=== PATIENT | female | born 1960 | race Caucasian/White ===

== ENCOUNTER 2019-03-22 17:00 | Emergency (ER) | payer MEDICARE ==
[~2019-03-22] VITALS: Ht 162.6 cm; Wt 83.9 kg
[~2019-03-22 17:00] MED LIST: CONSTULOSE10 GM/15 M PO; LOVASTATIN20 MG PO; VENTOLIN HFA18 GM INH
[2019-03-22] MEDS ORDERED: PROCHLORPERAZIN10 MG PO (17:15)
[2019-03-22] MEDS ORDERED: ONDANSETRON ODT8 MG PO (17:16)
[2019-03-22] MEDS ORDERED: FLOVENT HFA12 G1 INH (19:17)
--- NOTE | 2019-03-23 09:06 | EKG ---
[facility] [address] [facility] [place] [address] Signed Normal sinus rhythm Normal ECG No previous ECGs available Confirmed by SELENA BASS MD ([id number]) on 03/23/2019 9:06:00 AM Electronically Signed By: SELENA BASS MD 03/23/1907 PATIENT NAME: ELSY BAXTER Electrocardiogram DATE OF : 58 PHYSICIAN: SELENA BASS MD REPORT #: [id number] REPORT IS CONFIDENTIAL AND NOT TO BE RELEASED WITHOUT AUTHORIZATION
== END 2019-03-22 19:26 | disposition home or self-care (01) ==
LOC: ED 17:00
DX: J45.909 Unspecified asthma, uncomplicated (principal); J31.0 Chronic rhinitis; Z85.43 Personal history of malignant neoplasm of ovary; F17.200 Nicotine dependence, unspecified, uncomplicated; Z85.05 Personal history of malignant neoplasm of liver; Z85.030 Personal history of malignant carcinoid tumor of large intestine; Z85.028 Personal history of other malignant neoplasm of stomach; Z88.5 Allergy status to narcotic agent; Z79.899 Other long term (current) drug therapy
CPT/HCPCS: 71046; 85025; 93005; 93010; 99285-25; 99406

== ENCOUNTER 2019-05-13 08:10 | Emergency (ER) | payer MEDICARE, OTHER ==
[~2019-05-13] VITALS: Ht 162.6 cm; Wt 88.0 kg
[~2019-05-13 08:10] MED LIST changes: +FLOVENT HFA12 G1 INH; +ONDANSETRON ODT8 MG PO; +PROCHLORPERAZIN10 MG PO
--- OUTSIDE RECORDS SUMMARY | 2019-05-13 08:14 | XMS ---
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 [facility] MO[facility] [address] [place] [address] TOTAL 4 NOTE: Visits indicate total known visits. ED/UCC VISIT TRACKING (12 MO.) 05/13/2019 08:11 [facility] [place] TYPE: Emergency COMPLAINT: - BLOODY NOSE 04/23/2019 09:[address] [facility] TYPE: Emergency DIAGNOSES: - Antineoplastic chemotherapy induced pancytopenia - Epistaxis - Epistaxis - Encounter for antineoplastic chemotherapy - Thrombocytopenia, unspecified 03/22/2019 17:01 [facility] [place] TYPE: Emergency COMPLAINT: - DIFFICULTY BREATHING DIAGNOSES: - Allergy status to narcotic agent status - Personal history of malignant neoplasm of ovary - Nicotine dependence, unspecified, uncomplicated - Personal history of other malignant neoplasm of stomach - Chronic rhinitis - Personal history of malignant carcinoid tumor of large intestine - Unspecified asthma, uncomplicated - Other care home (current) drug therapy - Personal history of malignant neoplasm of liver - Shortness of breath 10/21/2018 16:[address] [facility] [place] TYPE: Emergency COMPLAINT: - L FLANK PAIN DIAGNOSES: - Other care home (current) drug therapy - Allergy status to narcotic agent status - Unspecified abdominal pain INPATIENT VISIT TRACKING (12 MO.) No inpatient visits to display in this time frame [id number]
== END 2019-05-13 15:20 | disposition short-term general hospital (02) ==
LOC: ED 08:10
DX: R04.0 Epistaxis (principal); D61.818 Other pancytopenia; D69.6 Thrombocytopenia, unspecified; C56.9 Malignant neoplasm of unspecified ovary; J45.909 Unspecified asthma, uncomplicated; F17.200 Nicotine dependence, unspecified, uncomplicated; Z88.5 Allergy status to narcotic agent; Z79.899 Other long term (current) drug therapy
CPT/HCPCS: 30901; 30905; 80053; 85025; 85610; 86850; 86900; 86901; 86927; 99285-25

== ENCOUNTER 2019-11-22 13:38 | Emergency (ER) | payer MEDICARE, OTHER ==
[~2019-11-22] VITALS: Ht 162.6 cm; Wt 81.7 kg
--- OUTSIDE RECORDS SUMMARY | ~2019-11-22 | XMS | Encounter Summary ---
Demographics + + + | Address | [address] | | | [place] [address] | + + + | Home Phone | | + + + | Preferred Language | Unknown | + + + | Marital Status | | + + + | Confucianist Affiliation | Unknown | + + + | Race | Unknown | + + + | Ethnic Group | Unknown | + + + Author + + + | Author | [facility] | | | and [place] | + + + | Organization | [facility] | | | and [place] | + + + | Address | Unknown | + + + | Phone | Unavailable | + + + Support + + + + + | Name | Relationship | Address | Phone | + + + + + | Jared John | ECON | [address] | | | | | [place] [address] | | + + + + + | Emory Larios | ECON | Unknown | | + + + + + Care Team Providers + +------+ + | Care Knowledge Management Advisor Name | Role | Phone | + +------+ + PCP | Unavailable | + +------+ + Encounter Details +--------+ + + + + | Date | Type | Department | Care Team | Description | +--------+ + + + + | 07/02/ | Orders Only | [facility] | Yancy Clifford MD | | | 2018 | | INFUSION SUPPORT | [address] | | | | | SERVICES [address] | | | | | [address] [place] | [address] | | | | | [address] | | | | | | [address] | | | | | | [phone] | | | +--------+ + + + + Social History + +-------+ +--------+------+ | Tobacco Use | Types | Packs/Day | Years | Date | | | | | Used | | + +-------+ +--------+------+ | Current Every Day | | 0.5 | | | | Smoker | | | | | + +-------+ [...] + + documented as of this encounter Progress Notes Conversion Transaction, Provider Unknown - 07/02/2019 1:00 PM PDTFormatting of this note m ight be different from the original. Progress Notes by Laila Jones RN at 07/02/19 1300 Author: Laila Jones RN Service: (none) Author Type: Registered Nurse Filed: 07/02/19 1305 Encounter Date: 07/02/2019 Status: Signed Front Elevator Operator: Laila Jones RN (Registered Nurse) Port accessed. Labs drawn. Port flushed. Left accessed for treatment. Laila Jones RN docume nted in this encounter Plan of Treatment +--------+ + + + + | Date | Type | Specialty | Care Team | Description | +--------+ + + + + | 11/26/ | Appointment | Infusion Therapy | Yancy Clifford MD | | | 2018 | | | [address] | | | | | | [place] | | | | | | [address] | | | | | | | | +--------+ + + + + | 11/26/ | Office | Oncology | Yancy Clifford MD | | | 2018 | Visit | | [address] | | | | | | [place] | | | | | | [address] | | | | | | | | | | | | [place] | | | | | | [place] [address] | [address] | | | | | | [place] [address] | | | | | | [phone] | | | | | | | | +--------+ + + + + | 11/26/ | Appointment | Infusion Therapy | Yancy Clifford MD | | | 2018 | | | [address] | | | | | | [place] | | | | | | [address] | | | | | | | | +--------+ + + + + | 12/17/ | Appointment | Infusion Therapy | Yancy Clifford MD | | | 2019 | | | [address] | | | | | | [place] | | | | | | [address] | | | | | | | | +--------+ + + + + | 12/17/ | Office | Oncology | Yancy Clifford MD | | | 2019 | Visit | | [address] | | | | | | [place] | | | | | | [address] | | | | | | | | +--------+ + + + + | 12/17/ | Appointment | Infusion Therapy | Yancy Clifford MD | | | 2019 | | | [address] | | | | | | [place] | | | | | | [address] | | | | | | | | +--------+ + + + + documented as of this encounter Procedures + +--------+ + + + | Procedure Name | Priori | Date/Time | Associated Diagnosis | Comments | | | ty | | | | + +--------+ + + + | URINALYSIS WITH | Routin | 07/02/2019 | | Results for this | | MICROSCOPIC IF | e | 12:59 PM | | procedure are in the | | INDICATED | | PDT | | results section. | + +--------+ + + + | URINALYSIS, | Routin | 07/02/2019 | | Results for this | | MICROSCOPIC ONLY | e | 12:59 PM | | procedure are in the | | | | PDT | | results section. | + +--------+ + + + | EXTERNAL LAB: CBC | Routin | 07/02/2019 | | Results for this | | | e | 12:58 PM | | procedure are in the | | | | PDT | | results section. | + +--------+ + + + | CA 125, QUANT | Routin | 07/02/2019 | | Results for this | | | e | 12:58 PM | | procedure are in the | | | | PDT | | results section. | + +--------+ + + + | COMPREHENSIVE | Routin | 07/02/2019 | | Results for this | | METABOLIC PANEL | e | 12:58 PM | | procedure are in the | | | | PDT | | results section. | + +--------+ + + + documented in this encounter Results Urinalysis, Microscopic Only (07/02/2019 12:59 PM PDT) + + + + + + | Component | Value | Ref Range | Performed | Pathologist | | | | | At | Signature | + + + + + + | WBC, UA | 1-5 | 0 - 5 /[HPF] | EXTERNAL | | | | | | LAB | | + + + + + + | RBC, UA | NONE SEEN | 0 - 5 /[HPF] | EXTERNAL | | | | | | LAB | | + + + + + + | Epithelial | 50-100 | /[LPF] | EXTERNAL | | | Cells | | | LAB | | + + + + + + | Bacteria, | TRACE (A) | | EXTERNAL | | | UA | | | LAB | | + + + + + + | MUCUS UA | 2+ | | EXTERNAL | | | | | | LAB | | + + + + + + + + | Specimen | + + | | + + + +---------+ + + | Performing | Address | City/State/Zipcode | Phone Number | | Organization | | | | + +---------+ + + | EXTERNAL LAB | | | | + +---------+ + + Urinalysis with Microscopic if Indicated (07/02/2019 12:59 PM PDT) + + + + + + | Component | Value | Ref Range | Performed | Pathologist | | | | | At | Signature | + + + + + + | Color | YELLOW | | EXTERNAL | | | | | | LAB | | + + + + + + | Clarity | CLEAR | | EXTERNAL | | | | | | LAB | | + + + + + + | Specific | 1.020 | 1.002 - 1.030 | EXTERNAL | | | [place] | | | LAB | | + + + + + + | Leukocyte | NEGATIVE | | EXTERNAL | | | Esterase, | | | LAB | | | Urine | | | | | + + + + + + | Nitrite, | NEGATIVE | | EXTERNAL | | | Urine | | | LAB | | + + + + + + | Urobilinoge | 0.2 | mg/dL | EXTERNAL | | | n, Urine | | | LAB | | + + + + + + | Protein, | 30 (A) | mg/dL | EXTERNAL | | | Urine | | | LAB | | + + + + + + | pH, Urine | 5.5 | 5.0 - 8.0 | EXTERNAL | | | | | | LAB | | + + + + + + | Blood, | NEGATIVE | | EXTERNAL | | | Urine | | | LAB | | + + + + + + | Ketones | NEGATIVE | mg/dL | EXTERNAL | | | | | | LAB | | + + + + + + | Bilirubin, | NEGATIVE | | EXTERNAL | | | Urine | | | LAB | | + + + + + + | Glucose, | NEGATIVE | mg/dL | EXTERNAL | | | Urine | | | LAB | | + + + + + + + + | Specimen | + + | Urine specimen | | (specimen) | + + + +---------+ + + | Performing | Address | City/State/Zipcode | Phone Number | | Organization | | | | + +---------+ + + | EXTERNAL LAB | | | | + +---------+ + + External Lab: CBC (07/02/2019 12:58 PM PDT) + + + + + + | Component | Value | Ref Range | Performed | Pathologist | | | | | At | Signature | + + + + + + | WBC | 7.68 | 3.80 - 11.00 | EXTERNAL | | | | | 10*3/uL | LAB | | + + + + + + | RED CELL | 4.26 | 3.70 - 5.10 | EXTERNAL | | | COUNT | | 10*6/uL | LAB | | + + + + + + | Hgb | 14.0 | 11.3 - 15.5 | EXTERNAL | | | | | g/dL | LAB | | + + + + + + | Hematocrit, | 41.3 | 34.0 - 46.0 % | EXTERNAL | | | POC | | | LAB | | + + + + + + | MCV | 97.0 | 80.0 - 100.0 fL | EXTERNAL | | | | | | LAB | | + + + + + + | MCH | 32.8 | 27.0 - 34.0 pg | EXTERNAL | | | | | | LAB | | + + + + + + | MCHC | 33.8 | 32.0 - 35.5 | EXTERNAL | | | | | g/dL | LAB | | + + + + + + | RDW-CV | 67.8 (H) | 37 - 53 fL | EXTERNAL | | | | | | LAB | | + + + + + + | Platelet | 194 | 150 - 400 | EXTERNAL | | | Count | | 10*3/uL | LAB | | | Plasma | | | | | + + + + + + | MPV | 8.0 | fL | EXTERNAL | | | | | | LAB | | + + + + + + | Differentia | AUTOMATED | | EXTERNAL | | | l Type | | | LAB | | + + + + + + | % Segmented | 59.72 | % | EXTERNAL | | | | | | LAB | | | Neutrophils | | | | | + + + + + + | % | 30.03 | % | EXTERNAL | | | Lymphocytes | | | LAB | | + + + + + + | % Monocytes | 6.48 | % | EXTERNAL | | | | | | LAB | | + + + + + + | % | 2.31 | % | EXTERNAL | | | Eosinophils | | | LAB | | + + + + + + | % Basophils | 1.46 | % | EXTERNAL | | | | | | LAB | | + + + + + + | Absolute | 4.58 | 1.90 - 7.40 | EXTERNAL | | | Segmented | | 10*3/uL | LAB | | | Neutrophils | | | | | + + + + + + | Absolute | 2.31 | 1.00 - 3.90 | EXTERNAL | | | Lymphocytes | | 10*3/uL | LAB | | + + + + + + | Absolute | 0.50 | 0.00 - 0.80 | EXTERNAL | | | Monocytes | | 10*3/uL | LAB | | + + + + + + | Absolute | 0.18 | 0.00 - 0.50 | EXTERNAL | | | Eosinophils | | 10*3/uL | LAB | | + + + + + + | Absolute | 0.11 (H) | 0.00 - 0.10 | EXTERNAL | | | Basophils | | 10*3/uL | LAB | | + + + + + + | RBC | 3+ | | EXTERNAL | | | Morphology | | | LAB | | + + + + + + | RBC | ANISO | | EXTERNAL | | | Morphology | | | LAB | | + + + + + + | Platelet | ADEQUATE | | EXTERNAL | | | Estimate | | | LAB | | + + + + + + + + | Specimen | + + | Blood specimen | | (specimen) | + + + +---------+ + + | Performing | Address | City/State/Zipcode | Phone Number | | Organization | | | | + +---------+ + + | EXTERNAL LAB | | | | + +---------+ + + CA 125, Quant (07/02/2019 12:58 PM PDT) + + + + + + | Component | Value | Ref Range | Performed | Pathologist | | | | | At | Signature | + + + + + + | CA-125 | 11.9Comment: THE SIEMENS | 0 - 35 U/mL | EXTERNAL | | | | (FORMERLY [facility]) ADVIA | | LAB | | | | CENTAUR IMMUNOASSAY | | | | | | METHOD IS USED. RESULTS | | | | | | OBTAINED WITH DIFFERENT | | | | | | ASSAY METHODS OR KITS | | | | | | CANNOT BE USED | | | | | | INTERCHANGEABLY. | | | | + + + + + + + + | Specimen | + + | Blood specimen | | (specimen) | + + + +---------+ + + | Performing | Address | City/State/Zipcode | Phone Number | | Organization | | | | + +---------+ + + | EXTERNAL LAB | | | | + +---------+ + + Comprehensive Metabolic Panel (07/02/2019 12:58 PM PDT) + + + + + + | Component | Value | Ref Range | Performed | Pathologist | | | | | At | Signature | + + + + + + | Na | 139 | 135 - 145 | EXTERNAL | | | | | mmol/L | LAB | | + + + + + + | K | 4.2 | 3.5 - 4.9 | EXTERNAL | | | | | mmol/L | LAB | | + + + + + + | Cl | 103 | 99 - 109 mmol/L | EXTERNAL | | | | | | LAB | | + + + + + + | CO2 | 30 | 23 - 32 mmol/L | EXTERNAL | | | | | | LAB | | + + + + + + | Anion Gap | 10 | 5 - 20 mmol/L | EXTERNAL | | | | | | LAB | | + + + + + + | Glucose, | 155 (H) | 65 - 99 mg/dL | EXTERNAL | | | Fasting | | | LAB | | + + + + + + | BUN | 15 | 8 - 25 mg/dL | EXTERNAL | | | | | | LAB | | + + + + + + | Creatinine | 0.74 | 0.50 - 1.00 | EXTERNAL | | | | | mg/dL | LAB | | + + + + + + | BUN/Creatin | 20 | | EXTERNAL | | | ine Ratio | | | LAB | | + + + + + + | Calcium | 9.6 | 8.5 - 10.5 | EXTERNAL | | | | | mg/dL | LAB | | + + + + + + | Protein, | 6.9 | 6.3 - 8.2 g/dL | EXTERNAL | | | Total | | | LAB | | + + + + + + | Albumin | 3.6 | 3.3 - 4.8 g/dL | EXTERNAL | | | | | | LAB | | + + + + + + | Globulin | 3.3 | 1.3 - 4.9 g/dL | EXTERNAL | | | | | | LAB | | + + + + + + | A/G Ratio | 1.1 | 1.0 - 2.4 | EXTERNAL | | | | | | LAB | | + + + + + + | Bilirubin | 0.4 | 0.1 - 1.5 mg/dL | EXTERNAL | | | Total | | | LAB | | + + + + + + | ALP, | 61 | 35 - 115 U/L | EXTERNAL | | | External | | | LAB | | + + + + + + | AST | 15 | 10 - 45 U/L | EXTERNAL | | | | | | LAB | | + + + + + + | ALT | 14 | 10 - 65 U/L | EXTERNAL | | | | | | LAB | | + + + + + + | Estimated | >60Comment: GFR <60: | mL/min/1.73_m2 | EXTERNAL | | | GFR | CHRONIC KIDNEY DISEASE, | | LAB | | | | IF FOUND OVER A 3 MONTH | | | | | | PERIOD. GFR <15: KIDNEY | | | | | | FAILURE. FOR | | | | | | AMERICANS, MULTIPLY THE | | | | | | CALCULATED GFR BY 1.210. | | | | | | This eGFR is calculated | | | | | | using the MDRD IDMS | | | | | | traceable equation. | | | | + + + + + + + + | Specimen | + + | Blood specimen | | (specimen) | + + + +---------+ + + | Performing | Address | City/State/Zipcode | Phone Number | | Organization | | | | + +---------+ + + | EXTERNAL LAB | | | | + +---------+ + + documented in this encounter Visit Diagnoses Not on filedocumented in this encounter"
--- OUTSIDE RECORDS SUMMARY | ~2019-11-22 | XMS | Encounter Summary ---
Demographics + + + | Address | [address] | | | [place] [address] | + + + | Home Phone | | + + + | Preferred Language | Unknown | + + + | Marital Status | | + + + | Episcopalian Affiliation | Unknown | + + + | Race | Unknown | + + + | Ethnic Group | Unknown | + + + Author + + + | Author | [facility] | | | and [place] | + + + | Organization | [facility] | | | and [place] | + + + | Address | Unknown | + + + | Phone | Unavailable | + + + Support + + + + + | Name | Relationship | Address | Phone | + + + + + | Jared Easonrick | EBENEZER | [address] | | | | | [place] [address] | | + + + + + | Emory Larios | EBENEZER | Unknown | | + + + + + Care Team Providers + +------+ + | Care Librarian Helper Name | Role | Phone | + +------+ + | Shannan Deng | PCP | | + +------+ + Reason for Visit + + + | Reason | Comments | + + + | Follow-up | Malignant neoplasm of left ovary | + + + Encounter Details +--------+---------+ + + + | Date | Type | Department | Care Team | Description | +--------+---------+ + + + | 09/03/ | Office | [facility] | Yancy Clifford MD | Malignant neoplasm | | 2019 | Visit | HEMATOLOGY AND | [address] | of left ovary (HCC) | | | | ONCOLOGY [address] | [place] | (Primary Dx) | | | | [address] | [address] | | | | | [place] | | | | | | [address] | Jennyfer Calvert | | | | | [phone] | M, [employer]TENANCE ENG[employer] [address] | | | | | [address] | | | | | | [place] [address] | | | | | | [phone] | | | | | | | | +--------+---------+ + + + Social History + +-------+ [...] + + documented as of this encounter Last Filed Vital Signs + + + + + | Vital Sign | Reading | Time Taken | Comments | + + + + + | Blood Pressure | 132/74 | 09/03/2019 8:36 AM | | | | | PDT | | + + + + + | Pulse | 95 | 09/03/2019 8:36 AM | | | | | PDT | | + + + + + | Temperature | 36.4 C (97.5 F) | 09/03/2019 8:36 AM | | | | | PDT | | + + + + + | Respiratory Rate | 16 | 09/03/2019 8:36 AM | | | | | PDT | | + + + + + | Oxygen Saturation | 95% | 09/03/2019 8:36 AM | | | | | PDT | | + + + + + | Inhaled Oxygen | - | - | | | Concentration | | | | + + + + + | Weight | 84.4 kg (186 lb 1.3 | 09/03/2019 8:36 AM | | | | oz) | PDT | | + + + + + | Height | 162.6 cm (5' 4.02") | 09/03/2019 8:36 AM | | | | | PDT | | + + + + + | Body Mass Index | 31.92 | 09/03/2019 8:36 AM | | | | | PDT | | + + + + + documented in this encounter Progress Notes Jennyfer Calvert, CIERRA - 09/03/2019 8:45 AM PDTFormatting of this note might be differ ent from the original. [facility] Oncology Progress Note Patient Name: RAMILA BAXTER Date of : 1960 Age: 59 y.o. PCP: SALINA Elaine Surgeon: Dr. 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 The CT showed left pleural effusion, c omplex left adnexal mass, perioartic and common iliac adenopathy, ascites and omental caking . CA125 was 1994. 04/2017 Pathology S/p paracentesis to drain ascites and thoracentesis to drain the left pleural effusion. B ot cytology was positive for ovarian cancer. 04/2017 - 06/2017 Chemotherapy Received 3 cycles of chemo with dose dense carboplatin/ paclitaxel. 05/2017 Genetic Testing Negative genetic testing through [employer] 07/2017 Surgery S/p debulking surgery. 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 Omentum involved by metastatic cancer. 07/2017 - 09/2017 Chemotherapy Received 3 cycles of dose dense carboplatin/ paclitaxel. 09/2017 Remission In remission by scan. CA125 normalized. 12/2018 - Recurrence Rising CA125. CT CAP with contrast showed abdominal / pelvic ANAI and retroperitoneal meta static deposits and masses at B ovarian bed. 01/2019 - Chemotherapy Received 5 cycles of palliative chemo with carboplatin/ gemcitabine/Avastin with great pa rtial response. On maintenance Avastin since 05/2019. Cancer Staging Malignant neoplasm of left ovary (HCC) Staging form: Ovary, Fallopian Tube, And Primary Peritoneal Carcinoma, AJCC 8th Edition - Pathologic: FIGO Stage JOVAN - Signed by Yancy Clifford MD on 07/24/2019 Laterality: Left Interval History Ramila is here today in follow-up for ovarian cancer and clearance for treatment. She stat es she is feeling overall well. She reports receiving her flu shot a week and a half ago. S he denies any concerns or changes since her last visit. She denies fevers or chills. She d enies chest pain shortness of breath or new cough. She denies abdominal pain nausea or childs ges in bowel or bladder function. Medical History Allergies Allergen Reactions Codeine Nausea And Vomiting Past Medical History: Diagnosis Date Arthritis Asthma Blood clot in vein Broken bones Chickenpox Hyperlipidemia Malignant neoplasm (HCC) Past Surgical History: Procedure Laterality Date HYSTERECTOMY Family History Problem Relation Age of Onset Cancer Mother Lung cancer Mother Cancer Father Colon cancer Father Heart attack Father Cancer Other Social History Socioeconomic History Marital status: Spouse name: Not on file Number of children: 2 Years of education: 11 Highest education level: Not on file Social Needs Financial resource strain: Not on file Food insecurity - worry: Not on file Food insecurity - inability: Not on file Transportation needs - medical: Not on file Transportation needs - non-medical: Not on file Occupational History Not on file Tobacco Use Smoking status: Current Every Day Smoker Packs/day: 0.50 Smokeless tobacco: Never Used Substance and Sexual Activity Alcohol use: Not Currently Drug use: Not Currently Comment: Drug use: No Sexual activity: Not on file Other Topics Concern Not on file Social History Narrative Not on file Patient's medical history above reviewed and updated on 09/03/2019 Medications Current Outpatient Medications Medication Sig Dispense Refill albuterol (PROVENTIL HFA) 90 mcg/puff inhaler Inhale 2 puffs into the lungs every 4 (fo ur) hours as needed for Wheezing. fluticasone (FLONASE) 50 mcg/nasal spray 1 spray by Nasal route. lactulose 10 g/15 mL solution Take 15 mLs by mouth every 2 (two) hours as needed (const ipation). Until a good bowel movement. 240 mL 3 loratadine (CLARITIN) 10 mg tablet Take 10 mg by mouth daily. ondansetron (ZOFRAN) 8 MG tablet Take 8 mg by mouth every 8 (eight) hours as needed for Nausea. polyethylene glycol (MIRALAX) packet Take 17 g by mouth daily. prochlorperazine 10 mg tablet Take 1 tablet by mouth every 6 (six) hours as needed. 30 tablet 3 No current facility-administered medications for this visit. Medications reviewed and updated on 09/03/2019 Review of Systems Review of Systems Constitutional: Negative for chills, fatigue and fever. HENT: Negative for mouth sores, nosebleeds and trouble swallowing. Eyes: Negative for visual disturbance. Respiratory: Negative for cough and shortness of breath. Cardiovascular: Negative for chest pain, palpitations and leg swelling. Gastrointestinal: Negative for abdominal pain, constipation, diarrhea, nausea and vomiting. Genitourinary: Negative for difficulty urinating. Musculoskeletal: Negative for arthralgias and back pain. Skin: Negative for rash. Neurological: Positive for headaches (Occasional). Negative for dizziness, light-headedness and numbness. Hematological: Negative for adenopathy. Does not bruise/bleed easily. Physical Exam BP 132/74 | Pulse 95 | Temp 36.4 C (97.5 F) (Tympanic) | Resp 16 | Ht 1.626 m (5' 4 .02") | Wt 84.4 kg (186 lb 1.3 oz) | SpO2 95% | BMI 31.92 kg/m ECO Physical Exam Constitutional: She is oriented to person, place, and time. No distress. HENT: Mouth/Throat: Oropharynx is clear and moist. No oropharyngeal exudate. Eyes: Pupils are equal, round, and reactive to light. No scleral icterus. Neck: Neck supple. Cardiovascular: Normal rate, regular rhythm and normal heart sounds. Pulmonary/Chest: Effort normal and breath sounds normal. She has no wheezes. Abdominal: Soft. Bowel sounds are normal. She exhibits no distension. There is no splenomeg sole or hepatomegaly. There is no tenderness. There is no CVA tenderness. Exam is limited due to body habitus Musculoskeletal: She exhibits no edema. Lymphadenopathy: She has no cervical adenopathy. She has no axillary adenopathy. Right: No supraclavicular adenopathy present. Left: No supraclavicular adenopathy present. Neurological: She is alert and oriented to person, place, and time. Skin: Skin is warm and dry. Vitals reviewed. Labs and Imaging No visits with results within 1 Week(s) from this visit. Latest known visit with results is: Orders Only on 08/14/2019 Component Date Value Ref Range Status CA125 08/13/2019 11.8 0 - 35 U/mL Final Comment: THE SIEMENS (FORMERLY NICE) ADVIA CatmojiAUR IMMUNOASSAY METHOD IS USED. RESULTS OBTAINED WITH DIFFERENT ASSAY METHODS OR KITS CANNOT BE USED INTERCHANGEABLY. Testing performed at [facility];[address] [facility];[place] [address] Ct Chest Abdomen Pelvis W Contrast Result Date: 06/05/2019 1. Improvement as compared to the prior exam. The metastatic adenopathy seen at the retrop eritoneum and pelvis is significantly improved. There is no residual enlarged nodes. 2. The left adnexal mass is significantly decreased in size as compared to the prior exam. The ri ght ovarian cystic mass seen on the prior exam is similar in size. 3. Small left pleural eff usion. Mild left basilar atelectasis. 4. The nodule anterior to the inferior pelvic wall is slightly smaller as compared to the prior exam, currently measuring 1 x 0.9 cm, prior measu rement 1.3 x 1.2 cm. Signed by: Catracho Bravo, Dell Sign Date/Time: 06/05/2019 4:12 PM Assessment Ms. Ramila Baxter is a pleasant 59 y.o. female with: 1. 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 She received 3 cycles of dose dense carboplatin/ paclitaxel f ollowed by debulking surgery. She then completed another 3 cycles of same chemo at the end o f 09/2017. Her disease recurred in 12/2018. She is s/p 5 cycles of alliative chemo with carboplatin/ gemcitabine/ Avastin completed i n 05/2019 with very good response. She is currently on maintenance Avastin. She continues to do well and is tolerating the Avastin without any major side effects. CA1 25 from 08/13 is 11.8. Review of systems, physical exam and laboratory data are appropriate. We will continue to follow CA125.We will plan for 1 year of maintenance treatment. Plan t o repeat imaging in November. We will proceed with Avastin today. The patient was educated regarding any symptoms of worsening disease. Plan At the end of today's discussion, the patient expressed understanding and willingness to pr oceed with the plan as outlined below: 1. Proceed with Avastin today. 2. Return in 3 weeks with labs prior. All the patient's questions were answered to her satisfaction. The patient is to call with any questions or concerns. 25 minutes were spent face to face with the patient. Over 50% of the time was spent in coun seling and coordination of care. CIERRA Hartley, MIKE [facility] Hemat[facility] Oncology 09/03/2019 Portions of this chart may have been created with voice recognition software. Occasional wr paul-word or "sound-alike" substitutions may have occurred, even after review, due to the inh erent limitations of voice recognition software. Please read the chart carefully and recogni ze, using context, where these substitutions have occurred. Personal communication is reques alden for any clarifications. documented in this encounter Plan of Treatment [...] [place] | | | | | | [id number] | | | | | | | | +--------+ + + + + | 11/26/ | Office | Oncology | Yancy Clifford MD | | | 2018 | Visit | | [address] | | | | | | [place] | | | | | | [address] | | | | | | | | | | | | Jennyfer Calvert | | | | | | CarmineCIERRA [address] | | | | | [address] | | | | | | [place] [address] | | | | | | [phone] | | | | | | | | +--------+ + + + + | 11/26/ | Appointment | Infusion Therapy | Yancy Clifford MD | | | 2018 | | | [address] | | | | | | [place] | | | | | | [address] | | | | | | | | +--------+ + + + + | 12/17/ | Appointment | Infusion Therapy | Yancy Clifford MD | | | 2019 | | | [address] | | | | | | [place] | | | | | | [address] | | | | | | | | +--------+ + + + + | 12/17/ | Office | Oncology | Yancy Clifford MD | | | 2019 | Visit | | [address] | | | | | | [place] | | | | | | [address] | | | | | | | | +--------+ + + + + | 12/17/ | Appointment | Infusion Therapy | Yancy Clifford MD | | | 2020 | | | [address] | | | | | | [place] | | | | | | [address] | | | | | | | | +--------+ + + + + documented as of this encounter Visit Diagnoses + + | Diagnosis | + + | 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
--- OUTSIDE RECORDS SUMMARY | ~2019-11-22 | XMS | Encounter Summary ---
Demographics + + + | Address | [address] | | | [place] [address] | + + + | Home Phone | | + + + | Preferred Language | Unknown | + + + | Marital Status | | + + + | Zoroastrian Affiliation | Unknown | + + + | Race | Unknown | + + + | Ethnic Group | Unknown | + + + Author + + + | Author | [facility] | | | and [place] | + + + | Organization | [facility] | | | and [...] | | | | [place] [address] | | + + + + + | Emory Larios | ECON | Unknown | | + + + + + Care Team Providers + +------+ + | Care Quality Assurance Technician Name | Role | Phone | + +------+ + | Shannan Deng | PCP | | + +------+ + Reason for Visit +--------+ + | Reason | Comments | +--------+ + | Cancer | follow-up | +--------+ + Encounter Details +--------+---------+ + + + | Date | Type | Department | Care Team | Description | +--------+---------+ + + + | 08/13/ | Office | [facility] | Yancy Clifford MD | Malignant neoplasm | | 2019 | Visit | HEMATOLOGY AND | [address] | of left ovary (HCC) | | | | ONCOLOGY [address] | [place] | (Primary Dx) | | | | [address] | [address] | | | | | [place] | | | | | | [address] | Jennyfer Calvert | | | | | [phone] | CIERRA Lou [address] | | | | | | [address] | | | | | | [place] [address] | | | | | | [phone] | | | | | | | [...] + + + | Blood Pressure | 126/82 | 08/13/2019 9:17 AM | | | | | PDT | | + + + + + | Pulse | 94 | 08/13/2019 9:17 AM | | | | | PDT | | + + + + + | Temperature | 36.6 C (97.9 F) | 08/13/2019 9:17 AM | | | | | PDT | | + + + + + | Respiratory Rate | 16 | 08/13/2019 9:17 AM | | | | | PDT | | + + + + + | Oxygen Saturation | 97% | 08/13/2019 9:17 AM | | | | | PDT | | + + + + + | Inhaled Oxygen | - | - | | | Concentration | | | | + + + + + | Weight | 84.4 kg (186 lb 1.4 | 08/13/2019 9:17 AM | | | | oz) | PDT | | + + + + + | Height | 162.6 cm (5' 4.02") | 08/13/2019 9:17 AM | | | | | PDT | | + + + + + | Body Mass Index | 31.93 | 08/13/2019 9:17 AM | | | | | PDT | | + + + + + documented in this encounter Progress Notes Jennyfer Calvert, YARDING SUPERVISOR - 08/13/2019 9:45 AM PDTFormatting of this note might be differ ent from the original. [facility] Hematology & Oncology Oncology Progress Note [...] to drain the left pleural effusion. B oth cytology was positive for ovarian cancer. 04/2017 - 06/2017 Chemotherapy Received 3 cycles of chemo with dose dense carboplatin/ paclitaxel. 05/2017 Genetic Testing Negative genetic testing through [employer]. 07/2017 Surgery S/p debulking surgery. Final pathology [...] Left Interval History Ramila is here today accompanied by her for follow-up of ovarian cancer and ernestina pena for treatment. She states she is feeling overall well. She denies any concerns or ayala es since her last appointment. She reports occasional headaches. She denies dizziness, fev er or chills. She denies chest pain, shortness of breath or new cough. She denies abdomina l pain, nausea, vomiting or changes in bowel or bladder function. She denies any new bone a ches or pains. Medical History Allergies Allergen Reactions Codeine Nausea [...] Substance and Sexual Activity Alcohol use: Not on file Drug use: Not on file Comment: Drug use: No Sexual activity: Not on file Other Topics Concern Not on file Social History Narrative Not on file Patient's medical history above reviewed and updated on 08/13/2019 Medications Current Outpatient Medications Medication Sig Dispense Refill albuterol (PROVENTIL HFA) 90 mcg/puff inhaler Inhale 2 puffs into the lungs every 4 (fo ur) hours as needed for Wheezing. fluticasone (FLONASE) 50 mcg/nasal spray 1 spray by Nasal route. fluticasone (FLOVENT HFA) 220 mcg/puff inhaler Inhale 1 puff into the lungs 2 (two) garrett es daily. Rinse mouth after use lactulose 10 g/15 mL solution Take 15 [...] this visit. Medications reviewed and updated on 08/13/2019 Review of Systems Review of Systems Constitutional: Negative for chills, fatigue and fever. HENT: Negative for mouth sores and nosebleeds. Eyes: Negative for visual disturbance. Respiratory: Negative for cough and shortness of breath. Cardiovascular: Negative for chest pain, palpitations and leg swelling. Gastrointestinal: Negative for abdominal pain, constipation, diarrhea, nausea and vomiting. Genitourinary: Negative for difficulty urinating. Musculoskeletal: Negative for arthralgias and back pain. Neurological: Positive for headaches (Occasional). Negative for dizziness, light-headedness and numbness. Hematological: Negative for adenopathy. Does not bruise/bleed easily. Physical Exam BP 126/82 | Pulse 94 | Temp 36.6 C (97.9 F) | Resp 16 | Ht 1.626 m (5' 4.02") | Wt 84.4 kg (186 lb 1.4 oz) | SpO2 97% | BMI 31.93 kg/m ECO Physical Exam Constitutional: No distress. HENT: Mouth/Throat: Oropharynx is clear and moist. No oropharyngeal exudate. Eyes: Pupils are equal, round, and reactive to light. No scleral icterus. Neck: Neck supple. Cardiovascular: Normal rate, regular rhythm and normal heart sounds. Pulmonary/Chest: Effort normal and breath sounds normal. She has no wheezes. Abdominal: Soft. Bowel sounds are normal. She exhibits no distension. There is no hepatospl enomegaly. There is no tenderness. There is no CVA tenderness. Exam limited due to body habitus Lymphadenopathy: She has no cervical adenopathy. She has no axillary adenopathy. Right: No supraclavicular adenopathy present. Left: No supraclavicular adenopathy present. Vitals reviewed. Labs and Imaging Hospital Outpatient Visit on 08/13/2019 Component Date Value Ref Range Status WBC 08/13/2019 7.71 3.80 - 11.00 K/uL Final RBC 08/13/2019 4.77 3.70 - 5.10 M/uL Final Hemoglobin 08/13/2019 14.9 11.3 - 15.5 g/dL Final Hematocrit 08/13/2019 44.2 34.0 - 46.0 % Final MCV 08/13/2019 92.7 80.0 - 100.0 fl Final MCH 08/13/2019 31.2 27.0 - 34.0 pg Final MCHC 08/13/2019 33.6 32.0 - 35.5 g/dL Final RDW-SD 08/13/2019 60.4* 37 - 53 fl Final Platelet Count 08/13/2019 213 150 - 400 K/uL Final MPV 08/13/2019 7.3 fl Final Diff Type 08/13/2019 AUTOMATED Final % Neutrophils 08/13/2019 64.21 % Final % Lymphocytes 08/13/2019 29.03 % Final Monocyte % 08/13/2019 4.82 % Final Eosinophils % 08/13/2019 1.09 % Final Basophils % 08/13/2019 0.85 % Final Neutrophils, Absolute 08/13/2019 4.95 1.90 - 7.40 K/uL Final Absolute Lymphocytes 08/13/2019 2.24 1.00 - 3.90 K/uL Final Absolute Monocytes 08/13/2019 0.37 0.00 - 0.80 K/uL Final Eosinophils, Absolute 08/13/2019 0.08 0.00 - 0.50 K/uL Final Basophils, Absolute 08/13/2019 0.07 0.00 - 0.10 K/uL Final RBC Morphology 08/13/2019 2+ Final Comment: ANISO NORMAL PLT MORPH Testing Performed at [facility], [address] [facility], [address], [place] [address] Na 08/13/2019 139 135 - 145 mmol/L Final K 08/13/2019 4.1 3.5 - 4.9 mmol/L Final Cl 08/13/2019 104 99 - 109 mmol/L Final CO2 08/13/2019 27 23 - 32 mmol/L Final Anion Gap 08/13/2019 12 5 - 20 mmol/L Final Glucose 08/13/2019 158* 65 - 99 mg/dL Final BUN 08/13/2019 12 8 - 25 mg/dL Final Creatinine 08/13/2019 0.71 0.50 - 1.00 mg/dL Final BUN/Creatinine Ratio 08/13/2019 17 Final Calcium 08/13/2019 9.5 8.5 - 10.5 mg/dL Final Protein, Total 08/13/2019 7.2 6.3 - 8.2 g/dL Final Albumin 08/13/2019 3.8 3.3 - 4.8 g/dL Final Globulin 08/13/2019 3.4 1.3 - 4.9 g/dL Final A/G Ratio 08/13/2019 1.1 1.0 - 2.4 Final BILIRUBIN, TOTAL 08/13/2019 0.3 0.1 - 1.5 mg/dL Final ALK PHOS 08/13/2019 66 35 - 115 U/L Final AST 08/13/2019 12 10 - 45 U/L Final ALT 08/13/2019 11 10 - 65 U/L Final Estimated GFR 08/13/2019 >60 >60 mL/min/1.73m2 Final Comment: GFR <60: CHRONIC KIDNEY DISEASE, IF FOUND OVER A 3 MONTH PERIOD. GFR <15: KIDNEY FAILURE. FOR AMERICANS, MULTIPLY THE CALCULATED GFR BY 1.210. This eGFR is calculated using the MDRD IDMS traceable equation. Testing Performed at [facility], [address], [address], [place] [address] PRO/CREA RATIO,URINE 08/13/2019 0.293 Final Testing performed at [facility];[address] [facility];[place] [address] Color, UA 08/13/2019 YELLOW Final Clarity, UA 08/13/2019 CLEAR Final Specific [place], Urine 08/13/2019 1.025 1.002 - 1.030 Final Leukocyte esterase, UA 08/13/2019 NEGATIVE NEG Final Nitrite, UA 08/13/2019 NEGATIVE NEG Final Urobilinogen, Ur 08/13/2019 0.2 <1.1 mg/dL Final Protein, Urine (mg/dL) 08/13/2019 100* NEG mg/dL Final pH, Urine 08/13/2019 5.0 5.0 - 8.0 Final Blood, UA 08/13/2019 NEGATIVE NEG Final Ketones, UA 08/13/2019 NEGATIVE NEG mg/dL Final Bilirubin, UA 08/13/2019 NEGATIVE NEG Final Glucose, Ur 08/13/2019 NEGATIVE NEG mg/dL Final Testing Performed at [facility], [address], [address], [place] [address] Creatinine, random urine 08/13/2019 167.0 mg/dL Final Comment: NO NORMAL RANGE ESTABLISHED Testing performed at [facility];[address] [facility];[place] [address] Protein, Urine 08/13/2019 49 mg/dL Final Comment: NO NORMAL RANGE ESTABLISHED Testing performed at [facility];[address] [facility];[place] [address] WBC UA 08/13/2019 0-2 0 - 5 /hpf Final RBC UA 08/13/2019 0-2 0 - 5 /hpf Final SQUAMOUS EPITHELIAL UA 08/13/2019 16-25 /lpf Final BACTERIA UA 08/13/2019 TRACE* NONE Final MUCUS UA 08/13/2019 4+ Final CASTS 08/13/2019 1-5 /lpf Final Comment: HYALINE Testing Performed at [facility], [address], [address], [place] [address] Ct Chest Abdomen Pelvis W Contrast Result [...] 1.3 x 1.2 cm. Signed by: Catracho Bravo Isaac Sign Date/Time: 06/05/2019 4:12 PM Assessment Ms. [...] response. She is currently on maintenance Avastin. she continues to tolerate the treatment with no obvious side effects. There is no clinical evidence of disease progression. The review of systems, physical exam and lab results are ap propriate. We will proceed with treatment today. We will plan for a total 1 year of treatme nt. Continue to follow CA125. We will repeat imaging in November. The patient was educated regarding any symptoms of worsening disease. Plan At the end of today's discussion, the patient expressed understanding and willingness to pr oceed with the plan as outlined below: 1. Proceed with treatment today. 2. Follow-up in 3 weeks with labs prior. All the patient's questions were answered to her satisfaction. The patient is to call with any questions or concerns. 25 minutes were spent face to face with the patient. Over 50% of the time was spent in coun seling and coordination of care. CIERRA Hartley, MIKE [facility] Hematology Oncology 08/13/2019 Portions of this chart may have been [...] [place] | | | | | | [address] | | | | | | | | +--------+ + + + + | 11/26/ | Office | Oncology | Yancy Clifford MD | | | 2018 | Visit | | [address] | | | | | | [place] | | | | | | [address] | | | | | | | | | | | | Jennyfer Calvert | | | | | | EVELINE LouP [address] | | | | [address] | | | | | | [place] [address] | | | | | | [phone] | | | | | | | | +--------+ + + + + | 11/26/ | Appointment | Infusion Therapy | Yancy Clifford MD | | | 2018 | | | [address] | | | | | | [place] | | | | | | [address] | | | | | | | | +--------+ + + + + | 12/17/ | Appointment | Infusion Therapy | Yancy Clifford MD | | | 2019 | | | [address] | | | | | | [place] | | | | | | [address] | | | | | | | | +--------+ + + + + | 12/17/ | Office | Oncology | Yancy Clifford MD | | | 2019 | Visit | | [address] | | | | | | [place] | | | | | | [address] | | | | | | | | +--------+ + + + + | 12/17/ | Appointment | Infusion Therapy | Yancy Clifford MD | | | 2019 | | | [address] | | | | | | [place] | | | | | | [address] | | | | | | | | +--------+ + + + + documented as of this encounter Results CA 125, Quant (08/13/2019 8:46 AM PDT) + + + + + + | Component | Value | Ref Range | Performed | Pathologist | | | | | At | Signature | + + + + + + | CA125 | 11.8Comment: [facility] | 0 - 35 U/mL | REFERENCE | | | | (FORMER[facility]) [facility] | | LAB | | | | CENTAUR IMMUNOASSAY | | [facility] | | | | METHOD IS USED.RESULTS | | LABORATORY | | | | OBTAINED WITH DIFFERENT | | | | | | ASSAY METHODS OR KITS | | | | | | CANNOT BE | | | | | | USEDINTERCHANGEABLY.Test | | | | | | ing performed at | | | | | | TCL;[address] [facility] | | | | | | [facility];[place] [address] | | | | | | | | | | + + + + + + + + | Specimen | + + | Blood | + + + + + + + | Performing | Address | City/State/Zipcode | Phone Number | | Organization | | | | + + + + + | REFERENCE LAB | [address] [place] [address] | [place] [address] | [phone] | | [facility] | Blvd. | | | | LABORATORY | | | | + + + + + | REFERENCE LAB | [address] [place] [address] | [place] [address] | | | [facility] | Blvd. 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
--- OUTSIDE RECORDS SUMMARY | ~2019-11-22 | XMS | Encounter Summary ---
Demographics + + + | Address | [address] | | | [place] [address] | + + + | Home Phone | | + + + | Preferred Language | Unknown | + + + | Marital Status | | + + + | Quaker Affiliation | Unknown | + + + | Race | Unknown | + + + | Ethnic Group | Unknown | + + + Author + + + | Author | [facility] | | | and [place] | + + + | Organization | [facility] | | | [...] | | | | [place] [address] | | + + + + + | Emory Larios | ECON | Unknown | | + + + + + Care Team Providers + +------+ + | Care Christian Counselor Name | Role | Phone | + +------+ + | Shannan Deng | PCP | | + +------+ + Encounter Details +--------+ + + + + | Date | Type | Department | Care Team | Description | +--------+ + + + + | 10/15/ | Hospital | [facility] | Yancy Clifford MD | 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) | | | | SERVICES [address] | [place] | (Primary Dx); | | | | [address] [place] | [id number] | Peritoneal | | | | [address] [place], [place] | | carcinomatosis | | | | [address] | Dick Coreas RN | (HCC); Pleural | | | | [phone] | | effusion, malignant; | | | | | | Encounter for | | | | | | antineoplastic | | | | | | chemotherapy and | | | | | | immunotherapy | +--------+ + + + + Social [...] documented as of this encounter Progress Notes Dick Coreas RN - 10/15/2019 8:45 AM PSTPort access, no blood return, pt left accessed for tx. Sent to [facility] for peripheral draw 19 9:06 AM PSTdocumented in this encounter Plan of Treatment +--------+ [...] [place] | | | | | | [address] | | | | | | | | +--------+ + + + + | 11/26/ | Office | Oncology | Yancy Clifford MD | | | 2018 | Visit | | [address] | | | | | | [place] | | | | | | [address] | | | | | | | | | | | | Jennyfer Calvert | | | | | | [facility] [address] | | | | | | [place] [address] | | | | | | [phone] | | | | | | | | +--------+ + + + + | 11/26/ | Appointment | Infusion Therapy | Yancy Clifford MD | | | 2018 | | | [address] | | | | | | [place] | | | | | | [address] | | | | | | | | +--------+ + + + + | 12/17/ | Appointment | Infusion Therapy | Yancy Clifford MD | | | 2019 | | | [address] | | | | | | [place] | | | | | | [address] | | | | | | | | +--------+ + + + + | 12/17/ | Office | Oncology | Yancy Clifford MD | | | 2019 | Visit | | [address] | | | | | | [place] | | | | | | [address] | | | | | | | | +--------+ + + + + | 12/17/ | Appointment | Infusion Therapy | Yancy Clifford MD | | | 2019 | | | [address] | | | | | | [place] | | | | | | [address] | | | | | | | | +--------+ + + + + documented as of this encounter Visit Diagnoses + + | Diagnosis | + + | 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 | + + | 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, unspecified | + + | Pleural effusion, malignant Malignant pleural effusion | + + | Encounter for antineoplastic chemotherapy and immunotherapy | + + documented in this encounter Administered Medications + +--------+ +-------+------+------+ | Medication Order | MAR | Action | Dose | Rate | Site | | | Action | Date | | | | + +--------+ +-------+------+------+ | heparin 100 units/mL flush | Given | 10/15/20 | 500 | | | | injection 500 Units 500 Units (5 | | 19 9:05 | Units | | | | mL), Intracatheter, PRN, for | | AM PST | | | | | CENTRAL line care., Starting Teresa | | | | | | | 10/15/19 at 0904 | | | | | | + +--------+ +-------+------+------+ +---+---+ | | | +---+---+ + +-------+ +--------+---+---+ | sodium chloride 0.9% flush 10 | Given | 10/15/20 | 10 mLs | | | | mL 10 mL, Intracatheter, PRN, | | 19 9:05 | | | | | Line Care, Starting [facility] 10/15/19 | | AM PST | | | | | at 0904 | | | | | | + +-------+ +--------+---+---+ +---+---+ | | | +---+---+ documented in this encounter"
--- OUTSIDE RECORDS SUMMARY | ~2019-11-22 | XMS | Encounter Summary ---
Demographics + + + | Address | [address] | | | [place] [address] | + + + | Home Phone | | + + + | Preferred Language | Unknown | + + + | Marital Status | | + + + | Restorationist Affiliation | Unknown | + + + [...] | | | | | [place] [address] | | + + + + + | Emory Larios | ECON | Unknown | | + + + + + Care Team Providers + +------+ + | Care Break Up Worker Name | Role | Phone | + +------+ + PCP | Unavailable | + +------+ + Encounter Details +--------+ + + + + | Date | Type | Department | Care Team | Description | +--------+ + + + + | 06/11/ | Orders Only | [facility] | Yancy Clifford MD | | | 2019 | | [address] | [address] | | | | | [place] | [place] | | | | | [address] | [address] | | | | | [phone] | | | +--------+ + + + [...] [place] | | | | | | [id number] | | | | | | | | +--------+ + + + + | 11/26/ | Office | Oncology | Yancy Clifford MD | | | 2018 | Visit | | [address] | | | | | | [place] | | | | | | [phone] | | | | | | | | | | | | Jennyfer Calvert | | | | | | CIERRA Lou [address] | | | | | [address] | | | | | | [place] [address] | | | | | | [phone] | | | | | | | | +--------+ + + + + | 11/26/ | Appointment | Infusion Therapy | Yancy Clifford MD | | | 2018 | | | [address] | | | | | | [place] | | | | | | [address] | | | | | | | | +--------+ + + + + | 12/17/ | Appointment | Infusion Therapy | Yancy Clifford MD | | | 2019 | | | [address] | | | | | | [place] | | | | | | [address] | | | | | | | | +--------+ + + + + | 12/17/ | Office | Oncology | Yancy Clifford MD | | | 2019 | Visit | | [address] | | | | | | [place] | | | | | | [address] | | | | | | | | +--------+ + + + + | 12/17/ | Appointment | Infusion Therapy | Yancy Clifford MD | | | 2020 | | | [address] | | | | | | [place] | | | | | | [address] | | | | | | | | +--------+ + + + + documented as of this encounter Procedures + +--------+ + + + | Procedure Name | Priori | Date/Time | Associated Diagnosis | Comments | | | ty | | | | + +--------+ + + + | EXTERNAL LAB: CBC | Routin | 06/11/2019 | | Results for this | | | e | 1:33 PM | | procedure are in the | | | | PDT | | results section. | + +--------+ + + + | CA 125, QUANT | Routin | 06/11/2019 | | Results for this | | | e | 1:33 PM | | procedure are in the | | | | PDT | | results section. | + +--------+ + + + | COMPREHENSIVE | Routin | 06/11/2019 | | Results for this | | METABOLIC PANEL | e | 1:33 PM | | procedure are in the | | | | PDT | | results section. | + +--------+ + + + documented in this encounter Results External Lab: CBC (06/11/2019 1:33 PM PDT) + + + + + + | Component | Value | Ref Range | Performed | Pathologist | | | | | At | Signature | + + + + + + | WBC | 6.46 | 3.80 - 11.00 | EXTERNAL | | | | | 10*3/uL | LAB | | + + + + + + | RED CELL | 4.10 | 3.70 - 5.10 | EXTERNAL | | | COUNT | | 10*6/uL | LAB | | + + + + + + | Hgb | 13.9 | 11.3 - 15.5 | EXTERNAL | | | | | g/dL | LAB | | + + + + + + | Hematocrit, | 40.9 | 34.0 - 46.0 % | EXTERNAL | | | POC | | | LAB | | + + + + + + | MCV | 99.7 | 80.0 - 100.0 fL | EXTERNAL | | | | | | LAB | | + + + + + + | MCH | 33.8 | 27.0 - 34.0 pg | EXTERNAL | | | | | | LAB | | + + + + + + | MCHC | 33.9 | 32.0 - 35.5 | EXTERNAL | | | | | g/dL | LAB | | + + + + + + | RDW-CV | 77.0 (H) | 37 - 53 fL | EXTERNAL | | | | | | LAB | | + + + + + + | Platelet | 242 | 150 - 400 | EXTERNAL | | | Count | | 10*3/uL | LAB | | | Plasma | | | | | + + + + + + | MPV | 8.1 | fL | EXTERNAL | | | | | | LAB | | + + + + + + | Differentia | AUTOMATED | | EXTERNAL | | | l Type | | | LAB | | + + + + + + | % Segmented | 56.09 | % | EXTERNAL | | | | | | LAB | | | Neutrophils | | | | | + + + + + + | % | 32.67 | % | EXTERNAL | | | Lymphocytes | | | LAB | | + + + + + + | % Monocytes | 8.82 | % | EXTERNAL | | | | | | LAB | | + + + + + + | % | 0.94 | % | EXTERNAL | | | Eosinophils | | | LAB | | + + + + + + | % Basophils | 1.48 | % | EXTERNAL | | | | | | LAB | | + + + + + + | Absolute | 3.62 | 1.90 - 7.40 | EXTERNAL | | | Segmented | | 10*3/uL | LAB | | | Neutrophils | | | | | + + + + + + | Absolute | 2.11 | 1.00 - 3.90 | EXTERNAL | | | Lymphocytes | | 10*3/uL | LAB | | + + + + + + | Absolute | 0.57 | 0.00 - 0.80 | EXTERNAL | | | Monocytes | | 10*3/uL | LAB | | + + + + + + | Absolute | 0.06 | 0.00 - 0.50 | EXTERNAL | | | Eosinophils | | 10*3/uL | LAB | | + + + + + + | Absolute | 0.10 | 0.00 - 0.10 | EXTERNAL | [...] + +---------+ + + CA 125, Quant (06/11/2019 1:33 PM PDT) + + + + + + | Component | Value | Ref Range | Performed | Pathologist | | | | | At | Signature | + + + + + + | CA-125 | 17.8Comment: [facility] | 0 - 35 U/mL | EXTERNAL | | | | (FORMER[facility]) [facility] | | LAB | | | [...] + +---------+ + + Comprehensive Metabolic Panel (06/11/2019 1:33 PM PDT) + + + + + [...] | 4.3 | 3.5 - 4.9 | EXTERNAL | | | | | mmol/L | LAB | | + + + + + + | Cl | 102 | 99 - 109 mmol/L | EXTERNAL | | | | | | LAB | | + + + + + + | CO2 | 28 | 23 - 32 mmol/L | EXTERNAL | | | | | | LAB | | + + + + + + | Anion Gap | 13 | 5 - 20 mmol/L | EXTERNAL | | | | | | LAB | | + + + + + + | Glucose, | 162 (H) | 65 - 99 mg/dL | EXTERNAL | | | Fasting | | | LAB | | + + + + + + | BUN | 12 | 8 - 25 mg/dL | EXTERNAL | | | | | | LAB | | + + + + + + | Creatinine | 0.73 | 0.50 - 1.00 | EXTERNAL | | | | | mg/dL | LAB | | + + + + + + | BUN/Creatin | 16 | | EXTERNAL | | | ine Ratio | | | LAB | | + + + + + + | Calcium | 9.4 | 8.5 - 10.5 | EXTERNAL | | | | | mg/dL | LAB | | + + + + + + | Protein, | 7.4 | 6.3 - 8.2 g/dL | EXTERNAL | | | Total | | | LAB | | + + + + + + | Albumin | 4.0 | 3.3 - 4.8 g/dL | EXTERNAL | | | | | | LAB | | + + + + + + | Globulin | 3.4 | 1.3 - 4.9 g/dL | EXTERNAL | | | | | | LAB | | + + + + + + | A/G Ratio | 1.2 | 1.0 - 2.4 | EXTERNAL | | | | | | LAB | | + + + + + + | Bilirubin | 0.4 | 0.1 - 1.5 mg/dL | EXTERNAL | | | Total | | | LAB | | + + + + + + | ALP, | 67 | 35 - 115 U/L | EXTERNAL | | | External | | | LAB | | + + + + + + | AST | 13 | 10 - 45 U/L | EXTERNAL | | | | | | LAB | | + + + + + + | ALT | 12 | 10 - 65 U/L | EXTERNAL [...]
--- OUTSIDE RECORDS SUMMARY | ~2019-11-22 | XMS | Encounter Summary ---
Demographics + + + | Address | [address] | | | [place] [address] | + + + | Home Phone | | + + + | Preferred Language | Unknown | + + + | Marital Status | | + + + | Hoahaoism Affiliation | Unknown | + + + | Race | Unknown | + + + | Ethnic Group | Unknown | + + + Author + + + | Author | [facility] | | | and [place] | + + + | Organization | [facility] | | [...] | | | | [place] [address] | | + + + + + | Emory Larios | ECON | Unknown | | + + + + + Care Team Providers + +------+ + | Care Box Nailer Name | Role | Phone | + [...] | | | Ascites, | [place], | [place] [address] | | | | | malignant | [place] [address] | Phone: | | | | | Procedures | Phone: | [phone] | | | | | [place] | [phone] | Fax: | | | | | BEVACIZUMAB | Fax: | [phone] | | | | | INJECTION, | [phone] | | | | | | 10 [...] | +--------+ + + + + | 07/23/ | Hospital | [facility] | Yancy Clifford MD | 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 BEVACIZUMAB (be marycarmen rodriguez) is a monoclonal antibody. It is used to treat many types of cancer. How should I use this medicine? This medicine is for infusion into a vein. It is given by a health customer care assistant in a h ospital or clinic setting. Talk to your wildlife science professor regarding the use of this medicine in children. Special care may be needed. What side effects may I notice from receiving this medicine? Side effects that you should report to your doctor or health customer care assistant as soon as p ossible: allergic reactions [...] attention (report to your doctor or health customer care assistant if they continue or are bothersome): back pain changes in taste decreased appetite dry skin nausea tiredness What may interact with this medicine? Interactions are not expected. What if I miss a dose? It is important not to miss your dose. Call your doctor or health customer care assistant if you are unable to keep an [...] should talk to your doctor or health customer care assistant if you are concerned about your fertility. [...] + +---------+ + + | fluticasone | Inhale 1 puff into | | 0 | 03/26/20 | | | (FLOVENT HFA) 220 | the lungs 2 (two) | | | 19 | 9 | | mcg/puff inhaler | times daily. Rinse | | | | | | | mouth after use | | | | | + + [...] as of this encounter Progress Notes Yumiko Crokcer RN - 07/23/2019 11:19 AM PDTPatient here for C3D1 Avastin. Patient was se en by Dr Clifford prior and cleared for treatment. Labs reviewed Urine protein 100, Protein crea tinine Ratio ordered, Per Dr Clifford Ok to proceed without the results. Pt orders/protocol verified. Height, Weight, and BSA checked. Doses verified with second RN Bhakti prior to releasing orders to pharmacy. Pt tolerated chemotherapy without any issues. Updated schedule and copies of most recent la b results provided to pt. Pt discharged to home in stable condition. Encouraged to call with questions or concerns. Aug 13 08/13/2019 0845 - IVT LAB DRAW with [facility] LAB DRAW in [facility] IN[facility] 08/13/2019 0945 - Office Visit Extended with CIERRA Hartley in [facility] HEMATOLOGY AND ONCOLOGY 08/13/2019 1015 - Onc Infusion with [facility] 04 in [facility] HEMATOLOGY AND ONCOLOGY INFUSIONS 08/13/2019 1230 - Office Visit Regular appointment starts at 1240 with Scott Boswell MD in [facility] PULMONOLOGY 12:1 3 PM PDTdocumented in this encounter Plan of Treatment +--------+ [...] [place] | | | | | | [address] | | | | | | | | +--------+ + + + + | 11/26/ | Office | Oncology | Yancy Clifford MD | | | 2018 | Visit | | [address] | | | | | | [place] | | | | | | [address] | | | | | | | | | | | | Nehal Jennyfer | | | | | | Carmine, FILM S[employer]ER [address] | | | | | | [place] [address] | | | | | | [phone] | | | | | | | | +--------+ + + + + | 11/26/ | Appointment | Infusion Therapy | Yancy Clifford MD | | | 2018 | | | [address] | | | | | | [place] | | | | | | [address] | | | | | | | | +--------+ + + + + | 12/17/ | Appointment | Infusion Therapy | Yancy Clifford MD | | | 2019 | | | [address] | | | | | | [place] | | | | | | [address] | | | | | | | | +--------+ + + + + | 12/17/ | Office | Oncology | Yancy Clifford MD | | | 2019 | Visit | | [address] | | | | | | [place] | | | | | | [address] | | | | | | | | +--------+ + + + + | 12/17/ | Appointment | Infusion Therapy | Yancy Clifford MD | | | 2019 | | | [address] | | | | | | [place] | | | | | | [address] | | | | | | | [...] (AVASTIN) 1,300 mg | New Bag | 07/23/20 | 1,300 mg | 200 | | | in sodium chloride 0.9% 100 mL | | 19 11:09 | | mL/hr | | | infusion 1,300 mg (rounded from | | AM PDT | | | | | 1,282.5 mg = 15 mg/kg | | | | | | | 85.5 kg Treatment plan recorded | | | | | | | weight), Intravenous, Administer | | | | | | | over 30 Minutes, ONCE, [facility] | | | | | | | 07/23/19 at 1100, For 1 dose | | | | | | + +---------+ + +-------+------+ +---+---+ | | | +---+---+ + +-------+ +-------+---+---+ | heparin 100 units/mL flush | Given | 07/23/20 | 500 | | | | injection 500 Units 500 Units (5 | | 19 11:54 | Units | | | | mL), Intracatheter, PRN, Line | | AM PDT | | | | | Care, Starting [facility] 07/23/19 at | | | | | | | 1042 | | | | | | + +-------+ +-------+---+---+ +---+---+ | | | +---+---+ + +---------+ +---------+ +---+ | sodium chloride 0.9% (NS) bolus | New Bag | 07/23/20 | 250 mLs | 30 mL/hr | | | 250 mL 250 mL, Intravenous, | | 19 10:54 | | | | | PRN, Flush before and after IV | | AM PDT | | | | | medication(s) and as needed with | | | | | | | NS, Starting [facility] 07/23/19 at 1042 | | | | | | + +---------+ +---------+ +---+ +---+---+ | | | +---+---+ documented in this encounter"
--- OUTSIDE RECORDS SUMMARY | ~2019-11-22 | XMS | Clinical Summary ---
Demographics + + + | Address | [address] [facility] [address] | | | [place] [address] | + + + | Home Phone | | + + + | Preferred Language | Unknown | + + + | Marital Status | | + + + | Mosque Affiliation | Unknown | + + + | Race | Unknown | + + + | Ethnic Group | Unknown | + + + Author + + + | Author | [facility] | | | and [place] | + + + | Organization | [facility] | | | and [place] | + + + | Address | Unknown | + + + | Phone | Unavailable | + + + Support + + + + + | Name | Relationship | Address | Phone | + + + + + | Jared Lopez | ECON | [address] | | | | | [place] [address] | | + + + + + | Emory Larios | ECON | Unknown | | + + + + + Care Team Providers + +------+ + | Care Retort Or Condenser Press Operator Name | Role | Phone | + +------+ + | Shannan Deng | PCP | | + +------+ + Allergies + + + + + + | Active Allergy | Reactions | Severity | Noted | Comments | | | | | Date | | + + + + + + | Codeine | Nausea And Vomiting | Medium | 09/29/20 | | | | | | 15 | | + + + + + + Medications + + + +---------+------+------+-------+ | Medication | Sig | Dispensed | Refills | Star | End | Statu | | | | | | t | Date | s | | | | | | Date | | | + + + +---------+------+------+-------+ | albuterol | Inhale 2 puffs into | | 0 | 10/2 | | Activ | | (PROVENTIL HFA) 90 | the lungs every 4 | | | / | | e | | mcg/puff inhaler | (four) hours as | | | 15 | | | | | needed for Wheezing. | | | | | | + + + +---------+------+------+-------+ | fluticasone | 1 spray by Nasal | | 0 | 10/2 | | Activ | | (FLONASE) 50 | route. | | | 7/20 | | e | | mcg/nasal spray | | | | 16 | | | + + + +---------+------+------+-------+ | ondansetron | Take 8 mg by mouth | | 0 | 06/1 | | Activ | | (ZOFRAN) 8 MG tablet | every 8 (eight) | | | 3/20 | | e | | | hours as needed for | | | 18 | | | | | Nausea. | | | | | | + + + +---------+------+------+-------+ | prochlorperazine | Take 1 tablet by | 30 | 3 | 02/1 | | Activ | | 10 mg tablet | mouth every 6 (six) | tablet | | 4/20 | | e | | | hours as needed. | | | 19 | | | + + + +---------+------+------+-------+ | loratadine | Take 10 mg by mouth | | 0 | 05/1 | | Activ | | (CLARITIN) 10 mg | daily. | | | 620 | | e | | tablet | | | | 19 | | | + + + +---------+------+------+-------+ | polyethylene | Take 17 g by mouth | | 0 | 06/1 | | Activ | | glycol (MIRALAX) | daily. | | | 20 | | e | | packet | | | | 19 | | | + + + +---------+------+------+-------+ | lovastatin | Take 20 mg by mouth | | 0 | | | Activ | | (MEVACOR) 20 mg | nightly. | | | | | e | | tablet | | | | | | | + + + +---------+------+------+-------+ | lactulose 10 g/15 | Take 15 mLs by mouth | 240 mL | 3 | 10/0 | | Activ | | mL solution | every 2 hours as | | | 3/20 | | e | | | needed. | | | 19 | | | + + + +---------+------+------+-------+ Active Problems + + + | Problem | Noted Date | + + + | Pancytopenia | 05/13/2019 | + + + | Epistaxis | 05/13/2019 | + + + | Coagulopathy | 05/13/2019 | + + + | Tobacco use disorder | 05/13/2019 | + + + | Acute cystitis without hematuria | 05/13/2019 | + + + | H/O ovarian cancer | 05/03/2019 | + + + + + | Overview: Recurrent - 2016 and 2019 - S/P hys and | | chemotherapy | + + + + + | Malignant neoplasm of left ovary | 05/14/2018 | + + + + + | Cancer Staging: Clinical: FIGO Stage JOVAN - Unsigned | | Pathologic: FIGO Stage JOVAN - Signed by Yancy Clifford MD on 07/24/2019 | + + + + + | Chronic deep vein thrombosis (DVT) of right upper extremity | 05/14/2018 | + + + | Hyperlipidemia | 05/22/2017 | + + + | Family history of colon cancer | 05/01/2017 | + + + | Acute thrombosis of internal jugular vein | 05/01/2017 | + + + | Ascites, malignant | 04/12/2017 | + + + | Pleural effusion, malignant | 04/12/2017 | + + + | Degeneration of lumbar intervertebral disc | 11/11/2015 | + + + | Spinal stenosis of lumbar region | 05/20/2015 | + + + Encounters +--------+ + + + + | Date | Type | Specialty | Care Team | Description | +--------+ + + + + | 11/05/ | Hospital | Infusion Therapy | Yancy Clifford MD | Malignant neoplasm | | 2019 | Encounter | | Jennyfer Carcamo, | of left ovary (HCC) | | | | | RN | (Primary Dx); | | | | | | Ascites, malignant | +--------+ + + + + | 11/05/ | Office | Oncology | Yancy Clifford MD | Malignant neoplasm | | 2018 | Visit | | | of left ovary (HCC) | | | | | | (Primary Dx); | | | | | | 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 | | | | | | (HCC); Encounter for | | | | | | antineoplastic | | | | | | chemotherapy and | | | | | | immunotherapy | +--------+ + + + + | 11/05/ | Hospital | Infusion Therapy | Yancy Clifford MD | Malignant neoplasm | | 2018 | Encounter | | Sherrill Javed RN | of left ovary (HCC) | | | | | | (Primary Dx) | +--------+ + + + + | 11/05/ | Telephone | Oncology | Yancy Clifford MD | LABS (add on) | | 2019 | | | | | +--------+ + + + + | 11/05/ | Orders Only | | Lona Gutierrez, | Malignant neoplasm | | 2019 | | | Label Tacker | of left ovary (HCC); | | | | | | 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 | | | | | | (HCC); Pleural | | | | | | effusion, malignant; | | | | | | Encounter for | | | | | | antineoplastic | | | | | | chemotherapy and | | | | | | immunotherapy | +--------+ + + + + | 10/16/ | Hospital | Radiology | Jennyfer Calvert | Malignant neoplasm | | 2018 | Encounter | | CIERRA Lou | of left ovary (HCC) | +--------+ + + + + | 10/15/ | Office | Oncology | Yancy Clifford MD | Malignant neoplasm | | 2018 | Visit | | Jennyfer Calvert | of left ovary (HCC) | | | | | CIERRA Lou | (Primary Dx) | +--------+ + + + + | 10/15/ | Hospital | Infusion Therapy | Yancy Clifford MD | Malignant neoplasm | | 2019 | Encounter | | Ekta Kamara RN | of left ovary (HCC) | | | | | | (Primary Dx); | | | | | | Ascites, malignant | +--------+ + + + + | 10/15/ | Hospital | Infusion Therapy | Yancy Clifford MD | Malignant neoplasm | | 2018 | Encounter | | Dick Coreas RN | of left ovary (HCC) | | | | | | (Primary Dx); | | | | | | 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 | | | | | | (HCC); Pleural | | | | | | effusion, malignant; | | | | | | Encounter for | | | | | | antineoplastic | | | | | | chemotherapy and | | | | | | immunotherapy | +--------+ + + + + | 10/15/ | Orders Only | | Juli Castillo | Malignant neoplasm | | 2019 | | | M, Label Tacker | of left ovary (HCC); | | | | | | 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 | | | | | | (HCC); Pleural | | | | | | effusion, malignant; | | | | | | Encounter for | | | | | | antineoplastic | | | | | | chemotherapy and | | | | | | immunotherapy | +--------+ + + + + | 09/24/ | Hospital | Infusion Therapy | Yancy Clifford MD | Malignant neoplasm | | 2018 | Encounter | | | of left ovary (HCC) | | | | | | (Primary Dx); | | | | | | Ascites, malignant | +--------+ + + + + | 09/24/ | Office | Oncology | Yancy Clifford MD | Malignant neoplasm | | 2018 | Visit | | | of left ovary (HCC) | | | | | | (Primary Dx); | | | | | | 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 | | | | | | (HCC); Pleural | | | | | | effusion, malignant; | | | | | | Encounter for | | | | | | antineoplastic | | | | | | chemotherapy and | | | | | | immunotherapy | +--------+ + + + + | 09/24/ | Hospital | Infusion Therapy | Yancy Clifford MD | Malignant neoplasm | | 2018 | Encounter | | Sushma Marquis | of left ovary (HCC) | | | | | A, RN | (Primary Dx) | +--------+ + + + + | 09/03/ | Hospital | Infusion Therapy | Yancy Clifford MD | Malignant neoplasm | | 2018 | Encounter | | Bhakti Godfrey RN | of left ovary (HCC) | | | | | | (Primary Dx); | | | | | | Ascites, malignant | +--------+ + + + + | 09/03/ | Office | Oncology | Yancy Clifford MD | Malignant neoplasm | | 2018 | Visit | | Jennyfer Calvert | of left ovary (HCC) | | | | | CIERRA Lou | (Primary Dx) | +--------+ + + + + | 09/03/ | Hospital | Infusion Therapy | Yancy Clifford MD | Malignant neoplasm | | 2018 | Encounter | | | of left ovary (HCC) | | | | | | (Primary Dx) | +--------+ + + + + from Last 3 Months Immunizations + + + + | Name | Administration Dates | Next Due | + + + + | INFLUENZA PF 4Y OR | 09/19/2018 | | | >,QUAD DERIVED FROM | | | | TISS-CULT | | | + + + + | INFLUENZA PF | 08/22/2019 | | | QUAD(PED/ADOL/ADULT) | | | | ,PSKT or VIAL | | | + + + + | INFLUENZA TRIV | 09/11/2017, 09/19/2015, 10/15/2014 | | | W/PRES(PED/ADOL/ADUL | | | | T),MULTIDOSE | | | + + + + | PNEUMOCOCCAL | 10/15/2014 | | | POLYSACCHARIDE | | | | 23-VALENT (PPSV23) | | | + + + + | TDAP, (ADOL/ADULT) | 09/19/2015 | | + + + + Family History + + +------+ + | Medical History | Relation | Name | Comments | + + +------+ + | Cancer | Father | | | + + +------+ + | Colon cancer | Father | | | + + +------+ + | Heart attack | Father | | | + + +------+ + | Cancer | Mother | | | + + +------+ + | Lung cancer | Mother | | | + + +------+ + | Cancer | Other | | | + + +------+ + + +------+--------+ + | Relation | Name | Status | Comments | + +------+--------+ + | Father | | Alive | | + +------+--------+ + | Mother | | Alive | | + +------+--------+ + | Other | | | | + +------+--------+ + Social History + +-------+ +--------+------+ | [...] recent travel history available. | + + Last Filed Vital Signs + + + + + | Vital Sign | Reading | Time Taken | Comments | + + + + + | Blood Pressure | 120/82 | 11/05/2019 1:49 PM | | | | | PST | | + + + + + | Pulse | 96 | 11/05/2019 1:49 PM | | | | | PST | | + + + + + | Temperature | 36.6 C (97.8 F) | 11/05/2019 1:49 PM | | | | | PST | | + + + + + | Respiratory Rate | 14 | 11/05/2019 1:49 PM | | | | | PST | | + + + + + | Oxygen Saturation | 98% | 11/05/2019 1:49 PM | | | | | PST | | + + + + + | Inhaled Oxygen | - | - | | | Concentration | | | | + + + + + | Weight | 84.9 kg (187 lb 1.3 | 11/05/2019 1:49 PM | | | | oz) | PST | | + + + + + | Height | 162.6 cm (5' 4") | 11/05/2019 1:49 PM | | | | | PST | | + + + + + | Body Mass Index | 32.11 | 11/05/2019 1:49 PM | | | | | PST | | + + + + + Plan of Treatment +--------+ + + + + | Date | Type | Specialty | Care Team | Description | +--------+ + + + + | 11/26/ | Appointment | Infusion Therapy | Yancy Clifford MD | | | 2018 | | | [address] | | | | | | [place] | | | | | | [address] | | | | | | | | +--------+ + + + + | 11/26/ | Office | Oncology | Yancy Clifford MD | | | 2018 | Visit | | [address] | | | | | | [place] | | | | | | [address] | | | | | | | | | | | | Jennyfer Calvert | | | | | | [facility] [address] | | | [address] | | | | | | [place] [address] | | | | | | [phone] | | | | | | | | +--------+ + + + + | 11/26/ | Appointment | Infusion Therapy | Yancy Clifford MD | | | 2018 | | | [address] | | | | | | [place] | | | | | | [address] | | | | | | | | +--------+ + + + + | 12/17/ | Appointment | Infusion Therapy | Yancy Clifford MD | | | 2019 | | | [address] | | | | | | [place] | | | | | | [address] | | | | | | | | +--------+ + + + + | 12/17/ | Office | Oncology | Yancy Clifford MD | | | 2019 | Visit | | [address] | | | | | | [place] | | | | | | [address] | | | | | | | | +--------+ + + + + | 12/17/ | Appointment | Infusion Therapy | Yancy Clifford MD | | | 2019 | | | [address] | | | | | | [place] | | | | | | [address] | | | | | | | | +--------+ + + + + + + + + + | Health Maintenance | Due Date | Last Done | Comments | + + + + + | Hepatitis C | | | | | Screening | 9 | | | + + + + + | Cervical Cancer | | | | | Screening (Pap) | 9 | | | + + + + + | Colorectal Cancer | | | | | Screening | 9 | | | | (Colonoscopy) | | | | + + + + + | Vaccine: Zoster (1 | | | | | of 2) | 9 | | | + + + + + | Breast Cancer | | | | | Screening | 4 | | | + + + + + | Vaccine: | | 10/15/2014 | | | Pneumococcal 19-64 | 5 | | | | (2 of 3 - PCV13) | | | | + + + + + | Adult Annual | | | | | Wellness Visit | 9 | | | + + + + + | Vaccine: | | 09/19/2015 | | | Dtap/Tdap/Td (2 - | 5 | | | | Td) | | | | + + + + + | Vaccine: Influenza | Completed | 08/22/2019, 09/19/2018, | | | | | 09/11/2017, Additional history | | | | | exists | | + + + + + Procedures + +--------+ + + + | Procedure Name | Priori | Date/Time | Associated Diagnosis | Comments | | | ty | | | | + +--------+ + + + | CA 125, QUANT | Routin | 11/05/2019 | Malignant neoplasm | Results for this | | | e | 1:17 PM | of left ovary (HCC) | procedure are in the | | | | PST | Peritoneal | results section. | | | | | carcinomatosis (HCC) | | | | | | Pleural effusion, | | | | | | malignant Encounter | | | | | | for antineoplastic | | | | | | chemotherapy and | | | | | | immunotherapy | | + +--------+ + + + | URINALYSIS, | Routin | 11/05/2019 | | Results for this | | MICROSCOPIC ONLY | e | 1:17 PM | | procedure are in the | | | | PST | | results section. | + +--------+ + + + | PROTEIN, URINE, | Routin | 11/05/2019 | | Results for this | | RANDOM | e | 1:17 PM | | procedure are in the | | | | PST | | results section. | + +--------+ + + + | CREATININE, URINE, | Routin | 11/05/2019 | | Results for this | | RANDOM | e | 1:17 PM | | procedure are in the | | | | PST | | results section. | + +--------+ + + + | URINALYSIS WITH | Routin | 11/05/2019 | | Results for this | | MICROSCOPIC IF | e | 1:17 PM | | procedure are in the | | INDICATED | | PST | | results section. | + +--------+ + + + | PROTEIN/CREATININE | Routin | 11/05/2019 | | Results for this | | RATIO, URINE | e | 1:17 PM | | procedure are in the | | | | PST | | results section. | + +--------+ + + + | CBC WITH | STAT | 11/05/2019 | Malignant neoplasm | Results for this | | DIFFERENTIAL | | 1:17 PM | of left ovary (HCC) | procedure are in the | | | | PST | | results section. | + +--------+ + + + | COMPREHENSIVE | STAT | 11/05/2019 | Malignant neoplasm | Results for this | | METABOLIC PANEL | | 1:17 PM | of left ovary (HCC) | procedure are in the | | | | PST | | results section. | + +--------+ + + + | CT CHEST ABDOMEN | [place] | 10/16/2019 | Malignant neoplasm | Results for this | | PELVIS W CONTRAST | | 2:00 PM | of left ovary (HCC) | procedure are in the | | | | PST | | results section. | + +--------+ + + + | URINALYSIS, | Routin | 10/15/2019 | | Results for this | | MICROSCOPIC ONLY | e | 8:55 AM | | procedure are in the | | | | PST | | results section. | + +--------+ + + + | PROTEIN, URINE, | Routin | 10/15/2019 | | Results for this | | RANDOM | e | 8:55 AM | | procedure are in the | | | | PST | | results section. | + +--------+ + + + | CREATININE, URINE, | Routin | 10/15/2019 | | Results for this | | RANDOM | e | 8:55 AM | | procedure are in the | | | | PST | | results section. | + +--------+ + + + | PROTEIN/CREATININE | Routin | 10/15/2019 | | Results for this | | RATIO, URINE | e | 8:55 AM | | procedure are in the | | | | PST | | results section. | + +--------+ + + + | CBC WITH | STAT | 10/15/2019 | Malignant neoplasm | Results for this | | DIFFERENTIAL | | 8:55 AM | of left ovary (HCC) | procedure are in the | | | | PST | | results section. | + +--------+ + + + | COMPREHENSIVE | STAT | 10/15/2019 | Malignant neoplasm | Results for this | | METABOLIC PANEL | | 8:55 AM | of left ovary (HCC) | procedure are in the | | | | PST | | results section. | + +--------+ + + + | URINALYSIS WITH | Routin | 10/15/2019 | Malignant neoplasm | Results for this | | MICROSCOPIC IF | e | 8:55 AM | of left ovary (HCC) | procedure are in the | | INDICATED | | PST | | results section. | + +--------+ + + + | CA 125, QUANT | Routin | 10/15/2019 | Malignant neoplasm | Results for this | | | e | 8:55 AM | of left ovary (HCC) | procedure are in the | | | | PST | Peritoneal | results section. | | | | | carcinomatosis (HCC) | | | | | | Pleural effusion, | | | | | | malignant Encounter | | | | | | for antineoplastic | | | | | | chemotherapy and | | | | | | immunotherapy | | + +--------+ + + + | URINALYSIS, | Routin | 09/24/2019 | | Results for this | | MICROSCOPIC ONLY | e | 2:03 PM | | procedure are in the | | | | PDT | | results section. | + +--------+ + + + | PROTEIN, URINE, | Routin | 09/24/2019 | | Results for this | | RANDOM | e | 2:03 PM | | procedure are in the | | | | PDT | | results section. | + +--------+ + + + | CREATININE, URINE, | Routin | 09/24/2019 | | Results for this | | RANDOM | e | 2:03 PM | | procedure are in the | | | | PDT | | results section. | + +--------+ + + + | URINALYSIS WITH | Routin | 09/24/2019 | | Results for this | | MICROSCOPIC IF | e | 2:03 PM | | procedure are in the | | INDICATED | | PDT | | results section. | + +--------+ + + + | PROTEIN/CREATININE | Routin | 09/24/2019 | | Results for this | | RATIO, URINE | e | 2:03 PM | | procedure are in the [...] section. | + +--------+ + + + from Last 3 Months Results Urinalysis with Microscopic if Indicated (11/05/2019 1:17 PM PST)Only the most recent of 4 results within the time period is included. + + + + + + | [...] - 1.030 | REFERENCE | | | [place], | | | LAB | | | [...] REFERENCE | | | | Performed at [facility], [address] | | LAB | | | | [address] | | [facility] | | | | [address], [place] | | LABORATORY | | | | [address] | | | | + + + + + + + + | Specimen | + + | | + + + + + + + | Performing | Address | City/State/Zipcode | Phone Number | | Organization | | | | + + + + + | REFERENCE LAB | [address] | [place] [address] | [phone] | | [facility] | [address] | | | | LABORATORY | | | | + + + + + | REFERENCE LAB | [address] | [place] [address] | | | [facility] | Blvd[address] | | | | LABORATORY | | | | + + + + + Urinalysis, Microscopic Only (11/05/2019 1:17 PM PST)Only the most recent of 4 results wit riki the time period is included. + + + + + + | Component | Value | Ref Range | Performed | Pathologist | | | | | At | Signature | + + + + + + | WBC UA | 1-5 | 0 - 5 /hpf | REFERENCE [...] + + + + | SQUAMOUS | 50-100 | /lpf | REFERENCE | | | EPITHELIAL | | | LAB | | | UA | | | [facility] | | | | | | LABORATORY | | + + + + + + | BACTERIA UA | 2+ (A) | NONE | REFERENCE | | | | | | LAB | | | | | | [facility] | | | | | | LABORATORY | | + + + + + + | MUCUS UA | 2+ | | REFERENCE | | | | | | LAB | | | | | | [facility] | | | | | | LABORATORY | | + + + + + + | CASTS | 1-5Comment: | /lpf | REFERENCE | | | | HYALINE0-2FINE | | LAB | | | | GRANULARTesting | | [facility] | | | | Performed at [facility], [address] | | LABORATORY | | | | [address] | | | | | | [address], [place] | | | | | | [address] | | | | + + + + + + + + | Specimen | + + | | + + + + + + + | Performing | Address | City/State/Zipcode | Phone Number | | Organization | | | | + + + + + | REFERENCE LAB | [address] | [place] [address] | [phone] | | [facility] | Blvd[address] | | | | LABORATORY | | | | + + + + + | REFERENCE LAB | [address] [facility] | [place] [address] | | | [facility] | Blvd[address] | | | | LABORATORY | | | | + + + + + Protein/Creatinine Ratio, Urine (11/05/2019 1:17 PM PST)Only the most recent of 4 results within the time period is included. + + + + + + | Component | Value | Ref Range | Performed | Pathologist | | | | | At | Signature | + + + + + + | PRO/CREA | 0.561Comment: Testing | | REFERENCE | | | RATIO,URINE | performed at [facility];[address] | | LAB | | | | [address] | | [facility] | | | | [address];[place] [address] | | LABORATORY | | + + + + + + + + | Specimen | + + | | + + + + + + + | Performing | Address | City/State/Zipcode | Phone Number | | Organization | | | | + + + + + | REFERENCE LAB | [address] [facility] | [place] [address] | [phone] | | [facility] | Blvd[address] | | | | LABORATORY | | | | + + + + + | REFERENCE LAB | [address] [facility] | [place] [address] | | | [facility] | Blvd[address] | | | | LABORATORY | | | | + + + + + Protein, Urine, Random (11/05/2019 1:17 PM PST)Only the most recent of 4 results within e time period is included. + + + + + + | Component | Value | Ref Range | Performed | Pathologist | | | | | At | Signature | + + + + + + | Protein, | 88Comment: NO NORMAL | mg/dL | REFERENCE | | | Urine | RANGE ESTABLISHEDTesting | | LAB | | | | performed at [facility];[address] | | [facility] | | | | [facility] | | LABORATORY | | | | Blvd;[place] [address] | | | | | | | | | | + + + + + + + + | Specimen | + + | | + + + + + + + | Performing | Address | City/State/Zipcode | Phone Number | | Organization | | | | + + + + + | REFERENCE LAB | [address] [place] [address] | [place] [address] | [phone] | | [facility] | Blvd[address] | | | | LABORATORY | | | | + + + + + | REFERENCE LAB | [address] [place] [address] | [place] [address] | | | [facility] | Blvd[address] | | | | LABORATORY | | | | + + + + + Creatinine, Urine, Random (11/05/2019 1:17 PM PST)Only the most recent of 4 results within the time period is included. + + + + + + | Component | Value | Ref Range | Performed | Pathologist | | | | | At | Signature | + + + + + + | Creatinine, | 157.0Comment: NO NORMAL | mg/dL | REFERENCE | | | random | RANGE ESTABLISHEDTesting | | LAB | | | urine | performed at [facility];[address] | | [facility] | | | | [address] | | LABORATORY | | | | Bl[address];[place], [place] [address] | | | | | | | | | | + + + + + + + + | Specimen | + + | | + + + + + + + | Performing | Address | City/State/Zipcode | Phone Number | | Organization | | | | + + + + + | REFERENCE LAB | [address] [facility] | [place] [address] | [phone] | | [facility] | Blvd[address] | | | | LABORATORY | | | | + + + + + | REFERENCE LAB | [address] [place] [address] | [place] [address] | | | [facility] | Blvd[address] | | | | LABORATORY | | | | + + + + + CBC with Differential (11/05/2019 1:17 PM PST)Only the most recent of 4 results within the time period is included. + + + + + + | [...] | | LABORATORY | | | | [address] | | | | + + + + + + + + | Specimen | + + | Blood | + + + + + + + | Performing | Address | City/State/Zipcode | Phone Number | | Organization | | | | + + + + + | REFERENCE LAB | [address] [facility] | [place] [address] | [phone] | | [facility] | Blvd[address] | | | | LABORATORY | | | | + + + + + | REFERENCE LAB | [address] [place] [address] | [place] [address] | | | [facility] | Blvd[address] | | | | LABORATORY | | | | + + + + + CA 125, Quant (11/05/2019 1:17 PM PST)Only the most recent of 2 results within the time jimmie carlisle is included. + + + + + + | Component | Value | Ref Range | Performed | Pathologist | | | | | At | Signature | + + + + + + | CA125 | 44.6 (H)Comment: THE | 0 - 35 U/mL | REFERENCE | | | | [facility] ([facility]) | | LAB | | | | [facility] | | [facility] | | | | IMMUNOASSAY METHOD IS | | LABORATORY | | | | USED.RESULTS OBTAINED | | | | | | WITH DIFFERENT ASSAY | | | | | | METHODS OR KITS CANNOT | | | | | | BE | | | | | | USEDINTERCHANGEABLY.Test | | | | | | ing performed at | | | | | | [facility];[address] [place] [address] | | | | | | Blvd;[place] [address] | | | | | | | | | | + + + + + + + + | Specimen | + + | Blood | + + + + + + + | Performing | Address | City/State/Zipcode | Phone Number | | Organization | | | | + + + + + | REFERENCE LAB | [address] [facility] | [place] [address] | [phone] | | [facility] | Blvd. | | | | LABORATORY | | | | + + + + + | REFERENCE [facility] | [address] | [place] [address] | | | [facility] | Blvd. | | | | LABORATORY | | | | + + + + + Comprehensive Metabolic Panel (11/05/2019 1:17 PM PST)Only the most recent of 4 results wi thin the time period is included. + + + + + + | [...] | | | | | performed at [facility];[address] | | | | | | [facility] | | | | | | [facility];[place] [address] | | | | | | | | | | + + + + + + + + | Specimen | + + | Blood | + + + + + + + | Performing | Address | City/State/Zipcode | Phone Number | | Organization | | | | + + + + + | REFERENCE LAB | [address] [place] [address] | [place] [address] | [phone] | | [facility] | Blvd. | | | | LABORATORY | | | | + + + + + | REFER[facility] | [address] [place], [place] [address] | [place] [address] | | | [facility] | Blvd. | | | | LABORATORY | | | | + + + + + CT Chest Abdomen Pelvis w Contrast (10/16/2019 2:00 PM PST) + + | Specimen | + + | | + + + + + | Impressions | Performed At | + + + | Summary of Target Lesions: 1. Left periaortic node, image 160, 1.1 | [facility] | | cm, previously 0.5 cm 2. Left external iliac node, image 214, 1.6 cm, | | | previously 0.8 cm Comments: Recurrent disease and low | | | retroperitoneal and bilateral pelvic lymph nodes. Signed | | | by: Catracho Chinchilla, Tom Sign Date/Time: 10/16/2019 2:47 PM | | + + + + + + | Narrative | Performed At | + + + | CT CHEST ABDOMEN AND PELVIS WITH CONTRAST CLINICAL | [facility] | | INFORMATION: Ovarian cancer, increase in CA125, evaluate for disease | | | progression COMPARISON: CT CHEST ABDOMEN PELVIS W | | | CONTRAST (06/05/2019); CT CHEST ABDOMEN PELVIS W CONTRAST (01/01/2019); | | | PROCEDURE: Axial images through the chest, abdomen and pelvis | | | after the administration of 100ml omnipaque 350 intravenous contrast. | | | Multiplanar reconstructions. At least one of the following CT | | | dose optimization techniques were used: Automated exposure control; | | | Adjustment of mA and/or kV according to patient size; Use of | | | iterative reconstruction technique. FINDINGS: CHEST Lungs, | | | Pleura and Airways: No significant pulmonary abnormality. No airway | | | narrowing or obstruction. No pleural effusion or pneumothorax. | | | Mediastinum: No significant pericardial, great vessel or esophageal | | | abnormality. No mediastinal mass. Lymph Nodes: No adenopathy. | | | ABDOMEN Liver and Biliary: No gallbladder or biliary abnormality. No | | | significant liver abnormality. Pancreas, Spleen and Adrenals: No | | | pancreatic mass. No splenomegaly or splenic mass. No significant | | | adrenal abnormality. Kidneys: No hydronephrosis, calculus or solid | | | renal mass. ABDOMEN AND PELVIS Bowel: No small bowel or colonic | | | dilation, inflammation or mass. Vessels: No significant abnormality | | | in the aorta, its proximal branches or the iliac arteries. No | | | significant abnormality in the portal veins, mesenteric veins or | | | systemic veins. Lymph Nodes: Recurrent adenopathy in the pelvis and | | | retroperitoneum present with mildly enlarged bilateral external iliac | | | nodes as well as low left periaortic adenopathy. Measurements | | | below. Left periaortic node, image 160, 1.1 cm, previously 0.5 cm | | | Left external iliac node, image 214, 1.6 cm, previously 0.8 cm | | | Peritoneum and Retroperitoneum: No generalized ascites or peritoneal | | | nodules present. Left pelvic lymphocele again demonstrated. | | | PELVIS Genitourinary: Urinary bladder decompressed. No free fluid | | | in the pelvis. BODY WALL Soft Tissues: Midline ventral hernia | | | again demonstrated containing a loop of nonobstructed small bowel. | | | Previously noted nodularity along the inferior margin of the | | | midline incision has been stable over each exam and almost certainly | | | represents an area of scarring. Bones: No acute fracture or vertebral | | | end plate destruction. No lytic or blastic lesion. | | + + + + + | Procedure Note | + + | Chi, Rad Results In - 10/16/2019 2:51 PM PST | | CT CHEST ABDOMEN AND PELVIS WITH CONTRAST | | | | CLINICAL INFORMATION: | | Ovarian cancer, increase in CA125, evaluate for disease progression | | | | | | | | | | COMPARISON: | | CT CHEST ABDOMEN PELVIS W CONTRAST (06/05/2019); CT CHEST ABDOMEN PELVIS | | W CONTRAST (01/01/2019); | | | | PROCEDURE: | | Axial images through the chest, abdomen and pelvis after the | | administration of 100ml omnipaque 350 intravenous contrast. Multiplanar | | reconstructions. | | | | At least one of the following CT dose optimization techniques were | | used: Automated exposure control; Adjustment of mA and/or kV according | | to patient size; Use of iterative reconstruction technique. | | | | FINDINGS: | | CHEST | | Lungs, Pleura and Airways: No significant pulmonary abnormality. No | | airway narrowing or obstruction. No pleural effusion or pneumothorax. | | Mediastinum: No significant pericardial, great vessel or esophageal | | abnormality. No mediastinal mass. | | Lymph Nodes: No adenopathy. | | | | ABDOMEN | | Liver and Biliary: No gallbladder or biliary abnormality. No | | significant liver abnormality. | | Pancreas, Spleen and Adrenals: No pancreatic mass. No splenomegaly or | | splenic mass. No significant adrenal abnormality. | | Kidneys: No hydronephrosis, calculus or solid renal mass. | | | | ABDOMEN AND PELVIS | | Bowel: No small bowel or colonic dilation, inflammation or mass. | | Vessels: No significant abnormality in the aorta, its proximal branches | | or the iliac arteries. No significant abnormality in the portal veins, | | mesenteric veins or systemic veins. | | Lymph Nodes: Recurrent adenopathy in the pelvis and retroperitoneum | | present with mildly enlarged bilateral external iliac nodes as well as | | low left periaortic adenopathy. Measurements below. | | | | Left periaortic node, image 160, 1.1 cm, previously 0.5 cm | | Left external iliac node, image 214, 1.6 cm, previously 0.8 cm | | | | Peritoneum and Retroperitoneum: No generalized ascites or peritoneal | | nodules present. Left pelvic lymphocele again demonstrated. | | | | PELVIS | | Genitourinary: Urinary bladder decompressed. No free fluid in the | | pelvis. | | | | BODY WALL | | Soft Tissues: Midline ventral hernia again demonstrated containing a | | loop of nonobstructed small bowel. Previously noted nodularity along | | the inferior margin of the midline incision has been stable over each | | exam and almost certainly represents an area of scarring. | | Bones: No acute fracture or vertebral end plate destruction. No lytic | | or blastic lesion. | | | | IMPRESSION: | | Summary of Target Lesions: | | 1. Left periaortic node, image 160, 1.1 cm, previously 0.5 cm | | 2. Left external iliac node, image 214, 1.6 cm, previously 0.8 cm | | | | Comments: | | Recurrent disease and low retroperitoneal and bilateral pelvic lymph | | nodes. | | | | | | | | Signed by: Catracho Chinchilla Scott | | Sign Date/Time: 10/16/2019 2:47 PM | + + + +---------+ + + | Performing | Address | City/State/Zipcode | Phone Number | | Organization | | | | + +---------+ + + | [facility] | | | | + +---------+ + + from Last 3 Months Insurance + +--------+ +--------+ +---------+--------+ | Payer | Benefi | Subscriber | Effect | Phone | Address | Type | | | t Plan | ID | judi | | | | | | / | | Dates | | | | | | Group | | | | | | + +--------+ +--------+ +---------+--------+ | MEDICARE | MEDICA | [id number] | 05/02/20 | [phone] | | Medica | | | RE | | 17-Pre | 5 | | re | | | PART A | | sent | | | | | | AND B | | | | | | + +--------+ +--------+ +---------+--------+ | COORDINATED CARE | COORDI | [id number] | 04/01/20 | | | Medica | | MEDICAID HMO | NATED | | 17-Pre | | | id | | | CARE | | sent | | | | | | APPLE | | | | | | | | HEALTH | | | | | | | | [place] | | | | | | + +--------+ +--------+ +---------+--------+ | [place] | MEDICA | [id number] | 07/04/20 | [phone] | | Medica | | | ID | | 19-Pre | 2 | | id | | | [place] | | sent | | | | + +--------+ +--------+ +---------+--------+ + +--------+ +--------+ + + | Guarantor Name | Accoun | Relation to | Date | Phone | Billing Address | | | t Type | Patient | of | | | | | | | | | | + +--------+ +--------+ + + | Ramila Lopez | Person | Self | [birth year] | [address] | | | al/Fam | | 1959 | [phone] | [address], | | | ever | | | [address] (Home) | [place] [address] | + +--------+ +--------+ + + | Ramila Lopez | Person | Self | [birth year] | | [address] | | | al/Fam | | 1960 | [phone] | [place] [address], | | | ever | | | 6 (Home) | [place] [address] | + +--------+ +--------+ + + Advance Directives + + + + + | Type | Date Recorded | Patient | Explanation | | | | [employer] | | + + + + + | Power of | | | | | Carburetor Expert | | | | + + + + + | Advance | | | | | Directive | | | | + + + + +
--- OUTSIDE RECORDS SUMMARY | ~2019-11-22 | XMS | Encounter Summary ---
Demographics + + + | Address | [address] | | | [place] [address] | + + + | Home Phone | | + + + | Preferred Language | Unknown | + + + | Marital Status | | + + + | Anabaptism Affiliation | Unknown | + + + | Race | Unknown | + + + | Ethnic Group | Unknown | + + + Author + + + | Author | [facility] | | | and [place] | + + + | Organization | [facility] | | [...] | | | | | [place] [address] | | + + + + + | Emory Larios | ECON | Unknown | | + + + + + Care Team Providers + +------+ + | Care Skin Piler Name | Role | Phone | + +------+ + PCP | Unavailable | + +------+ + Encounter Details +--------+ + + + + | Date | Type | Department | Care Team | Description | +--------+ + + + + | 07/09/ | Abstract | [facility] | Patricia Sanchez, | | | 2018 | | HEMATOLOGY AND | Agricultural Systems Specialist | | | | | ONCOLOGY [address] | | | | | [address] | | | | | | [place] | | | | | | [address] | | | | | | [phone] | | | +--------+ + + + [...] [place] | | | | | | [address] | | | | | | | | +--------+ + + + + | 11/26/ | Office | Oncology | Yancy Clifford MD | | | 2018 | Visit | | [address] | | | | | | [place] | | | | | | [address] | | | | | | | | | | | | Jennyfer Calvert | | | | | | [address] [address] | | | | | | [address] | | | | | | [place] [address] | | | | | | [phone] | | | | | | | | +--------+ + + + + | 11/26/ | Appointment | Infusion Therapy | Yancy Clifford MD | | | 2018 | | | [address] | | | | | | [place] | | | | | | [address] | | | | | | | | +--------+ + + + + | 12/17/ | Appointment | Infusion Therapy | Yancy Clifford MD | | | 2019 | | | [address] | | | | | | [place] | | | | | | [address] | | | | | | | | +--------+ + + + + | 12/17/ | Office | Oncology | Yancy Clifford MD | | | 2019 | Visit | | [address] | | | | | | [place] | | | | | | [address] | | | | | | | | +--------+ + + + + | 12/17/ | Appointment | Infusion Therapy | Yancy Clifford MD | | | 2019 | | | [address] | | | | | | [place] | | | | | | [address] | | | | | | | | +--------+ + + + + documented as of this encounter Visit Diagnoses Not on filedocumented in this encounter"
--- OUTSIDE RECORDS SUMMARY | ~2019-11-22 | XMS | Encounter Summary ---
Demographics + + + | Address | [address] | | | [place] [address] | + + + | Home Phone | | + + + | Preferred Language | Unknown | + + + | Marital Status | | + + + | Anglican Affiliation | Unknown | + + + | Race | Unknown | + + + | Ethnic Group | Unknown | + + + Author + + + | Author | [facility] | | | and [place] | + + + | Organization | [facility] | | | and [...] | | | | [place] [address] | | + + + + + | Emory Larios | ECON | Unknown | | + + + + + Care Team Providers + +------+ + | Care Patch Setter Name | Role | Phone | + +------+ + | Shannan Deng | PCP | | + +------+ + Encounter Details +--------+ + + + + | Date | Type | Department | Care Team | Description | +--------+ + + + + | 09/24/ | Hospital | [facility] | Yancy Clifford MD | 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) | | | | SERVICES [address] | [place] | (Primary Dx) | | | | [address] [place] | [phone] | | | | | [address] [place] | | | | | | [address] | Sushma Marquis | | | | | [phone] | Tiana RN | | +--------+ + [...] 1:44 PM PDTPort accessed for lab draw. internet technology manager nique maintained throughout procedure. Saline locked, left accessed for treatment. Urine s ample obtained. do cumented in this encounter Plan of Treatment +--------+ + + + + | Date | Type | Specialty | Care Team | Description | +--------+ + + + + | 11/26/ | Appointment | Infusion Therapy | Yancy Clifford MD | | | 2018 | | | [address] | | | | | | [place] | | | | | | [address] | | | | | | | | +--------+ + + + + | 11/26/ | Office | Oncology | Yancy Clifford MD | | | 2018 | Visit | | [address] | | | | | | [place] | | | | | | [address] | | | | | | | | | | | | Jennyfer Calvert | | | | | | [address] [address] | | | | | | [address] | | | | | | [place] [address] | | | | | | [phone] | | | | | | | | +--------+ + + + + | 11/26/ | Appointment | Infusion Therapy | Yancy Clifford MD | | | 2018 | | | [address] | | | | | | [place] | | | | | | [address] | | | | | | | | +--------+ + + + + | 12/17/ | Appointment | Infusion Therapy | Yancy Clifford MD | | | 2019 | | | [address] | | | | | | [place] | | | | | | [address] | | | | | | | | +--------+ + + + + | 12/17/ | Office | Oncology | Yancy Clifford MD | | | 2019 | Visit | | [address] | | | | | | [place] | | | | | | [address] | | | | | | | | +--------+ + + + + | 12/17/ | Appointment | Infusion Therapy | Yancy Clifford MD | | | 2019 | | | [address] | | | | | | [place] | | | | | | [address] | | | | | | | [...] [facility] | | | | Blvd;[place] [address] | | LABORATORY | | + + + + + + | K | 4.1Comment: Testing | 3.5 - 4.9 | REFERENCE | | | | performed at [facility];[address] | mmol/L | LAB | | | | [place] | | [facility] | | | | [address];[place] [address] | | LABORATORY | | + + + + + + | Cl | 104Comment: Testing | 99 - 109 mmol/L | REFERENCE | | | | performed at [facility];[address] | | LAB | | | | [place] | | [facility] | | | | [address];[place] [address] | | LABORATORY | | + + + + + + | CO2 | 26Comment: Testing | 23 - 32 mmol/L | REFERENCE | | | | Performed at [facility], [address] | | LAB | | | | [facility] | | [facility] | | | | [address], [place] | | LABORATORY | | | | [address] | | | | + + + + + + | Anion Gap | 10Comment: Testing | 5 - 20 mmol/L | REFERENCE | | | | performed at [facility];[address] | | LAB | | | | [place] | | [facility] | | | | [address];[place] [address] | | LABORATORY | | + + [...] | | | | | | [address], [place], [place] | | | | | | [address] | | | | + + + + + + + + | Specimen | + + | Blood | + + + + + + + | Performing | Address | City/State/Zipcode | Phone Number | | Organization | | | | + + + + + | REFERENCE LAB | [address] [place] [address] | [place] [address] | [phone] | | [facility] | Blvd. | | | | LABORATORY | | | | + + + + + | REFERENCE LAB | [address] [place] [address] | [place] [address] | | | [facility] | Blvd[address] | [...] | | LABORATORY | | | | [address] | | | | + + + + + + + + | Specimen | + + | Blood | + + + + + + + | Performing | Address | City/State/Zipcode | Phone Number | | Organization | | | | + + + + + | REFERENCE LAB | [address] [place], [place] [address] | [place] [address] | [phone] | | [facility] | Blvd[address] | | | | LABORATORY | | | | + + + + + | REFERENCE LAB | [address] [place], [place] [address] | [place] [address] | | | [facility] | Blvd. | [...]
--- OUTSIDE RECORDS SUMMARY | ~2019-11-22 | XMS | Encounter Summary ---
Demographics + + + | Address | [address] | | | [place] [address] | + + + | Home Phone | | + + + | Preferred Language | Unknown | + + + | Marital Status | | + + + | Tenriism Affiliation | Unknown | + + + | Race | Unknown | + + + | Ethnic Group | Unknown | + + + Author + + + | Author | [facility] | | | and [place] | + + + | Organization | [facility] | | | [...] | | | | [place] [address] | | + + + + + | Emory Larios | ECON | Unknown | | + + + + + Care Team Providers + +------+ + | Care Farm Labor Contractor Name | Role | Phone | + +------+ + | Shannan Deng | PCP | | + +------+ + Reason for Visit +--------+ + | Reason | Comments | +--------+ + | LABS | add on | +--------+ + Encounter Details +--------+ + + + + | Date | Type | Department | Care Team | Description | +--------+ + + + + | 11/05/ | Telephone | [facility] | Yancy Clifford MD | LABS (add on) | | 2019 | | HEMATOLOGY AND | [address] | | | | | ONCOLOGY [address] | [place] | | | | | [address] | [address] | | | | | [place] | | | | | | [address] | | | | | | [phone] | | | +--------+ + + + [...] | 2018 | | | [address] | | | | | | [place] | | | | | | [address] | | | | | | | | +--------+ + + + + | 11/26/ | Office | Oncology | Yancy Clifford MD | | | 2018 | Visit | | [address] | | | | | | [place] | | | | | | [address] | | | | | | | | | | | | Jennyfer Calvert | | | | | | [place], LICENSED CLINICIAN [address] | | | | | | [address] | | | | | | [place] [address] | | | | | | [phone] | | | | | | | | +--------+ + + + + | 11/26/ | Appointment | Infusion Therapy | Yancy Clifford MD | | | 2018 | | | [address] | | | | | | [place] | | | | | | [address] | | | | | | | | +--------+ + + + + | 12/17/ | Appointment | Infusion Therapy | Yancy Clifford MD | | | 2019 | | | [address] | | | | | | [place] | | | | | | [address] | | | | | | | | +--------+ + + + + | 12/17/ | Office | Oncology | Yancy Clifford MD | | | 2019 | Visit | | [address] | | | | | | [place] | | | | | | [address] | | | | | | | | +--------+ + + + + | 12/17/ | Appointment | Infusion Therapy | Yancy Clifford MD | | | 2019 | | | [address] | | | | | | [place] | | | | | | [address] | | | | | | | | +--------+ + + + + documented as of this encounter Visit Diagnoses Not on filedocumented in this encounter"
--- OUTSIDE RECORDS SUMMARY | ~2019-11-22 | XMS | Encounter Summary ---
Demographics + + + | Address | [address] | | | [place] [address] | + + + | Home Phone | | + + + | Preferred Language | Unknown | + + + | Marital Status | | + + + | Roman Catholic Affiliation | Unknown | + + + | Race | Unknown | + + + | Ethnic Group | Unknown | + + + Author + + + | Author | [facility] | | | and [place] | + + + | Organization | [facility] | | | and [...] | | | | [place] [address] | | + + + + + | Emory Larios | ECON | Unknown | | + + + + + Care Team Providers + +------+ + | Care Monotype Mechanic Name | Role | Phone | + +------+ + | Shannan Deng | PCP | | + +------+ + Encounter Details +--------+ + + + + | Date | Type | Department | Care Team | Description | +--------+ + + + + | 07/22/ | Orders Only | [facility] | Sushma Marquis | Malignant neoplasm | | 2019 | | INFUSION SUPPORT | A, RN | of left ovary (HCC) | | | | SERVICES [address] | | (Primary Dx) | | | | [address] | | | | | | [address] [place] | | | | | | [address] | | | | | | [phone] | | | +--------+ + + + [...] [place] | | | | | | [id number] | | | | | | | | +--------+ + + + + | 11/26/ | Office | Oncology | Yancy Clifford MD | | | 2018 | Visit | | [address] | | | | | | [place] | | | | | | [address] | | | | | | | | | | | | Jennyfer Calvert | | | | | | [place] [address] | | | | | | [address] | | | | | | [place] [address] | | | | | | [phone] | | | | | | | | +--------+ + + + + | 11/26/ | Appointment | Infusion Therapy | Yancy Clifford MD | | | 2018 | | | [address] | | | | | | [place] | | | | | | [address] | | | | | | | | +--------+ + + + + | 12/17/ | Appointment | Infusion Therapy | Yancy Clifford MD | | | 2019 | | | [address] | | | | | | [place] | | | | | | [address] | | | | | | | | +--------+ + + + + | 12/17/ | Office | Oncology | Yancy Clifford MD | | | 2019 | Visit | | [address] | | | | | | [place] | | | | | | [address] | | | | | | | | +--------+ + + + + | 12/17/ | Appointment | Infusion Therapy | Yancy Clifford MD | | | 2020 | | | [address] | | | | | | [place] | | | | | | [address] | | | | | | | | +--------+ + + + + documented as of this encounter Visit Diagnoses + + | Diagnosis | + + | 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
--- OUTSIDE RECORDS SUMMARY | ~2019-11-22 | XMS | Encounter Summary ---
Demographics + + + | Address | [address] | | | [place] [address] | + + + | Home Phone | | + + + | Preferred Language | Unknown | + + + | Marital Status | | + + + | Voodoo Affiliation | Unknown | + + + [...] | | | | [place] [address] | | + + + + + | Emory Larios | ECON | Unknown | | + + + + + Care Team Providers + +------+ + | Care Weather Strip Mechanic Name | Role | Phone | + +------+ + | Shannan Deng | PCP | | + +------+ + Encounter Details +--------+ + + + + | Date | Type | Department | Care Team | Description | +--------+ + + + + | 07/05/ | Orders Only | [facility] | Lizzette Yumiko, | | | 2019 | | HEMATOLOGY AND | RN | | | | | ONCOLOGY [address] | | | | | | [address] | | | | | | [place] | | | | | | [address] | | | | | | [phone] | | | +--------+ + + + [...] [place] | | | | | | [address] | | | | | | | | +--------+ + + + + | 11/26/ | Office | Oncology | Yancy Clifford MD | | | 2018 | Visit | | [address] | | | | | | [place] | | | | | | [address] | | | | | | | | | | | | Jennyfer [address]vert | | | | | | [place] [address] | | | | | | [address] | | | | | | [place] [address] | | | | | | [phone] | | | | | | | | +--------+ + + + + | 11/26/ | Appointment | Infusion Therapy | Yancy Clifford MD | | | 2018 | | | [address] | | | | | | [place] | | | | | | [address] | | | | | | | | +--------+ + + + + | 12/17/ | Appointment | Infusion Therapy | Yancy Clifford MD | | | 2019 | | | [address] | | | | | | [place] | | | | | | [address] | | | | | | | | +--------+ + + + + | 12/17/ | Office | Oncology | Yancy Clifford MD | | | 2019 | Visit | | [address] | | | | | | [place] | | | | | | [address] | | | | | | | | +--------+ + + + + | 12/17/ | Appointment | Infusion Therapy | Yancy Clifford MD | | | 2019 | | | [address] | | | | | | [place] | | | | | | [address] | | | | | | | | +--------+ + + + + documented as of this encounter Visit Diagnoses Not on filedocumented in this encounter"
--- OUTSIDE RECORDS SUMMARY | ~2019-11-22 | XMS | Encounter Summary ---
Demographics + + + | Address | [address] | | | [place] [address] | + + + | Home Phone | | + + + | Preferred Language | Unknown | + + + | Marital Status | | + + + | Yazidi Affiliation | Unknown | + + + | Race | Unknown | + + + | Ethnic Group | Unknown | + + + Author + + + | Author | [facility] | | | and [place] | + + + | Organization | [facility] | | | and [...] | | | | [place] [address] | | + + + + + | Emory Larios | ECON | Unknown | | + + + + + Care Team Providers + +------+ + | Care As400 Analyst Name | Role | Phone | + +------+ + PCP | Unavailable | + +------+ + Encounter Details +--------+ + + + + | Date | Type | Department | Care Team | Description | +--------+ + + + + | 06/05/ | Hospital | [facility] | Conversion | Encounter for | | 2019 | Encounter | [facility] [address] | Transaction, | antineoplastic | | | | [address] | Provider Unknown | chemotherapy; | | | | [place], [place] | [phone] | Malignant neoplasm | | | | [address] | | of left ovary (HCC); | | | | [phone] | Yancy Clifford MD [address] | | | | | | [address] | 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; | | | | | [phone] | Epistaxis | | | | | [...] | | | 2018 | | | [address] | | | | | | [place] | | | | | | [address] | | | | | | | | +--------+ + + + + | 11/26/ | Office | Oncology | Yancy Clifford MD | | | 2018 | Visit | | [address] | | | | | | [place] | | | | | | [address] | | | | | | | | | | | | Jennyfer Calvert | | | | | | CIERRA Lou [address] | | | | | | [address] | | | | | | [place] [address] | | | | | | [phone] | | | | | | | | +--------+ + + + + | 11/26/ | Appointment | Infusion Therapy | Yancy Clifford MD | | | 2018 | | | [address] | | | | | | [place] | | | | | | [address] | | | | | | | | +--------+ + + + + | 12/17/ | Appointment | Infusion Therapy | Yancy Clifford MD | | | 2019 | | | [address] | | | | | | [place] | | | | | | [address] | | | | | | | | +--------+ + + + + | 12/17/ | Office | Oncology | Yancy Clifford MD | | | 2019 | Visit | | [address] | | | | | | [place] | | | | | | [address] | | | | | | | | +--------+ + + + + | 12/17/ | Appointment | Infusion Therapy | Yancy Clifford MD | | | 2019 | | | [address] | | | | | | [place] | | | | | | [address] | | | | | | | [...] the priorexam when it measured 1.1 cm ().Peritoneum and | | Retroperitoneum: No intraperitoneal free [...] 1.2 | | cm.Signed by: Catracho Bravo, RuiaacSign Date/Time: 06/05/2019 4:12 PM | |exam, anterior [...] x 1.2 cm. | |Signed by: Catracho Bravo, Dell | |Sign Date/Time: 06/05/2019 4:12 PM | [...]
--- OUTSIDE RECORDS SUMMARY | ~2019-11-22 | XMS | Encounter Summary ---
Demographics + + + | Address | [address] [address] | | | [place] [address] | + + + | Home Phone | | + + + | Preferred Language | Unknown | + + + | Marital Status | | + + + | Scientologist Affiliation | Unknown | + + + [...] | | | | [place] [address] | | + + + + + | Emory Larios | ECON | Unknown | | + + + + + Care Team Providers + +------+ + | Care Orthopedic Radiologic Technologist Name | Role | Phone | + [...] | | | Ascites, | [place], | [place] [address] | | | | | malignant | [place] [address] | Phone: | | | | | Procedures | Phone: | [phone] | | | | | [place] | [phone] | Fax: | | | | | BEVACIZUMAB | Fax: | [phone] | | | | | INJECTION, | [phone] | | | | | | 10 MG [id number] | | | | | | | - [place] | | | | | | | [...] + + | 11/05/ | Hospital | [facility] | Yancy Clifford MD | 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 It is given by a health hemodialysis patient care specialist in a h ospital or clinic setting. Talk to your payroll supervisor regarding the use of this medicine in children. Special care may be needed. What side effects may I notice from receiving this medicine? Side effects that you should report to your doctor or health hemodialysis patient care specialist as soon as p ossible: allergic reactions [...] attention (report to your doctor or health hemodialysis patient care specialist if they continue or are bothersome): back pain changes in taste decreased appetite dry skin nausea tiredness What may interact with this medicine? Interactions are not expected. What if I miss a dose? It is important not to miss your dose. Call your doctor or health hemodialysis patient care specialist if you are unable to keep an [...] should talk to your doctor or health hemodialysis patient care specialist if you are concerned about your fertility. [...] for any concerns or questions. Discharged to [facility] with copy of labs and calendar for next appointment: 26 of November 2:15 PM: IVT LAB DRAW with CATRACHITO BOO SS LAB DRAW in [facility] HO INFUSION SUPPORT SERVICES 3:00 PM: Office Visit Extended Appointment starts at 3:15 PM with CIERRA Hartley in [facility] HEMATOLOGY AND ONCOLOGY 4:00 PM: Onc Infusion with JAZZY CHAIR 14 in [facility] HEMATOLOGY AND ONCOLOGY INFUSIONS documented in this encounter Plan of Treatment +--------+ + + + + | Date | Type | Specialty | Care Team | Description | +--------+ + + + + | 11/26/ | Appointment | Infusion Therapy | Yancy Clifofrd MD | | | 2018 | | | [address] | | | | | | [place] | | | | | | [address] | | | | | | | | +--------+ + + + + | 11/26/ | Office | Oncology | Yancy Clifford MD | | | 2018 | Visit | | [address] | | | | | | [place] | | | | | | [address] | | | | | | | | | | | | Jennyfer Calvert | | | | | | CIERRA Lou [address] | | | | | | [address] | | | | | | [place] [address] | | | | | | [phone] | | | | | | | | +--------+ + + + + | 11/26/ | Appointment | Infusion Therapy | Yancy Clifford MD | | | 2018 | | | [address] | | | | | | [place] | | | | | | [address] | | | | | | | | +--------+ + + + + | 12/17/ | Appointment | Infusion Therapy | Yancy Clifford MD | | | 2019 | | | [address] | | | | | | [place] | | | | | | [address] | | | | | | | | +--------+ + + + + | 12/17/ | Office | Oncology | Yancy Clifford MD | | | 2019 | Visit | | [address] | | | | | | [place] | | | | | | [address] | | | | | | | | +--------+ + + + + | 12/17/ | Appointment | Infusion Therapy | Yancy Clifford MD | | | 2019 | | | [address] | | | | | | [place] | | | | | | [address] | | | | | | | [...] | | | over 30 Minutes, ONCE, [facility] | | | | | | [...] | | | | | NS, Starting [facility] 11/05/19 at 1519 | | | | | | + +---------+ +---------+ +---+ +---+---+ | | | +---+---+ documented in this encounter"
--- OUTSIDE RECORDS SUMMARY | ~2019-11-22 | XMS | Encounter Summary ---
Demographics + + + | Address | [address] | | | [place] [address] | + + + | Home Phone [...] | | | | [place] [address] | | + + + + + | Emory Larios | ECON | Unknown | | + + + + + Care Team Providers + +------+ + | Care Oyster Unloader Name | Role | Phone | + [...] Provider Unknown | | | | | [place], [place] | [phone] | | | | | [address] | | | | | | [phone] | | | +--------+ + + + [...] [place] | | | | | | [id number] | | | | | | | | +--------+ + + + + | 11/26/ | Office | Oncology | Yancy Clifford MD | | | 2018 | Visit | | [address] | | | | | | [place] | | | | | | [address] | | | | | | | | | | | | Jennyfer Calvert | | | | | | [address] Lou [address] | | | | | | [address] | | | | | | [place] [address] | | | | | | [phone] | | | | | | | | +--------+ + + + + | 11/26/ | Appointment | Infusion Therapy | Yancy Clifford MD | | | 2018 | | | [address] | | | | | | [place] | | | | | | [address] | | | | | | | | +--------+ + + + + | 12/17/ | Appointment | Infusion Therapy | Yancy Clifford MD | | | 2019 | | | [address] | | | | | | [place] | | | | | | [address] | | | | | | | | +--------+ + + + + | 12/17/ | Office | Oncology | Yancy Clifford MD | | | 2019 | Visit | | [address] | | | | | | [place] | | | | | | [address] | | | | | | | | +--------+ + + + + | 12/17/ | Appointment | Infusion Therapy | Yancy Clifford MD | | | 2019 | | | [address] | | | | | | [place] | | | | | | [address] | | | | | | | | +--------+ + + + + documented as of this encounter Visit Diagnoses Not on filedocumented in this encounter"
--- OUTSIDE RECORDS SUMMARY | ~2019-11-22 | XMS | Encounter Summary ---
Demographics + + + | Address | [address] | | | [place] [address] | + + + | Home Phone | | + + + | Preferred Language | Unknown | + + + | Marital Status | | + + + | Rastafari Affiliation | Unknown | + + + | Race | Unknown | + + + | Ethnic Group | Unknown | + + + Author + + + | Author | [facility] | | | and [place] | + + + | Organization | [facility] | | [...] | | | | [place] [address] | | + + + + + | Emory Larios | ECON | Unknown | | + + + + + Care Team Providers + +------+ + | Care Home Health Care Coordinator Name | Role | Phone | + +------+ + | Shannan Deng | PCP | | + +------+ + Encounter Details +--------+ + + + + | Date | Type | Department | Care Team | Description | +--------+ + + + + | 08/19/ | Orders Only | [facility] | Yancy Clifford MD | | | 2017 | | INFUSION SUPPORT | [address] | | | | | SERVICES [address] | [place], [place] | | | | | [address] | [address] | | | | | [address] [place] | | | | | | [address] | | | | | | [phone] | | | +--------+ + + + [...] Progress Notes Aissatou Teixeira, Provider Unknown - 08/19/2018 8:00 AM PDTFormatting of this note m ight be different from the original. Progress Notes by Bhakti Godfrey RN at 08/19/18 08 Author: Bhakti Godfrey RN Service: (none) Author Type: Registered Nurse Filed: 08/19/1848 Encounter Date: 08/19/2018 Status: Signed Tools Administrator: Bhakti Godfrey RN (Registered Nurse) Port accessed. Labs drawn. Heparin locked and de-accessed docume nted in this encounter Plan of [...] [place] | | | | | | [address] | | | | | | | | | | | | Jennyfer [address] | | | | | | Carm[address]ERRA [address] | [address] | | | | | | [place] [address] | | | | | | [phone] | | | | | | | | +--------+ + + + + | 11/26/ | Appointment | Infusion Therapy | Yancy Clifford MD | | | 2018 | | | [address] | | | | | | [place] | | | | | | [address] | | | | | | | | +--------+ + + + + | 12/17/ | Appointment | Infusion Therapy | Yancy Clifford MD | | | 2019 | | | [address] | | | | | | [place] | | | | | | [address] | | | | | | | | +--------+ + + + + | 12/17/ | Office | Oncology | Yancy Clifford MD | | | 2019 | Visit | | [address] | | | | | | [place] | | | | | | [address] | | | | | | | | +--------+ + + + + | 12/17/ | Appointment | Infusion Therapy | Yancy Clifford MD | | | 2020 | | | [address] | | | | | | [place] | | | | | | [address] | | | | | | | | +--------+ + + + + documented as of this encounter Procedures + +--------+ + + + | Procedure Name | Priori | Date/Time | Associated Diagnosis | Comments | | | ty | | | | + +--------+ + + + | EXTERNAL LAB: [facility] | Routin | 08/19/2018 | | Results for this | | | e | 8:25 AM | | procedure are in the | | | | PDT | | results section. | + +--------+ + + + | CA 125, QUANT | Routin | 08/19/2018 | | Results for this | | | e | 8:25 AM | | procedure are in the | | | | PDT | | results section. | + +--------+ + + + | COMPREHENSIVE | Routin | 08/19/2018 | | Results for this | | METABOLIC PANEL | e | 8:25 AM | | procedure are in the | | | | PDT | | results section. | + +--------+ + + + documented in this encounter Results External Lab: [facility] (08/19/2018 8:25 AM PDT) + + + + + + | Component | Value | Ref Range | Performed | Pathologist | | | | | At | Signature | + + + + + + | WBC | 6.44 | 3.80 - 11.00 | EXTERNAL | | | | | 10*3/uL | LAB | | + + + + + + | RED CELL | 4.83 | 3.70 - 5.10 | EXTERNAL | | | COUNT | | 10*6/uL | LAB | | + + + + + + | Hgb | 14.2 | 11.3 - 15.5 | EXTERNAL | | | | | g/dL | LAB | | + + + + + + | Hematocrit, | 43.0 | 34.0 - 46.0 % | EXTERNAL | | | POC | | | LAB | | + + + + + + | MCV | 89.1 | 80.0 - 100.0 fL | EXTERNAL | | | | | | LAB | | + + + + + + | MCH | 29.5 | 27.0 - 34.0 pg | EXTERNAL | | | | | | LAB | | + + + + + + | MCHC | 33.1 | 32.0 - 35.5 | EXTERNAL | | | | | g/dL | LAB | | + + + + + + | RDW-CV | 45.5 | 37 - 53 fL | EXTERNAL | | | | | | LAB | | + + + + + + | Platelet | 245 | 150 - 400 | EXTERNAL | | | Count | | 10*3/uL | LAB | | | Plasma | | | | | + + + + + + | MPV | 7.4 | fL | EXTERNAL | | | | | | LAB | | + + + + + + | Differentia | AUTOMATED | | EXTERNAL | | | l Type | | | LAB | | + + + + + + | % Segmented | 59.87 | % | EXTERNAL | | | | | | LAB | | | Neutrophils | | | | | + + + + + + | % | 33.29 | % | EXTERNAL | | | Lymphocytes | | | LAB | | + + + + + + | % Monocytes | 4.82 | % | EXTERNAL | | | | | | LAB | | + + + + + + | % | 1.35 | % | EXTERNAL | | | Eosinophils | | | LAB | | + + + + + + | % Basophils | 0.67 | % | EXTERNAL | | | | | | LAB | | + + + + + + | Absolute | 3.85 | 1.90 - 7.40 | EXTERNAL | | | Segmented | | 10*3/uL | LAB | | | Neutrophils | | | | | + + + + + + | Absolute | 2.14 | 1.00 - 3.90 | EXTERNAL | [...] + + + + | Absolute | 0.04 | 0.00 - 0.10 | EXTERNAL | [...] + +---------+ + + CA 125, Quant (08/19/2018 8:25 AM PDT) + + + + + + | Component | Value | Ref Range | Performed | Pathologist | | | | | At | Signature | + + + + + + | CA-125 | 30.2Comment: [facility] | 0 - 35 U/mL [...] + +---------+ + + Comprehensive Metabolic Panel (08/19/2018 8:25 AM PDT) + + + + + + | Component | Value | Ref Range | Performed | Pathologist | | | | | At | Signature | + + + + + + | Na | 141 | 135 - 145 | EXTERNAL | | | | | mmol/L | LAB | | + + + + + + | K | 4.4 | 3.5 - 4.9 | EXTERNAL | | | | | mmol/L | LAB | | + + + + + + | Cl | 103 | 99 - 109 mmol/L | EXTERNAL | | | | | | LAB | | + + + + + + | CO2 | 27 | 23 - 32 mmol/L | EXTERNAL | | | | | | LAB | | + + + + + + | Anion Gap | 15 | 5 - 20 mmol/L | EXTERNAL | | | | | | LAB | | + + + + + + | Glucose, | 119 (H) | 65 - 99 mg/dL | EXTERNAL | | | Fasting | | | LAB | | + + + + + + | BUN | 13 | 8 - 25 mg/dL | EXTERNAL | | | | | | LAB | | + + + + + + | Creatinine | 0.65 | 0.50 - 1.00 | EXTERNAL | [...] + + + + | Protein, | 7.0 | 6.3 - 8.2 g/dL | EXTERNAL | | | Total | | | LAB | | + + + + + + | Albumin | 4.1 | 3.6 - 5.0 g/dL | EXTERNAL | | | | | | LAB | | + + + + + + | Globulin | 2.9 | 1.3 - 4.9 g/dL | EXTERNAL | | | | | | LAB | | + + + + + + | A/G Ratio | 1.4 | 1.0 - 2.4 | EXTERNAL | | | | | | LAB | | + + + + + + | Bilirubin | 0.5 | 0.1 - 1.5 mg/dL | EXTERNAL | | | Total | | | LAB | | + + + + + + | ALP, | 87 | 35 - 115 U/L | EXTERNAL | | | External | | | LAB | | + + + + + + | AST | 11 | 10 - 45 U/L | EXTERNAL [...]
--- OUTSIDE RECORDS SUMMARY | ~2019-11-22 | XMS | Encounter Summary ---
Demographics + + + | Address | [address] [address] | | | [place] [address] | + + + | Home Phone | | + + + | Preferred Language | Unknown | + + + | Marital Status | | + + + | Protestant Affiliation | Unknown | + + + [...] | | | | [place] [address] | | + + + + + | Emory Larios | ECON | Unknown | | + + + + + Care Team Providers + +------+ + | Care Painting Technician Name | Role | Phone | + +------+ + | Shannan Deng | PCP | | + +------+ + Reason for Visit + + + | Reason | Comments | + + + | Follow-up | | + + + Evaluate & Treat (Routine) +--------+--------+ + + + + | Status | Reason | Specialty | Diagnoses / | Referred By | Referred To | | | | | Procedures | Contact | Contact | +--------+--------+ + + + + | Closed | | | Diagnoses | Venessa, Sahil Catrachito | | | | | Malignant | MD Yancy | Pulmonology | | | | | neoplasm of | [address] | | | | | both ovaries | [address] | [address] | | | | | (HCC) | AVE | [place] | | | | | Encounter | [place], | [address] | | | | | for | [place] [address] | Phone: | | | | | antineoplast | Phone: | [phone] | | | | | ic | [phone] | Fax: | | | | | chemotherapy | Fax: | [phone] | | | | | Peritoneal | 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 | | | | | | | | | | | | | carcinomatos | | | | | | | is (HCC) | | | | | | | Chronic | | | | | | | obstructive | | | | | | | pulmonary | | | | | | | disease, | | | | | | | unspecified | | | | | | | COPD type | | | | | | | (HCC) | | | +--------+--------+ + + + + Encounter Details +--------+---------+ + + + | Date | Type | Department | Care Team | Description | +--------+---------+ + + + | 08/13/ | Office | [facility] | Scott Boswell MD | Personal history of | | 2019 | Visit | PULMONOLOGY [address] | tobacco use, | | | | [address] | [place], [place] | presenting hazards | | | | [place], [place] | [address] | to health (Primary | | | | [address] | | Dx); Mild | | | | [phone] | | intermittent asthma, | | | | | | unspecified whether | | | | | | complicated | +--------+---------+ + + + Social History [...] + + + | Blood Pressure | 120/67 | 08/13/2019 12:41 PM | | | | | PDT | | + + + + + | Pulse | 80 | 08/13/2019 12:41 PM | | | | | PDT | | + + + + + | Temperature | 36.3 C (97.4 F) | 08/13/2019 12:41 PM | | | | | PDT | | + + + + + | Respiratory Rate | - | - | | + + + + + | Oxygen Saturation | 95% | 08/13/2019 12:41 PM | | | | | PDT | | + + + + + | Inhaled Oxygen | - | - | | | Concentration | | | | + + + + + | Weight | 84.8 kg (187 lb) | 08/13/2019 12:41 PM | | | | | PDT | | + + + + + | Height | - | - | | + + + + + | Body Mass Index | 32.08 | 08/13/2019 9:17 AM | | | | | PDT | | + + + + + documented in this encounter Progress Notes Scott Boswell MD - 08/13/2019 12:40 PM PDT Subjective: Patient ID: Ramila Lopez is a 59 y.o. female is here for evaluation of shortness of b reath . HPI The following portions of the patient's history were reviewed and updated as appropriate an d is available elsewhere in the record: allergies, current medications, past family history, past medical history, past social history, past surgical history and problem list. The patient is a pleasant 59-year-old female with past medical history of metastatic ovaria n cancer who presents with progressive shortness of breath and wheezing for the past many ye ars. The patient states that she has been smoking for the last 40 years and smokes half a p ack to a pack a day. She is never been formally diagnosed with COPD. She has shortness of breath on exertion which is getting worse. She complains of wheezing along with a cough. T here is no diurnal variation in her cough. The cough is usually dry but has occasional expe ctoration. She denies any hemoptysis. She does have seasonal variation in her symptoms and her symptoms usually start at the beginning of summer and and in the beginning of yin. She has never been tested for any allergies but she cannot say if anything particular bothe rs her. She denies frequent hospitalizations or ER visits. She does not recall if she was ever macie ated with prednisone for her shortness of breath. She does not recall ever being intubated. Interim history 08/13/2019 The patient has been stable since the last visit . She has been using albuterol only and he r requirement has been minimal. She has not been using flovent . Review of Systems Constitutional: Negative. HENT: Negative. Eyes: Negative. Respiratory: Negative. Cardiovascular: Negative. Gastrointestinal: Negative. Genitourinary: Negative. Musculoskeletal: Negative. Skin: Negative. Neurological: Negative. Endo/Heme/Allergies: Negative. Psychiatric/Behavioral: Negative. History: Past Medical History: Diagnosis Date Arthritis Asthma [...] file Social History Narrative Not on file Family History Problem Relation Age of Onset Cancer Mother Lung cancer Mother Cancer Father Colon cancer Father Heart attack Father Cancer Other Allergies: Allergies Allergen Reactions Codeine Nausea And Vomiting Current Medications: Current Outpatient Medications on File Prior to [...] medications on file prior to visit. Objective: Physical Exam Vitals: 08/13/19 1241 BP: 120/67 Pulse: 80 Temp: 36.3 C (97.4 F) PainSc: 0 - No pain Vital signs reviewed. GENERAL: pleasant, cooperative, oriented, not in distress HEENT: pink conjunctiva, anicteric sclerae, moist oral mucosae and without any lesions, nor mal appearing nasal mucosae; no JVD; MALAMPATTI _2__; no thyromegaly; no cervicolymphadenopa tristen CVS: PMI non displaced, NRRR, S1 and S2, no murmurs/gallops/rubs CHEST: Examination of the chest was unremarkable. There were no bony deformities, no asymme try, and no other abnormalities. LUNGS: Normal effort, Equal in expansion, resonant to percussion, clear and equal breath so unds, no wheezes/rales/rhonchi ABDOMEN: Flat abdomen, NABS, non-tender on palpation, Traube's space intact, liver span nor mal, no masses palpated EXTREMITIES: good distal pulses, no cyanosis, no edema, no clubbing, no nail abnormalities NEURO: awake and oriented, gait normal, no focal neurologic deficits CT chest abdomen pelvis 06/05/2019 Small left pleural effusion, mild left basilar atelectasis PFT 06/26/2019 FEV1/FVC 78 Fev1 2.17/86 FVC 2.78/87 There is no significant bronchodilator response. TLC 5.15/101 Diffusing capacity 18.05/74 There is no obstructive impairment and there is no significant bronchodilator response. Th e lung volumes are normal. The diffusing capacity is normal. Assessment/Plan Assessment and Plan: 1. Tobacco abuse The patient was councelled about smoking cessation. He/she has been educated about harms of smoking that include but are not limited to cancers of lung and other organ system,cardiova scular disease, and worsening of his pulmonary disease. I have offered him aides to help w ith smoking cessation including nicotine replacement, and anti-depressant medications. We spent 10 minutes in discussing the role of quitting cigarettes. She plans to quit smoki ng by herself. 2. Mild intermittent asthma, unspecified whether complicated The patient has history of heavy smoking however her symptoms are waxing and waning suggest ing possibility of underlying asthma. The pulmonary function test does not show any obstruct ion. She has been stable on albuterol only and her requirement is minimal. Thank you for allowing me to participate in your patient's care. We will review test result s that we have ordered with the patient once they become available. A return visit has been scheduled in 6 months. Scott Boswell MD Pulmonary and Critical Care Medicine [facility] [address] , [place] [address] documented in this enco unter Plan of Treatment +--------+ + + + + | Date | Type | Specialty | Care Team | Description | +--------+ + + + + | 11/26/ | Appointment | Infusion Therapy | Yancy Clifford MD | | | 2018 | | | [address] | | | | | | [place] | | | | | | [address] | | | | | | | | +--------+ + + + + | 11/26/ | Office | Oncology | Yancy Clifford MD | | | 2018 | Visit | | [address] | | | | | | [place] | | | | | | [address] | | | | | | | | | | | | Jennyfer Calvert | | | | | | [place] [address] | | | | | | [address] | | | | | | [place] [address] | | | | | | [phone] | | | | | | | | +--------+ + + + + | 11/26/ | Appointment | Infusion Therapy | Yancy Clifford MD | | | 2018 | | | [address] | | | | | | [place] | | | | | | [address] | | | | | | | | +--------+ + + + + | 12/17/ | Appointment | Infusion Therapy | Yancy Clifford MD | | | 2019 | | | [address] | | | | | | [place] | | | | | | [address] | | | | | | | | +--------+ + + + + | 12/17/ | Office | Oncology | Yancy Clifford MD | | | 2019 | Visit | | [address] | | | | | | [place] | | | | | | [address] | | | | | | | | +--------+ + + + + | 12/17/ | Appointment | Infusion Therapy | Yancy Clifford MD | | | 2020 | | | [address] | | | | | | [place] | | | | | | [address] | | | | | | | | +--------+ + + + + documented as of this encounter Visit Diagnoses + + | Diagnosis | + + | Personal history of tobacco use, presenting hazards to health - Primary | + + | Mild intermittent asthma, unspecified whether complicated | + + documented in this encounter"
--- OUTSIDE RECORDS SUMMARY | ~2019-11-22 | XMS | Encounter Summary ---
Demographics + + + | Address | [address] [address] | | | [place] [address] | + + + | Home Phone [...] | | | | [place] [address] | | + + + + + | Emory Larios | ECON | Unknown | | + + + + + Care Team Providers + +------+ + | Care Pmo Lead Name | Role | Phone | + +------+ + | Shannan Deng | PCP | | + +------+ + Encounter Details +--------+ + + + + | Date | Type | Department | Care Team | Description | +--------+ + + + + | 12/25/ | Orders Only | [facility] | Yancy Clifford MD | | | 2019 | | HEMATOLOGY AND | [address] | | | | | ONCOLOGY [address] | [place] | | | | | [address] | [address] | | | | | [place] | | | | | | [address] | | | | | | [phone] | | | +--------+ + + + [...] [place] | | | | | | [address] | | | | | | | | +--------+ + + + + | 11/26/ | Office | Oncology | Yancy Clifford MD | | | 2018 | Visit | | [address] | | | | | | [place] | | | | | | [address] | | | | | | | | | | | | Jennyfer [address] | | | | | | [place] [address] | | | | | | [address] | | | | | | [place] [address] | | | | | | [phone] | | | | | | | | +--------+ + + + + | 11/26/ | Appointment | Infusion Therapy | Yancy Clifford MD | | | 2018 | | | [address] | | | | | | [place] | | | | | | [address] | | | | | | | | +--------+ + + + + | 12/17/ | Appointment | Infusion Therapy | Yancy Clifford MD | | | 2019 | | | [address] | | | | | | [place] | | | | | | [address] | | | | | | | | +--------+ + + + + | 12/17/ | Office | Oncology | Yancy Clifford MD | | | 2019 | Visit | | [address] | | | | | | [place] | | | | | | [address] | | | | | | | | +--------+ + + + + | 12/17/ | Appointment | Infusion Therapy | Yancy Clifford MD | | | 2020 | | | [address] | | | | | | [place] | | | | | | [address] | | | | | | | | +--------+ + + + + documented as of this encounter Visit Diagnoses Not on filedocumented in this encounter"
--- OUTSIDE RECORDS SUMMARY | ~2019-11-22 | XMS | Encounter Summary ---
Demographics + + + | Address | [address] | | | [place] [address] | + + + | Home Phone | | + + + | Preferred Language | Unknown | + + + | Marital Status | | + + + | Yarsanism Affiliation | Unknown | + + + | Race | Unknown | + + + | Ethnic Group | Unknown | + + + Author + + + | Author | [facility] | | | and [place] | + + + | Organization | [facility] | [...] | | | | [place] [address] | | + + + + + | Emory Larios | ECON | Unknown | | + + + + + Care Team Providers + +------+ + | Care Bowl Turner Name | Role | Phone | + +------+ + | Shannan Deng | PCP | | + +------+ + Encounter Details +--------+ + + + + | Date | Type | Department | Care Team | Description | +--------+ + + + + | 05/12/ | Orders Only | [facility] | Yancy Clifford MD | | | 2018 | | [address] [facility] [facility] | [address] | | | | | [facility] | [place] | | | | | [address] | [id number] | | | | | [phone] | | | +--------+ + + + [...] [place] | | | | | | [address] | | | | | | | | +--------+ + + + + | 11/26/ | Office | Oncology | Yancy Clifford MD | | | 2018 | Visit | | [address] | | | | | | [place] | | | | | | [address] | | | | | | | | | | | | Jennyfer [address] | | | | | | [place] [address] | | | | | | [address] | | | | | | [place] [address] | | | | | | [phone] | | | | | | | | +--------+ + + + + | 11/26/ | Appointment | Infusion Therapy | Yancy Clifford MD | | | 2018 | | | [address] | | | | | | [place] | | | | | | [address] | | | | | | | | +--------+ + + + + | 12/17/ | Appointment | Infusion Therapy | Yancy Clifford MD | | | 2019 | | | [address] | | | | | | [place] | | | | | | [address] | | | | | | | | +--------+ + + + + | 12/17/ | Office | Oncology | Yancy Clifford MD | | | 2019 | Visit | | [address] | | | | | | [place] | | | | | | [address] | | | | | | | | +--------+ + + + + | 12/17/ | Appointment | Infusion Therapy | Yancy Clifford MD | | | 2019 | | | [address] | | | | | | [place] | | | | | | [address] | | | | | | | | +--------+ + + + + documented as of this encounter Procedures + +--------+ + + + | Procedure Name | Priori | Date/Time | Associated Diagnosis | Comments | | | ty | | | | + +--------+ + + + | EXTERNAL LAB: CBC | Routin | 05/12/2018 | | Results for this | | | e | 11:06 AM | | procedure are in the | | | | PDT | | results section. | + +--------+ + + + | CA 125, QUANT | Routin | 05/12/2018 | | Results for this | | | e | 11:06 AM | | procedure are in the | | | | PDT | | results section. | + +--------+ + + + | COMPREHENSIVE | Routin | 05/12/2018 | | Results for this | | METABOLIC PANEL | e | 11:06 AM | | procedure are in the | | | | PDT | | results section. | + +--------+ + + + documented in this encounter Results External Lab: CBC (05/12/2018 11:06 AM PDT) + + + + + + | Component | Value | Ref Range | Performed | Pathologist | | | | | At | Signature | + + + + + + | WBC | 6.99 | 3.80 - 11.00 | EXTERNAL | | | | | 10*3/uL | LAB | | + + + + + + | RED CELL | 4.56 | 3.70 - 5.10 | EXTERNAL | | | COUNT | | 10*6/uL | LAB | | + + + + + + | Hgb | 14.0 | 11.3 - 15.5 | EXTERNAL | | | | | g/dL | LAB | | + + + + + + | Hematocrit, | 40.1 | 34.0 - 46.0 % | EXTERNAL | | | POC | | | LAB | | + + + + + + | MCV | 87.9 | 80.0 - 100.0 fL | EXTERNAL | | | | | | LAB | | + + + + + + | MCH | 30.6 | 27.0 - 34.0 pg | EXTERNAL | | | | | | LAB | | + + + + + + | MCHC | 34.9 | 32.0 - 35.5 | EXTERNAL | | | | | g/dL | LAB | | + + + + + + | RDW-CV | 44.6 | 37 - 53 fL | EXTERNAL | | | | | | LAB | | + + + + + + | Platelet | 255 | 150 - 400 | EXTERNAL | [...] + + + | % Segmented | 61.41 | % | EXTERNAL | | | | | | LAB | | | Neutrophils | | | | | + + + + + + | % | 30.52 | % | EXTERNAL | | | Lymphocytes | | | LAB | | + + + + + + | % Monocytes | 6.34 | % | EXTERNAL | | | | | | LAB | | + + + + + + | % | 1.08 | % | EXTERNAL | | | Eosinophils | | | LAB | | + + + + + + | % Basophils | 0.65 | % | EXTERNAL | | | | | | LAB | | + + + + + + | Absolute | 4.29 | 1.90 - 7.40 | EXTERNAL | | | Segmented | | 10*3/uL | LAB | | | Neutrophils | | | | | + + + + + + | Absolute | 2.13 | 1.00 - 3.90 | EXTERNAL | | | Lymphocytes | | 10*3/uL | LAB | | + + + + + + | Absolute | 0.44 | 0.00 - 0.80 | EXTERNAL | | | Monocytes | | 10*3/uL | LAB | | + + + + + + | Absolute | 0.08 | 0.00 - 0.50 | EXTERNAL | | | Eosinophils | | 10*3/uL | LAB | | + + + + + + | Absolute | 0.05 | 0.00 - 0.10 | EXTERNAL | [...] + +---------+ + + CA 125, Quant (05/12/2018 11:06 AM PDT) + + + + + + | Component | Value | Ref Range | Performed | Pathologist | | | | | At | Signature | + + + + + + | CA-125 | 9.4Comment: [facility] | 0 - 35 U/mL [...] + +---------+ + + Comprehensive Metabolic Panel (05/12/2018 11:06 AM PDT) + + + + + + | Component | Value | Ref Range | Performed | Pathologist | | | | | At | Signature | + + + + + + | Na | 141 | 135 - 145 | EXTERNAL | | | | | mmol/L | LAB | | + + + + + + | K | 4.5 | 3.5 - 4.9 | EXTERNAL | | | | | mmol/L | LAB | | + + + + + + | Cl | 107 | 99 - 109 mmol/L | EXTERNAL | | | | | | LAB | | + + + + + + | CO2 | 25 | 23 - 32 mmol/L | EXTERNAL | | | | | | LAB | | + + + + + + | Anion Gap | 14 | 5 - 20 mmol/L | EXTERNAL | | | | | | LAB | | + + + + + + | Glucose, | 85 | 65 - 99 mg/dL | EXTERNAL | | | Fasting | | | LAB | | + + + + + + | BUN | 13 | 8 - 25 mg/dL | EXTERNAL | | | | | | LAB | | + + + + + + | Creatinine | 0.7 | 0.50 - 1.00 | EXTERNAL | | | | | mg/dL | LAB | | + + + + + + | BUN/Creatin | 19 | | EXTERNAL | | | ine Ratio | | | LAB | | + + + + + + | Calcium | 9.2 | 8.5 - 10.5 | EXTERNAL | | | | | mg/dL | LAB | | + + + + + + | Protein, | 6.8 | 6.3 - 8.2 g/dL | EXTERNAL | | | Total | | | LAB | | + + + + + + | Albumin | 3.4 (L) | 3.6 - 5.0 g/dL | EXTERNAL | | | | | | LAB | | + + + + + + | Globulin | 3.4 | 1.3 - 4.9 g/dL | EXTERNAL | | | | | | LAB | | + + + + + + | A/G Ratio | 1.0 | 1.0 - 2.4 | EXTERNAL | [...] + + + + | AST | 9 (L) | 10 - 45 U/L | EXTERNAL [...] | traceable equation. | | | | | | PLEASE NOTE NEW | | | | | | CALCULATION EFFECTIVE | | | | | | 04/29/2018 | | | | + + + [...]
--- OUTSIDE RECORDS SUMMARY | ~2019-11-22 | XMS | Encounter Summary ---
Demographics + + + | Address | [address] | | | [place] [address] | + + + | Home Phone | | + + + | Preferred Language | Unknown | + + + | Marital Status | | + + + | Christianity Affiliation | Unknown | + + + | Race | Unknown | + + + | Ethnic Group | Unknown | + + + Author + + + | Author | [facility] | | | and [place] | + + + | Organization | [facility] | | [...] | | | | [place] [address] | | + + + + + | Emory Larios | ECON | Unknown | | + + + + + Care Team Providers + +------+ + | Care Customer Service Operator Name | Role | Phone | [...] Closed | | Radiology | Diagnoses | [place], | [facility] [address] | | | | | Malignant | [address], | [address] | | | | | neoplasm of | [address] | [place], [place] | | | | | left ovary | [address] | [address] | | | | | (HCC) | AVE | Phone: | | | | | Procedures | [place], | [phone] | | | | | CT Chest | [place] [address] | Fax: | | | | | Abdomen | Phone: | [phone] | | | | | Pelvis w | [phone] | | | | | | Contrast | Fax: | | | | | | | [phone] | | +--------+--------+ + + + + Reason for Visit + + + | Reason | Comments | + + + | Follow-up | Malignant neoplasm of left ovary | + + + Encounter Details +--------+---------+ + + + | Date | Type | Department | Care Team | Description | +--------+---------+ + + + | 10/15/ | Office | [facility] | Yancy Clifford MD | Malignant neoplasm | | 2019 | Visit | HEMATOLOGY AND | [address] | of left ovary (HCC) | | | | ONCOLOGY [address] | [place] | (Primary Dx) | | | | [address] | [address] | | | | | [place] | | | | | | [address] | Jennyfer [address] | | | | | [phone] | [place] Lou [address] | | | | | | [address] | | | | | | [place] [address] | | | | | | [phone] | | | | | | | [...] might be differ ent from the original. [facility] Hematology & Oncology Oncology Progress Note [...] 05/2017 Genetic Testing Negative genetic testing through [employer]. 07/2017 Surgery S/p debulking surgery. Final pathology [...] file Gets together: Not on file Attends adventist service: Not on file Active member of [...] 35 U/mL Final Comment: [facility] ([facility] [employer]IA [employer] IMMUNOASSAY METHOD IS USED. RESULTS OBTAINED WITH DIFFERENT ASSAY METHODS OR KITS CANNOT BE USED INTERCHANGEABLY. Testing performed at [facility];[address] [place] [address];[place] [address] Color, UA 10/15/2019 YELLOW Final Clarity, UA 10/15/2019 HAZY Final Specific [place], Urine 10/15/2019 1.025 1.002 - 1.030 Final [...] NEGATIVE NEG mg/dL Final Testing Performed at [facility], [address], [address], [place] [address] Na 10/15/2019 138 135 - 145 mmol/L Final Testing performed at [facility];[address] [place] [address];[place] [address] K 10/15/2019 4.3 3.5 - 4.9 mmol/L Final Testing performed at [facility];[address] [place] [address];[place] [address] Cl 10/15/2019 105 99 - 109 mmol/L Final Testing performed at [facility];[address] [place] [address];[place] [address] CO2 10/15/2019 26 23 - 32 mmol/L Final Testing Performed at [facility], [address], [address], [place] [address] Anion Gap 10/15/2019 11 5 - 20 mmol/L Final Testing performed at [facility];[address];[place] [address] Glucose 10/15/2019 145* 65 - 99 mg/dL [...] MDRD IDMS traceable equation. Testing Performed at [facility], [address], [address], [place] [address] WBC 10/15/2019 7.27 3.80 - 11.00 K/uL [...] - 0.10 K/uL Final Testing Performed at [facility], [address], [address], [place] [address] PRO/CREA RATIO,URINE 10/15/2019 0.508 Final Testing performed at [facility];[address] [place] [address];[place] [address] Creatinine, random urine 10/15/2019 120.0 mg/dL Final Comment: NO NORMAL RANGE ESTABLISHED Testing performed at [facility];[address] [place] [address];[place] [address] Protein, Urine 10/15/2019 61 mg/dL Final Comment: NO NORMAL RANGE ESTABLISHED Testing performed at [facility];[address] [place] [address];[place] [address] WBC UA 10/15/2019 NONE SEEN 0 - 5 /hpf Final RBC UA 10/15/2019 NONE SEEN 0 - 5 /hpf Final SQUAMOUS EPITHELIAL UA 10/15/2019 >100 /lpf Final BACTERIA UA 10/15/2019 NONE SEEN NONE Final MUCUS UA 10/15/2019 1+ Final CASTS 10/15/2019 0-2 /lpf Final Comment: COARSE GRANULAR Testing Performed at [facility], [address], [address], [place] [address] No results found. Assessment Ms. Ramila Baxter [...] and coordination of care. CIERRA Hartley, MIKE [facility] Hematology Oncology 10/15/2019 Portions of this chart [...] [place] | | | | | | [phone] | | | | | | | | +--------+ + + + + | 11/26/ | Office | Oncology | Yancy Clifford MD | | | 2018 | Visit | | [address] | | | | | | [place] | | | | | | [address] | | | | | | | | | | | | Jennyfer Calvert | | | | | | [place] [address] | | | | | | [address] | | | | | | [place] [address] | | | | | | [phone] | | | | | | | | +--------+ + + + + | 11/26/ | Appointment | Infusion Therapy | Yancy Clifford MD | | | 2018 | | | [address] | | | | | | [place] | | | | | | [address] | | | | | | | | +--------+ + + + + | 12/17/ | Appointment | Infusion Therapy | Yancy Clifford MD | | | 2019 | | | [address] | | | | | | [place] | | | | | | [address] | | | | | | | | +--------+ + + + + | 12/17/ | Office | Oncology | Yancy Clifford MD | | | 2019 | Visit | | [address] | | | | | | [place] | | | | | | [address] | | | | | | | | +--------+ + + + + | 12/17/ | Appointment | Infusion Therapy | Yancy Clifford MD | | | 2019 | | | [address] | | | | | | [place] | | | | | | [address] | | | | | | | [...]
--- OUTSIDE RECORDS SUMMARY | ~2019-11-22 | XMS | Encounter Summary ---
Demographics + + + | Address | [address] | | | [place] [address] | + + + | Home Phone [...] | | | | [place] [address] | | + + + + + | Emory Larios | ECON | Unknown | | + + + + + Care Team Providers + +------+ + | Care Hot Walker Name | Role | Phone | + [...] | | | Ascites, | [place], | [place] [address] | | | | | malignant | [place] [address] | Phone: | | | | | Procedures | Phone: | [phone] | | | | | [place] | [phone] | Fax: | | | | | BEVACIZUMAB | Fax: | [phone] | | | | | INJECTION, | [phone] | | | | | | 10 MG [id number] | | | | | | | - [place] | | | | | | | [...] + + | 09/24/ | Hospital | [facility] | Yancy Clifford MD | Malignant neoplasm | | 2019 | Encounter | HEMATOLOGY AND | [address] | of left ovary (HCC) | | | | ONCOLOGY INFUSIONS | [place] | (Primary Dx); | | | | [address] | [address] | Ascites, malignant | | | | AVE [place], [place] | | | | | | [address] | | | | | | [phone] | | | +--------+ + + + [...] of this encounter Discharge Instructions Patient Instructions Anitha Mills RN - 09/24/2019 2:50 PM PDT Discharge Instructions for Chemotherapy Your healthcare provider [...] prevent mouth sores: Keep your mouth clean. [place] your teeth with a soft-bristle toothbrush after [...] baking soda to clean your mouth. M [id number] salt [id number] of baking soda in 1 quart of [...] begins to ooze Burning when you urinate [id number] (38C) tiffani pineda directed by your healthcare provider Date Last Reviewed: 04/01/201619993047-0671 [employer]. [address] [place] [address]. All righ ts reserved. This information is [...] as of this encounter Progress Notes Anitha Mills, RN - 09/24/2019 2:43 PM PDTPt here for C6 D1 Avastin. Seen by firo morgan and cleared for treatment. Pt's orders/protocol verified, along with Ht and Wt and BSA r echecked, doses reverified, all with second RN ( margaret ) before releasing to Pharmacy. Labs within parameters for treatment. VSS Distress Survey completed. Pt tolerated tx well. Reinforced calling for any concerns or questions. Discharged to [facility] with copy of labs and calendar for next appointment: documented in t his encounter Plan of [...] [place] | | | | | | [address] | | | | | | | | +--------+ + + + + | 11/26/ | Office | Oncology | Yancy Clfiford MD | | | 2018 | Visit | | [address] | | | | | | [place] | | | | | | [address] | | | | | | | | | | | | Jennyfer Calvert | | | | | | EVELINE LouP [address] | | | | | | [address] | | | | | | [place] [address] | | | | | | [phone] | | | | | | | | +--------+ + + + + | 11/26/ | Appointment | Infusion Therapy | Yancy Clifford MD | | | 2018 | | | [address] | | | | | | [place] | | | | | | [address] | | | | | | | | +--------+ + + + + | 12/17/ | Appointment | Infusion Therapy | Yancy Clifford MD | | | 2019 | | | [address] | | | | | | [place] | | | | | | [address] | | | | | | | | +--------+ + + + + | 12/17/ | Office | Oncology | Yancy Clifford MD | | | 2019 | Visit | | [address] | | | | | | [place] | | | | | | [address] | | | | | | | | +--------+ + + + + | 12/17/ | Appointment | Infusion Therapy | Yancy Clifford MD | | | 2019 | | | [address] | | | | | | [place] | | | | | | [address] | | | | | | | [...] (AVASTIN) 1,300 mg | New Bag | 09/24/20 | 1,300 mg | 304 | | | in sodium chloride 0.9% 152 mL | | 19 3:25 | | mL/hr | | | infusion 1,300 mg (rounded from | | PM PDT | | | | | 1,282.5 mg = 15 mg/kg | | | | | | | 85.5 kg Treatment plan recorded | | | | | | | weight), Intravenous, Administer | | | | | | | over 30 Minutes, ONCE, [facility] | | | | | | | 09/24/19 at 1510, For 1 dose | | | | | | + +---------+ + +-------+------+ +---+---+ | | | +---+---+ + +-------+ +-------+---+---+ | heparin 100 units/mL flush | Given | 09/24/20 | 500 | | | | injection 500 Units 500 Units (5 | | 19 3:54 | Units | | | | mL), Intracatheter, PRN, Line | | PM PDT | | | | | Care, Starting Teresa 09/24/19 at | | | | | | | 1452 | | | | | | + +-------+ +-------+---+---+ +---+---+ | | | +---+---+ documented in this encounter"
--- OUTSIDE RECORDS SUMMARY | ~2019-11-22 | XMS | Encounter Summary ---
Demographics + + + | Address | [address] | | | [place] [address] | + + + | Home Phone | | + + + | Preferred Language | Unknown | + + + | Marital Status | | + + + | Adventist Affiliation | Unknown | + + + [...] | | | | [place] [address] | | + + + + + | Emory Larios | EBENEZER | Unknown | | + + + + + Care Team Providers + +------+ + | Care Binder And Box Builder Name | Role | Phone | + [...] + + | 09/03/ | Office | [facility] | Yancy Clifford MD | Malignant neoplasm | | 2019 | Visit | HEMATOLOGY AND | [address] | of left ovary (HCC) | | | | ONCOLOGY [address] | [place] | (Primary Dx) | | | | [address] | [address] | | | | | [place] | | | | | | [address] | Jennyfer Calvert | | | | | [phone] | M, SPECIAL AGENT SE[employer]ET [employer]ICE [address] | [address] | | | | | | [place] [address] | | | | | | [phone] | | | | | | | [...] might be differ ent from the original. [facility] Hematology & Oncology Oncology Progress Note [...] 05/2017 Genetic Testing Negative genetic testing through [employer]. 07/2017 Surgery S/p debulking surgery. Final pathology [...] 35 U/mL Final Comment: THE [employer] ([employer]ER[employer]) ADVIA [employer] IMMUNOASSAY METHOD IS USED. RESULTS OBTAINED WITH DIFFERENT ASSAY METHODS OR KITS CANNOT BE USED INTERCHANGEABLY. Testing performed at [facility];[address];[place] [address] Ct Chest Abdomen Pelvis W Contrast Result [...] and coordination of care. CIERRA Hartley, MIKE [facility] Hematology Oncology 09/03/2019 Portions of this [...] [place] | | | | | | [address] | | | | | | | | +--------+ + + + + | 11/26/ | Office | Oncology | Yancy Clifford MD | | | 2018 | Visit | | [address] | | | | | | [place] | | | | | | [address] | | | | | | | | | | | | Jennyfer Calvert | | | | | | CarmineCIERRA [address] | [address] | | | | | | [place] [address] | | | | | | [phone] | | | | | | | | +--------+ + + + + | 11/26/ | Appointment | Infusion Therapy | Yancy Clifford MD | | | 2018 | | | [address] | | | | | | [place] | | | | | | [address] | | | | | | | | +--------+ + + + + | 12/17/ | Appointment | Infusion Therapy | Yancy Clifford MD | | | 2019 | | | [address] | | | | | | [place] | | | | | | [address] | | | | | | | | +--------+ + + + + | 12/17/ | Office | Oncology | Yancy Clifford MD | | | 2019 | Visit | | [address] | | | | | | [place] | | | | | | [address] | | | | | | | | +--------+ + + + + | 12/17/ | Appointment | Infusion Therapy | Yancy Clifford MD | | | 2020 | | | [address] | | | | | | [place] | | | | | | [address] | | | | | | | | +--------+ + + + + documented as of this encounter Visit Diagnoses + + | Diagnosis | + + | 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
--- OUTSIDE RECORDS SUMMARY | ~2019-11-22 | XMS | Encounter Summary ---
Demographics + + + | Address | [address] | | | [place] [address] | + + + | Home Phone | | + + + | Preferred Language | Unknown | + + + | Marital Status | | + + + | Scientologist Affiliation | Unknown | + + + | Race | Unknown | + + + | Ethnic Group | Unknown | + + + Author + + + | Author | [facility] | | | and [place] | + + + | Organization | [facility] | | [...] | | | | [place] [address] | | + + + + + | Emory Larios | ECON | Unknown | | + + + + + Care Team Providers + +------+ + | Care Clicking Machine Operator Name | Role | Phone | + +------+ + PCP | Unavailable | + +------+ + Encounter Details +--------+ + + + + | Date | Type | Department | Care Team | Description | +--------+ + + + + | 06/05/ | Hospital | [facility] | Conversion | Encounter for | | 2019 | Encounter | [facility] [address] | Transaction, | antineoplastic | | | | [address] | Provider Unknown | chemotherapy; | | | | [place], [place] | [phone] | Malignant neoplasm | | | | [address] | | of left ovary (HCC); | | | | [phone] | Yancy Clifford MD [address] | | | | [address] | 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; | | | | | [phone] | Epistaxis | | | | | [...] | | | 2018 | | | [address] | | | | | | [place] | | | | | | [address] | | | | | | | | +--------+ + + + + | 11/26/ | Office | Oncology | Yancy Clifford MD | | | 2018 | Visit | | [address] | | | | | | [place] | | | | | | [address] | | | | | | | | | | | | Jennyfer Calvert | | | | | | CIERRA Lou [address] | | | | [address] | | | | | | [place] [address] | | | | | | [phone] | | | | | | | | +--------+ + + + + | 11/26/ | Appointment | Infusion Therapy | Yancy Clifford MD | | | 2018 | | | [address] | | | | | | [place] | | | | | | [address] | | | | | | | | +--------+ + + + + | 12/17/ | Appointment | Infusion Therapy | Yancy Clifford MD | | | 2019 | | | [address] | | | | | | [place] | | | | | | [address] | | | | | | | | +--------+ + + + + | 12/17/ | Office | Oncology | Yancy Clifford MD | | | 2019 | Visit | | [address] | | | | | | [place] | | | | | | [address] | | | | | | | | +--------+ + + + + | 12/17/ | Appointment | Infusion Therapy | Yancy Clifford MD | | | 2019 | | | [address] | | | | | | [place] | | | | | | [address] | | | | | | | [...]
--- OUTSIDE RECORDS SUMMARY | ~2019-11-22 | XMS | Encounter Summary ---
Demographics + + + | Address | [address] | | | [place] [address] | + + + | Home Phone [...] | | | | [place] [address] | | + + + + + | Emory Larios | ECON | Unknown | | + + + + + Care Team Providers + +------+ + | Care Lean Sensei Name | Role | Phone | + [...] | | | Ascites, | [place], | [place] [address] | | | | | malignant | [place] [address] | Phone: | | | | | Procedures | Phone: | [phone] | | | | | CT | [phone] | Fax: | | | | | BEVACIZUMAB | Fax: | [phone] | | | | | INJECTION, | [phone] | | | | | | 10 MG [id number] | | | | | | | - CT | | | | | | | [...] + + | 09/03/ | Hospital | [facility] | Yancy Clifford MD | Malignant neoplasm | | 2019 | Encounter | HEMATOLOGY AND | [address] | of left ovary (HCC) | | | | ONCOLOGY INFUSIONS | [place], [place] | (Primary Dx); | | | | [address] | [address] | Ascites, malignant | | | | AVE [place], [place] | | | | | | [address] | Bhakti Godfrey RN | | | | | [phone] | | | +--------+ + + + [...] of this encounter Discharge Instructions Patient Instructions Bhakti Godfrey RN - 09/03/2019 9:32 AM PDT Bevacizumab injection Brand Name: Avastin What is this medicine? BEVACIZUMAB (be va SIZ patricia mab) is a monoclonal antibody. It is used to treat many types of cancer. How should I use this medicine? This medicine is for infusion into a vein. It is given by a health customer care coordinator in a h ospital or clinic setting. Talk to your cumulative effects analyst regarding the use of this medicine in children. Special care may be needed. What side effects may I notice from receiving this medicine? Side effects that you should report to your doctor or health customer care coordinator as soon as p ossible: allergic reactions [...] to your doctor or health customer care coordinator if they continue or are bothersome): back pain changes in taste decreased appetite dry skin nausea tiredness What may interact with this medicine? Interactions are not expected. What if I miss a dose? It is important not to miss your dose. Call your doctor or health customer care coordinator if you are unable to keep an [...] to your doctor or health customer care coordinator if you are concerned about your fertility. [...] documented as of this encounter Progress Notes Bhakti Godfrey RN - 09/03/2019 9:30 AM PDTPt here for C5D1 Avastin. Labs reviewed and pt c leared for treatment. Pt orders/protocol verified. Height, Weight, and BSA checked. Doses ve rified with second RN (Bailee) prior to releasing orders to pharmacy. Distress screening tool complete. Pt denies any concerns at this time. Pt tolerated chemotherapy without any issues. Updated schedule and copies of most recent la b results provided to pt. Pt discharged to home in stable condition. Pts next appt verified: Sep 24 09/24/2019 1330 - IVT LAB DRAW with CATRACHITO BOO SS LAB DRAW in [facility] INFUSION SUPPORT SERVICES 09/24/2019 1415 - Office Visit Extended appointment starts at 1430 with Yancy Clifford MD in [facility] HEMATOLOGY AND ONCOLOGY 09/24/2019 1500 - Onc Infusion with JAZZY CHAIR [address] [facility] HEMATOLOGY AND ONCOLOGY INFUSIONS documented in this enco unter Plan of [...] [place] | | | | | | [address] | | | | | | | | +--------+ + + + + | 11/26/ | Office | Oncology | Yancy Clifford MD | | | 2018 | Visit | | [address] | | | | | | [place] | | | | | | [address] | | | | | | | | | | | | Jennyfer Calvert | | | | | | Carmine [facility] [address] | | | | | [address] | | | | | | [place] [address] | | | | | | [phone] | | | | | | | | +--------+ + + + + | 11/26/ | Appointment | Infusion Therapy | Yancy Clifford MD | | | 2018 | | | [address] | | | | | | [place] | | | | | | [address] | | | | | | | | +--------+ + + + + | 12/17/ | Appointment | Infusion Therapy | Yancy Cilfford MD | | | 2019 | | | [address] | | | | | | [place] | | | | | | [address] | | | | | | | | +--------+ + + + + | 12/17/ | Office | Oncology | Yancy Clifford MD | | | 2019 | Visit | | [address] | | | | | | [place] | | | | | | [address] | | | | | | | | +--------+ + + + + | 12/17/ | Appointment | Infusion Therapy | Yancy Clifford MD | | | 2019 | | | [address] | | | | | | [place] | | | | | | [address] | | | | | | | [...] (AVASTIN) 1,300 mg | New Bag | 09/03/20 | 1,300 mg | 304 | | | in sodium chloride 0.9% 152 mL | | 19 9:54 | | mL/hr | | | infusion 1,300 mg (rounded from | | AM PDT | | | | | 1,282.5 mg = 15 mg/kg | | | | | | | 85.5 kg Treatment plan recorded | | | | | | | weight), Intravenous, Administer | | | | | | | over 30 Minutes, ONCE, [facility] | | | | | | | 09/03/19 at 0940, For 1 dose | | | | | | + +---------+ + +-------+------+ +---+---+ | | | +---+---+ + +-------+ +-------+---+---+ | heparin 100 units/mL flush | Given | 09/03/20 | 500 | | | | injection 500 Units 500 Units (5 | | 19 10:32 | Units | | | | mL), Intracatheter, PRN, Line | | AM PDT | | | | | Care, Starting Teresa 09/03/19 at | | | | | | | 0920 | | | | | | + +-------+ +-------+---+---+ +---+---+ | | | +---+---+ documented in this encounter"
--- OUTSIDE RECORDS SUMMARY | ~2019-11-22 | XMS | Encounter Summary ---
Demographics + + + | Address | [address] | | | [place] [address] | + + + | Home Phone [...] + | Author | [facility] | | | and [place] | + + + | Organization | [facility] | | | and [...] | | | | [place] [address] | | + + + + + | Emory Larios | ECON | Unknown | | + + + + + Care Team Providers + +------+ + | Care Duplicate Maker Name | Role | Phone | + [...] | | | Ascites, | [place], | [place] [address] | | | | | malignant | [place] [address] | Phone: | | | | | Procedures | Phone: | [phone] | | | | | [place] | [phone] | Fax: | | | | | BEVACIZUMAB | Fax: | [phone] | | | | | INJECTION, | [phone] | | | | | | 10 MG [id number] | | | | | | | - [place] | | | | | | | [...] + + | 07/23/ | Hospital | [facility] | Yancy Clifford MD | Malignant neoplasm | | 2019 | Encounter | HEMATOLOGY AND | [address] | of left ovary (HCC) | | | | ONCOLOGY INFUSIONS | [place] | (Primary Dx); | | | | [address] | [address] | Ascites, malignant | | | | AVE [place], [place] | | | | | | [address] | Yumiko Crocker, | | | | | [phone] | RN | | +--------+ + + [...] vein. It is given by a health home care and home health aides teacher in a h ospital or clinic setting. Talk to your apprentice regarding the use of this medicine in children. Special care may be needed. What side effects may I notice from receiving this medicine? Side effects that you should report to your doctor or health home care and home health aides teacher as soon as p ossible: allergic reactions [...] attention (report to your doctor or health home care and home health aides teacher if they continue or are bothersome): back pain changes in taste decreased appetite dry skin nausea tiredness What may interact with this medicine? Interactions are not expected. What if I miss a dose? It is important not to miss your dose. Call your doctor or health home care and home health aides teacher if you are unable to keep an [...] should talk to your doctor or health home care and home health aides teacher if you are concerned about your fertility. [...] encounter Progress Notes Yumiko Crocker RN - 07/23/2019 11:19 AM PDTPatient here [...] with CATRACHITO BOO SS LAB DRAW in [facility] INFUSION SUPPORT SERVICES 08/13/2019 0945 - Office Visit Extended with CIERRA Hartley in [facility] HEMATOLOGY AND ONCOLOGY 08/13/2019 1015 - Onc Infusion with [facility] 04 in [facility] HEMATOLOGY AND ONCOLOGY INFUSIONS 08/13/2019 1230 - Office Visit Regular appointment starts at 1240 with Scott Boswell MD in [facility] PULMONOLOGY 12:1 3 PM PDTdocumented in this [...] [place] | | | | | | [address] | | | | | | | | +--------+ + + + + | 11/26/ | Office | Oncology | Yancy Clifford MD | | | 2018 | Visit | | [address] | | | | | | [place] | | | | | | [address] | | | | | | | | | | | | Nehal Jennyfer | | | | | | Carmine, WASTEWATER 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 PLANT ATTENDANT [address] | [address] | | | | | | [place] [address] | | | | | | [phone] | | | | | | | | +--------+ + + + + | 11/26/ | Appointment | Infusion Therapy | Yancy Clifford MD | | | 2018 | | | [address] | | | | | | [place] | | | | | | [address] | | | | | | | | +--------+ + + + + | 12/17/ | Appointment | Infusion Therapy | Yancy Clifford MD | | | 2019 | | | [address] | | | | | | [place] | | | | | | [address] | | | | | | | | +--------+ + + + + | 12/17/ | Office | Oncology | Yancy Clifford MD | | | 2019 | Visit | | [address] | | | | | | [place] | | | | | | [address] | | | | | | | | +--------+ + + + + | 12/17/ | Appointment | Infusion Therapy | Yancy Clifford MD | | | 2019 | | | [address] | | | | | | [place] | | | | | | [address] | | | | | | | [...] | | | over 30 Minutes, ONCE, [facility] | | | | | | [...] | | | | | Care, Starting [facility] 07/23/19 at | | | | [...] | | | | | NS, Starting [facility] 07/23/19 at 1042 | | | | | | + +---------+ +---------+ +---+ +---+---+ | | | +---+---+ documented in this encounter"
--- OUTSIDE RECORDS SUMMARY | ~2019-11-22 | XMS | Encounter Summary ---
Demographics + + + | Address | [address] | | | [place] [address] | + + + | Home Phone | | + + + | Preferred Language | Unknown | + + + | Marital Status | | + + + | Mandaeism Affiliation | Unknown | + + + | Race | Unknown | + + + | Ethnic Group | Unknown | + + + Author + + + | Author | [facility] | | | and [place] | + + + | Organization | [facility] | | [...] | | | | [place] [address] | | + + + + + | Emory Larios | ECON | Unknown | | + + + + + Care Team Providers + +------+ + | Care Cupola Tapper Name | Role | Phone | + [...] Provider Unknown | | | | | [place], [place] | [phone] | | | | | [address] | | | | | | [phone] | | | +--------+ + + + [...] [place] | | | | | | [id number] | | | | | | | | +--------+ + + + + | 11/26/ | Office | Oncology | Yancy Clifford MD | | | 2018 | Visit | | [address] | | | | | | [place] | | | | | | [address] | | | | | | | | | | | | Jennyfer Calvert | | | | | | CIERRA Lou [address] | | | | | | [address] | | | | | | [place] [address] | | | | | | [phone] | | | | | | | | +--------+ + + + + | 11/26/ | Appointment | Infusion Therapy | Yancy Clifford MD | | | 2018 | | | [address] | | | | | | [place] | | | | | | [address] | | | | | | | | +--------+ + + + + | 12/17/ | Appointment | Infusion Therapy | Yancy Clifford MD | | | 2019 | | | [address] | | | | | | [place] | | | | | | [address] | | | | | | | | +--------+ + + + + | 12/17/ | Office | Oncology | Yancy Clifford MD | | | 2019 | Visit | | [address] | | | | | | [place] | | | | | | [address] | | | | | | | | +--------+ + + + + | 12/17/ | Appointment | Infusion Therapy | Yancy Clifford MD | | | 2019 | | | [address] | | | | | | [place] | | | | | | [address] | | | | | | | | +--------+ + + + + documented as of this encounter Visit Diagnoses Not on filedocumented in this encounter"
--- OUTSIDE RECORDS SUMMARY | ~2019-11-22 | XMS | Encounter Summary ---
Demographics + + + | Address | [address] | | | [place] [address] | + + + | Home Phone | | + + + | Preferred Language | Unknown | + + + | Marital Status | | + + + | Anabaptist Affiliation | Unknown | + + + | Race | Unknown | + + + | Ethnic Group | Unknown | + + + Author + + + | Author | [facility] | | | and [place] | + + + | Organization | [facility] | | | and [...] | | | | | [place] [address] | | + + + + + | Emory Larios | ECON | Unknown | | + + + + + Care Team Providers + +------+ + | Care Building Construction Superintendent Name | Role | Phone | + +------+ + PCP | Unavailable | + +------+ + Encounter Details +--------+ + + + + | Date | Type | Department | Care Team | Description | +--------+ + + + + | 06/29/ | Abstract | [facility] | Adriana Velasco | Malignant neoplasm | | 2019 | | HEMATOLOGY AND | A, METAL SPRAYER MACHINED PARTS | of left ovary (HCC); | | | | ONCOLOGY [address] | | Ascites, malignant | | | | [address] | | | | | | [place] | | | | | | [address] | | | | | | [phone] | | | +--------+ + + + [...] [place] | | | | | | [address] | | | | | | | | +--------+ + + + + | 11/26/ | Office | Oncology | Yancy Clifford MD | | | 2018 | Visit | | [address] | | | | | | [place] | | | | | | [address] | | | | | | | | | | | | Jennyfer Calvert | | | | | | CIERRA Lou [address] | | | | [address] | | | | | | [place] [address] | | | | | | [phone] | | | | | | | | +--------+ + + + + | 11/26/ | Appointment | Infusion Therapy | Yancy Clifford MD | | | 2018 | | | [address] | | | | | | [place] | | | | | | [address] | | | | | | | | +--------+ + + + + | 12/17/ | Appointment | Infusion Therapy | Yancy Clifford MD | | | 2019 | | | [address] | | | | | | [place] | | | | | | [address] | | | | | | | | +--------+ + + + + | 12/17/ | Office | Oncology | Yancy Clifford MD | | | 2019 | Visit | | [address] | | | | | | [place] | | | | | | [address] | | | | | | | | +--------+ + + + + | 12/17/ | Appointment | Infusion Therapy | Yancy Clifford MD | | | 2019 | | | [address] | | | | | | [place] | | | | | | [address] | | | | | | | | +--------+ + + + + documented as of this encounter Visit Diagnoses + + | Diagnosis | + + | Malignant neoplasm of left ovary (HCC) Malignant neoplasm of ovary | + + | Ascites, malignant Malignant ascites | + + documented in this encounter
--- OUTSIDE RECORDS SUMMARY | ~2019-11-22 | XMS | Encounter Summary ---
Demographics + + + | Address | [address] | | | [place] [address] | + + + | Home Phone | | + + + | Preferred Language | Unknown | + + + | Marital Status | | + + + | Anabaptism Affiliation | Unknown | + + + | Race | Unknown | + + + | Ethnic Group | Unknown | + + + Author + + + | Author | [facility] | | | and [place] | + + + | Organization | [facility] | | | and [...] | | | | [place] [address] | | + + + + + | Emory Larios | ECON | Unknown | | + + + + + Care Team Providers + +------+ + | Care Check Inspector Name | Role | Phone | + +------+ + | Shannan Deng | PCP | | + +------+ + Encounter Details +--------+ + + + + | Date | Type | Department | Care Team | Description | +--------+ + + + + | 07/23/ | Orders Only | [facility] | CrockerYumiko pichardo, | Malignant neoplasm | | 2019 | | HEMATOLOGY AND | RN | of left ovary (HCC) | | | | ONCOLOGY [address] | | (Primary Dx) | | | | [address] | | | | | | [place] | | | | | | [address] | | | | | | [phone] | | | +--------+ + + + [...] [place] | | | | | | [id number] | | | | | | | | +--------+ + + + + | 11/26/ | Office | Oncology | Yancy Clifford MD | | | 2019 | Visit | | [address] | | | | | | [place] | | | | | | [address] | | | | | | | | | | | | Jennyfer Calvert | | | | | | EVELINE LouP [address] | | | | | | [address] | | | | | | [place] [address] | | | | | | [phone] | | | | | | | | +--------+ + + + + | 11/26/ | Appointment | Infusion Therapy | Yancy Clifford MD | | | 2018 | | | [address] | | | | | | [place] | | | | | | [address] | | | | | | | | +--------+ + + + + | 12/17/ | Appointment | Infusion Therapy | Yancy Clifford MD | | | 2019 | | | [address] | | | | | | [place] | | | | | | [address] | | | | | | | | +--------+ + + + + | 12/17/ | Office | Oncology | Yancy Clifford MD | | | 2019 | Visit | | [address] | | | | | | [place] | | | | | | [address] | | | | | | | | +--------+ + + + + | 12/17/ | Appointment | Infusion Therapy | Yancy Clifford MD | | | 2020 | | | [address] | | | | | | [place] | | | | | | [address] | | | | | | | | +--------+ + + + + documented as of this encounter Visit Diagnoses + + | Diagnosis | + + | 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
--- OUTSIDE RECORDS SUMMARY | ~2019-11-22 | XMS | Encounter Summary ---
Demographics + + + | Address | [address] | | | [place] [address] | + + + | Home Phone | | + + + | Preferred Language | Unknown | + + + | Marital Status | | + + + | Alevism Affiliation | Unknown | + + + [...] | | | | [place] [address] | | + + + + + | Emory Larios | ECON | Unknown | | + + + + + Care Team Providers + +------+ + | Care Statement Services Representative Name | Role | Phone | + +------+ + | Shannan Deng | PCP | | + +------+ + Encounter Details +--------+ + + + + | Date | Type | Department | Care Team | Description | +--------+ + + + + | 09/03/ | Hospital | [facility] | Yancy Clifford MD | 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) | | | | SERVICES [address] | [place] | (Primary Dx) | | | | [address] [place] | [address] | | | | | [address] [place] [address] | | | | | | [address] | | | | | | [phone] | | | +--------+ + + + [...] | | | 2018 | | | [address] | | | | | | [place] | | | | | | [address] | | | | | | | | +--------+ + + + + | 11/26/ | Office | Oncology | Yancy Clifford MD | | | 2018 | Visit | | [address] | | | | | | [place] | | | | | | [address] | | | | | | | | | | | | Nehal, Jennyfer | | | | | | CarmineCIERRA [address] | | | | | | [address] | | | | | | [place] [address] | | | | | | [phone] | | | | | | | | +--------+ + + + + | 11/26/ | Appointment | Infusion Therapy | Yancy Clifford MD | | | 2018 | | | [address] | | | | | | [place] | | | | | | [address] | | | | | | | | +--------+ + + + + | 12/17/ | Appointment | Infusion Therapy | Yancy Clifford MD | | | 2019 | | | [address] | | | | | | [place] | | | | | | [address] | | | | | | | | +--------+ + + + + | 12/17/ | Office | Oncology | Yancy Clifford MD | | | 2019 | Visit | | [address] | | | | | | [place] | | | | | | [address] | | | | | | | | +--------+ + + + + | 12/17/ | Appointment | Infusion Therapy | Yancy Clifford MD | | | 2019 | | | [address] | | | | | | [place] | | | | | | [address] | | | | | | | [...] LAB | | | | Performed at [facility], [address] | | [facility] | | | | [place] | | LABORATORY | | | | [place] | | | | | | [address] | | | | + + + + + + + + | Specimen | + + | | + + + + + + + | Performing | Address | City/State/Zipcode | Phone Number | | Organization | | | | + + + + + | REFERENCE LAB | [address] [place] [address] | [place] [address] | [phone] | | [facility] | Blvd. | | | | LABORATORY | | | | + + + + + | REFERENCE LAB | [address] [place] [address] | [place] [address] | | | [facility] | Blvd. | [...] LAB | | | | performed at [facility];[address] | | [facility] | | | | [facility] | | LABORATORY | | | | Blvd;[place] [address] | | | | | | | | | | + + + + + + + + | Specimen | + + | | + + + + + + + | Performing | Address | City/State/Zipcode | Phone Number | | Organization | | | | + + + + + | REFERENCE LAB | [address] [place] [address] | [place] [address] | [phone] | | [facility] | Blvd. | | | | LABORATORY | | | | + + + + + | REFERENCE LAB | [address] [place] [address] | [place] [address] | | | [facility] | Blvd. | [...] | | | urine | performed at [facility];[address] | | [facility] | | | | [facility] | | LABORATORY | | | | Blvd;[place] [address] | | | | | | | | | | + + + + + + + + | Specimen | + + | | + + + + + + + | Performing | Address | City/State/Zipcode | Phone Number | | Organization | | | | + + + + + | REFERENCE LAB | [address] [facility] [address] | [place] [address] | [phone] | | [facility] | Blvd. | | | | LABORATORY | | | | + + + + + | REFERENCE LAB | [address] | [place] [address] | | | [facility] | Blvd. | [...] - 1.030 | REFERENCE | | | [place], | | | LAB | | | [...] | | LABORATORY | | | | [address] | | | | + + + + + + + + | Specimen | + + | | + + + + + + + | Performing | Address | City/State/Zipcode | Phone Number | | Organization | | | | + + + + + | REFERENCE LAB | [address] [place] [address] | [place] [address] | [phone] | | [facility] | Blvd. | | | | LABORATORY | | | | + + + + + | REFERENCE LAB | [address] [place] [address] | [place] [address] | | | [facility] | Blvd. | [...] | | | RATIO,URINE | performed at [facility];[address] | | LAB | | | | [place] | | [facility] | | | | Blvd;[place] [address] | | LABORATORY | | + + + + + + + + | Specimen | + + | | + + + + + + + | Performing | Address | City/State/Zipcode | Phone Number | | Organization | | | | + + + + + | REFERENCE LAB | [address] | [place] [address] | [phone] | | [facility] | Blvd. | | | | LABORATORY | | | | + + + + + | REFERENCE LAB | [address] [facility] | [place] [address] | | | [facility] | Blvd. | [...] [place] | | | | | | [place], [place] | | | | | | [address] | | | | + + + + + + + + | Specimen | + + | Blood | + + + + + + + | Performing | Address | City/State/Zipcode | Phone Number | | Organization | | | | + + + + + | REFERENCE LAB | [address] [place] [address] | [place] [address] | [phone] | | [facility] | Blvd. | | | | LABORATORY | | | | + + + + + | REFERENCE LAB | [address] [place] [address] | [place] [address] | | | [facility] | Blvd. | [...] | | LABORATORY | | | | [address] | | | | + + + + + + + + | Specimen | + + | Blood | + + + + + + + | Performing | Address | City/State/Zipcode | Phone Number | | Organization | | | | + + + + + | REFERENCE LAB | [address] [facility] | [place] [address] | [phone] | | [facility] | Blvd. | | | | LABORATORY | | | | + + + + + | REFERENCE LAB | [address] | [place] [address] | | | [facility] | Blvd. | [...]
--- OUTSIDE RECORDS SUMMARY | ~2019-11-22 | XMS | Encounter Summary ---
Demographics + + + | Address | [address] | | | [place] [address] | + + + | Home Phone | | + + + | Preferred Language | Unknown | + + + | Marital Status | | + + + | Latter Day Affiliation | Unknown | + + + | Race | Unknown | + + + | Ethnic Group | Unknown | + + + Author + + + | Author | [facility] | | | and [place] | + + + | Organization | [facility] | | | [...] | | | | [place] [address] | | + + + + + | Emory Larios | ECON | Unknown | | + + + + + Care Team Providers + +------+ + | Care Scheduler Name | Role | Phone | + [...] + + | 07/23/ | Office | [facility] | Yancy Clifford MD | 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 07/2017 Surgery S/p debulking surgery. Final pathology [...] Estimate 07/23/2019 ADEQUATE Final Testing Performed at [facility], [address], [address], [place] [address] Na 07/23/2019 140 135 - 145 mmol/L [...] MDRD IDMS traceable equation. Testing Performed at [facility], [address], [address], [place] [address] Color, UA 07/23/2019 YELLOW Final Clarity, UA 07/23/2019 CLEAR Final Specific [place], Urine 07/23/2019 1.025 1.002 - 1.030 Final [...] NEGATIVE NEG mg/dL Final Testing Performed at [facility], [address], [address], [place] [address] WBC UA 07/23/2019 0-2 0 - 5 /hpf Final RBC UA 07/23/2019 NONE SEEN 0 - 5 /hpf Final SQUAMOUS EPITHELIAL UA 07/23/2019 6-10 /lpf Final BACTERIA UA 07/23/2019 NONE SEEN NONE Final MUCUS UA 07/23/2019 1+ Final Testing Performed at [facility], [address], [address], [place] [address] PRO/CREA RATIO,URINE 07/23/2019 0.320 Final Testing performed at [facility];[address] [facility];[place] [address] Creatinine, random urine 07/23/2019 172.0 mg/dL Final Comment: NO NORMAL RANGE ESTABLISHED Testing performed at [facility];[address] [facility];[place] [address] Protein, Urine 07/23/2019 55 mg/dL Final Comment: NO NORMAL RANGE ESTABLISHED Testing performed at [facility];[address] [facility];[place] [address] Imaging: Assessment: ECO 59 yo lady with [...] examining the patient, review of medical records, student counsellor ing, coordination of care, and CPOE. More [...] [place] | | | | | | [address] | | | | | | | | +--------+ + + + + | 11/26/ | Office | Oncology | Yancy Clifford MD | | | 2018 | Visit | | [address] | | | | | | [place] | | | | | | [address] | | | | | | | | | | | | Jennyfer Calvert | | | | | | Carmine [facility] [address] | | | | | | [address] | | | | | | [place] [address] | | | | | | [phone] | | | | | | | | +--------+ + + + + | 11/26/ | Appointment | Infusion Therapy | Yancy Clifford MD | | | 2018 | | | [address] | | | | | | [place] | | | | | | [address] | | | | | | | | +--------+ + + + + | 12/17/ | Appointment | Infusion Therapy | Yancy Clifford MD | | | 2019 | | | [address] | | | | | | [place] | | | | | | [address] | | | | | | | | +--------+ + + + + | 12/17/ | Office | Oncology | Yancy Clifford MD | | | 2019 | Visit | | [address] | | | | | | [place] | | | | | | [address] | | | | | | | | +--------+ + + + + | 12/17/ | Appointment | Infusion Therapy | Yancy Clifford MD | | | 2019 | | | [address] | | | | | | [place], [place] | | | | | | [address] | | | | | | | [...] LAB | | | | performed at [facility];[address] | | [facility] | | | | [facility] | | LABORATORY | | | | Blvd;[place] [address] | | | | | | | | | | + + + + + + + + | Specimen | + + | | + + + + + + + | Performing | Address | City/State/Zipcode | Phone Number | | Organization | | | | + + + + + | REFERENCE LAB | [address] [place] [address] | [place] [address] | [phone] | | [facility] | Blvd. | | | | LABORATORY | | | | + + + + + | REFERENCE LAB | [address] [place] [address] | [place] [address] | | | [facility] | Blvd. | [...] | | | urine | performed at [facility];[address] | | [facility] | | | | [place] | | LABORATORY | | | | Blvd;[place] [address] | | | | | | | | | | + + + + + + + + | Specimen | + + | | + + + + + + + | Performing | Address | City/State/Zipcode | Phone Number | | Organization | | | | + + + + + | REFERENCE LAB | [address] [facility] | [place] [address] | [phone] | | [facility] | Blvd. | | | | LABORATORY | | | | + + + + + | REFERENCE LAB | [address] [facility] | [place] [address] | | | [facility] | Blvd. | [...] | | | RATIO,URINE | performed at [facility];[address] | | LAB | | | | [place] | | [facility] | | | | Blvd;[place] [address] | | LABORATORY | | + + + + + + + + | Specimen | + + | | + + + + + + + | Performing | Address | City/State/Zipcode | Phone Number | | Organization | | | | + + + + + | REFERENCE LAB | [address] [facility] | [place] [address] | [phone] | | [facility] | Blvd. | | | | LABORATORY | | | | + + + + + | REFERENCE LAB | [address] [facility] | [place] [address] | | | [facility] | Blvd. | [...] REFERENCE | | | | Performed at [facility], [address] | | LAB | | | | [address] | | [facility] | | | | [address], [place] | | LABORATORY | | | | [address] | | | | + + + + + + + + | Specimen | + + | | + + + + + + + | Performing | Address | City/State/Zipcode | Phone Number | | Organization | | | | + + + + + | REFERENCE LAB | [address] [place] [address] | [place] [address] | [phone] | | [facility] | Blvd. | | | | LABORATORY | | | | + + + + + | REFERENCE LAB | [address] [place] [address] | [place] [address] | | | [facility] | Blvd. | [...] - 1.030 | REFERENCE | | | [place], | | | LAB | | | [...] | [facility] | | | | [address], [place] | | LABORATORY | | | | [address] | | | | + + + + + + + + | Specimen | + + | | + + + + + + + | Performing | Address | City/State/Zipcode | Phone Number | | Organization | | | | + + + + + | REFERENCE LAB | [address] [facility] | [place] [address] | [phone] | | [facility] | Blvd. | | | | LABORATORY | | | | + + + + + | REFERENCE LAB | [address] [facility] | [place] [address] | | | [facility] | Blvd. | [...] [place] | | | | | | [address] | | | | + + + + + + + + | Specimen | + + | | + + + + + + + | Performing | Address | City/State/Zipcode | Phone Number | | Organization | | | | + + + + + | REFERENCE LAB | [address] [place] [address] | [place] [address] | [phone] | | [facility] | Blvd. | | | | LABORATORY | | | | + + + + + | REFERENCE LAB | [address] [place] [address] | [place] [address] | | | [facility] | Blvd. | [...] | | | Estimate | Performed at [facility], [address] | | LAB | | | | [address] | | [facility] | | | | [address], [place] | | LABORATORY | | | | [address] | | | | + + + + + + + + | Specimen | + + | | + + + + + + + | Performing | Address | City/State/Zipcode | Phone Number | | Organization | | | | + + + + + | REFERENCE LAB | [address] [facility] | [place] [address] | [phone] | | [facility] | Blvd. | | | | LABORATORY | | | | + + + + + | REFERENCE LAB | [address] | [place] [address] | | | [facility] | Blvd. | [...]
--- OUTSIDE RECORDS SUMMARY | ~2019-11-22 | XMS | Encounter Summary ---
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 female. Referring [...] 05/2017 Genetic Testing Negative genetic testing through [employer]. 07/2017 Surgery S/p debulking surgery. Final pathology [...] [facility];[address] [facility];[place] [address] WBC 11/05/2019 7.80 3.80 - 11.00 K/uL [...] [facility], [address], [address], [place] [address] PRO/CREA RATIO,URINE 11/05/2019 0.561 Final Testing performed at [facility];[address] [facility];[place] [address] Color, UA 11/05/2019 YELLOW Final Clarity, UA 11/05/2019 CLEAR Final Specific [place], Urine 11/05/2019 1.025 1.002 - 1.030 Final [...] [facility], [address], [address], [place] [address] Creatinine, random urine 11/05/2019 157.0 mg/dL Final Comment: NO NORMAL RANGE ESTABLISHED Testing performed at [facility];[address] [place] [address];[place] [address] Protein, Urine 11/05/2019 88 mg/dL Final Comment: NO NORMAL RANGE ESTABLISHED Testing performed at [facility];[address] [place] [address];[place] [address] WBC UA 11/05/2019 1-5 0 - 5 /hpf Final RBC UA 11/05/2019 0-2 0 - 5 /hpf Final SQUAMOUS EPITHELIAL UA 11/05/2019 50-100 /lpf Final BACTERIA UA 11/05/2019 2+* NONE Final MUCUS UA 11/05/2019 2+ Final CASTS 11/05/2019 1-5 /lpf Final Comment: HYALINE 0-2 FINE GRANULAR Testing Performed at [facility], [address] [facility] [address], [place] [address] Orders Only on 11/05/2019 Component Date Value Ref Range Status CA125 11/05/2019 44.6* 0 - 35 U/mL Final Comment: THE [facility] (FORMERLY [facility]) ADVIA CENTAUR IMMUNOASSAY METHOD IS USED. RESULTS OBTAINED WITH DIFFERENT ASSAY METHODS OR KITS CANNOT BE USED INTERCHANGEABLY. Testing performed at [facility];[address] [place] [address];[place] [address] Results for RAMILA BAXTER ( ) as of 11/08/2019 20:33 [...] examining the patient, review of medical records, residential youth counselor ing, coordination of care, and CPOE. More than 50% of that time was spent in direct contact with the patient. [facility] Plan of Treatment +--------+ + + + + | Date | Type | Specialty | Care Team | Description | +--------+ + + + + | 11/26/ | Appointment | Infusion Therapy | Yancy Clifford MD | | | 2018 | | | [address] | | | | | | [place] | | | | | | [address] | | | | | | | | +--------+ + + + + | 11/26/ | Office | Oncology | Yancy Clifford MD | | | 2018 | Visit | | [address] | | | | | | [place] | | | | | | [address] | | | | | | | | | | | | Jennyfer [address] | | | | | | [place] LouP [address] | | | | | | [address] | | | | | | [place] [address] | | | | | | [phone] | | | | | | | | +--------+ + + + + | 11/26/ | Appointment | Infusion Therapy | Yancy Clifford MD | | | 2018 | | | [address] | | | | | | [place] | | | | | | [address] | | | | | | | | +--------+ + + + + | 12/17/ | Appointment | Infusion Therapy | Yancy Clifford MD | | | 2019 | | | [address] | | | | | | [place] | | | | | | [address] | | | | | | | | +--------+ + + + + | 12/17/ | Office | Oncology | Yancy Clifford MD | | | 2019 | Visit | | [address] | | | | | | [place] | | | | | | [address] | | | | | | | | +--------+ + + + + | 12/17/ | Appointment | Infusion Therapy | Yancy Clifford MD | | | 2019 | | | [address] | | | | | | [place] | | | | | | [address] | | | | | | | [...]
--- OUTSIDE RECORDS SUMMARY | ~2019-11-22 | XMS | Encounter Summary ---
Demographics + + + | Address | [address] | | | [place] [address] | + + + | Home Phone | | + + + | Preferred Language | Unknown | + + + | Marital Status | | + + + | Jainism Affiliation | Unknown | + + + [...] | | | | [place] [address] | | + + + + + | Emory Larios | ECON | Unknown | | + + + + + Care Team Providers + +------+ + | Care Floor Coverings Salesperson Name | Role | Phone | + +------+ + PCP | Unavailable | + +------+ + Encounter Details +--------+ + + + + | Date | Type | Department | Care Team | Description | +--------+ + + + + | 01/01/ | Hospital | [facility] | Conversion | Constipation, | | 2019 | Encounter | [facility] [address] | Transaction, | unspecified | | | | [address] | Provider Unknown | constipation type; | | | | [place], [place] | [phone] | Malignant neoplasm | | | | [address] | | of left ovary (HCC); | | | | [phone] | Yancy Clifford MD [address] | Pleural effusion, | | | | | [address] | malignant | | | | | [place] [address] | | | | | | [phone] | | | | | | | [...] [place] | | | | | | [id number] | | | | | | | [...] | | | | | [place] [address] | | | | | | [phone] | | | | | | | | +--------+ + + + + | 11/26/ | Appointment | Infusion Therapy | Yancy Clifford MD | | | 2018 | | | [address] | | | | | | [place] | | | | | | [address] | | | | | | | | +--------+ + + + + | 12/17/ | Appointment | Infusion Therapy | Yancy Clifford MD | | | 2019 | | | [address] | | | | | | [place] | | | | | | [address] | | | | | | | | +--------+ + + + + | 12/17/ | Office | Oncology | Yancy Clifford MD | | | 2019 | Visit | | [address] | | | | | | [place] | | | | | | [id number] | | | | | | | | +--------+ + + + + | 12/17/ | Appointment | Infusion Therapy | Yancy Clifford MD | | | 2019 | | | [address] | | | | | | [place] | | | | | | [id number] | | | | | | | [...] Signed by: | | | Rafal Em Date/Time: 01/01/2019 3:01 PM | | + [...]
--- OUTSIDE RECORDS SUMMARY | ~2019-11-22 | XMS | Encounter Summary ---
Demographics + + + | Address | [address] [facility] [address] | | | [place] [address] | + + + | Home Phone [...] | | | | | [place] [address] | | + + + + + | Emory Larios | ECON | Unknown | | + + + + + Care Team Providers + +------+ + | Care Battery Inspector Name | Role | Phone | + +------+ + PCP | Unavailable | + +------+ + Encounter Details +--------+ + + + + | Date | Type | Department | Care Team | Description | +--------+ + + + + | 07/02/ | Orders Only | [facility] | Yancy Clifford MD | | | 2018 | | INFUSION SUPPORT | [address] | | | | | SERVICES [address] | [place] | | | | | [address] [place] | [address] | | | | | [address] [place] | | | | | | [address] | | | | | | [phone] | | | +--------+ + + + [...] 07/02/19 1305 Encounter Date: 07/02/2019 Status: Signed Swager Operator: Laila Jones RN (Registered Nurse) [place] [...] [place] | | | | | | [address] | | | | | | | | | | | | [address] | | | | | | [address]RA [address] | | | | | [address] | | | | | | [place] [address] | | | | | | [phone] | | | | | | | | +--------+ + + + + | 11/26/ | Appointment | Infusion Therapy | Yancy Clifford MD | | | 2018 | | | [address] | | | | | | [place] | | | | | | [address] | | | | | | | | +--------+ + + + + | 12/17/ | Appointment | Infusion Therapy | Yancy Clifford MD | | | 2019 | | | [address] | | | | | | [place] | | | | | | [address] | | | | | | | | +--------+ + + + + | 12/17/ | Office | Oncology | Yancy Clifford MD | | | 2019 | Visit | | [address] | | | | | | [place] | | | | | | [address] | | | | | | | | +--------+ + + + + | 12/17/ | Appointment | Infusion Therapy | Yancy Clifford MD | | | 2019 | | | [address] | | | | | | [place] | | | | | | [address] | | | | | | | [...] - 1.030 | EXTERNAL | | | [place] | | | LAB | | + [...]
--- OUTSIDE RECORDS SUMMARY | ~2019-11-22 | XMS | Encounter Summary ---
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 07/2017 Surgery S/p debulking surgery. Final pathology [...] Estimate 07/23/2019 ADEQUATE Final Testing Performed at [facility], [address], [address], [place] [address] Na 07/23/2019 140 135 - 145 mmol/L [...] MDRD IDMS traceable equation. Testing Performed at [facility], [address], [address], [place] [address] Color, UA 07/23/2019 YELLOW Final Clarity, UA 07/23/2019 CLEAR Final Specific [place], Urine 07/23/2019 1.025 1.002 - 1.030 Final [...] NEGATIVE NEG mg/dL Final Testing Performed at [facility], [address], [address], [place] [address] WBC UA 07/23/2019 0-2 0 - 5 /hpf Final RBC UA 07/23/2019 NONE SEEN 0 - 5 /hpf Final SQUAMOUS EPITHELIAL UA 07/23/2019 6-10 /lpf Final BACTERIA UA 07/23/2019 NONE SEEN NONE Final MUCUS UA 07/23/2019 1+ Final Testing Performed at [facility], [address], [address], [place] [address] PRO/CREA RATIO,URINE 07/23/2019 0.320 Final Testing performed at [facility];[address] [facility];[place] [address] Creatinine, random urine 07/23/2019 172.0 mg/dL Final Comment: NO NORMAL RANGE ESTABLISHED Testing performed at [facility];[address] [facility];[place] [address] Protein, Urine 07/23/2019 55 mg/dL Final Comment: NO NORMAL RANGE ESTABLISHED Testing performed at [facility];[address] [facility];[place] [address] Imaging: Assessment: ECO 59 yo lady with [...] examining the patient, review of medical records, counselling psychologist ing, coordination of care, and CPOE. More [...] [place] | | | | | | [address] | | | | | | | | +--------+ + + + + | 11/26/ | Office | Oncology | Yancy Clifford MD | | | 2018 | Visit | | [address] | | | | | | [place] | | | | | | [address] | | | | | | | | | | | | [address] | | | | | | Carmine [facility] [address] | | | | | | [address] | | | | | | [place] [address] | | | | | | [phone] | | | | | | | | +--------+ + + + + | 11/26/ | Appointment | Infusion Therapy | Yancy Clifford MD | | | 2018 | | | [address] | | | | | | [place] | | | | | | [address] | | | | | | | | +--------+ + + + + | 12/17/ | Appointment | Infusion Therapy | Yancy Clifford MD | | | 2019 | | | [address] | | | | | | [place] | | | | | | [address] | | | | | | | | +--------+ + + + + | 12/17/ | Office | Oncology | Yancy Clifford MD | | | 2019 | Visit | | [address] | | | | | | [place] | | | | | | [address] | | | | | | | | +--------+ + + + + | 12/17/ | Appointment | Infusion Therapy | Yancy Clifford MD | | | 2019 | | | [address] | | | | | | [place], [place] | | | | | | [address] | | | | | | | [...] LAB | | | | performed at [facility];[address] | | [facility] | | | | [facility] | | LABORATORY | | | | Blvd;[place] [address] | | | | | | | | | | + + + + + + + + | Specimen | + + | | + + + + + + + | Performing | Address | City/State/Zipcode | Phone Number | | Organization | | | | + + + + + | REFERENCE LAB | [address] [place] [address] | [place] [address] | [phone] | | [facility] | Blvd. | | | | LABORATORY | | | | + + + + + | REFERENCE LAB | [address] [place] [address] | [place] [address] | | | [facility] | Blvd. | [...] | | | urine | performed at [facility];[address] | | [facility] | | | | [place] | | LABORATORY | | | | Blvd;[place] [address] | | | | | | | | | | + + + + + + + + | Specimen | + + | | + + + + + + + | Performing | Address | City/State/Zipcode | Phone Number | | Organization | | | | + + + + + | REFERENCE LAB | [address] [facility] | [place] [address] | [phone] | | [facility] | Blvd. | | | | LABORATORY | | | | + + + + + | REFERENCE LAB | [address] [facility] | [place] [address] | | | [facility] | Blvd. | [...] | | | RATIO,URINE | performed at [facility];[address] | | LAB | | | | [place] | | [facility] | | | | Blvd;[place] [address] | | LABORATORY | | + + + + + + + + | Specimen | + + | | + + + + + + + | Performing | Address | City/State/Zipcode | Phone Number | | Organization | | | | + + + + + | REFERENCE LAB | [address] [facility] | [place] [address] | [phone] | | [facility] | Blvd. | | | | LABORATORY | | | | + + + + + | REFERENCE LAB | [address] [facility] | [place] [address] | | | [facility] | Blvd. | [...] REFERENCE | | | | Performed at [facility], [address] | | LAB | | | | [address] | | [facility] | | | | [address], [place] | | LABORATORY | | | | [address] | | | | + + + + + + + + | Specimen | + + | | + + + + + + + | Performing | Address | City/State/Zipcode | Phone Number | | Organization | | | | + + + + + | REFERENCE LAB | [address] [place] [address] | [place] [address] | [phone] | | [facility] | Blvd. | | | | LABORATORY | | | | + + + + + | REFERENCE LAB | [address] [place] [address] | [place] [address] | | | [facility] | Blvd. | [...] - 1.030 | REFERENCE | | | [place], | | | LAB | | | [...] [facility] | | | | [address], [place] | | LABORATORY | | | | [address] | | | | + + + + + + + + | Specimen | + + | | + + + + + + + | Performing | Address | City/State/Zipcode | Phone Number | | Organization | | | | + + + + + | REFERENCE LAB | [address] [facility] | [place] [address] | [phone] | | [facility] | Blvd. | | | | LABORATORY | | | | + + + + + | REFERENCE LAB | [address] [facility] | [place] [address] | | | [facility] | Blvd. | [...] [place] | | | | | | [address] | | | | + + + + + + + + | Specimen | + + | | + + + + + + + | Performing | Address | City/State/Zipcode | Phone Number | | Organization | | | | + + + + + | REFERENCE LAB | [address] [place] [address] | [place] [address] | [phone] | | [facility] | Blvd. | | | | LABORATORY | | | | + + + + + | REFERENCE LAB | [address] [place] [address] | [place] [address] | | | [facility] | Blvd. | [...] | | | Estimate | Performed at [facility], [address] | | LAB | | | | [address] | | [facility] | | | | [address], [place] | | LABORATORY | | | | [address] | | | | + + + + + + + + | Specimen | + + | | + + + + + + + | Performing | Address | City/State/Zipcode | Phone Number | | Organization | | | | + + + + + | REFERENCE LAB | [address] [facility] | [place] [address] | [phone] | | [facility] | Blvd. | | | | LABORATORY | | | | + + + + + | REFERENCE LAB | [address] | [place] [address] | | | [facility] | Blvd. | [...]
--- OUTSIDE RECORDS SUMMARY | ~2019-11-22 | XMS | Encounter Summary ---
Demographics + + + | Address | [address] [facility] [address] | | | [place] [address] | + + + | Home Phone [...] | | | | | [place] [address] | | + + + + + | Emory Larios | ECON | Unknown | | + + + + + Care Team Providers + +------+ + | Care Critical Power Install Technician Name | Role | Phone | + +------+ + PCP | Unavailable | + +------+ + Encounter Details +--------+ + + + + | Date | Type | Department | Care Team | Description | +--------+ + + + + | 01/15/ | Orders Only | [facility] | Yancy Clifford MD | | | 2019 | | HEMATOLOGY AND | [address] | | | | | ONCOLOGY INFUSIONS | [place], [place] | | | | | [address] | [address] | | | | | [address] [place], [place] | | | | | | [address] | | | | | | [phone] | | | +--------+ + + + [...] [place] | | | | | | [address] | | | | | | | | +--------+ + + + + | 11/26/ | Office | Oncology | Yancy Clifford MD | | | 2018 | Visit | | [address] | | | | | | [place] | | | | | | [address] | | | | | | | | | | | | Jennyfer [address] | | | | | | [place] [address] | | | | | | [address] | | | | | | [place] [address] | | | | | | [phone] | | | | | | | | +--------+ + + + + | 11/26/ | Appointment | Infusion Therapy | Yancy Clifford MD | | | 2018 | | | [address] | | | | | | [place] | | | | | | [address] | | | | | | | | +--------+ + + + + | 12/17/ | Appointment | Infusion Therapy | Yancy Clifford MD | | | 2019 | | | [address] | | | | | | [place] | | | | | | [address] | | | | | | | | +--------+ + + + + | 12/17/ | Office | Oncology | Yancy Clifford MD | | | 2019 | Visit | | [address] | | | | | | [place] | | | | | | [address] | | | | | | | | +--------+ + + + + | 12/17/ | Appointment | Infusion Therapy | Yancy Clifford MD | | | 2019 | | | [address] | | | | | | [place] | | | | | | [address] | | | | | | | [...] EXTERNAL | | | | [facility]) | | LAB | | | | [...]
--- OUTSIDE RECORDS SUMMARY | ~2019-11-22 | XMS | Encounter Summary ---
Demographics + + + | Address | [address] [facility] [address] | | | [place] [address] | + + + | Home Phone | | + + + | Preferred Language | Unknown | + + + | Marital Status | | + + + | Episcopalian Affiliation | Unknown | + + + | Race | Unknown | + + + | Ethnic Group | Unknown | + + + Author + + + | Author | [facility] | | | and [place] | + + + | Organization | [facility] | | | [...] | | | | [place] [address] | | + + + + + | Emory Larios | ECON | Unknown | | + + + + + Care Team Providers + +------+ + | Care Claims Correspondence Clerk Name | Role | Phone | + +------+ + PCP | Unavailable | + +------+ + Encounter Details +--------+ + + + + | Date | Type | Department | Care Team | Description | +--------+ + + + + | 07/08/ | Hospital | [facility] | Conversion | Chronic deep vein | | 2018 | Encounter | [facility] | Transaction, | thrombosis (DVT) of | | | | ULTRASOUND [address] | Provider Unknown | other vein of right | | | | [address] | [phone] | upper extremity | | | | [place], [place] | | (HCC); 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 docume nted [...] [place] | | | | | | [address] | | | | | | | | +--------+ + + + + | 11/26/ | Office | Oncology | Yancy Clifford MD | | | 2018 | Visit | | [address] | | | | | | [place] | | | | | | [address] | | | | | | | | | | | | [address] | | | | | | [place] [address] | | | | | | [address] | | | | | | [place] [address] | | | | | | [phone] | | | | | | | | +--------+ + + + + | 11/26/ | Appointment | Infusion Therapy | Yancy Clifford MD | | | 2018 | | | [address] | | | | | | [place] | | | | | | [address] | | | | | | | | +--------+ + + + + | 12/17/ | Appointment | Infusion Therapy | Yancy Clifford MD | | | 2019 | | | [address] | | | | | | [place] | | | | | | [address] | | | | | | | | +--------+ + + + + | 12/17/ | Office | Oncology | Yancy Clifford MD | | | 2019 | Visit | | [address] | | | | | | [place] | | | | | | [address] | | | | | | | | +--------+ + + + + | 12/17/ | Appointment | Infusion Therapy | Yancy Clifford MD | | | 2019 | | | [address] | | | | | | [place] | | | | | | [address] | | | | | | | [...] At | + + + | [facility] [place] VEE 1960 US UPPER EXTREMITY VENOUS DOPPLER RIGHT [...] Procedure Note | + + | Chi, Chris Conversion - 07/15/2019 9:49 AM PDT E[facility] [...]
--- OUTSIDE RECORDS SUMMARY | ~2019-11-22 | XMS | Encounter Summary ---
Demographics + + + | Address | [address] [facility] [address] | | | [place] [address] | + + + | Home Phone | | + + + | Preferred Language | Unknown | + + + | Marital Status | | + + + | Baptist Affiliation | Unknown | + + + [...] | | | | [place] [address] | | + + + + + | Emory Larios | ECON | Unknown | | + + + + + Care Team Providers + +------+ + | Care Microwave Radio Technician Name | Role | Phone | + +------+ + | Shannan Deng | PCP | | + +------+ + Encounter Details +--------+ + + + + | Date | Type | Department | Care Team | Description | +--------+ + + + + | 12/25/ | Orders Only | [facility] | Yancy Clifford MD | | | 2019 | | HEMATOLOGY AND | [address] | | | | | ONCOLOGY [address] | [place] | | | | | [address] | [address] | | | | | [place] | | | | | | [address] | | | | | | [phone] | | | +--------+ + + + [...] [place] | | | | | | [address] | | | | | | | | +--------+ + + + + | 11/26/ | Office | Oncology | Yancy Clifford MD | | | 2018 | Visit | | [address] | | | | | | [place] | | | | | | [address] | | | | | | | | | | | | Jenny[address] | | | | | | [place] [address] | | | | | | [address] | | | | | | [place] [address] | | | | | | [phone] | | | | | | | | +--------+ + + + + | 11/26/ | Appointment | Infusion Therapy | Yancy Clifford MD | | | 2018 | | | [address] | | | | | | [place] | | | | | | [address] | | | | | | | | +--------+ + + + + | 12/17/ | Appointment | Infusion Therapy | Yancy Clifford MD | | | 2019 | | | [address] | | | | | | [place] | | | | | | [address] | | | | | | | | +--------+ + + + + | 12/17/ | Office | Oncology | Yancy Clifford MD | | | 2019 | Visit | | [address] | | | | | | [place] | | | | | | [address] | | | | | | | | +--------+ + + + + | 12/17/ | Appointment | Infusion Therapy | Yancy Clifford MD | | | 2020 | | | [address] | | | | | | [place] | | | | | | [address] | | | | | | | | +--------+ + + + + documented as of this encounter Visit Diagnoses Not on filedocumented in this encounter"
--- OUTSIDE RECORDS SUMMARY | ~2019-11-22 | XMS | Encounter Summary ---
Demographics + + + | Address | [address] [facility] [address] | | | [place] [address] | + + + | Home Phone [...] | | | | | [place] [address] | | + + + + + | Emory Larios | ECON | Unknown | | + + + + + Care Team Providers + +------+ + | Care Power Nut Runner Operator Name | Role | Phone | + +------+ + PCP | Unavailable | + +------+ + Encounter Details +--------+ + + + + | Date | Type | Department | Care Team | Description | +--------+ + + + + | 06/11/ | Orders Only | [facility] | Yancy Clifford MD | | | 2018 | | INFUSION SUPPORT | [address] | | | | | SERVICES [address] | [place], [place] | | | | | [address] [place] | [address] | | | | | [address] [place] | | | | | | [address] | | | | | | [phone] | | | +--------+ + + + [...] Notes by Sushma Mcfarlane RN at 06/11/19 1936 Author: Sushma Mcfarlane RN Service: (none) Author Type: Registered Nurse Filed: 06/11/19 1337 Encounter Date: 06/11/2019 Status: Signed Emu Farmer: Sushma Mcfarlane RN (Registered Nurse) Port accessed [...] | | | | | [place] [address] | | | | | | [phone] | | | | | | | | +--------+ + + + + | 11/26/ | Appointment | Infusion Therapy | Yancy Clifford MD | | | 2018 | | | [address] | | | | | | [place] | | | | | | [address] | | | | | | | | +--------+ + + + + | 12/17/ | Appointment | Infusion Therapy | Yancy Clifford MD | | | 2019 | | | [address] | | | | | | [place] | | | | | | [address] | | | | | | | | +--------+ + + + + | 12/17/ | Office | Oncology | Yancy Clifford MD | | | 2019 | Visit | | [address] | | | | | | [place] | | | | | | [address] | | | | | | | | +--------+ + + + + | 12/17/ | Appointment | Infusion Therapy | Yancy Clifford MD | | | 2020 | | | [address] | | | | | | [place] | | | | | | [address] | | | | | | | [...] - 1.030 | EXTERNAL | | | [place] | | | LAB | | + [...]
--- OUTSIDE RECORDS SUMMARY | ~2019-11-22 | XMS | Clinical Summary ---
Demographics + + + | Address | [address] | | | [place] [address] | + + + | Home Phone | | + + + | Preferred Language | Unknown | + + + | Marital Status | | + + + | Caodaism Affiliation | Unknown | + + + | Race | Unknown | + + + | Ethnic Group | Unknown | + + + Author + + + | Author | [facility] | | | and [place] | + + + | Organization | [facility] | | [...] | | | | [place] [address] | | + + + + + | Emory Larios | ECON | Unknown | | + + + + + Care Team Providers + +------+ + | Care Automotive Project Engineer Name | Role | Phone | [...] | 2018 | Encounter | | Sherrill aJved RN | of left ovary (HCC) | [...] neoplasm | | 2019 | | | Quality Control Microbiology Supervisor | of left ovary (HCC); | | [...] | | 2019 | | | M, Quality Control Microbiology Supervisor | of left ovary (HCC); | | [...] [place] | | | | | | [place] | | | | | | [address] | | | | | | | | +--------+ + + + + | 11/26/ | Office | Oncology | Yancy Clifford MD | | | 2018 | Visit | | [address] | | | | | | [place] | | | | | | [address] | | | | | | | | | | | | Jennyfer Calvert | | | | | | [place] [facility] [address] | | | | | | [address] | | | | | | [place] [address] | | | | | | [phone] | | | | | | | | +--------+ + + + + | 11/26/ | Appointment | Infusion Therapy | Yancy Clifford MD | | | 2018 | | | [address] | | | | | | [place] | | | | | | [address] | | | | | | | | +--------+ + + + + | 12/17/ | Appointment | Infusion Therapy | Yancy Clifford MD | | | 2019 | | | [address] | | | | | | [place] | | | | | | [address] | | | | | | | | +--------+ + + + + | 12/17/ | Office | Oncology | Yancy Clifford MD | | | 2019 | Visit | | [address] | | | | | | [place] | | | | | | [address] | | | | | | | | +--------+ + + + + | 12/17/ | Appointment | Infusion Therapy | Yancy Clifford MD | | | 2019 | | | [address] | | | | | | [place] | | | | | | [address] | | | | | | | [...] - 1.030 | REFERENCE | | | [place], | | | LAB | | | [...] REFERENCE | | | | Performed at [facility], [address] | | LAB | | | | [address] | | [facility] | | | | [address], [place] | | LABORATORY | | | | [address] | | | | + + + + + + + + | Specimen | + + | | + + + + + + + | Performing | Address | City/State/Zipcode | Phone Number | | Organization | | | | + + + + + | REFERENCE LAB | [address] | [place] [address] | [phone] | | [facility] | Blvd[address] | | | | LABORATORY | | | | + + + + + | REFERENCE LAB | [address] | [place] [address] | | | [facility] | Bl[address] | [...] [place] | | | | | | [address] | | | | + + + + + + + + | Specimen | + + | | + + + + + + + | Performing | Address | City/State/Zipcode | Phone Number | | Organization | | | | + + + + + | REFERENCE LAB | [address] | [place] [address] | [phone] | | [facility] | Blvd. | | | | LABORATORY | | | | + + + + + | REFERENCE LAB | [address] [facility] | [place] [address] | | | [facility] | Blvd. | [...] | | | RATIO,URINE | performed at [facility];[address] | | LAB | | | | [place] | | [facility] | | | | Blvd;[place] [address] | | LABORATORY | | + + + + + + + + | Specimen | + + | | + + + + + + + | Performing | Address | City/State/Zipcode | Phone Number | | Organization | | | | + + + + + | REFERENCE LAB | [address] [facility] | [place] [address] | [phone] | | [facility] | Blvd. | | | | LABORATORY | | | | + + + + + | REFERENCE LAB | [address] [facility] | [place] [address] | | | [facility] | Blvd. | [...] LAB | | | | performed at [facility];[address] | | [facility] | | | | [facility] | | LABORATORY | | | | Blvd;[place] [address] | | | | | | | | | | + + + + + + + + | Specimen | + + | | + + + + + + + | Performing | Address | City/State/Zipcode | Phone Number | | Organization | | | | + + + + + | REFERENCE LAB | [address] [place] [address] | [place] [address] | [phone] | | [facility] | Blvd. | | | | LABORATORY | | | | + + + + + | REFERENCE LAB | [address] [place] [address] | [place] [address] | | | [facility] | Blvd. | [...] | | | urine | performed at [facility];[address] | | [facility] | | | | [place] | | LABORATORY | | | | Blvd;[place], [place] [address] | | | | | | | | | | + + + + + + + + | Specimen | + + | | + + + + + + + | Performing | Address | City/State/Zipcode | Phone Number | | Organization | | | | + + + + + | REFERENCE LAB | [address] [facility] | [place] [address] | [phone] | | [facility] | Blvd. | | | | LABORATORY | | | | + + + + + | REFERENCE LAB | [address] [place] [address] | [place] [address] | | | [facility] | Blvd. | [...] | | LABORATORY | | | | [address] | | | | + + + + + + + + | Specimen | + + | Blood | + + + + + + + | Performing | Address | City/State/Zipcode | Phone Number | | Organization | | | | + + + + + | REFERENCE LAB | [address] [facility] | [place] [address] | [phone] | | [facility] | Blvd. | | | | LABORATORY | | | | + + + + + | REFERENCE LAB | [address] [place] [address] | [place] [address] | | | [facility] | Blvd. | [...] REFERENCE | | | | [facility] ([facility]) | | LAB | | | | [...] at | | | | | | TCL;[address] [place] [address] | | | | | | Blvd;[place] [address] | | | | | | | | | | + + + + + + + + | Specimen | + + | Blood | + + + + + + + | Performing | Address | City/State/Zipcode | Phone Number | | Organization | | | | + + + + + | REFERENCE LAB | [address] [facility] | [place] [address] | [phone] | | [facility] | Blvd. | | | | LABORATORY | | | | + + + + + | REFERENCE LAB | [address] | [place] [address] | | | [facility] | Blvd. | [...] | | | | | performed at [facility];[address] | | | | | | [facility] | | | | | | [facility];[place] [address] | | | | | | | | | | + + + + + + + + | Specimen | + + | Blood | + + + + + + + | Performing | Address | City/State/Zipcode | Phone Number | | Organization | | | | + + + + + | REFERENCE LAB | [address] [place] [address] | [place] [address] | [phone] | | [facility] | Blvd. | | | | LABORATORY | | | | + + + + + | REFERENCE LAB | [address] [place], [place] [address] | [place] [address] | | | [facility] | Blvd. | [...] +--------+ +---------+--------+ | MEDICARE | MEDICA | [id number] | 05/02/20 | [phone] | | Medica | | | RE | | 17-Pre | 5 | | re | | | PART A | | sent | | | | | | AND B | | | | | | + +--------+ +--------+ +---------+--------+ | COORDINATED CARE | COORDI | [id number] | 04/01/20 | | | Medica | [...] +---------+--------+ | MEDICAID [place] | MEDICA | [id number] | 07/04/20 | [phone] | | Medica [...] Person | Self | [birth year] | | [address] | | | al/Fam | | 1959 | [phone] | [address] [place], | | | ever | | | 6 (Home) | [place] [address] | + +--------+ +--------+ + + | Ramila Lopez | Person | Self | [birth year] | | [address] | | | al/Fam | | 1960 | [phone] | [address] [place], | | | ever | | | 6 (Home) | [place] [address] | + +--------+ +--------+ + + Advance Directives + + + + + | Type | Date Recorded | Patient | Explanation | | | | Auto Inspector | | + + + + + | Power of | | | | | Assembler Tester | | | | + + + + + | Advance | | | | | Directive | | | | + + + + +
--- OUTSIDE RECORDS SUMMARY | ~2019-11-22 | XMS | Encounter Summary ---
Demographics + + + | Address | [address] | | | [place] [address] | + + + | Home Phone | | + + + | Preferred Language | Unknown | + + + | Marital Status | | + + + | Cheondoism Affiliation | Unknown | + + + [...] | | | | [place] [address] | | + + + + + | Emory Larios | ECON | Unknown | | + + + + + Care Team Providers + +------+ + | Care Concrete Grinder Operator Name | Role | Phone | + +------+ + | Shannan Deng | PCP | | + +------+ + Encounter Details +--------+ + + + + | Date | Type | Department | Care Team | Description | +--------+ + + + + | 10/15/ | Hospital | [facility] | Yancy Clifford MD | 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 Sent to [facility] for peripheral draw 19 9:06 AM PSTdocumented in this encounter Plan of Treatment +--------+ + + + + | Date | Type | Specialty | Care Team | Description | +--------+ + + + + | 11/26/ | Appointment | Infusion Therapy | Yancy Clfiford MD | | | 2018 | | | [address] | | | | | | [place] | | | | | | [address] | | | | | | | | +--------+ + + + + | 11/26/ | Office | Oncology | Yancy Clifford MD | | | 2018 | Visit | | [address] | | | | | | [place] | | | | | | [address] | | | | | | | | | | | | Jennyfer Calvert | | | | | | [place] [facility] [address] | [address] | | | | | | [place] [address] | | | | | | [phone] | | | | | | | | +--------+ + + + + | 11/26/ | Appointment | Infusion Therapy | Yancy Clifford MD | | | 2018 | | | [address] | | | | | | [place] | | | | | | [address] | | | | | | | | +--------+ + + + + | 12/17/ | Appointment | Infusion Therapy | Yancy Clifford MD | | | 2019 | | | [address] | | | | | | [place] | | | | | | [address] | | | | | | | | +--------+ + + + + | 12/17/ | Office | Oncology | Yancy Clifford MD | | | 2019 | Visit | | [address] | | | | | | [place] | | | | | | [address] | | | | | | | | +--------+ + + + + | 12/17/ | Appointment | Infusion Therapy | Yancy Clifford MD | | | 2019 | | | [address] | | | | | | [place] | | | | | | [address] | | | | | | | [...] | | | | Line Care, Starting [facility] 10/15/19 | | AM PST | | | | | at 0904 | | | | | | + +-------+ +--------+---+---+ +---+---+ | | | +---+---+ documented in this encounter"
--- OUTSIDE RECORDS SUMMARY | ~2019-11-22 | XMS | Encounter Summary ---
Demographics + + + | Address | [address] | | | [place] [address] | + + + | Home Phone [...] + + | Author | [facility] | | | and [place] | + + + | Organization | [facility] | | | [...] | | | | [place] [address] | | + + + + + | Emory Larios | ECON | Unknown | | + + + + + Care Team Providers + +------+ + | Care Cylinder Loader Name | Role | Phone | + +------+ + PCP | Unavailable | + +------+ + Encounter Details +--------+ + + + + | Date | Type | Department | Care Team | Description | +--------+ + + + + | 04/23/ | Emergency | [facility] | Claude Salinas MD | Epistaxis; | | 2019 | | MEDICAL CENTER | [address] | Thrombocytopenia | | | | EMERGENCY CENTER | [place] [address] | (HCC); Maintenance | | | | [address] | [phone] | chemotherapy; | | | | [place], [place] | | Pancytopenia due to | | | | [address] | | chemotherapy ([facility]) | | | | [phone] | | | +--------+ + + + [...] [place] | | | | | | [id number] | | | | | | | | +--------+ + + + + | 11/26/ | Office | Oncology | Yancy Clifford MD | | | 2018 | Visit | | [address] | | | | | | [place] | | | | | | [address] | | | | | | | | | | | | Jennyfer Calvert | | | | | | [place] [address] | | | | | | [address] | | | | | | [place] [address] | | | | | | [phone] | | | | | | | | +--------+ + + + + | 11/26/ | Appointment | Infusion Therapy | Yancy Clifford MD | | | 2018 | | | [address] | | | | | | [place] | | | | | | [address] | | | | | | | | +--------+ + + + + | 12/17/ | Appointment | Infusion Therapy | Yancy Clifford MD | | | 2019 | | | [address] | | | | | | [place] | | | | | | [address] | | | | | | | | +--------+ + + + + | 12/17/ | Office | Oncology | Yancy Clifford MD | | | 2019 | Visit | | [address] | | | | | | [place] | | | | | | [address] | | | | | | | | +--------+ + + + + | 12/17/ | Appointment | Infusion Therapy | Yancy Clifford MD | | | 2019 | | | [address] | | | | | | [place] | | | | | | [address] | | | | | | | [...] + | PROTIME INR | Routin | 04/23/2019 | | [...] | | | | | performed at [facility];[address] | | | | | | [facility];[place], [place] | | | | | | [address] | | | | + + + [...] + +---------+ + + External Lab: CBC (04/23/2019 10:48 AM PDT) + + + [...] LAB | | | Plasma | RESULTS SILVIO | | | | | | IN ED AT 1125 BY CRK | | | | | | IN ED AT 1125 BY CRK | | | | | | | [...] | | LAB | | | | [facility];[address] | | | | | | [address];[place] [address] | | | | + + + [...] | | | | | performed at [facility];[address] | | | | | | [address] [facility];[place], [place] | | | | | | [address] | | | | + + + [...]
--- OUTSIDE RECORDS SUMMARY | ~2019-11-22 | XMS | Encounter Summary ---
Demographics + + + | Address | [address] | | | [place] [address] | + + + | Home Phone | | + + + | Preferred Language | Unknown | + + + | Marital Status | | + + + | Moravian Affiliation | Unknown | + + + [...] | | | | [place] [address] | | + + + + + | Emory Larios | ECON | Unknown | | + + + + + Care Team Providers + +------+ + | Care Data Control Assistant Name | Role | Phone | [...] Closed | | Radiology | Diagnoses | [place], | [facility] [address] | | | | | Malignant | [address], [address] | | | | | neoplasm of | [facility]IER [address] | [place], [place] | | | | | left ovary | [address] | [address] | | | | | (HCC) | AVE | Phone: | | | | | Procedures | [place], | [phone] | | | | | CT Chest | [place] [address] | Fax: | | | | | Abdomen | Phone: | [phone] | | | | | Pelvis w | [phone] | | | | | | Contrast | Fax: | | | | | | | [phone] | | +--------+--------+ + + + + Reason for Visit + + + | Reason | Comments | + + + | Follow-up | Malignant neoplasm of left ovary | + + + Encounter Details +--------+---------+ + + + | Date | Type | Department | Care Team | Description | +--------+---------+ + + + | 10/15/ | Office | [facility] | Yancy Clifford MD | Malignant neoplasm | | 2019 | Visit | HEMATOLOGY AND | [address] | of left ovary (HCC) | | | | ONCOLOGY [address] | [place] | (Primary Dx) | | | | [address] | [address] | | | | | [place] | | | | | | [address] | Jennyfer Calvert | | | | | [phone] | CIERRA Lou [address] | | | | | [address] | | | | | | [place] [address] | | | | | | [phone] | | | | | | | [...] might be differ ent from the original. [facility] Hematology & Oncology Oncology Progress Note Patient [...] 05/2017 Genetic Testing Negative genetic testing through [facility]. 07/2017 Surgery S/p debulking surgery. Final pathology [...] file Gets together: Not on file Attends rastafarian service: Not on file Active member of [...] 35 U/mL Final Comment: THE [facility] [employer] ADVIA kissnofrogAUR IMMUNOASSAY METHOD IS USED. RESULTS OBTAINED WITH DIFFERENT ASSAY METHODS OR KITS CANNOT BE USED INTERCHANGEABLY. Testing performed at [facility];[address] [place] [address];[place] [address] Color, UA 10/15/2019 YELLOW Final Clarity, UA 10/15/2019 HAZY Final Specific [place], Urine 10/15/2019 1.025 1.002 - 1.030 Final [...] NEGATIVE NEG mg/dL Final Testing Performed at [facility], [address], [address], [place] [address] Na 10/15/2019 138 135 - 145 mmol/L Final Testing performed at [facility];[address] [place] [address];[place] [address] K 10/15/2019 4.3 3.5 - 4.9 mmol/L Final Testing performed at [facility];[address] [place] [address];[place] [address] Cl 10/15/2019 105 99 - 109 mmol/L Final Testing performed at [facility];[address] [place] [address];[place] [address] CO2 10/15/2019 26 23 - 32 mmol/L Final Testing Performed at [facility], [address], [address], [place] [address] Anion Gap 10/15/2019 11 5 - 20 mmol/L Final Testing performed at [facility];[address] [facility];[place] [address] Glucose 10/15/2019 145* 65 - 99 mg/dL [...] MDRD IDMS traceable equation. Testing Performed at [facility], [address], [address], [place] [address] WBC 10/15/2019 7.27 3.80 - 11.00 K/uL [...] - 0.10 K/uL Final Testing Performed at [facility], [address], [address], [place] [address] PRO/CREA RATIO,URINE 10/15/2019 0.508 Final Testing performed at [facility];[address] [place] [address];[place] [address] Creatinine, random urine 10/15/2019 120.0 mg/dL Final Comment: NO NORMAL RANGE ESTABLISHED Testing performed at [facility];[address] [place] [address];[place] [address] Protein, Urine 10/15/2019 61 mg/dL Final Comment: NO NORMAL RANGE ESTABLISHED Testing performed at [facility];[address] [place] [address];[place] [address] WBC UA 10/15/2019 NONE SEEN 0 - 5 /hpf Final RBC UA 10/15/2019 NONE SEEN 0 - 5 /hpf Final SQUAMOUS EPITHELIAL UA 10/15/2019 >100 /lpf Final BACTERIA UA 10/15/2019 NONE SEEN NONE Final MUCUS UA 10/15/2019 1+ Final CASTS 10/15/2019 0-2 /lpf Final Comment: COARSE GRANULAR Testing Performed at [facility], [address], [address], [place] [address] No results found. Assessment Ms. Ramila Baxter [...] and coordination of care. CIERRA Hartley, MIKE [facility] Hematology Oncology 10/15/2019 Portions of this chart [...] [place] | | | | | | [id number] | | | | | | | | +--------+ + + + + | 11/26/ | Office | Oncology | Yancy Clifford MD | | | 2018 | Visit | | [address] | | | | | | [place] | | | | | | [address] | | | | | | | | | | | | Jennyfer Calvert | | | | | | [place] [address] | | | | | | [address] | | | | | | [place] [address] | | | | | | [phone] | | | | | | | | +--------+ + + + + | 11/26/ | Appointment | Infusion Therapy | Yancy Clifford MD | | | 2018 | | | [address] | | | | | | [place] | | | | | | [address] | | | | | | | | +--------+ + + + + | 12/17/ | Appointment | Infusion Therapy | Yancy Clifford MD | | | 2019 | | | [address] | | | | | | [place] | | | | | | [address] | | | | | | | | +--------+ + + + + | 12/17/ | Office | Oncology | Yancy Clifford MD | | | 2019 | Visit | | [address] | | | | | | [place] | | | | | | [address] | | | | | | | | +--------+ + + + + | 12/17/ | Appointment | Infusion Therapy | Yancy Clifford MD | | | 2019 | | | [address] | | | | | | [place] | | | | | | [address] | | | | | | | [...]
--- OUTSIDE RECORDS SUMMARY | ~2019-11-22 | XMS | Encounter Summary ---
Demographics + + + | Address | [address] | | | [place] [address] | + + + | Home Phone [...] | | | | [place] [address] | | + + + + + | Emory Larios | ECON | Unknown | | + + + + + Care Team Providers + +------+ + | Care Children'S Choir Director Name | Role | Phone | + [...] | | Asc[place], | [place], | [place] [address] | | | | | malignant | [place] [address] | Phone: | | | | | Procedures | Phone: | [phone] | | | | | [place] | [phone] | Fax: | | | | | BEVACIZUMAB | Fax: | [phone] | | | | | INJECTION, | [phone] | | | | | | 10 MG [id number] | | | | | | | - [place] | | | | | | | [...] + + | 09/03/ | Hospital | [facility] | Yancy Clifford MD | Malignant neoplasm | | 2019 | Encounter | HEMATOLOGY AND | [address] | of left ovary (HCC) | | | | ONCOLOGY INFUSIONS | [place], [place] | (Primary Dx); | | | | [address] | [address] | Ascites, malignant | | | | AVE [place], [place] | | | | | | [address] | Bhakti Godfrey RN | | | | | [phone] | | | +--------+ + + + [...] is given by a health career guidance technician in a h ospital or clinic setting. Talk to your body shop manager regarding the use of this medicine in children. Special care may be needed. What side effects may I notice from receiving this medicine? Side effects that you should report to your doctor or health career guidance technician as soon as p ossible: allergic [...] to your doctor or health career guidance technician if they continue or are bothersome): back pain changes in taste decreased appetite dry skin nausea tiredness What may interact with this medicine? Interactions are not expected. What if I miss a dose? It is important not to miss your dose. Call your doctor or health career guidance technician if you are unable to keep [...] to your doctor or health career guidance technician if you are concerned about your [...] with [facility] DRAW in [facility]ION [facility] 09/24/2019 1415 - Office Visit Extended appointment starts at 1430 with Yancy Clifford MD in [facility] HEMATOLOGY AND ONCOLOGY 09/24/2019 1500 - Onc Infusion with JAZZY CHAIR 15 in [facility] HEMATOLOGY AND ONCOLOGY INFUSIONS documented in [...] [place] | | | | | | [address] | | | | | | | [...] | | | | [facility] [facility] [address] | | | | [address] | | | | | | [place] [address] | | | | | | [phone] | | | | | | | | +--------+ + + + + | 11/26/ | Appointment | Infusion Therapy | Yancy Clifford MD | | | 2018 | | | [address] | | | | | | [place] | | | | | | [address] | | | | | | | | +--------+ + + + + | 12/17/ | Appointment | Infusion Therapy | Yancy Clifford MD | | | 2019 | | | [address] | | | | | | [place] | | | | | | [address] | | | | | | | | +--------+ + + + + | 12/17/ | Office | Oncology | Yancy Clifford MD | | | 2019 | Visit | | [address] | | | | | | [place] | | | | | | [address] | | | | | | | | +--------+ + + + + | 12/17/ | Appointment | Infusion Therapy | Yancy Clifford MD | | | 2019 | | | [address] | | | | | | [place] | | | | | | [address] | | | | | | | [...] | | | over 30 Minutes, ONCE, [facility] | | | | | | [...]
--- OUTSIDE RECORDS SUMMARY | ~2019-11-22 | XMS | Encounter Summary ---
Demographics + + + | Address | [address] | | | [place] [address] | + + + | Home Phone | | + + + | Preferred Language | Unknown | + + + | Marital Status | | + + + | Episcopalian Affiliation | Unknown | + + + | Race | Unknown | + + + | Ethnic Group | Unknown | + + + Author + + + | Author | [facility] | | | and [place] | + + + | Organization | [facility] | | | and [...] | | | | | [place] [address] | | + + + + + | Emory Larios | ECON | Unknown | | + + + + + Care Team Providers + +------+ + | Care Wort Extractor Name | Role | Phone | + +------+ + PCP | Unavailable | + +------+ + Encounter Details +--------+ + + + + | Date | Type | Department | Care Team | Description | +--------+ + + + + | 05/13/ | Hospital | [facility] | Jared Piña, | | | 2019 - | Encounter | [facility] | MD [address] | | | | | CARE [address]LO[address] | [place] [address] | | | 05/16/ | | [address] | [phone] | | | 2018 | | [place], [place] | | | | | | [address] | | | | | | [phone] | | | +--------+ + + + [...] Service: Hospitalist Author Type: Physician Filed: 05/16/19 1510 Date of Service: 05/16/19822 Status: Signed Equine Science Instructor: Kristine Toussaint DO (Physician) Patient: Ramila Lopez [...] arthritis, asthma, DVT, dyslipidemia. She presented t [facility] ED on 05/13/19 with complaints of epistaxis. At that time her labs were nota ble for platelets 13, Hb 7.6, Hct 22.3. She was transferred to [facility] as there was no transfus ion services available at that time. Upon arrival to [facility] Oncology and ENT Dr. Hinds was consulted. [...] Discharge Information: Follow up: Jonnathan Hinds MD [address] [id number] [facility] [id number] On 05/18/2019 For nasal packing removal Per Pt None Yancy Clifford MD [address] [facility] [address] Medication List START taking these medications amoxicillin-clavulanate [...] Date of Service: 05/16/19 141 Status: Signed Equine Science Instructor: Burak Brooks RN (Registered Nurse) Education provided [...] Date of Service: 05/16/19 110 Status: Signed Equine Science Instructor: Yancy Clifford MD (Physician) [facility] Service: Hematology and Oncology Progress Note [...] Jaida Shen RN Service: (none) Author Type: Rental Agent Filed: 05/15/19 1539 Date of Service: 05/15/19 153 Status: Signed Equine Science Instructor: Jaida Shen RN (Rental Agent) CM attended daily medical team rounding. Pt is from home with spouse and will return home w hen medically stable. Kristine Burns DO - 05/15/2019 11:26 AM PDT Progress Notes by Kristine Toussaint DO at 05/15/19 1126 Author: Kristine Toussaint DO Service: Hospitalist Author Type: Physician Filed: 05/15/19 1134 Date of Service: 05/15/19 1126 Status: Signed Equine Science Instructor: Kristine Toussaint DO (Physician) [facility] Service: Hospitalist Progress Note Hospital Day: LOS: 2 days Post-Op Day: * No surgery found * SUBJECTIVE Patient Summary: Patient is a 58 yo F with PMHx of metastatic ovarian CA (last chemotherap y treatment last week; under treatment by Dr. Venessa Correa), arthritis, asthma, DVT, dyslipidemi a. She presented to [facility]'s ED on 05/13/19 with complaints of epistaxis. At that time her labs were notable for platelets 13, Hb 7.6, Hct 22.3. She was transferred to [facility] as the re was no transfusion services available at that time. Upon arrival to [facility] Oncology and ENT Dr. Hinds were consulted. [...] on Saturday if no ENT available in [place]. Juliano l transition to Augmentin for prophylaxis. [...] Advanced R egistered Nurse Practitioner Filed: 05/15/19 6539 Date of Service: 05/15/19930 Status: Signed Equine Science Instructor: CIERRA Joshi (Advanced Registered Nurse Practitioner) [facility] Service: Hematology and Oncology Progress Note Hospital Day: LOS: 2 days Patient Summary: Ms. Ramila Lopez is a 58 year old woman who presented to ER in [place] in April 2017 second yunior to dyspnea [...] of ovarian primary. She was referred to [facility] and established with Dr. Nolasco. Given her [...] established with Dr. Clifford after moving to [place]. In December 2018, the patient experienced rising [...] May 13, 2019, the patient presented to [facility] ER secondary to epistaxis. The gaetano ent was seen in the ER by Dr. Diop. The patient was noted to be pancytopenic with platelet s 13,000, hemoglobin 7.6, and total white cell count 25,000. ER provider requested transfer to [facility] given the lack of platelets available in their facility. The patient received 2 un its of fresh frozen plasma prior to transfer and was admitted to [facility] for further manageme nt. SUBJECTIVE: Events [...] (none) Author Type: Registered Nurse Filed: 05/14/19 0383 Date of Service: 05/14/191708 Status: Signed Equine Science Instructor: Senait Lehman RN (Registered Nurse) Transfused 2 [...] 1422 Date of Service: 05/14/191420 Status: Signed Equine Science Instructor: Alisha De La Torre RD (Registered Dietitian) 05/14/19 1400 Subjective Timepoint Admit Pt c/o Pt triggered for screen secondary to dysphagia. Admitted d/t pancytopenia, had intra ctable nose bleed. Reported by Patient Diet Experience Self-selected diet(s) followed Reports she was eating well FUR FARMER, follows no special diet. Sadler d a BLT before transferring to [facility]. Fluid / Beverage Intake Oral Fluids Amount [...] expressed frustratio n with restrictive diet. Recommend POACHER WRINGER OPERATOR evaluation to determine safest diet or liberalizing i f appropriate. Anthropometrics Weight change Admit wt: 87.5 kg. BMI of 33 considered obese. Pt reports wt has been stable , medical records confirm. Monitor wt trend. Biochemical data, medical tests, and procedures reviewed Biochemical data, medical tests, and procedures reviewed Labs reviewed. Estimated Energy Needs Total Energy Estimated Needs 7087-0808 kcal/day Method for Estimating Needs 25-30 kcal/kg per 62.78 AdjBW Estimated Protein Needs Total Protein Estimated Needs 75-94 g/day Method for Estimating Needs 1.2-1.5 g/kg Recommendations Recommended energy needs General diet with modified textures as needed. Recommend POACHER WRINGER OPERATOR evalu ation to determine safest PO intake, liberalize diet as possible to promote adequate intake. Monitor and follow per protocol. Nutritional Risk Nutritional risk Moderate Follow up date 05/19/19 Lynne John John, JORDY 05/14/2019 onver yuri Teixeira, Provider Unknown - 05/14/2019 11:51 AM PDT Case Management by Jaida Shen RN at 05/14/19 1151 Author: Jaida Shen RN Service: (none) Author Type: Rental Agent Filed: 05/14/19 1231 Date of Service: 05/14/19 1151 Status: Signed Equine Science Instructor: Jaida Shen RN (Rental Agent) 05/14/19 1141 Discharge Planning Evaluation Admitting Diagnosis Pancytopenia Readmission No Living Arrangements Spouse/significant other Support Systems Spouse/significant other;Children;Family members Type of Residence Private residence House type House-1 story Independent with ADL's Yes Independent with Mobility Yes Home Care Services No Caregiver after Discharge Yes Caregiver Name Jared Lopez Relationship to Patient spouse Phone number [phone] Mental Status Oriented Prior functional status independent [...] cancer. Pt lives with her spouse in [place], [place] and has been independent with adls [...] Service: Hospitalist Author Type: Physician Filed: 05/14/19 1148 Date of Service: 05/14/191129 Status: Signed Equine Science Instructor: Star Cedeño MD (Physician) [facility] Service: Hospitalist Progress Note Hospital Day: [...] 05/14/19619 Date of Service: 05/14/19616 Status: Signed Equine Science Instructor: Anitha Simons RN (Registered Nurse) End of [...] 05/13/191826 Date of Service: 05/13/191826 Status: Signed Equine Science Instructor: Jessica Garza RPH (Pharmacist) Clinical Pharmacy Note: [...] d adjust accordingly. Jessica Garza Pharm D, [facility] 05/13/2019 6:26 PM onver yuri Transaction, Provider Unknown - 05/13/2019 6:00 PM PDT Progress Notes by Jessica Garza RPH at 05/13/19 1800 Author: Jessica Garza RPH Service: Pharmacy Author Type: Pharmacist Filed: 05/13/191799 Date of Service: 05/13/19 1800 Status: Signed Equine Science Instructor: Jessica Garza RPH (Pharmacist) Clinical Pharmacy Note: [...] appropriate dosing per renal function. Jessica Garza [facility] 5:59 PM 05/13/2019 Pharmacist onver yuri Teixeira, Provider Unknown - 05/13/2019 4:53 PM PDT Nurse Progress Note by Jillian Cruz RN at 05/13/191652 Author: Jillian Cruz RN Service: (none) Author Type: Registered Nurse Filed: 05/13/191815 Date of Service: 05/13/191652 Status: Addendum Equine Science Instructor: Jillian Cruz RN (Registered Nurse) Related Notes: Original Note by Jillian Cruz RN (Registered Nurse) filed at 05/13/19 16 55 End of Shift Note: Pt admitted to floor resting comfortably in bed. [place] in place, but pt reports that nose is still oozing down throat. FUR FARMER med list reviewed and complete. Pt states [...] [place] | | | | | | [address] | | | | | | | | +--------+ + + + + | 11/26/ | Office | Oncology | Yancy Clifford MD | | | 2018 | Visit | | [address] | | | | | | [place] | | | | | | [address] | | | | | | | | | | | | Jennyfer Calvert | | | | | | Carmine [facility] [address] | | | | [address] | | | | | | [place] [address] | | | | | | [phone] | | | | | | | | +--------+ + + + + | 11/26/ | Appointment | Infusion Therapy | Yancy Clifford MD | | | 2018 | | | [address] | | | | | | [place] | | | | | | [address] | | | | | | | | +--------+ + + + + | 12/17/ | Appointment | Infusion Therapy | Yancy Clifford MD | | | 2019 | | | [address] | | | | | | [place] | | | | | | [address] | | | | | | | | +--------+ + + + + | 12/17/ | Office | Oncology | Yancy Clifford MD | | | 2019 | Visit | | [address] | | | | | | [place] | | | | | | [address] | | | | | | | | +--------+ + + + + | 12/17/ | Appointment | Infusion Therapy | Yancy Clifford MD | | | 2019 | | | [address] | | | | | | [place] | | | | | | [address] | | | | | | | [...] | EXTERNAL LAB: [facility] | Routin | 05/15/2019 | | Results [...] in this encounter Results External Lab: [facility] (05/16/2019 4:58 AM PDT) + + +---- [...] | | | | | | at [facility], [address] | | | | | [facility], | | | | | | [place] [address] | | | | | |Testing performed at [facility], [address] [place] [address] | | | | | | | [...] | | | | | performed at [facility], [address] | | | | | | [facility], | | | | | | [place] [address] | | | | + + + [...] LAB | | | | performed at [facility], [address] | | | | | | [address], | | | | | | [place] [address] | | | | | | | [...] | | | | | performed at [facility];[address] | | | | | | [facility];[place], [place] | | | | | | [address] | | | | + + + [...] CMS | | | | | |AUGUSTINE R 6RP 37 05/14/19 CMS | | | [...] LAB | | | | TCL, [address] | | | | | | [place] | | | | | | [address] | | | | + + + [...] [address], | | | | | | [place] [address] | | | | + + + [...] EXTERNAL | | | | performed at [facility], [address] | | LAB | | | | [address], | | | | | | [place] [address] | | | | + + + [...] | | | | | performed at [facility], [address] | | | | | | [address], | | | | | | [place] [address] | | | | + + + [...] - 1.030 | EXTERNAL | | | [place] | | | LAB | | + [...] EXTERNAL | | | | performed at [facility];[address] | | LAB | | | | [address];[place], [place] | | | | | | [address] | | | | + + + [...] + + | Historically converted procedure from [facility] environment | EXTERNAL LAB | + + [...] | | | Patient | performed at [facility];[address] | | LAB | | | [address];[place], [place] | | | | | | [address] | | | | + + + [...] | | | | | performed at [facility];[address] | | | | | | [facility];[place], [place] | | | | | | [address] | | | | + + + [...] | LAB | | | Plasma | P [id number] | | | | | |KEISHA Stephenson RN 6R [phone] | | | | | | | [...] | | | | | performed at [facility] | | | | | | [facility];[place], [place] | | | | | | [address] | | | | | |Testing performed at [facility];[address] [place] [address];[place] [address] | | | | | | | [...] EXTERNAL | | | | performed at [facility];[address] | | LAB | | | | [address];[place], [place] | | | | | | [address] | | | | + + + [...] EXTERNAL | | | | performed at [facility] | | LAB | | | | [address];[place] | | | | | | [address] | | | | + + + [...] | | | | | performed at [facility];[address] | | | | | | [facility];[place], [place] | | | | | | [address] | | | | + + + [...]
--- OUTSIDE RECORDS SUMMARY | ~2019-11-22 | XMS | Clinical Summary ---
Demographics + + + | Address | [address] | | | [place] [address] | + + + | Home Phone | | + + + | Preferred Language | Unknown | + + + | Marital Status | Legally | + + + | Scientology Affiliation | Unknown | + + + | Race | Unknown | + + + | Ethnic Group | Unknown | + + + Author + + + | Author | [facility] (Historical as of | | | 07-18-19) | + + + | Organization | [facility] (Historical as of | | | 07-18-19) | + + + | Address | Unknown | + + + | Phone | Unavailable | + + + Support + + + + + | Name | Relationship | Address | Phone | + + + + + | Jared Baxter | EBENEZER | [address] | | | | | [place] [address] | | + + + + + | Emory Larios | [place] | Unknown | | + + + + + Care Team Providers + +------+ + | Care Strategic Advisor Name | Role | Phone | + +------+ + | Shannan Deng | PP | | + +------+ + Allergies + + + + + + | Active Allergy | Reactions | Severity | Noted | Comments | | | | | Date | | + + + + + + | Codeine | Nausea and Vomiting | Medium | 09/29/20 | | | | | | 15 | | + + + + + + Current Medications + + + +---------+------+------+-------+ | Prescription | Sig. | Disp. | Refills | Star | End | Statu | | | | | | t | Date | s | | | | | | Date | | | + + + +---------+------+------+-------+ | albuterol (PROAIR | Inhale 2 puffs into | | | | | Activ | | HFA) 108 (90 BASE) | the lungs every 4 | | | | | e | | MCG/ACT inhaler | (four) hours as | | | | | | | | needed for Wheezing. | | | | | | + + + +---------+------+------+-------+ | lovastatin | Take 20 mg by mouth | | | | | Activ | | (MEVACOR) 20 MG | nightly. | | | | | e | | tablet | | | | | | | + + + +---------+------+------+-------+ | fluticasone | 1 spray by Nasal | | | 10/2 | | Activ | | (FLONASE) 50 MCG/ACT | route. | | | 7/20 | | e | | nasal | | | | 16 | | | + + + +---------+------+------+-------+ | ondansetron | Take 8 mg by mouth | | | | | Activ | | (ZOFRAN) 8 MG tablet | every 8 (eight) | | | | | e | | | hours as needed for | | | | | | | | Nausea. | | | | | | + + + +---------+------+------+-------+ | lactulose | Take 15 mLs by mouth | 240 mL | 3 | / | | Activ | | (CHRONULAC) 10 | every 2 (two) hours | | | 4/20 | | e | | GM/15ML | as needed | | | 19 | | | | solutionIndications: | (constipation). | | | | | | | Constipation, | Until a good bowel | | | | | | | unspecified | movement. | | | | | | | constipation type | | | | | | | + + + +---------+------+------+-------+ | prochlorperazine | Take 1 tablet by | 30 | 3 | 01/02 | | Activ | | 10 MG | mouth every 6 (six) | tablet | | 4/20 | | e | | tabletIndications: | hours as needed. | | | 19 | | | | Pleural effusion, | | | | | | | | malignant, Malignant | | | | | | | | neoplasm of both | | | | | | | | ovaries (HCC) | | | | | | | + + + +---------+------+------+-------+ | fluticasone | Inhale 1 puff into | | | | | Activ | | (FLOVENT HFA) 220 | the lungs 2 (two) | | | | | e | | MCG/ACT inhaler | times daily. Rinse | | | | | | | | mouth after use | | | | | | + + + +---------+------+------+-------+ | loratadine | Take 10 mg by mouth | | | | | Activ | | (CLARITIN) 10 MG | daily. | | | | | e | | tablet | | | | | | | + + + +---------+------+------+-------+ | aspirin 81 MG | Take 81 mg by mouth | | | | | Activ | | tablet | daily. | | | | | e | + + + +---------+------+------+-------+ | polyethylene | Take 17 g by mouth | | | | | Activ | | glycol (GLYCOLAX) | daily. | | | | | e | | packet | | | | | | | + + + +---------+------+------+-------+ + + +-------+ +------+------+-------+ | Hospital, Clinic, or | Ordered | Route | Frequency | Star | End | Statu | | Other Facility | Dose | | | t | Date | s | | Administered | | | | Date | | | | Medication | | | | | | | + + +-------+ +------+------+-------+ | heparin flush (PF) | 500 Units | IK | PRN | 04/1 | | Activ | | 100 unit/mL | | | | 8/20 | | e | | injection 500 | | | | 19 | | | | UnitsIndications: | | | | | | | | Malignant neoplasm | | | | | | | | of both ovaries | | | | | | | | (HCC) | | | | | | | + + +-------+ +------+------+-------+ | sodium chloride | 10 mL | IV | PRN | 04/1 | | Activ | | 0.9 % flush 10 | | | | 8/20 | | e | | mLIndications: | | | | 19 | | | | Malignant neoplasm | | | | | | | | of both ovaries | | | | | | | | (HCC) | | | | | | | + + +-------+ +------+------+-------+ Active Problems + + + | Problem | Noted Date | + + + | Pancytopenia (HCC) | 05/13/2019 | + + + | Epistaxis | 05/13/2019 | + + + | Coagulopathy (HCC) | 05/13/2019 | + + + | Tobacco use disorder | 05/13/2019 | + + + | Acute cystitis without hematuria | 05/13/2019 | + + + | Chronic deep vein thrombosis (DVT) of right upper extremity (HCC) | 05/14/2018 | + + + | Malignant neoplasm of left ovary (HCC) | 05/14/2018 | + + + | Hyperlipidemia | 05/22/2017 | + + + | Family history of colon cancer | 05/01/2017 | + + + | Acute thrombosis of internal jugular vein (HCC) | 05/01/2017 | + + + | Ascites, malignant | 04/12/2017 | + + + | Pleural effusion, malignant | 04/12/2017 | + + + | Degeneration of lumbar intervertebral disc | 11/11/2015 | + + + | Spinal stenosis of lumbar region | 05/20/2015 | + + + Immunizations + + + + | Name | Dates Previously Given | Next Due | + + + + | Influenza, Trivalent | 09/11/2017, 09/19/2015, 10/15/2014 | | | W/Preservative | | | + + + + | Pneumococcal | 10/15/2014 | | | Polysaccharide | | | | 23-valent | | | + + + + | Tdap | 09/19/2015 | | + + + [...] Current Every Day | | 0.5 | 40 | | | Smoker | | | | | + +-------+ +--------+------+ + +---+---+---+ | Smokeless Tobacco: | | | | | Never Used | | | | + +---+---+---+ + + | Tobacco Cessation: Ready to Quit: Yes; Counseling Given: Yes | + + + + +---------+ + | Alcohol Use | Drinks/We | oz/Week | Comments | | | ek | | | + + +---------+ + | No | | | | + + +---------+ + + + + | Sex Assigned at | Date Recorded | | | | + + + | Not on file | | + + + Last Filed Vital Signs + + + + | Vital Sign | Reading | Time Taken | + + + + | Blood Pressure | 132/80 | 07/02/2019 1:22 PM PDT | + + + + | Pulse | 97 | 07/02/2019 1:22 PM PDT | + + + + | Temperature | 36.5 C (97.7 F) | 07/02/2019 1:22 PM PDT | + + + + | Respiratory Rate | 16 | 07/02/2019 1:22 PM PDT | + + + + | Oxygen Saturation | 100% | 07/02/2019 1:22 PM PDT | + + + + | Inhaled Oxygen | - | - | | Concentration | | | + + + + | Weight | 85.7 kg (189 lb) | 07/02/2019 1:22 PM PDT | + + + + | Height | 162.6 cm (5' 4") | 07/02/2019 1:22 PM PDT | + + + + | Body Mass Index | 32.44 | 07/02/2019 1:22 PM PDT | + + + + Plan of Treatment + + + + + | Health Maintenance | Due Date | Last Done | Comments | + + + + + | Cervical Cancer | | | | | Screening (Pap) | 9 | | | + + + + + | Breast Cancer | | | | | Screening | 9 | | | | (Mammogram) | | | | + + + + + | Colon Cancer | | | | | Screening | 9 | | | | (Colonoscopy) | | | | + + + + + | Vaccine: Zoster (1 | | | | | of 2) | 9 | | | + + + + + | Vaccine: | | 10/15/2014 | | | Pneumococcal 19-64 | 5 | | | | Highest Risk (2 of 3 | | | | | - PCV13) | | | | + + + + + | Vaccine: Influenza | | 09/11/2017, 09/19/2015, | | | (#1) | 9 | 10/15/2014 | | + + + + + | Vaccine: | | 09/19/2015 | | | Dtap/Tdap/Td (2 - | 5 | | | | Td) | | | | + + + + + Results Not on filefrom Last 3 Months Insurance + +--------+ +------+-------+ + | Payer | Benefi | Subscriber | Type | Phone | Address | | | t Plan | ID | | | | | | / | | | | | | | Group | | | | | + +--------+ +------+-------+ + | MEDICARE | MEDICA | [id number] | | | [address] | | | RE | | | | [place] [id number] | | | IP-OP | | | | | + +--------+ +------+-------+ + | MEDICAID | MEDICA | [id number] | | | [address] | | | ID | | | | [place] | | | [place] | | | | [address] | + +--------+ +------+-------+ + + +--------+ +--------+ + + | Guarantor Name | Accoun | Relation to | Date | Phone | Billing Address | | | t Type | Patient | of | | | | | | | | | | + +--------+ +--------+ + + | ELSY BAXTER | Person | Self [birth year] | Home: | [address] | | | al/Fam | | 1959 | [phone] | [address] [place], | | | ever | | | [address] | [place] [address] | + +--------+ +--------+ + +
--- OUTSIDE RECORDS SUMMARY | ~2019-11-22 | XMS | Encounter Summary ---
Demographics + + + | Address | [address] [address] [facility] [address] | | | [place] [address] | + + + | Home Phone | | + + + | Preferred Language | Unknown | + + + | Marital Status | | + + + | Sabianist Affiliation | Unknown | + + + | Race | Unknown | + + + | Ethnic Group | Unknown | + + + Author + + + | Author | [facility] | | | and [place] | + + + | Organization | [facility] | | | [...] | | | | [place] [address] | | + + + + + | Emory Larios | ECON | Unknown | | + + + + + Care Team Providers + +------+ + | Care Gas Compressor Turbine Operator Name | Role | Phone | [...] | | ECHO | [address] | [place], [place] | | | | | Complete | [place] | [address] | | | | | | [address] | Phone: | | | | | | Phone: | [phone] | | | | | | [phone] | Fax: | | | | | | Fax: | [phone] | | | | | | [phone] | | +--------+--------+ + + + + Encounter Details +--------+ + + + + | Date | Type | Department | Care Team | Description | +--------+ + + + + | 08/04/ | Orders Only | [facility] | Scott Boswell MD | Pulmonary HTN (HCC) | | 2019 | | PULMONOLOGY [address] | [address] | (Primary Dx) | | | | [address] | [place], [place] | | | | | [place], [place] | [address] | | | | | [address] | | | | | | [phone] | | | +--------+ + + + [...] | | | | | [place] [address] | | | | | | [phone] | | | | | | | | +--------+ + + + + | 11/26/ | Appointment | Infusion Therapy | Yancy Clifford MD | | | 2018 | | | [address] | | | | | | [place] | | | | | | [address] | | | | | | | | +--------+ + + + + | 12/17/ | Appointment | Infusion Therapy | Yancy Clifford MD | | | 2019 | | | [address] | | | | | | [place] | | | | | | [address] | | | | | | | | +--------+ + + + + | 12/17/ | Office | Oncology | Yancy Clifford MD | | | 2019 | Visit | | [address] | | | | | | [place] | | | | | | [address] | | | | | | | | +--------+ + + + + | 12/17/ | Appointment | Infusion Therapy | Yancy Clifford MD | | | 2019 | | | [address] | | | | | | [place] | | | | | | [address] | | | | | | | | +--------+ + + + + + + +--------+ + + | Name | Type | Priori | Associated Diagnoses | Order Schedule | | | | ty | | | + + +--------+ + + | ECHO Complete | Echocardiog | Routin | Pulmonary HTN | Expected: | | | pipo | e | ([facility]) | 08/04/2019, Expires: | | | | | | 08/04/2020 | + + +--------+ + + documented as of this encounter Visit Diagnoses + + | Diagnosis | + + | Pulmonary HTN (HCC) - Primary Other chronic pulmonary heart diseases | + + documented in this encounter"
--- OUTSIDE RECORDS SUMMARY | ~2019-11-22 | XMS | Encounter Summary ---
Demographics + + + | Address | [address] [address] [address] | | | [place] [address] | + + + | Home Phone | | + + + | Preferred Language | Unknown | + + + | Marital Status | | + + + | Yazdanism Affiliation | Unknown | + + + [...] | | | | [place] [address] | | + + + + + | Emory Larios | ECON | Unknown | | + + + + + Care Team Providers + +------+ + | Care Marine Fireman Name | Role | Phone | + +------+ + | Shannan Deng | PCP | | + +------+ + Reason for Visit + + + | Reason | Comments | + + + | Follow-up | | + + + Encounter Details +--------+---------+ + + + | Date | Type | Department | Care Team | Description | +--------+---------+ + + + | 09/24/ | Office | [facility] | Yancy Clifford MD | Malignant neoplasm | | 2019 | Visit | HEMATOLOGY AND | [address] | of left ovary (HCC) | | | | ONCOLOGY [address] | [place] | (Primary Dx); | | | | [address] | [address] | 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); Pleural | | | | [phone] | | effusion, malignant; | | | [...] + + + | Blood Pressure | 138/78 | 09/24/2019 2:12 PM | | | | | PDT | | + + + + + | Pulse | 110 | 09/24/2019 2:12 PM | | | | | PDT | | + + + + + | Temperature | 36.8 C (98.3 F) | 09/24/2019 2:12 PM | | | | | PDT | | + + + + + | Respiratory Rate | - | - | | + + + + + | Oxygen Saturation | 96% | 09/24/2019 2:12 PM | | | | | PDT | | + + + + + | Inhaled Oxygen | - | - | | | Concentration | | | | + + + + + | Weight | - | - | | + + + + + | Height | - | - | | + + + + + | Body Mass Index | - | - | | + + + + + documented in this encounter Progress Notes Yancy Clifford MD - 09/24/2019 2:30 PM PDT ONCOLOGY FOLLOW-UP VISIT Patient ID: Ramila Lopez is a 59 y.o. female. Referring Provider: Yancy Clifford MD PCP: SALINA Elaine Surgeon: Dr. Hoskins Radiation [...] 05/2017 Genetic Testing Negative genetic testing through [facility]. 07/2017 Surgery S/p debulking surgery. Final pathology [...] (six) hours as needed. 30 tablet 3 Current Facility-Administered Medications on File Prior to Visit Medication Dose Route Frequency Provider Last Rate Last Dose sodium chloride 0.9% flush 10 mL 10 mL Intracatheter PRN Yancy Clifford MD 10 mL at 09/02 03/20 1344 Objective: BP 138/78 | Pulse 110 | Temp 36.8 C (98.3 F) (Tympanic) | SpO2 96% Physical Exam Constitutional: She is oriented to person, place, and time. No distress. HENT: Mouth/Throat: Oropharynx is clear and moist. Neck: Normal range of motion. Neck supple. Cardiovascular: Normal rate and regular rhythm. Pulmonary/Chest: She has wheezes (at right lung field). Abdominal: Soft. Bowel sounds are normal. She exhibits no distension. There is no tendernes s. A hernia is present. Musculoskeletal: She exhibits no edema. Neurological: She is alert and oriented to person, place, and time. Hospital Outpatient Visit on 09/24/2019 Component Date Value Ref Range Status WBC 09/24/2019 8.58 3.80 - 11.00 K/uL Final RBC 09/24/2019 4.95 3.70 - 5.10 M/uL Final Hemoglobin 09/24/2019 15.1 11.3 - 15.5 g/dL Final Hematocrit 09/24/2019 43.9 34.0 - 46.0 % Final MCV 09/24/2019 88.7 80.0 - 100.0 fl Final MCH 09/24/2019 30.6 27.0 - 34.0 pg Final MCHC 09/24/2019 34.5 32.0 - 35.5 g/dL Final RDW-SD 09/24/2019 54.7* 37 - 53 fl Final Platelet Count 09/24/2019 225 150 - 400 K/uL Final MPV 09/24/2019 7.3 fl Final Diff Type 09/24/2019 AUTOMATED Final % Neutrophils 09/24/2019 63.79 % Final % Lymphocytes 09/24/2019 28.58 % Final Monocyte % 09/24/2019 5.44 % Final Eosinophils % 09/24/2019 1.11 % Final Basophils % 09/24/2019 1.08 % Final Neutrophils, Absolute 09/24/2019 5.47 1.90 - 7.40 K/uL Final Absolute Lymphocytes 09/24/2019 2.45 1.00 - 3.90 K/uL Final Absolute Monocytes 09/24/2019 0.47 0.00 - 0.80 K/uL Final Eosinophils, Absolute 09/24/2019 0.10 0.00 - 0.50 K/uL Final Basophils, Absolute 09/24/2019 0.09 0.00 - 0.10 K/uL Final Testing Performed at [facility], [address], [address], [place] [address] Na 09/24/2019 136 135 - 145 mmol/L Final Testing performed at [facility];[address];[place] [address] K 09/24/2019 4.1 3.5 - 4.9 mmol/L Final Testing performed at [facility];[address] [facility];[place] [address] Cl 09/24/2019 104 99 - 109 mmol/L Final Testing performed at [facility];[address];[place] [address] CO2 09/24/2019 26 23 - 32 mmol/L Final Testing Performed at [facility], [address], [address], [place] [address] Anion Gap 09/24/2019 10 5 - 20 mmol/L Final Testing performed at [facility];[address];[place] [address] Glucose 09/24/2019 182* 65 - 99 mg/dL Final BUN 09/24/2019 13 8 - 25 mg/dL Final Creatinine 09/24/2019 0.75 0.50 - 1.00 mg/dL Final BUN/Creatinine Ratio 09/24/2019 17 Final Calcium 09/24/2019 9.6 8.5 - 10.5 mg/dL Final Protein, Total 09/24/2019 7.2 6.3 - 8.2 g/dL Final Albumin 09/24/2019 3.8 3.3 - 4.8 g/dL Final Globulin 09/24/2019 3.4 1.3 - 4.9 g/dL Final A/G Ratio 09/24/2019 1.1 1.0 - 2.4 Final BILIRUBIN, TOTAL 09/24/2019 0.5 0.1 - 1.5 mg/dL Final ALK PHOS 09/24/2019 73 35 - 115 U/L Final AST 09/24/2019 13 10 - 45 U/L Final ALT 09/24/2019 12 10 - 65 U/L Final Estimated GFR 09/24/2019 >60 >60 mL/min/1.73m2 Final Comment: GFR <60: CHRONIC KIDNEY DISEASE, IF FOUND OVER A 3 MONTH PERIOD. GFR <15: KIDNEY FAILURE. FOR AMERICANS, MULTIPLY THE CALCULATED GFR BY 1.210. This eGFR is calculated using the MDRD IDMS traceable equation. Testing Performed at [facility], [address], [address], [place] [address] Imaging: Assessment: ECO 59 yo lady with [...] examining the patient, review of medical records, family counselor ing, coordination of care, and CPOE. [...] | | | 2018 | | | [address] | | | | | | [place] | | | | | | [address] | | | | | | | | +--------+ + + + + | 11/26/ | Office | Oncology | Yancy Clifford MD | | | 2018 | Visit | | [address] | | | | | | [place] | | | | | | [address] | | | | | | | | | | | | [address] | | | | | | [place] [address] | | | | [address] | | | | | | [place] [address] | | | | | | [phone] | | | | | | | | +--------+ + + + + | 11/26/ | Appointment | Infusion Therapy | Yancy Clifford MD | | | 2018 | | | [address] | | | | | | [place] | | | | | | [address] | | | | | | | | +--------+ + + + + | 12/17/ | Appointment | Infusion Therapy | Yancy Clifford MD | | | 2019 | | | [address] | | | | | | [place] | | | | | | [address] | | | | | | | | +--------+ + + + + | 12/17/ | Office | Oncology | Yancy Clifford MD | | | 2019 | Visit | | [address] | | | | | | [place] | | | | | | [address] | | | | | | | | +--------+ + + + + | 12/17/ | Appointment | Infusion Therapy | Yancy Clifford MD | | | 2019 | | | [address] | | | | | | [place] | | | | | | [address] | | | | | | | | +--------+ + + + + + +------+--------+ + + | Name | Type | Priori | Associated Diagnoses | Order Schedule | | | | ty | | | + +------+--------+ + + | CA 125, Quant | Lab | Routin | Malignant neoplasm | monthly for 6 | | | | e | of left ovary (HCC) | Occurrences starting | | | | | Peritoneal | 09/24/2019 until | | | | | carcinomatosis (HCC) | 09/24/2020, 2 | | | | | Pleural effusion, | completed | | | | | malignant Encounter | | | | | | for antineoplastic | | | | | | chemotherapy and | | | | | | immunotherapy | | + +------+--------+ + + documented as [...] | LAB | | | | [facility] | | [facility] | | | | [...] | | | | | | TCL;[address] | | | | | [address];[place] [address] | | | | | | | | | | + + + + + + + + | Specimen | + + | Blood | + + + + + + + | Performing | Address | City/State/Zipcode | Phone Number | | Organization | | | | + + + + + | REFERENCE LAB | [address] [address] | [place] [address] | [phone] | | [facility] | Blvd. | | | | LABORATORY | | | | + + + + + | REFERENCE LAB | [address] | [place] [address] | | | [facility] | Blvd. | | | | LABORATORY | | | | + + + + + CA 125, Quant (10/15/2019 8:55 AM PST) + + + + + + | Component | Value | Ref Range | Performed | Pathologist | | | | | At | Signature | + + + + + + | CA125 | 34.5Comment: [facility] | 0 - 35 U/mL [...] | | | | | | TCL;[address] [facility] | | | | | | Blvd;[place] [address] | | | | | | | | | | + + + + + + + + | Specimen | + + | Blood | + + + + + + + | Performing | Address | City/State/Zipcode | Phone Number | | Organization | | | | + + + + + | REFERENCE LAB | [address] [place] [address] | [place] [address] | [phone] | | [facility] | Blvd. | | | | LABORATORY | | | | + + + + + | REFERENCE LAB | [address] [facility] | [place] [address] | | | [facility] | Blvd. | | | | LABORATORY | | | | + + + + + Urinalysis, Microscopic Only (09/24/2019 2:03 PM PDT) + + + + + + | Component | Value | Ref Range | Performed | Pathologist | | | | | At | Signature | + + + + + + | WBC UA | 3-5Comment: | 0 - 5 /hpf | REFERENCE [...] + + + + | CASTS | SEE BELOWComment: 3-5 | /lpf | REFERENCE | | | | HYALINE CASTTesting | | LAB | | | | performed at [facility];[address] | | [facility] | | | | [facility] | | LABORATORY | | | | Blvd;[place] [address] | | | | | | | | | | + + + + + + + + | Specimen | + + | | + + + + + + + | Performing | Address | City/State/Zipcode | Phone Number | | Organization | | | | + + + + + | REFERENCE LAB | [address] [place] [address] | [place] [address] | [phone] | | [facility] | Blvd. | | | | LABORATORY | | | | + + + + + | REFERENCE LAB | [address] [place] [address] | [place] [address] | | | [facility] | Blvd. | | | | LABORATORY | | | | + + + + + Protein, Urine, Random (09/24/2019 2:03 PM PDT) + + + + + + | Component | Value | Ref Range | Performed | Pathologist | | | | | At | Signature | + + + + + + | Protein, | 87Comment: NO NORMAL | mg/dL | REFERENCE | | | Urine | RANGE ESTABLISHEDTesting | | LAB | | | | performed at [facility];[address] | | [facility] | | | | [address] | | LABORATORY | | | | Blvd;[place] [address] | | | | | | | | | | + + + + + + + + | Specimen | + + | | + + + + + + + | Performing | Address | City/State/Zipcode | Phone Number | | Organization | | | | + + + + + | REFERENCE LAB | [address] [place] [address] | [place] [address] | [phone] | | [facility] | Blvd. | | | | LABORATORY | | | | + + + + + | REFERENCE LAB | [address] [place] [address] | [place] [address] | | | [facility] | Blvd. | | | | LABORATORY | | | | + + + + + Creatinine, Urine, Random (09/24/2019 2:03 PM PDT) + + + + + + | Component | Value | Ref Range | Performed | Pathologist | | | | | At | Signature | + + + + + + | Creatinine, | 251.0Comment: NO NORMAL | mg/dL | REFERENCE | | | random | RANGE ESTABLISHEDTesting | | LAB | | | urine | performed at [facility];[address] | | [facility] | | | | [facility] | | LABORATORY | | | | Blvd;[place], [place] [address] | | | | | | | | | | + + + + + + + + | Specimen | + + | | + + + + + + + | Performing | Address | City/State/Zipcode | Phone Number | | Organization | | | | + + + + + | REFERENCE LAB | [address] | [place] [address] | [phone] | | [facility] | Blvd. | | | | LABORATORY | | | | + + + + + | REFERENCE LAB | [address] | [place] [address] | | | [facility] | Blvd. | | | | LABORATORY | | | | + + + + + Urinalysis with Microscopic if Indicated (09/24/2019 2:03 PM PDT) + + + + + [...] + + + | Clarity, UA | CLOUDY | | REFERENCE | | | | | | LAB | | | | | | [facility] | | | | | | LABORATORY | | + + + + + + | Specific | 1.020 | 1.002 - 1.030 | REFERENCE | | | [place], | | | LAB | | | Urine | | | [facility] | | | | | | LABORATORY | | + + + + + + | Leukocyte | NEGATIVEComment: | NEG | REFERENCE | | | [...] + + + + | Urobilinoge | 2.0 (H) | <1.6 mg/dL | REFERENCE | | | n, [...] + + + | Glucose, Ur | NEGATIVE | NEG mg/dL | REFERENCE [...] + + + | REFERENCE LAB | [address] [place] [address] | [place] [address] | [phone] | | [facility] | Blvd. | | | | LABORATORY | | | | + + + + + | REFERENCE LAB | [address] [place] [address] | [place] [address] | | | [facility] | Blvd. | | | | LABORATORY | | | | + + + + + Protein/Creatinine Ratio, Urine (09/24/2019 2:03 PM PDT) + + + + + + | Component | Value | Ref Range | Performed | Pathologist | | | | | At | Signature | + + + + + + | PRO/CREA | 0.347Comment: Testing | | REFERENCE | | | RATIO,URINE | performed at [facility];[address] | | LAB | | | | [place] | | [facility] | | | | Blvd;[place] [address] | | LABORATORY | | + + + + + + + + | Specimen | + + | | + + + + + + + | Performing | Address | City/State/Zipcode | Phone Number | | Organization | | | | + + + + + | REFERENCE LAB | [address] [facility] [address] | [place] [address] | [phone] | | [facility] | Blvd. | | | | LABORATORY | | | | + + + + + | REFERENCE LAB | [address] [facility] [address] | [place] [address] | | | [facility] | Blvd. | [...]
--- OUTSIDE RECORDS SUMMARY | ~2019-11-22 | XMS | Encounter Summary ---
Demographics + + + | Address | [address] | | | [place] [address] | + + + | Home Phone [...] + + | Author | [facility] | | | and [place] | + + + | Organization | [facility] | | [...] | | | | | [place] [address] | | + + + + + | Emory Larios | ECON | Unknown | | + + + + + Care Team Providers + +------+ + | Care Elevator Mechanic Name | Role | Phone | + +------+ + PCP | Unavailable | + +------+ + Encounter Details +--------+ + + + + | Date | Type | Department | Care Team | Description | +--------+ + + + + | 01/15/ | Orders Only | [facility] | Yancy Clifford MD | | | 2019 | | HEMATOLOGY AND | [address] | | | | | ONCOLOGY INFUSIONS | [place], [place] | | | | | [address] | [address] | | | | | [address] [place] | | | | | | [address] | | | | | | [phone] | | | +--------+ + + + [...] [place] | | | | | | [address] | | | | | | | | +--------+ + + + + | 11/26/ | Office | Oncology | Yancy Clifford MD | | | 2018 | Visit | | [address] | | | | | | [place] | | | | | | [address] | | | | | | | | | | | | [address] | | | | | | [address] [address] | | | | | | [address] | | | | | | [place] [address] | | | | | | [phone] | | | | | | | | +--------+ + + + + | 11/26/ | Appointment | Infusion Therapy | Yancy Clifford MD | | | 2018 | | | [address] | | | | | | [place] | | | | | | [address] | | | | | | | | +--------+ + + + + | 12/17/ | Appointment | Infusion Therapy | Yancy Clifford MD | | | 2019 | | | [address] | | | | | | [place] | | | | | | [address] | | | | | | | | +--------+ + + + + | 12/17/ | Office | Oncology | Yancy Clifford MD | | | 2019 | Visit | | [address] | | | | | | [place] | | | | | | [address] | | | | | | | | +--------+ + + + + | 12/17/ | Appointment | Infusion Therapy | Yancy Clifford MD | | | 2019 | | | [address] | | | | | | [place] | | | | | | [address] | | | | | | | [...]
--- OUTSIDE RECORDS SUMMARY | ~2019-11-22 | XMS | Encounter Summary ---
Demographics + + + | Address | [address] | | | [place] [address] | + + + | Home Phone [...] | | | | [place] [address] | | + + + + + | Emory Larios | ECON | Unknown | | + + + + + Care Team Providers + +------+ + | Care Staff Interpreter Name | Role | Phone | + [...] 2019 | | [address] | Director Of Marketing | of left ovary (HCC) | | | | [place] | | | | | | [address] | | | | | | [phone] | | | +--------+ + + + [...] | | | 2019 | | | [address] | | | | | | [place] | | | | | | [address] | | | | | | | | +--------+ + + + + | 11/26/ | Office | Oncology | Yancy Clifford MD | | | 2018 | Visit | | [address] | | | | | | [place] | | | | | | [address] | | | | | | | | | | | | [address] | | | | | | [place] [address] | | | | | | [address] | | | | | | [place] [address] | | | | | | [phone] | | | | | | | | +--------+ + + + + | 11/26/ | Appointment | Infusion Therapy | Yancy Clifford MD | | | 2018 | | | [address] | | | | | | [place] | | | | | | [address] | | | | | | | | +--------+ + + + + | 12/17/ | Appointment | Infusion Therapy | Yancy Clifford MD | | | 2019 | | | [address] | | | | | | [place] | | | | | | [address] | | | | | | | | +--------+ + + + + | 12/17/ | Office | Oncology | Yancy Clifford MD | | | 2019 | Visit | | [address] | | | | | | [place] | | | | | | [address] | | | | | | | | +--------+ + + + + | 12/17/ | Appointment | Infusion Therapy | Yancy Clifford MD | | | 2019 | | | [address] | | | | | | [place] | | | | | | [address] | | | | | | | [...] at | | | | | | TCL;[address] [place] [address] | | | | | | Blvd;[place] [address] | | | | | | | | | | + + + + + + + + | Specimen | + + | Blood | + + + + + + + | Performing | Address | City/State/Zipcode | Phone Number | | Organization | | | | + + + + + | REFERENCE LAB | [address] [facility] [address] [facility] | [place] [address] | [phone] | | [facility] | Blvd. | | | | LABORATORY | | | | + + + + + | REFERENCE LAB | [address] [facility] | [place] [address] | | | [facility] | Blvd. | | | | LABORATORY | | | | + + + + + documented in this encounter Visit Diagnoses + + | Diagnosis | + + | Malignant neoplasm of left ovary (HCC) Malignant neoplasm of ovary | + + documented in this encounter"
--- OUTSIDE RECORDS SUMMARY | ~2019-11-22 | XMS | Encounter Summary ---
Demographics + + + | Address | [address] | | | [place] [address] | + + + | Home Phone | | + + + | Preferred Language | Unknown | + + + | Marital Status | | + + + | Sabianism Affiliation | Unknown | + + + | Race | Unknown | + + + | Ethnic Group | Unknown | + + + Author + + + | Author | [facility] | | | and [place] | + + + | Organization | [facility] | | | [...] | | | | [place] [address] | | + + + + + | Emory Larios | ECON | Unknown | | + + + + + Care Team Providers + +------+ + | Care Hr Associate Name | Role | Phone | + +------+ + PCP | Unavailable | + +------+ + Encounter Details +--------+ + + + + | Date | Type | Department | Care Team | Description | +--------+ + + + + | 01/01/ | Hospital | [facility] | Conversion | Constipation, | | 2019 | Encounter | [facility] [address] | Transaction, | unspecified | | | | [address] | Provider Unknown | constipation type; | | | | [place], [place] | [phone] | Malignant neoplasm | | | | [address] | | of left ovary (HCC); | | | | [phone] | Yancy Clifford MD [address] | Pleural effusion, | | | | | [address] | malignant | | | | | [place] [address] | | | | | | [phone] | | | | | | | [...] [place] | | | | | | [id number] | | | | | | | [...] | | | | | [place] [address] | | | | | | [phone] | | | | | | | | +--------+ + + + + | 11/26/ | Appointment | Infusion Therapy | Yancy Clifford MD | | | 2018 | | | [address] | | | | | | [place] | | | | | | [address] | | | | | | | | +--------+ + + + + | 12/17/ | Appointment | Infusion Therapy | Yancy Clifford MD | | | 2019 | | | [address] | | | | | | [place] | | | | | | [address] | | | | | | | | +--------+ + + + + | 12/17/ | Office | Oncology | Yancy Clifford MD | | | 2019 | Visit | | [address] | | | | | | [place] | | | | | | [address] | | | | | | | | +--------+ + + + + | 12/17/ | Appointment | Infusion Therapy | Yancy Clifford MD | | | 2019 | | | [address] | | | | | | [place] | | | | | | [address] | | | | | | | [...]
--- OUTSIDE RECORDS SUMMARY | ~2019-11-22 | XMS | Encounter Summary ---
Demographics + + + | Address | [address] [address] | | | [place] [address] | + + + | Home Phone [...] | | | | [place] [address] | | + + + + + | Emory Larios | ECON | Unknown | | + + + + + Care Team Providers + +------+ + | Care Tread Builder Name | Role | Phone | + +------+ + | Shannan Deng | PCP | | + +------+ + Encounter Details +--------+ + + + + | Date | Type | Department | Care Team | Description | +--------+ + + + + | 09/24/ | Hospital | [facility] | Yancy Clifford MD | 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) | | | | SERVICES [address] | [place] | (Primary Dx) | | | | [address] [place] | [id number] | | | | | [address] [place] | | | | | | [address] | Sushma Marquis | | | | | [phone] | Tiana RN | | +--------+ + [...] 1:44 PM PDTPort accessed for lab draw. benefits technician nique maintained throughout procedure. Saline locked, left accessed for treatment. Urine s ample obtained. do cumented in this encounter Plan of Treatment +--------+ + + + + | Date | Type | Specialty | Care Team | Description | +--------+ + + + + | 11/26/ | Appointment | Infusion Therapy | Yancy Clifford MD | | | 2018 | | | [address] | | | | | | [place] | | | | | | [address] | | | | | | | | +--------+ + + + + | 11/26/ | Office | Oncology | Yancy Clifford MD | | | 2018 | Visit | | [address] | | | | | | [place] | | | | | | [address] | | | | | | | | | | | | Jennyfer Calvert | | | | | | CIERRA Lou [address] | | | | | | [address] | | | | | | [place] [address] | | | | | | [phone] | | | | | | | | +--------+ + + + + | 11/26/ | Appointment | Infusion Therapy | Yancy Clifford MD | | | 2018 | | | [address] | | | | | | [place] | | | | | | [address] | | | | | | | | +--------+ + + + + | 12/17/ | Appointment | Infusion Therapy | Yancy Clifford MD | | | 2019 | | | [address] | | | | | | [place] | | | | | | [address] | | | | | | | | +--------+ + + + + | 12/17/ | Office | Oncology | Yancy Clifford MD | | | 2019 | Visit | | [address] | | | | | | [place] | | | | | | [address] | | | | | | | | +--------+ + + + + | 12/17/ | Appointment | Infusion Therapy | Yancy Clifford MD | | | 2019 | | | [address] | | | | | | [place] | | | | | | [address] | | | | | | | [...] [facility] | | | | Blvd;[place] [address] | | LABORATORY | | + + + + + + | K | 4.1Comment: Testing | 3.5 - 4.9 | REFERENCE | | | | performed at [facility];[address] | mmol/L | LAB | | | | [place] | | [facility] | | | | [address];[place] [address] | | LABORATORY | | + + + + + + | Cl | 104Comment: Testing | 99 - 109 mmol/L | REFERENCE | | | | performed at [facility];[address] | | LAB | | | | [place] | | [facility] | | | | Bl[address];[place] [address] | | LABORATORY | | + + + + + + | CO2 | 26Comment: Testing | 23 - 32 mmol/L | REFERENCE | | | | Performed at [facility], [address] | | LAB | | | | [facility] | | [facility] | | | | [address], [place] | | LABORATORY | | | | [address] | | | | + + + + + + | Anion Gap | 10Comment: Testing | 5 - 20 mmol/L | REFERENCE | | | | performed at [facility];[address] | | LAB | | | | [place] | | [facility] | | | | Bl[address];[place] [address] | | LABORATORY | | + + [...] | | | | | | [address], [place], [place] | | | | | | [address] | | | | + + + + + + + + | Specimen | + + | Blood | + + + + + + + | Performing | Address | City/State/Zipcode | Phone Number | | Organization | | | | + + + + + | REFERENCE LAB | [address] [place] [address] | [place] [address] | [phone] | | [facility] | Blvd. | | | | LABORATORY | | | | + + + + + | REFERENCE LAB | [address] [place] [address] | [place] [address] | | | [facility] | Blvd. | [...] | | LABORATORY | | | | [address] | | | | + + + + + + + + | Specimen | + + | Blood | + + + + + + + | Performing | Address | City/State/Zipcode | Phone Number | | Organization | | | | + + + + + | REFERENCE LAB | [address] [place], [place] [address] | [place] [address] | [phone] | | [facility] | Blvd. | | | | LABORATORY | | | | + + + + + | REFERENCE LAB | [address] [place], [place] [address] | [place] [address] | | | [facility] | Blvd. | [...]
--- OUTSIDE RECORDS SUMMARY | ~2019-11-22 | XMS | Encounter Summary ---
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 07/2017 Surgery S/p debulking surgery. Final pathology [...] MDRD IDMS traceable equation. Testing performed at [facility];[address];[place] [address] WBC 11/05/2019 7.80 3.80 - 11.00 K/uL [...] - 0.10 K/uL Final Testing Performed at [facility], [address], [address], [place] [address] PRO/CREA RATIO,URINE 11/05/2019 0.561 Final Testing performed at [facility];[address] [facility];[place] [address] Color, UA 11/05/2019 YELLOW Final Clarity, UA 11/05/2019 CLEAR Final Specific [place], Urine 11/05/2019 1.025 1.002 - 1.030 Final [...] NEGATIVE NEG mg/dL Final Testing Performed at [facility], [address] [facility], [address], [place] [address] Creatinine, random urine 11/05/2019 157.0 mg/dL Final Comment: NO NORMAL RANGE ESTABLISHED Testing performed at [facility];[address] [place] [address];[place] [address] Protein, Urine 11/05/2019 88 mg/dL Final Comment: NO NORMAL RANGE ESTABLISHED Testing performed at [facility];[address] [place] [address];[place] [address] WBC UA 11/05/2019 1-5 0 - 5 /hpf Final RBC UA 11/05/2019 0-2 0 - 5 /hpf Final SQUAMOUS EPITHELIAL UA 11/05/2019 50-100 /lpf Final BACTERIA UA 11/05/2019 2+* NONE Final MUCUS UA 11/05/2019 2+ Final CASTS 11/05/2019 1-5 /lpf Final Comment: HYALINE 0-2 FINE GRANULAR Testing Performed at [facility], [address] [facility] [address], [place] [address] Orders Only on 11/05/2019 Component Date Value Ref Range Status CA125 11/05/2019 44.6* 0 - 35 U/mL Final Comment: THE [facility]EMENS (FORMERLY ROGER) ADVIA CENTAUR IMMUNOASSAY METHOD IS USED. RESULTS OBTAINED WITH DIFFERENT ASSAY METHODS OR KITS CANNOT BE USED INTERCHANGEABLY. Testing performed at [facility];[address] [place] [address];[place] [address] Results for RAMILA BAXTER ( ) as [...] examining the patient, review of medical records, college admissions counselor ing, coordination of care, and CPOE. More than 50% of that time was spent in direct contact with the patient. [facility] Plan of Treatment +--------+ [...] [place] | | | | | | [address] | | | | | | | | +--------+ + + + + | 11/26/ | Office | Oncology | Yancy Clifford MD | | | 2018 | Visit | | [address] | | | | | | [place] | | | | | | [address] | | | | | | | | | | | | Jennyfer Calvert | | | | | | EVELINE LouP [address] | | | | | | [address] | | | | | | [place] [address] | | | | | | [phone] | | | | | | | | +--------+ + + + + | 11/26/ | Appointment | Infusion Therapy | Yancy Clifford MD | | | 2018 | | | [address] | | | | | | [place] | | | | | | [address] | | | | | | | | +--------+ + + + + | 12/17/ | Appointment | Infusion Therapy | Yancy Clifford MD | | | 2019 | | | [address] | | | | | | [place] | | | | | | [address] | | | | | | | | +--------+ + + + + | 12/17/ | Office | Oncology | Yancy Clifford MD | | | 2019 | Visit | | [address] | | | | | | [place] | | | | | | [address] | | | | | | | | +--------+ + + + + | 12/17/ | Appointment | Infusion Therapy | Yancy Clifford MD | | | 2019 | | | [address] | | | | | | [place] | | | | | | [address] | | | | | | | [...]
--- OUTSIDE RECORDS SUMMARY | ~2019-11-22 | XMS | Encounter Summary ---
Demographics + + + | Address | [address] [facility] [address] | | | [place] [address] | + + + | Home Phone [...] | | | | [place] [address] | | + + + + + | Emory Larios | ECON | Unknown | | + + + + + Care Team Providers + +------+ + | Care Technology Support Analyst Name | Role | Phone | [...] Provider Unknown | | | | | [place], [place] | [phone] | | | | | [address] | | | | | | [phone] | | | +--------+ + + + [...] [place] | | | | | | [id number] | | | | | | | | +--------+ + + + + | 11/26/ | Office | Oncology | Yancy Clifford MD | | | 2018 | Visit | | [address] | | | | | | [place] | | | | | | [address] | | | | | | | | | | | | Jennyfer Calvert | | | | | | CIERRA Lou [address] | | | | | | [address] | | | | | | [place] [address] | | | | | | [phone] | | | | | | | | +--------+ + + + + | 11/26/ | Appointment | Infusion Therapy | Yancy Clifford MD | | | 2018 | | | [address] | | | | | | [place] | | | | | | [address] | | | | | | | | +--------+ + + + + | 12/17/ | Appointment | Infusion Therapy | Yancy Clifford MD | | | 2019 | | | [address] | | | | | | [place] | | | | | | [address] | | | | | | | | +--------+ + + + + | 12/17/ | Office | Oncology | Yancy Clifford MD | | | 2019 | Visit | | [address] | | | | | | [place] | | | | | | [address] | | | | | | | | +--------+ + + + + | 12/17/ | Appointment | Infusion Therapy | Yancy Clifford MD | | | 2019 | | | [address] | | | | | | [place] | | | | | | [address] | | | | | | | | +--------+ + + + + documented as of this encounter Visit Diagnoses Not on filedocumented in this encounter"
--- OUTSIDE RECORDS SUMMARY | ~2019-11-22 | XMS | Encounter Summary ---
Demographics + + + | Address | [address] [address] [address] [address] | | | [place] [address] | + + + | Home Phone [...] | | | | [place] [address] | | + + + + + | Emory Larios | ECON | Unknown | | + + + + + Care Team Providers + +------+ + | Care Oxygen Therapist Name | Role | Phone | + +------+ + | Shannan Deng | PCP | | + +------+ + Encounter Details +--------+ + + + + | Date | Type | Department | Care Team | Description | +--------+ + + + + | 08/19/ | Orders Only | [facility] | Yancy Clifford MD | | | 2017 | | INFUSION SUPPORT | [address] | | | | | SERVICES [address] | [place], [place] | | | | | [address] [place] | [address] | | | | | [address] [place] | | | | | | [address] | | | | | | [phone] | | | +--------+ + + + [...] Filed: 08/19/1848 Encounter Date: 08/19/2018 Status: Signed Business Transformation Consultant: Bhakti Godfrey RN (Registered Nurse) Port accessed. [...] [place] | | | | | | [address] | | | | | | | | | | | | [address] [place] | | | | | | Carmine[address]ERRA [address] | | | | | | [address] | | | | | | [place] [address] | | | | | | [phone] | | | | | | | | +--------+ + + + + | 11/26/ | Appointment | Infusion Therapy | Yancy Clifford MD | | | 2018 | | | [address] | | | | | | [place] | | | | | | [address] | | | | | | | | +--------+ + + + + | 12/17/ | Appointment | Infusion Therapy | Yancy Clifford MD | | | 2019 | | | [address] | | | | | | [place] | | | | | | [address] | | | | | | | | +--------+ + + + + | 12/17/ | Office | Oncology | Yancy Clifford MD | | | 2019 | Visit | | [address] | | | | | | [place] | | | | | | [address] | | | | | | | | +--------+ + + + + | 12/17/ | Appointment | Infusion Therapy | Yancy Clifford MD | | | 2020 | | | [address] | | | | | | [place] | | | | | | [address] | | | | | | | [...]
--- OUTSIDE RECORDS SUMMARY | ~2019-11-22 | XMS | Encounter Summary ---
Demographics + + + | Address | [address] [facility] [address] | | | [place] [address] | + + + | Home Phone [...] | | | | [place] [address] | | + + + + + | Emory Larios | ECON | Unknown | | + + + + + Care Team Providers + +------+ + | Care Personnel Manager Name | Role | Phone | [...] + + | 08/19/ | Telephone | [facility] | Yuli Serna | Triage | | 2019 | | SUPPORT SERVICES | Brittany, BAY STOCKER [address] | | | | | [address] | [address] | | | | | [address] | [place] [address] | | | | | [place], [place] | [phone] | | | | | [address] | | | | | | [phone] | | | +--------+ + + + [...] [place] | | | | | | [address] | | | | | | | | +--------+ + + + + | 11/26/ | Office | Oncology | Yancy Clifford MD | | | 2018 | Visit | | [address] | | | | | | [place] | | | | | | [address] | | | | | | | | | | | | Jennyfer Calvert | | | | | | Carmine, BRACER [address] | | | | | | [address] | | | | | | [place] [address] | | | | | | [phone] | | | | | | | | +--------+ + + + + | 11/26/ | Appointment | Infusion Therapy | Yancy Clifford MD | | | 2018 | | | [address] | | | | | | [place] | | | | | | [address] | | | | | | | | +--------+ + + + + | 12/17/ | Appointment | Infusion Therapy | Yancy Clifford MD | | | 2019 | | | [address] | | | | | | [place] | | | | | | [address] | | | | | | | | +--------+ + + + + | 12/17/ | Office | Oncology | Yancy Clifford MD | | | 2019 | Visit | | [address] | | | | | | [place] | | | | | | [address] | | | | | | | | +--------+ + + + + | 12/17/ | Appointment | Infusion Therapy | Yancy Clifford MD | | | 2019 | | | [address] | | | | | | [place] | | | | | | [address] | | | | | | | | +--------+ + + + + documented as of this encounter Visit Diagnoses Not on filedocumented in this encounter"
--- OUTSIDE RECORDS SUMMARY | ~2019-11-22 | XMS | Encounter Summary ---
Demographics + + + | Address | [address] [facility] [address] | | | [place] [address] | + + + | Home Phone | | + + + | Preferred Language | Unknown | + + + | Marital Status | | + + + | Amish Affiliation | Unknown | + + + [...] | | | | [place] [address] | | + + + + + | Emory Larios | ECON | Unknown | | + + + + + Care Team Providers + +------+ + | Care Ground Support Equipment Mechanic Name | Role | Phone | + +------+ + PCP | Unavailable | + +------+ + Encounter Details +--------+ + + + + | Date | Type | Department | Care Team | Description | +--------+ + + + + | 06/14/ | Hospital | [facility] | Conversion | Back pain, | | 2015 | Encounter | CONVERSION [address] | Transaction, | unspecified location | | | | [address] | Provider Unknown | | | | | [place], [place] | | | | | | [address] | (Fax) | | | | | [...] [place] | | | | | | [phone] | | | | | | | | +--------+ + + + + | 11/26/ | Office | Oncology | Yancy Clifford MD | | | 2018 | Visit | | [address] | | | | | | [place] | | | | | | [phone] | | | | | | | | | | | | Jennyfer Calvert | | | | | | CIERRA Lou [address] | | | | | | [address] | | | | | | [place] [address] | | | | | | [phone] | | | | | | | | +--------+ + + + + | 11/26/ | Appointment | Infusion Therapy | Yancy Clifford MD | | | 2018 | | | [address] | | | | | | [place] | | | | | | [address] | | | | | | | | +--------+ + + + + | 12/17/ | Appointment | Infusion Therapy | Yancy Clifford MD | | | 2019 | | | [address] | | | | | | [place] | | | | | | [address] | | | | | | | | +--------+ + + + + | 12/17/ | Office | Oncology | Yancy Clifford MD | | | 2019 | Visit | | [address] | | | | | | [place] | | | | | | [address] | | | | | | | | +--------+ + + + + | 12/17/ | Appointment | Infusion Therapy | Yancy Clifford MD | | | 2020 | | | [address] | | | | | | [place] | | | | | | [address] | | | | | | | [...] Note | + + | Chris Mireles Aissatou - 07/17/2019 9:29 AM PDT This is a non-reportable procedure | | without a radiologist report and isused for image storage only | + + documented in this encounter Visit Diagnoses + + | Diagnosis | + + | Back pain, unspecified location | + + documented in this encounter"
--- OUTSIDE RECORDS SUMMARY | ~2019-11-22 | XMS | Encounter Summary ---
Demographics + + + | Address | [address] [facility] [address] | | | [place] [address] | + + + | Home Phone | | + + + | Preferred Language | Unknown | + + + | Marital Status | | + + + | Religion Affiliation | Unknown | + + + [...] | | | | [place] [address] | | + + + + + | Emory Larios | ECON | Unknown | | + + + + + Care Team Providers + +------+ + | Care Hydrogen Plant Operator Name | Role | Phone | + +------+ + | Shannan Deng | PCP | | + +------+ + Encounter Details +--------+ + + + + | Date | Type | Department | Care Team | Description | +--------+ + + + + | 07/16/ | Orders Only | [facility] | Sushma Marquis | Malignant neoplasm | | 2019 | | INFUSION SUPPORT | A, RN | of left ovary (HCC) | | | | SERVICES [address] | | (Primary Dx) | | | | [address] | | | | | | [address] [place] | | | | | | [address] | | | | | | [phone] | | | +--------+ + + + [...] | 2018 | | | [address] | | | | | | [place] | | | | | | [phone] | | | | | | | | +--------+ + + + + | 11/26/ | Office | Oncology | Yancy Clifford MD | | | 2018 | Visit | | [address] | | | | | | [place] | | | | | | [address] | | | | | | | | | | | | Jennyfer Calvert | | | | | | CIERRA Lou [address] | | | | | | [address] | | | | | | [place] [address] | | | | | | [phone] | | | | | | | | +--------+ + + + + | 11/26/ | Appointment | Infusion Therapy | Yancy Clifford MD | | | 2018 | | | [address] | | | | | | [place] | | | | | | [address] | | | | | | | | +--------+ + + + + | 12/17/ | Appointment | Infusion Therapy | Yancy Clifford MD | | | 2019 | | | [address] | | | | | | [place] | | | | | | [address] | | | | | | | | +--------+ + + + + | 12/17/ | Office | Oncology | Yancy Clifford MD | | | 2019 | Visit | | [address] | | | | | | [place] | | | | | | [address] | | | | | | | | +--------+ + + + + | 12/17/ | Appointment | Infusion Therapy | Yancy Clifford MD | | | 2020 | | | [address] | | | | | | [place] | | | | | | [address] | | | | | | | | +--------+ + + + + documented as of this encounter Visit Diagnoses + + | Diagnosis | + + | 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
--- OUTSIDE RECORDS SUMMARY | ~2019-11-22 | XMS | Encounter Summary ---
Demographics + + + | Address | [address] [address] [facility] [address] | | | [place] [address] | + + + | Home Phone [...] | | | | [place] [address] | | + + + + + | Emory Larios | ECON | Unknown | | + + + + + Care Team Providers + +------+ + | Care Heater Furnace Name | Role | Phone | + +------+ + PCP | Unavailable | + +------+ + Encounter Details +--------+ + + + + | Date | Type | Department | Care Team | Description | +--------+ + + + + | 04/23/ | Emergency | [facility] | Claude Salinas MD | Epistaxis; | | 2019 | | MEDICAL CENTER | [address] | Thrombocytopenia | | | | EMERGENCY CENTER | [place] [address] | (HCC); Maintenance | | | | [address] | [phone] | chemotherapy; | | | | [place], [place] | | Pancytopenia due to | | | | [address] | | chemotherapy ([facility]) | | | | [phone] | | | +--------+ + + + [...] [place] | | | | | | [id number] | | | | | | | [...] | | | | | [place] [address] | | | | | | [phone] | | | | | | | | +--------+ + + + + | 11/26/ | Appointment | Infusion Therapy | Yancy Clifford MD | | | 2018 | | | [address] | | | | | | [place] | | | | | | [address] | | | | | | | | +--------+ + + + + | 12/17/ | Appointment | Infusion Therapy | Yancy Clifford MD | | | 2019 | | | [address] | | | | | | [place] | | | | | | [address] | | | | | | | | +--------+ + + + + | 12/17/ | Office | Oncology | Yancy Clifford MD | | | 2019 | Visit | | [address] | | | | | | [place] | | | | | | [address] | | | | | | | | +--------+ + + + + | 12/17/ | Appointment | Infusion Therapy | Yancy Clifford MD | | | 2019 | | | [address] | | | | | | [place] | | | | | | [address] | | | | | | | [...] | | | | | performed at [facility];[address] | | | | | | [facility];[place], [place] | | | | | | [address] | | | | + + + [...] | | LAB | | | | [facility];[address] | | | | | | [address];[place] [address] | | | | + + + [...] | | | | | performed at [facility];[address] | | | | | | [address] [facility];[place], [place] | | | | | | [address] | | | | + + + [...]
--- OUTSIDE RECORDS SUMMARY | ~2019-11-22 | XMS | Encounter Summary ---
Demographics + + + | Address | [address] | | | [place] [address] | + + + | Home Phone [...] | | | | [place] [address] | | + + + + + | Emory Larios | ECON | Unknown | | + + + + + Care Team Providers + +------+ + | Care Stores Naval Name | Role | Phone | + [...] Closed | | Radiology | Diagnoses | [place], | [facility] [address] | | | | | Malignant | Jennyfer M, | [address] | | | | | neoplasm of | CANVAS WORKER [address] | [place], [place] | | | | | left ovary | [address] | [address] | | | | | (HCC) | AVE | Phone: | | | | | Procedures | [place], | [phone] | | | | | CT Chest | [place] [address] | Fax: | | | | | Abdomen | Phone: | [phone] | | | | | Pelvis w | [phone] | | | | | | Contrast | Fax: | | | | | | | [phone] | | +--------+--------+ + + + + Reason for Visit Diagnostic/Screening (Urgent) +--------+--------+ + + + + | Status | Reason | Specialty | Diagnoses / | Referred By | Referred To | | | | | Procedures | Contact | Contact | +--------+--------+ + + + + | Closed | | Radiology | Diagnoses | [place], | [facility] [address] | | | | | Malignant | Jennyfer Lou, | [address] | | | | | neoplasm of | CANVAS WORKER [address] | [place], [place] | | | | | left ovary | [address] | [address] | | | | | (HCC) | AVE | Phone: | | | | | Procedures | [place], | [phone] | | | | | CT Chest | [place] [address] | Fax: | | | | | Abdomen | Phone: | [phone] | | | | | Pelvis w | [phone] | | | | | | Contrast | Fax: | | | | | | | [phone] | | +--------+--------+ + + + + Encounter Details +--------+ + + + + | Date | Type | Department | Care Team | Description | +--------+ + + + + | 10/16/ | Hospital | [facility] | Jennyfer Calvert | Malignant neoplasm | | 2019 | Encounter | [facility] [address] | M, CANVAS WORKER [address] | of left ovary (HCC) | | | | [address] | [address] | | | | | [place], [place] | [place] [address] | | | | | [address] | [phone] | | | | | [phone] | | | +--------+ + + + [...] [place] | | | | | | [id number] | | | | | | | | +--------+ + + + + | 11/26/ | Office | Oncology | Yancy Clifford MD | | | 2018 | Visit | | [address] | | | | | | [place] | | | | | | [id number] | | | | | | | | | | | | Jennyfer Calvert | | | | | | [address] | | | | | | [address] | | | | | | [place] [address] | | | | | | [phone] | | | | | | | | +--------+ + + + + | 11/26/ | Appointment | Infusion Therapy | Yancy Clifford MD | | | 2018 | | | [address] | | | | | | [place] | | | | | | [address] | | | | | | | | +--------+ + + + + | 12/17/ | Appointment | Infusion Therapy | Yancy Clifford MD | | | 2019 | | | [address] | | | | | | [place] | | | | | | [address] | | | | | | | | +--------+ + + + + | 12/17/ | Office | Oncology | Yancy Clifford MD | | | 2019 | Visit | | [address] | | | | | | [place] | | | | | | [address] | | | | | | | | +--------+ + + + + | 12/17/ | Appointment | Infusion Therapy | Yancy Clifford MD | | | 2020 | | | [address] | | | | | | [place] | | | | | | [address] | | | | | | | [...] | | | | Signed by: Catracho Chinchilla, Tom | | Sign Date/Time: 10/16/2019 2:47 PM [...] heparin 10 units/mL flush | Given | 11/15/20 | 50 Units | | | | injection 50 Units 50 Units (5 | | 19 2:20 | | | | | mL), Intracatheter, PRN, Line | | PM PST | | | | | Care, Starting Sat10/16/19 at | | | | | | [...] PST | | | | | Starting Sat10/16/19 at 1344, | | | | | | | For 1 dose, Cat Scanner | | | | | | + +-------+ +---------+---+---+ +---+---+ | | | +---+---+ documented in this encounter"
--- OUTSIDE RECORDS SUMMARY | ~2019-11-22 | XMS | Encounter Summary ---
Demographics + + + | Address | [address] | | | [place] [address] | + + + | Home Phone | | + + + | Preferred Language | Unknown | + + + | Marital Status | | + + + | Hoahaoism Affiliation | Unknown | + + + | Race | Unknown | + + + | Ethnic Group | Unknown | + + + Author + + + | Author | [facility] | | | and [place] | + + + | Organization | [facility] | | [...] | | | | [place] [address] | | + + + + + | Emory Larios | ECON | Unknown | | + + + + + Care Team Providers + +------+ + | Care Cert Occupational Therapy Asst Name | Role | Phone | + +------+ + | Shannan Deng | PCP | | + +------+ + Encounter Details +--------+ + + + + | Date | Type | Department | Care Team | Description | +--------+ + + + + | 07/16/ | Orders Only | [facility] | Sushma Marquis | Malignant neoplasm | | 2019 | | INFUSION SUPPORT | A, RN | of left ovary (HCC) | | | | SERVICES [address] | | (Primary Dx) | | | | [address] | | | | | | [address] [place] | | | | | | [address] | | | | | | [phone] | | | +--------+ + + + [...] [place] | | | | | | [id number] | | | | | | | | +--------+ + + + + | 11/26/ | Office | Oncology | Yancy Clifford MD | | | 2018 | Visit | | [address] | | | | | | [place] | | | | | | [address] | | | | | | | | | | | | Jennyfer Calvert | | | | | | [address] | | | | | | [address] | | | | | | [place] [address] | | | | | | [phone] | | | | | | | | +--------+ + + + + | 11/26/ | Appointment | Infusion Therapy | Yancy Clifford MD | | | 2018 | | | [address] | | | | | | [place] | | | | | | [address] | | | | | | | | +--------+ + + + + | 12/17/ | Appointment | Infusion Therapy | Yancy Clifford MD | | | 2019 | | | [address] | | | | | | [place] | | | | | | [address] | | | | | | | | +--------+ + + + + | 12/17/ | Office | Oncology | Yancy Clifford MD | | | 2019 | Visit | | [address] | | | | | | [place] | | | | | | [address] | | | | | | | | +--------+ + + + + | 12/17/ | Appointment | Infusion Therapy | Yancy Clifford MD | | | 2020 | | | [address] | | | | | | [place] | | | | | | [address] | | | | | | | | +--------+ + + + + documented as of this encounter Visit Diagnoses + + | Diagnosis | + + | 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
--- OUTSIDE RECORDS SUMMARY | ~2019-11-22 | XMS | Encounter Summary ---
Demographics + + + | Address | [address] | | | [place] [address] | + + + | Home Phone [...] | | | | [place] [address] | | + + + + + | Emory Larios | ECON | Unknown | | + + + + + Care Team Providers + +------+ + | Care Hebrew Teacher Name | Role | Phone | + +------+ + | Shannan Deng | PCP | | + +------+ + Encounter Details +--------+ + + + + | Date | Type | Department | Care Team | Description | +--------+ + + + + | 07/17/ | Orders Only | [facility] | Scott Boswell MD | Moderate persistent | | 2019 | | PULMONOLOGY [address] | [address] | asthma, | | | | [address] | [place], [place] | uncomplicated; | | | | [place], [place] | [address] | Malignant neoplasm | | | | [address] | | of left ovary (HCC) | | | | [phone] | | | +--------+ + + + [...] [place] | | | | | | [phone] | | | | | | | | +--------+ + + + + | 11/26/ | Office | Oncology | Yancy Clifford MD | | | 2018 | Visit | | [address] | | | | | | [place] | | | | | | [address] | | | | | | | | | | | | Jennyfer Calvert | | | | | | [address] | | | | | | [address] | | | | | | [place] [address] | | | | | | [phone] | | | | | | | | +--------+ + + + + | 11/26/ | Appointment | Infusion Therapy | Yancy Clifford MD | | | 2018 | | | [address] | | | | | | [place] | | | | | | [address] | | | | | | | | +--------+ + + + + | 12/17/ | Appointment | Infusion Therapy | Yancy Clifford MD | | | 2019 | | | [address] | | | | | | [place] | | | | | | [address] | | | | | | | | +--------+ + + + + | 12/17/ | Office | Oncology | Yancy Clifford MD | | | 2019 | Visit | | [address] | | | | | | [place] | | | | | | [address] | | | | | | | | +--------+ + + + + | 12/17/ | Appointment | Infusion Therapy | Yancy Clifford MD | | | 2019 | | | [address] | | | | | | [place] | | | | | | [address] | | | | | | | [...] Routin | Moderate | Expected: | | [place] | | e | persistent asthma, | [...]
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
--- OUTSIDE RECORDS SUMMARY | ~2019-11-22 | XMS | Encounter Summary ---
Demographics + + + | Address | [address] | | | [place] [address] | + + + | Home Phone | | + + + | Preferred Language | Unknown | + + + | Marital Status | | + + + | Hinduism Affiliation | Unknown | + + + [...] | | | | [place] [address] | | + + + + + | Emory Larios | ECON | Unknown | | + + + + + Care Team Providers + +------+ + | Care Renewable Energy Consultant Name | Role | Phone | [...] + + | 09/24/ | Office | [facility] | Yancy Clifford MD | Malignant neoplasm | | 2019 | Visit | HEMATOLOGY AND | [address] | of left ovary (HCC) | | | | ONCOLOGY [address] | [place] | (Primary Dx); | | | | [address] | [address] | 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 07/2017 Surgery S/p debulking surgery. Final pathology [...] - 0.10 K/uL Final Testing Performed at [facility], [address], [place] [address] Na 09/24/2019 136 135 - 145 mmol/L Final Testing performed at [facility];[address];[place] [address] K 09/24/2019 4.1 3.5 - 4.9 mmol/L Final Testing performed at [facility];[address] [facility];[place] [address] Cl 09/24/2019 104 99 - 109 mmol/L Final Testing performed at [facility];[address] [facility];[place] [address] CO2 09/24/2019 26 23 - 32 mmol/L Final Testing Performed at [facility], [address], [place] [address] Anion Gap 09/24/2019 10 5 - 20 mmol/L Final Testing performed at [facility];[address] [facility];[place] [address] Glucose 09/24/2019 182* 65 - 99 mg/dL [...] MDRD IDMS traceable equation. Testing Performed at [facility], [address], [address], [place] [address] Imaging: Assessment: ECO 59 yo lady with [...] examining the patient, review of medical records, substance abuse counselor ing, coordination of care, and CPOE. [...] | | | 2018 | | | [address] | | | | | | [place] | | | | | | [address] | | | | | | | | +--------+ + + + + | 11/26/ | Office | Oncology | Yancy Clifford MD | | | 2018 | Visit | | [address] | | | | | | [place] | | | | | | [address] | | | | | | | | | | | | Jennyfer Calvert | | | | | | [address] | | | | | | [address] | | | | | | [place] [address] | | | | | | [phone] | | | | | | | | +--------+ + + + + | 11/26/ | Appointment | Infusion Therapy | Yancy Clifford MD | | | 2018 | | | [address] | | | | | | [place] | | | | | | [address] | | | | | | | | +--------+ + + + + | 12/17/ | Appointment | Infusion Therapy | Yancy Clifford MD | | | 2019 | | | [address] | | | | | | [place] | | | | | | [address] | | | | | | | | +--------+ + + + + | 12/17/ | Office | Oncology | Yancy Clifford MD | | | 2019 | Visit | | [address] | | | | | | [place] | | | | | | [address] | | | | | | | | +--------+ + + + + | 12/17/ | Appointment | Infusion Therapy | Yancy Clifford MD | | | 2019 | | | [address] | | | | | | [place] | | | | | | [address] | | | | | | | [...] | LAB | | | | [facility] | | [facility] | | | | [...] | | | | | | TCL;[address] | | | | | Blvd;[place] [address] | | | | | | | | | | + + + + + + + + | Specimen | + + | Blood | + + + + + + + | Performing | Address | City/State/Zipcode | Phone Number | | Organization | | | | + + + + + | REFERENCE LAB | [address] [facility] | [place] [address] | [phone] | | [facility] | Blvd. | | | | LABORATORY | | | | + + + + + | REFERENCE LAB | [address] [facility] | [place] [address] | | | [facility] | Blvd. | [...] | | | | | | [facility];[address] [facility] | | | | | | Blvd;[place] [address] | | | | | | | | | | + + + + + + + + | Specimen | + + | Blood | + + + + + + + | Performing | Address | City/State/Zipcode | Phone Number | | Organization | | | | + + + + + | REFERENCE LAB | [address] [place] [address] | [place] [address] | [phone] | | [facility] | Blvd. | | | | LABORATORY | | | | + + + + + | REFERENCE LAB | [address] [facility] | [place] [address] | | | [facility] | Blvd. | [...] LAB | | | | performed at [facility];[address] | | [facility] | | | | [facility] | | LABORATORY | | | | Blvd;[place] [address] | | | | | | | | | | + + + + + + + + | Specimen | + + | | + + + + + + + | Performing | Address | City/State/Zipcode | Phone Number | | Organization | | | | + + + + + | REFERENCE LAB | [address] [place] [address] | [place] [address] | [phone] | | [facility] | Blvd. | | | | LABORATORY | | | | + + + + + | REFERENCE LAB | [address] [place] [address] | [place] [address] | | | [facility] | Blvd. | [...] LAB | | | | performed at [facility];[address] | | [facility] | | | | [address] | | LABORATORY | | | | Blvd;[place] [address] | | | | | | | | | | + + + + + + + + | Specimen | + + | | + + + + + + + | Performing | Address | City/State/Zipcode | Phone Number | | Organization | | | | + + + + + | REFERENCE LAB | [address] [place] [address] | [place] [address] | [phone] | | [facility] | Blvd. | | | | LABORATORY | | | | + + + + + | REFERENCE LAB | [address] [place] [address] | [place] [address] | | | [facility] | Blvd. | [...] | | | urine | performed at [facility];[address] | | [facility] | | | | [facility] | | LABORATORY | | | | Blvd;[place], [place] [address] | | | | | | | | | | + + + + + + + + | Specimen | + + | | + + + + + + + | Performing | Address | City/State/Zipcode | Phone Number | | Organization | | | | + + + + + | REFERENCE LAB | [address] | [place] [address] | [phone] | | [facility] | Blvd. | | | | LABORATORY | | | | + + + + + | REFERENCE LAB | [address] | [place] [address] | | | [facility] | Blvd. | [...] - 1.030 | REFERENCE | | | [place], | | | LAB | | | [...] + + + | REFERENCE LAB | [address] [place] [address] | [place] [address] | [phone] | | [facility] | Blvd. | | | | LABORATORY | | | | + + + + + | REFERENCE LAB | [address] [place] [address] | [place] [address] | | | [facility] | Blvd. | [...] | | | RATIO,URINE | performed at [facility];[address] | | LAB | | | | [place] | | [facility] | | | | Blvd;[place] [address] | | LABORATORY | | + + + + + + + + | Specimen | + + | | + + + + + + + | Performing | Address | City/State/Zipcode | Phone Number | | Organization | | | | + + + + + | REFERENCE LAB | [address] [facility] | [place] [address] | [phone] | | [facility] | Blvd. | | | | LABORATORY | | | | + + + + + | REFERENCE LAB | [address] [facility] | [place] [address] | | | [facility] | Blvd[address] | [...]
--- OUTSIDE RECORDS SUMMARY | ~2019-11-22 | XMS | Encounter Summary ---
Demographics + + + | Address | [address] | | | [place] [address] | + + + | Home Phone [...] | | | | [place] [address] | | + + + + + | Emory Larios | ECON | Unknown | | + + + + + Care Team Providers + +------+ + | Care Natural Resource Economist Name | Role | Phone | + +------+ + | Shannan Deng | PCP | | + +------+ + Encounter Details +--------+ + + + + | Date | Type | Department | Care Team | Description | +--------+ + + + + | 05/12/ | Orders Only | [facility] | Yancy Clifford MD | | | 2018 | | [address] [facility] | [address] | | | | | [facility] | [place] | | | | | [address] | [id number] | | | | | [phone] | | | +--------+ + + + [...] [place] | | | | | | [address] | | | | | | | | +--------+ + + + + | 11/26/ | Office | Oncology | Yancy Clifford MD | | | 2018 | Visit | | [address] | | | | | | [place] | | | | | | [address] | | | | | | | | | | | | Jennyfer Calvert | | | | | | CIERRA Lou [address] | | | | | | [address] | | | | | | [place] [address] | | | | | | [phone] | | | | | | | | +--------+ + + + + | 11/26/ | Appointment | Infusion Therapy | Yancy Clifford MD | | | 2018 | | | [address] | | | | | | [place] | | | | | | [address] | | | | | | | | +--------+ + + + + | 12/17/ | Appointment | Infusion Therapy | Yancy Clifford MD | | | 2019 | | | [address] | | | | | | [place] | | | | | | [address] | | | | | | | | +--------+ + + + + | 12/17/ | Office | Oncology | Yancy Clifford MD | | | 2019 | Visit | | [address] | | | | | | [place] | | | | | | [address] | | | | | | | | +--------+ + + + + | 12/17/ | Appointment | Infusion Therapy | Yancy Clifford MD | | | 2019 | | | [address] | | | | | | [place] | | | | | | [address] | | | | | | | [...]
--- OUTSIDE RECORDS SUMMARY | ~2019-11-22 | XMS | Encounter Summary ---
Demographics + + + | Address | [address] | | | [place] [address] | + + + | Home Phone | | + + + | Preferred Language | Unknown | + + + | Marital Status | | + + + | Buddhism Affiliation | Unknown | + + + [...] | | | | [place] [address] | | + + + + + | Emory Larios | ECON | Unknown | | + + + + + Care Team Providers + +------+ + | Care Filler Shredding Machine Loader Name | Role | Phone | + +------+ + | Shannan Deng | PCP | | + +------+ + Encounter Details +--------+ + + + + | Date | Type | Department | Care Team | Description | +--------+ + + + + | 07/23/ | Orders Only | [facility] | CrockerYumiko pichardo, | Malignant neoplasm | | 2019 | | HEMATOLOGY AND | RN | of left ovary (HCC) | | | | ONCOLOGY [address] | | (Primary Dx) | | | | [address] | | | | | | [place] | | | | | | [address] | | | | | | [phone] | | | +--------+ + + + [...] [place] | | | | | | [id number] | | | | | | | | +--------+ + + + + | 11/26/ | Office | Oncology | Yancy Clifford MD | | | 2019 | Visit | | [address] | | | | | | [place] | | | | | | [address] | | | | | | | | | | | | Jennyfer Calvert | | | | | | EVELINE LouP [address] | | | | | | [address] | | | | | | [place] [address] | | | | | | [phone] | | | | | | | | +--------+ + + + + | 11/26/ | Appointment | Infusion Therapy | Yancy Clifford MD | | | 2018 | | | [address] | | | | | | [place] | | | | | | [address] | | | | | | | | +--------+ + + + + | 12/17/ | Appointment | Infusion Therapy | Yancy Clifford MD | | | 2019 | | | [address] | | | | | | [place] | | | | | | [address] | | | | | | | | +--------+ + + + + | 12/17/ | Office | Oncology | Yancy Clifford MD | | | 2019 | Visit | | [address] | | | | | | [place] | | | | | | [address] | | | | | | | | +--------+ + + + + | 12/17/ | Appointment | Infusion Therapy | Yancy Clifford MD | | | 2020 | | | [address] | | | | | | [place] | | | | | | [address] | | | | | | | | +--------+ + + + + documented as of this encounter Visit Diagnoses + + | Diagnosis | + + | 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
--- OUTSIDE RECORDS SUMMARY | ~2019-11-22 | XMS | Encounter Summary ---
Demographics + + + | Address | [address] | | | [place] [address] | + + + | Home Phone [...] | | | | | [place] [address] | | + + + + + | Emory Larios | ECON | Unknown | | + + + + + Care Team Providers + +------+ + | Care Shipping And Receiving Operator Name | Role | Phone | + +------+ + PCP | Unavailable | + +------+ + Encounter Details +--------+ + + + + | Date | Type | Department | Care Team | Description | +--------+ + + + + | 06/11/ | Orders Only | [facility] | Yancy Clifford MD | | | 2018 | | INFUSION SUPPORT | [address] | | | | | SERVICES [address] | [place], [place] | | | | | [address] [place] | [address] | | | | | [address] [place] | | | | | | [address] | | | | | | [phone] | | | +--------+ + + + [...] Notes by Sushma Mcfarlane RN at 06/11/19 2995 Author: Sushma Mcfarlane RN Service: (none) Author Type: Registered Nurse Filed: 06/11/19 1337 Encounter Date: 06/11/2019 Status: Signed [employer] Worker: Sushma Mcfarlane RN (Registered Nurse) Port accessed [...] | | | | | [place] [address] | | | | | | [phone] | | | | | | | | +--------+ + + + + | 11/26/ | Appointment | Infusion Therapy | Yancy Clifford MD | | | 2018 | | | [address] | | | | | | [place] | | | | | | [address] | | | | | | | | +--------+ + + + + | 12/17/ | Appointment | Infusion Therapy | Yanyc Clifford MD | | | 2019 | | | [address] | | | | | | [place] | | | | | | [address] | | | | | | | | +--------+ + + + + | 12/17/ | Office | Oncology | Yancy Clifford MD | | | 2019 | Visit | | [address] | | | | | | [place] | | | | | | [address] | | | | | | | | +--------+ + + + + | 12/17/ | Appointment | Infusion Therapy | Yancy Clifford MD | | | 2020 | | | [address] | | | | | | [place] | | | | | | [address] | | | | | | | [...] - 1.030 | EXTERNAL | | | [place] | | | LAB | | + [...]
--- OUTSIDE RECORDS SUMMARY | ~2019-11-22 | XMS | Encounter Summary ---
Demographics + + + | Address | [address] | | | [place] [address] | + + + | Home Phone | | + + + | Preferred Language | Unknown | + + + | Marital Status | | + + + | Zoroastrianism Affiliation | Unknown | + + + [...] | | | | [place] [address] | | + + + + + | Emory Larios | ECON | Unknown | | + + + + + Care Team Providers + +------+ + | Care Belly Dancer Name | Role | Phone | + [...] | | | (HCC) | AVE | [place] | | | | | Encounter | [place], | [address] | | | | | for | [place] [address] | Phone: | | | | | antineoplast | Phone: | [phone] | | | | | ic | [phone] | Fax: | | | | | chemotherapy | Fax: | [phone] | | | | | Peritoneal | [phone] | | | | | | | [...] + + | 08/13/ | Office | [facility] | Scott Boswell MD | Personal history of | | 2019 | Visit | PULMONOLOGY [address] | tobacco use, | | | | [address] | [place], [place] | presenting hazards | | | | [place], [place] | [address] | to health (Primary | | | | [address] | | Dx); Mild | | | | [phone] | | intermittent asthma, | | | [...] Boswell MD Pulmonary and Critical Care Medicine [facility] [address] [facility] , [place] [address] documented in this enco unter Plan of [...] [place] | | | | | | [address] | | | | | | | | +--------+ + + + + | 11/26/ | Office | Oncology | Yancy Clifford MD | | | 2018 | Visit | | [address] | | | | | | [place] | | | | | | [address] | | | | | | | | | | | | Jennyfer Calvert | | | | | | CIERRA Lou [address] | | | | | | [address] | | | | | | [place] [address] | | | | | | [phone] | | | | | | | | +--------+ + + + + | 11/26/ | Appointment | Infusion Therapy | Yancy Clifford MD | | | 2018 | | | [address] | | | | | | [place] | | | | | | [address] | | | | | | | | +--------+ + + + + | 12/17/ | Appointment | Infusion Therapy | Yancy Clifford MD | | | 2019 | | | [address] | | | | | | [place] | | | | | | [address] | | | | | | | | +--------+ + + + + | 12/17/ | Office | Oncology | Yancy Clifford MD | | | 2019 | Visit | | [address] | | | | | | [place] | | | | | | [address] | | | | | | | | +--------+ + + + + | 12/17/ | Appointment | Infusion Therapy | Yancy Clifford MD | | | 2020 | | | [address] | | | | | | [place] | | | | | | [address] | | | | | | | | +--------+ + + + + documented as of this encounter Visit Diagnoses + + | Diagnosis | + + | Personal history of tobacco use, presenting hazards to health - Primary | + + | Mild intermittent asthma, unspecified whether complicated | + + documented in this encounter"
--- OUTSIDE RECORDS SUMMARY | ~2019-11-22 | XMS | Encounter Summary ---
Demographics + + + | Address | [address] [address] | | | [place] [address] | + + + | Home Phone | | + + + | Preferred Language | Unknown | + + + | Marital Status | | + + + | Orthodoxy Affiliation | Unknown | + + + | Race | Unknown | + + + | Ethnic Group | Unknown | + + + Author + + + | Author | [facility] | | | and [place] | + + + | Organization | [facility] | | [...] | | | | [place] [address] | | + + + + + | Emory Larios | ECON | Unknown | | + + + + + Care Team Providers + +------+ + | Care Poly Operator Name | Role | Phone | + +------+ + | Shannan Deng | PCP | | + +------+ + Encounter Details +--------+ + + + + | Date | Type | Department | Care Team | Description | +--------+ + + + + | 11/05/ | Hospital | [facility] | Yancy Clifford MD | 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) | | | | SERVICES [address] | [place] | (Primary Dx) | | | | [address] [place] | [id number] | | | | | [address] [facility] [place] | | | | | | [address] | Sherrill Javed, | | | | | [phone] | RN | | +--------+ + + [...] | | | 2018 | | | [address] | | | | | | [place] | | | | | | [address] | | | | | | | | +--------+ + + + + | 11/26/ | Office | Oncology | Yancy Clifford MD | | | 2018 | Visit | | [address] | | | | | | [place] | | | | | | [address] | | | | | | | | | | | | Jennyfer Calvert | | | | | | CIERRA Lou [address] | | | | | | [address] | | | | | | [place] [address] | | | | | | [phone] | | | | | | | | +--------+ + + + + | 11/26/ | Appointment | Infusion Therapy | Yancy Clifford MD | | | 2018 | | | [address] | | | | | | [place] | | | | | | [address] | | | | | | | | +--------+ + + + + | 12/17/ | Appointment | Infusion Therapy | Yancy Clifford MD | | | 2019 | | | [address] | | | | | | [place] | | | | | | [address] | | | | | | | | +--------+ + + + + | 12/17/ | Office | Oncology | Yancy Clifford MD | | | 2019 | Visit | | [address] | | | | | | [place] | | | | | | [address] | | | | | | | | +--------+ + + + + | 12/17/ | Appointment | Infusion Therapy | Yancy Clifford MD | | | 2020 | | | [address] | | | | | | [place] | | | | | | [address] | | | | | | | [...] [place] | | | | | | [address] | | | | + + + + + + + + | Specimen | + + | | + + + + + + + | Performing | Address | City/State/Zipcode | Phone Number | | Organization | | | | + + + + + | REFERENCE LAB | [address] | [place] [address] | [phone] | | [facility] | vd. | | | | LABORATORY | | | | + + + + + | REFERENCE LAB | [address] | [place] [address] | | | [facility] | Blvd. | | | | LABORATORY [...] LAB | | | | performed at [facility];[address] | | [facility] | | | | [facility] | | LABORATORY | | | | Blvd;[place] [address] | | | | | | | | | | + + + + + + + + | Specimen | + + | | + + + + + + + | Performing | Address | City/State/Zipcode | Phone Number | | Organization | | | | + + + + + | REFERENCE LAB | [address] [place] [address] | [place] [address] | [phone] | | [facility] | Blvd. | | | | LABORATORY | | | | + + + + + | REFERENCE LAB | [address] [place] [address] | [place] [address] | | | [facility] | Blvd. | [...] | | | urine | performed at [facility];[address] | | [facility] | | | | [facility] | | LABORATORY | | | | Blvd;[place] [address] | | | | | | | | | | + + + + + + + + | Specimen | + + | | + + + + + + + | Performing | Address | City/State/Zipcode | Phone Number | | Organization | | | | + + + + + | REFERENCE LAB | [address] [place] [address] | [place] [address] | [phone] | | [facility] | Blvd. | | | | LABORATORY | | | | + + + + + | REFERENCE LAB | [address] [place] [address] | [place] [address] | | | [facility] | Blvd. | [...] - 1.030 | REFERENCE | | | [facility], | | | LAB | | | [...] | | LABORATORY | | | | [address] | | | | + + + + + + + + | Specimen | + + | | + + + + + + + | Performing | Address | City/State/Zipcode | Phone Number | | Organization | | | | + + + + + | REFERENCE LAB | [address] [place] [address] | [place] [address] | [phone] | | [facility] | Blvd. | | | | LABORATORY | | | | + + + + + | REFERENCE LAB | [address] [place] [address] | [place] [address] | | | [facility] | Blvd. | [...] | | | RATIO,URINE | performed at [facility];[address] | | LAB | | | | [place] | | [facility] | | | | Blvd;[place] [address] | | LABORATORY | | + + + + + + + + | Specimen | + + | | + + + + + + + | Performing | Address | City/State/Zipcode | Phone Number | | Organization | | | | + + + + + | REFERENCE LAB | [address] [place] [address] | [place] [address] | [phone] | | [facility] | Blvd. | | | | LABORATORY | | | | + + + + + | REFERENCE LAB | [address] [place] [address] | [place] [address] | | | [facility] | Blvd. | [...] | | LABORATORY | | | | [address] | | | | + + + + + + + + | Specimen | + + | Blood | + + + + + + + | Performing | Address | City/State/Zipcode | Phone Number | | Organization | | | | + + + + + | REFERENCE LAB | [address] | [place] [address] | [phone] | | [facility] | Blvd. | | | | LABORATORY | | | | + + + + + | REFERENCE LAB | [address] | [place] [address] | | | [facility] | Blvd. | [...] | | | | | performed at [facility];[address] | | | | | | [facility] | | | | | | Blvd;[place] [address] | | | | | | | | | | + + + + + + + + | Specimen | + + | Blood | + + + + + + + | Performing | Address | City/State/Zipcode | Phone Number | | Organization | | | | + + + + + | REFERENCE LAB | [address] | [place] [address] | [phone] | | [facility] | Blvd. | | | | LABORATORY | | | | + + + + + | REFERENCE LAB | [address] | [place] [address] | | | [facility] | Blvd. | [...] | | [facility], Starting [facility] 11/05/19 | | PM PST | | | | | at 1323 | | | | | | + +--------+ +--------+------+------+ +---+---+ | | | +---+---+ documented in this encounter"
--- OUTSIDE RECORDS SUMMARY | ~2019-11-22 | XMS | Encounter Summary ---
Demographics + + + | Address | [address] | | | [place] [address] | + + + | Home Phone | | + + + | Preferred Language | Unknown | + + + | Marital Status | | + + + | Scientology Affiliation | Unknown | + + + | Race | Unknown | + + + | Ethnic Group | Unknown | + + + Author + + + | Author | [facility] | | | and [place] | + + + | Organization | [facility] | | | and [...] | | | | [place] [address] | | + + + + + | Emory Larios | ECON | Unknown | | + + + + + Care Team Providers + +------+ + | Care Refrigerator Tester Name | Role | Phone | [...] Provider Unknown | | | | | [place], [place] | [phone] | | | | | [address] | | | | | | [phone] | | | +--------+ + + + [...] [place] | | | | | | [id number] | | | | | | | | +--------+ + + + + | 11/26/ | Office | Oncology | Yancy Clifford MD | | | 2018 | Visit | | [address] | | | | | | [place] | | | | | | [address] | | | | | | | | | | | | Jennyfer Calvert | | | | | | CIERRA Lou [address] | | | | | | [address] | | | | | | [place] [address] | | | | | | [phone] | | | | | | | | +--------+ + + + + | 11/26/ | Appointment | Infusion Therapy | Yancy Clifford MD | | | 2018 | | | [address] | | | | | | [place] | | | | | | [address] | | | | | | | | +--------+ + + + + | 12/17/ | Appointment | Infusion Therapy | Yancy Clifford MD | | | 2019 | | | [address] | | | | | | [place] | | | | | | [address] | | | | | | | | +--------+ + + + + | 12/17/ | Office | Oncology | Yancy Clifford MD | | | 2019 | Visit | | [address] | | | | | | [place] | | | | | | [address] | | | | | | | | +--------+ + + + + | 12/17/ | Appointment | Infusion Therapy | Yancy Clifford MD | | | 2019 | | | [address] | | | | | | [place] | | | | | | [address] | | | | | | | | +--------+ + + + + documented as of this encounter Visit Diagnoses Not on filedocumented in this encounter"
--- OUTSIDE RECORDS SUMMARY | ~2019-11-22 | XMS | Encounter Summary ---
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 | | | | [phone] | | (HCC); Pleural | | | [...] [place] | | | | | | [address] | | | | | | | | +--------+ + + + + | 11/26/ | Office | Oncology | Yancy Clifford MD | | | 2018 | Visit | | [address] | | | | | | [place] | | | | | | [address] | | | | | | | | | | | | Jennyfer Calvert | | | | | | CIERRA Lou [address] | | | | | | [address] | | | | | | [place] [address] | | | | | | [phone] | | | | | | | | +--------+ + + + + | 11/26/ | Appointment | Infusion Therapy | Yancy Clifford MD | | | 2018 | | | [address] | | | | | | [place] | | | | | | [address] | | | | | | | | +--------+ + + + + | 12/17/ | Appointment | Infusion Therapy | Yancy Clifford MD | | | 2019 | | | [address] | | | | | | [place] | | | | | | [address] | | | | | | | | +--------+ + + + + | 12/17/ | Office | Oncology | Yancy Clifford MD | | | 2019 | Visit | | [address] | | | | | | [place] | | | | | | [address] | | | | | | | | +--------+ + + + + | 12/17/ | Appointment | Infusion Therapy | Yancy Clifford MD | | | 2019 | | | [address] | | | | | | [place] | | | | | | [address] | | | | | | | [...] REFERENCE | | | | [facility] ([facility]) | | LAB | | | | [...] | | | | | | TCL;[address] [facility] | | | | | | [facility];[place] [address] | | | | | | | | | | + + + + + + + + | Specimen | + + | Blood | + + + + + + + | Performing | Address | City/State/Zipcode | Phone Number | | Organization | | | | + + + + + | REFERENCE LAB | [address] [place] [address] | [place] [address] | [phone] | | [facility] | Blvd. | | | | LABORATORY | | | | + + + + + | REFERENCE LAB | [address] [place] [address] | [place] [address] | | | [facility] | Blvd. | [...]
--- OUTSIDE RECORDS SUMMARY | ~2019-11-22 | XMS | Encounter Summary ---
Demographics + + + | Address | [address] | | | [place] [address] | + + + | Home Phone [...] | | | | [place] [address] | | + + + + + | Emory Larios | ECON | Unknown | | + + + + + Care Team Providers + +------+ + | Care Carpenter Maintenance Name | Role | Phone | + [...] | | Ascites, | [place], | [place] [address] | | | | | malignant | [place] [address] | Phone: | | | | | Procedures | Phone: | [phone] | | | | | [place] | [phone] | Fax: | | | | | BEVACIZUMAB | Fax: | [phone] | | | | | INJECTION, | [phone] | | | | | | 10 MG [id number] | | | | | | | - [place] | | | | | | | [...] + + | 11/05/ | Hospital | [facility] | Yancy Clifford MD | Malignant neoplasm | | 2019 | Encounter | HEMATOLOGY AND | [address] | of left ovary (HCC) | | | | ONCOLOGY INFUSIONS | [place] | (Primary Dx); | | | | [address] | [address] | Ascites, malignant | | | | [address]VE [place], [place] | | | | | | [address] | Jennyfer Carcamo, | | | | | [phone] | RN | | +--------+ + + [...] is given by a health home care aide in a h ospital or clinic setting. Talk to your consumer advocate regarding the use of this medicine in children. Special care may be needed. What side effects may I notice from receiving this medicine? Side effects that you should report to your doctor or health home care aide as soon as p ossible: allergic reactions [...] to your doctor or health home care aide if they continue or are bothersome): back pain changes in taste decreased appetite dry skin nausea tiredness What may interact with this medicine? Interactions are not expected. What if I miss a dose? It is important not to miss your dose. Call your doctor or health home care aide if you are unable to keep an [...] to your doctor or health home care aide if you are concerned about your fertility. [...] for any concerns or questions. [facility] with copy [facility] labs and calendar for next appointment: 26 of November 2:15 PM: IVT LAB DRAW with CATRACHITO BOO SS LAB DRAW in [facility] HO INFUSION SUPPORT SERVICES 3:00 PM: Office Visit Extended Appointment starts at 3:15 PM with CIERRA Hartley in [facility] HEMATOLOGY AND ONCOLOGY 4:00 PM: Onc Infusion with JAZZY CHAIR 14 in [facility] HEMATOLOGY AND ONCOLOGY INFUSIONS documented in [...] [place] | | | | | | [address] | | | | | | | | | | | | Jennyfer Calvert | | | | | | CIERRA Lou [address] | | | | | | [address] | | | | | | [place] [address] | | | | | | [phone] | | | | | | | | +--------+ + + + + | 11/26/ | Appointment | Infusion Therapy | Yancy Clifford MD | | | 2018 | | | [address] | | | | | | [place] | | | | | | [address] | | | | | | | | +--------+ + + + + | 12/17/ | Appointment | Infusion Therapy | Yancy Clifford MD | | | 2019 | | | [address] | | | | | | [place] | | | | | | [address] | | | | | | | | +--------+ + + + + | 12/17/ | Office | Oncology | Yancy Clifford MD | | | 2019 | Visit | | [address] | | | | | | [place] | | | | | | [address] | | | | | | | | +--------+ + + + + | 12/17/ | Appointment | Infusion Therapy | Yancy Clifford MD | | | 2019 | | | [address] | | | | | | [place] | | | | | | [address] | | | | | | | [...] | | | over 30 Minutes, ONCE, [facility] | | | | | | [...] | | | | | NS, Starting [facility] 11/05/19 at 1519 | | | | | | + +---------+ +---------+ +---+ +---+---+ | | | +---+---+ documented in this encounter"
--- OUTSIDE RECORDS SUMMARY | ~2019-11-22 | XMS | Encounter Summary ---
Demographics + + + | Address | [address] | | | [place] [address] | + + + | Home Phone | | + + + | Preferred Language | Unknown | + + + | Marital Status | | + + + | Judaism Affiliation | Unknown | + + + [...] | | | | | [place] [address] | | + + + + + | Emory Larios | ECON | Unknown | | + + + + + Care Team Providers + +------+ + | Care Classification Counselor Name | Role | Phone | + +------+ + PCP | Unavailable | + +------+ + Encounter Details +--------+ + + + + | Date | Type | Department | Care Team | Description | +--------+ + + + + | 05/13/ | Hospital | [facility] | Jared Piña, | | | 2019 - | Encounter | [facility] | MD [address] | | | | | CARE FLOOR [address] | [place] [address] | | | 05/16/ | | [address] | [phone] | | | 2018 | | [place], [place] | | | | | | [address] | | | | | | [phone] | | | +--------+ + + + [...] Service: Hospitalist Author Type: Physician Filed: 05/16/19 1513 Date of Service: 05/16/19822 Status: Signed Marketing Support Specialist: Kristine Toussaint DO (Physician) Patient: Ramila [...] asthma, DVT, dyslipidemia. She presented t [facility] ED on 05/13/19 with complaints of epistaxis. At that time her labs were nota ble for platelets 13, Hb 7.6, Hct 22.3. She was transferred to [facility] as there was no transfus ion services available at that time. Upon arrival to [facility] Oncology and ENT Dr. Hinds [...] Discharge Information: Follow up: Jonnathan Hinds MD [address] [id number] [facility] [id number] On 05/18/2019 For nasal packing removal Per Pt None Yancy Clifford MD [address] [facility] [address] Medication List START taking these medications amoxicillin-clavulanate [...] Date of Service: 05/16/19 141 Status: Signed Marketing Support Specialist: Burak Brooks RN (Registered Nurse) Education [...] Date of Service: 05/16/19 110 Status: Signed Marketing Support Specialist: Yancy Clifford MD (Physician) [facility] Service: Hematology and Oncology Progress Note [...] Jaida Shen RN Service: (none) Author Type: Retail Support Associate Filed: 05/15/19 1539 Date of Service: 05/15/19 153 Status: Signed Marketing Support Specialist: Jaida Shen RN (Retail Support Associate) CM attended daily medical team rounding. Pt is from home with spouse and will return home w hen medically stable. Kristine Burns DO - 05/15/2019 11:26 AM PDT Progress Notes by Kristine Toussaint DO at 05/15/19 1126 Author: Kristine Toussaint DO Service: Hospitalist Author Type: Physician Filed: 05/15/19 1134 Date of Service: 05/15/19 1126 Status: Signed Marketing Support Specialist: Kristine Toussaint DO (Physician) [facility] Service: Hospitalist Progress Note Hospital Day: LOS: 2 days Post-Op Day: * No surgery found * SUBJECTIVE Patient Summary: Patient is a 58 yo F with PMHx of metastatic ovarian CA (last chemotherap y treatment last week; under treatment by Dr. Venessa Correa), arthritis, asthma, DVT, dyslipidemi a. She presented to [place]'s ED on 05/13/19 with complaints of epistaxis. At that time her labs were notable for platelets 13, Hb 7.6, Hct 22.3. She was transferred to [facility] as the re was no transfusion services available at that time. Upon arrival to [facility] Oncology and ENT Dr. Hinds [...] on Saturday if no ENT available in [place]. Juliano l transition to Augmentin for prophylaxis. [...] Advanced R egistered Nurse Practitioner Filed: 05/15/19 1845 Date of Service: 05/15/19930 Status: Signed Marketing Support Specialist: CIERRA Joshi (Advanced Registered Nurse Practitioner) [facility] Service: Hematology and Oncology Progress Note Hospital Day: LOS: 2 days Patient Summary: Ms. Ramila Lopez is a 58 year old woman who presented to ER in [place] in April 2017 second yunior to dyspnea and abdominal distention. CT of the chest, abdomen and pelvis April 04, 2017 at [facility] revealed left pleural effusion with a left ovarian mass measuring 7. 6 X 5 X 5.8 cm with omental caking and ascites. CA 125 was nearly 2000. She underwent parac entesis with removal of 3600 cc fluid and thoracentesis with removal of 700cc, with patholog y from both consistent with malignancy of ovarian primary. She was referred to [facility] and established with Dr. Nolasco. Given her [...] established with Dr. Clifford after moving to [place]. In December 2018, the patient experienced rising [...] May 13, 2019, the patient presented to [place] ER secondary to epistaxis. The gaetano ent was seen in the ER by Dr. Diop. The patient was noted to be pancytopenic with platelet s 13,000, hemoglobin 7.6, and total white cell count 25,000. ER provider requested transfer to [facility] given the lack of platelets available in their facility. The patient received 2 un its of fresh frozen plasma prior to transfer and was admitted to [facility] for further manageme nt. SUBJECTIVE: Events [...] (none) Author Type: Registered Nurse Filed: 05/14/19 9303 Date of Service: 05/14/191708 Status: Signed Marketing Support Specialist: Senait Lehman RN (Registered Nurse) Transfused [...] 1422 Date of Service: 05/14/191420 Status: Signed Marketing Support Specialist: Alisha De La Torre RD (Registered Dietitian) 05/14/19 1400 Subjective Timepoint Admit Pt c/o Pt triggered for screen secondary to dysphagia. Admitted d/t pancytopenia, had intra ctable nose bleed. 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 Sadler d a BLT before transferring to [facility]. Fluid / Beverage Intake Oral [...] expressed frustratio n with restrictive diet. Recommend SCHOLARSHIP COUNSELOR evaluation to determine safest diet or liberalizing i f appropriate. Anthropometrics Weight change Admit wt: 87.5 kg. BMI of 33 considered obese. Pt reports wt has been stable , medical records confirm. Monitor wt trend. Biochemical data, medical tests, and procedures reviewed Biochemical data, medical tests, and procedures reviewed Labs reviewed. Estimated Energy Needs Total Energy Estimated Needs 5896-1846 kcal/day Method for Estimating Needs 25-30 kcal/kg per 62.78 AdjBW Estimated Protein Needs Total Protein Estimated Needs 75-94 g/day Method for Estimating Needs 1.2-1.5 g/kg Recommendations Recommended energy needs General diet with modified textures as needed. Recommend SCHOLARSHIP COUNSELOR evalu ation to determine safest PO intake, liberalize diet as possible to promote adequate intake. Monitor and follow per protocol. Nutritional Risk Nutritional risk Moderate Follow up date 05/19/19 Lynne John John, JORDY 05/14/2019 onver yuri Teixeira, Provider Unknown - 05/14/2019 11:51 AM PDT Case Management by Jaida Shen RN at 05/14/19 1151 Author: Jaida Shen RN Service: (none) Author Type: Retail Support Associate Filed: 05/14/19 1231 Date of Service: 05/14/19 1151 Status: Signed Marketing Support Specialist: Jaida Shen RN (Retail Support Associate) 05/14/19 1142 Discharge Planning Evaluation Admitting Diagnosis Pancytopenia Readmission No Living Arrangements Spouse/significant other Support Systems Spouse/significant other;Children;Family members Type of Residence Private residence House type House-1 story Independent with ADL's Yes Independent with Mobility Yes Home Care Services No Caregiver after Discharge Yes Caregiver Name Jared Lopez Relationship to Patient spouse Phone number [phone] Mental Status Oriented Prior functional status independent [...] cancer. Pt lives with her spouse in [place], [place] and has been independent with adls [...] Star Cedeño MD at 05/14/19 1130 Author: Stra Cedeño MD Service: Hospitalist Author Type: Physician Filed: 05/14/19 1146 Date of Service: 05/14/191129 Status: Signed Marketing Support Specialist: Star Cedeño MD (Physician) [facility] Service: Hospitalist Progress Note Hospital Day: [...] 05/14/19619 Date of Service: 05/14/19616 Status: Signed Marketing Support Specialist: Anitha Simons RN (Registered Nurse) End [...] 05/13/191826 Date of Service: 05/13/191826 Status: Signed Marketing Support Specialist: Jessica Garza RPH (Pharmacist) Clinical Pharmacy Note: Renal Monitoring Ramila Loepz 58 y.o. female Ht Readings from Last [...] d adjust accordingly. Jessica Garza Pharm D, [facility] 05/13/2019 6:26 PM onver yuri Transaction, Provider Unknown - 05/13/2019 6:00 PM PDT Progress Notes by Jessica Garza RPH at 05/13/19 1800 Author: Jessica Garza RPH Service: Pharmacy Author Type: Pharmacist Filed: 05/13/191799 Date of Service: 05/13/19 1800 Status: Signed Marketing Support Specialist: Jessica Garza RPH (Pharmacist) Clinical Pharmacy [...] per renal function. Jessica Garza [facility] 5:59 PM 05/13/2019 Pharmacist onver yuri Teixeira, Provider Unknown - 05/13/2019 4:53 PM PDT Nurse Progress Note by Jillian Cruz RN at 05/13/191652 Author: Jillian Cruz RN Service: (none) Author Type: Registered Nurse Filed: 05/13/191815 Date of Service: 05/13/191652 Status: Addendum Marketing Support Specialist: Jillian Cruz RN (Registered Nurse) Related Notes: Original Note by Jillian Cruz RN (Registered Nurse) filed at 05/13/19 16 55 End of Shift Note: Pt admitted to floor resting comfortably in bed. [place] in place, but pt reports that nose is still oozing down throat. 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 Pt states [...] [place] | | | | | | [address] | | | | | | | | +--------+ + + + + | 11/26/ | Office | Oncology | Yancy Clifford MD | | | 2018 | Visit | | [address] | | | | | | [place] | | | | | | [address] | | | | | | | | | | | | Jennyfer Calvert | | | | | | [place] [facility] [address] | | | | [address] | | | | | | [place] [address] | | | | | | [phone] | | | | | | | [...] [place] | | | | | | [address] | | | | | | | | +--------+ + + + + | 12/17/ | Office | Oncology | Yancy Clifford MD | | | 2019 | Visit | | [address] | | | | | | [place] | | | | | | [address] | | | | | | | | +--------+ + + + + | 12/17/ | Appointment | Infusion Therapy | Yancy Clifford MD | | | 2019 | | | [address] | | | | | | [place] | | | | | | [address] | | | | | | | [...] | | | | | | at [facility], [address] | | | | | | [facility], | | | | | | [place] [address] | | | | | |Testing performed at [facility], [address] [place] [address] | | | | | | | [...] | | | | | performed at [facility], [address] | | | | | | [facility], | | | | | | [place] [address] | | | | + + + [...] LAB | | | | performed at [facility], [address] | | | | | | [address], | | | | | | [place] [address] | | | | | | | [...] | | | | | performed at [facility];[address] | | | | | | [address] [facility];[place], [place] | | | | | | [address] | | | | + + + [...] [place] | | | | | | [address] | | | | + + + [...] | | | | | | [place] [address] | | | | + + + [...] EXTERNAL | | | | performed at [facility], [address] | | LAB | | | | [address], | | | | | | [place] [address] | | | | + + + [...] | | | | | performed at [facility], [address] | | | | | | [address], | | | | | | [place] [address] | | | | + + + [...] - 1.030 | EXTERNAL | | | [place] | | | LAB | | + [...] EXTERNAL | | | | performed at [facility];[address] | | LAB | | | | [address];[place], [place] | | | | | | [address] | | | | + + + [...] + + | Historically [facility] | EXTERNAL LAB | + + [...] | | | Patient | performed at [facility];[address] | | LAB | | | | [address];[place], [place] | | | | | | [address] | | | | + + + [...] | | | | | performed at [facility];[address] | | | | | | [address] [facility];[place], [place] | | | | | | [address] | | | | + + + [...] | | | Plasma | P [phone] [facility] | | | | | |KEISHA Stephenson RN 6R [phone] [facility] | | | | | | | [...] | | | | | performed at [facility] | | | | | | [facility];[place], [place] | | | | | | [address] | | | | | |Testing performed at [facility];[address] [place] [address];[place] [address] | | | | | | | [...] EXTERNAL | | | | performed at [facility];[address] | | LAB | | | | [address];[place], [place] | | | | | | [address] | | | | + + + [...] EXTERNAL | | | | performed at [facility] | | LAB | | | | [address];[place] | | | | | | [address] | | | | + + + [...] | | | | | performed at [facility];[address] | | | | | | [facility], [place] | | | | | | [address] | | | | + + + [...]
--- OUTSIDE RECORDS SUMMARY | ~2019-11-22 | XMS | Encounter Summary ---
Demographics + + + | Address | [address] | | | [place] [address] | + + + | Home Phone [...] | | | | [place] [address] | | + + + + + | Emory Larios | ECON | Unknown | | + + + + + Care Team Providers + +------+ + | Care Shirt Line Operator Name | Role | Phone | [...] | | | Ascites, | [place], | [place] [address] | | | | | malignant | [place] [address] | Phone: | | | | | Procedures | Phone: | [phone] | | | | | [place] | [phone] | Fax: | | | | | [place] | Fax: | [phone] | | | | | INJECTION, | [phone] | | | | | | 10 MG [id number] | | | | | | | - [place] | | | | | | | [...] + + | 10/15/ | Hospital | [facility] | Yancy Clifford MD | Malignant neoplasm | | 2019 | Encounter | HEMATOLOGY AND | [address] | of left ovary (HCC) | | | | ONCOLOGY INFUSIONS | [place] | (Primary Dx); | | | | [address] | [address] | Ascites, malignant | | | | AVE [place], [place] | | | | | | [address] | Ekta Kamara RN | | | | | [phone] | | | +--------+ + + + [...] prevent mouth sores: Keep your mouth clean. [place] your teeth with a soft-bristle toothbrush after [...] baking soda to clean your mouth. M sq3eityrcmrpf salt [id number] of baking soda in 1 quart of [...] begins to ooze Burning when you urinate Rhoojcl992.4F (38C) ordwain awadas directed by your healthcare provider Date Last Reviewed: 04/01/201619995715-5418 [employer]. [address] [place] [address], [place] [address]. All righ ts reserved. This information is [...] BOO SS LAB DRAW in [facility] HO INFUSION SUPPORT SERVICES 2:15 PM: Office Visit Extended Appointment starts at 2:30 PM with Yancy Clifford MD in [facility] HEMATOLOGY AND ONCOLOGY 3:00 PM: Onc Infusion with JAZZY CHAIR 14 in [facility] HEMATOLOGY AND ONCOLOGY INFUSIONS Annabella Sanchez RN [...] [place] | | | | | | [address] | | | | | | | | +--------+ + + + + | 11/26/ | Office | Oncology | Yancy Clifford MD | | | 2018 | Visit | | [address] | | | | | | [place] | | | | | | [id number] | | | | | | | | | | | | Jennyfer Calvert | | | | | | Carmine [facility] [address] | | | | | | [address] | | | | | | [place] [address] | | | | | | [phone] | | | | | | | | +--------+ + + + + | 11/26/ | Appointment | Infusion Therapy | Yancy Clifford MD | | | 2019 | | | [address] | | | | | | [place] | | | | | | [address] | | | | | | | | +--------+ + + + + | 12/17/ | Appointment | Infusion Therapy | Yancy Clifford MD | | | 2019 | | | [address] | | | | | | [place] | | | | | | [address] | | | | | | | | +--------+ + + + + | 12/17/ | Office | Oncology | Yancy Clifford MD | | | 2019 | Visit | | [address] | | | | | | [place] | | | | | | [address] | | | | | | | | +--------+ + + + + | 12/17/ | Appointment | Infusion Therapy | Yancy Clifford MD | | | 2020 | | | [address] | | | | | | [place] | | | | | | [address] | | | | | | | [...] | | | | | Intracatheter, ONCE, [facility] 10/15/19 | | AM PST | | [...]
--- OUTSIDE RECORDS SUMMARY | ~2019-11-22 | XMS | Encounter Summary ---
Demographics + + + | Address | [address] | | | [place] [address] | + + + | Home Phone [...] | Author | [facility] | | | and [place] | + + + | Organization | [facility] | | | and [...] | | | | [place] [address] | | + + + + + | Emory Larios | ECON | Unknown | | + + + + + Care Team Providers + +------+ + | Care Tax Manager Cpa Name | Role | Phone | + [...] | | Ascites, | [place], | [place] [address] | | | | | malignant | [place] [address] | Phone: | | | | | Procedures | Phone: | [phone] | | | | | [place] | [phone] | Fax: | | | | | [place] | Fax: | [phone] | | | | | INJECTION, | [phone] | | | | | | 10 [...] + + | 10/15/ | Hospital | [facility] | Yancy Clifford MD | Malignant neoplasm | | 2019 | Encounter | HEMATOLOGY AND | [address] | of left ovary (HCC) | | | | ONCOLOGY INFUSIONS | [place] | (Primary Dx); | | | | [address] | [address] | Ascites, malignant | | | | AVE [place], [place] | | | | | | [address] | Ekta Kamara RN | | | | | [phone] | | | +--------+ + + + [...] prevent mouth sores: Keep your mouth clean. [place] your teeth with a soft-bristle toothbrush after [...] baking soda to clean your mouth. M bb9xsmxmepstq salt nqe3apmfvsiu of baking soda in 1 quart of [...] begins to ooze Burning when you urinate Giltekb413.4F (38C) ordwain awadas directed by your healthcare provider Date Last Reviewed: 04/01/201619992987-5099 [employer]. [address] [place] [address], [place] [address]. All righ ts reserved. This information is [...] with [place]O BOO SS LAB DRAW in [facility] HO INFUSION SUPPORT SERVICES 2:15 PM: Office Visit Extended Appointment starts at 2:30 PM with Yancy Clifford MD in [facility] HEMATOLOGY AND ONCOLOGY 3:00 PM: Onc Infusion with JAZZY CHAIR 14 in [facility] HEMATOLOGY AND ONCOLOGY INFUSIONS Annabella Sanchez [...] [place] | | | | | | [address] | | | | | | | | +--------+ + + + + | 11/26/ | Office | Oncology | Yancy Clifford MD | | | 2018 | Visit | | [address] | | | | | | [place] | | | | | | [id number] | | | | | | | | | | | | Jennyfer Calvert | | | | | | Carmine [employer] [address] | | | | | | [address] | | | | | | [place] [address] | | | | | | [phone] | | | | | | | | +--------+ + + + + | 11/26/ | Appointment | Infusion Therapy | Yancy Clifford MD | | | 2019 | | | [address] | | | | | | [place] | | | | | | [address] | | | | | | | | +--------+ + + + + | 12/17/ | Appointment | Infusion Therapy | Yancy Clifford MD | | | 2019 | | | [address] | | | | | | [place] | | | | | | [address] | | | | | | | | +--------+ + + + + | 12/17/ | Office | Oncology | Yancy Clifford MD | | | 2019 | Visit | | [address] | | | | | | [place] | | | | | | [address] | | | | | | | | +--------+ + + + + | 12/17/ | Appointment | Infusion Therapy | Yancy Clifford MD | | | 2020 | | | [address] | | | | | | [place] | | | | | | [address] | | | | | | | [...] | | | | | Intracatheter, ONCE, [facility] 10/15/19 | | AM PST | | [...]
--- OUTSIDE RECORDS SUMMARY | ~2019-11-22 | XMS | Encounter Summary ---
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 | | | | [phone] | | (HCC); Pleural | | | [...] [place] | | | | | | [address] | | | | | | | | +--------+ + + + + | 11/26/ | Office | Oncology | Yancy Clifford MD | | | 2018 | Visit | | [address] | | | | | | [place] | | | | | | [address] | | | | | | | | | | | | Jennyfer Calvert | | | | | | Carmine OTHER SPORTS COACH OR INSTRUCTOR [address] | | | | | | [address] | | | | | | [place] [address] | | | | | | [phone] | | | | | | | | +--------+ + + + + | 11/26/ | Appointment | Infusion Therapy | Yancy Clifford MD | | | 2018 | | | [address] | | | | | | [place] | | | | | | [address] | | | | | | | | +--------+ + + + + | 12/17/ | Appointment | Infusion Therapy | Yancy Clifford MD | | | 2019 | | | [address] | | | | | | [place] | | | | | | [address] | | | | | | | | +--------+ + + + + | 12/17/ | Office | Oncology | Yancy Clifford MD | | | 2019 | Visit | | [address] | | | | | | [place] | | | | | | [address] | | | | | | | | +--------+ + + + + | 12/17/ | Appointment | Infusion Therapy | Yancy Clifford MD | | | 2019 | | | [address] | | | | | | [place] | | | | | | [address] | | | | | | | [...] LAB | | | | Performed at [facility], [address] | | [facility] | | | | [address] | | LABORATORY | | | | [address], [place] | | | | | | [address] | | | | + + + + + + + + | Specimen | + + | | + + + + + + + | Performing | Address | City/State/Zipcode | Phone Number | | Organization | | | | + + + + + | REFERENCE LAB | [address] [place] [address] | [place] [address] | [phone] | | [facility] | Blvd. | | | | LABORATORY | | | | + + + + + | REFERENCE LAB | [address] [place] [address] | [place] [address] | | | [facility] | Blvd. | [...] | | [facility] | | | | [facility] | | LABORATORY | | | | Blvd;[place] [address] | | | | | | | | | | + + + + + + + + | Specimen | + + | | + + + + + + + | Performing | Address | City/State/Zipcode | Phone Number | | Organization | | | | + + + + + | REFERENCE LAB | [address] [facility] | [place] [address] | [phone] | | [facility] | Blvd. | | | | LABORATORY | | | | + + + + + | REFERENCE LAB | [address] [place] [address] | [place] [address] | | | [facility] | Blvd. | | | | LABORATORY [...] [facility];[address] | | [facility] | | | | [facility] | | LABORATORY | | | | Blvd;[place] [address] | | | | | | | | | | + + + + + + + + | Specimen | + + | | + + + + + + + | Performing | Address | City/State/Zipcode | Phone Number | | Organization | | | | + + + + + | REFERENCE LAB | [address] [place] [address] | [place] [address] | [phone] | | [facility] | Blvd. | | | | LABORATORY | | | | + + + + + | REFERENCE LAB | [address] [facility] | [place] [address] | | | [facility] | Blvd. | [...] | | [facility] | | | | Blvd;[place] [address] | | LABORATORY | | + + + + + + + + | Specimen | + + | | + + + + + + + | Performing | Address | City/State/Zipcode | Phone Number | | Organization | | | | + + + + + | REFERENCE LAB | [address] [place] [address] | [place] [address] | [phone] | | [facility] | Blvd. | | | | LABORATORY | | | | + + + + + | REFERENCE LAB | [address] [place] [address] | [place] [address] | | | [facility] | Blvd. | [...] | | LABORATORY | | | | [address] | | | | + + + + + + + + | Specimen | + + | Blood | + + + + + + + | Performing | Address | City/State/Zipcode | Phone Number | | Organization | | | | + + + + + | REFERENCE LAB | [address] [place] [address] | [place] [address] | [phone] | | [facility] | Blvd. | | | | LABORATORY | | | | + + + + + | REFERENCE LAB | [address] [place] [address] | [place] [address] | | | [facility] | Blvd. | [...] [facility] | | | | Blvd;[place] [address] | | LABORATORY | | + + + + + + | K | 4.3Comment: Testing | 3.5 - 4.9 | REFERENCE | | | | performed at [facility];[address] | mmol/L | LAB | | | | [place] | | [facility] | | | | Blvd;[place] [address] | | LABORATORY | | + + + + + + | Cl | 105Comment: Testing | 99 - 109 mmol/L | REFERENCE | | | | performed at [facility];[address] | | LAB | | | | [place] | | [facility] | | | | Blvd;[place] [address] | | LABORATORY | | + + + + + + | CO2 | 26Comment: Testing | 23 - 32 mmol/L | REFERENCE | | | | Performed at [facility], [address] | | LAB | | | | [address] | | [facility] | | | | [address], [place] | | LABORATORY | | | | [address] | | | | + + + + + + | Anion Gap | 11Comment: Testing | 5 - 20 mmol/L | REFERENCE | | | | performed at [facility];[address] | | LAB | | | | ridge | | [facility] | | | | Blvd;[place] [address] | | LABORATORY | | + + [...] | | | | | Performed at [facility], [address] | | | | | | [address] | | | | | | [address], [place], [place] | | | | | | [address] | | | | + + + + + + + + | Specimen | + + | Blood | + + + + + + + | Performing | Address | City/State/Zipcode | Phone Number | | Organization | | | | + + + + + | REFERENCE LAB | [address] [place] [address] | [place] [address] | [phone] | | [facility] | Blvd. | | | | LABORATORY | | | | + + + + + | REFERENCE LAB | [address] [place] [address] | [place] [address] | | | [facility] | Blvd. | [...] - 1.030 | REFERENCE | | | [place], | | | LAB | | | [...] [facility] | | | | [address], [place] | | LABORATORY | | | | [address] | | | | + + + + + + + + | Specimen | + + | Urine | + + + + + + + | Performing | Address | City/State/Zipcode | Phone Number | | Organization | | | | + + + + + | REFERENCE LAB | [address] [facility] | [place] [address] | [phone] | | [facility] | Blvd. | | | | LABORATORY | | | | + + + + + | REFERENCE LAB | [address] [facility] | [place] [address] | | | [facility] | Blvd. | [...] [address] | | | | | | Blvd;[place] [address] | | | | | | | [...] [facility] | [place] [address] | [phone] | | [facility] | Blvd. | | | | LABORATORY | | | | + + + + + | REFERENCE LAB | [address] | [place] [address] | | | [facility] | Blvd. | [...]
--- OUTSIDE RECORDS SUMMARY | ~2019-11-22 | XMS | Encounter Summary ---
Demographics + + + | Address | [address] | | | [place] [address] | + + + | Home Phone [...] | | | | [place] [address] | | + + + + + | Emory Larios | ECON | Unknown | | + + + + + Care Team Providers + +------+ + | Care Hydraulic Auto Jack Mechanic Name | Role | Phone | + +------+ + | Shannan Deng | PCP | | + +------+ + Encounter Details +--------+ + + + + | Date | Type | Department | Care Team | Description | +--------+ + + + + | 07/23/ | Hospital | [facility] | Yancy Clifford MD | 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) | | | | SERVICES [address] | [place] | | | | | [address] [place] | [id number] | | | | | [address] [place] | | | | | | [address] | Donya Mckeon, | | | | | [phone] | RN | | +--------+ + + [...] | | | 2018 | | | [address] | | | | | | [place] | | | | | | [phone] | | | | | | | | +--------+ + + + + | 11/26/ | Office | Oncology | Yancy Clifford MD | | 2018 | Visit | | [address] | | | | | | [place] | | | | | | [address] | | | | | | | | | | | | Jennyfer Calvert | | | | | | Carmine PRIMARY TEACHING ASSISTANT [address] | | | | | [address] | | | | | | [place] [address] | | | | | | [phone] | | | | | | | | +--------+ + + + + | 11/26/ | Appointment | Infusion Therapy | Yancy Clifford MD | | | 2019 | | | [address] | | | | | | [place] | | | | | | [address] | | | | | | | | +--------+ + + + + | 12/17/ | Appointment | Infusion Therapy | Yancy Clifford MD | | | 2020 | | | [address] | | | | | | [place] | | | | | | [address] | | | | | | | | +--------+ + + + + | 12/17/ | Office | Oncology | Yancy Clifford MD | | | 2019 | Visit | | [address] | | | | | | [place] | | | | | | [address] | | | | | | | | +--------+ + + + + | 12/17/ | Appointment | Infusion Therapy | Yancy Clifford MD | | | 2020 | | | [address] | | | | | | [place] | | | | | | [address] | | | | | | | | +--------+ + + + + documented as of this encounter Visit Diagnoses + + | Diagnosis | + + | Malignant neoplasm of left ovary (HCC) Malignant neoplasm of ovary | + + documented in this encounter"
--- OUTSIDE RECORDS SUMMARY | ~2019-11-22 | XMS | Encounter Summary ---
Demographics + + + | Address | [address] | | | [place] [address] | + + + | Home Phone [...] | | | | [place] [address] | | + + + + + | Emory Larios | ECON | Unknown | | + + + + + Care Team Providers + +------+ + | Care Chief Information Officer Name | Role | Phone | [...] | | ECHO | [address] | [place], [place] | | | | | Complete | [place] | [address] | | | | | | [address] | Phone: | | | | | | Phone: | [phone] | | | | | | [phone] | Fax: | | | | | | Fax: | [phone] | | | | | | [phone] | | +--------+--------+ + + + + Encounter Details +--------+ + + + + | Date | Type | Department | Care Team | Description | +--------+ + + + + | 08/04/ | Orders Only | [facility] | Scott Boswell MD | Pulmonary HTN (HCC) | | 2019 | | PULMONOLOGY [address] | [address] | (Primary Dx) | | | | [address] | [place], [place] | | | | | [place], [place] | [address] | | | | | [address] | | | | | | [phone] | | | +--------+ + + + [...] | | | | | [place] [address] | | | | | | [phone] | | | | | | | | +--------+ + + + + | 11/26/ | Appointment | Infusion Therapy | Yancy Clifford MD | | | 2018 | | | [address] | | | | | | [place] | | | | | | [address] | | | | | | | | +--------+ + + + + | 12/17/ | Appointment | Infusion Therapy | Yancy Clifford MD | | | 2019 | | | [address] | | | | | | [place] | | | | | | [address] | | | | | | | | +--------+ + + + + | 12/17/ | Office | Oncology | Yancy Clifford MD | | | 2019 | Visit | | [address] | | | | | | [place] | | | | | | [address] | | | | | | | | +--------+ + + + + | 12/17/ | Appointment | Infusion Therapy | Yancy Clifford MD | | | 2019 | | | [address] | | | | | | [place] | | | | | | [address] | | | | | | | | +--------+ + + + + + + +--------+ + + | Name | Type | Priori | Associated Diagnoses | Order Schedule | | | | ty | | | + + +--------+ + + | ECHO Complete | Echocardiog | Routin | Pulmonary HTN | Expected: | | | pipo | e | ([facility]) | 08/04/2019, Expires: | | | | | | 08/04/2020 | + + +--------+ + + documented as of this encounter Visit Diagnoses + + | Diagnosis | + + | Pulmonary HTN (HCC) - Primary Other chronic pulmonary heart diseases | + + documented in this encounter"
--- OUTSIDE RECORDS SUMMARY | ~2019-11-22 | XMS | Encounter Summary ---
Demographics + + + | Address | [address] | | | [place] [address] | + + + | Home Phone | | + + + | Preferred Language | Unknown | + + + | Marital Status | | + + + | Hindu Affiliation | Unknown | + + + [...] | | | | | [place] [address] | | + + + + + | Emory Larios | ECON | Unknown | | + + + + + Care Team Providers + +------+ + | Care Color Television Console Monitor Name | Role | Phone | + +------+ + PCP | Unavailable | + +------+ + Encounter Details +--------+ + + + + | Date | Type | Department | Care Team | Description | +--------+ + + + + | 07/09/ | Abstract | [facility] | Patricia Sanchez, | | | 2018 | | HEMATOLOGY AND | Hair Preparer | | | | | ONCOLOGY [address] | | | | | [address] | | | | | | [place] | | | | | | [address] | | | | | | [phone] | | | +--------+ + + + [...] [place] | | | | | | [address] | | | | | | | | +--------+ + + + + | 11/26/ | Office | Oncology | Yancy Clifford MD | | | 2018 | Visit | | [address] | | | | | | [place] | | | | | | [address] | | | | | | | | | | | | Jennyfer Calvert | | | | | | CIERRA Lou [address] | | | | | | [address] | | | | | | [place] [address] | | | | | | [phone] | | | | | | | [...] [place] | | | | | | [address] | | | | | | | | +--------+ + + + + | 12/17/ | Office | Oncology | Yancy Clifford MD | | | 2019 | Visit | | [address] | | | | | | [place] | | | | | | [address] | | | | | | | | +--------+ + + + + | 12/17/ | Appointment | Infusion Therapy | Yancy Clifford MD | | | 2019 | | | [address] | | | | | | [place] | | | | | | [address] | | | | | | | | +--------+ + + + + documented as of this encounter Visit Diagnoses Not on filedocumented in this encounter"
--- OUTSIDE RECORDS SUMMARY | ~2019-11-22 | XMS | Encounter Summary ---
Demographics + + + | Address | [address] [facility] [address] | | | [place] [address] | + + + | Home Phone [...] + + + | Author | [facility] | | | and [place] | + + + | Organization | [facility] | | | [...] | | | | [place] [address] | | + + + + + | Emory Larios | ECON | Unknown | | + + + + + Care Team Providers + +------+ + | Care Leather Polisher Name | Role | Phone | [...] + + | 11/05/ | Telephone | [facility] | Yancy Clifford MD | LABS (add on) | | 2019 | | HEMATOLOGY AND | [address] | | | | | ONCOLOGY [address] | [place] | | | | | [address] | [address] | | | | | [place] | | | | | | [address] | | | | | | [phone] | | | +--------+ + + + [...] | Appointment | Infusion Therapy | Yancy Cliffodr MD | | | 2018 | | | [address] | | | | | | [place] | | | | | | [address] | | | | | | | | +--------+ + + + + | 11/26/ | Office | Oncology | Yancy Clifford MD | | | 2018 | Visit | | [address] | | | | | | [place] | | | | | | [address] | | | | | | | | | | | | Jennyfer Calvert | | | | | | Carmine, SPORTS INSTRUCTOR [address] | | | | | [address] | | | | | | [place] [address] | | | | | | [phone] | | | | | | | | +--------+ + + + + | 11/26/ | Appointment | Infusion Therapy | Yancy Clifford MD | | | 2018 | | | [address] | | | | | | [place] | | | | | | [address] | | | | | | | | +--------+ + + + + | 12/17/ | Appointment | Infusion Therapy | Yancy Clifford MD | | | 2019 | | | [address] | | | | | | [place] | | | | | | [address] | | | | | | | | +--------+ + + + + | 12/17/ | Office | Oncology | Yancy Clifford MD | | | 2019 | Visit | | [address] | | | | | | [place] | | | | | | [address] | | | | | | | | +--------+ + + + + | 12/17/ | Appointment | Infusion Therapy | Yancy Clifford MD | | | 2019 | | | [address] | | | | | | [place] | | | | | | [address] | | | | | | | | +--------+ + + + + documented as of this encounter Visit Diagnoses Not on filedocumented in this encounter"
--- OUTSIDE RECORDS SUMMARY | ~2019-11-22 | XMS | Clinical Summary ---
Demographics + + + | Address | [address] [address] [address] | | | [place] [address] | + + + | Home Phone | | + + + | Preferred Language | Unknown | + + + | Marital Status | Legally | + + + | Tenriism Affiliation | Unknown | + + + | Race | Unknown | + + + | Ethnic Group | Unknown | + + + Author + + + | Author | [email or web address] (Historical as of | | | 07-18-19) | + + + | Organization | [email or web address] (Historical as of | | | 07-18-19) [...] | | | | [place] [address] | | + + + + + | Emory Larios | EBENEZER | Unknown | | + + + + + Care Team Providers + +------+ + | Care Unit Manager [employer] Name | Role | Phone | + [...] +------+-------+ + | MEDICARE | MEDICA | [id number] | | | [address] | | | RE | | | | [place] [address] | | | IP-OP | | | | | + +--------+ +------+-------+ + | MEDICAID | MEDICA | [id number] | | | [address] | | | ID | | | | [place] | | | [place] | | | | [address] | + +--------+ +------+-------+ + + +--------+ +--------+ + + | Guarantor Name | Accoun | Relation to | Date | Phone | Billing Address | | | t Type | Patient | of | | | | | | | | | | + +--------+ +--------+ + + | ELSY BAXTER | Person | Self [birth year] Home: | [address] | | | al/Fam | | 1959 | [phone] [address] [place], | | | ever | | | [address] | [place] [address] | + +--------+ +--------+ + +
--- OUTSIDE RECORDS SUMMARY | ~2019-11-22 | XMS | Encounter Summary ---
Demographics + + + | Address | [address] [address] [facility] [address] | | | [place] [address] | + + + | Home Phone [...] | | | | [place] [address] | | + + + + + | Emory Larios | ECON | Unknown | | + + + + + Care Team Providers + +------+ + | Care Copper Tapper Name | Role | Phone | [...] + + | 08/19/ | Telephone | [facility] | Yuli Serna | Triage | | 2019 | | SUPPORT SERVICES | Brittany, FILTER SCREEN CLEANER [address] | | | | | [address] | [address] | | | | | [place] [address] | [place] [address] | | | | | [place], [place] | [phone] | | | | | [address] | | | | | | [phone] | | | +--------+ + + + [...] [place] | | | | | | [address] | | | | | | | | +--------+ + + + + | 11/26/ | Office | Oncology | Yancy Clifford MD | | | 2018 | Visit | | [address] | | | | | | [place] | | | | | | [address] | | | | | | | | | | | | Jennyfer Calvert | | | | | | Carmine, ELECTRICAL LOGGING ENGINEER [address] | | | | | [address] | | | | | | [place] [address] | | | | | | [phone] | | | | | | | | +--------+ + + + + | 11/26/ | Appointment | Infusion Therapy | Yancy Clifford MD | | | 2018 | | | [address] | | | | | | [place] | | | | | | [address] | | | | | | | | +--------+ + + + + | 12/17/ | Appointment | Infusion Therapy | Yancy Clifford MD | | | 2019 | | | [address] | | | | | | [place] | | | | | | [address] | | | | | | | | +--------+ + + + + | 12/17/ | Office | Oncology | Yancy Clifford MD | | | 2019 | Visit | | [address] | | | | | | [place] | | | | | | [address] | | | | | | | | +--------+ + + + + | 12/17/ | Appointment | Infusion Therapy | Yancy Clifford MD | | | 2019 | | | [address] | | | | | | [place] | | | | | | [address] | | | | | | | | +--------+ + + + + documented as of this encounter Visit Diagnoses Not on filedocumented in this encounter"
--- OUTSIDE RECORDS SUMMARY | ~2019-11-22 | XMS | Encounter Summary ---
Demographics + + + | Address | [address] | | | [place] [address] | + + + | Home Phone | | + + + | Preferred Language | Unknown | + + + | Marital Status | | + + + | Adventist Affiliation | Unknown | + + + | Race | Unknown | + + + | Ethnic Group | Unknown | + + + Author + + + | Author | [facility] | | | and [place] | + + + | Organization | [facility] | | | and [...] | | | | [place] [address] | | + + + + + | Emory Larios | ECON | Unknown | | + + + + + Care Team Providers + +------+ + | Care Steam Fitter Helper Name | Role | Phone | [...] + + | 08/13/ | Office | [facility] | Yancy Clifford MD | Malignant neoplasm | | 2019 | Visit | HEMATOLOGY AND | [address] | of left ovary (HCC) | | | | ONCOLOGY [address] | [place] | (Primary Dx) | | | | [address] | [address] | | | | | [place] | | | | | | [address] | Jennyfer Calvert | | | | | [phone] | CIERRA Luo [address] | | | | | [address] | | | | | | [place] [address] | | | | | | [phone] | | | | | | | [...] in this encounter Progress Notes Jennyfer Calvert, CIGARETTE TIPPER - 08/13/2019 9:45 AM PDTFormatting of this note might be differ ent from the original. [facility] Hematology & Oncology Oncology Progress [...] 05/2017 Genetic Testing Negative genetic testing through [facility]. 07/2017 Surgery S/p debulking surgery. 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 Omentum involved by metastatic cancer. 07/2017 - 09/2017 Chemotherapy Received 3 cycles of dose dense carboplatin/ paclitaxel. 09/2017 Remission In remission by scan. CA125 normalized. 12/2018 - Recurrence Rising CA125. CT CAP with contrast showed abdominal / pelvic NAAI and retroperitoneal meta static deposits and masses [...] ANISO NORMAL PLT MORPH Testing Performed at [facility], [address] [facility], [address], [place] [address] Na 08/13/2019 139 135 - 145 mmol/L [...] MDRD IDMS traceable equation. Testing Performed at [facility], [address], [address], [place] [address] PRO/CREA RATIO,URINE 08/13/2019 0.293 Final Testing performed at [facility];[address] [facility];[place] [address] Color, UA 08/13/2019 YELLOW Final Clarity, UA 08/13/2019 CLEAR Final Specific [place], Urine 08/13/2019 1.025 1.002 - 1.030 Final [...] NEGATIVE NEG mg/dL Final Testing Performed at [facility], [address], [address], [place] [address] Creatinine, random urine 08/13/2019 167.0 mg/dL Final Comment: NO NORMAL RANGE ESTABLISHED Testing performed at [facility];[address] [facility];[place] [address] Protein, Urine 08/13/2019 49 mg/dL Final Comment: NO NORMAL RANGE ESTABLISHED Testing performed at [facility];[address] [facility];[place] [address] WBC UA 08/13/2019 0-2 0 - 5 /hpf Final RBC UA 08/13/2019 0-2 0 - 5 /hpf Final SQUAMOUS EPITHELIAL UA 08/13/2019 16-25 /lpf Final BACTERIA UA 08/13/2019 TRACE* NONE Final MUCUS UA 08/13/2019 4+ Final CASTS 08/13/2019 1-5 /lpf Final Comment: HYALINE Testing Performed at [facility], [address], [address], [place] [address] Ct Chest Abdomen Pelvis W Contrast Result [...] and coordination of care. CIERRA Hartley, MIKE [facility] Hematology Oncology 08/13/2019 Portions of [...] [place] | | | | | | [address] | | | | | | | | +--------+ + + + + | 11/26/ | Office | Oncology | Yancy Clifford MD | | | 2018 | Visit | | [address] | | | | | | [place] | | | | | | [address] | | | | | | | | | | | | Jennyfer Calvert | | | | | | EVELINE LouP [address] | | | | | | [address] | | | | | | [place] [address] | | | | | | [phone] | | | | | | | | +--------+ + + + + | 11/26/ | Appointment | Infusion Therapy | Yancy Clifford MD | | | 2018 | | | [address] | | | | | | [place] | | | | | | [address] | | | | | | | | +--------+ + + + + | 12/17/ | Appointment | Infusion Therapy | Yancy Clifford MD | | | 2019 | | | [address] | | | | | | [place] | | | | | | [address] | | | | | | | | +--------+ + + + + | 12/17/ | Office | Oncology | Yancy Clifford MD | | | 2019 | Visit | | [address] | | | | | | [place] | | | | | | [address] | | | | | | | | +--------+ + + + + | 12/17/ | Appointment | Infusion Therapy | Yancy Clifford MD | | | 2019 | | | [address] | | | | | | [place] | | | | | | [address] | | | | | | | [...] | | | | | TCL;[address] [facility] | | | | | | [facility];[place] [address] | | | | | | | | | | + + + + + + + + | Specimen | + + | Blood | + + + + + + + | Performing | Address | City/State/Zipcode | Phone Number | | Organization | | | | + + + + + | REFERENCE LAB | [address] [place] [address] | [place] [address] | [phone] | | [facility] | Blvd. | | | | LABORATORY | | | | + + + + + | REFERENCE LAB | [address] [place] [address] | [place] [address] | | | [facility] | Blvd. 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
--- OUTSIDE RECORDS SUMMARY | ~2019-11-22 | XMS | Encounter Summary ---
Demographics + + + | Address | [address] | | | [place] [address] | + + + | Home Phone [...] | | | | [place] [address] | | + + + + + | Emory Larios | EBENEZER | Unknown | | + + + + + Care Team Providers + +------+ + | Care Photographer Portrait Name | Role | Phone | + [...] | | | Ascites, | [place], | [place] [address] | | | | | malignant | [place] [address] | Phone: | | | | | Procedures | Phone: | [phone] | | | | | [place] | [phone] | Fax: | | | | | BEVACIZUMAB | Fax: | [phone] | | | | | INJECTION, | [phone] | | | | | | 10 MG [id number] | | | | | | | - [place] | | | | | | | [...] + | 08/13/ | Hospital | [facility] | Yancy Clifford MD | Malignant neoplasm | | 2019 | Encounter | HEMATOLOGY AND | [address] | of left ovary (HCC) | | | | ONCOLOGY INFUSIONS | [place] | (Primary Dx); | | | | [address] | [address] | Ascites, malignant | | | | [address]VE [place] | | | | | | [address] | | | | | | [phone] | | | +--------+ + + + [...] It is given by a health healthcare administrative assistant in a h ospital or clinic setting. Talk to your inspection engineer regarding the use of this medicine in children. Special care may be needed. What side effects may I notice from receiving this medicine? Side effects that you should report to your doctor or health healthcare administrative assistant as soon as p ossible: allergic [...] (report to your doctor or health healthcare administrative assistant if they continue or are bothersome): back pain changes in taste decreased appetite dry skin nausea tiredness What may interact with this medicine? Interactions are not expected. What if I miss a dose? It is important not to miss your dose. Call your doctor or health healthcare administrative assistant if you are unable to keep [...] talk to your doctor or health healthcare administrative assistant if you are concerned about your [...] 1 of every 21 day Bevacizumab after FINANCIAL AIDS OFFICER visit. Distress screening complet ed today at patients appointment with a 0 score. Copy of labs and calender given with next s cheduled appointment listed below. 09/03/2019 0745 - IVT LAB DRAW with [facility] LAB DRAW in [facility] INFUSION SUPPORT SERVICES 09/03/2019 0830 - Office Visit Extended appointment starts at 0845 with CIERRA Hartley in [facility] HEMATOLOGY AND ONCOLOGY 09/03/2019 0915 - Onc Infusion with [facility] [address] [facility] HEMATOLOGY AND ONCOLOGY INFUSIONS documented in this [...] [place] | | | | | | [address] | | | | | | | | +--------+ + + + + | 11/26/ | Office | Oncology | Yancy Clifford MD | | | 2018 | Visit | | [address] | | | | | | [place] | | | | | | [address] | | | | | | | | | | | | Jennyfer Calvert | | | | | | Carmine FINANCIAL AIDS OFFICER [address] | [address] | | | | | | [place] [address] | | | | | | [phone] | | | | | | | | +--------+ + + + + | 11/26/ | Appointment | Infusion Therapy | Yancy Clifford MD | | | 2018 | | | [address] | | | | | | [place] | | | | | | [address] | | | | | | | | +--------+ + + + + | 12/17/ | Appointment | Infusion Therapy | Yancy Clifford MD | | | 2019 | | | [address] | | | | | | [place] | | | | | | [address] | | | | | | | | +--------+ + + + + | 12/17/ | Office | Oncology | Yancy Clifford MD | | | 2019 | Visit | | [address] | | | | | | [place] | | | | | | [address] | | | | | | | | +--------+ + + + + | 12/17/ | Appointment | Infusion Therapy | Yancy Clifford MD | | | 2020 | | | [address] | | | | | | [place] | | | | | | [address] | | | | | | | [...]
--- OUTSIDE RECORDS SUMMARY | ~2019-11-22 | XMS | Encounter Summary ---
Demographics + + + | Address | [address] | | | [place] [address] | + + + | Home Phone [...] | | | | [place] [address] | | + + + + + | Emory Larios | ECON | Unknown | | + + + + + Care Team Providers + +------+ + | Care Ui Engineer Name | Role | Phone | + +------+ + | Shannan Deng | PCP | | + +------+ + Encounter Details +--------+ + + + + | Date | Type | Department | Care Team | Description | +--------+ + + + + | 07/23/ | Hospital | [facility] | Yancy Clifford MD | 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) | | | | SERVICES [address] | [place] | | | | | [address] [place] | [id number] | | | | | [address] [place] | | | | | | [address] | Donya Mckeon, | | | | | [phone] | RN | | +--------+ + + [...] | | | 2018 | | | [address] | | | | | | [place] | | | | | | [phone] | | | | | | | | +--------+ + + + + | 11/26/ | Office | Oncology | Yancy Clifford MD | | 2018 | Visit | | [address] | | | | | | [place] | | | | | | [address] | | | | | | | | | | | | Jennyfer Calvert | | | | | | Carmine RN TRAINING [address] | | | | | | [address] | | | | | | [place] [address] | | | | | | [phone] | | | | | | | | +--------+ + + + + | 11/26/ | Appointment | Infusion Therapy | Yancy Clifford MD | | | 2019 | | | [address] | | | | | | [place] | | | | | | [address] | | | | | | | [...] [place] | | | | | | [address] | | | | | | | | +--------+ + + + + | 12/17/ | Appointment | Infusion Therapy | Yancy Clifford MD | | | 2020 | | | [address] | | | | | | [place] | | | | | | [address] | | | | | | | | +--------+ + + + + documented as of this encounter Visit Diagnoses + + | Diagnosis | + + | Malignant neoplasm of left ovary (HCC) Malignant neoplasm of ovary | + + documented in this encounter"
--- OUTSIDE RECORDS SUMMARY | ~2019-11-22 | XMS | Encounter Summary ---
Demographics + + + | Address | [address] | | | [place] [address] | + + + | Home Phone [...] | | | | [place] [address] | | + + + + + | Emory Larios | ECON | Unknown | | + + + + + Care Team Providers + +------+ + | Care Waiter/Waitress Formal Name | Role | Phone | + +------+ + | Shannan Deng | PCP | | + +------+ + Encounter Details +--------+ + + + + | Date | Type | Department | Care Team | Description | +--------+ + + + + | 11/05/ | Hospital | [facility] | Yancy Clifford MD | 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) | | | | SERVICES [address] | [place] | (Primary Dx) | | | | [address] [place] | [phone] | | | | | [address] [facility] [place] | | | | | | [address] | Sherrill Javed, | | | | | [phone] | RN | | +--------+ + + [...] | | | 2018 | | | [address] | | | | | | [place] | | | | | | [address] | | | | | | | | +--------+ + + + + | 11/26/ | Office | Oncology | Yancy Clifford MD | | | 2018 | Visit | | [address] | | | | | | [place] | | | | | | [address] | | | | | | | | | | | | Jennyfer Calvert | | | | | | CIERRA Lou [address] | | | | | | [address] | | | | | | [place] [address] | | | | | | [phone] | | | | | | | | +--------+ + + + + | 11/26/ | Appointment | Infusion Therapy | Yancy Clifford MD | | | 2018 | | | [address] | | | | | | [place] | | | | | | [address] | | | | | | | | +--------+ + + + + | 12/17/ | Appointment | Infusion Therapy | Yancy Clifford MD | | | 2019 | | | [address] | | | | | | [place] | | | | | | [address] | | | | | | | | +--------+ + + + + | 12/17/ | Office | Oncology | Yancy Clifford MD | | | 2019 | Visit | | [address] | | | | | | [place] | | | | | | [address] | | | | | | | | +--------+ + + + + | 12/17/ | Appointment | Infusion Therapy | Yancy Clifford MD | | | 2020 | | | [address] | | | | | | [place] | | | | | | [address] | | | | | | | [...] [place] | | | | | | [address] | | | | + + + + + + + + | Specimen | + + | | + + + + + + + | Performing | Address | City/State/Zipcode | Phone Number | | Organization | | | | + + + + + | REFERENCE LAB | [address] [facility] [address] | [place] [address] | [phone] | | [facility] | vd. | | | | LABORATORY | | | | + + + + + | REFERENCE LAB | [address] [facility] | [place] [address] | | | [facility] | Blvd. | | | | LABORATORY [...] LAB | | | | performed at [facility];[address] | | [facility] | | | | [facility] | | LABORATORY | | | | Blvd;[place] [address] | | | | | | | | | | + + + + + + + + | Specimen | + + | | + + + + + + + | Performing | Address | City/State/Zipcode | Phone Number | | Organization | | | | + + + + + | REFERENCE LAB | [address] [place] [address] | [place] [address] | [phone] | | [facility] | Blvd. | | | | LABORATORY | | | | + + + + + | REFERENCE LAB | [address] [place] [address] | [place] [address] | | | [facility] | Blvd. | [...] | | | urine | performed at [facility];[address] | | [facility] | | | | [facility] | | LABORATORY | | | | Blvd;[place] [address] | | | | | | | | | | + + + + + + + + | Specimen | + + | | + + + + + + + | Performing | Address | City/State/Zipcode | Phone Number | | Organization | | | | + + + + + | REFERENCE LAB | [address] [place] [address] | [place] [address] | [phone] | | [facility] | Blvd. | | | | LABORATORY | | | | + + + + + | REFERENCE LAB | [address] [place] [address] | [place] [address] | | | [facility] | Blvd. | [...] - 1.030 | REFERENCE | | | [place], | | | LAB | | | [...] | | LABORATORY | | | | [address] | | | | + + + + + + + + | Specimen | + + | | + + + + + + + | Performing | Address | City/State/Zipcode | Phone Number | | Organization | | | | + + + + + | REFERENCE LAB | [address] [place] [address] | [place] [address] | [phone] | | [facility] | Blvd. | | | | LABORATORY | | | | + + + + + | REFERENCE LAB | [address] [place] [address] | [place] [address] | | | [facility] | Blvd. | [...] | | | RATIO,URINE | performed at [facility];[address] | | LAB | | | | [place] | | [facility] | | | | Blvd;[place] [address] | | LABORATORY | | + + + + + + + + | Specimen | + + | | + + + + + + + | Performing | Address | City/State/Zipcode | Phone Number | | Organization | | | | + + + + + | REFERENCE LAB | [address] [place] [address] | [place] [address] | [phone] | | [facility] | Blvd. | | | | LABORATORY | | | | + + + + + | REFERENCE LAB | [address] [place] [address] | [place] [address] | | | [facility] | Blvd. | [...] | | LABORATORY | | | | [address] | | | | + + + + + + + + | Specimen | + + | Blood | + + + + + + + | Performing | Address | City/State/Zipcode | Phone Number | | Organization | | | | + + + + + | REFERENCE LAB | [address] [facility] | [place] [address] | [phone] | | [facility] | Blvd. | | | | LABORATORY | | | | + + + + + | REFERENCE LAB | [address] [facility] | [place] [address] | | | [facility] | Blvd. | [...] | | | | | performed at [facility];[address] | | | | | | [facility] | | | | | | Blvd;[place] [address] | | | | | | | | | | + + + + + + + + | Specimen | + + | Blood | + + + + + + + | Performing | Address | City/State/Zipcode | Phone Number | | Organization | | | | + + + + + | REFERENCE LAB | [address] [facility] [address] | [place] [address] | [phone] | | [facility] | Blvd. | | | | LABORATORY | | | | + + + + + | REFERENCE LAB | [address] [facility] [address] | [place] [address] | | | [facility] | Blvd. | [...] | | | | Line Care, Starting [facility] 11/05/19 | | PM PST | | | | | at 1323 | | | | | | + +--------+ +--------+------+------+ +---+---+ | | | +---+---+ documented in this encounter"
--- OUTSIDE RECORDS SUMMARY | ~2019-11-22 | XMS | Encounter Summary ---
Demographics + + + | Address | [address] | | | [place] [address] | + + + | Home Phone | | + + + | Preferred Language | Unknown | + + + | Marital Status | | + + + | Sikhism Affiliation | Unknown | + + + [...] | | | | [place] [address] | | + + + + + | Emory Larios | ECON | Unknown | | + + + + + Care Team Providers + +------+ + | Care Furniture Sprayer Name | Role | Phone | + [...] 2019 | | [address] | [place] | of left ovary (HCC) | | | | [place] | | | | | | [address] | | | | | | [phone] | | | +--------+ + + + [...] | | | 2019 | | | [address] | | | | | | [place] | | | | | | [address] | | | | | | | | +--------+ + + + + | 11/26/ | Office | Oncology | Yancy Clifford MD | | | 2018 | Visit | | [address] | | | | | | [place] | | | | | | [address] | | | | | | | | | | | | Jennyfer Calvert | | | | | | CIERRA Lou [address] | | | | | | [address] | | | | | | [place] [address] | | | | | | [phone] | | | | | | | | +--------+ + + + + | 11/26/ | Appointment | Infusion Therapy | Yancy Clifford MD | | | 2018 | | | [address] | | | | | | [place] | | | | | | [address] | | | | | | | | +--------+ + + + + | 12/17/ | Appointment | Infusion Therapy | Yancy Clifford MD | | | 2019 | | | [address] | | | | | | [place] | | | | | | [address] | | | | | | | | +--------+ + + + + | 12/17/ | Office | Oncology | Yancy Clifford MD | | | 2019 | Visit | | [address] | | | | | | [place] | | | | | | [address] | | | | | | | | +--------+ + + + + | 12/17/ | Appointment | Infusion Therapy | Yancy Clifford MD | | | 2019 | | | [address] | | | | | | [place] | | | | | | [address] | | | | | | | [...] at | | | | | | TCL;[address] [place] [address] | | | | | | Blvd;[place] [address] | | | | | | | [...] | [address] [facility] | [place] [address] | [phone] | | [facility] | Blvd. | | | | LABORATORY | | | | + + + + + | REFERENCE LAB | [address] [facility] | [place] [address] | | | [facility] | Blvd. | | | | LABORATORY | | | | + + + + + documented in this encounter Visit Diagnoses + + | Diagnosis | + + | Malignant neoplasm of left ovary (HCC) Malignant neoplasm of ovary | + + documented in this encounter"
--- OUTSIDE RECORDS SUMMARY | ~2019-11-22 | XMS | Encounter Summary ---
Demographics + + + | Address | [address] [address] | | | [place] [address] | + + + | Home Phone | | + + + | Preferred Language | Unknown | + + + | Marital Status | | + + + | Christianity Affiliation | Unknown | + + + | Race | Unknown | + + + | Ethnic Group | Unknown | + + + Author + + + | Author | [facility] | | | and [place] | + + + | Organization | [facility] | | | [...] | | | | [place] [address] | | + + + + + | Emory Larios | ECON | Unknown | | + + + + + Care Team Providers + +------+ + | Care Fixing Carpenter Name | Role | Phone | + +------+ + | Shannan Deng | PCP | | + +------+ + Encounter Details +--------+ + + + + | Date | Type | Department | Care Team | Description | +--------+ + + + + | 07/17/ | Orders Only | [facility] | Scott Boswell MD | Moderate persistent | | 2019 | | PULMONOLOGY [address] | [address] | asthma, | | | | [address] | [place], [place] | uncomplicated; | | | | [place], [place] | [address] | Malignant neoplasm | | | | [address] | | of left ovary (HCC) | | | | [phone] | | | +--------+ + + + [...] [place] | | | | | | [id number] | | | | | | | | +--------+ + + + + | 11/26/ | Office | Oncology | Yancy Clifford MD | | | 2018 | Visit | | [address] | | | | | | [place] | | | | | | [address] | | | | | | | | | | | | Jennyfer Calvert | | | | | | CIERRA Lou [address] | | | | | [address] | | | | | | [place] [address] | | | | | | [phone] | | | | | | | | +--------+ + + + + | 11/26/ | Appointment | Infusion Therapy | Yancy Clifford MD | | | 2018 | | | [address] | | | | | | [place] | | | | | | [address] | | | | | | | | +--------+ + + + + | 12/17/ | Appointment | Infusion Therapy | Yancy Clifford MD | | | 2019 | | | [address] | | | | | | [place] | | | | | | [address] | | | | | | | | +--------+ + + + + | 12/17/ | Office | Oncology | Yancy Clifford MD | | | 2019 | Visit | | [address] | | | | | | [place] | | | | | | [address] | | | | | | | | +--------+ + + + + | 12/17/ | Appointment | Infusion Therapy | Yancy Clifford MD | | | 2019 | | | [address] | | | | | | [place] | | | | | | [address] | | | | | | | [...] Routin | Moderate | Expected: | | [place] | | e | persistent asthma, | [...]
--- OUTSIDE RECORDS SUMMARY | ~2019-11-22 | XMS | Encounter Summary ---
Demographics + + + | Address | [address] | | | [place] [address] | + + + | Home Phone | | + + + | Preferred Language | Unknown | + + + | Marital Status | | + + + | Jehovah'S Witness Affiliation | Unknown | + + + | Race | Unknown | + + + | Ethnic Group | Unknown | + + + Author + + + | Author | [facility] | | | and [place] | + + + | Organization | [facility] | | | [...] | | | | [place] [address] | | + + + + + | Emory Larios | ECON | Unknown | | + + + + + Care Team Providers + +------+ + | Care Fish Packer Name | Role | Phone | [...] | | | Ascites, | [place], | [place] [address] | | | | | malignant | [place] [address] | Phone: | | | | | Procedures | Phone: | [phone] | | | | | [place] | [phone] | Fax: | | | | | BEVACIZUMAB | Fax: | [phone] | | | | | INJECTION, | [phone] | | | | | | 10 [...] + + | 09/24/ | Hospital | [facility] | Yancy Clifford MD | Malignant neoplasm | | 2019 | Encounter | HEMATOLOGY AND | [address] | of left ovary (HCC) | | | | ONCOLOGY INFUSIONS | [place] | (Primary Dx); | | | | [address] | [id number] | Ascites, malignant | | | | AVE [place], [place] | | | | | | [address] | | | | | | [phone] | | | +--------+ + + + [...] prevent mouth sores: Keep your mouth clean. [place] your teeth with a soft-bristle toothbrush after [...] baking soda to clean your mouth. M [id number] salt [id number] of baking soda in 1 quart of [...] begins to ooze Burning when you urinate Saqwvcy196.4F (38C) tiffani pineda directed by your healthcare provider Date Last Reviewed: 04/01/201619999278-9674 [employer]. [address] [place] [address]. All righ ts reserved. This information is [...] for any concerns or questions. [facility] with copy of labs and calendar [...] [place] | | | | | | [address] | | | | | | | | +--------+ + + + + | 11/26/ | Office | Oncology | Yancy Clifford MD | | | 2018 | Visit | | [address] | | | | | | [place] | | | | | | [address] | | | | | | | | | | | | Jennyfer Calvert | | | | | | EVELINE LouP [address] | | | | | | [address] | | | | | | [place] [address] | | | | | | [phone] | | | | | | | | +--------+ + + + + | 11/26/ | Appointment | Infusion Therapy | Yancy Clifford MD | | | 2018 | | | [address] | | | | | | [place] | | | | | | [address] | | | | | | | | +--------+ + + + + | 12/17/ | Appointment | Infusion Therapy | Yancy Clifford MD | | | 2019 | | | [address] | | | | | | [place] | | | | | | [address] | | | | | | | | +--------+ + + + + | 12/17/ | Office | Oncology | Yancy Clifford MD | | | 2019 | Visit | | [address] | | | | | | [place] | | | | | | [address] | | | | | | | | +--------+ + + + + | 12/17/ | Appointment | Infusion Therapy | Yancy Clifford MD | | | 2019 | | | [address] | | | | | | [place] | | | | | | [address] | | | | | | | [...] | | | over 30 Minutes, ONCE, [facility] | | | | | | [...]
--- OUTSIDE RECORDS SUMMARY | ~2019-11-22 | XMS | Encounter Summary ---
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 OPERATOR | of left ovary (HCC); | | | | ONCOLOGY [address] | | Ascites, malignant | | | | [address] | | | | | | [place] | | | | | | [address] | | | | | | [phone] | | | +--------+ + + + [...] [place] | | | | | | [address] | | | | | | | | +--------+ + + + + | 11/26/ | Office | Oncology | Yancy Clifford MD | | | 2018 | Visit | | [address] | | | | | | [place] | | | | | | [address] | | | | | | | | | | | | Jennyfer Calvert | | | | | | CIERRA Lou [address] | | | | | | [address] | | | | | | [place] [address] | | | | | | [phone] | | | | | | | | +--------+ + + + + | 11/26/ | Appointment | Infusion Therapy | Yancy Clifford MD | | | 2018 | | | [address] | | | | | | [place] | | | | | | [address] | | | | | | | | +--------+ + + + + | 12/17/ | Appointment | Infusion Therapy | Yancy Clifford MD | | | 2019 | | | [address] | | | | | | [place] | | | | | | [address] | | | | | | | | +--------+ + + + + | 12/17/ | Office | Oncology | Yancy Clifford MD | | | 2019 | Visit | | [address] | | | | | | [place] | | | | | | [address] | | | | | | | | +--------+ + + + + | 12/17/ | Appointment | Infusion Therapy | Yancy Clifford MD | | | 2019 | | | [address] | | | | | | [place] | | | | | | [address] | | | | | | | | +--------+ + + + + documented as of this encounter Visit Diagnoses + + | Diagnosis | + + | Malignant neoplasm of left ovary (HCC) Malignant neoplasm of ovary | + + | Ascites, malignant Malignant ascites | + + documented in this encounter
--- OUTSIDE RECORDS SUMMARY | ~2019-11-22 | XMS | Encounter Summary ---
Demographics + + + | Address | [address] | | | [place] [address] | + + + | Home Phone [...] | | | | [place] [address] | | + + + + + | Emory Larios | ECON | Unknown | | + + + + + Care Team Providers + +------+ + | Care Diesel Truck Mechanic Name | Role | Phone | [...] Provider Unknown | | | | | [place], [place] | [phone] | | | | | [address] | | | | | | [phone] | | | +--------+ + + + [...] [place] | | | | | | [id number] | | | | | | | | +--------+ + + + + | 11/26/ | Office | Oncology | Yancy Clifford MD | | | 2018 | Visit | | [address] | | | | | | [place] | | | | | | [address] | | | | | | | | | | | | Jennyfer Calvert | | | | | | CIERRA Lou [address] | | | | | | [address] | | | | | | [place] [address] | | | | | | [phone] | | | | | | | | +--------+ + + + + | 11/26/ | Appointment | Infusion Therapy | Yancy Clifford MD | | | 2018 | | | [address] | | | | | | [place] | | | | | | [address] | | | | | | | | +--------+ + + + + | 12/17/ | Appointment | Infusion Therapy | Yancy Clifford MD | | | 2019 | | | [address] | | | | | | [place] | | | | | | [address] | | | | | | | | +--------+ + + + + | 12/17/ | Office | Oncology | Yancy Clifford MD | | | 2019 | Visit | | [address] | | | | | | [place] | | | | | | [address] | | | | | | | | +--------+ + + + + | 12/17/ | Appointment | Infusion Therapy | Yancy Clifford MD | | | 2019 | | | [address] | | | | | | [place] | | | | | | [address] | | | | | | | | +--------+ + + + + documented as of this encounter Visit Diagnoses Not on filedocumented in this encounter"
--- OUTSIDE RECORDS SUMMARY | ~2019-11-22 | XMS | Encounter Summary ---
Demographics + + + | Address | [address] | | | [place] [address] | + + + | Home Phone | | + + + | Preferred Language | Unknown | + + + | Marital Status | | + + + | Congregational Affiliation | Unknown | + + + | Race | Unknown | + + + | Ethnic Group | Unknown | + + + Author + + + | Author | [facility] | | | and [place] | + + + | Organization | [facility] | | [...] | | | | [place] [address] | | + + + + + | Emory Larios | ECON | Unknown | | + + + + + Care Team Providers + +------+ + | Care Graphic Technician Name | Role | Phone | [...] Provider Unknown | | | | | [place], [place] | [phone] | | | | | [address] | | | | | | [phone] | | | +--------+ + + + [...] [place] | | | | | | [id number] | | | | | | | | +--------+ + + + + | 11/26/ | Office | Oncology | Yancy Clifford MD | | | 2018 | Visit | | [address] | | | | | | [place] | | | | | | [address] | | | | | | | | | | | | Jennyfer Calvert | | | | | | CIERRA Lou [address] | | | | | | [address] | | | | | | [place] [address] | | | | | | [phone] | | | | | | | | +--------+ + + + + | 11/26/ | Appointment | Infusion Therapy | Yancy Clifford MD | | | 2018 | | | [address] | | | | | | [place] | | | | | | [address] | | | | | | | | +--------+ + + + + | 12/17/ | Appointment | Infusion Therapy | Yancy Clifford MD | | | 2019 | | | [address] | | | | | | [place] | | | | | | [address] | | | | | | | | +--------+ + + + + | 12/17/ | Office | Oncology | Yancy Clifford MD | | | 2019 | Visit | | [address] | | | | | | [place] | | | | | | [address] | | | | | | | | +--------+ + + + + | 12/17/ | Appointment | Infusion Therapy | Yancy Clifford MD | | | 2019 | | | [address] | | | | | | [place] | | | | | | [address] | | | | | | | | +--------+ + + + + documented as of this encounter Visit Diagnoses Not on filedocumented in this encounter"
--- OUTSIDE RECORDS SUMMARY | ~2019-11-22 | XMS | Encounter Summary ---
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) | | | | SERVICES [address] | [place] | (Primary Dx) | | | | [address] [place] | [id number] | | | | | [address] [place] | | | | | | [address] | | | | | | [phone] | | | +--------+ + + + [...] | | | 2018 | | | [address] | | | | | | [place] | | | | | | [address] | | | | | | | | +--------+ + + + + | 11/26/ | Office | Oncology | Yancy Clifford MD | | | 2018 | Visit | | [address] | | | | | | [place] | | | | | | [address] | | | | | | | | | | | | Nehal, Jennyfer | | | | | | CarmineCIERRA [address] | [address] | | | | | | [place] [address] | | | | | | [phone] | | | | | | | | +--------+ + + + + | 11/26/ | Appointment | Infusion Therapy | Yancy Clifford MD | | | 2018 | | | [address] | | | | | | [place] | | | | | | [address] | | | | | | | | +--------+ + + + + | 12/17/ | Appointment | Infusion Therapy | Yancy Clifford MD | | | 2019 | | | [address] | | | | | | [place] | | | | | | [address] | | | | | | | | +--------+ + + + + | 12/17/ | Office | Oncology | Yancy Clifford MD | | | 2019 | Visit | | [address] | | | | | | [place] | | | | | | [address] | | | | | | | | +--------+ + + + + | 12/17/ | Appointment | Infusion Therapy | Yancy Clifford MD | | | 2019 | | | [address] | | | | | | [place] | | | | | | [address] | | | | | | | [...] LAB | | | | Performed at [facility], [address] | | [facility] | | | | [address] | | LABORATORY | | | | [place] | | | | | | [address] | | | | + + + + + + + + | Specimen | + + | | + + + + + + + | Performing | Address | City/State/Zipcode | Phone Number | | Organization | | | | + + + + + | REFERENCE LAB | [address] [place] [address] | [place] [address] | [phone] | | [facility] | Blvd. | | | | LABORATORY | | | | + + + + + | REFERENCE LAB | [address] [place] [address] | [place] [address] | | | [facility] | Blvd. | [...] LAB | | | | performed at [facility];[address] | | [facility] | | | | [facility] | | LABORATORY | | | | Blvd;[place] [address] | | | | | | | | | | + + + + + + + + | Specimen | + + | | + + + + + + + | Performing | Address | City/State/Zipcode | Phone Number | | Organization | | | | + + + + + | REFERENCE LAB | [address] [place] [address] | [place] [address] | [phone] | | [facility] | Blvd. | | | | LABORATORY | | | | + + + + + | REFERENCE LAB | [address] [place] [address] | [place] [address] | | | [facility] | Blvd. | [...] | | | urine | performed at [facility];[address] | | [facility] | | | | [facility] | | LABORATORY | | | | Blvd;[place] [address] | | | | | | | | | | + + + + + + + + | Specimen | + + | | + + + + + + + | Performing | Address | City/State/Zipcode | Phone Number | | Organization | | | | + + + + + | REFERENCE LAB | [address] | [place] [address] | [phone] | | [facility] | Blvd. | | | | LABORATORY | | | | + + + + + | REFERENCE LAB | [address] | [place] [address] | | | [facility] | Blvd. | [...] - 1.030 | REFERENCE | | | [place], | | | LAB | | | [...] | | LABORATORY | | | | [address] | | | | + + + + + + + + | Specimen | + + | | + + + + + + + | Performing | Address | City/State/Zipcode | Phone Number | | Organization | | | | + + + + + | REFERENCE LAB | [address] [place] [address] | [place] [address] | [phone] | | [facility] | Blvd. | | | | LABORATORY | | | | + + + + + | REFERENCE LAB | [address] [place] [address] | [place] [address] | | | [facility] | Blvd. | [...] | | | RATIO,URINE | performed at [facility];[address] | | LAB | | | | [place] | | [facility] | | | | Blvd;[place] [address] | | LABORATORY | | + + + + + + + + | Specimen | + + | | + + + + + + + | Performing | Address | City/State/Zipcode | Phone Number | | Organization | | | | + + + + + | REFERENCE LAB | [address] | [place] [address] | [phone] | | [facility] | Blvd. | | | | LABORATORY | | | | + + + + + | REFERENCE LAB | [address] | [place] [address] | | | [facility] | Blvd. | [...] [place] | | | | | | [address] | | | | + + + + + + + + | Specimen | + + | Blood | + + + + + + + | Performing | Address | City/State/Zipcode | Phone Number | | Organization | | | | + + + + + | REFERENCE LAB | [address] [place] [address] | [place] [address] | [phone] | | [facility] | Blvd. | | | | LABORATORY | | | | + + + + + | REFERENCE LAB | [address] [place] [address] | [place] [address] | | | [facility] | Blvd. | [...] | | LABORATORY | | | | [address] | | | | + + + + + + + + | Specimen | + + | Blood | + + + + + + + | Performing | Address | City/State/Zipcode | Phone Number | | Organization | | | | + + + + + | REFERENCE LAB | [address] | [place] [address] | [phone] | | [facility] | Blvd. | | | | LABORATORY | | | | + + + + + | REFERENCE LAB | [address] | [place] [address] | | | [facility] | Blvd. | [...]
--- OUTSIDE RECORDS SUMMARY | ~2019-11-22 | XMS | Encounter Summary ---
Demographics + + + | Address | [address] | | | [place] [address] | + + + | Home Phone [...] | | | | | [place] [address] | | + + + + + | Emory Larios | ECON | Unknown | | + + + + + Care Team Providers + +------+ + | Care Manager Of Transportation Name | Role | Phone | + +------+ + PCP | Unavailable | + +------+ + Encounter Details +--------+ + + + + | Date | Type | Department | Care Team | Description | +--------+ + + + + | 06/11/ | Orders Only | [facility] | Yancy Clifford MD | | | 2019 | | [address] [facility] | [address] | | | | | [place] | [place] | | | | | [address] | [address] | | | | | [phone] | | | +--------+ + + + [...] [place] | | | | | | [id number] | | | | | | | | +--------+ + + + + | 11/26/ | Office | Oncology | Yancy Clifford MD | | | 2018 | Visit | | [address] | | | | | | [place] | | | | | | [id number] | | | | | | | | | | | | Jennyfer Calvert | | | | | | CIERRA Lou [address] | | | | | | [address] | | | | | | [place] [address] | | | | | | [phone] | | | | | | | | +--------+ + + + + | 11/26/ | Appointment | Infusion Therapy | Ynacy Clifford MD | | | 2018 | | | [address] | | | | | | [place] | | | | | | [address] | | | | | | | | +--------+ + + + + | 12/17/ | Appointment | Infusion Therapy | Yancy Clifford MD | | | 2019 | | | [address] | | | | | | [place] | | | | | | [address] | | | | | | | | +--------+ + + + + | 12/17/ | Office | Oncology | Yancy Clifford MD | | | 2019 | Visit | | [address] | | | | | | [place] | | | | | | [address] | | | | | | | | +--------+ + + + + | 12/17/ | Appointment | Infusion Therapy | Yancy Clifford MD | | | 2020 | | | [address] | | | | | | [place] | | | | | | [address] | | | | | | | [...] | EXTERNAL | | | | (FORMERLY markedup) [facility] | | LAB | | | [...]
--- OUTSIDE RECORDS SUMMARY | ~2019-11-22 | XMS | Encounter Summary ---
Demographics + + + | Address | [address] | | | [place] [address] | + + + | Home Phone [...] | | | | [place] [address] | | + + + + + | Emory Larios | ECON | Unknown | | + + + + + Care Team Providers + +------+ + | Care Dialysis Chief Equipment Technician Name | Role | Phone | + +------+ + | Shannan Deng | PCP | | + +------+ + Encounter Details +--------+ + + + + | Date | Type | Department | Care Team | Description | +--------+ + + + + | 08/13/ | Hospital | [facility] | Yancy Clifford MD | 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) | | | | SERVICES [address] | [place] | (Primary Dx) | | | | [address] [place] | [id number] | | | | | [address] [place] | | | | | | [address] | Sushma Marquis | | | | | [phone] | Tiana RN | | +--------+ + [...] | | | 2018 | | | [address] | | | | | | [place] | | | | | | [address] | | | | | | | | +--------+ + + + + | 11/26/ | Office | Oncology | Yancy Clifford MD | | | 2018 | Visit | | [address] | | | | | | [place] | | | | | | [address] | | | | | | | | | | | | Jennyfer Calvert | | | | | | CIERRA Lou [address] | | | | | [address] | | | | | | [place] [address] | | | | | | [phone] | | | | | | | | +--------+ + + + + | 11/26/ | Appointment | Infusion Therapy | Yancy Clifford MD | | | 2018 | | | [address] | | | | | | [place] | | | | | | [address] | | | | | | | | +--------+ + + + + | 12/17/ | Appointment | Infusion Therapy | Yancy Clifford MD | | | 2019 | | | [address] | | | | | | [place] | | | | | | [address] | | | | | | | | +--------+ + + + + | 12/17/ | Office | Oncology | Yancy Clifford MD | | | 2019 | Visit | | [address] | | | | | | [place] | | | | | | [address] | | | | | | | | +--------+ + + + + | 12/17/ | Appointment | Infusion Therapy | Yancy Clifford MD | | | 2019 | | | [address] | | | | | | [place] | | | | | | [address] | | | | | | | [...] | | | | | until 08/13/2020, 4 | | | | | | completed | + +------+--------+ + + | Comprehensive | Lab | STAT | Malignant neoplasm | 20 Occurrences | | Metabolic Panel | | | of left ovary (HCC) | starting 08/13/2019 | | | | | | until 08/13/2020, 4 | | | | | | completed [...] | | | | | | until 08/13/2020 | + +------+--------+ + + documented as [...] in this encounter Results Comprehensive Metabolic Panel (11/05/2019 1:17 PM PST) [...] | | | | | performed at [facility];[address] | | | | | [address] | | | | | | [address];[place] [address] | | | | | | | | | | + + + + + + + + | Specimen | + + | Blood | + + + + + + + | Performing | Address | City/State/Zipcode | Phone Number | | Organization | | | | + + + + + | REFERENCE LAB | [address] [place] [facility] | [place] [address] | [phone] | | [facility] | Blvd[address] | | | | LABORATORY | | | | + + + + + | REFERENCE LAB | [address] [place] [facility] | [place] [address] | | | [facility] | Blvd. | [...] | | LABORATORY | | | | [address] | | | | + + + + + + + + | Specimen | + + | Blood | + + + + + + + | Performing | Address | City/State/Zipcode | Phone Number | | Organization | | | | + + + + + | REFERENCE LAB | [address] [place] [address] | [place] [address] | [phone] | | [facility] | Blvd. | | | | LABORATORY | | | | + + + + + | REFERENCE LAB | [address] [place] [facility] | [place] [address] | | | [facility] | Blvd. | [...] - 1.030 | REFERENCE | | | [place], | | | LAB | | | [...] REFERENCE | | | | Performed at [facility], [address] | | LAB | | | | [address] | | [facility] | | | | [address], [place] | | LABORATORY | | | | [address] | | | | + + + + + + + + | Specimen | + + | Urine | + + + + + + + | Performing | Address | City/State/Zipcode | Phone Number | | Organization | | | | + + + + + | REFERENCE LAB | [address] [place] [address] | [place] [address] | [phone] | | [facility] | Blvd. | | | | LABORATORY | | | | + + + + + | REFERENCE LAB | [address] [place] [address] | [place] [address] | | | [facility] | Blvd. | [...] [facility] | | | | Blvd;[place] [address] | | LABORATORY | | + + + + + + | K | 4.3Comment: Testing | 3.5 - 4.9 | REFERENCE | | | | performed at [facility];[address] | mmol/L | LAB | | | | [place] | | [facility] | | | | Bl[address];[place] [address] | | LABORATORY | | + + + + + + | Cl | 105Comment: Testing | 99 - 109 mmol/L | REFERENCE | | | | performed at [facility];[address] | | LAB | | | | [place] | | [facility] | | | | Bl[address];[place] [address] | | LABORATORY | | + + + + + + | CO2 | 26Comment: Testing | 23 - 32 mmol/L | REFERENCE | | | | Performed at [facility], [address] | | LAB | | | | [address] | | [facility] | | | | [address], [place] | | LABORATORY | | | | [address] | | | | + + + + + + | Anion Gap | 11Comment: Testing | 5 - 20 mmol/L | REFERENCE | | | | performed at [facility];[address] | | LAB | | | | [address] | | [facility] | | | | Bl[address];[place] [address] | | LABORATORY | | + + [...] | | | | | | [address], [place] | | | | | | [address] | | | | + + + + + + + + | Specimen | + + | Blood | + + + + + + + | Performing | Address | City/State/Zipcode | Phone Number | | Organization | | | | + + + + + | REFERENCE LAB | [address] [place] [address] | [place] [address] | [phone] | | [facility] | Blvd. | | | | LABORATORY | | | | + + + + + | REFERENCE LAB | [address] [place] [address] | [place] [address] | | | [facility] | Blvd. | [...] | | LABORATORY | | | | [address] | | | | + + + + + + + + | Specimen | + + | Blood | + + + + + + + | Performing | Address | City/State/Zipcode | Phone Number | | Organization | | | | + + + + + | REFERENCE LAB | [address] [place] [facility] | [place] [address] | [phone] | | [facility] | Blvd. | | | | LABORATORY | | | | + + + + + | REFERENCE LAB | [address] [place] [facility] | [place] [address] | | | [facility] | Blvd. | | | | LABORATORY [...] [facility] | | | | Blvd;[place] [address] | | LABORATORY | | + + + + + + | K | 4.1Comment: Testing | 3.5 - 4.9 | REFERENCE | | | | performed at [facility];[address] | mmol/L | LAB | | | | [place] | | [facility] | | | | Bl[address];[place] [address] | | LABORATORY | | + + + + + + | Cl | 104Comment: Testing | 99 - 109 mmol/L | REFERENCE | | | | performed at [facility];[address] | | LAB | | | | [place] | | [facility] | | | | Bl[address];[place] [address] | | LABORATORY | | + + + + + + | CO2 | 26Comment: Testing | 23 - 32 mmol/L | REFERENCE | | | | Performed at [facility], [address] | | LAB | | | | [address] | | [facility] | | | | [address], [place] | | LABORATORY | | | | [address] | | | | + + + + + + | Anion Gap | 10Comment: Testing | 5 - 20 mmol/L | REFERENCE | | | | performed at [facility];[address] | | LAB | | | | [place] | | [facility] | | | | Blvd;[place] [address] | | LABORATORY | | + + [...] | | | | | Performed at [facility], [address] | | | | | | [address] | | | | | | [address], [place] | | | | | | [address] | | | | + + + + + + + + | Specimen | + + | Blood | + + + + + + + | Performing | Address | City/State/Zipcode | Phone Number | | Organization | | | | + + + + + | REFERENCE LAB | [address] [place] [facility] | [place] [address] | [phone] | | [facility] | Blvd. | | | | LABORATORY | | | | + + + + + | REFERENCE LAB | [address] [place] [facility] | [place] [address] | | | [facility] | Blvd. | [...] | | LABORATORY | | | | [address] | | | | + + + + + + + + | Specimen | + + | Blood | + + + + + + + | Performing | Address | City/State/Zipcode | Phone Number | | Organization | | | | + + + + + | REFERENCE LAB | [address] [place] [facility] | [place] [address] | [phone] | | [facility] | Blvd. | | | | LABORATORY | | | | + + + + + | REFERENCE LAB | [address] [place] [facility] | [place] [address] | | | [facility] | Blvd. | [...] [place] | | | | | | [address] | | | | + + + + + + + + | Specimen | + + | Blood | + + + + + + + | Performing | Address | City/State/Zipcode | Phone Number | | Organization | | | | + + + + + | REFERENCE LAB | [address] [place] [address] | [place] [address] | [phone] | | [facility] | Blvd. | | | | LABORATORY | | | | + + + + + | REFERENCE LAB | [address] [place] [facility] | [place] [address] | | | [facility] | Blvd. | [...] | | | Morphology | Performed at [facility], [address] | | LAB | | | | [address] | | [facility] | | | | [address], [place] | | LABORATORY | | | | [address] | | | | + + + + + + + + | Specimen | + + | Blood | + + + + + + + | Performing | Address | City/State/Zipcode | Phone Number | | Organization | | | | + + + + + | REFERENCE LAB | [address] [place] [facility] | [place] [address] | [phone] | | [facility] | Blvd. | | | | LABORATORY | | | | + + + + + | REFERENCE LAB | [address] [place] [facility] | [place] [address] | | | [facility] | Blvd. | [...] [place] | | | | | | [address] | | | | + + + + + + + + | Specimen | + + | | + + + + + + + | Performing | Address | City/State/Zipcode | Phone Number | | Organization | | | | + + + + + | REFERENCE LAB | [address] [place], [place] [address] | [place] [address] | [phone] | | [facility] | Blvd. | | | | LABORATORY | | | | + + + + + | REFERENCE LAB | [address] [place], [place] [address] | [place] [address] | | | [facility] | Blvd. | [...] LAB | | | | performed at [facility];[address] | | [facility] | | | | [facility] | | LABORATORY | | | | Blvd;[place] [address] | | | | | | | | | | + + + + + + + + | Specimen | + + | | + + + + + + + | Performing | Address | City/State/Zipcode | Phone Number | | Organization | | | | + + + + + | REFERENCE LAB | [address] [place] [address] | [place] [address] | [phone] | | [facility] | Blvd. | | | | LABORATORY | | | | + + + + + | REFERENCE LAB | [address] [place] [address] | [place] [address] | | | [facility] | Blvd. | [...] | | | urine | performed at [facility];[address] | | [facility] | | | | [facility] | | LABORATORY | | | | Blvd;[place] [address] | | | | | | | | | | + + + + + + + + | Specimen | + + | | + + + + + + + | Performing | Address | City/State/Zipcode | Phone Number | | Organization | | | | + + + + + | REFERENCE LAB | [address] [place] [address] | [place] [address] | [phone] | | [facility] | Blvd. | | | | LABORATORY | | | | + + + + + | REFERENCE LAB | [address] [place] [address] | [place] [address] | | | [facility] | Blvd. | [...] - 1.030 | REFERENCE | | | [place], | | | LAB | | | [...] | | LABORATORY | | | | [address] | | | | + + + + + + + + | Specimen | + + | | + + + + + + + | Performing | Address | City/State/Zipcode | Phone Number | | Organization | | | | + + + + + | REFERENCE LAB | [address] [place] [address] | [place] [address] | [phone] | | [facility] | Blvd. | | | | LABORATORY | | | | + + + + + | REFERENCE LAB | [address] [place] [address] | [place] [address] | | | [facility] | Blvd. | [...] | | | RATIO,URINE | performed at [facility];[address] | | LAB | | | | [place] | | [facility] | | | | Blvd;[place] [address] | | LABORATORY | | + + + + + + + + | Specimen | + + | | + + + + + + + | Performing | Address | City/State/Zipcode | Phone Number | | Organization | | | | + + + + + | REFERENCE LAB | [address] [place] [address] | [place] [address] | [phone] | | [facility] | Blvd. | | | | LABORATORY | | | | + + + + + | REFERENCE LAB | [address] [place] [address] | [place] [address] | | | [facility] | Blvd. | [...] | | | | | Performed at [facility], [address] | | | | | | [address] | | | | | | [address], [place] | | | | | | [address] | | | | + + + + + + + + | Specimen | + + | | + + + + + + + | Performing | Address | City/State/Zipcode | Phone Number | | Organization | | | | + + + + + | REFERENCE LAB | [address] [place] [facility] | [place] [address] | [phone] | | [facility] | Blvd. | | | | LABORATORY | | | | + + + + + | REFERENCE LAB | [address] [place] [facility] | [place] [address] | | | [facility] | Blvd. | [...] LAB | | | | Performed at [facility], [address] | | [facility] | | | | [address] | | LABORATORY | | | | [address], [place] | | | | | | [address] | | | | + + + + + + + + | Specimen | + + | | + + + + + + + | Performing | Address | City/State/Zipcode | Phone Number | | Organization | | | | + + + + + | REFERENCE LAB | [address] [place], [place] [address] | [place] [address] | [phone] | | [facility] | Blvd. | | | | LABORATORY | | | | + + + + + | REFERENCE LAB | [address] [place], [place] [address] | [place] [address] | | | [facility] | Blvd. | [...]
--- OUTSIDE RECORDS SUMMARY | ~2019-11-22 | XMS | Encounter Summary ---
Demographics + + + | Address | [address] | | | [place] [address] | + + + | Home Phone [...] | | | | [place] [address] | | + + + + + | Emory Larios | ECON | Unknown | | + + + + + Care Team Providers + +------+ + | Care Manager Staffing Name | Role | Phone | + [...] Provider Unknown | | | | | [place], [place] | [phone] | | | | | [address] | | | | | | [phone] | | | +--------+ + + + [...] [place] | | | | | | [id number] | | | | | | | | +--------+ + + + + | 11/26/ | Office | Oncology | Yancy Clifford MD | | | 2018 | Visit | | [address] | | | | | | [place] | | | | | | [address] | | | | | | | | | | | | Jennyfer Calvert | | | | | | CIERRA Lou [address] | | | | | | [address] | | | | | | [place] [address] | | | | | | [phone] | | | | | | | | +--------+ + + + + | 11/26/ | Appointment | Infusion Therapy | Yancy Clifford MD | | | 2018 | | | [address] | | | | | | [place] | | | | | | [address] | | | | | | | | +--------+ + + + + | 12/17/ | Appointment | Infusion Therapy | Yancy Clifford MD | | | 2019 | | | [address] | | | | | | [place] | | | | | | [address] | | | | | | | | +--------+ + + + + | 12/17/ | Office | Oncology | Yancy Clifford MD | | | 2019 | Visit | | [address] | | | | | | [place] | | | | | | [address] | | | | | | | | +--------+ + + + + | 12/17/ | Appointment | Infusion Therapy | Yancy Clifford MD | | | 2019 | | | [address] | | | | | | [place] | | | | | | [address] | | | | | | | | +--------+ + + + + documented as of this encounter Visit Diagnoses Not on filedocumented in this encounter"
--- OUTSIDE RECORDS SUMMARY | ~2019-11-22 | XMS | Encounter Summary ---
Demographics + + + | Address | [address] | | | [place] [address] | + + + | Home Phone [...] | | | | [place] [address] | | + + + + + | Emory Larios | ECON | Unknown | | + + + + + Care Team Providers + +------+ + | Care Molded Parts Inspector Name | Role | Phone | [...] Unknown | | | | | [place], [place] | [phone] | | | | | [address] | | | | | | [phone] | | | +--------+ + + + [...] [place] | | | | | | [id number] | | | | | | | | +--------+ + + + + | 11/26/ | Office | Oncology | Yancy Clifford MD | | | 2018 | Visit | | [address] | | | | | | [place] | | | | | | [address] | | | | | | | | | | | | Jennyfer [address]vert | | | | | | CIER[address] | | | | | | [address] | | | | | | [place] [address] | | | | | | [phone] | | | | | | | | +--------+ + + + + | 11/26/ | Appointment | Infusion Therapy | Yancy Clifford MD | | | 2018 | | | [address] | | | | | | [place] | | | | | | [address] | | | | | | | | +--------+ + + + + | 12/17/ | Appointment | Infusion Therapy | Yancy Clifford MD | | | 2019 | | | [address] | | | | | | [place] | | | | | | [address] | | | | | | | | +--------+ + + + + | 12/17/ | Office | Oncology | Yancy Clifford MD | | | 2019 | Visit | | [address] | | | | | | [place] | | | | | | [address] | | | | | | | | +--------+ + + + + | 12/17/ | Appointment | Infusion Therapy | Yancy Clifford MD | | | 2019 | | | [address] | | | | | | [place] | | | | | | [address] | | | | | | | | +--------+ + + + + documented as of this encounter Visit Diagnoses Not on filedocumented in this encounter"
--- OUTSIDE RECORDS SUMMARY | ~2019-11-22 | XMS | Encounter Summary ---
Demographics + + + | Address | [address] | | | [place] [address] | + + + | Home Phone [...] | | | | [place] [address] | | + + + + + | Emory Larios | EBENEZER | Unknown | | + + + + + Care Team Providers + +------+ + | Care Senior Marketing Data Analyst Name | Role | Phone | [...] | | [facility], | [place], | [place] [address] | | | | | malignant | [place] [address] | Phone: | | | | | Procedures | Phone: | [phone] | | | | | [place] | [phone] | Fax: | | | | | BEVACIZUMAB | Fax: | [phone] | | | | | INJECTION, | [phone] | | | | | | 10 [...] + + | 08/13/ | Hospital | [facility] | Yancy Clifford MD | [...] [place] | | | | | | [address] | | | | | | [phone] | | | +--------+ + + + [...] It is given by a health care coordinator in a h ospital or clinic setting. Talk to your clip loading machine adjuster regarding the use of this medicine in children. Special care may be needed. What side effects may I notice from receiving this medicine? Side effects that you should report to your doctor or health care coordinator as soon as p ossible: [...] (report to your doctor or health care coordinator if they continue or are bothersome): back pain changes in taste decreased appetite dry skin nausea tiredness What may interact with this medicine? Interactions are not expected. What if I miss a dose? It is important not to miss your dose. Call your doctor or health care coordinator if you are unable to [...] talk to your doctor or health care coordinator if you are concerned about [...] 1 of every 21 day Bevacizumab after PARTY PLAN DEALER visit. Distress screening complet ed today at patients appointment with a 0 score. Copy of labs and calender given with next s cheduled appointment listed below. 09/03/2019 0745 - IVT LAB DRAW with CATRACHITO BOO SS LAB DRAW in [facility] INFUSION SUPPORT SERVICES 09/03/2019 0830 - Office Visit Extended appointment starts at 0845 with CIERRA Hartley in [facility] HEMATOLOGY AND ONCOLOGY 09/03/2019 0915 - Onc Infusion with [facility] 16 in [facility] HEMAT[facility] AND ONCOLOGY INFUSIONS documented [...] [place] | | | | | | [address] | | | | | | | | +--------+ + + + + | 11/26/ | Office | Oncology | Yancy Clifford MD | | | 2018 | Visit | | [address] | | | | | | [place] | | | | | | [address] | | | | | | | | | | | | Jennyfer Calvert | | | | | | Carmine PARTY PLAN DEALER [address] | | | | | | [place] [address] | | | | | | [phone] | | | | | | | | +--------+ + + + + | 11/26/ | Appointment | Infusion Therapy | Yancy Clifford MD | | | 2018 | | | [address] | | | | | | [place] | | | | | | [address] | | | | | | | | +--------+ + + + + | 12/17/ | Appointment | Infusion Therapy | Yancy Clifford MD | | | 2019 | | | [address] | | | | | | [place] | | | | | | [address] | | | | | | | | +--------+ + + + + | 12/17/ | Office | Oncology | Yancy Clifford MD | | | 2019 | Visit | | [address] | | | | | | [place] | | | | | | [address] | | | | | | | | +--------+ + + + + | 12/17/ | Appointment | Infusion Therapy | Yancy Clifford MD | | | 2020 | | | [address] | | | | | | [place] | | | | | | [address] | | | | | | | [...]
--- OUTSIDE RECORDS SUMMARY | ~2019-11-22 | XMS | Encounter Summary ---
Demographics + + + | Address | [address] | | | [place] [address] | + + + | Home Phone | | + + + | Preferred Language | Unknown | + + + | Marital Status | | + + + | Nondenominational Affiliation | Unknown | + + + | Race | Unknown | + + + | Ethnic Group | Unknown | + + + Author + + + | Author | [facility] | | | and [place] | + + + | Organization | [facility] | | | [...] | | | | [place] [address] | | + + + + + | Emory Larios | ECON | Unknown | | + + + + + Care Team Providers + +------+ + | Care Leather Coverer Name | Role | Phone | + +------+ + PCP | Unavailable | + +------+ + Encounter Details +--------+ + + + + | Date | Type | Department | Care Team | Description | +--------+ + + + + | 07/08/ | Hospital | [facility] | Conversion | Chronic deep vein | | 2018 | Encounter | [facility] | Transaction, | thrombosis (DVT) of | | | | ULTRASOUND [address] | Provider Unknown | other vein of right | | | | [address] | [phone] | upper extremity | | | | [place], [place] | | (HCC); 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 docume nted in [...] [place] | | | | | | [address] | | | | | | | | +--------+ + + + + | 11/26/ | Office | Oncology | Yancy Clifford MD | | | 2018 | Visit | | [address] | | | | | | [place] | | | | | | [address] | | | | | | | | | | | | Jennyfer Calvert | | | | | | CIERRA Lou [address] | | | | | | [address] | | | | | | [place] [address] | | | | | | [phone] | | | | | | | | +--------+ + + + + | 11/26/ | Appointment | Infusion Therapy | Yancy Clifford MD | | | 2018 | | | [address] | | | | | | [place] | | | | | | [address] | | | | | | | | +--------+ + + + + | 12/17/ | Appointment | Infusion Therapy | Yancy Clifford MD | | | 2019 | | | [address] | | | | | | [place] | | | | | | [address] | | | | | | | | +--------+ + + + + | 12/17/ | Office | Oncology | Yancy Clifford MD | | | 2019 | Visit | | [address] | | | | | | [place] | | | | | | [address] | | | | | | | | +--------+ + + + + | 12/17/ | Appointment | Infusion Therapy | Yancy Clifford MD | | | 2019 | | | [address] | | | | | | [place] | | | | | | [address] | | | | | | | [...]
--- OUTSIDE RECORDS SUMMARY | ~2019-11-22 | XMS | Encounter Summary ---
Demographics + + + | Address | [address] | | | [place] [address] | + + + | Home Phone | | + + + | Preferred Language | Unknown | + + + | Marital Status | | + + + | Gnosticist Affiliation | Unknown | + + + [...] | | | | [place] [address] | | + + + + + | Emory Larios | ECON | Unknown | | + + + + + Care Team Providers + +------+ + | Care Missile Tracking Technician Name | Role | Phone | [...] Provider Unknown | | | | | [place], [place] | [phone] | | | | | [address] | | | | | | [phone] | | | +--------+ + + + [...] [place] | | | | | | [phone] | | | | | | | | +--------+ + + + + | 11/26/ | Office | Oncology | Yancy Clifford MD | | | 2018 | Visit | | [address] | | | | | | [place] | | | | | | [address] | | | | | | | | | | | | Jennyfer Calvert | | | | | | [place]ER[place] [address] | | | | | | [address] | | | | | | [place] [address] | | | | | | [phone] | | | | | | | | +--------+ + + + + | 11/26/ | Appointment | Infusion Therapy | Yancy Clifford MD | | | 2018 | | | [address] | | | | | | [place] | | | | | | [address] | | | | | | | | +--------+ + + + + | 12/17/ | Appointment | Infusion Therapy | Yancy Clifford MD | | | 2019 | | | [address] | | | | | | [place] | | | | | | [address] | | | | | | | | +--------+ + + + + | 12/17/ | Office | Oncology | Yancy Clifford MD | | | 2019 | Visit | | [address] | | | | | | [place] | | | | | | [address] | | | | | | | | +--------+ + + + + | 12/17/ | Appointment | Infusion Therapy | Yancy Clifford MD | | | 2019 | | | [address] | | | | | | [place] | | | | | | [address] | | | | | | | | +--------+ + + + + documented as of this encounter Visit Diagnoses Not on filedocumented in this encounter"
--- OUTSIDE RECORDS SUMMARY | ~2019-11-22 | XMS | Encounter Summary ---
Demographics + + + | Address | [address] | | | [place] [address] | + + + | Home Phone [...] | | | | [place] [address] | | + + + + + | Emory Larios | ECON | Unknown | | + + + + + Care Team Providers + +------+ + | Care Retail Event And Sales Assistant Name | Role | Phone | + +------+ + PCP | Unavailable | + +------+ + Encounter Details +--------+ + + + + | Date | Type | Department | Care Team | Description | +--------+ + + + + | 06/14/ | Hospital | [facility] IP | Conversion | Back pain, | | 2015 | Encounter | CONVERSION DEP [address] | Transaction, | unspecified location | | | | [address] | Provider Unknown | | | | | [place], [place] | | | | | | [phone] | (Fax) | | | | | [...] [place] | | | | | | [phone] | | | | | | | | +--------+ + + + + | 11/26/ | Office | Oncology | Yancy Clifford MD | | | 2018 | Visit | | [address] | | | | | | [place] | | | | | | [phone] | | | | | | | | | | | | Jennyfer Calvert | | | | | | [place] Lou [address] | | | | | | [address] | | | | | | [place] [address] | | | | | | [phone] | | | | | | | | +--------+ + + + + | 11/26/ | Appointment | Infusion Therapy | Yancy Clifford MD | | | 2018 | | | [address] | | | | | | [place] | | | | | | [address] | | | | | | | | +--------+ + + + + | 12/17/ | Appointment | Infusion Therapy | Yancy Clifford MD | | | 2019 | | | [address] | | | | | | [place] | | | | | | [address] | | | | | | | | +--------+ + + + + | 12/17/ | Office | Oncology | Yancy Clifford MD | | | 2019 | Visit | | [address] | | | | | | [place] | | | | | | [address] | | | | | | | | +--------+ + + + + | 12/17/ | Appointment | Infusion Therapy | Yancy Clifford MD | | | 2020 | | | [address] | | | | | | [place] | | | | | | [address] | | | | | | | [...]
--- OUTSIDE RECORDS SUMMARY | ~2019-11-22 | XMS | Encounter Summary ---
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 [address] | [place], [place] | | | | | left ovary | [address] | [address] | | | | | (HCC) | AVE | Phone: | | | | | Procedures | [place], | [phone] | | | | | CT Chest | [place] [address] | Fax: | | | | | Abdomen | Phone: | [phone] | | | | | Pelvis w | [phone] | | | | | | Contrast | Fax: | | | | | | | [phone] | | +--------+--------+ + + + + Reason for Visit Diagnostic/Screening (Urgent) +--------+--------+ + + + + | Status | Reason | Specialty | Diagnoses / | Referred By | Referred To | | | | | Procedures | Contact | Contact | +--------+--------+ + + + + | Closed | | Radiology | Diagnoses | [place], | [facility] [address] | | | | | Malignant | Jennyfer Lou, | [address] | | | | | neoplasm of | 8[employer] GR[employer] TE[employer]ER [address] | [place], [place] | | | | | left ovary | [address] | [address] | | | | | (HCC) | AVE | Phone: | | | | | Procedures | [place], | [phone] | | | | | CT Chest | [place] [address] | Fax: | | | | | Abdomen | Phone: | [phone] | | | | | Pelvis w | [phone] | | | | | | Contrast | Fax: | | | | | | | [phone] | | +--------+--------+ + + + + Encounter Details +--------+ + + + + | Date | Type | Department | Care Team | Description | +--------+ + + + + | 10/16/ | Hospital | [facility] | Jennyfer Calvert | Malignant neoplasm | | 2019 | Encounter | [facility] [address] | M, 8[employer] 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[employer] 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 [address] | of left ovary (HCC) | | | | [address] | [address] | | | | | [place], [place] | [place] [address] | | | | | [address] | [phone] | | | | | [phone] | | | +--------+ + + + [...] [place] | | | | | | [phone] | | | | | | | | +--------+ + + + + | 11/26/ | Office | Oncology | Yancy Clifford MD | | | 2018 | Visit | | [address] | | | | | | [place] | | | | | | [phone] | | | | | | | | | | | | Jennyfer Calvert | | | | | | [address] | | | | | | [address] | | | | | | [place] [address] | | | | | | [phone] | | | | | | | | +--------+ + + + + | 11/26/ | Appointment | Infusion Therapy | Yancy Clifford MD | | | 2018 | | | [address] | | | | | | [place] | | | | | | [address] | | | | | | | | +--------+ + + + + | 12/17/ | Appointment | Infusion Therapy | Yancy Clifford MD | | | 2019 | | | [address] | | | | | | [place] | | | | | | [address] | | | | | | | | +--------+ + + + + | 12/17/ | Office | Oncology | Yancy Clifford MD | | | 2019 | Visit | | [address] | | | | | | [place] | | | | | | [address] | | | | | | | | +--------+ + + + + | 12/17/ | Appointment | Infusion Therapy | Yancy Clifford MD | | | 2020 | | | [address] | | | | | | [place] | | | | | | [address] | | | | | | | [...]
--- OUTSIDE RECORDS SUMMARY | ~2019-11-22 | XMS | Encounter Summary ---
Demographics + + + | Address | [address] | | | [place] [address] | + + + | Home Phone [...] | | | | [place] [address] | | + + + + + | Emory Larios | ECON | Unknown | | + + + + + Care Team Providers + +------+ + | Care Pediatric Nephrologist Name | Role | Phone | + +------+ + | Shannan Deng | PCP | | + +------+ + Encounter Details +--------+ + + + + | Date | Type | Department | Care Team | Description | +--------+ + + + + | 08/13/ | Hospital | [facility] | Yancy Clifford MD | 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) | | | | SERVICES [address] | [place] | (Primary Dx) | | | | [address] [place] | [id number] | | | | | [address] [place] | | | | | | [address] | Sushma Marquis | | | | | [phone] | Tiana RN | | +--------+ + [...] | | | 2018 | | | [address] | | | | | | [place] | | | | | | [address] | | | | | | | | +--------+ + + + + | 11/26/ | Office | Oncology | Yancy Clifford MD | | | 2018 | Visit | | [address] | | | | | | [place] | | | | | | [address] | | | | | | | | | | | | Jennyfer Calvert | | | | | | [address] | | | | | | [address] | | | | | | [place] [address] | | | | | | [phone] | | | | | | | | +--------+ + + + + | 11/26/ | Appointment | Infusion Therapy | Yancy Clifford MD | | | 2018 | | | [address] | | | | | | [place] | | | | | | [address] | | | | | | | | +--------+ + + + + | 12/17/ | Appointment | Infusion Therapy | Yancy Clifford MD | | | 2019 | | | [address] | | | | | | [place] | | | | | | [address] | | | | | | | | +--------+ + + + + | 12/17/ | Office | Oncology | Yancy Clifford MD | | | 2019 | Visit | | [address] | | | | | | [place] | | | | | | [address] | | | | | | | | +--------+ + + + + | 12/17/ | Appointment | Infusion Therapy | Yancy Clifford MD | | | 2019 | | | [address] | | | | | | [place] | | | | | | [address] | | | | | | | [...] [address] | | | | | | [address];[place] [address] | | | | | | | [...] | [address] [facility] | [place] [address] | [phone] | | [facility] | Blvd. | | | | LABORATORY | | | | + + + + + | REFERENCE LAB | [address] [facility] | [place] [address] | | | [facility] | Blvd. | [...] | | LABORATORY | | | | [address] | | | | + + + + + + + + | Specimen | + + | Blood | + + + + + + + | Performing | Address | City/State/Zipcode | Phone Number | | Organization | | | | + + + + + | REFERENCE LAB | [address] [place] [address] | [place] [address] | [phone] | | [facility] | Blvd. | | | | LABORATORY | | | | + + + + + | REFERENCE LAB | [address] [facility] | [place] [address] | | | [facility] | Blvd. | [...] - 1.030 | REFERENCE | | | [place], | | | LAB | | | [...] | | | | Performed at [facility], [address] | | LAB | | | | [address] | | [facility] | | | | [address], [place] | | LABORATORY | | | | [address] | | | | + + + + + + + + | Specimen | + + | Urine | + + + + + + + | Performing | Address | City/State/Zipcode | Phone Number | | Organization | | | | + + + + + | REFERENCE LAB | [address] [place] [address] | [place] [address] | [phone] | | [facility] | Blvd. | | | | LABORATORY | | | | + + + + + | REFERENCE LAB | [address] [place] [address] | [place] [address] | | | [facility] | Blvd. | [...] [facility] | | | | Blvd;[place] [address] | | LABORATORY | | + + + + + + | K | 4.3Comment: Testing | 3.5 - 4.9 | REFERENCE | | | | performed at [facility];[address] | mmol/L | LAB | | | | [address] | | [facility] | | | | Blvd;[place] [address] | | LABORATORY | | + + + + + + | Cl | 105Comment: Testing | 99 - 109 mmol/L | REFERENCE | | | | performed at [facility];[address] | | LAB | | | | [address] | | [facility] | | | | Blvd;[place] [address] | | LABORATORY | | + + + + + + | CO2 | 26Comment: Testing | 23 - 32 mmol/L | REFERENCE | | | | Performed at [facility], [address] | | LAB | | | | [address] | | [facility] | | | | [address], [place] | | LABORATORY | | | | [address] | | | | + + + + + + | Anion Gap | 11Comment: Testing | 5 - 20 mmol/L | REFERENCE | | | | performed at [facility];[address] | | LAB | | | | [address] | | [facility] | | | | Blvd;[place] [address] | | LABORATORY | | + + [...] | | | | | | [address], [place] | | | | | | [address] | | | | + + + + + + + + | Specimen | + + | Blood | + + + + + + + | Performing | Address | City/State/Zipcode | Phone Number | | Organization | | | | + + + + + | REFERENCE LAB | [address] [place] [address] | [place] [address] | [phone] | | [facility] | Blvd. | | | | LABORATORY | | | | + + + + + | REFERENCE LAB | [address] [place] [address] | [place] [address] | | | [facility] | Blvd. | [...] | | LABORATORY | | | | [address] | | | | + + + + + + + + | Specimen | + + | Blood | + + + + + + + | Performing | Address | City/State/Zipcode | Phone Number | | Organization | | | | + + + + + | REFERENCE LAB | [address] [facility] | [place] [address] | [phone] | | [facility] | Blvd. | | | | LABORATORY | | | | + + + + + | REFERENCE LAB | [address] [facility] | [place] [address] | | | [facility] | Blvd. | | | | [...] [facility] | | | | Blvd;[place] [address] | | LABORATORY | | + + + + + + | K | 4.1Comment: Testing | 3.5 - 4.9 | REFERENCE | | | | performed at [facility];[address] | mmol/L | LAB | | | | [place] | | [facility] | | | | Blvd;[place] [address] | | LABORATORY | | + + + + + + | Cl | 104Comment: Testing | 99 - 109 mmol/L | REFERENCE | | | | performed at [facility];[address] | | LAB | | | | [place] | | [facility] | | | | Blvd;[place] [address] | | LABORATORY | | + + + + + + | CO2 | 26Comment: Testing | 23 - 32 mmol/L | REFERENCE | | | | Performed at [facility], [address] | | LAB | | | | [address] | | [facility] | | | | [address], [place] | | LABORATORY | | | | [address] | | | | + + + + + + | Anion Gap | 10Comment: Testing | 5 - 20 mmol/L | REFERENCE | | | | performed at [facility];[address] | | LAB | | | | [address] | | [facility] | | | | Blvd;[place] [address] | | LABORATORY | | + + [...] | | | | | Performed at [facility], [address] | | | | | | [address] | | | | | | [address], [place] | | | | | | [address] | | | | + + + + + + + + | Specimen | + + | Blood | + + + + + + + | Performing | Address | City/State/Zipcode | Phone Number | | Organization | | | | + + + + + | REFERENCE LAB | [address] [facility] | [place] [address] | [phone] | | [facility] | Blvd. | | | | LABORATORY | | | | + + + + + | REFERENCE LAB | [address] [facility] | [place] [address] | | | [facility] | Blvd. | [...] | | LABORATORY | | | | [address] | | | | + + + + + + + + | Specimen | + + | Blood | + + + + + + + | Performing | Address | City/State/Zipcode | Phone Number | | Organization | | | | + + + + + | REFERENCE LAB | [address] [facility] | [place] [address] | [phone] | | [facility] | Blvd. | | | | LABORATORY | | | | + + + + + | REFERENCE LAB | [address] [facility] | [place] [address] | | | [facility] | Blvd. | [...] [place] | | | | | | [address] | | | | + + + + + + + + | Specimen | + + | Blood | + + + + + + + | Performing | Address | City/State/Zipcode | Phone Number | | Organization | | | | + + + + + | REFERENCE LAB | [address] [place] [address] | [place] [address] | [phone] | | [facility] | Blvd. | | | | LABORATORY | | | | + + + + + | REFERENCE LAB | [address] [facility] | [place] [address] | | | [facility] | Blvd. | [...] | | | Morphology | Performed at [facility], [address] | | LAB | | | | [address] | | [facility] | | | | [address], [place] | | LABORATORY | | | | [address] | | | | + + + + + + + + | Specimen | + + | Blood | + + + + + + + | Performing | Address | City/State/Zipcode | Phone Number | | Organization | | | | + + + + + | REFERENCE LAB | [address] [facility] | [place] [address] | [phone] | | [facility] | Blvd. | | | | LABORATORY | | | | + + + + + | REFERENCE LAB | [address] [facility] | [place] [address] | | | [facility] | Blvd. | [...] [place] | | | | | | [address] | | | | + + + + + + + + | Specimen | + + | | + + + + + + + | Performing | Address | City/State/Zipcode | Phone Number | | Organization | | | | + + + + + | REFERENCE LAB | [address] [place], [place] [address] | [place] [address] | [phone] | | [facility] | Blvd. | | | | LABORATORY | | | | + + + + + | REFERENCE LAB | [address] [place], [place] [address] | [place] [address] | | | [facility] | Blvd. | [...] | | | | performed at [facility];[address] | | [facility] | | | | [facility] | | LABORATORY | | | | Blvd;[place] [address] | | | | | | | | | | + + + + + + + + | Specimen | + + | | + + + + + + + | Performing | Address | City/State/Zipcode | Phone Number | | Organization | | | | + + + + + | REFERENCE LAB | [address] [place] [address] | [place] [address] | [phone] | | [facility] | Blvd. | | | | LABORATORY | | | | + + + + + | REFERENCE LAB | [address] [place] [address] | [place] [address] | | | [facility] | Blvd. | [...] | | urine | performed at [facility];[address] | | [facility] | | | | [facility] | | LABORATORY | | | | Blvd;[place] [address] | | | | | | | | | | + + + + + + + + | Specimen | + + | | + + + + + + + | Performing | Address | City/State/Zipcode | Phone Number | | Organization | | | | + + + + + | REFERENCE LAB | [address] [place] [address] | [place] [address] | [phone] | | [facility] | Blvd. | | | | LABORATORY | | | | + + + + + | REFERENCE LAB | [address] [place] [address] | [place] [address] | | | [facility] | Blvd. | [...] - 1.030 | REFERENCE | | | [place], | | | LAB | | | [...] | | LABORATORY | | | | [address] | | | | + + + + + + + + | Specimen | + + | | + + + + + + + | Performing | Address | City/State/Zipcode | Phone Number | | Organization | | | | + + + + + | REFERENCE LAB | [address] [place] [address] | [place] [address] | [phone] | | [facility] | Blvd. | | | | LABORATORY | | | | + + + + + | REFERENCE LAB | [address] [place] [address] | [place] [address] | | | [facility] | Blvd. | [...] | | RATIO,URINE | performed at [facility];[address] | | LAB | | | | [place] | | [facility] | | | | Blvd;[place] [address] | | LABORATORY | | + + + + + + + + | Specimen | + + | | + + + + + + + | Performing | Address | City/State/Zipcode | Phone Number | | Organization | | | | + + + + + | REFERENCE LAB | [address] [place] [address] | [place] [address] | [phone] | | [facility] | Blvd. | | | | LABORATORY | | | | + + + + + | REFERENCE LAB | [address] [place] [address] | [place] [address] | | | [facility] | Blvd. | [...] | | | | | Performed at [facility], [address] | | | | | | [address] | | | | | | [address], [place] | | | | | | [address] | | | | + + + + + + + + | Specimen | + + | | + + + + + + + | Performing | Address | City/State/Zipcode | Phone Number | | Organization | | | | + + + + + | REFERENCE LAB | [address] [facility] | [place] [address] | [phone] | | [facility] | Blvd. | | | | LABORATORY | | | | + + + + + | REFERENCE LAB | [address] [facility] | [place] [address] | | | [facility] | Blvd. | [...] [place] | | | | | | [address] | | | | + + + + + + + + | Specimen | + + | | + + + + + + + | Performing | Address | City/State/Zipcode | Phone Number | | Organization | | | | + + + + + | REFERENCE LAB | [address] [place], [place] [address] | [place] [address] | [phone] | | [facility] | Blvd. | | | | LABORATORY | | | | + + + + + | REFERENCE LAB | [address] [place], [place] [address] | [place] [address] | | | [facility] | Blvd. | [...]
--- OUTSIDE RECORDS SUMMARY | ~2019-11-22 | XMS | Encounter Summary ---
Demographics + + + | Address | [address] | | | [place] [address] | + + + | Home Phone [...] | | | | [place] [address] | | + + + + + | Emory Larios | ECON | Unknown | | + + + + + Care Team Providers + +------+ + | Care Stock Room Manager Name | Role | Phone | + +------+ + | Shannan Deng | PCP | | + +------+ + Encounter Details +--------+ + + + + | Date | Type | Department | Care Team | Description | +--------+ + + + + | 07/22/ | Orders Only | [facility] | Sushma Marquis | Malignant neoplasm | | 2019 | | INFUSION SUPPORT | A, RN | of left ovary (HCC) | | | | SERVICES [address] | | (Primary Dx) | | | | [address] | | | | | | [address] [place] | | | | | | [address] | | | | | | [phone] | | | +--------+ + + + [...] [place] | | | | | | [id number] | | | | | | | | +--------+ + + + + | 11/26/ | Office | Oncology | Yancy Clifford MD | | | 2018 | Visit | | [address] | | | | | | [place] | | | | | | [address] | | | | | | | | | | | | Jennyfer Calvert | | | | | | [place] [address] | | | | | | [address] | | | | | | [place] [address] | | | | | | [phone] | | | | | | | | +--------+ + + + + | 11/26/ | Appointment | Infusion Therapy | Yancy Clifford MD | | | 2018 | | | [address] | | | | | | [place] | | | | | | [address] | | | | | | | | +--------+ + + + + | 12/17/ | Appointment | Infusion Therapy | Yancy Clifford MD | | | 2019 | | | [address] | | | | | | [place] | | | | | | [address] | | | | | | | | +--------+ + + + + | 12/17/ | Office | Oncology | Yancy Clifford MD | | | 2019 | Visit | | [address] | | | | | | [place] | | | | | | [address] | | | | | | | | +--------+ + + + + | 12/17/ | Appointment | Infusion Therapy | Yancy Clifford MD | | | 2020 | | | [address] | | | | | | [place] | | | | | | [address] | | | | | | | | +--------+ + + + + documented as of this encounter Visit Diagnoses + + | Diagnosis | + + | 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
--- OUTSIDE RECORDS SUMMARY | ~2019-11-22 | XMS | Encounter Summary ---
Demographics + + + | Address | [address] | | | [place] [address] | + + + | Home Phone [...] | | | | [place] [address] | | + + + + + | Emory Larios | ECON | Unknown | | + + + + + Care Team Providers + +------+ + | Care Community Planning Technician Name | Role | Phone | [...] Provider Unknown | | | | | [place], [place] | [phone] | | | | | [address] | | | | | | [phone] | | | +--------+ + + + [...] [place] | | | | | | [phone] | | | | | | | | +--------+ + + + + | 11/26/ | Office | Oncology | Yancy Clifford MD | | | 2018 | Visit | | [address] | | | | | | [place] | | | | | | [phone] | | | | | | | | | | | | Jennyfer Calvert | | | | | | CIERRA Lou [address] | | | [address] | | | | | | [place] [id number] | | | | | | [phone] | | | | | | | | +--------+ + + + + | 11/26/ | Appointment | Infusion Therapy | Yancy Clifford MD | | | 2018 | | | [address] | | | | | | [place] | | | | | | [address] | | | | | | | | +--------+ + + + + | 12/17/ | Appointment | Infusion Therapy | Yancy Clifford MD | | | 2019 | | | [address] | | | | | | [place] | | | | | | [address] | | | | | | | | +--------+ + + + + | 12/17/ | Office | Oncology | Yancy Clifford MD | | | 2019 | Visit | | [address] | | | | | | [place] | | | | | | [address] | | | | | | | | +--------+ + + + + | 12/17/ | Appointment | Infusion Therapy | Yancy Clifford MD | | | 2019 | | | [address] | | | | | | [place] | | | | | | [address] | | | | | | | | +--------+ + + + + documented as of this encounter Visit Diagnoses Not on filedocumented in this encounter"
--- OUTSIDE RECORDS SUMMARY | ~2019-11-22 | XMS | Encounter Summary ---
Demographics + + + | Address | [address] [facility] [address] | | | [place] [address] | + + + | Home Phone [...] | | | | [place] [address] | | + + + + + | Emory Larios | ECON | Unknown | | + + + + + Care Team Providers + +------+ + | Care Dentures Lab Technician Name | Role | Phone | + +------+ + | Shannan Deng | PCP | | + +------+ + Encounter Details +--------+ + + + + | Date | Type | Department | Care Team | Description | +--------+ + + + + | 07/05/ | Orders Only | [facility] | Lizzette Yumiko, | | | 2019 | | HEMATOLOGY AND | RN | | | | | ONCOLOGY [address] | | | | | [address] | | | | | | [place] | | | | | | [address] | | | | | | [phone] | | | +--------+ + + + [...] [place] | | | | | | [address] | | | | | | | | +--------+ + + + + | 11/26/ | Office | Oncology | Yancy Clifford MD | | | 2018 | Visit | | [address] | | | | | | [place] | | | | | | [address] | | | | | | | | | | | | Jennyfer Calvert | | | | | | CIERRA Lou [address] | | | | | | [address] | | | | | | [place] [address] | | | | | | [phone] | | | | | | | | +--------+ + + + + | 11/26/ | Appointment | Infusion Therapy | Yancy Clifford MD | | | 2018 | | | [address] | | | | | | [place] | | | | | | [address] | | | | | | | | +--------+ + + + + | 12/17/ | Appointment | Infusion Therapy | Yancy Clifford MD | | | 2019 | | | [address] | | | | | | [place] | | | | | | [address] | | | | | | | | +--------+ + + + + | 12/17/ | Office | Oncology | Yancy Clifford MD | | | 2019 | Visit | | [address] | | | | | | [place] | | | | | | [address] | | | | | | | | +--------+ + + + + | 12/17/ | Appointment | Infusion Therapy | Yancy Clifford MD | | | 2019 | | | [address] | | | | | | [place] | | | | | | [address] | | | | | | | | +--------+ + + + + documented as of this encounter Visit Diagnoses Not on filedocumented in this encounter"
--- OUTSIDE RECORDS SUMMARY | ~2019-11-22 | XMS | Encounter Summary ---
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 | | | | [phone] | | (HCC); Pleural | | | [...] 11/26/ | Appointment | Infusion Therapy | aYncy Clifford MD | | | 2018 | | | [address] | | | | | | [place] | | | | | | [address] | | | | | | | | +--------+ + + + + | 11/26/ | Office | Oncology | Yancy Clifford MD | | | 2018 | Visit | | [address] | | | | | | [place] | | | | | | [address] | | | | | | | | | | | | Jennyfer Calevrt | | | | | | CIERRA Lou [address] | | | | | | [address] | | | | | | [place] [address] | | | | | | [phone] | | | | | | | | +--------+ + + + + | 11/26/ | Appointment | Infusion Therapy | Yancy Clifford MD | | | 2018 | | | [address] | | | | | | [place] | | | | | | [address] | | | | | | | | +--------+ + + + + | 12/17/ | Appointment | Infusion Therapy | Yancy Clifford MD | | | 2019 | | | [address] | | | | | | [place] | | | | | | [address] | | | | | | | | +--------+ + + + + | 12/17/ | Office | Oncology | Yancy Clifford MD | | | 2019 | Visit | | [address] | | | | | | [place] | | | | | | [address] | | | | | | | | +--------+ + + + + | 12/17/ | Appointment | Infusion Therapy | Yancy Clifford MD | | | 2019 | | | [address] | | | | | | [place] | | | | | | [address] | | | | | | | [...] REFERENCE | | | | [facility] [employer] [facility] | | LAB | | | | [...] | | | | | | TCL;[address] [facility] | | | | | | [facility];[place] [address] | | | | | | | | | | + + + + + + + + | Specimen | + + | Blood | + + + + + + + | Performing | Address | City/State/Zipcode | Phone Number | | Organization | | | | + + + + + | REFERENCE LAB | [address] [place] [address] | [place] [address] | [phone] | | [facility] | Blvd. | | | | LABORATORY | | | | + + + + + | REFERENCE LAB | [address] [place] [address] | [place] [address] | | | [facility] | Blvd. | [...]
[2019-11-22] MEDS ORDERED: AMOXICILLIN500 MG PO (13:57)
== END 2019-11-22 14:03 | disposition home or self-care (01) ==
LOC: ED 13:38
DX: J06.9 Acute upper respiratory infection, unspecified (principal); F17.200 Nicotine dependence, unspecified, uncomplicated; Z88.5 Allergy status to narcotic agent; Z79.899 Other long term (current) drug therapy
CPT/HCPCS: 99282

== ENCOUNTER 2019-12-08 13:42 | Emergency (ER) | payer MEDICARE, OTHER ==
[~2019-12-08] VITALS: Ht 162.6 cm; Wt 81.7 kg
--- OUTSIDE RECORDS SUMMARY | ~2019-12-08 | XMS | Encounter Summary ---
Demographics + + + | Address | [address] [facility] [address] | | | [place] [address] | + + + | Home Phone | | + + + | Preferred Language | Unknown | + + + | Marital Status | | + + + | Mu-Ism Affiliation | Unknown | + + + | Race | Unknown | + + + | Ethnic Group | Unknown | + + + Author + + + | Author | [facility] | | | and [place] | + + + | Organization | [facility] | | | and [place] | + + + | Address | Unknown | + + + | Phone | Unavailable | + + + Support + + + + + | Name | Relationship | Address | Phone | + + + + + | Jared Easonrick | ECON | [address] | | | | | [place] [address] | | + + + + + | Emory Larios | ECON | Unknown | | + + + + + Care Team Providers + +------+ + | Care Linen Folder Name | Role | Phone | + +------+ + | Shannan Deng | PCP | | + +------+ + Encounter Details +--------+ + + + + | Date | Type | Department | Care Team | Description | +--------+ + + + + | 12/25/ | Orders Only | [facility] | Yancy Clifford MD | | | 2019 | | HEMATOLOGY AND | [address] | | | | | ONCOLOGY [address] | [place] | | | | | [address] | [address] | | | | | [place] | | | | | | [address] | | | | | | [phone] | | | +--------+ + + + + Social History + +-------+ +--------+------+ | Tobacco Use | Types | Packs/Day | Years | Date | | | | | Used | | + +-------+ +--------+------+ | Never Assessed | | | | | + +-------+ +--------+------+ + + + | Sex Assigned at | Date Recorded | | | | + + + | Not on file | | + + + + + + + | Job Start Date | Occupation | Industry | + + + + | Not on file | Not on file | Not on file | + + + + + + + + | Travel History | Travel Start | Travel End | + + + + + + | No recent travel history available. | + + documented as of this encounter Plan of Treatment +--------+ + + + + | Date | Type | Specialty | Care Team | Description | +--------+ + + + + | 12/17/ | Appointment | Infusion Therapy | Yancy Clifford MD | | | 2019 | | | [address] | | | | | | [place] | | | | | | [address] | | | | | | | | +--------+ + + + + | 12/17/ | Office | Oncology | Yancy Clifford MD | | | 2019 | Visit | | [address] | | | | | | [place] | | | | | | [address] | | | | | | | | +--------+ + + + + | 12/17/ | Appointment | Infusion Therapy | Yancy Clifford MD | | | 2019 | | | [address] | | | | | | [place] | | | | | | [address] | | | | | | | | +--------+ + + + + | 01/07/ | Appointment | Infusion Therapy | Yancy Clifford MD | | | 2019 | | | [address] | | | | | | [place] | | | | | | [address] | | | | | | | | +--------+ + + + + | 01/07/ | Office | Oncology | Yancy Clifford MD | | | 2019 | Visit | | [address] | | | | | | [place] | | | | | | [address] | | | | | | | | +--------+ + + + + | 01/07/ | Appointment | Infusion Therapy | Yancy Clifford MD | | | 2019 | | | [address] | | | | | | [place] | | | | | | [address] | | | | | | | | +--------+ + + + + documented as of this encounter Visit Diagnoses Not on filedocumented in this encounter"
--- OUTSIDE RECORDS SUMMARY | ~2019-12-08 | XMS | Encounter Summary ---
Demographics + + + | Address | [address] [address] [address] | | | [place] [address] | + + + | Home Phone | | + + + | Preferred Language | Unknown | + + + | Marital Status | | + + + | Worship Affiliation | Unknown | + + + | Race | Unknown | + + + | Ethnic Group | Unknown | + + + Author + + + | Author | [facility] | | | and [place] | + + + | Organization | [facility] | | | [...] | | | | | [place] [address] | | + + + + + | Emory Larios | ECON | Unknown | | + + + + + Care Team Providers + +------+ + | Care Manager Of Pmo Name | Role | Phone | + +------+ + PCP | Unavailable | + +------+ + Encounter Details +--------+ + + + + | Date | Type | Department | Care Team | Description | +--------+ + + + + | 06/11/ | Orders Only | [facility] | Yancy Clifford MD | | | 2018 | | INFUSION SUPPORT | [address] | | | | | SERVICES [address] | [place], [place] | | | | | [address] [place] | [address] | | | | | [address] [place] | | | | | | [address] | | | | | | [phone] | | | +--------+ + + + [...] Progress Notes Conversion Transaction, Provider Unknown - 06/11/2019 2:30 PM PDTFormatting of this note m ight be different from the original. Progress Notes by Sushma Mcfarlane RN at 06/11/19 4658 Author: Sushma Mcfarlane RN Service: (none) Author Type: Registered Nurse Filed: 06/11/19 1337 Encounter Date: 06/11/2019 Status: Signed Palletiser Operator: Sushma Mcfarlane RN (Registered Nurse) Port accessed for lab draw. Saline locked, left accessed for treatment. Urine sample cup p rovided. Ydomichele rajput in this encounter Plan of Treatment +--------+ [...] [place] | | | | | | [address] | | | | | | | | +--------+ + + + + | 12/17/ | Appointment | Infusion Therapy | Yancy Clifford MD | | | 2019 | | | [address] | | | | | | [place] | | | | | | [address] | | | | | | | | +--------+ + + + + | 01/07/ | Appointment | Infusion Therapy | Yancy Clifford MD | | | 2019 | | | [address] | | | | | | [place] | | | | | | [address] | | | | | | | | +--------+ + + + + | 01/07/ | Office | Oncology | Yancy Clifford MD | | | 2019 | Visit | | [address] | | | | | | [place] | | | | | | [address] | | | | | | | | +--------+ + + + + | 01/07/ | Appointment | Infusion Therapy | Yancy Clifford MD | | | 2019 | | | [address] | | | | | | [place] | | | | | | [address] | | | | | | | | +--------+ + + + + documented as of this encounter Procedures + +--------+ + + + | Procedure Name | Priori | Date/Time | Associated Diagnosis | Comments | | | ty | | | | + +--------+ + + + | URINALYSIS WITH | Routin | 06/11/2019 | | Results for this | | MICROSCOPIC IF | e | 2:05 PM | | procedure are in the | | INDICATED | | PDT | | results section. | + +--------+ + + + | URINALYSIS, | Routin | 06/11/2019 | | Results for this | | MICROSCOPIC ONLY | e | 2:05 PM | | procedure are in the | | | | PDT | | results section. | + +--------+ + + + documented in this encounter Results Urinalysis, Microscopic Only (06/11/2019 2:05 PM PDT) + + + + + + | Component | Value | Ref Range | Performed | Pathologist | | | | | At | Signature | + + + + + + | WBC, UA | NONE SEEN | 0 - 5 /[HPF] | EXTERNAL | | | | | | LAB | | + + + + + + | RBC, UA | 0-2 | 0 - 5 /[HPF] | EXTERNAL | | | | | | LAB | | + + + + + + | Epithelial | 16-25 | /[LPF] | EXTERNAL | | | Cells | | | LAB | | + + + + + + | Bacteria, | NONE SEEN | | EXTERNAL | | | UA [...] + + Urinalysis with Microscopic if Indicated (06/11/2019 2:05 PM PDT) + + + + + [...] - 1.030 | EXTERNAL | | | [place] | | | LAB | | + [...] | 5.0 | 5.0 - 8.0 | EXTERNAL | | | | | | LAB | | + + + + + + | Blood, | TRACE (A) | | EXTERNAL | | | Urine [...]
--- OUTSIDE RECORDS SUMMARY | ~2019-12-08 | XMS | Encounter Summary ---
Demographics + + + | Address | [address] [facility] [address] [address] | | | [place] [address] | + + + | Home Phone | | + + + | Preferred Language | Unknown | + + + | Marital Status | | + + + | Worship Affiliation | Unknown | + + + | Race | Unknown | + + + | Ethnic Group | Unknown | + + + Author + + + | Author | [facility] | | | and [place] | + + + | Organization | [facility] | | | [...] | | | | [place] [address] | | + + + + + | Emory Larios | EBENEZER | Unknown | | + + + + + Care Team Providers + +------+ + | Care Railroad Cook Name | Role | Phone | + +------+ + | Shannan Deng | PCP | | + +------+ + Reason for Visit Treatment/Therapy Plan (Routine) + +--------+ + + + + | Status | Reason | Specialty | Diagnoses / | Referred By | Referred To | | | | | Procedures | Contact | Contact | + +--------+ + + + + | Authorizatio | | Infusion | Diagnoses | Lanieo, | [facility] | | n not | | Therapy | Malignant | MD Yancy | Infusion | | Required | | | neoplasm of | [address] | | | | | left ovary | [address] | | | | | (HCC) | AVE | [place] | | | | | Asc[place], | [place], | [place] [address] | | | | | malignant | [place] [address] | Phone: | | | | | Procedures | Phone: | [phone] | | | | | [place] | [phone] | Fax: | | | | | BEVACIZUMAB | Fax: | [phone] | | | | | INJECTION, | [phone] | | | | | | 10 MG [id number] | | | | | | | - MS | | | | | | | BEVACIZUMAB | | | | | | | INJECTION, | | | | | | | 10 MG- | | | | | | | AVASTIN | | | + +--------+ + + + + Encounter Details +--------+ + + + + | Date | Type | Department | Care Team | Description | +--------+ + + + + | 08/13/ | Hospital | [facility] | Yancy Clifford MD | Malignant neoplasm | | 2019 | Encounter | HEMATOLOGY AND | [address] | of left ovary (HCC) | | | | ONCOLOGY INFUSIONS | [place] | (Primary Dx); | | | | [address] | [address] | Ascites, malignant | | | | [address]VE [place] | | | | | | [address] | | | | | | [phone] | | | +--------+ + + + [...] + + documented as of this encounter Discharge Instructions Patient Instructions Ros aMaria Reddy RN - 08/13/2019 11:46 AM PDT Bevacizumab injection Brand Name: Avastin What is this medicine? BEVACIZUMAB (be va SIZ patricia mab) is a monoclonal antibody. It is used to treat many types of cancer. How should I use this medicine? This medicine is for infusion into a vein. It is given by a health caregiver assisted living in a h ospital or clinic setting. Talk to your combine operator regarding the use of this medicine in children. Special care may be needed. What side effects may I notice from receiving this medicine? Side effects that you should report to your doctor or health caregiver assisted living as soon as p ossible: allergic reactions like skin rash, itching or hives, swelling of the face, lips, or tong ue chest pain or chest tightness chills coughing up blood high fever seizures severe constipation signs and symptoms of bleeding such as bloody or black, tarry stools; red or dark-brown urine; spitting up blood or brown material that looks like coffee grounds; red spots on the skin; unusual bruising or bleeding from the eye, gums, or nose signs and symptoms of a blood clot such as breathing problems; chest pain; severe, sudde n headache; pain, swelling, warmth in the leg signs and symptoms of a stroke like changes in vision; confusion; trouble speaking or un derstanding; severe headaches; sudden numbness or weakness of the face, arm or leg; trouble walking; dizziness; loss of balance or coordination stomach pain sweating swelling of legs or ankles vomiting weight gain Side effects that usually do not require medical attention (report to your doctor or health caregiver assisted living if they continue or are bothersome): back pain changes in taste decreased appetite dry skin nausea tiredness What may interact with this medicine? Interactions are not expected. What if I miss a dose? It is important not to miss your dose. Call your doctor or health caregiver assisted living if you are unable to keep an appointment. Where should I keep my medicine? This drug is given in a hospital or clinic and will not be stored at home. What should I tell my health care provider before I take this medicine? They need to know if you have any of these conditions: diabetes heart disease high blood pressure history of coughing up blood prior anthracycline chemotherapy (e.g., doxorubicin, daunorubicin, epirubicin) recent or ongoing radiation therapy recent or planning to have surgery stroke an unusual or allergic reaction to bevacizumab, hamster proteins, mouse proteins, other medicines, foods, dyes, or preservatives or trying to get breast-feeding What should I watch for while using this medicine? Your condition will be monitored carefully while you are receiving this medicine. You will need important blood work and urine testing done while you are taking this medicine. This medicine may increase your risk to bruise or bleed. Call your doctor or health care pr ofessional if you notice any unusual bleeding. This medicine should be started at least 28 days following major surgery and the site of th e surgery should be totally healed. Check with your doctor before scheduling dental work or surgery while you are receiving this treatment. Talk to your doctor if you have recently had surgery or if you have a wound that has not healed. Do not become while taking this medicine or for 6 months after stopping it. Women should inform their doctor if they wish to become or think they might be . There is a potential for serious side effects to an unborn child. Talk to your health care p rofessional or pharmacist for more information. Do not breast-feed an while taking th is medicine and for 6 months after the last dose. This medicine has caused ovarian failure in some women. This medicine may interfere with th e ability to have a child. You should talk to your doctor or health caregiver assisted living if you are concerned about your fertility. NOTE:This sheet is a summary. It may not cover all possible information. If you have questi ons about this medicine, talk to your doctor, pharmacist, or health care provider. Copyright 2019 Else[employer] documented in this encounter Medications at Time of Discharge [...] documented as of this encounter Progress Notes Rosa Maria Reddy RN - 08/13/2019 10:15 AM PDTPatient's orders/protocol verified. HT/WT/BSA c hecked and doses verified with second RN Juliana before releasing to RX. Patient cleared for t reatment of C 4 D 1 of every 21 day Bevacizumab after FORMS EXAMINER visit. Distress screening complet ed today at patients appointment with a 0 score. Copy of labs and calender given with next s cheduled appointment listed below. 09/03/2019 0745 - IVT LAB DRAW with CATRACHITO BOO SS LAB DRAW in [facility] INFUSION SUPPORT SERVICES 09/03/2019 0830 - Office Visit Extended appointment starts at 0845 with CIERRA Hartley in [facility] HEMATOLOGY AND ONCOLOGY 09/03/2019 0915 - Onc Infusion with [facility] 16 in [facility] HEMATOLOGY AND ONCOLOGY INFUSIONS documented in this encounter Plan of Treatment [...] [place] | | | | | | [id number] | | | | | | | | +--------+ + + + + | 12/17/ | Office | Oncology | Yancy Clifford MD | | | 2019 | Visit | | [address] | | | | | | [place] | | | | | | [address] | | | | | | | | +--------+ + + + + | 12/17/ | Appointment | Infusion Therapy | Yancy Clifford MD | | | 2019 | | | [address] | | | | | | [place] | | | | | | [address] | | | | | | | | +--------+ + + + + | 01/07/ | Appointment | Infusion Therapy | Yancy Clifford MD | | | 2019 | | | [address] | | | | | | [place] | | | | | | [address] | | | | | | | | +--------+ + + + + | 01/07/ | Office | Oncology | Yancy Clifford MD | | | 2020 | Visit | | [address] | | | | | | [place] | | | | | | [address] | | | | | | | | +--------+ + + + + | 01/07/ | Appointment | Infusion Therapy | Yancy Clifford MD | | | 2020 | | | [address] | | | | | | [place] | | | | | | [address] | | | | | | | | +--------+ + + + + documented as of this encounter Visit Diagnoses + + | Diagnosis | + + | 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 | + + | Ascites, malignant Malignant ascites | + + documented in this encounter Administered Medications + +---------+ + +-------+------+ | Medication Order | MAR | Action | Dose | Rate | Site | | | Action | Date | | | | + +---------+ + +-------+------+ | bevacizumab (AVASTIN) 1,300 mg | New Bag | 08/13/20 | 1,300 mg | 304 | | | in sodium chloride 0.9% 152 mL | | 19 10:53 | | mL/hr | | | infusion 1,300 mg (rounded from | | AM PDT | | | | | 1,282.5 mg = 15 mg/kg | | | | | | | 85.5 kg Treatment plan recorded | | | | | | | weight), Intravenous, Administer | | | | | | | over 30 Minutes, ONCE, Teresa | | | | | | | 08/13/19 at 1020, For 1 dose | | | | | | + +---------+ + +-------+------+ +---+---+ | | | +---+---+ + +-------+ +-------+---+-------+ | heparin 100 units/mL flush | Given | 08/13/20 | 500 | | Port | | injection 500 Units 500 Units (5 | | 19 11:41 | Units | | | | mL), Intracatheter, PRN, Line | | AM PDT | | | | | Care, Starting Teresa 08/13/19 at | | | | | | | 1003 | | | | | | + +-------+ +-------+---+-------+ +---+---+ | | | +---+---+ documented in this encounter"
--- OUTSIDE RECORDS SUMMARY | ~2019-12-08 | XMS | Encounter Summary ---
Demographics + + + | Address | [address] | | | [place] [address] | + + + | Home Phone | | + + + | Preferred Language | Unknown | + + + | Marital Status | | + + + | Tenriism Affiliation | Unknown | + + + | Race | Unknown | + + + | Ethnic Group | Unknown | + + + Author + + + | Author | [facility] | | | and [place] | + + + | Organization | [facility] | | | [...] | | | | | [place] [address] | | + + + + + | Emory Larios | ECON | Unknown | | + + + + + Care Team Providers + +------+ + | Care Programmer Developer Name | Role | Phone | + +------+ + PCP | Unavailable | + +------+ + Encounter Details +--------+ + + + + | Date | Type | Department | Care Team | Description | +--------+ + + + + | 07/02/ | Orders Only | [facility] | Yancy Clifford MD | | | 2018 | | INFUSION SUPPORT | [address] | | | | | SERVICES [address] | | | | | [address] [place] | [address] | | | | | [address] | | | | | | [address] | | | | | | [phone] | | | +--------+ + + + [...] 07/02/19 [id number] Encounter Date: 07/02/2019 Status: Signed Ballast Regulator Operator: Laila Jones RN (Registered Nurse) [place] [...] [place] | | | | | | [address] | | | | | | | | +--------+ + + + + | 12/17/ | Appointment | Infusion Therapy | Yancy Clifford MD | | | 2019 | | | [address] | | | | | | [place] | | | | | | [address] | | | | | | | | +--------+ + + + + | 01/07/ | Appointment | Infusion Therapy | Yancy Clifford MD | | | 2019 | | | [address] | | | | | | [place] | | | | | | [address] | | | | | | | | +--------+ + + + + | 01/07/ | Office | Oncology | Yancy Clifford MD | | | 2019 | Visit | | [address] | | | | | | [place] | | | | | | [address] | | | | | | | | +--------+ + + + + | 01/07/ | Appointment | Infusion Therapy | Yancy Clifford MD | | | 2019 | | | [address] | | | | | | [place] | | | | | | [address] | | | | | | | [...] - 1.030 | EXTERNAL | | | [facility] | | | LAB | | + [...]
--- OUTSIDE RECORDS SUMMARY | ~2019-12-08 | XMS | Encounter Summary ---
Demographics + + + | Address | [address] | | | [place] [address] | + + + | Home Phone | | + + + | Preferred Language | Unknown | + + + | Marital Status | | + + + | Mormonism Affiliation | Unknown | + + + | Race | Unknown | + + + | Ethnic Group | Unknown | + + + Author + + + | Author | [facility] | | | and [place] | + + + | Organization | [facility] | | [...] | | | | [place] [address] | | + + + + + | Emory Larios | ECON | Unknown | | + + + + + Care Team Providers + +------+ + | Care Quality Control Auditor Name | Role | Phone | + +------+ + | Shannan Deng | PCP | | + +------+ + Encounter Details +--------+ + + + + | Date | Type | Department | Care Team | Description | +--------+ + + + + | 11/27/ | Hospital | [facility] | Yancy Clifford MD | 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) | | | | SERVICES [address] | [place] | (Primary Dx) | | | | [address] [place] | [phone] | | | | | [address] [place] | | | | | | [address] | Anitha Mills | | | | | [phone] | Yulia, RN | | +--------+ + + + [...] + + + +---------+ + + | amoxicillin | | | 0 | 11/22/20 | | | (AMOXIL) 875 mg | | | | 19 | | | [...] mouth | 240 mL | 3 | 09/03/20 | | | mL solution | every 2 hours as | | | 19 | | | | needed. | | | | | + + + +---------+ + + | loratadine | Take 10 mg by mouth | | 0 | 04/16/20 | | | (CLARITIN) 10 mg | daily. | | | 19 | | | tablet | | | | | | + + + +---------+ + + | lovastatin | Take 20 mg by mouth | | 0 | | | | (MEVACOR) 20 mg | nightly. | | | | | | tablet | | | [...] documented as of this encounter Progress Notes Anitha Mills RN - 11/27/2019 9:45 AM PSTPort accessed with good blood return, sa mple sent to lab. documented in t his encounter Plan of Treatment +--------+ + + + + | Date | Type | Specialty | Care Team | Description | +--------+ + + + + | 12/17/ | Appointment | Infusion Therapy | Yancy Clifford MD | | | 2019 | | | [address] | | | | | | [place] | | | | | | [address] | | | | | | | | +--------+ + + + + | 12/17/ | Office | Oncology | Yancy Clifford MD | | | 2019 | Visit | | [address] | | | | | | [place] | | | | | | [address] | | | | | | | | +--------+ + + + + | 12/17/ | Appointment | Infusion Therapy | Yancy Clifford MD | | | 2019 | | | [address] | | | | | | [place] | | | | | | [address] | | | | | | | | +--------+ + + + + | 01/07/ | Appointment | Infusion Therapy | Yancy Clifford MD | | | 2019 | | | [address] | | | | | | [place] | | | | | | [address] | | | | | | | | +--------+ + + + + | 01/07/ | Office | Oncology | Yancy Clifford MD | | | 2019 | Visit | | [address] | | | | | | [place] | | | | | | [address] | | | | | | | | +--------+ + + + + | 01/07/ | Appointment | Infusion Therapy | Yancy Clifford MD | | | 2019 | | | [address] | | | | | | [place] | | | | | | [address] | | | | | | | | +--------+ + + + + documented as of this encounter Procedures + +--------+ + + + | Procedure Name | Priori | Date/Time | Associated Diagnosis | Comments | | | ty | | | | + +--------+ + + + | CBC WITH | STAT | 11/27/2019 | Malignant neoplasm | Results for this | | DIFFERENTIAL | | 9:39 AM | of left ovary (HCC) | procedure are in the | | | | PST | | results section. | + +--------+ + + + | COMPREHENSIVE | STAT | 11/27/2019 | Malignant neoplasm | Results for this | | METABOLIC PANEL | | 9:39 AM | of left ovary (HCC) | procedure are in the | | | | PST | | results section. | + +--------+ + + + documented in this encounter Results CBC with Differential (11/27/2019 9:39 AM PST) [...] | | | Estimate | Performed at [facility], [address] | | LAB | | | [address] | | [facility] | | | | [address], [place] | | LABORATORY | | | | [address] | | | | + + + + + + + + | Specimen | + + | Blood | + + + + + + + | Performing | Address | City/State/Zipcode | Phone Number | | Organization | | | | + + + + + | REFERENCE LAB | [address] | [place] [address] | [phone] | | [facility] | [address] | | | | LABORATORY | | | | + + + + + | REFERENCE LAB | [address] | [place] [address] | | | [facility] | [address] | [...] [facility] | | | | Bl[address];[place] [address] | | LABORATORY | | + + + + + + | K | 4.3Comment: Testing | 3.5 - 4.9 | REFERENCE | | | | performed at [facility];[address] | mmol/L | LAB | | | | [place] | | [facility] | | | | [address];[place] [address] | | LABORATORY | | + + + + + + | Cl | 106Comment: Testing | 99 - 109 mmol/L | REFERENCE | | | | performed at [facility];[address] | | LAB | | | | [place] | | [facility] | | | | [address];[place] [address] | | LABORATORY | | + + + + + + | CO2 | 27Comment: Testing | 23 - 32 mmol/L | REFERENCE | | | | Performed at [facility], [address] | | LAB | | | | [address] | | [facility] | | | | [address], [place] | | LABORATORY | | | | [address] | | | | + + + + + + | Anion Gap | 9Comment: Testing | 5 - 20 mmol/L | REFERENCE | | | | performed at [facility];[address] | | LAB | | | | [place] | | [facility] | | | | [address];[place] [address] | | LABORATORY | | + + [...] [place] | | | | | | [address] | | | | + + + + + + + + | Specimen | + + | Blood | + + + + + + + | Performing | Address | City/State/Zipcode | Phone Number | | Organization | | | | + + + + + | REFERENCE LAB | [address] | [place] [address] | [phone] | | [facility] | Bl[address] | | | | LABORATORY | | | | + + + + + | REFERENCE LAB | [address] | [place] [address] | | | [facility] | Bl[address] | [...] chloride 0.9% flush 10 | Given | 11/27/20 | 10 mLs | | | | mL 10 mL, Intracatheter, PRN, | | 19 10:18 | | | | | Line Care, Starting 11/27/19 | | AM PST | | | | | at 1018 | | | | | | + +--------+ +--------+------+------+ +---+---+ | | | +---+---+ documented in this encounter"
--- OUTSIDE RECORDS SUMMARY | ~2019-12-08 | XMS | Encounter Summary ---
Demographics + + + | Address | [address] | | | [place] [address] | + + + | Home Phone | | + + + | Preferred Language | Unknown | + + + | Marital Status | | + + + | Pentecostal Affiliation | Unknown | + + + | Race | Unknown | + + + | Ethnic Group | Unknown | + + + Author + + + | Author | [facility] | | | and [place] | + + + | Organization | [facility] | | | [...] | | | | [place] [address] | | + + + + + | Emory Larios | ECON | Unknown | | + + + + + Care Team Providers + +------+ + | Care Carbon Brushes Assembler Name | Role | Phone | + +------+ + | Shannan Deng | PCP | | + +------+ + Reason for Visit + + + | Reason | Comments | + + + | Follow-up | | + + + Encounter Details +--------+---------+ + + + | Date | Type | Department | Care Team | Description | +--------+---------+ + + + | 07/23/ | Office | [facility] | Yancy Clifford MD | Malignant neoplasm | | 2019 | Visit | HEMATOLOGY AND | [address] | of left ovary (HCC) | | | | ONCOLOGY [address] | [place] | (Primary Dx); | [address] | [id number] | Chemotherapy | | | | [place] | | management, | | | | [address] | | encounter for | | | | [phone] | | | +--------+---------+ + + + [...] | | | + +---+---+---+ + + + | Sex Assigned at [...] + + + | Blood Pressure | 118/80 | 07/23/2019 10:09 AM | | | | | PDT | | + + + + + | Pulse | 98 | 07/23/2019 10:09 AM | | | | | PDT | | + + + + + | Temperature | 36.8 C (98.2 F) | 07/23/2019 10:09 AM | | | | | PDT | | + + + + + | Respiratory Rate | - | - | | + + + + + | Oxygen Saturation | 99% | 07/23/2019 10:09 AM | | | | | PDT | | + + + + + | Inhaled Oxygen | - | - | | | Concentration | | | | + + + + + | Weight | 84 kg (185 lb 1.3 | 07/23/2019 10:09 AM | | | | oz) | PDT | | + + + + + | Height | 162.6 cm (5' 4") | 07/23/2019 10:09 AM | | | | | PDT | | + + + + + | Body Mass Index | 31.77 | 07/23/2019 10:09 AM | | | | | PDT | | + + + + + documented in this encounter Progress Notes Yancy Clifford MD - 07/23/2019 10:30 AM PDT ONCOLOGY FOLLOW-UP VISIT Patient ID: Ramila Lopez is a 59 y.o. female. Referring Provider: No ref. provider found PCP: SALINA Elaine Surgeon: Dr. Hoskins Radiation oncologist: Oncology History Malignant neoplasm of left ovary [...] 05/2017 Genetic Testing Negative genetic testing through [facility]. 07/2017 Surgery S/p debulking surgery. Final pathology [...] rtial response. On maintenance Avastin since 05/2019. Stage Cancer Staging Malignant neoplasm of left ovary (HCC) Staging form: Ovary, Fallopian Tube, And Primary Peritoneal Carcinoma, AJCC 8th Edition - Pathologic: FIGO Stage JOVAN - Signed by Yancy Clifford MD on 07/24/2019 Laterality: Left HPI: She feels well on today's visit. Has cut down the tobacco use. Denies any fever, chest pain , worsening SOB, abdominal pain, n/v. No change of bowels and urination. Review of Systems Constitutional: Negative for activity change, appetite change, fatigue, fever and unexpecte d weight change. HENT: Negative for mouth sores and trouble swallowing. Respiratory: Positive for cough. Negative for shortness of breath. Cardiovascular: Negative for chest pain and leg swelling. Gastrointestinal: Negative for abdominal distention, abdominal pain, constipation, diarrhea , nausea and vomiting. Musculoskeletal: Positive for arthralgias. Negative for back pain and myalgias. Neurological: Negative for light-headedness and numbness. Hematological: Negative for adenopathy. Does not bruise/bleed easily. Psychiatric/Behavioral: Negative for dysphoric mood. The patient is not nervous/anxious. Allergies Allergen Reactions Codeine Nausea And Vomiting Past Medical History: Diagnosis Date Arthritis Asthma Blood clot in vein Broken bones Chickenpox Hyperlipidemia Malignant neoplasm (HCC) Past Surgical History: Procedure Laterality Date HYSTERECTOMY Social History Socioeconomic History Marital status: Spouse name: Not on file Number of children: 2 Years of education: 11 Highest education level: Not on file Tobacco Use Smoking status: Current Every Day Smoker Packs/day: 0.50 Smokeless tobacco: Never Used Family History Problem Relation Age of Onset Cancer Mother Lung cancer Mother Cancer Father Colon cancer Father Heart attack Father Cancer Other Current Outpatient Medications on File Prior to Visit Medication Sig Dispense Refill albuterol (PROVENTIL HFA) [...] 30 tablet 3 No current facility-administered medications on file prior to visit. Objective: BP 118/80 | Pulse 98 | Temp 36.8 C (98.2 F) (Tympanic) | Ht 1.626 m (5' 4") | Wt 84 kg (185 lb 1.3 oz) | SpO2 99% | BMI 31.77 kg/m Physical Exam Constitutional: She is oriented to person, place, and time. No distress. HENT: Mouth/Throat: Oropharynx is clear and moist. Neck: Normal range of motion. Neck supple. Cardiovascular: Normal rate and regular rhythm. Pulmonary/Chest: Breath sounds normal. Abdominal: Soft. Bowel sounds are normal. She exhibits no distension. There is no tendernes s. A hernia is present. Musculoskeletal: She exhibits no edema. Neurological: She is alert and oriented to person, place, and time. Office Visit on 07/23/2019 Component Date Value Ref Range Status WBC 07/23/2019 7.05 3.80 - 11.00 K/uL Final RBC 07/23/2019 4.71 3.70 - 5.10 M/uL Final Hemoglobin 07/23/2019 14.9 11.3 - 15.5 g/dL Final Hematocrit 07/23/2019 45.0 34.0 - 46.0 % Final MCV 07/23/2019 95.5 80.0 - 100.0 fl Final MCH 07/23/2019 31.6 27.0 - 34.0 pg Final MCHC 07/23/2019 33.1 32.0 - 35.5 g/dL Final RDW-SD 07/23/2019 61.7* 37 - 53 fl Final Platelet Count 07/23/2019 203 150 - 400 K/uL Final MPV 07/23/2019 7.3 fl Final Diff Type 07/23/2019 AUTOMATED Final % Neutrophils 07/23/2019 62.10 % Final % Lymphocytes 07/23/2019 31.50 % Final Monocyte % 07/23/2019 3.87 % Final Eosinophils % 07/23/2019 1.49 % Final Basophils % 07/23/2019 1.04 % Final Neutrophils, Absolute 07/23/2019 4.38 1.90 - 7.40 K/uL Final Absolute Lymphocytes 07/23/2019 2.22 1.00 - 3.90 K/uL Final Absolute Monocytes 07/23/2019 0.27 0.00 - 0.80 K/uL Final Eosinophils, Absolute 07/23/2019 0.11 0.00 - 0.50 K/uL Final Basophils, Absolute 07/23/2019 0.07 0.00 - 0.10 K/uL Final RBC Morphology 07/23/2019 2+ Final ANISO Platelet Estimate 07/23/2019 ADEQUATE Final Testing Performed at [facility], [address], [address], [place] [address] Na 07/23/2019 140 135 - 145 mmol/L Final K 07/23/2019 4.2 3.5 - 4.9 mmol/L Final Cl 07/23/2019 102 99 - 109 mmol/L Final CO2 07/23/2019 29 23 - 32 mmol/L Final Anion Gap 07/23/2019 13 5 - 20 mmol/L Final Glucose 07/23/2019 188* 65 - 99 mg/dL Final BUN 07/23/2019 15 8 - 25 mg/dL Final Creatinine 07/23/2019 0.69 0.50 - 1.00 mg/dL Final BUN/Creatinine Ratio 07/23/2019 22 Final Calcium 07/23/2019 9.7 8.5 - 10.5 mg/dL Final Protein, Total 07/23/2019 7.3 6.3 - 8.2 g/dL Final Albumin 07/23/2019 3.8 3.3 - 4.8 g/dL Final Globulin 07/23/2019 3.5 1.3 - 4.9 g/dL Final A/G Ratio 07/23/2019 1.1 1.0 - 2.4 Final BILIRUBIN, TOTAL 07/23/2019 0.4 0.1 - 1.5 mg/dL Final ALK PHOS 07/23/2019 64 35 - 115 U/L Final AST 07/23/2019 14 10 - 45 U/L Final ALT 07/23/2019 13 10 - 65 U/L Final Estimated GFR 07/23/2019 >60 >60 mL/min/1.73m2 Final Comment: GFR <60: CHRONIC KIDNEY DISEASE, IF FOUND OVER A 3 MONTH PERIOD. GFR <15: KIDNEY FAILURE. FOR AMERICANS, MULTIPLY THE CALCULATED GFR BY 1.210. This eGFR is calculated using the MDRD IDMS traceable equation. Testing Performed at [facility], [address], [address], [place] [address] Color, UA 07/23/2019 YELLOW Final Clarity, UA 07/23/2019 CLEAR Final Specific [place], Urine 07/23/2019 1.025 1.002 - 1.030 Final Leukocyte esterase, UA 07/23/2019 NEGATIVE NEG Final Nitrite, UA 07/23/2019 NEGATIVE NEG Final Urobilinogen, Ur 07/23/2019 0.2 <1.1 mg/dL Final Protein, Urine (mg/dL) 07/23/2019 100* NEG mg/dL Final pH, Urine 07/23/2019 5.0 5.0 - 8.0 Final Blood, UA 07/23/2019 NEGATIVE NEG Final Ketones, UA 07/23/2019 NEGATIVE NEG mg/dL Final Bilirubin, UA 07/23/2019 NEGATIVE NEG Final Glucose, Ur 07/23/2019 NEGATIVE NEG mg/dL Final Testing Performed at [facility], [address], [address], [place] [address] WBC UA 07/23/2019 0-2 0 - 5 /hpf Final RBC UA 07/23/2019 NONE SEEN 0 - 5 /hpf Final SQUAMOUS EPITHELIAL UA 07/23/2019 6-10 /lpf Final BACTERIA UA 07/23/2019 NONE SEEN NONE Final MUCUS UA 07/23/2019 1+ Final Testing Performed at [facility], [address], [address], [place] [address] PRO/CREA RATIO,URINE 07/23/2019 0.320 Final Testing performed at [facility];[address];[place] [address] Creatinine, random urine 07/23/2019 172.0 mg/dL Final Comment: NO NORMAL RANGE ESTABLISHED Testing performed at [facility];[address];[place] [address] Protein, Urine 07/23/2019 55 mg/dL Final Comment: NO NORMAL RANGE ESTABLISHED Testing performed at [facility];[address] [facility];[place] [address] Imaging: Assessment: ECO 59 yo lady with 1. History of left ovarian cancer, high [...] alliative chemo with carboplatin/ gemcitabine/ Avastin completed in 05/2019 with very good response. She is currently on maintenance Avastin. She is tolerating the treatment very well. Her lab is good. No sign of disease progression. Will continue the treatment. Plan for total one year of treatment. Continue to follow the CA125. Will repeat the scan around Nov. Plan: 1. Proceed with Avastin. 2. Return in 3 weeks with lab. Greater than 25minutes were spent examining the patient, review of medical records, quitline counselor ing, coordination of care, and CPOE. More than 50% of that time was spent in direct contact with the patient. documented in this encount er Plan of Treatment +--------+ + + + + | Date | Type | Specialty | Care Team | Description | +--------+ + + + + | 12/17/ | Appointment | Infusion Therapy | Yancy Clifford MD | | | 2019 | | | [address] | | | | | | [place] | | | | | | [address] | | | | | | | | +--------+ + + + + | 12/17/ | Office | Oncology | Yancy Clifford MD | | | 2019 | Visit | | [address] | | | | | | [place] | | | | | | [address] | | | | | | | | +--------+ + + + + | 12/17/ | Appointment | Infusion Therapy | Yanyc Clifford MD | | | 2019 | | | [address] | | | | | | [place] | | | | | | [address] | | | | | | | | +--------+ + + + + | 01/07/ | Appointment | Infusion Therapy | Yancy Clifford MD | | | 2019 | | | [address] | | | | | | [place] | | | | | | [address] | | | | | | | | +--------+ + + + + | 01/07/ | Office | Oncology | Yancy Clifford MD | | | 2019 | Visit | | [address] | | | | | | [place] | | | | | | [address] | | | | | | | | +--------+ + + + + | 01/07/ | Appointment | Infusion Therapy | Yancy Clifford MD | | | 2019 | | | [address] | | | | | | [place] | | | | | | [address] | | | | | | | | +--------+ + + + + documented as of this encounter Procedures + +--------+ + + + | Procedure Name | Priori | Date/Time | Associated Diagnosis | Comments | | | ty | | | | + +--------+ + + + | PROTEIN/CREATININE | Routin | 07/23/2019 | Malignant neoplasm | Results for this | | RATIO, URINE | e | 10:28 AM | of left ovary (HCC) | procedure are in the | | | | PDT | Chemotherapy | results section. | | | | | management, | | | | | | encounter for | | + +--------+ + + + | PROTEIN, URINE, | Routin | 07/23/2019 | Malignant neoplasm | Results for this | | RANDOM | e | 10:28 AM | of left ovary (HCC) | procedure are in the | | | | PDT | Chemotherapy | results section. | | | | | management, | | | | | | encounter for | | + +--------+ + + + | CREATININE, URINE, | Routin | 07/23/2019 | Malignant neoplasm | Results for this | | RANDOM | e | 10:28 AM | of left ovary (HCC) | procedure are in the | | | | PDT | Chemotherapy | results section. | | | | | management, | | | | | | encounter for | | + +--------+ + + + | URINALYSIS WITH | Routin | 07/23/2019 | Malignant neoplasm | Results for this | | MICROSCOPIC IF | e | 9:46 AM | of left ovary (HCC) | procedure are in the | | INDICATED | | PDT | Chemotherapy | results section. | | | | | management, | | | | | | encounter for | | + +--------+ + + + | URINALYSIS, | Routin | 07/23/2019 | Malignant neoplasm | Results for this | | MICROSCOPIC ONLY | e | 9:46 AM | of left ovary (HCC) | procedure are in the | | | | PDT | Chemotherapy | results section. | | | | | management, | | | | | | encounter for | | + +--------+ + + + | CBC WITH | Routin | 07/23/2019 | Malignant neoplasm | Results for this | | DIFFERENTIAL | e | 9:46 AM | of left ovary (HCC) | procedure are in the | | | | PDT | Chemotherapy | results section. | | | | | management, | | | | | | encounter for | | + +--------+ + + + | COMPREHENSIVE | Routin | 07/23/2019 | Malignant neoplasm | Results for this | | METABOLIC PANEL | e | 9:46 AM | of left ovary (HCC) | procedure are in the | | | | PDT | Chemotherapy | results section. | | | | | management, | | | | | | encounter for | | + +--------+ + + + documented in this encounter Results Protein, Urine, Random (07/23/2019 10:28 AM PDT) + + + + + + | Component | Value | Ref Range | Performed | Pathologist | | | | | At | Signature | + + + + + + | Protein, | 55Comment: NO NORMAL | mg/dL | REFERENCE | | | Urine | RANGE ESTABLISHEDTesting | | LAB | | | | performed at [facility];[address] | | [facility] | | | | [address] | | LABORATORY | | | | [address];[place] [address] | | | | | | | | | | + + + + + + + + | Specimen | + + | | + + + + + + + | Performing | Address | City/State/Zipcode | Phone Number | | Organization | | | | + + + + + | REFERENCE LAB | [address] | [place] [address] | [phone] | | [facility] | [address] | | | | LABORATORY | | | | + + + + + | REFERENCE LAB | [address] | [place] [address] | | | [facility] | Bl[address] | | | | LABORATORY | | | | + + + + + Creatinine, Urine, Random (07/23/2019 10:28 AM PDT) + + + + + + | Component | Value | Ref Range | Performed | Pathologist | | | | | At | Signature | + + + + + + | Creatinine, | 172.0Comment: NO NORMAL | mg/dL | REFERENCE | | | random | RANGE ESTABLISHEDTesting | | LAB | | | urine | performed at [facility];[address] | | [facility] | | | | [address] | | LABORATORY | | | | [address];[place] [address] | | | | | | | | | | + + + + + + + + | Specimen | + + | | + + + + + + + | Performing | Address | City/State/Zipcode | Phone Number | | Organization | | | | + + + + + | REFERENCE LAB | [address] | [place] [address] | [phone] | | [facility] | Bl[address] | | | | LABORATORY | | | | + + + + + | REFERENCE LAB | [address] | [place] [address] | | | [facility] | Blvd[address] | | | | LABORATORY | | | | + + + + + Protein/Creatinine Ratio, Urine (07/23/2019 10:28 AM PDT) + + + + + + | Component | Value | Ref Range | Performed | Pathologist | | | | | At | Signature | + + + + + + | PRO/CREA | 0.320Comment: Testing | | REFERENCE | | | RATIO,URINE | performed at [facility];[address] | | LAB | | | | [facility] | | [facility] | | | | [address];[place] [address] | | LABORATORY | | + + + + + + + + | Specimen | + + | | + + + + + + + | Performing | Address | City/State/Zipcode | Phone Number | | Organization | | | | + + + + + | REFERENCE LAB | [address] [place] [address] | [place] [address] | [phone] | | [facility] | Blvd[address] | | | | LABORATORY | | | | + + + + + | REFERENCE LAB | [address] [place] [address] | [place] [address] | | | [facility] | Blvd[address] | | | | LABORATORY | | | | + + + + + Urinalysis, Microscopic Only (07/23/2019 9:46 AM PDT) + + + + + [...] + + + | RBC UA | NONE SEEN | 0 - 5 /hpf | REFERENCE | | | | | | LAB | | | | | | [facility] | | | | | | LABORATORY | | + + + + + + | SQUAMOUS | 6-10 | /lpf | REFERENCE | | | EPITHELIAL | | | LAB | | | UA | | | [facility] | | | | | | LABORATORY | | + + + + + + | BACTERIA UA | NONE SEEN | NONE | REFERENCE | | | | | | LAB | | | | | | [facility] | | | | | | LABORATORY | | + + + + + + | MUCUS UA | 1+Comment: Testing | | REFERENCE | | | | Performed at [facility], [address] | | LAB | | | | [address] | | [facility] | | | | [address], [place] | | LABORATORY | | | | [address] | | | | + + + + + + + + | Specimen | + + | | + + + + + + + | Performing | Address | City/State/Zipcode | Phone Number | | Organization | | | | + + + + + | REFERENCE LAB | [address] | [place] [address] | [phone] | | [facility] | Blvd[address] | | | | LABORATORY | | | | + + + + + | REFERENCE LAB | [address] | [place] [address] | | | [facility] | Blvd[address] | | | | LABORATORY | | | | + + + + + Urinalysis with Microscopic if Indicated (07/23/2019 9:46 AM PDT) + + + + + [...] - 1.030 | REFERENCE | | | [place], | | | LAB | | | [...] | | | Performed at [facility], [address] | | LAB | | | | [address] | | [facility] | | | | [address] | | LABORATORY | | | | [address] | | | | + + + + + + + + | Specimen | + + | | + + + + + + + | Performing | Address | City/State/Zipcode | Phone Number | | Organization | | | | + + + + + | REFERENCE LAB | [address] [facility] [facility] [address] [facility] | [place] [address] | [phone] | | [facility] | Blvd[address] | | | | LABORATORY | | | | + + + + + | REFERENCE LAB | [address] [facility] [address] | [place] [address] | | | [facility] | Blvd[address] | | | | LABORATORY | | | | + + + + + Comprehensive Metabolic Panel (07/23/2019 9:46 AM PDT) + + + + + + | Component | Value | Ref Range | Performed | Pathologist | | | | | At | Signature | + + + + + + | Na | 140 | 135 - 145 | REFERENCE | | | | | mmol/L | LAB | | | | | | [facility] | | | | | | LABORATORY | | + + + + + + | K | 4.2 | 3.5 - 4.9 | REFERENCE | | | | | mmol/L | LAB | | | | | | [facility] | | | | | | LABORATORY | | + + + + + + | Cl | 102 | 99 - 109 mmol/L | REFERENCE | | | | | | LAB | | | | | | [facility] | | | | | | LABORATORY | | + + + + + + | CO2 | 29 | 23 - 32 mmol/L | REFERENCE [...] + + + + | Glucose | 188 (H) | 65 - 99 mg/dL | [...] + + + + | Creatinine | 0.69 | 0.50 - 1.00 | REFERENCE | | | | | mg/dL | LAB | | | | | | [facility] | | | | | | LABORATORY | | + + + + + + | BUN/Creatin | 22 | | REFERENCE | | | ine Ratio | | | LAB | | | | | | [facility] | | | | | | LABORATORY | | + + + + + + | Calcium | 9.7 | 8.5 - 10.5 | REFERENCE | | | | | mg/dL | LAB | | | | | | [facility] | | | | | | LABORATORY | | + + + + + + | Protein, | 7.3 | 6.3 - 8.2 g/dL | REFERENCE [...] + + + + | Globulin | 3.5 | 1.3 - 4.9 g/dL | REFERENCE [...] + + + | ALK PHOS | 64 | 35 - 115 U/L | REFERENCE [...] | | | | | Performed at [facility], [address] | | | | | | [address] | | | | | | [address], [place], [place] | | | | | | [address] | | | | + + + + + + + + | Specimen | + + | | + + + + + + + | Performing | Address | City/State/Zipcode | Phone Number | | Organization | | | | + + + + + | REFERENCE LAB | [address] [place] [address] | [place] [address] | [phone] | | [facility] | Blvd[address] | | | | LABORATORY | | | | + + + + + | REFERENCE LAB | [address] [place] [address] | [place] [address] | | | [facility] | Blvd[address] | | | | LABORATORY | | | | + + + + + CBC with Differential (07/23/2019 9:46 AM PDT) + + + + + + | Component | Value | Ref Range | Performed | Pathologist | | | | | At | Signature | + + + + + + | WBC | 7.05 | 3.80 - 11.00 | REFERENCE | | | | | K/uL | LAB | | | | | | [facility] | | | | | | LABORATORY | | + + + + + + | RBC | 4.71 | 3.70 - 5.10 | REFERENCE | [...] + + + + | MCV | 95.5 | 80.0 - 100.0 fl | REFERENCE | | | | | | LAB | | | | | | [facility] | | | | | | LABORATORY | | + + + + + + | MCH | 31.6 | 27.0 - 34.0 pg | REFERENCE | | | | | | LAB | | | | | | [facility] | | | | | | LABORATORY | | + + + + + + | MCHC | 33.1 | 32.0 - 35.5 | REFERENCE | | | | | g/dL | LAB | | | | | | [facility] | | | | | | LABORATORY | | + + + + + + | RDW-SD | 61.7 (H) | 37 - 53 fl | REFERENCE | | | | | | LAB | | | | | | [facility] | | | | | | LABORATORY | | + + + + + + | Platelet | 203 | 150 - 400 K/uL | REFERENCE [...] + + + + | % | 62.10 | % | REFERENCE | | | Neutrophils | | | LAB | | | | | | [facility] | | | | | | LABORATORY | | + + + + + + | % | 31.50 | % | REFERENCE | | | Lymphocytes | | | LAB | | | | | | [facility] | | | | | | LABORATORY | | + + + + + + | Monocyte % | 3.87 | % | REFERENCE | | | | | | LAB | | | | | | [facility] | | | | | | LABORATORY | | + + + + + + | Eosinophils | 1.49 | % | REFERENCE | | | % | | | LAB | | | | | | [facility] | | | | | | LABORATORY | | + + + + + + | Basophils % | 1.04 | % | REFERENCE | | | | | | LAB | | | | | | [facility] | | | | | | LABORATORY | | + + + + + + | Neutrophils | 4.38 | 1.90 - 7.40 | REFERENCE | | | , Absolute | | K/uL | LAB | | | | | | [facility] | | | | | | LABORATORY | | + + + + + + | Absolute | 2.22 | 1.00 - 3.90 | REFERENCE | | | Lymphocytes | | K/uL | LAB | | | | | | [facility] | | | | | | LABORATORY | | + + + + + + | Absolute | 0.27 | 0.00 - 0.80 | REFERENCE | | | Monocytes | | K/uL | LAB | | | | | | [facility] | | | | | | LABORATORY | | + + + + + + | Eosinophils | 0.11 | 0.00 - 0.50 | REFERENCE | [...] + + + | RBC | 2+Comment: ANISO | | REFERENCE | | | Morphology | | | LAB | | | | | | [facility] | | | | | | LABORATORY | | + + + + + + | Platelet | ADEQUATEComment: Testing | | REFERENCE | | | Estimate | Performed at [facility], [address] | | LAB | | | | [address] | | [facility] | | | | [address] [place] | | LABORATORY | | | | [address] | | | | + + + + + + + + | Specimen | + + | | + + + + + + + | Performing | Address | City/State/Zipcode | Phone Number | | Organization | | | | + + + + + | REFERENCE LAB | [address] [place] [address] | [place] [address] | [phone] | | [facility] | Blvd[address] | | | | LABORATORY | | | | + + + + + | REFERENCE LAB | [address] [place] [address] | [place] [address] | | | [facility] | Blvd[address] | | | | LABORATORY | | | | + + + + + documented in this encounter Visit Diagnoses + + | Diagnosis | + + | 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 | + + | Chemotherapy management, encounter for | + + documented in this encounter
--- OUTSIDE RECORDS SUMMARY | ~2019-12-08 | XMS | Encounter Summary ---
Demographics + + + | Address | [address] | | | [place] [address] | + + + | Home Phone | | + + + | Preferred Language | Unknown | + + + | Marital Status | | + + + | Rastafarian Affiliation | Unknown | + + + | Race | Unknown | + + + | Ethnic Group | Unknown | + + + Author + + + | Author | [facility] | | | and [place] | + + + | Organization | [facility] | | | [...] | | | | [place] [address] | | + + + + + | Emory Larios | ECON | Unknown | | + + + + + Care Team Providers + +------+ + | Care Hr Clerk Name | Role | Phone | + +------+ + | Shannan Deng | PCP | | + +------+ + Encounter Details +--------+ + + + + | Date | Type | Department | Care Team | Description | +--------+ + + + + | 03/26/ | Orders Only | [facility] | Conversion | | | 2019 | | CONVERSION [address] | Transaction, | | | | | [address] | Provider Unknown | | | | | [place], [place] | [phone] | | | | | [address] | | | | | | [phone] | | | +--------+ + + + [...] [place] | | | | | | [address] | | | | | | | | +--------+ + + + + | 12/17/ | Office | Oncology | Yancy Clifford MD | | | 2019 | Visit | | [address] | | | | | | [place] | | | | | | [address] | | | | | | | | +--------+ + + + + | 12/17/ | Appointment | Infusion Therapy | Yancy Clifford MD | | | 2019 | | | [address] | | | | | | [place] | | | | | | [address] | | | | | | | | +--------+ + + + + | 01/07/ | Appointment | Infusion Therapy | Yancy Clifford MD | | | 2019 | | | [address] | | | | | | [place] | | | | | | [address] | | | | | | | | +--------+ + + + + | 01/07/ | Office | Oncology | Yancy Clifford MD | | | 2019 | Visit | | [address] | | | | | | [place] | | | | | | [address] | | | | | | | | +--------+ + + + + | 01/07/ | Appointment | Infusion Therapy | Yancy Clifford MD | | | 2019 | | | [address] | | | | | | [place] | | | | | | [address] | | | | | | | | +--------+ + + + + documented as of this encounter Visit Diagnoses Not on filedocumented in this encounter"
--- OUTSIDE RECORDS SUMMARY | ~2019-12-08 | XMS | Encounter Summary ---
Demographics + + + | Address | [address] | | | [place] [address] | + + + | Home Phone | | + + + | Preferred Language | Unknown | + + + | Marital Status | | + + + | Spiritism Affiliation | Unknown | + + + | Race | Unknown | + + + | Ethnic Group | Unknown | + + + Author + + + | Author | [facility] | | | and [place] | + + + | Organization | [facility] | | [...] | | | | [place] [address] | | + + + + + | Emory Larios | ECON | Unknown | | + + + + + Care Team Providers + +------+ + | Care Dba Manager Name | Role | Phone | + +------+ + | Shannan Deng | PCP | | + +------+ + Reason for Referral Diagnostic/Screening (Routine) +--------+--------+ + + + + | Status | Reason | Specialty | Diagnoses / | Referred By | Referred To | | | | | Procedures | Contact | Contact | +--------+--------+ + + + + | Closed | | Radiology | Diagnoses | Andreia, | [facility] | | | | | Pulmonary | MD Scott | Echo [address] | | | | | HTN (HCC) | [address] | [address] | | | | | Procedures | [address] | [address] | | | | | ECHO | [address] | [place], [place] | | | | | Complete | [place], [place] | [address] | | | | | | [address] | Phone: | | | | | | Phone: | [phone] | | | | | | [phone] | Fax: | | | | | | Fax: | [phone] | | | | | | [phone] | | +--------+--------+ + + + + Encounter Details +--------+ + + + + | Date | Type | Department | Care Team | Description | +--------+ + + + + | 08/04/ | Orders Only | [facility] | Scott Boswell MD | Pulmonary HTN (HCC) | | 2019 | | PULMONOLOGY [address] | [address] | (Primary Dx) | | | | [address] | [address] [place], [place] | | | | | [place], [place] | [address] | | | | | [address] | | | | | | [phone] | | | +--------+ + + + [...] [place] | | | | | | [address] | | | | | | | | +--------+ + + + + | 01/07/ | Appointment | Infusion Therapy | Yancy Clifford MD | | | 2019 | | | [address] | | | | | | [place] | | | | | | [address] | | | | | | | | +--------+ + + + + | 01/07/ | Office | Oncology | Yancy Clifford MD | | | 2019 | Visit | | [address] | | | | | | [place] | | | | | | [address] | | | | | | | | +--------+ + + + + | 01/07/ | Appointment | Infusion Therapy | Yancy Clifford MD | | | 2019 | | | [address] | | | | | | [place] | | | | | | [address] | | | | | | | | +--------+ + + + + + + +--------+ + + | Name | Type | Priori | Associated Diagnoses | Order Schedule | | | | ty | | | + + +--------+ + + | ECHO Complete | Echocardiog | Routin | Pulmonary HTN | Expected: | | | pipo | e | ([facility]) | 08/04/2019, Expires: | | | | | | 08/04/2020 | + + +--------+ + + documented as of this encounter Visit Diagnoses + + | Diagnosis | + + | Pulmonary HTN (HCC) - Primary Other chronic pulmonary heart diseases | + + documented in this encounter"
--- OUTSIDE RECORDS SUMMARY | ~2019-12-08 | XMS | Encounter Summary ---
Demographics + + + | Address | [address] | | | [place] [address] | + + + | Home Phone | | + + + | Preferred Language | Unknown | + + + | Marital Status | | + + + | Shinto Affiliation | Unknown | + + + | Race | Unknown | + + + | Ethnic Group | Unknown | + + + Author + + + | Author | [facility] | | | and [place] | + + + | Organization | [facility] | | | [...] | | | | [place] [address] | | + + + + + | Emory Larios | ECON | Unknown | | + + + + + Care Team Providers + +------+ + | Care Allergist Immunologist Name | Role | Phone | + +------+ + | Shannan Deng | PCP | | + +------+ + Encounter Details +--------+ + + + + | Date | Type | Department | Care Team | Description | +--------+ + + + + | 09/24/ | Hospital | [facility] | Yancy Clifford MD | 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 dental tech nique maintained throughout procedure. Saline locked, left accessed for treatment. Urine s ample obtained. do cumented in this encounter Plan of Treatment +--------+ + + + + | Date | Type | Specialty | Care Team | Description | +--------+ + + + + | 12/17/ | Appointment | Infusion Therapy | Yancy Clifford MD | | | 2019 | | | [address] | | | | | | [place] | | | | | | [address] | | | | | | | | +--------+ + + + + | 12/17/ | Office | Oncology | Yancy Clifford MD | | | 2019 | Visit | | [address] | | | | | | [place] | | | | | | [address] | | | | | | | | +--------+ + + + + | 12/17/ | Appointment | Infusion Therapy | Yancy Clifford MD | | | 2019 | | | [address] | | | | | | [place] | | | | | | [address] | | | | | | | | +--------+ + + + + | 01/07/ | Appointment | Infusion Therapy | Yancy Clifford MD | | | 2019 | | | [address] | | | | | | [place] | | | | | | [address] | | | | | | | | +--------+ + + + + | 01/07/ | Office | Oncology | Yancy Clifford MD | | | 2019 | Visit | | [address] | | | | | | [place] | | | | | | [address] | | | | | | | | +--------+ + + + + | 01/07/ | Appointment | Infusion Therapy | Yancy Clifford MD | | | 2020 | | | [address] | | | | | | [place] | | | | | | [address] | | | | | | | | +--------+ + + + + documented as of this encounter Procedures + +--------+ + + + | Procedure Name | Priori | Date/Time | Associated Diagnosis | Comments | | | ty | | | | + +--------+ + + + | CBC WITH | STAT | 09/24/2019 | Malignant neoplasm | Results for this | | DIFFERENTIAL | | 1:14 PM | of left ovary (HCC) | procedure are in the | | | | PDT | | results section. | + +--------+ + + + | COMPREHENSIVE | STAT | 09/24/2019 | Malignant neoplasm | Results for this | | METABOLIC PANEL | | 1:14 PM | of left ovary (HCC) | procedure are in the | | | | PDT | | results section. | + +--------+ + + + documented in this encounter Results Comprehensive Metabolic Panel (09/24/2019 1:14 PM PDT) [...] [facility] | | | | Bl[address];[place] [address] | | LABORATORY | | + + + + + + | K | 4.1Comment: Testing | 3.5 - 4.9 | REFERENCE | | | | performed at [facility];[address] | mmol/L | LAB | | | | [place] | | [facility] | | | | [address];[place] [address] | | LABORATORY | | + + + + + + | Cl | 104Comment: Testing | 99 - 109 mmol/L | REFERENCE | | | | performed at [facility];[address] | | LAB | | | | [place] | | [facility] | | | | [address];[place] [address] | | LABORATORY | | + + + + + + | CO2 | 26Comment: Testing | 23 - 32 mmol/L | REFERENCE | | | | Performed at [facility], [address] | | LAB | | | | [facility] | | [facility] | | | | [address], [place] | | LABORATORY | | | | [address] | | | | + + + + + + | Anion Gap | 10Comment: Testing | 5 - 20 mmol/L | REFERENCE | | | | performed at [facility] | | LAB | | | | [facility] | | [facility] | | | | [address];[place] [address] | | LABORATORY | | + + [...] [place] | | | | | | [address] | | | | + + + + + + + + | Specimen | + + | Blood | + + + + + + + | Performing | Address | City/State/Zipcode | Phone Number | | Organization | | | | + + + + + | REFERENCE LAB | [address] [place] [address] | [place] [address] | [phone] | | [facility] | Blvd. | | | | LABORATORY | | | | + + + + + | REFERENCE LAB | [address] [place] [address] | [place] [address] | | | [facility] | Blvd. | [...] | | LABORATORY | | | | [address] | | | | + + + + + + + + | Specimen | + + | Blood | + + + + + + + | Performing | Address | City/State/Zipcode | Phone Number | | Organization | | | | + + + + + | REFERENCE LAB | [address] | [place] [address] | [phone] | | [facility] | Blvd[address] | | | | LABORATORY | | | | + + + + + | REFERENCE LAB | [address] | [place] [address] | | | [facility] | Blvd. | [...] chloride 0.9% flush 10 | Given | 09/24/20 | 10 mLs | | | | mL 10 mL, Intracatheter, PRN, | | 19 1:44 | | | | | Line Care, Starting Teresa 09/24/19 | | PM PDT | | | | | at 1344 | | | | | | + +--------+ +--------+------+------+ +---+---+ | | | +---+---+ documented in this encounter"
--- OUTSIDE RECORDS SUMMARY | ~2019-12-08 | XMS | Encounter Summary ---
Demographics + + + | Address | [address] | | | [place] [address] | + + + | Home Phone | | + + + | Preferred Language | Unknown | + + + | Marital Status | | + + + | Sabianist Affiliation | Unknown | + + + | Race | Unknown | + + + | Ethnic Group | Unknown | + + + Author + + + | Author | [facility] | | | and [place] | + + + | Organization | [facility] | | | and [place] | + + + | Address | Unknown | + + + | Phone | Unavailable | + + + Support + + + + + | Name | Relationship | Address | Phone | + + + + + | Jared Easonrick | ECON | [address] | | | | | [place] [address] | | + + + + + | Emory Larios | ECON | Unknown | | + + + + + Care Team Providers + +------+ + | Care Bilingual Research Interviewer Name | Role | Phone | + +------+ + | Shannan Deng | PCP | | + +------+ + Reason for Visit + + + | Reason | Comments | + + + | Chemotherapy | | + + + Treatment/Therapy Plan (Routine) + +--------+ + + + + | Status | Reason | Specialty | Diagnoses / | Referred By | Referred To | | | | | Procedures | Contact | Contact | + +--------+ + + + + | Authorizatio | | Infusion | Diagnoses | Venessa | [facility] [facility] | | n not | | Therapy | Malignant | MD Yancy | Infusion | | Required | | | neoplasm of | [address] | | | | | left ovary | [address] | | | | | (HCC) | AVE | [place], | | | | | Ascites, | [place], | [place] [address] | | | | | malignant | [place] [address] | Phone: | | | | | Procedures | Phone: | [phone] | | | | | [place] | [phone] | Fax: | | | | | BEVACIZUMAB | Fax: | [phone] | | | | | INJECTION, | [phone] | | | | | | 10 MG [id number] | | | | | | | - [place] | | | | | | | [...] + + | 11/27/ | Hospital | [facility] | Yancy Clifford MD | Malignant neoplasm | | 2019 | Encounter | HEMATOLOGY AND | [address] | of left ovary (HCC) | | | | ONCOLOGY INFUSIONS | [place] | (Primary Dx); | | | | [address] | [address] | Ascites, malignant | | | | [address]VE [place], [place] | | | | | | [address] | Ymuiko Crocker, | | | | | [phone] | RN | | +--------+ + + + [...] of this encounter Discharge Instructions Patient Instructions Yumiko Crocker RN - 11/27/2019 11:30 AM PST Bevacizumab injection Brand Name: Avastin What is this medicine? BEVACIZUMAB (be marycarmen gomez mab) is a monoclonal antibody. It is used to treat many types of cancer. How should I use this medicine? This medicine is for infusion into a vein. It is given by a health career guidance counselor in a h ospital or clinic setting. Talk to your academic tutor regarding the use of this medicine in children. Special care may be needed. What side effects may I notice from receiving this medicine? Side effects that you should report to your doctor or health career guidance counselor as soon as p ossible: allergic reactions [...] attention (report to your doctor or health career guidance counselor if they continue or are bothersome): back pain changes in taste decreased appetite dry skin nausea tiredness What may interact with this medicine? Interactions are not expected. What if I miss a dose? It is important not to miss your dose. Call your doctor or health career guidance counselor if you are unable to keep an [...] should talk to your doctor or health career guidance counselor if you are concerned about your fertility. [...] documented as of this encounter Progress Notes Yumiko Crocker RN - 11/27/2019 11:30 AM PSTPatient here for C9D1 Avastin. Patient was se en by Jennyfer NORTON and cleared for treatment. Labs reviewed ,Pt orders/protocol verified. Height, Weight, and BSA checked. Doses verified with second RN Sherrill prior to releasing orders to pharmacy. Distress screening done. Drugs checked for accurate color and clarity and no precipitate was noted. Pt tolerated treatment without any issues. Updated schedule and copies of most recent lab r esults provided to pt. Pt discharged to home in stable condition. Encouraged to call with qu estions or concerns. DEC 17 1:30 PM: IVT LAB DRAW with CATRACHITO BOO SS LAB DRAW in [facility] INFUSION SUPPORT SERVICES 2:15 PM: Office Visit Extended Appointment starts at 2:30 PM with Yancy Clifford MD in [facility] HEMATOLOGY AND ONCOLOGY 3:00 PM: Onc Infusion with JAZZY CHAIR 14 in [facility] HEMATOLOGY AND ONCOLOGY INFUSIONS documented in this [...] [place] | | | | | | [address] | | | | | | | | +--------+ + + + + | 12/17/ | Office | Oncology | Yancy Clifford MD | | | 2019 | Visit | | [address] | | | | | | [place] | | | | | | [address] | | | | | | | | +--------+ + + + + | 12/17/ | Appointment | Infusion Therapy | Yancy Clifford MD | | | 2019 | | | [address] | | | | | | [place] | | | | | | [address] | | | | | | | | +--------+ + + + + | 01/07/ | Appointment | Infusion Therapy | Yancy Clifford MD | | | 2019 | | | [address] | | | | | | [place] | | | | | | [address] | | | | | | | | +--------+ + + + + | 01/07/ | Office | Oncology | Yancy Clifford MD | | | 2019 | Visit | | [address] | | | | | | [place] | | | | | | [address] | | | | | | | | +--------+ + + + + | 01/07/ | Appointment | Infusion Therapy | Yancy Clifford MD | | | 2019 | | | [address] | | | | | | [place] | | | | | | [address] | | | | | | | [...] (AVASTIN) 1,300 mg | New Bag | 11/27/20 | 1,300 mg | 304 | | | in sodium chloride 0.9% 152 mL | | 19 11:42 | | mL/hr | | | infusion 1,300 mg (rounded from | | AM PST | | | | | 1,282.5 mg = 15 mg/kg | | | | | | | 85.5 kg Treatment plan recorded | | | | | | | weight), Intravenous, Administer | | | | | | | over 30 Minutes, ONCE, Fri | | | | | | | 11/27/19 at 1135, For 1 dose | | | | | | + +---------+ + +-------+------+ +---+---+ | | | +---+---+ + +-------+ +-------+---+---+ | heparin 100 units/mL flush | Given | 11/27/20 | 500 | | | | injection 500 Units 500 Units (5 | | 19 12:17 | Units | | | | mL), Intracatheter, PRN, Line | | PM PST | | | | | Care, Starting Sat11/27/19 at | | | | | | | 1101 | | | | | | + +-------+ +-------+---+---+ +---+---+ | | | +---+---+ + +---------+ +---------+ +---+ | sodium chloride 0.9% (NS) bolus | New Bag | 11/27/20 | 250 mLs | 30 mL/hr | | | 250 mL 250 mL, Intravenous, | | 19 11:15 | | | | | PRN, Flush before and after IV | | AM PST | | | | | medication(s) and as needed with | | | | | | | NS, Starting Sat11/27/19 at 1101 | | | | | | + +---------+ +---------+ +---+ +---+---+ | | | +---+---+ documented in this encounter"
--- OUTSIDE RECORDS SUMMARY | ~2019-12-08 | XMS | Encounter Summary ---
Demographics + + + | Address | [address] | | | [place] [address] | + + + | Home Phone | | + + + | Preferred Language | Unknown | + + + | Marital Status | | + + + | Orthodoxy Affiliation | Unknown | + + + | Race | Unknown | + + + | Ethnic Group | Unknown | + + + Author + + + | Author | [facility] | | | and [place] | + + + | Organization | [facility] | | | [...] | | | | [place] [address] | | + + + + + | Emory Larios | ECON | Unknown | | + + + + + Care Team Providers + +------+ + | Care Agriculture Intern Name | Role | Phone | + [...] | | | Ascites, | [place], | [place] [address] | | | | | malignant | [place] [address] | Phone: | | | | | Procedures | Phone: | [phone] | | | | | [place] | [phone] | Fax: | | | | | BEVACIZUMAB | Fax: | [phone] | | | | | INJECTION, | [phone] | | | | | | 10 MG [id number] | | | | | | | - [place] | | | | | | | [...] | +--------+ + + + + | 11/05/ | Hospital | [facility] | Yancy Clifford MD | Malignant neoplasm | | 2019 | Encounter | HEMATOLOGY AND | [address] | of left ovary (HCC) | | | | ONCOLOGY INFUSIONS | [place] | (Primary Dx); | | | | [address] | [address] | Ascites, malignant | | | | AVE [place], [place] | | | | | | [address] | Jennyfer Carcamo, | | | | | [phone] | RN | | +--------+ + + [...] of this encounter Discharge Instructions Patient Instructions Jennyfer Carcamo RN - 11/05/2019 3:00 PM PST Bevacizumab injection Brand Name: Avastin What is this medicine? BEVACIZUMAB (be va SIZ patricia mab) is a monoclonal antibody. It is used to treat many types of cancer. How should I use this medicine? This medicine is for infusion into a vein. It is given by a health wound care physician in a h ospital or clinic setting. Talk to your logistics coordinator regarding the use of this medicine in children. Special care may be needed. What side effects may I notice from receiving this medicine? Side effects that you should report to your doctor or health wound care physician as soon as p ossible: allergic reactions [...] attention (report to your doctor or health wound care physician if they continue or are bothersome): back pain changes in taste decreased appetite dry skin nausea tiredness What may interact with this medicine? Interactions are not expected. What if I miss a dose? It is important not to miss your dose. Call your doctor or health wound care physician if you are unable to keep an [...] for more information. Do not breast-feed an infant while taking th is medicine and for 6 months after the last dose. This medicine has caused ovarian failure in some women. This medicine may interfere with th e ability to have a child. You should talk to your doctor or health wound care physician if you are concerned about your fertility. [...] documented as of this encounter Progress Notes Jennyfer Carcamo RN - 11/05/2019 3:00 PM PSTPt here today for Avastin, Pt seen by provid er and cleared for treatment. Handling treatment well. Pt's orders/protocol verified, along with Ht and Wt rechecked, doses reverified, all with second RN (Bhakti ) before releasing t o Pharmacy. Labs within parameters for treatment including creatine clearance ratio, VSS Distress Survey completed. Pt tolerated tx well. Reinforced calling for any concerns or questions. Discharged to [facility] with copy of labs and calendar for next appointment: 26 of November 2:15 PM: IVT LAB DRAW with CATRACHITO BOO SS LAB DRAW in [facility] HO INFUSION SUPPORT SERVICES 3:00 PM: Office Visit Extended Appointment starts at 3:15 PM with CIERRA Hartley in [facility] HEMATOLOGY AND ONCOLOGY 4:00 PM: Onc Infusion with JAZZY CHAIR 14 in [facility] HEMATOLOGY AND ONCOLOGY INFUSIONS documented [...] [place] | | | | | | [address] | | | | | | | | +--------+ + + + + | 12/17/ | Office | Oncology | Yancy Clifford MD | | | 2019 | Visit | | [address] | | | | | | [place] | | | | | | [address] | | | | | | | | +--------+ + + + + | 12/17/ | Appointment | Infusion Therapy | Yancy Clifford MD | | | 2019 | | | [address] | | | | | | [place] | | | | | | [address] | | | | | | | | +--------+ + + + + | 01/07/ | Appointment | Infusion Therapy | Yancy Clifford MD | | | 2019 | | | [address] | | | | | | [place] | | | | | | [address] | | | | | | | | +--------+ + + + + | 01/07/ | Office | Oncology | Yancy Clifford MD | | | 2019 | Visit | | [address] | | | | | | [place] | | | | | | [address] | | | | | | | | +--------+ + + + + | 01/07/ | Appointment | Infusion Therapy | Yancy Clifford MD | | | 2019 | | | [address] | | | | | | [place] | | | | | | [address] | | | | | | | [...] (AVASTIN) 1,300 mg | New Bag | 11/05/20 | 1,300 mg | 304 | | | in sodium chloride 0.9% 152 mL | | 19 3:58 | | mL/hr | | | infusion 1,300 mg (rounded from | | PM PST | | | | | 1,282.5 mg = 15 mg/kg | | | | | | | 85.5 kg Treatment plan recorded | | | | | | | weight), Intravenous, Administer | | | | | | | over 30 Minutes, ONCE, Teresa | | | | | | | 11/05/19 at 1550, For 1 dose | | | | | | + +---------+ + +-------+------+ +---+---+ | | | +---+---+ + +---------+ +---------+ +---+ | sodium chloride 0.9% (NS) bolus | New Bag | 11/05/20 | 250 mLs | 30 mL/hr | | | 250 mL 250 mL, Intravenous, | | 19 3:48 | | | | | PRN, Flush before and after IV | | PM PST | | | | | medication(s) and as needed with | | | | | | | NS, Starting Teresa 11/05/19 at 1519 | | | | | | + +---------+ +---------+ +---+ +---+---+ | | | +---+---+ documented in this encounter"
--- OUTSIDE RECORDS SUMMARY | ~2019-12-08 | XMS | Encounter Summary ---
Demographics + + + | Address | [address] | | | [place] [address] | + + + | Home Phone | | + + + | Preferred Language | Unknown | + + + | Marital Status | | + + + | Jehovah'S Witness Affiliation | Unknown | + + + | Race | Unknown | + + + | Ethnic Group | Unknown | + + + Author + + + | Author | [facility] | | | and [place] | + + + | Organization | [facility] | | | [...] | | | | [place] [address] | | + + + + + | Emory Larios | ECON | Unknown | | + + + + + Care Team Providers + +------+ + | Care Spreading Machine Operator Name | Role | Phone | + [...] | | | Ascites, | [place], | [place] [address] | | | | | malignant | [place] [address] | Phone: | | | | | Procedures | Phone: | [phone] | | | | | [place] | [phone] | Fax: | | | | | BEVACIZUMAB | Fax: | [phone] | | | | | INJECTION, | [phone] | | | | | | 10 MG [id number] | | | | | | | - [place] | | | | | | | [...] + + | 11/05/ | Hospital | [facility] | Yancy Clifford MD | Malignant neoplasm | | 2019 | Encounter | HEMATOLOGY AND | [address] | of left ovary (HCC) | | | | ONCOLOGY INFUSIONS | [place] | (Primary Dx); | | | | [address] | [id number] | Ascites, malignant | | | | [address]VE [place], [place] | | | | | | [address] | Jennyfer Carcamo, | | | | | [phone] | RN | | +--------+ + + [...] vein. It is given by a health respite care provider in a h ospital or clinic setting. Talk to your distribution operation supervisor regarding the use of this medicine in children. Special care may be needed. What side effects may I notice from receiving this medicine? Side effects that you should report to your doctor or health respite care provider as soon as p ossible: allergic reactions [...] attention (report to your doctor or health respite care provider if they continue or are bothersome): back pain changes in taste decreased appetite dry skin nausea tiredness What may interact with this medicine? Interactions are not expected. What if I miss a dose? It is important not to miss your dose. Call your doctor or health respite care provider if you are unable to keep an [...] should talk to your doctor or health respite care provider if you are concerned about your fertility. [...] for any concerns or questions. Discharged to [facility] with copy of labs and calendar for next appointment: 26 of November 2:15 PM: IVT LAB DRAW with CATRACHITO BOO SS LAB DRAW in [facility] HO INFUSION SUPPORT SERVICES 3:00 PM: Office Visit Extended Appointment starts at 3:15 PM with CIERRA Hartley in [facility] HEMATOLOGY AND ONCOLOGY 4:00 PM: Onc Infusion with JAZZY CHAIR 14 in [facility] HEMATOLOGY AND ONCOLOGY INFUSIONS documented in [...] [place] | | | | | | [address] | | | | | | | | +--------+ + + + + | 12/17/ | Office | Oncology | Yancy Clifford MD | | | 2019 | Visit | | [address] | | | | | | [place] | | | | | | [address] | | | | | | | | +--------+ + + + + | 12/17/ | Appointment | Infusion Therapy | Yancy Clifford MD | | | 2019 | | | [address] | | | | | | [place] | | | | | | [address] | | | | | | | | +--------+ + + + + | 01/07/ | Appointment | Infusion Therapy | Yancy Clifford MD | | | 2019 | | | [address] | | | | | | [place] | | | | | | [address] | | | | | | | | +--------+ + + + + | 01/07/ | Office | Oncology | Yancy Clifford MD | | | 2019 | Visit | | [address] | | | | | | [place] | | | | | | [address] | | | | | | | | +--------+ + + + + | 01/07/ | Appointment | Infusion Therapy | Yancy Clifford MD | | | 2019 | | | [address] | | | | | | [place] | | | | | | [address] | | | | | | | [...]
--- OUTSIDE RECORDS SUMMARY | ~2019-12-08 | XMS | Encounter Summary ---
Demographics + + + | Address | [address] | | | [place] [address] | + + + | Home Phone | | + + + | Preferred Language | Unknown | + + + | Marital Status | | + + + | Episcopal Affiliation | Unknown | + + + | Race | Unknown | + + + | Ethnic Group | Unknown | + + + Author + + + | Author | [facility] | | | and [place] | + + + | Organization | [facility] | | | and [place] | + + + | Address | Unknown | + + + | Phone | Unavailable | + + + Support + + + + + | Name | Relationship | Address | Phone | + + + + + | Jared Easonrick | ECON | [address] | | | | | [place] [address] | | + + + + + | Emory Larios | ECON | Unknown | | + + + + + Care Team Providers + +------+ + | Care Heel Packer Name | Role | Phone | + +------+ + PCP | Unavailable | + +------+ + Encounter Details +--------+ + + + + | Date | Type | Department | Care Team | Description | +--------+ + + + + | 06/05/ | Hospital | [facility] | Conversion | Encounter for | | 2019 | Encounter | [facility] [address] | Transaction, | antineoplastic | | | | [address] | Provider Unknown | chemotherapy; | | | | [place], [place] | [phone] | Malignant neoplasm | | | | [address] | | of left ovary (HCC); | | | | [phone] | Yancy Clifford MD [address] | | | [address] | Chemotherapy-induced | | | | | [place] [address] | thrombocytopenia; | | | | | [phone] | Epistaxis | | | | | | | [...] + + + +---------+ + + | aspirin 81 MG | Take 81 mg by mouth | | 0 | 05/13/20 | | | tablet | daily. | | | 19 | 9 | + + + +---------+ + + [...] | | | 2019 | | | [address] | | | | | | [place] | | | | | | [address] | | | | | | | | +--------+ + + + + | 12/17/ | Office | Oncology | Yancy Clifford MD | | | 2019 | Visit | | [address] | | | | | | [place] | | | | | | [address] | | | | | | | | +--------+ + + + + | 12/17/ | Appointment | Infusion Therapy | Yancy Clifford MD | | | 2019 | | | [address] | | | | | | [place] | | | | | | [address] | | | | | | | | +--------+ + + + + | 01/07/ | Appointment | Infusion Therapy | Yancy Clifford MD | | | 2019 | | | [address] | | | | | | [place] | | | | | | [address] | | | | | | | | +--------+ + + + + | 01/07/ | Office | Oncology | Yancy Clifford MD | | | 2019 | Visit | | [address] | | | | | | [place] | | | | | | [address] | | | | | | | | +--------+ + + + + | 01/07/ | Appointment | Infusion Therapy | Yancy Clifford MD | | | 2020 | | | [address] | | | | | | [place] | | | | | | [address] | | | | | | | | +--------+ + + + + documented as of this encounter Procedures + +--------+ + + + | Procedure Name | Priori | Date/Time | Associated Diagnosis | Comments | | | ty | | | | + +--------+ + + + | CT CHEST ABDOMEN | Routin | 06/05/2019 | | Results for this | | PELVIS W CONTRAST | e | 1:07 PM | | procedure are in the | | | | PDT | | results section. | + +--------+ + + + documented in this encounter Results CT Chest Abdomen Pelvis w Contrast (06/05/2019 1:07 PM PDT) + + | Specimen | + + | | + + + + + | Impressions | Performed At | + + + | 1. Improvement as compared to the prior exam. The metastatic | | | adenopathy seen at the retroperitoneum and pelvis is significantly | | | improved. There is no residual enlarged nodes. 2. The left adnexal | | | mass is significantly decreased in size as compared to the prior | | | exam. The right ovarian cystic mass seen on the prior exam is | | | similar in size. 3. Small left pleural effusion. Mild left basilar | | | atelectasis. 4. The nodule anterior to the inferior pelvic wall is | | | slightly smaller as compared to the prior exam, currently measuring 1 | | | x 0.9 cm, prior measurement 1.3 x 1.2 cm. Signed by: Catracho Bravo, | | | Dell Sign Date/Time: 06/05/2019 4:12 PM | | + + + + + + | Narrative | Performed At | + + + | CT CHEST ABDOMEN AND PELVIS WITH CONTRAST CLINICAL INFORMATION: | | | Recurrent ovarian cancer on chemo, follow the response COMPARISON: | | | CT CHEST ABDOMEN PELVIS W CONTRAST (01/01/2019); PROCEDURE: Axial | | | images through the chest, abdomen and pelvis after the administration | | | of 100 ml Omnipaque 350 intravenous contrast. Multiplanar | | | reconstructions. At least one of the following CT dose optimization | | | techniques were used: Automated exposure control; Adjustment of mA | | | and/or kV according to patient size; Use of iterative reconstruction | | | technique. FINDINGS: CHEST Lungs, Pleura and Airways: Platelike | | | atelectasis of the left upper lobe. Small left pleural effusion. | | | Mild left basilar atelectasis. Mediastinum: No significant | | | pericardial, great vessel or esophageal abnormality. No mediastinal | | | mass. Lymph Nodes: No axillary adenopathy. Right MediPort catheter | | | in expected position. Thyroid gland is normal. ABDOMEN Liver and | | | Biliary: No gallbladder or biliary abnormality. No significant liver | | | abnormality. Pancreas, Spleen and Adrenals: Right adrenal gland is | | | similar in size as compared to the prior exam, may represent | | | underlying adenoma. There is nonspecific left adrenal thickening as | | | well, also unchanged. Kidneys: No hydronephrosis. Unchanged cyst | | | at the right kidney inferior pole (601/43) measuring 1.7 cm. ABDOMEN | | | AND PELVIS Bowel: No small bowel or colonic dilation or adjacent | | | inflammation. No appendiceal dilation or inflammation. Vessels: No | | | significant abnormality in the aorta or its proximal branches. No | | | significant abnormality in the portal veins, mesenteric veins or | | | systemic veins. Lymph Nodes: Retroperitoneal adenopathy is | | | significantly improved as compared to the prior examination. No | | | residual large nodes of the retroperitoneum. Adenopathy of the | | | pelvis is also significantly improved with no residual large nodes. | | | The largest residual node of the pelvis is seen at the right | | | external iliac region measuring 0.7 cm in short axis dimension, | | | decreased in size as compared to the prior exam when it measured 1.1 | | | cm (2/217). Peritoneum and Retroperitoneum: No intraperitoneal free | | | air, ascites or peritoneal mass. No significant retroperitoneal | | | abnormality. Anterior abdominal wall fat containing hernia, unchanged | | | from the prior exam. The anterior abdominal wall defect measures | | | approximately 0.7 cm. Anterior abdominal wall hernia inferiorly is | | | unchanged from the prior exam, anterior abdominal wall defect | | | measures 2.5 cm and the hernia sac contains bowel loops. No small | | | bowel obstruction. The nodule anterior to the inferior pelvic wall is | | | slightly smaller as compared to the prior exam, currently measuring | | | 1 x 0.9 cm, prior measurement 1.3 x 1.2 cm PELVIS Genitourinary: | | | Right ovarian cystic mass measuring 4.5 x 3.5 cm, similar to the | | | prior examination when it measured 4.5 x 3.8 cm. Left adnexal mass | | | is significantly smaller as compared to the prior exam, currently | | | measuring 1.5 x 2.5 cm, prior measurement 5.2 x 4.3 cm. (01/22). BODY | | | WALL Soft Tissues: No bowel or inflamed fat containing hernia, mass | | | or hemorrhage. Bones: Sclerosis of the bilateral sacroiliac joints. | | | Moderate to advanced facet joint arthropathy at the lower lumbar | | | spine. Moderate to advanced degeneration at the L1-L2 level with disc | | | height loss and endplate sclerosis. | | + + + + + | Procedure Note | + + | Chi, Rad Conversion - 07/14/2019 10:[address] CHEST ABDOMEN AND PELVIS WITH | | CONTRASTCLINICAL INFORMATION:Recurrent ovarian cancer on chemo, follow the | | responseCOMPARISON:CT CHEST ABDOMEN PELVIS W CONTRAST (01/01/2019);PROCEDURE:Axial images | | through the chest, abdomen and pelvis after theadministration of 100 ml Omnipaque 350 | | intravenous contrast.Multiplanar reconstructions.At least one of the following CT dose | | optimization techniques wereused: Automated exposure control; Adjustment of mA and/or kV | | accordingto patient size; Use of iterative reconstruction | | technique.FINDINGS:CHESTLungs, Pleura and Airways: Platelike atelectasis of the left | | upperlobe. Small left pleural effusion. Mild left basilar atelectasis.Mediastinum: No | | significant pericardial, great vessel or esophagealabnormality. No mediastinal | | mass.Lymph Nodes: No axillary adenopathy.Right MediPort catheter in expected | | position.Thyroid gland is normal.ABDOMENLiver and Biliary: No gallbladder or biliary | | abnormality. Nosignificant liver abnormality.Pancreas, Spleen and Adrenals: Right | | adrenal gland is similar in sizeas compared to the prior exam, may represent underlying | | adenoma. Thereis nonspecific left adrenal thickening as well, also unchanged.Kidneys: | | No hydronephrosis. Unchanged cyst at the right kidneyinferior pole (601/43) measuring | | 1.7 cm.ABDOMEN AND PELVISBowel: No small bowel or colonic dilation or adjacent | | inflammation. Noappendiceal dilation or inflammation.Vessels: No significant abnormality | | in the aorta or its proximalbranches. No significant abnormality in the portal veins, | | mesentericveins or systemic veins.Lymph Nodes: Retroperitoneal adenopathy is | | significantly improved ascompared to the prior examination. No residual large nodes of | | theretroperitoneum. Adenopathy of the pelvis is also significantlyimproved with no | | residual large nodes. The largest residual node ofthe pelvis is seen at the right | | external iliac region measuring 0.7 cmin short axis dimension, decreased in size as | | compared to the priorexam when it measured 1.1 cm (2/217).Peritoneum and | | Retroperitoneum: No intraperitoneal free air, ascites orperitoneal mass. No significant | | retroperitoneal abnormality.Anterior abdominal wall fat containing hernia, unchanged | | from the priorexam. The anterior abdominal wall defect measures approximately 0.7 | | cm.Anterior abdominal wall hernia inferiorly is unchanged from the priorexam, anterior | | abdominal wall defect measures 2.5 cm and the hernia saccontains bowel loops. No small | | bowel obstruction.The nodule anterior to the inferior pelvic wall is slightly smaller | | ascompared to the prior exam, currently measuring 1 x 0.9 cm, priormeasurement 1.3 x 1.2 | | cmPELVISGenitourinary: Right ovarian cystic mass measuring 4.5 x 3.5 cm,similar to the | | prior examination when it measured 4.5 x 3.8 cm. Leftadnexal mass is significantly | | smaller as compared to the prior exam,currently measuring 1.5 x 2.5 cm, prior | | measurement 5.2 x 4.3 cm.(01/22).BODY WALLSoft Tissues: No bowel or inflamed fat | | containing hernia, mass orhemorrhage.Bones: Sclerosis of the bilateral sacroiliac | | joints. Moderate toadvanced facet joint arthropathy at the lower lumbar spine.Moderate | | to advanced degeneration at the L1-L2 level with disc heightloss and endplate | | sclerosis.IMPRESSION: 1. Improvement as compared to the prior exam. The | | metastaticadenopathy seen at the retroperitoneum and pelvis is significantlyimproved. | | There is no residual enlarged nodes.2. The left adnexal mass is significantly decreased | | in size as comparedto the prior exam. The right ovarian cystic mass seen on the | | priorexam is similar in size.3. Small left pleural effusion. Mild left basilar | | atelectasis.4. The nodule anterior to the inferior pelvic wall is slightly smalleras | | compared to the prior exam, currently measuring 1 x 0.9 cm, priormeasurement 1.3 x 1.2 | | cm.Signed by: Catracho Bravo, IsaacSign Date/Time: 06/05/2019 4:12 PM | |exam, anterior abdominal wall defect measures 2.5 cm and the hernia sac | |contains bowel loops. No small bowel obstruction. | |The nodule anterior to the inferior pelvic wall is slightly smaller as | |compared to the prior exam, currently measuring 1 x 0.9 cm, prior | |measurement 1.3 x 1.2 cm | |PELVIS | |Genitourinary: Right ovarian cystic mass measuring 4.5 x 3.5 cm, | |similar to the prior examination when it measured 4.5 x 3.8 cm. Left | |adnexal mass is significantly smaller as compared to the prior exam, | |currently measuring 1.5 x 2.5 cm, prior measurement 5.2 x 4.3 cm. | |(01/22). | |BODY WALL | |Soft Tissues: No bowel or inflamed fat containing hernia, mass or | |hemorrhage. | |Bones: Sclerosis of the bilateral sacroiliac joints. Moderate to | |advanced facet joint arthropathy at the lower lumbar spine. | |Moderate to advanced degeneration at the L1-L2 level with disc height | |loss and endplate sclerosis. | |IMPRESSION: | |1. Improvement as compared to the prior exam. The metastatic | |adenopathy seen at the retroperitoneum and pelvis is significantly | |improved. There is no residual enlarged nodes. | |2. The left adnexal mass is significantly decreased in size as compared | |to the prior exam. The right ovarian cystic mass seen on the prior | |exam is similar in size. | |3. Small left pleural effusion. Mild left basilar atelectasis. | |4. The nodule anterior to the inferior pelvic wall is slightly smaller | |as compared to the prior exam, currently measuring 1 x 0.9 cm, prior | |measurement 1.3 x 1.2 cm. 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
--- OUTSIDE RECORDS SUMMARY | ~2019-12-08 | XMS | Encounter Summary ---
Demographics + + + | Address | [address] | | | [place] [address] | + + + | Home Phone | | + + + | Preferred Language | Unknown | + + + | Marital Status | | + + + | Nondenominational Affiliation | Unknown | + + + [...] | | | | [place] [address] | | + + + + + | Emory Larios | ECON | Unknown | | + + + + + Care Team Providers + +------+ + | Care Casino Slot Supervisor Name | Role | Phone | + +------+ + | Shannan Deng | PCP | | + +------+ + Reason for Referral Diagnostic/Screening (Urgent) +--------+--------+ + + + + | Status | Reason | Specialty | Diagnoses / | Referred By | Referred To | | | | | Procedures | Contact | Contact | +--------+--------+ + + + + | Closed | | Radiology | Diagnoses | Foster, | [facility] [address] | | | | | Malignant | Jennyfer M, | [address] | | | | | neoplasm of | STEEL MANAGER [address] | [place], [place] | | | | | left ovary | [address] | [address] | | | | | (HCC) | AVE | Phone: | | | | | Procedures | [place], | [phone] | | | | | CT Chest | [place] [address] | Fax: | | | | | Abdomen | Phone: | [phone] | | | | | Pelvis w | [phone] | | | | | | Contrast | Fax: | | | | | | | [phone] | | +--------+--------+ + + + + Reason for Visit + + + | Reason | Comments | + + + | Follow-up | Malignant neoplasm of left ovary | + + + Encounter Details +--------+---------+ + + + | Date | Type | Department | Care Team | Description | +--------+---------+ + + + | 10/15/ | Office | [facility] | Yancy Clifford MD | Malignant neoplasm | | 2019 | Visit | HEMATOLOGY AND | [address] | of left ovary (HCC) | | | | ONCOLOGY [address] | [place] | (Primary Dx) | | | | [address] | [address] | | | | | [place] | | | | | | [address] | Jennyfer Calvert | | | | | [phone] | CIERRA Lou [address] | | | | | | [address] | | | | | | [place] [address] | | | | | | [phone] | | | | | | | [...] + + + | Blood Pressure | - | - | | + + + + + | Pulse | - | - | | + + + + + | Temperature | - | - | | + + + + + | Respiratory Rate | - | - | | + + + + + | Oxygen Saturation | - | - | | + + + + + | Inhaled Oxygen | - | - | | | Concentration | | | | + + + + + | Weight | 84.9 kg (187 lb 1.3 | 10/15/2019 9:36 AM | | | | oz) | PST | | + + + + + | Height | 162.6 cm (5' 4.02") | 10/15/2019 9:35 AM | | | | | PST | | + + + + + | Body Mass Index | 32.1 | 10/15/2019 9:35 AM | | | | | PST | | + + + + + documented in this encounter Progress Notes Jennyfer Calvert ARNP - 10/15/2019 9:45 AM PSTFormatting of this note might be differ ent from the original. [facility] Hematology & Oncology Oncology Progress Note Patient [...] 05/2017 Genetic Testing Negative genetic testing through [employer]. 07/2017 Surgery S/p debulking surgery. Final pathology [...] Ramila is here today accompanied by her in follow-up for ovarian cancer and ernestina pena for maintenance Avastin. She states that today she is feeling well. She reports that he r and her are recovering from a recent cold. She denies fevers or chills. She dianne es chest pain, shortness of breath or new cough. She denies abdominal pain nausea or change s in bowel or bladder function. she has no other complaints or symptoms other than mentioned in the ROS. Medical History Allergies Allergen Reactions Codeine Nausea [...] 11 Highest education level: Not on file Occupational History Not on file Social Needs Financial resource strain: Not on file Food insecurity: Worry: Not on file Inability: Not on file Transportation needs: Medical: Not on file Non-medical: Not on file Tobacco Use Smoking status: Current Every Day Smoker Packs/day: 0.50 Smokeless tobacco: Never Used Substance and Sexual Activity Alcohol use: Not Currently Drug use: Not Currently Comment: Drug use: No Sexual activity: Not on file Lifestyle Physical activity: Days per week: Not on file Minutes per session: Not on file Stress: Not on file Relationships Social connections: Talks on phone: Not on file Gets together: Not on file Attends judaism service: Not on file Active member of club or organization: Not on file Attends meetings of clubs or organizations: Not on file Relationship status: Not on file Intimate partner violence: Fear of current or ex partner: Not on file Emotionally abused: Not on file Physically abused: Not on file Forced sexual activity: Not on file Other Topics Concern Not on file Social History Narrative Not on file Patient's medical history above reviewed and updated on 10/15/2019 Medications Current Outpatient Medications Medication Sig Dispense Refill albuterol (PROVENTIL HFA) 90 mcg/puff inhaler Inhale 2 puffs into the lungs every 4 (fo ur) hours as needed for Wheezing. fluticasone (FLONASE) 50 mcg/nasal spray 1 spray by Nasal route. lactulose 10 g/15 mL solution Take 15 mLs by mouth every 2 hours as needed. 240 mL 3 loratadine (CLARITIN) 10 mg tablet Take 10 mg by mouth daily. lovastatin (MEVACOR) 20 mg tablet Take 20 mg by mouth nightly. ondansetron (ZOFRAN) 8 MG tablet Take 8 mg by mouth every 8 (eight) hours as needed for Nausea. polyethylene glycol (MIRALAX) packet Take 17 g by mouth daily. prochlorperazine 10 mg tablet Take 1 tablet by mouth every 6 (six) hours as needed. 30 tablet 3 No current facility-administered medications for this visit. Medications reviewed and updated on 10/15/2019 Review of Systems Review of Systems Constitutional: Negative for chills, fatigue and fever. HENT: Negative for nosebleeds, sinus pressure, sinus pain and sore throat. Eyes: Negative. Respiratory: Negative for cough and shortness of breath. Cardiovascular: Negative for chest pain, palpitations and leg swelling. Gastrointestinal: Negative for abdominal pain, constipation, diarrhea, nausea and vomiting. Genitourinary: Negative for difficulty urinating. Musculoskeletal: Negative for arthralgias and back pain. Skin: Negative. Neurological: Negative for dizziness, light-headedness, numbness and headaches. Hematological: Negative for adenopathy. Does not bruise/bleed easily. Physical Exam BP (P) 128/62 | Pulse (P) 93 | Temp (P) 37 C (98.6 F) (Tympanic) | Ht 1.626 m (5' 4. 02") | Wt 84.9 kg (187 lb 1.3 oz) | SpO2 (P) 98% | BMI 32.10 kg/m ECO Physical Exam Vitals signs reviewed. Constitutional: General: She is not in acute distress. Appearance: She is not ill-appearing. HENT: Mouth/Throat: Mouth: Mucous membranes are moist. Pharynx: Oropharynx is clear. No oropharyngeal exudate or posterior oropharyngeal erythe ma. Eyes: General: No scleral icterus. Pupils: Pupils are equal, round, and reactive to light. Neck: Musculoskeletal: Neck supple. Cardiovascular: Rate and Rhythm: Normal rate and regular rhythm. Heart sounds: Normal heart sounds. Pulmonary: Effort: Pulmonary effort is normal. Breath sounds: Normal breath sounds. No wheezing. Abdominal: General: Bowel sounds are normal. There is no distension. Palpations: Abdomen is soft. There is no hepatomegaly or splenomegaly. Tenderness: There is no tenderness. There is no right CVA tenderness or left CVA tendern ess. Comments: Exam is limited due to body habitus Musculoskeletal: Normal range of motion. Right lower leg: No edema. Left lower leg: No edema. Lymphadenopathy: Cervical: No cervical adenopathy. Upper Body: Right upper body: No supraclavicular or axillary adenopathy. Left upper body: No supraclavicular or axillary adenopathy. Skin: General: Skin is warm and dry. Neurological: Mental Status: She is alert and oriented to person, place, and time. Labs and Imaging Orders Only on 10/15/2019 Component Date Value Ref Range Status CA125 10/15/2019 34.5 0 - 35 U/mL Final Comment: THE [employer] ([employer]) ADVIA 20x200AUR IMMUNOASSAY METHOD IS USED. RESULTS OBTAINED WITH DIFFERENT ASSAY METHODS OR KITS CANNOT BE USED INTERCHANGEABLY. Testing performed at [facility];[address] [place] [address];[place] [address] Color, UA 10/15/2019 YELLOW Final Clarity, UA 10/15/2019 HAZY Final Specific [place], Urine 10/15/2019 1.025 1.002 - 1.030 Final Leukocyte esterase, UA 10/15/2019 NEGATIVE NEG Final Nitrite, UA 10/15/2019 NEGATIVE NEG Final Urobilinogen, Ur 10/15/2019 0.2 <1.1 mg/dL Final Protein, Urine (mg/dL) 10/15/2019 100* NEG mg/dL Final pH, Urine 10/15/2019 5.5 5.0 - 8.0 Final Blood, UA 10/15/2019 NEGATIVE NEG Final Ketones, UA 10/15/2019 NEGATIVE NEG mg/dL Final Bilirubin, UA 10/15/2019 NEGATIVE NEG Final Glucose, Ur 10/15/2019 NEGATIVE NEG mg/dL Final Testing Performed at [facility], [address], [address], [place] [address] Na 10/15/2019 138 135 - 145 mmol/L Final Testing performed at [facility];[address] [place] [address];[place] [address] K 10/15/2019 4.3 3.5 - 4.9 mmol/L Final Testing performed at [facility];[address] [place] [address];[place] [address] Cl 10/15/2019 105 99 - 109 mmol/L Final Testing performed at [facility];[address] [place] [address];[place] [address] CO2 10/15/2019 26 23 - 32 mmol/L Final Testing Performed at [facility], [address], [address], [place] [address] Anion Gap 10/15/2019 11 5 - 20 mmol/L Final Testing performed at [facility];[address] [facility];[place] [address] Glucose 10/15/2019 145* 65 - 99 mg/dL Final BUN 10/15/2019 13 8 - 25 mg/dL Final Creatinine 10/15/2019 0.77 0.50 - 1.00 mg/dL Final BUN/Creatinine Ratio 10/15/2019 17 Final Calcium 10/15/2019 9.4 8.5 - 10.5 mg/dL Final Protein, Total 10/15/2019 7.1 6.3 - 8.2 g/dL Final Albumin 10/15/2019 3.8 3.3 - 4.8 g/dL Final Globulin 10/15/2019 3.3 1.3 - 4.9 g/dL Final A/G Ratio 10/15/2019 1.2 1.0 - 2.4 Final BILIRUBIN, TOTAL 10/15/2019 0.5 0.1 - 1.5 mg/dL Final ALK PHOS 10/15/2019 66 35 - 115 U/L Final AST 10/15/2019 12 10 - 45 U/L Final ALT 10/15/2019 13 10 - 65 U/L Final Estimated GFR 10/15/2019 >60 >60 mL/min/1.73m2 Final Comment: GFR <60: CHRONIC KIDNEY DISEASE, IF FOUND OVER A 3 MONTH PERIOD. GFR <15: KIDNEY FAILURE. FOR AMERICANS, MULTIPLY THE CALCULATED GFR BY 1.210. This eGFR is calculated using the MDRD IDMS traceable equation. Testing Performed at [facility], [address], [address], [place] [address] WBC 10/15/2019 7.27 3.80 - 11.00 K/uL Final RBC 10/15/2019 5.07 3.70 - 5.10 M/uL Final Hemoglobin 10/15/2019 15.0 11.3 - 15.5 g/dL Final Hematocrit 10/15/2019 45.0 34.0 - 46.0 % Final MCV 10/15/2019 88.8 80.0 - 100.0 fl Final MCH 10/15/2019 29.6 27.0 - 34.0 pg Final MCHC 10/15/2019 33.4 32.0 - 35.5 g/dL Final RDW-SD 10/15/2019 56.4* 37 - 53 fl Final Platelet Count 10/15/2019 216 150 - 400 K/uL Final MPV 10/15/2019 7.1 fl Final Diff Type 10/15/2019 AUTOMATED Final % Neutrophils 10/15/2019 64.63 % Final % Lymphocytes 10/15/2019 28.04 % Final Monocyte % 10/15/2019 5.24 % Final Eosinophils % 10/15/2019 1.18 % Final Basophils % 10/15/2019 0.91 % Final Neutrophils, Absolute 10/15/2019 4.70 1.90 - 7.40 K/uL Final Absolute Lymphocytes 10/15/2019 2.04 1.00 - 3.90 K/uL Final Absolute Monocytes 10/15/2019 0.38 0.00 - 0.80 K/uL Final Eosinophils, Absolute 10/15/2019 0.09 0.00 - 0.50 K/uL Final Basophils, Absolute 10/15/2019 0.07 0.00 - 0.10 K/uL Final Testing Performed at [facility], [address], [address], [place] [address] PRO/CREA RATIO,URINE 10/15/2019 0.508 Final Testing performed at [facility];[address] [place] [address];[place] [address] Creatinine, random urine 10/15/2019 120.0 mg/dL Final Comment: NO NORMAL RANGE ESTABLISHED Testing performed at [facility];[address] [place] [address];[place] [address] Protein, Urine 10/15/2019 61 mg/dL Final Comment: NO NORMAL RANGE ESTABLISHED Testing performed at [facility];[address] [place] [address];[place] [address] WBC UA 10/15/2019 NONE SEEN 0 - 5 /hpf Final RBC UA 10/15/2019 NONE SEEN 0 - 5 /hpf Final SQUAMOUS EPITHELIAL UA 10/15/2019 >100 /lpf Final BACTERIA UA 10/15/2019 NONE SEEN NONE Final MUCUS UA 10/15/2019 1+ Final CASTS 10/15/2019 0-2 /lpf Final Comment: COARSE GRANULAR Testing Performed at [facility], [address], [address], [place] [address] No results found. Assessment Ms. Ramila Baxter is a pleasant [...] She is currently on maintenance Avastin. she is tolerating the treatment well. Ca1 25 is 34.5 increased from 11.8 on 08/13/2019. Th e review of systems, physical exam and lab results are otherwise appropriate. We will procee d with treatment today. We will obtain CT of the chest abdomen pelvis. The patient was educated regarding any symptoms of worsening disease. Plan At the end of today's discussion, the patient expressed understanding and willingness to pr oceed with the plan as outlined below: 1. Proceed with treatment today. 2. CT chest abdomen pelvis prior to next visit. 3. Follow-up in 3 weeks with labs prior. All the patient's questions were answered to her satisfaction. The patient is to call with any questions or concerns. 27 minutes were spent face to face with the patient. Over 50% of the time was spent in coun seling and coordination of care. CIERRA Hartley, MIKE [facility] Hematology Oncology 10/15/2019 Portions of this chart may have been [...] [place] | | | | | | [address] | | | | | | | | +--------+ + + + + | 12/17/ | Office | Oncology | Yancy Clifford MD | | | 2019 | Visit | | [address] | | | | | | [place] | | | | | | [address] | | | | | | | | +--------+ + + + + | 12/17/ | Appointment | Infusion Therapy | Yancy Clifford MD | | | 2019 | | | [address] | | | | | | [place] | | | | | | [address] | | | | | | | | +--------+ + + + + | 01/07/ | Appointment | Infusion Therapy | Yancy Clifford MD | | | 2019 | | | [address] | | | | | | [place] | | | | | | [address] | | | | | | | | +--------+ + + + + | 01/07/ | Office | Oncology | Yancy Clifford MD | | | 2019 | Visit | | [address] | | | | | | [place] | | | | | | [address] | | | | | | | | +--------+ + + + + | 01/07/ | Appointment | Infusion Therapy | Yancy Clifford MD | | | 2019 | | | [address] | | | | | | [place] | | | | | | [address] | | | | | | | | +--------+ + + + + documented as of this encounter Results CT Chest Abdomen Pelvis w Contrast (10/16/2019 [...]
--- OUTSIDE RECORDS SUMMARY | ~2019-12-08 | XMS | Encounter Summary ---
Demographics + + + | Address | [address] | | | [place] [address] | + + + | Home Phone | | + + + | Preferred Language | Unknown | + + + | Marital Status | | + + + | Latter Day Affiliation | Unknown | + + + [...] | | | | [place] [address] | | + + + + + | Eomry Larios | ECON | Unknown | | + + + + + Care Team Providers + +------+ + | Care Classified Advertising Clerk Name | Role | Phone | + +------+ + PCP | Unavailable | + +------+ + Encounter Details +--------+ + + + + | Date | Type | Department | Care Team | Description | +--------+ + + + + | 07/08/ | Hospital | [facility] | Conversion | Chronic deep vein | | 2018 | Encounter | [facility] | Transaction, | thrombosis (DVT) of | | | | ULTRASOUND [address] | Provider Unknown | other vein of right | | | | [address] | [phone] | upper extremity | | | | [place], [place] | | (HCC); Malignant | | | | [address] | Yancy Clifford MD [address] | neoplasm of both | | | | [phone] | [address] | ovaries (HCC) | | | | | [place] [address] | | | | | | [phone] | | | | | | | [...] Gardenia Seo CMA Service: (none) Author Type: Banking Services Officer Filed: 07/30/18 7950 Date of Service: 07/08/182358 Status: Signed Financial Compliance Officer: Gardenia Seo CMA (Banking Services Officer) Message informed to patient. docume nted in [...] [place] | | | | | | [address] | | | | | | | | +--------+ + + + + | 12/17/ | Office | Oncology | Yancy Clifford MD | | | 2019 | Visit | | [address] | | | | | | [place] | | | | | | [address] | | | | | | | | +--------+ + + + + | 12/17/ | Appointment | Infusion Therapy | Yancy Clifford MD | | | 2019 | | | [address] | | | | | | [place] | | | | | | [address] | | | | | | | | +--------+ + + + + | 01/07/ | Appointment | Infusion Therapy | Yancy Clifford MD | | | 2019 | | | [address] | | | | | | [place] | | | | | | [address] | | | | | | | | +--------+ + + + + | 01/07/ | Office | Oncology | Yancy Clifford MD | | | 2019 | Visit | | [address] | | | | | | [place] | | | | | | [address] | | | | | | | | +--------+ + + + + | 01/07/ | Appointment | Infusion Therapy | Yancy Clifford MD | | | 2019 | | | [address] | | | | | | [place] | | | | | | [address] | | | | | | | [...]
--- OUTSIDE RECORDS SUMMARY | ~2019-12-08 | XMS | Encounter Summary ---
Demographics + + + | Address | [address] [place] [address] | | | [place] [address] | + + + | Home Phone | | + + + | Preferred Language | Unknown | + + + | Marital Status | | + + + | Yarsani Affiliation | Unknown | + + + | Race | Unknown | + + + | Ethnic Group | Unknown | + + + Author + + + | Author | [facility] | | | and [place] | + + + | Organization | [facility] | | [...] | | | | [place] [address] | | + + + + + | Emory Larios | ECON | Unknown | | + + + + + Care Team Providers + +------+ + | Care Pot Feeder Name | Role | Phone | + +------+ + | Shannan Deng | PCP | | + +------+ + Encounter Details +--------+ + + + + | Date | Type | Department | Care Team | Description | +--------+ + + + + | 12/25/ | Orders Only | [facility] | Yancy Clifford MD | | | 2019 | | HEMATOLOGY AND | [address] | | | | | ONCOLOGY [address] | [place] | | | | [address] | [address] | | | | | [place] | | | | | | [address] | | | | | | [phone] | | | +--------+ + + + [...] [place] | | | | | | [address] | | | | | | | | +--------+ + + + + | 12/17/ | Office | Oncology | Yancy Clifford MD | | | 2019 | Visit | | [address] | | | | | | [place] | | | | | | [address] | | | | | | | | +--------+ + + + + | 12/17/ | Appointment | Infusion Therapy | Yancy Clifford MD | | | 2019 | | | [address] | | | | | | [place] | | | | | | [address] | | | | | | | | +--------+ + + + + | 01/07/ | Appointment | Infusion Therapy | Yancy Clifford MD | | | 2019 | | | [address] | | | | | | [place] | | | | | | [address] | | | | | | | | +--------+ + + + + | 01/07/ | Office | Oncology | Yancy Clifford MD | | | 2019 | Visit | | [address] | | | | | | [place] | | | | | | [address] | | | | | | | | +--------+ + + + + | 01/07/ | Appointment | Infusion Therapy | Yancy Clifford MD | | | 2019 | | | [address] | | | | | | [place] | | | | | | [address] | | | | | | | | +--------+ + + + + documented as of this encounter Visit Diagnoses Not on filedocumented in this encounter"
--- OUTSIDE RECORDS SUMMARY | ~2019-12-08 | XMS | Encounter Summary ---
Demographics + + + | Address | [address] | | | [place] [address] | + + + | Home Phone | | + + + | Preferred Language | Unknown | + + + | Marital Status | | + + + | Taoism Affiliation | Unknown | + + + | Race | Unknown | + + + | Ethnic Group | Unknown | + + + Author + + + | Author | [facility] | | | and [place] | + + + | Organization | [facility] | | [...] | | | | [place] [address] | | + + + + + | Emory Larios | ECON | Unknown | | + + + + + Care Team Providers + +------+ + | Care Circular Sawyer Stone Name | Role | Phone | + +------+ + PCP | Unavailable | + +------+ + Encounter Details +--------+ + + + + | Date | Type | Department | Care Team | Description | +--------+ + + + + | 01/01/ | Hospital | [facility] | Conversion | Constipation, | | 2019 | Encounter | [facility] [address] | Transaction, | unspecified | | | | [address] | Provider Unknown | constipation type; | | | | [place], [place] | [phone] | Malignant neoplasm | | | | [address] | | of left ovary (HCC); | | | | [phone] | Yancy Clifford MD [address] | Pleural effusion, | | | | | [address] | malignant | | | | | [place] [address] | | | | | | [phone] | | | | | | | [...] [place] | | | | | | [address] | | | | | | | | +--------+ + + + + | 12/17/ | Office | Oncology | Yancy Clifford MD | | | 2019 | Visit | | [address] | | | | | | [place] | | | | | | [address] | | | | | | | | +--------+ + + + + | 12/17/ | Appointment | Infusion Therapy | Yancy Clifford MD | | | 2019 | | | [address] | | | | | | [place] | | | | | | [address] | | | | | | | | +--------+ + + + + | 01/07/ | Appointment | Infusion Therapy | Yancy Clifford MD | | | 2019 | | | [address] | | | | | | [place] | | | | | | [address] | | | | | | | | +--------+ + + + + | 01/07/ | Office | Oncology | Yancy Clifford MD | | | 2019 | Visit | | [address] | | | | | | [place] | | | | | | [address] | | | | | | | | +--------+ + + + + | 01/07/ | Appointment | Infusion Therapy | Yancy Clifford MD | | | 2019 | | | [address] | | | | | | [place] | | | | | | [address] | | | | | | | [...]
--- OUTSIDE RECORDS SUMMARY | ~2019-12-08 | XMS | Encounter Summary ---
Demographics + + + | Address | [address] | | | [place] [address] | + + + | Home Phone [...] | | | | [place] [address] | | + + + + + | Emory Larios | ECON | Unknown | | + + + + + Care Team Providers + +------+ + | Care Pharmacovigilance Safety Expert Name | Role | Phone | + +------+ + | Shannan Deng | PCP | | + +------+ + Reason for Visit + + + | Reason | Comments | + + + | Follow-up | | + + + Encounter Details +--------+---------+ + + + | Date | Type | Department | Care Team | Description | +--------+---------+ + + + | 11/05/ | Office | [facility] | Yancy Clifford MD | Malignant neoplasm | | 2019 | Visit | HEMATOLOGY AND | [address] | of left ovary (HCC) | | | | ONCOLOGY [address] | [place] | (Primary Dx); | [address] | [address] | [id number] | Peritoneal | | | | [place] | | carcinomatosis | | | | [id number] | | (HCC); Encounter for | | | | [phone] | | antineoplastic | | | | | | chemotherapy and | | | | | | immunotherapy | +--------+---------+ + + + Social History [...] encounter Progress Notes Yancy Clifford MD - 11/05/2019 2:30 PM PST ONCOLOGY FOLLOW-UP VISIT Patient ID: Elsy Baxter is a 59 y.o. female. Referring Provider: [...] 05/2017 Genetic Testing Negative genetic testing through [facility]. 07/2017 Surgery S/p debulking surgery. Final pathology [...] HPI: She feels well on today's visit. Chronic cough without any change. Denies any fever, chest pain, worsening SOB, abdominal pain, n/v. No change [...] use: Not Currently Comment: Drug use: No Family History Problem Relation Age of Onset [...] on file prior to visit. Objective: BP 120/82 | Pulse 96 | Temp 36.6 C (97.8 F) (Tympanic) | Resp 14 | Ht 1.626 m (5' 4 ") | Wt 84.9 kg (187 lb 1.3 oz) | SpO2 98% | BMI 32.11 kg/m Physical Exam Constitutional: General: She is not in acute distress. Neck: Musculoskeletal: Normal range of motion and neck supple. Cardiovascular: Rate and Rhythm: Normal rate and regular rhythm. Pulmonary: Breath sounds: Wheezing (at right lung field) present. Abdominal: General: Bowel sounds are normal. There is no distension. Palpations: Abdomen is soft. Tenderness: There is no tenderness. Hernia: A hernia is present. Neurological: Mental Status: She is alert and oriented to person, place, and time. Hospital Outpatient Visit on 11/05/2019 Component Date Value Ref Range Status Na 11/05/2019 139 135 - 145 mmol/L Final K 11/05/2019 4.3 3.5 - 4.9 mmol/L Final Cl 11/05/2019 108 99 - 109 mmol/L Final CO2 11/05/2019 26 23 - 32 mmol/L Final Anion Gap 11/05/2019 9 5 - 20 mmol/L Final Glucose 11/05/2019 117* 65 - 99 mg/dL Final BUN 11/05/2019 15 8 - 25 mg/dL Final Creatinine 11/05/2019 0.7 0.50 - 1.00 mg/dL Final BUN/Creatinine Ratio 11/05/2019 21 Final Calcium 11/05/2019 9.4 8.5 - 10.5 mg/dL Final Protein, Total 11/05/2019 8.5* 6.3 - 8.2 g/dL Final Albumin 11/05/2019 3.1* 3.3 - 4.8 g/dL Final Globulin 11/05/2019 5.4* 1.3 - 4.9 g/dL Final A/G Ratio 11/05/2019 0.6* 1.0 - 2.4 Final BILIRUBIN, TOTAL 11/05/2019 0.4 0.1 - 1.5 mg/dL Final ALK PHOS 11/05/2019 61 35 - 115 U/L Final AST 11/05/2019 11 10 - 45 U/L Final ALT 11/05/2019 17 10 - 65 U/L Final Estimated GFR 11/05/2019 >60 >60 mL/min/1.73m2 Final Comment: GFR <60: CHRONIC KIDNEY DISEASE, IF FOUND OVER A 3 MONTH PERIOD. GFR <15: KIDNEY FAILURE. FOR AMERICANS, MULTIPLY THE CALCULATED GFR BY 1.210. This eGFR is calculated using the MDRD IDMS traceable equation. Testing performed at [facility];[address];[place] [address] WBC 11/05/2019 7.80 3.80 - 11.00 K/uL Final RBC 11/05/2019 4.88 3.70 - 5.10 M/uL Final Hemoglobin 11/05/2019 14.6 11.3 - 15.5 g/dL Final Hematocrit 11/05/2019 43.2 34.0 - 46.0 % Final MCV 11/05/2019 88.6 80.0 - 100.0 fl Final MCH 11/05/2019 29.9 27.0 - 34.0 pg Final MCHC 11/05/2019 33.7 32.0 - 35.5 g/dL Final RDW-SD 11/05/2019 55.6* 37 - 53 fl Final Platelet Count 11/05/2019 208 150 - 400 K/uL Final MPV 11/05/2019 7.2 fl Final Diff Type 11/05/2019 AUTOMATED Final % Neutrophils 11/05/2019 62.72 % Final % Lymphocytes 11/05/2019 29.70 % Final Monocyte % 11/05/2019 5.66 % Final Eosinophils % 11/05/2019 1.60 % Final Basophils % 11/05/2019 0.32 % Final Neutrophils, Absolute 11/05/2019 4.89 1.90 - 7.40 K/uL Final Absolute Lymphocytes 11/05/2019 2.32 1.00 - 3.90 K/uL Final Absolute Monocytes 11/05/2019 0.44 0.00 - 0.80 K/uL Final Eosinophils, Absolute 11/05/2019 0.13 0.00 - 0.50 K/uL Final Basophils, Absolute 11/05/2019 0.03 0.00 - 0.10 K/uL Final Testing Performed at [facility], [address], [address], [place] [id number] PRO/CREA RATIO,URINE 11/05/2019 0.561 Final Testing performed at [facility];[address] [facility];[place] [id number] Color, UA 11/05/2019 YELLOW Final Clarity, UA 11/05/2019 CLEAR Final Specific [place], Urine 11/05/2019 1.025 1.002 - 1.030 Final Leukocyte esterase, UA 11/05/2019 NEGATIVE NEG Final Nitrite, UA 11/05/2019 NEGATIVE NEG Final Urobilinogen, Ur 11/05/2019 0.2 <1.1 mg/dL Final Protein, Urine (mg/dL) 11/05/2019 100* NEG mg/dL Final pH, Urine 11/05/2019 5.0 5.0 - 8.0 Final Blood, UA 11/05/2019 NEGATIVE NEG Final Ketones, UA 11/05/2019 NEGATIVE NEG mg/dL Final Bilirubin, UA 11/05/2019 NEGATIVE NEG Final Glucose, Ur 11/05/2019 NEGATIVE NEG mg/dL Final Testing Performed at [facility], [address], [address], [place] [address] Creatinine, random urine 11/05/2019 157.0 mg/dL Final Comment: NO NORMAL RANGE ESTABLISHED Testing performed at [facility];[address] [place] [address];[place] [address] Protein, Urine 11/05/2019 88 mg/dL Final Comment: NO NORMAL RANGE ESTABLISHED Testing performed at [facility];[address] [place] [address];[place] [address] WBC UA 11/05/2019 1-5 0 - 5 /hpf Final RBC UA 11/05/2019 0-2 0 - 5 /hpf Final SQUAMOUS EPITHELIAL UA 11/05/2019 50-100 /lpf Final BACTERIA UA 11/05/2019 2+* NONE Final MUCUS UA 11/05/2019 2+ Final CASTS 11/05/2019 1-5 /lpf Final Comment: HYALINE 0-2 FINE GRANULAR Testing Performed at [facility], [address] [facility] [address], [place] [address] Orders Only on 11/05/2019 Component Date Value Ref Range Status CA125 11/05/2019 44.6* 0 - 35 U/mL Final Comment: THE [employer]EMENS (FORMERLY ROGER) ADVIA CENTAUR IMMUNOASSAY METHOD IS USED. RESULTS OBTAINED WITH DIFFERENT ASSAY METHODS OR KITS CANNOT BE USED INTERCHANGEABLY. Testing performed at [facility];[address] [place] [address];[place] [address] Results for ELSY BAXTER ( ) as of 11/08/2019 20:33 Ref. Range 06/11/2019 13:33 07/02/2019 12:58 08/13/2019 08:46 10/15/2019 08:55 11/05/2019 13:17 CA-125 Latest Ref Range: 0 - 35 U/mL 17.8 11.9 11.8 34.5 44.6 (H) Imaging: Narrative & Impression CT CHEST ABDOMEN AND PELVIS WITH CONTRAST CLINICAL INFORMATION: Ovarian cancer, increase in CA125, evaluate for disease progression COMPARISON: CT CHEST ABDOMEN PELVIS W CONTRAST (06/05/2019); CT CHEST ABDOMEN PELVIS W CONTRAST (01/01/2019); PROCEDURE: Axial images through the chest, abdomen and pelvis after the administration of 100ml omnipaque 350 intravenous contrast. Multiplanar reconstructions. At least one of the following CT dose optimization techniques were used: Automated exposure control; Adjustment of mA and/or kV according to patient size; Use of iterative reconstruction technique. FINDINGS: CHEST Lungs, Pleura and Airways: No significant pulmonary abnormality. No airway narrowing or obstruction. No pleural effusion or pneumothorax. Mediastinum: No significant pericardial, great vessel or esophageal abnormality. No mediastinal mass. Lymph Nodes: No adenopathy. ABDOMEN Liver and Biliary: No gallbladder or biliary abnormality. No significant liver abnormality. Pancreas, Spleen and Adrenals: No pancreatic mass. No splenomegaly or splenic mass. No significant adrenal abnormality. Kidneys: No hydronephrosis, calculus or solid renal mass. ABDOMEN AND PELVIS Bowel: No small bowel or colonic dilation, inflammation or mass. Vessels: No significant abnormality in the aorta, its proximal branches or the iliac arteries. No significant abnormality in the portal veins, mesenteric veins or systemic veins. Lymph Nodes: Recurrent adenopathy in the pelvis and retroperitoneum present with mildly enlarged bilateral external iliac nodes as well as low left periaortic adenopathy. Measurements below. Left periaortic node, image 160, 1.1 cm, previously 0.5 cm Left external iliac node, image 214, 1.6 cm, previously 0.8 cm Peritoneum and Retroperitoneum: No generalized ascites or peritoneal nodules present. Left pelvic lymphocele again demonstrated. PELVIS Genitourinary: Urinary bladder decompressed. No free fluid in the pelvis. BODY WALL Soft Tissues: Midline ventral hernia again demonstrated containing a loop of nonobstructed small bowel. Previously noted nodularity along the inferior margin of the midline incision has been stable over each exam and almost certainly represents an area of scarring. Bones: No acute fracture or vertebral end plate destruction. No lytic or blastic lesion. IMPRESSION: Summary of Target Lesions: 1. Left periaortic node, image 160, 1.1 cm, previously 0.5 cm 2. Left external iliac node, image 214, 1.6 cm, previously 0.8 cm Comments: Recurrent disease and low retroperitoneal and bilateral pelvic lymph nodes. Signed by: Catracho Chinchilla Scott Sign Date/Time: 10/16/2019 2:47 PM Assessment: ECO 59 yo lady with 1. [...] She is tolerating the treatment very well. No sign of disease progression clinically. However, her CA125 is sl owly increasing since 10/2019. I have reviewed the CT result done in 10/2019 with her and he r . There may be slightly disease progression within the two pelvic lymph nodes. I roe ve recommended to continue the Avastin with close monitoring at this moment since she is com pletely asymptomatic. Will consider re-challenging the carboplatin if her disease continue to progress. Plan: 1. Proceed with Avastin. 2. Return in 3 weeks with lab. Greater than 25minutes were spent examining the patient, review of medical records, safety counselor ing, coordination of care, and CPOE. More than 50% of that time was spent in direct contact with the patient. [facility] Plan of Treatment +--------+ + + + + | Date | Type | Specialty | Care Team | Description | +--------+ + + + + | 12/17/ | Appointment | Infusion Therapy | Yancy Clifford MD | | | 2019 | | | [address] | | | | | | [place] | | | | | | [address] | | | | | | | | +--------+ + + + + | 12/17/ | Office | Oncology | Yancy Clifford MD | | | 2019 | Visit | | [address] | | | | | | [place] | | | | | | [address] | | | | | | | | +--------+ + + + + | 12/17/ | Appointment | Infusion Therapy | Yancy Clifford MD | | | 2019 | | | [address] | | | | | | [place] | | | | | | [address] | | | | | | | | +--------+ + + + + | 01/07/ | Appointment | Infusion Therapy | Yancy Clifford MD | | | 2019 | | | [address] | | | | | | [place] | | | | | | [address] | | | | | | | | +--------+ + + + + | 01/07/ | Office | Oncology | Yancy Clifford MD | | | 2019 | Visit | | [address] | | | | | | [place] | | | | | | [address] | | | | | | | | +--------+ + + + + | 01/07/ | Appointment | Infusion Therapy | Yancy Clifford MD | | | 2019 | | | [address] | | | | | | [place] | | | | | | [address] | | | | | | | | +--------+ + + + + documented as of this encounter Visit Diagnoses + + | Diagnosis | + + | 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 | + + | 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
--- OUTSIDE RECORDS SUMMARY | ~2019-12-08 | XMS | Encounter Summary ---
Demographics + + + | Address | [address] | | | [place] [address] | + + + | Home Phone | | + + + | Preferred Language | Unknown | + + + | Marital Status | | + + + | Episcopal Affiliation | Unknown | + + + | Race | Unknown | + + + | Ethnic Group | Unknown | + + + Author + + + | Author | [facility] | | | and [place] | + + + | Organization | [facility] | | | and [place] | + + + | Address | Unknown | + + + | Phone | Unavailable | + + + Support + + + + + | Name | Relationship | Address | Phone | + + + + + | Jared John | ECON | [address] | | | | | [place] [address] | | + + + + + | Emory Larios | EBENEZER | Unknown | | + + + + + Care Team Providers + +------+ + | Care Stage Hand Name | Role | Phone | + [...] | | | Ascites, | [place], | [place] [address] | | | | | malignant | [place] [address] | Phone: | | | | | Procedures | Phone: | [phone] | | | | | [place] | [phone] | Fax: | | | | | BEVACIZUMAB | Fax: | [phone] | | | | | INJECTION, | [phone] | | | | | | 10 MG [id number] | | | | | | | - [place] | | | | | | | [...] + + | 08/13/ | Hospital | [facility] | Yancy Clifford MD | Malignant neoplasm | | 2019 | Encounter | HEMATOLOGY AND | [address] | of left ovary (HCC) | | | | ONCOLOGY INFUSIONS | [place] | (Primary Dx); | | | | [address] | [address] | Ascites, malignant | | | | [address]VE [place] | | | | | | [address] | | | | | | [phone] | | | +--------+ + + + [...] of this encounter Discharge Instructions Patient Instructions Rosa Maria Reddy RN - 08/13/2019 11:46 AM PDT Bevacizumab injection Brand Name: Avastin What is this medicine? BEVACIZUMAB (be va SIZ patricia mab) is a monoclonal antibody. It is used to treat many types of cancer. How should I use this medicine? This medicine is for infusion into a vein. It is given by a health senior resident care director in a h ospital or clinic setting. Talk to your information technology coordinator regarding the use of this medicine in children. Special care may be needed. What side effects may I notice from receiving this medicine? Side effects that you should report to your doctor or health senior resident care director as soon as p ossible: allergic reactions [...] attention (report to your doctor or health senior resident care director if they continue or are bothersome): back pain changes in taste decreased appetite dry skin nausea tiredness What may interact with this medicine? Interactions are not expected. What if I miss a dose? It is important not to miss your dose. Call your doctor or health senior resident care director if you are unable to keep an [...] should talk to your doctor or health senior resident care director if you are concerned about your fertility. [...] 1 of every 21 day Bevacizumab after CYBER OPERATOR visit. Distress screening complet ed today at patients appointment with a 0 score. Copy of labs and calender given with next s cheduled appointment listed below. 09/03/2019 0745 - IVT LAB DRAW with CATRACHITO BOO SS LAB DRAW in [facility] HO INFUSION SUPPORT SERVICES 09/03/2019 0830 - Office Visit Extended appointment starts at 0845 with CIERRA Hartley in [facility] HEMATOLOGY AND ONCOLOGY 09/03/2019 0915 - Onc Infusion with [facility] 16 in [facility] HEMATOLOGY AND ONCOLOGY INFUSIONS documented in [...] [place] | | | | | | [address] | | | | | | | | +--------+ + + + + | 12/17/ | Office | Oncology | Yancy Clifford MD | | | 2019 | Visit | | [address] | | | | | | [place] | | | | | | [address] | | | | | | | | +--------+ + + + + | 12/17/ | Appointment | Infusion Therapy | Yancy Clifford MD | | | 2019 | | | [address] | | | | | | [place] | | | | | | [address] | | | | | | | | +--------+ + + + + | 01/07/ | Appointment | Infusion Therapy | Yancy Clifford MD | | | 2019 | | | [address] | | | | | | [place] | | | | | | [address] | | | | | | | | +--------+ + + + + | 01/07/ | Office | Oncology | Yancy Clifford MD | | | 2020 | Visit | | [address] | | | | | | [place] | | | | | | [address] | | | | | | | | +--------+ + + + + | 01/07/ | Appointment | Infusion Therapy | Yancy Clifford MD | | | 2020 | | | [address] | | | | | | [place] | | | | | | [address] | | | | | | | [...]
--- OUTSIDE RECORDS SUMMARY | ~2019-12-08 | XMS | Encounter Summary ---
Demographics + + + | Address | [address] | | | [place] [address] | + + + | Home Phone | | + + + | Preferred Language | Unknown | + + + | Marital Status | | + + + | Advent Affiliation | Unknown | + + + | Race | Unknown | + + + | Ethnic Group | Unknown | + + + Author + + + | Author | [facility] | | | and [place] | + + + | Organization | [facility] | | | [...] | | | | [place] [address] | | + + + + + | Emory Larios | ECON | Unknown | | + + + + + Care Team Providers + +------+ + | Care Respiratory Scientist Name | Role | Phone | + +------+ + | Shannan Deng | PCP | | + +------+ + Encounter Details +--------+ + + + + | Date | Type | Department | Care Team | Description | +--------+ + + + + | 05/13/ | Orders Only | [facility] | Conversion | | | 2019 | | CONVERSION [address] | Transaction, | | | | [address] | Provider Unknown | | | | | [place], [place] | [phone] | | | | | [address] | | | | | | [phone] | | | +--------+ + + + [...] [place] | | | | | | [address] | | | | | | | | +--------+ + + + + | 12/17/ | Office | Oncology | Yancy Clifford MD | | | 2019 | Visit | | [address] | | | | | | [place] | | | | | | [address] | | | | | | | | +--------+ + + + + | 12/17/ | Appointment | Infusion Therapy | Yancy Clifford MD | | | 2019 | | | [address] | | | | | | [place] | | | | | | [address] | | | | | | | | +--------+ + + + + | 01/07/ | Appointment | Infusion Therapy | Yancy Clifford MD | | | 2019 | | | [address] | | | | | | [place] | | | | | | [address] | | | | | | | | +--------+ + + + + | 01/07/ | Office | Oncology | Yancy Clifford MD | | | 2019 | Visit | | [address] | | | | | | [place] | | | | | | [address] | | | | | | | | +--------+ + + + + | 01/07/ | Appointment | Infusion Therapy | Yancy Clifford MD | | | 2019 | | | [address] | | | | | | [place] | | | | | | [address] | | | | | | | | +--------+ + + + + documented as of this encounter Visit Diagnoses Not on filedocumented in this encounter"
--- OUTSIDE RECORDS SUMMARY | ~2019-12-08 | XMS | Encounter Summary ---
Demographics + + + | Address | [address] | | | [place] [address] | + + + | Home Phone [...] | | | | [place] [address] | | + + + + + | Emory Larios | ECON | Unknown | | + + + + + Care Team Providers + +------+ + | Care Community Outreach Worker Name | Role | Phone | [...] Provider Unknown | | | | | [place], [place] | [phone] | | | | | [address] | | | | | | [phone] | | | +--------+ + + + [...] [place] | | | | | | [address] | | | | | | | | +--------+ + + + + | 12/17/ | Office | Oncology | Yancy Clifford MD | | | 2019 | Visit | | [address] | | | | | | [place] | | | | | | [address] | | | | | | | | +--------+ + + + + | 12/17/ | Appointment | Infusion Therapy | Yancy Clifford MD | | | 2019 | | | [address] | | | | | | [place] | | | | | | [address] | | | | | | | | +--------+ + + + + | 01/07/ | Appointment | Infusion Therapy | Yancy Clifford MD | | | 2019 | | | [address] | | | | | | [place] | | | | | | [address] | | | | | | | | +--------+ + + + + | 01/07/ | Office | Oncology | Yancy Clifford MD | | | 2019 | Visit | | [address] | | | | | | [place] | | | | | | [address] | | | | | | | | +--------+ + + + + | 01/07/ | Appointment | Infusion Therapy | Yancy Clifford MD | | | 2019 | | | [address] | | | | | | [place] | | | | | | [address] | | | | | | | | +--------+ + + + + documented as of this encounter Visit Diagnoses Not on filedocumented in this encounter"
--- OUTSIDE RECORDS SUMMARY | ~2019-12-08 | XMS | Encounter Summary ---
Demographics + + + | Address | [address] | | | [place] [address] | + + + | Home Phone | | + + + | Preferred Language | Unknown | + + + | Marital Status | | + + + | Jewish Affiliation | Unknown | + + + | Race | Unknown | + + + | Ethnic Group | Unknown | + + + Author + + + | Author | [facility] | | | and [place] | + + + | Organization | [facility] | | | [...] | | | | [place] [address] | | + + + + + | Emory Larios | ECON | Unknown | | + + + + + Care Team Providers + +------+ + | Care Care Attendant Name | Role | Phone | + +------+ + | Shannan Deng | PCP | | + +------+ + Encounter Details +--------+ + + + + | Date | Type | Department | Care Team | Description | +--------+ + + + + | 11/05/ | Hospital | [facility] | Yancy Clifford MD | 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) | | | | SERVICES [address] | [place] | (Primary Dx) | | | | [address] [place] | [id number] | | | | | [address] [facility] [place] | | | | | | [address] | Sherrill Javed, | | | | | [phone] | RN | | +--------+ + + [...] documented as of this encounter Progress Notes Sherrill Javed RN - 11/05/2019 1:30 PM PSTPort accessed, +blood return, labs drawn, lef t accessed for treatment. documented in this e ncounter Plan of Treatment +--------+ + + + + | Date | Type | Specialty | Care Team | Description | +--------+ + + + + | 12/17/ | Appointment | Infusion Therapy | Yancy Clifford MD | | | 2019 | | | [address] | | | | | | [place] | | | | | | [address] | | | | | | | | +--------+ + + + + | 12/17/ | Office | Oncology | Yancy Clifford MD | | | 2019 | Visit | | [address] | | | | | | [place] | | | | | | [address] | | | | | | | | +--------+ + + + + | 12/17/ | Appointment | Infusion Therapy | Yancy Clifford MD | | | 2019 | | | [address] | | | | | | [place] | | | | | | [address] | | | | | | | | +--------+ + + + + | 01/07/ | Appointment | Infusion Therapy | Yancy Clifford MD | | | 2019 | | | [address] | | | | | | [place] | | | | | | [address] | | | | | | | | +--------+ + + + + | 01/07/ | Office | Oncology | Yancy Clifford MD | | | 2019 | Visit | | [address] | | | | | | [place] | | | | | | [address] | | | | | | | | +--------+ + + + + | 01/07/ | Appointment | Infusion Therapy | Yancy Clifford MD | | | 2019 | | | [address] | | | | | | [place] | | | | | | [address] | | | | | | | [...] in this encounter Results Urinalysis, Microscopic Only (11/05/2019 1:17 PM PST) + + + [...] [place] | | | | | | [address] | | | | + + + + + + + + | Specimen | + + | | + + + + + + + | Performing | Address | City/State/Zipcode | Phone Number | | Organization | | | | + + + + + | REFERENCE LAB | [address] [place], [place] [address]and[place] | [place] [address] | [phone] | | [facility] | Blvd. | | | | LABORATORY | | | | + + + + + | REFERENCE LAB | [address] | [place] [address] | | | [facility] | Blvd. | | | | LABORATORY | | | | + + + + + Protein, Urine, Random (11/05/2019 1:17 PM PST) + + + + + + | Component | Value | Ref Range | Performed | Pathologist | | | | | At | Signature | + + + + + + | Protein, | 88Comment: NO NORMAL | mg/dL | REFERENCE | | | Urine | RANGE ESTABLISHEDTesting | | LAB | | | | performed at [facility];[address] | | [facility] | | | | [place] | | LABORATORY | | | | Blvd;[place] [address] | | | | | | | | | | + + + + + + + + | Specimen | + + | | + + + + + + + | Performing | Address | City/State/Zipcode | Phone Number | | Organization | | | | + + + + + | REFERENCE LAB | [address] [facility] | [place] [address] | [phone] | | [facility] | Blvd. | | | | LABORATORY | | | | + + + + + | REFERENCE LAB | [address] [facility] | [place] [address] | | | [facility] | Blvd. | | | | LABORATORY | | | | + + + + + Creatinine, Urine, Random (11/05/2019 1:17 PM PST) + + + + + + | Component | Value | Ref Range | Performed | Pathologist | | | | | At | Signature | + + + + + + | Creatinine, | 157.0Comment: NO NORMAL | mg/dL | REFERENCE | | | random | RANGE ESTABLISHEDTesting | | LAB | | | urine | performed at [facility];[address] | | [facility] | | | | [place] | | LABORATORY | | | | Blvd;[place] [address] | | | | | | | | | | + + + + + + + + | Specimen | + + | | + + + + + + + | Performing | Address | City/State/Zipcode | Phone Number | | Organization | | | | + + + + + | REFERENCE LAB | [address] [facility] | [place] [address] | [phone] | | [facility] | Blvd. | | | | LABORATORY | | | | + + + + + | REFERENCE LAB | [address] [facility] | [place] [address] | | | [facility] | Blvd. | | | | LABORATORY | | | | + + + + + Urinalysis with Microscopic if Indicated (11/05/2019 1:17 PM PST) + + + [...] - 1.030 | REFERENCE | | | [place], | | | LAB | | | [...] REFERENCE | | | | Performed at [facility], [address] | | LAB | | | | [address] | | [facility] | | | | [address] | | LABORATORY | | | | [address] | | | | + + + + + + + + | Specimen | + + | | + + + + + + + | Performing | Address | City/State/Zipcode | Phone Number | | Organization | | | | + + + + + | REFERENCE LAB | [address] [place] [address] | [place] [address] | [phone] | | [facility] | Blvd. | | | | LABORATORY | | | | + + + + + | REFERENCE LAB | [address] [place] [address] | [place] [address] | | | [facility] | Blvd. | | | | LABORATORY | | | | + + + + + Protein/Creatinine Ratio, Urine (11/05/2019 1:17 PM PST) + + + + + + | Component | Value | Ref Range | Performed | Pathologist | | | | | At | Signature | + + + + + + | PRO/CREA | 0.561Comment: Testing | | REFERENCE | | | RATIO,URINE | performed at [facility];[address] | | LAB | | | | [facility] | | [facility] | | | | vd;[place] [address] | | LABORATORY | | + + + + + + + + | Specimen | + + | | + + + + + + + | Performing | Address | City/State/Zipcode | Phone Number | | Organization | | | | + + + + + | REFERENCE LAB | [address] [place] [address] | [place] [address] | [phone] | | [facility] | Blvd. | | | | LABORATORY | | | | + + + + + | REFERENCE LAB | [address] [place] [address] | [place] [address] | | | [facility] | Blvd. | [...] | | LABORATORY | | | | [address] | | | | + + + + + + + + | Specimen | + + | Blood | + + + + + + + | Performing | Address | City/State/Zipcode | Phone Number | | Organization | | | | + + + + + | REFERENCE LAB | [address] [place] [address] | [place] [address] | [phone] | | [facility] | Blvd. | | | | LABORATORY | | | | + + + + + | REFERENCE LAB | [address] [place] [address] | [place] [address] | | | [facility] | Blvd. | [...] | | | | | performed at [facility];[address] | | | | | | [facility] | | | | | | Blvd;[place] [address] | | | | | | | | | | + + + + + + + + | Specimen | + + | Blood | + + + + + + + | Performing | Address | City/State/Zipcode | Phone Number | | Organization | | | | + + + + + | REFERENCE LAB | [address] [facility] | [place] [address] | [phone] | | [facility] | Blvd. | | | | LABORATORY | | | | + + + + + | REFERENCE LAB | [address] | [place] [address] | | | [facility] | Blvd. | [...] chloride 0.9% flush 10 | Given | 11/05/20 | 30 mLs | | | | mL 10 mL, Intracatheter, PRN, | | 19 1:24 | | | | | Line Care, Starting Teresa 11/05/19 | | PM PST | | | | | at 1323 | | | | | | + +--------+ +--------+------+------+ +---+---+ | | | +---+---+ documented in this encounter"
--- OUTSIDE RECORDS SUMMARY | ~2019-12-08 | XMS | Encounter Summary ---
Demographics + + + | Address | [address] | | | [place] [address] | + + + | Home Phone | | + + + | Preferred Language | Unknown | + + + | Marital Status | | + + + | Orthodox Affiliation | Unknown | + + + [...] | | | | [place] [address] | | + + + + + | Emory Larios | ECON | Unknown | | + + + + + Care Team Providers + +------+ + | Care Asbestos Worker Name | Role | Phone | [...] Closed | | Radiology | Diagnoses | [place], | [facility] [address] | | | | | Malignant | Jennyfer M, | [address] | | | | | neoplasm of | GRANITE SANDBLASTER APPRENTICE [address] | [place], [place] | | | | | left ovary | [address] | [address] | | | | | (HCC) | AVE | Phone: | | | | | Procedures | [place], | [phone] | | | | | CT Chest | [place] [address] | Fax: | | | | | Abdomen | Phone: | [phone] | | | | | Pelvis w | [phone] | | | | | | Contrast | Fax: | | | | | | | [phone] | | +--------+--------+ + + + + Reason for Visit Diagnostic/Screening (Urgent) +--------+--------+ + + + + | Status | Reason | Specialty | Diagnoses / | Referred By | Referred To | | | | | Procedures | Contact | Contact | +--------+--------+ + + + + | Closed | | Radiology | Diagnoses | [place], | [facility] [address] | | | | | Malignant | Jennyfer Lou, | [address] | | | | | neoplasm of | GRANITE SANDBLASTER APPRENTICE [address] | [place], [place] | | | | | left ovary | [address] | [address] | | | | | (HCC) | AVE | Phone: | | | | | Procedures | [place], | [phone] | | | | | CT Chest | [place] [address] | Fax: | | | | | Abdomen | Phone: | [phone] | | | | | Pelvis w | [phone] | | | | | | Contrast | Fax: | | | | | | | [phone] | | +--------+--------+ + + + + Encounter Details +--------+ + + + + | Date | Type | Department | Care Team | Description | +--------+ + + + + | 10/16/ | Hospital | [facility] | Jennyfer Calvert | Malignant neoplasm | | 2019 | Encounter | [facility] | M, GRANITE SANDBLASTER APPRENTICE [address] | of left ovary (HCC) | | | | [address] | [address] | | | | | [place], [place] | [place] [address] | | | | | [address] | [phone] | | | | | [phone] | | | +--------+ + + + [...] 2 puffs into | | 0 | // | | | (PROVENTIL HFA) 90 | [...] [place] | | | | | | [address] | | | | | | | | +--------+ + + + + | 12/17/ | Office | Oncology | Yancy Clifford MD | | | 2019 | Visit | | [address] | | | | | | [place] | | | | | | [address] | | | | | | | | +--------+ + + + + | 12/17/ | Appointment | Infusion Therapy | Yancy Clifford MD | | | 2019 | | | [address] | | | | | | [place] | | | | | | [address] | | | | | | | | +--------+ + + + + | 01/07/ | Appointment | Infusion Therapy | Yancy Clifford MD | | | 2019 | | | [address] | | | | | | [place] | | | | | | [address] | | | | | | | | +--------+ + + + + | 01/07/ | Office | Oncology | Yancy Clifford MD | | | 2019 | Visit | | [address] | | | | | | [place] | | | | | | [address] | | | | | | | | +--------+ + + + + | 01/07/ | Appointment | Infusion Therapy | Yancy Clifford MD | | | 2019 | | | [address] | | | | | | [place] | | | | | | [address] | | | | | | | [...] in this encounter Administered Medications + +--------+ + +------+------+ | Medication Order | MAR | Action | Dose | Rate | Site | | | Action | Date | | | | + +--------+ + +------+------+ | heparin 10 units/mL flush | Given | 10/16/20 | 50 Units | | | | injection 50 Units 50 Units (5 | | 19 2:20 | | | | | mL), Intracatheter, PRN, Line | | PM PST | | | | | Care, Starting 10/16/19 at | | | | | | | 1355 | | | | | | + +--------+ + +------+------+ +---+---+ | | | +---+---+ + +-------+ +---------+---+---+ | iohexol (OMNIPAQUE 350) 350 | Given | 10/16/20 | 100 mLs | | | | mg/mL injection 100 mL 100 mL, | | 19 2:00 | | | | | Intravenous, ONCE PRN, Other, | | PM PST | | | | | Starting 10/16/19 at 1344, | | | | | | | For 1 dose, Cat Scanner | | | | | | + +-------+ +---------+---+---+ +---+---+ | | | +---+---+ documented in this encounter"
--- OUTSIDE RECORDS SUMMARY | ~2019-12-08 | XMS | Encounter Summary ---
Demographics + + + | Address | [address] | | | [place] [address] | + + + | Home Phone [...] | | | | [place] [address] | | + + + + + | Emory Larios | ECON | Unknown | | + + + + + Care Team Providers + +------+ + | Care Director Sanitation Bureau Name | Role | Phone | + +------+ + | Shannan Deng | PCP | | + +------+ + Encounter Details +--------+ + + + + | Date | Type | Department | Care Team | Description | +--------+ + + + + | 07/22/ | Orders Only | [facility] | Sushma Marquis | Malignant neoplasm | | 2019 | | INFUSION SUPPORT | A, RN | of left ovary (HCC) | | | | SERVICES [address] | | (Primary Dx) | | | | [address] | | | | | | [address] [place] | | | | | | [address] | | | | | | [phone] | | | +--------+ + + + [...] [place] | | | | | | [address] | | | | | | | | +--------+ + + + + | 12/17/ | Office | Oncology | Yancy Clifford MD | | | 2019 | Visit | | [address] | | | | | | [place] | | | | | | [address] | | | | | | | | +--------+ + + + + | 12/17/ | Appointment | Infusion Therapy | Yancy Clifford MD | | | 2019 | | | [address] | | | | | | [place] | | | | | | [address] | | | | | | | | +--------+ + + + + | 01/07/ | Appointment | Infusion Therapy | Yancy Clifford MD | | | 2019 | | | [address] | | | | | | [place] | | | | | | [address] | | | | | | | | +--------+ + + + + | 01/07/ | Office | Oncology | Yancy Clifford MD | | | 2019 | Visit | | [address] | | | | | | [place] | | | | | | [address] | | | | | | | | +--------+ + + + + | 01/07/ | Appointment | Infusion Therapy | Yancy Clifford MD | | | 2020 | | | [address] | | | | | | [place] | | | | | | [address] | | | | | | | | +--------+ + + + + documented as of this encounter Visit Diagnoses + + | Diagnosis | + + | 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
--- OUTSIDE RECORDS SUMMARY | ~2019-12-08 | XMS | Encounter Summary ---
Demographics + + + | Address | [address] | | | [place] [address] | + + + | Home Phone [...] | | | | [place] [address] | | + + + + + | Emory Larios | ECON | Unknown | | + + + + + Care Team Providers + +------+ + | Care Casting Supervisor Name | Role | Phone | + +------+ + | Shannan Deng | PCP | | + +------+ + Encounter Details +--------+ + + + + | Date | Type | Department | Care Team | Description | +--------+ + + + + | 07/16/ | Orders Only | [facility] | Sushma Marquis | Malignant neoplasm | | 2019 | | INFUSION SUPPORT | A, RN | of left ovary (HCC) | | | | SERVICES [address] | | (Primary Dx) | | | | [address] | | | | | | [address] [place] | | | | | | [address] | | | | | | [phone] | | | +--------+ + + + [...] [place] | | | | | | [address] | | | | | | | | +--------+ + + + + | 12/17/ | Office | Oncology | Yancy Clifford MD | | | 2019 | Visit | | [address] | | | | | | [place] | | | | | | [address] | | | | | | | | +--------+ + + + + | 12/17/ | Appointment | Infusion Therapy | Yancy Clifford MD | | | 2019 | | | [address] | | | | | | [place] | | | | | | [address] | | | | | | | | +--------+ + + + + | 01/07/ | Appointment | Infusion Therapy | Yancy Clifford MD | | | 2019 | | | [address] | | | | | | [place] | | | | | | [address] | | | | | | | | +--------+ + + + + | 01/07/ | Office | Oncology | Yancy Clifford MD | | | 2019 | Visit | | [address] | | | | | | [place] | | | | | | [address] | | | | | | | | +--------+ + + + + | 01/07/ | Appointment | Infusion Therapy | Yancy Clifford MD | | | 2020 | | | [address] | | | | | | [place] | | | | | | [address] | | | | | | | | +--------+ + + + + documented as of this encounter Visit Diagnoses + + | Diagnosis | + + | 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
--- OUTSIDE RECORDS SUMMARY | ~2019-12-08 | XMS | Encounter Summary ---
Demographics + + + | Address | [address] | | | [place] [address] | + + + | Home Phone | | + + + | Preferred Language | Unknown | + + + | Marital Status | | + + + | Methodist Affiliation | Unknown | + + + | Race | Unknown | + + + | Ethnic Group | Unknown | + + + Author + + + | Author | [facility] | | | and [place] | + + + | Organization | [facility] | | | and [...] | | | | [place] [address] | | + + + + + | Emory Larios | ECON | Unknown | | + + + + + Care Team Providers + +------+ + | Care Wine Bottle Inspector Name | Role | Phone | [...] | | | [place], | [place], | [place] [address] | | | | | malignant | [place] [address] | Phone: | | | | | Procedures | Phone: | [phone] | | | | | [place] | [phone] | Fax: | | | | | [facility] | Fax: | [phone] | | | | | INJECTION, | [phone] | | | | | | 10 MG [id number] | | | | | | | - [place] | | | | | | | [...] + + | 09/24/ | Hospital | [facility] | Yancy Clifford MD | Malignant neoplasm | | 2019 | Encounter | HEMATOLOGY AND | [address] | of left ovary (HCC) | | | | ONCOLOGY INFUSIONS | [place] | (Primary Dx); | | | | [address] | [address] | Ascites, malignant | | | | [address]VE [place], [place] | | | | | | [address] | | | | | | [phone] | | | +--------+ + + + [...] prevent mouth sores: Keep your mouth clean. [place] your teeth with a soft-bristle toothbrush after [...] baking soda to clean your mouth. M [id number] salt [id number] of baking soda in 1 quart of [...] begins to ooze Burning when you urinate [id number] (38C) tiffani pineda directed by your healthcare provider Date Last Reviewed: 04/01/201619990892-4698 [employer]. [address] [place] [address]. All righ ts reserved. This information is [...] here for C6 D1 Avastin. Seen by fior morgan and cleared for treatment. Pt's orders/protocol verified, along with Ht and Wt and BSA r echecked, doses reverified, all with second RN ( margaret ) before releasing to Pharmacy. Labs within parameters for treatment. VSS Distress Survey completed. Pt tolerated tx well. Reinforced calling for any concerns or questions. Discharged to [facility] with copy of labs and calendar for [...] [place] | | | | | | [address] | | | | | | | | +--------+ + + + + | 12/17/ | Office | Oncology | Yancy Clifford MD | | | 2019 | Visit | | [address] | | | | | | [place] | | | | | | [address] | | | | | | | | +--------+ + + + + | 12/17/ | Appointment | Infusion Therapy | Yancy Clifford MD | | | 2019 | | | [address] | | | | | | [place] | | | | | | [address] | | | | | | | | +--------+ + + + + | 01/07/ | Appointment | Infusion Therapy | Yancy Clifford MD | | | 2019 | | | [address] | | | | | | [place] | | | | | | [address] | | | | | | | | +--------+ + + + + | 01/07/ | Office | Oncology | Yancy Clifford MD | | | 2019 | Visit | | [address] | | | | | | [place] | | | | | | [address] | | | | | | | | +--------+ + + + + | 01/07/ | Appointment | Infusion Therapy | Yancy Clifford MD | | | 2019 | | | [address] | | | | | | [place] | | | | | | [address] | | | | | | | [...]
--- OUTSIDE RECORDS SUMMARY | ~2019-12-08 | XMS | Encounter Summary ---
Demographics + + + | Address | [address] | | | [place] [address] | + + + | Home Phone | | + + + | Preferred Language | Unknown | + + + | Marital Status | | + + + | Sikh Affiliation | Unknown | + + + | Race | Unknown | + + + | Ethnic Group | Unknown | + + + Author + + + | Author | [facility] | | | and [place] | + + + | Organization | [facility] | | | [...] | | | | | [place] [address] | | + + + + + | Emory Larios | ECON | Unknown | | + + + + + Care Team Providers + +------+ + | Care Territory Development Manager Name | Role | Phone | + +------+ + PCP | Unavailable | + +------+ + Encounter Details +--------+ + + + + | Date | Type | Department | Care Team | Description | +--------+ + + + + | 06/11/ | Orders Only | [facility] | Yancy Clifford MD | | | 2019 | | [address] [address] | [address] | | | | | [place] | [place] | | | | | [address] | [address] | | | | | [phone] | | | +--------+ + + + [...] [place] | | | | | | [address] | | | | | | | | +--------+ + + + + | 12/17/ | Office | Oncology | Yancy Clifford MD | | | 2019 | Visit | | [address] | | | | | | [place] | | | | | | [address] | | | | | | | | +--------+ + + + + | 12/17/ | Appointment | Infusion Therapy | Yancy Clifford MD | | | 2019 | | | [address] | | | | | | [place] | | | | | | [address] | | | | | | | | +--------+ + + + + | 01/07/ | Appointment | Infusion Therapy | Yancy Clifford MD | | | 2019 | | | [address] | | | | | | [place] | | | | | | [address] | | | | | | | | +--------+ + + + + | 01/07/ | Office | Oncology | Yancy Clifford MD | | | 2019 | Visit | | [address] | | | | | | [place] | | | | | | [address] | | | | | | | | +--------+ + + + + | 01/07/ | Appointment | Infusion Therapy | Yancy Clifford MD | | | 2019 | | | [address] | | | | | | [place] | | | | | | [address] | | | | | | | [...]
--- OUTSIDE RECORDS SUMMARY | ~2019-12-08 | XMS | Encounter Summary ---
Demographics + + + | Address | [address] | | | [place] [address] | + + + | Home Phone | | + + + | Preferred Language | Unknown | + + + | Marital Status | | + + + | Mandaeism Affiliation | Unknown | + + + | Race | Unknown | + + + | Ethnic Group | Unknown | + + + Author + + + | Author | [facility] | | | and [place] | + + + | Organization | [facility] | | | and [...] | | | | [place] [address] | | + + + + + | Emory Larios | ECON | Unknown | | + + + + + Care Team Providers + +------+ + | Care Insulation Machine Operator Name | Role | Phone [...] | | | Ascites, | [place], | [place] [address] | | | | | malignant | [place] [address] | Phone: | | | | | Procedures | Phone: | [phone] | | | | | [place] | [phone] | Fax: | | | | | BEVACIZUMAB | Fax: | [phone] | | | | | INJECTION, | [phone] | | | | | | 10 [...] + + | 09/03/ | Hospital | [facility] | Yancy Clifford MD | Malignant neoplasm | | 2019 | Encounter | HEMATOLOGY AND | [address] | of left ovary (HCC) | | | | ONCOLOGY INFUSIONS | [place], [place] | (Primary Dx); | | | | [address] | [address] | Ascites, malignant | | | | AVE [place], [place] | | | | | | [address] | Bhakti Godfrey RN | | | | | [phone] | | | +--------+ + + + [...] is given by a health home care companion in a h ospital or clinic setting. Talk to your straightening roll operator regarding the use of this medicine in children. Special care may be needed. What side effects may I notice from receiving this medicine? Side effects that you should report to your doctor or health home care companion as soon as p ossible: allergic reactions [...] to your doctor or health home care companion if they continue or are bothersome): back pain changes in taste decreased appetite dry skin nausea tiredness What may interact with this medicine? Interactions are not expected. What if I miss a dose? It is important not to miss your dose. Call your doctor or health home care companion if you are unable to keep an [...] to your doctor or health home care companion if you are concerned about your fertility. [...] with [facility] in [facility] INF[facility]ION SUPPORT SERVICES 09/24/2019 1415 - Office Visit Extended appointment starts at 1430 with Yancy Clifford MD in [facility]EMAT[facility]Y [facility] 09/24/2019 1500 - Onc Infusion with JAZZY CHAIR 15 in [facility] HEMATOLOGY AND ONCOLOGY INFUSIONS [...] [place] | | | | | | [address] | | | | | | | | +--------+ + + + + | 12/17/ | Office | Oncology | Yancy Clifford MD | | | 2019 | Visit | | [address] | | | | | | [place] | | | | | | [address] | | | | | | | | +--------+ + + + + | 12/17/ | Appointment | Infusion Therapy | Yancy Clifford MD | | | 2019 | | | [address] | | | | | | [place] | | | | | | [address] | | | | | | | | +--------+ + + + + | 01/07/ | Appointment | Infusion Therapy | Yancy Clifford MD | | | 2019 | | | [address] | | | | | | [place] | | | | | | [address] | | | | | | | | +--------+ + + + + | 01/07/ | Office | Oncology | Yancy Clifford MD | | | 2019 | Visit | | [address] | | | | | | [place] | | | | | | [address] | | | | | | | | +--------+ + + + + | 01/07/ | Appointment | Infusion Therapy | Yancy Clifford MD | | | 2019 | | | [address] | | | | | | [place] | | | | | | [address] | | | | | | | [...]
--- OUTSIDE RECORDS SUMMARY | ~2019-12-08 | XMS | Encounter Summary ---
Demographics + + + | Address | [address] | | | [place] [address] | + + + | Home Phone | | + + + | Preferred Language | Unknown | + + + | Marital Status | | + + + | Orthodox Affiliation | Unknown | + + + | Race | Unknown | + + + | Ethnic Group | Unknown | + + + Author + + + | Author | [facility] | | | and [place] | + + + | Organization | [facility] | | [...] | | | | [place] [address] | | + + + + + | Emory Larios | ECON | Unknown | | + + + + + Care Team Providers + +------+ + | Care Pocket And Pulley Machine Operator Name | Role | Phone | + +------+ + | Shannan Deng | PCP | | + +------+ + Encounter Details +--------+ + + + + | Date | Type | Department | Care Team | Description | +--------+ + + + + | 08/19/ | Orders Only | [facility] | Yancy Clifford MD | | | 2017 | | INFUSION SUPPORT | [address] | | | | | SERVICES [address] | [place], [place] | | | | | [address] | [address] | | | | | [address] [place] | | | | | | [address] | | | | | | [phone] | | | +--------+ + + + [...] Filed: 08/19/1848 Encounter Date: 08/19/2018 Status: Signed Conditioner Tumbler: Bhakti Godfrey RN (Registered Nurse) Port accessed. [...] [place] | | | | | | [address] | | | | | | | | +--------+ + + + + | 12/17/ | Appointment | Infusion Therapy | Yancy Clifford MD | | | 2019 | | | [address] | | | | | | [place] | | | | | | [address] | | | | | | | | +--------+ + + + + | 01/07/ | Appointment | Infusion Therapy | Yancy Clifford MD | | | 2019 | | | [address] | | | | | | [place] | | | | | | [address] | | | | | | | | +--------+ + + + + | 01/07/ | Office | Oncology | Yancy Clifford MD | | | 2019 | Visit | | [address] | | | | | | [place] | | | | | | [address] | | | | | | | | +--------+ + + + + | 01/07/ | Appointment | Infusion Therapy | Yancy Clifford MD | | | 2019 | | | [address] | | | | | | [place] | | | | | | [address] | | | | | | | [...] in this encounter Results External Lab: [facility] (08/19/2018 8:25 AM PDT) + + + [...]
--- OUTSIDE RECORDS SUMMARY | ~2019-12-08 | XMS | Encounter Summary ---
Demographics + + + | Address | [address] | | | [place] [address] | + + + | Home Phone | | + + + | Preferred Language | Unknown | + + + | Marital Status | | + + + | Oriental Orthodox Affiliation | Unknown | + + + | Race | Unknown | + + + | Ethnic Group | Unknown | + + + Author + + + | Author | [facility] | | | and [place] | + + + | Organization | [facility] | | | [...] | | | | [place] [address] | | + + + + + | Emory Larios | ECON | Unknown | | + + + + + Care Team Providers + +------+ + | Care Sales Agent Food Vending Service Name | Role | Phone | + +------+ + | Shannan Deng | PCP | | + +------+ + Encounter Details +--------+ + + + + | Date | Type | Department | Care Team | Description | +--------+ + + + + | 08/14/ | Orders Only | [facility] | Bhakti Oden, | Malignant neoplasm | | 2019 | | [address] | Medical Lab Director | of left ovary (HCC) | | | | [place] | | | | | | [address] | | | | | | [phone] | | | +--------+ + + + [...] | | | 2019 | | | [address] | | | | | | [place] | | | | | | [address] | | | | | | | | +--------+ + + + + | 12/17/ | Office | Oncology | Yancy Clifford MD | | | 2019 | Visit | | [address] | | | | | | [place] | | | | | | [address] | | | | | | | | +--------+ + + + + | 12/17/ | Appointment | Infusion Therapy | Yancy Clifford MD | | | 2019 | | | [address] | | | | | | [place] | | | | | | [address] | | | | | | | | +--------+ + + + + | 01/07/ | Appointment | Infusion Therapy | Yancy Clifford MD | | | 2019 | | | [address] | | | | | | [place] | | | | | | [address] | | | | | | | | +--------+ + + + + | 01/07/ | Office | Oncology | Yancy Clifford MD | | | 2019 | Visit | | [address] | | | | | | [place] | | | | | | [address] | | | | | | | | +--------+ + + + + | 01/07/ | Appointment | Infusion Therapy | Yancy Clifford MD | | | 2020 | | | [address] | | | | | | [place] | | | | | | [address] | | | | | | | | +--------+ + + + + documented as of this encounter Procedures + +--------+ + + + | Procedure Name | Priori | Date/Time | Associated Diagnosis | Comments | | | ty | | | | + +--------+ + + + | CA 125, QUANT | STAT | 08/13/2019 | Malignant neoplasm | Results for this | | | | 8:46 AM | of left ovary (HCC) | procedure are in the | | | | PDT | | results section. | + +--------+ + + + documented in this encounter Results CA 125, Quant (08/13/2019 [...] | | | | | | [id number] | | | | [address];[place] [address] | | | | | | | | | | + + + + + + + + | Specimen | + + | Blood | + + + + + + + | Performing | Address | City/State/Zipcode | Phone Number | | Organization | | | | + + + + + | REFERENCE LAB | [address] | [place] [address] | [phone] | | [facility] | Blvd[address] | | | | LABORATORY | | | | + + + + + | REFERENCE LAB | [address] | [place] [address] | | | [facility] | Blvd. | | | | LABORATORY | | | | + + + + + documented in this encounter Visit Diagnoses + + | Diagnosis | + + | Malignant neoplasm of left ovary (HCC) Malignant neoplasm of ovary | + + documented in this encounter"
--- OUTSIDE RECORDS SUMMARY | ~2019-12-08 | XMS | Encounter Summary ---
Demographics + + + | Address | [address] | | | [place] [address] | + + + | Home Phone | | + + + | Preferred Language | Unknown | + + + | Marital Status | | + + + | Pentecostalism Affiliation | Unknown | + + + | Race | Unknown | + + + | Ethnic Group | Unknown | + + + Author + + + | Author | [facility] | | | and [place] | + + + | Organization | [facility] | | [...] | | | | [place] [address] | | + + + + + | Emory Larios | ECON | Unknown | | + + + + + Care Team Providers + +------+ + | Care Mess Attendant Crew Name | Role | Phone | + +------+ + | Shannan Deng | PCP | | + +------+ + Encounter Details +--------+ + + + + | Date | Type | Department | Care Team | Description | +--------+ + + + + | 07/22/ | Orders Only | [facility] | Sushma Marquis | Malignant neoplasm | | 2019 | | INFUSION SUPPORT | A, RN | of left ovary (HCC) | | | | SERVICES [address] | | (Primary Dx) | | | | [address] | | | | | | [address] [place] | | | | | | [address] | | | | | | [phone] | | | +--------+ + + + [...] [place] | | | | | | [address] | | | | | | | | +--------+ + + + + | 12/17/ | Office | Oncology | Yancy Clifford MD | | | 2019 | Visit | | [address] | | | | | | [place] | | | | | | [address] | | | | | | | | +--------+ + + + + | 12/17/ | Appointment | Infusion Therapy | Yancy Clifford MD | | | 2019 | | | [address] | | | | | | [place] | | | | | | [address] | | | | | | | | +--------+ + + + + | 01/07/ | Appointment | Infusion Therapy | Yancy Clifford MD | | | 2019 | | | [address] | | | | | | [place] | | | | | | [address] | | | | | | | | +--------+ + + + + | 01/07/ | Office | Oncology | Yancy Clifford MD | | | 2019 | Visit | | [address] | | | | | | [place] | | | | | | [address] | | | | | | | | +--------+ + + + + | 01/07/ | Appointment | Infusion Therapy | Yancy Clifford MD | | | 2020 | | | [address] | | | | | | [place] | | | | | | [address] | | | | | | | | +--------+ + + + + documented as of this encounter Visit Diagnoses + + | Diagnosis | + + | 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
--- OUTSIDE RECORDS SUMMARY | ~2019-12-08 | XMS | Encounter Summary ---
Demographics + + + | Address | [address] | | | [place] [address] | + + + | Home Phone | | + + + | Preferred Language | Unknown | + + + | Marital Status | | + + + | Mormon Affiliation | Unknown | + + + | Race | Unknown | + + + | Ethnic Group | Unknown | + + + Author + + + | Author | [facility] | | | and [place] | + + + | Organization | [facility] | | [...] | | | | [place] [address] | | + + + + + | Emory Larios | ECON | Unknown | | + + + + + Care Team Providers + +------+ + | Care Survey Rodman Name | Role | Phone | + +------+ + PCP | Unavailable | + +------+ + Encounter Details +--------+ + + + + | Date | Type | Department | Care Team | Description | +--------+ + + + + | 06/14/ | Hospital | [facility] | Conversion | Back pain, | | 2015 | Encounter | CONVERSION [address] | Transaction, | unspecified location | | | | [address] | Provider Unknown | | | | | [place], [place] | | | | | | [address] | (Fax) | | | | | [...] [place] | | | | | | [address] | | | | | | | | +--------+ + + + + | 12/17/ | Office | Oncology | Yancy Clifford MD | | | 2019 | Visit | | [address] | | | | | | [place] | | | | | | [address] | | | | | | | | +--------+ + + + + | 12/17/ | Appointment | Infusion Therapy | Yancy Clifford MD | | | 2019 | | | [address] | | | | | | [place] | | | | | | [address] | | | | | | | | +--------+ + + + + | 01/07/ | Appointment | Infusion Therapy | Yancy Clifford MD | | | 2019 | | | [address] | | | | | | [place] | | | | | | [address] | | | | | | | | +--------+ + + + + | 01/07/ | Office | Oncology | Yancy Clifford MD | | | 2019 | Visit | | [address] | | | | | | [place] | | | | | | [address] | | | | | | | | +--------+ + + + + | 01/07/ | Appointment | Infusion Therapy | Yancy Clifford MD | | | 2019 | | | [address] | | | | | | [place] | | | | | | [address] | | | | | | | [...]
--- OUTSIDE RECORDS SUMMARY | ~2019-12-08 | XMS | Encounter Summary ---
Demographics + + + | Address | [address] | | | [place] [address] | + + + | Home Phone [...] | | | | | [place] [address] | | + + + + + | Emory Larios | ECON | Unknown | | + + + + + Care Team Providers + +------+ + | Care Quarter Lining Smoother Name | Role | Phone | + +------+ + PCP | Unavailable | + +------+ + Encounter Details +--------+ + + + + | Date | Type | Department | Care Team | Description | +--------+ + + + + | 07/09/ | Abstract | [facility] | Patricia Sanchez, | | | 2018 | | HEMATOLOGY AND | Car Hiker | | | | | ONCOLOGY [address] | | | | [address] | | | | | | [place] | | | | | | [address] | | | | | | [phone] | | | +--------+ + + + [...] [place] | | | | | | [address] | | | | | | | | +--------+ + + + + | 12/17/ | Office | Oncology | Yancy Clifford MD | | | 2019 | Visit | | [address] | | | | | | [place] | | | | | | [address] | | | | | | | | +--------+ + + + + | 12/17/ | Appointment | Infusion Therapy | Yancy Clifford MD | | | 2019 | | | [address] | | | | | | [place] | | | | | | [address] | | | | | | | | +--------+ + + + + | 01/07/ | Appointment | Infusion Therapy | Yancy Clifford MD | | | 2019 | | | [address] | | | | | | [place] | | | | | | [address] | | | | | | | | +--------+ + + + + | 01/07/ | Office | Oncology | Yancy Clifford MD | | | 2019 | Visit | | [address] | | | | | | [place] | | | | | | [address] | | | | | | | | +--------+ + + + + | 01/07/ | Appointment | Infusion Therapy | Yancy Clifford MD | | | 2019 | | | [address] | | | | | | [place] | | | | | | [address] | | | | | | | | +--------+ + + + + documented as of this encounter Visit Diagnoses Not on filedocumented in this encounter"
--- OUTSIDE RECORDS SUMMARY | ~2019-12-08 | XMS | Encounter Summary ---
Demographics + + + | Address | [address] | | | [place] [address] | + + + | Home Phone [...] | | | | | [place] [address] | | + + + + + | Emory Larios | ECON | Unknown | | + + + + + Care Team Providers + +------+ + | Care Payment Specialist Name | Role | Phone | + +------+ + PCP | Unavailable | + +------+ + Encounter Details +--------+ + + + + | Date | Type | Department | Care Team | Description | +--------+ + + + + | 07/02/ | Orders Only | [facility] | Yancy Clifford MD | | | 2018 | | INFUSION SUPPORT | [address] | | | | | SERVICES [address] | [place] | | | | | [address] [place] | [address] | | | | | [address] [place] | | | | | | [address] | | | | | | [phone] | | | +--------+ + + + [...] 07/02/19 1305 Encounter Date: 07/02/2019 Status: Signed Chief Arson Division: Laila Jones RN (Registered Nurse) Port accessed. [...] [place] | | | | | | [address] | | | | | | | | +--------+ + + + + | 12/17/ | Appointment | Infusion Therapy | Yancy Clifford MD | | | 2019 | | | [address] | | | | | | [place] | | | | | | [address] | | | | | | | | +--------+ + + + + | 01/07/ | Appointment | Infusion Therapy | Yancy Clifford MD | | | 2019 | | | [address] | | | | | | [place] | | | | | | [address] | | | | | | | | +--------+ + + + + | 01/07/ | Office | Oncology | Yancy Clifford MD | | | 2019 | Visit | | [address] | | | | | | [place] | | | | | | [address] | | | | | | | | +--------+ + + + + | 01/07/ | Appointment | Infusion Therapy | Yancy Clifford MD | | | 2019 | | | [address] | | | | | | [place] | | | | | | [address] | | | | | | | [...] - 1.030 | EXTERNAL | | | [place] | | | LAB | | + [...]
--- OUTSIDE RECORDS SUMMARY | ~2019-12-08 | XMS | Encounter Summary ---
Demographics + + + | Address | [address] | | | [place] [address] | + + + | Home Phone [...] | | | | [place] [address] | | + + + + + | Emory Larios | ECON | Unknown | | + + + + + Care Team Providers + +------+ + | Care Supervisor Scouring Pads Name | Role | Phone | + +------+ + | Shannan Deng | PCP | | + +------+ + Encounter Details +--------+ + + + + | Date | Type | Department | Care Team | Description | +--------+ + + + + | 07/05/ | Orders Only | [facility] | Lizzette Yumiko, | | | 2019 | | HEMATOLOGY AND | RN | | | | | ONCOLOGY [address] | | | | | | [address] | | | | | | [place] | | | | | | [address] | | | | | | [phone] | | | +--------+ + + + [...] [place] | | | | | | [address] | | | | | | | | +--------+ + + + + | 12/17/ | Office | Oncology | Yancy Clifford MD | | | 2019 | Visit | | [address] | | | | | | [place] | | | | | | [address] | | | | | | | | +--------+ + + + + | 12/17/ | Appointment | Infusion Therapy | Yancy Clifford MD | | | 2019 | | | [address] | | | | | | [place] | | | | | | [address] | | | | | | | | +--------+ + + + + | 01/07/ | Appointment | Infusion Therapy | Yancy Clifford MD | | | 2019 | | | [address] | | | | | | [place] | | | | | | [address] | | | | | | | | +--------+ + + + + | 01/07/ | Office | Oncology | Yancy Clifford MD | | | 2019 | Visit | | [address] | | | | | | [place] | | | | | | [address] | | | | | | | | +--------+ + + + + | 01/07/ | Appointment | Infusion Therapy | Yacny Clifford MD | | | 2019 | | | [address] | | | | | | [place] | | | | | | [address] | | | | | | | | +--------+ + + + + documented as of this encounter Visit Diagnoses Not on filedocumented in this encounter"
--- OUTSIDE RECORDS SUMMARY | ~2019-12-08 | XMS | Encounter Summary ---
Demographics + + + | Address | [address] | | | [place] [address] | + + + | Home Phone [...] | | | | [place] [address] | | + + + + + | Emory Larios | ECON | Unknown | | + + + + + Care Team Providers + +------+ + | Care Applications Development Consultant Name | Role | Phone | + [...] | | | (HCC) | AVE | [place] | | | | | Encounter | [place], | [address] | | | | | for | [place] [address] | Phone: | | | | | antineoplast | Phone: | [phone] | | | | | ic | [phone] | Fax: | | | | | chemotherapy | Fax: | [phone] | | | | | Peritoneal | [phone] | | | | | | | [...] + + | 08/13/ | Office | [facility] | Scott Boswell MD | Personal history of | | 2019 | Visit | PULMONOLOGY [address] | tobacco use, | | | | [address] | [place], [place] | presenting hazards | | | | [place], [place] | [address] | to health (Primary | | | | [address] | | Dx); Mild | | | | [phone] | | intermittent asthma, | | | [...] Boswell MD Pulmonary and Critical Care Medicine [facility] [address] , [place] [address] documented in this enco unter Plan of [...] [place] | | | | | | [address] | | | | | | | | +--------+ + + + + | 12/17/ | Office | Oncology | Yancy Clifford MD | | | 2019 | Visit | | [address] | | | | | | [place] | | | | | | [address] | | | | | | | | +--------+ + + + + | 12/17/ | Appointment | Infusion Therapy | Yancy Clifford MD | | | 2019 | | | [address] | | | | | | [place] | | | | | | [address] | | | | | | | | +--------+ + + + + | 01/07/ | Appointment | Infusion Therapy | Yancy Clifford MD | | | 2019 | | | [address] | | | | | | [place] | | | | | | [address] | | | | | | | | +--------+ + + + + | 01/07/ | Office | Oncology | Yancy Clifford MD | | | 2019 | Visit | | [address] | | | | | | [place] | | | | | | [address] | | | | | | | | +--------+ + + + + | 01/07/ | Appointment | Infusion Therapy | Yancy Clifford MD | | | 2019 | | | [address] | | | | | | [place] | | | | | | [address] | | | | | | | | +--------+ + + + + documented as of this encounter Visit Diagnoses + + | Diagnosis | + + | Personal history of tobacco use, presenting hazards to health - Primary | + + | Mild intermittent asthma, unspecified whether complicated | + + documented in this encounter"
--- OUTSIDE RECORDS SUMMARY | ~2019-12-08 | XMS | Encounter Summary ---
Demographics + + + | Address | [address] [address] | | | [place] [address] | + + + | Home Phone | | + + + | Preferred Language | Unknown | + + + | Marital Status | | + + + | Yazidi Affiliation | Unknown | + + + | Race | Unknown | + + + | Ethnic Group | Unknown | + + + Author + + + | Author | [facility] | | | and [place] | + + + | Organization | [facility] | | [...] | | | | [place] [address] | | + + + + + | Emory Larios | ECON | Unknown | | + + + + + Care Team Providers + +------+ + | Care Video Intern Name | Role | Phone | [...] + + | 07/23/ | Office | [facility] | Yancy Clifford MD | Malignant neoplasm | | 2019 | Visit | HEMATOLOGY AND | [address] | of left ovary (HCC) | | | | ONCOLOGY [address] | [place] | (Primary Dx); | [address] | [id number] | Chemotherapy | | | | [place] | | management, | | | | [address] | | encounter for | | | | [phone] | | | +--------+---------+ + + + [...] 05/2017 Genetic Testing Negative genetic testing through [employer]. 07/2017 Surgery S/p debulking surgery. Final pathology [...] Estimate 07/23/2019 ADEQUATE Final Testing Performed at [facility], [address], [address], [place] [address] Na 07/23/2019 140 135 - 145 mmol/L [...] MDRD IDMS traceable equation. Testing Performed at [facility], [address], [address], [place] [address] Color, UA 07/23/2019 YELLOW Final Clarity, UA 07/23/2019 CLEAR Final Specific [place], Urine 07/23/2019 1.025 1.002 - 1.030 Final [...] NEGATIVE NEG mg/dL Final Testing Performed at [facility], [address], [address], [place] [address] WBC UA 07/23/2019 0-2 0 - 5 /hpf Final RBC UA 07/23/2019 NONE SEEN 0 - 5 /hpf Final SQUAMOUS EPITHELIAL UA 07/23/2019 6-10 /lpf Final BACTERIA UA 07/23/2019 NONE SEEN NONE Final MUCUS UA 07/23/2019 1+ Final Testing Performed at [facility], [address], [address], [place] [address] PRO/CREA RATIO,URINE 07/23/2019 0.320 Final Testing performed at [facility];[address] [facility];[place] [address] Creatinine, random urine 07/23/2019 172.0 mg/dL Final Comment: NO NORMAL RANGE ESTABLISHED Testing performed at [facility];[address] [facility];[place] [address] Protein, Urine 07/23/2019 55 mg/dL Final Comment: NO NORMAL RANGE ESTABLISHED Testing performed at [facility];[address] [facility];[place] [address] Imaging: Assessment: ECO 59 yo lady with [...] examining the patient, review of medical records, legal counsel ing, coordination of care, and CPOE. More [...] [place] | | | | | | [address] | | | | | | | | +--------+ + + + + | 12/17/ | Office | Oncology | Yancy Clifford MD | | | 2019 | Visit | | [address] | | | | | | [place] | | | | | | [address] | | | | | | | | +--------+ + + + + | 12/17/ | Appointment | Infusion Therapy | Yancy Clifford MD | | | 2019 | | | [address] | | | | | | [place] | | | | | | [address] | | | | | | | | +--------+ + + + + | 01/07/ | Appointment | Infusion Therapy | Yancy Clifford MD | | | 2019 | | | [address] | | | | | | [place] | | | | | | [address] | | | | | | | | +--------+ + + + + | 01/07/ | Office | Oncology | Yancy Clifford MD | | | 2019 | Visit | | [address] | | | | | | [place] | | | | | | [address] | | | | | | | | +--------+ + + + + | 01/07/ | Appointment | Infusion Therapy | Yancy Clifford MD | | | 2019 | | | [address] | | | | | | [place] | | | | | | [address] | | | | | | | [...] LAB | | | | performed at [facility];[address] | | [facility] | | | | [address] | | LABORATORY | | | | [address];[place] [address] | | | | | | | | | | + + + + + + + + | Specimen | + + | | + + + + + + + | Performing | Address | City/State/Zipcode | Phone Number | | Organization | | | | + + + + + | REFERENCE LAB | [address] | [place] [address] | [phone] | | [facility] | Blvd[address] | | | | LABORATORY | | | | + + + + + | REFERENCE LAB | [address] | [place] [address] | | | [facility] | Bl[address] | [...] | | | urine | performed at [facility];[address] | | [facility] | | | | [place] | | LABORATORY | | | | Blvd;[place] [address] | | | | | | | | | | + + + + + + + + | Specimen | + + | | + + + + + + + | Performing | Address | City/State/Zipcode | Phone Number | | Organization | | | | + + + + + | REFERENCE LAB | [address] | [place] [address] | [phone] | | [facility] | Blvd[address] | | | | LABORATORY | | | | + + + + + | REFERENCE LAB | [address] | [place] [address] | | | [facility] | Bl[address] | [...] | | | RATIO,URINE | performed at [facility];[address] | | LAB | | | | [facility] | | [facility] | | | | Blvd;[place] [address] | | LABORATORY | | + + + + + + + + | Specimen | + + | | + + + + + + + | Performing | Address | City/State/Zipcode | Phone Number | | Organization | | | | + + + + + | REFERENCE LAB | [address] [place] [address] | [place] [address] | [phone] | | [facility] | Blvd[address] | | | | LABORATORY | | | | + + + + + | REFERENCE LAB | [address] [place] [address] | [place] [address] | | | [facility] | Bl[address] | [...] | | LABORATORY | | | | [address] | | | | + + + + + + + + | Specimen | + + | | + + + + + + + | Performing | Address | City/State/Zipcode | Phone Number | | Organization | | | | + + + + + | REFERENCE LAB | [address] | [place] [address] | [phone] | | [facility] | Bl[address] | | | | LABORATORY | | | | + + + + + | REFERENCE LAB | [address] | [place] [address] | | | [facility] | Bl[address] | [...] - 1.030 | REFERENCE | | | [place], | | | LAB | | | [...] | | LABORATORY | | | | [address] | | | | + + + + + + + + | Specimen | + + | | + + + + + + + | Performing | Address | City/State/Zipcode | Phone Number | | Organization | | | | + + + + + | REFERENCE LAB | [address] | [place] [address] | [phone] | | [facility] | Blvd[address] | | | | LABORATORY | | | | + + + + + | REFERENCE LAB | [address] | [place] [address] | | | [facility] | Bl[address] | [...] | | | | | Performed at [facility], [address] | | | | | | [address] | | | | | | [address], [place], [place] | | | | | | [address] | | | | + + + + + + + + | Specimen | + + | | + + + + + + + | Performing | Address | City/State/Zipcode | Phone Number | | Organization | | | | + + + + + | REFERENCE LAB | [address] [place] [address] | [place] [address] | [phone] | | [facility] | Bl[address] | | | | LABORATORY | | | | + + + + + | REFERENCE LAB | [address] [place] [address] | [place] [address] | | | [facility] | Bl[address] | [...] | | LABORATORY | | | | [address] | | | | + + + + + + + + | Specimen | + + | | + + + + + + + | Performing | Address | City/State/Zipcode | Phone Number | | Organization | | | | + + + + + | REFERENCE LAB | [address] [place] [address] | [place] [address] | [phone] | | [facility] | Blvd[address] | | | | LABORATORY | | | | + + + + + | REFERENCE LAB | [address] [place] [address] | [place] [address] | | | [facility] | Blvd[address] | [...]
--- OUTSIDE RECORDS SUMMARY | ~2019-12-08 | XMS | Encounter Summary ---
Demographics + + + | Address | [address] [address] | | | [place] [address] | + + + | Home Phone | | + + + | Preferred Language | Unknown | + + + | Marital Status | | + + + | Restoration Affiliation | Unknown | + + + | Race | Unknown | + + + | Ethnic Group | Unknown | + + + Author + + + | Author | [facility] | | | and [place] | + + + | Organization | [facility] | | [...] | | | | [place] [address] | | + + + + + | Emory Larios | ECON | Unknown | | + + + + + Care Team Providers + +------+ + | Care Staging Technician Name | Role | Phone | [...] | | | 2018 | | [address] [facility] | [address] | | | | | [facility] | [place] | | | | | [address] | [id number] | | | | | [phone] | | | +--------+ + + + [...] [place] | | | | | | [address] | | | | | | | | +--------+ + + + + | 12/17/ | Office | Oncology | Yancy Clifford MD | | | 2019 | Visit | | [address] | | | | | | [place] | | | | | | [address] | | | | | | | | +--------+ + + + + | 12/17/ | Appointment | Infusion Therapy | Yancy Clifford MD | | | 2019 | | | [address] | | | | | | [place] | | | | | | [address] | | | | | | | | +--------+ + + + + | 01/07/ | Appointment | Infusion Therapy | Yancy Clifford MD | | | 2019 | | | [address] | | | | | | [place] | | | | | | [address] | | | | | | | | +--------+ + + + + | 01/07/ | Office | Oncology | Yancy Clifford MD | | | 2019 | Visit | | [address] | | | | | | [place] | | | | | | [address] | | | | | | | | +--------+ + + + + | 01/07/ | Appointment | Infusion Therapy | Yancy Clifford MD | | | 2019 | | | [address] | | | | | | [place] | | | | | | [address] | | | | | | | [...] | | | | using the MDRD IDWI | | | | | | traceable [...]
--- OUTSIDE RECORDS SUMMARY | ~2019-12-08 | XMS | Encounter Summary ---
Demographics + + + | Address | [address] [address] [facility] [address] | | | [place] [address] | + + + | Home Phone | | + + + | Preferred Language | Unknown | + + + | Marital Status | | + + + | Mormonism Affiliation | Unknown | + + + | Race | Unknown | + + + | Ethnic Group | Unknown | + + + Author + + + | Author | [facility] | | | and [place] | + + + | Organization | [facility] | | | [...] | | | | [place] [address] | | + + + + + | Emory Larios | ECON | Unknown | | + + + + + Care Team Providers + +------+ + | Care Loan Analyst Name | Role | Phone | + +------+ + | Shannan Deng | PCP | | + +------+ + Encounter Details +--------+ + + + + | Date | Type | Department | Care Team | Description | +--------+ + + + + | 08/13/ | Hospital | [facility] | Yancy Clifford MD | 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) | | | | SERVICES [address] | [place] | (Primary Dx) | | | | [address] [place] | [id number] | | | | | [address] [place] | | | | | | [address] | Sushma Marquis | | | | | [phone] | Tiana RN | | +--------+ + [...] | | | 2019 | | | [address] | | | | | | [place] | | | | | | [address] | | | | | | | | +--------+ + + + + | 12/17/ | Office | Oncology | Yancy Clifford MD | | 2019 | Visit | | [address] | | | | | | [place] | | | | | | [address] | | | | | | | | +--------+ + + + + | 12/17/ | Appointment | Infusion Therapy | Yancy Clifford MD | | | 2019 | | | [address] | | | | | | [place] | | | | | | [address] | | | | | | | | +--------+ + + + + | 01/07/ | Appointment | Infusion Therapy | Yancy Clifford MD | | | 2019 | | | [address] | | | | | | [place] | | | | | | [address] | | | | | | | | +--------+ + + + + | 01/07/ | Office | Oncology | Yancy Clifford MD | | | 2019 | Visit | | [address] | | | | | | [place] | | | | | | [address] | | | | | | | | +--------+ + + + + | 01/07/ | Appointment | Infusion Therapy | Yancy Clifford MD | | | 2020 | | | [address] | | | | | | [place] | | | | | | [address] | | | | | | | [...] | | | RATIO,URINE | performed at [facility];[address] | | LAB | | | | [facility] | | [facility] | | | | [address];[place] [address] | | LABORATORY | | + + + + + + + + | Specimen | + + | Urine | + + + + + + + | Performing | Address | City/State/Zipcode | Phone Number | | Organization | | | | + + + + + | REFERENCE LAB | [address] [place] [address] | [place] [address] | [phone] | | [facility] | Blvd. | | | | LABORATORY | | | | + + + + + | REFERENCE LAB | [address] [place] [address] | [place] [address] | | | [facility] | Blvd. | [...] [facility] | | | | Blvd;[place] [address] | | LABORATORY | | + + + + + + | K | 4.3Comment: Testing | 3.5 - 4.9 | REFERENCE | | | | performed at [facility];[address] | mmol/L | LAB | | | | [place] | | [facility] | | | | Bl[address];[place] [address] | | LABORATORY | | + + + + + + | Cl | 106Comment: Testing | 99 - 109 mmol/L | REFERENCE | | | | performed at [facility];[address] | | LAB | | | | [place] | | [facility] | | | | Bl[address];[place] [address] | | LABORATORY | | + + + + + + | CO2 | 27Comment: Testing | 23 - 32 mmol/L | REFERENCE | | | | Performed at [facility], [address] | | LAB | | | | [address] | | [facility] | | | | [address], [place] | | LABORATORY | | | | [address] | | | | + + + + + + | Anion Gap | 9Comment: Testing | 5 - 20 mmol/L | REFERENCE | | | | performed at [facility];[address] | | LAB | | | | [place] | | [facility] | | | | Bl[address];[place] [address] | | LABORATORY | | + + [...] [place] | | | | | | [address] | | | | + + + + + + + + | Specimen | + + | Blood | + + + + + + + | Performing | Address | City/State/Zipcode | Phone Number | | Organization | | | | + + + + + | REFERENCE LAB | [address] | [place] [address] | [phone] | | [facility] | Blvd. | | | | LABORATORY | | | | + + + + + | REFERENCE LAB | [address] [facility] | [place] [address] | | | [facility] | Blvd. | [...] | | | Estimate | Performed at [facility], [address] | | LAB | | | | [address] | | [facility] | | | | [address], [place] | | LABORATORY | | | | [address] | | | | + + + + + + + + | Specimen | + + | Blood | + + + + + + + | Performing | Address | City/State/Zipcode | Phone Number | | Organization | | | | + + + + + | REFERENCE LAB | [address] [facility] | [place] [address] | [phone] | | [facility] | Blvd. | | | | LABORATORY | | | | + + + + + | REFERENCE LAB | [address] [facility] | [place] [address] | | | [facility] | Blvd. | [...] | | | | | performed at [facility];[address] | | | | | | [facility] | | | | | | [facility];[place] [address] | | | | | | | | | | + + + + + + + + | Specimen | + + | Blood | + + + + + + + | Performing | Address | City/State/Zipcode | Phone Number | | Organization | | | | + + + + + | REFERENCE LAB | [address] [place] [address] | [place] [address] | [phone] | | [facility] | Blvd. | | | | LABORATORY | | | | + + + + + | REFERENCE LAB | [address] [facility] | [place] [address] | | | [facility] | Blvd. | [...] | | LABORATORY | | | | [address] | | | | + + + + + + + + | Specimen | + + | Blood | + + + + + + + | Performing | Address | City/State/Zipcode | Phone Number | | Organization | | | | + + + + + | REFERENCE LAB | [address] [place] [address] | [place] [address] | [phone] | | [facility] | Blvd. | | | | LABORATORY | | | | + + + + + | REFERENCE LAB | [address] [place] [address] | [place] [address] | | | [facility] | Blvd. | [...] - 1.030 | REFERENCE | | | [place], | | | LAB | | | [...] REFERENCE | | | | Performed at [facility], [address] | | LAB | | | | [address] | | [facility] | | | | [address], [place] | | LABORATORY | | | | [address] | | | | + + + + + + + + | Specimen | + + | Urine | + + + + + + + | Performing | Address | City/State/Zipcode | Phone Number | | Organization | | | | + + + + + | REFERENCE LAB | [address] [place], [place] [address]andrez | [place] [address] | [phone] | | [facility] | Blvd. | | | | LABORATORY | | | | + + + + + | REFERENCE LAB | [address] [place], [place] [address]andrez | [place] [address] | | | [facility] | Blvd. | [...] [facility] | | | | Blvd;[place] [address] | | LABORATORY | | + + + + + + | K | 4.3Comment: Testing | 3.5 - 4.9 | REFERENCE | | | | performed at [facility];[address] | mmol/L | LAB | | | | [place] | | [facility] | | | | Blvd;[place] [address] | | LABORATORY | | + + + + + + | Cl | 105Comment: Testing | 99 - 109 mmol/L | REFERENCE | | | | performed at [facility];[address] | | LAB | | | | [place] | | [facility] | | | | Blvd;[place] [address] | | LABORATORY | | + + + + + + | CO2 | 26Comment: Testing | 23 - 32 mmol/L | REFERENCE | | | | Performed at [facility], [address] | | LAB | | | | [address] | | [facility] | | | | [address], [place] | | LABORATORY | | | | [address] | | | | + + + + + + | Anion Gap | 11Comment: Testing | 5 - 20 mmol/L | REFERENCE | | | | performed at [facility];[address] | | LAB | | | | [address] | | [facility] | | | | Blvd;[place] [address] | | LABORATORY | | + + [...] | | | | | Performed at [facility], [address] | | | | | | [address] | | | | | | [address], [place] | | | | | | [address] | | | | + + + + + + + + | Specimen | + + | Blood | + + + + + + + | Performing | Address | City/State/Zipcode | Phone Number | | Organization | | | | + + + + + | REFERENCE LAB | [address] [facility] | [place] [address] | [phone] | | [facility] | Blvd. | | | | LABORATORY | | | | + + + + + | REFERENCE LAB | [address] [facility] | [place] [address] | | | [facility] | Blvd. | [...] | | LABORATORY | | | | [address] | | | | + + + + + + + + | Specimen | + + | Blood | + + + + + + + | Performing | Address | City/State/Zipcode | Phone Number | | Organization | | | | + + + + + | REFERENCE LAB | [address] [facility] | [place] [address] | [phone] | | [facility] | Blvd. | | | | LABORATORY | | | | + + + + + | REFERENCE LAB | [address] [facility] | [place] [address] | | | [facility] | Blvd. | [...] [facility] | | | | Blvd;[place] [address] | | LABORATORY | | + + + + + + | K | 4.1Comment: Testing | 3.5 - 4.9 | REFERENCE | | | | performed at [facility];[address] | mmol/L | LAB | | | | [place] | | [facility] | | | | Blvd;[place] [address] | | LABORATORY | | + + + + + + | Cl | 104Comment: Testing | 99 - 109 mmol/L | REFERENCE | | | | performed at [facility];[address] | | LAB | | | | [place] | | [facility] | | | | Blvd;[place] [address] | | LABORATORY | | + + + + + + | CO2 | 26Comment: Testing | 23 - 32 mmol/L | REFERENCE | | | | Performed at [facility], [address] | | LAB | | | | [address] | | [facility] | | | | [address], [place] | | LABORATORY | | | | [address] | | | | + + + + + + | Anion Gap | 10Comment: Testing | 5 - 20 mmol/L | REFERENCE | | | | performed at [facility];[address] | | LAB | | | | [place] | | [facility] | | | | Blvd;[place] [address] | | LABORATORY | | + + [...] | | | | | | MDRD IDTN traceable | | | | | | equation.Testing | | | | | | Performed at [facility], [address] | | | | | | [facility] | | | | | | [address], [place] | | | | | | [address] | | | | + + + + + + + + | Specimen | + + | Blood | + + + + + + + | Performing | Address | City/State/Zipcode | Phone Number | | Organization | | | | + + + + + | REFERENCE LAB | [address] [facility] | [place] [address] | [phone] | | [facility] | Blvd. | | | | LABORATORY | | | | + + + + + | REFERENCE LAB | [address] [facility] | [place] [address] | | | [facility] | Blvd. | [...] | | LABORATORY | | | | [address] | | | | + + + + + + + + | Specimen | + + | Blood | + + + + + + + | Performing | Address | City/State/Zipcode | Phone Number | | Organization | | | | + + + + + | REFERENCE LAB | [address] [facility] | [place] [address] | [phone] | | [facility] | Blvd. | | | | LABORATORY | | | | + + + + + | REFERENCE LAB | [address] | [place] [address] | | | [facility] | Blvd. | [...] | | | | | Performed at [facility], [address] | | | | | | [address] | | | | | | [address], [place] | | | | | | [address] | | | | + + + + + + + + | Specimen | + + | Blood | + + + + + + + | Performing | Address | City/State/Zipcode | Phone Number | | Organization | | | | + + + + + | REFERENCE LAB | [address] [facility] | [place] [address] | [phone] | | [facility] | Blvd. | | | | LABORATORY | | | | + + + + + | REFERENCE LAB | [address] [facility] | [place] [address] | | | [facility] | Blvd. | [...] | | LABORATORY | | | | [address] | | | | + + + + + + + + | Specimen | + + | Blood | + + + + + + + | Performing | Address | City/State/Zipcode | Phone Number | | Organization | | | | + + + + + | REFERENCE LAB | [address] [facility] | [place] [address] | [phone] | | [facility] | Blvd. | | | | LABORATORY | | | | + + + + + | REFERENCE LAB | [address] [facility] | [place] [address] | | | [facility] | Blvd. | [...] [place] | | | | | | [address] | | | | + + + + + + + + | Specimen | + + | | + + + + + + + | Performing | Address | City/State/Zipcode | Phone Number | | Organization | | | | + + + + + | REFERENCE LAB | [address] [place] [address] | [place] [address] | [phone] | | [facility] | Blvd. | | | | LABORATORY | | | | + + + + + | REFERENCE LAB | [address] [place] [address] | [place] [address] | | | [facility] | Blvd. | [...] LAB | | | | performed at [facility];[address] | | [facility] | | | | [place] | | LABORATORY | | | | [place]vd;[place] [address] | | | | | | | | | | + + + + + + + + | Specimen | + + | | + + + + + + + | Performing | Address | City/State/Zipcode | Phone Number | | Organization | | | | + + + + + | REFERENCE LAB | [address] [place] [address] | [place] [address] | [phone] | | [facility] | Blvd. | | | | LABORATORY | | | | + + + + + | REFERENCE LAB | [address] [place] [address] | [place] [address] | | | [facility] | Blvd. | [...] | | | urine | performed at [facility];[address] | | [facility] | | | | [place] | | LABORATORY | | | | [place]vd;[place] [address] | | | | | | | | | | + + + + + + + + | Specimen | + + | | + + + + + + + | Performing | Address | City/State/Zipcode | Phone Number | | Organization | | | | + + + + + | REFERENCE LAB | [address] [facility] | [place] [address] | [phone] | | [facility] | Blvd. | | | | LABORATORY | | | | + + + + + | REFERENCE LAB | [address] [facility] | [place] [address] | | | [facility] | Blvd. | [...] - 1.030 | REFERENCE | | | [place], | | | LAB | | | [...] REFERENCE | | | | Performed at [facility], [address] | | LAB | | | | [address] | | [facility] | | | | [address] | | LABORATORY | | | | [address] | | | | + + + + + + + + | Specimen | + + | | + + + + + + + | Performing | Address | City/State/Zipcode | Phone Number | | Organization | | | | + + + + + | REFERENCE LAB | [address] [facility] | [place] [address] | [phone] | | [facility] | Blvd. | | | | LABORATORY | | | | + + + + + | REFERENCE LAB | [address] [facility] | [place] [address] | | | [facility] | Blvd. | [...] | | | RATIO,URINE | performed at [facility];[address] | | LAB | | | | [place] | | [facility] | | | | [place]vd;[place] [address] | | LABORATORY | | + + + + + + + + | Specimen | + + | | + + + + + + + | Performing | Address | City/State/Zipcode | Phone Number | | Organization | | | | + + + + + | REFERENCE LAB | [address] [place] [address] | [place] [address] | [phone] | | [facility] | Blvd. | | | | LABORATORY | | | | + + + + + | REFERENCE LAB | [address] [place] [address] | [place] [address] | | | [facility] | Blvd. | [...] [place] | | | | | | [address] | | | | + + + + + + + + | Specimen | + + | | + + + + + + + | Performing | Address | City/State/Zipcode | Phone Number | | Organization | | | | + + + + + | REFERENCE LAB | [address] [facility] | [place] [address] | [phone] | | [facility] | Blvd. | | | | LABORATORY | | | | + + + + + | REFERENCE LAB | [address] | [place] [address] | | | [facility] | Blvd. | [...] LAB | | | | Performed at [facility], [address] | | [facility] | | | | [address] | | LABORATORY | | | | [address], [place] | | | | | | [address] | | | | + + + + + + + + | Specimen | + + | | + + + + + + + | Performing | Address | City/State/Zipcode | Phone Number | | Organization | | | | + + + + + | REFERENCE LAB | [address] | [place] [address] | [phone] | | [facility] | Blvd. | | | | LABORATORY | | | | + + + + + | REFERENCE LAB | [address] | [place] [address] | | | [facility] | Blvd. | [...]
--- OUTSIDE RECORDS SUMMARY | ~2019-12-08 | XMS | Encounter Summary ---
Demographics + + + | Address | [address] | | | [place] [address] | + + + | Home Phone | | + + + | Preferred Language | Unknown | + + + | Marital Status | | + + + | Yazidism Affiliation | Unknown | + + + | Race | Unknown | + + + | Ethnic Group | Unknown | + + + Author + + + | Author | [facility] | | | and [place] | + + + | Organization | [facility] | | | [...] | | | | [place] [address] | | + + + + + | Emory Larios | ECON | Unknown | | + + + + + Care Team Providers + +------+ + | Care Vasc Tech Name | Role | Phone | + +------+ + PCP | Unavailable | + +------+ + Encounter Details +--------+ + + + + | Date | Type | Department | Care Team | Description | +--------+ + + + + | 07/08/ | Hospital | [facility] | Conversion | Chronic deep vein | | 2018 | Encounter | [facility] | Transaction, | thrombosis (DVT) of | | | | ULTRASOUND [address] | Provider Unknown | other vein of right | | | | [address] | [phone] | upper extremity | | | | [place], [place] | | (HCC); Malignant | | | | [address] | Yancy Clifford MD [address] | neoplasm of both | | | | [phone] | [address] | ovaries (HCC) | | | | | [place] [address] | | | | | | [phone] | | | | | | | [...] Gardenia Seo CMA Service: (none) Author Type: Subway Repair Supervisor Filed: 07/30/18 6994 Date of Service: 07/08/182358 Status: Signed Tarp Repairer: Gardenia Seo CMA (Subway Repair Supervisor) Message informed to patient. docume nted in [...] [place] | | | | | | [address] | | | | | | | | +--------+ + + + + | 12/17/ | Office | Oncology | Yancy Clifford MD | | | 2019 | Visit | | [address] | | | | | | [place] | | | | | | [address] | | | | | | | | +--------+ + + + + | 12/17/ | Appointment | Infusion Therapy | Yancy Clifford MD | | | 2019 | | | [address] | | | | | | [place] | | | | | | [address] | | | | | | | | +--------+ + + + + | 01/07/ | Appointment | Infusion Therapy | Yancy Clifford MD | | | 2019 | | | [address] | | | | | | [place] | | | | | | [address] | | | | | | | | +--------+ + + + + | 01/07/ | Office | Oncology | Yancy Clifford MD | | | 2019 | Visit | | [address] | | | | | | [place] | | | | | | [address] | | | | | | | | +--------+ + + + + | 01/07/ | Appointment | Infusion Therapy | Yancy Clifford MD | | | 2019 | | | [address] | | | | | | [place] | | | | | | [address] | | | | | | | [...]
--- OUTSIDE RECORDS SUMMARY | ~2019-12-08 | XMS | Encounter Summary ---
Demographics + + + | Address | [address] [facility] [address] | | | [place] [address] | + + + | Home Phone [...] | | | | [place] [address] | | + + + + + | Emory Larios | ECON | Unknown | | + + + + + Care Team Providers + +------+ + | Care Lens Coater Name | Role | Phone | + [...] + + | 08/13/ | Office | [facility] | Yancy Clifford MD | Malignant neoplasm | | 2019 | Visit | HEMATOLOGY AND | [address] | of left ovary (HCC) | | | | ONCOLOGY [address] | [place] | (Primary Dx) | | | | [address] | [address] | | | | | [place] | | | | | | [address] | Jennyfer Calvert | | | | | [phone] | CIERRA Lou [address] | | | | | | [address] | | | | | | [place] [address] | | | | | | [phone] | | | | | | | [...] in this encounter Progress Notes Jennyfer Calvert, ACIDIZER - 08/13/2019 9:45 AM PDTFormatting of this note might be differ ent from the original. [facility] Hematology & Oncology Oncology Progress [...] 05/2017 Genetic Testing Negative genetic testing through [employer] 07/2017 Surgery S/p debulking surgery. Final [...] ANISO NORMAL PLT MORPH Testing Performed at [facility], [address] [facility], [address], [place] [address] Na 08/13/2019 139 135 - 145 mmol/L [...] MDRD IDMS traceable equation. Testing Performed at [facility], [address], [address], [place] [address] PRO/CREA RATIO,URINE 08/13/2019 0.293 Final Testing performed at [facility];[address] [employer] [facility];[place] [address] Color, UA 08/13/2019 YELLOW Final Clarity, UA 08/13/2019 CLEAR Final Specific [place], Urine 08/13/2019 1.025 1.002 - 1.030 Final [...] Performed at [facility], [address], [address], [place] [address] Creatinine, random urine 08/13/2019 167.0 mg/dL Final Comment: NO NORMAL RANGE ESTABLISHED Testing performed at [facility];[address] [facility];[place] [address] Protein, Urine 08/13/2019 49 mg/dL Final Comment: NO NORMAL RANGE ESTABLISHED Testing performed at [facility];[address] [facility];[place] [address] WBC UA 08/13/2019 0-2 0 - 5 /hpf Final RBC UA 08/13/2019 0-2 0 - 5 /hpf Final SQUAMOUS EPITHELIAL UA 08/13/2019 16-25 /lpf Final BACTERIA UA 08/13/2019 TRACE* NONE Final MUCUS UA 08/13/2019 4+ Final CASTS 08/13/2019 1-5 /lpf Final Comment: HYALINE Testing Performed at [facility], [address], [address], [place] [address] Ct Chest Abdomen Pelvis W Contrast Result [...] and coordination of care. CIERRA [place], MIKE [facility] Hematology Oncology 08/13/2019 Portions of this chart [...] [place] | | | | | | [address] | | | | | | | | +--------+ + + + + | 12/17/ | Office | Oncology | Yancy Clifford MD | | | 2019 | Visit | | [address] | | | | | | [place] | | | | | | [address] | | | | | | | | +--------+ + + + + | 12/17/ | Appointment | Infusion Therapy | Yancy Clifford MD | | | 2019 | | | [address] | | | | | | [place] | | | | | | [address] | | | | | | | | +--------+ + + + + | 01/07/ | Appointment | Infusion Therapy | Yancy Clifford MD | | | 2019 | | | [address] | | | | | | [place] | | | | | | [address] | | | | | | | | +--------+ + + + + | 01/07/ | Office | Oncology | Yancy Clifford MD | | | 2019 | Visit | | [address] | | | | | | [place] | | | | | | [address] | | | | | | | | +--------+ + + + + | 01/07/ | Appointment | Infusion Therapy | Yancy Clifford MD | | | 2019 | | | [address] | | | | | | [place] | | | | | | [address] | | | | | | | [...] | | | | | [facility];[address] [facility] | | | | | | [facility];[place] [address] | | | | | | | | | | + + + + + + + + | Specimen | + + | Blood | + + + + + + + | Performing | Address | City/State/Zipcode | Phone Number | | Organization | | | | + + + + + | REFERENCE LAB | [address] [place] [address] | [place] [address] | [phone] | | [facility] | Blvd. | | | | LABORATORY | | | | + + + + + | REFERENCE LAB | [address] [place] [address] | [place] [address] | | | [facility] | Blvd. 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
--- OUTSIDE RECORDS SUMMARY | ~2019-12-08 | XMS | Encounter Summary ---
Demographics + + + | Address | [address] [facility] [facility] [address] | | | [place] [address] | + + + | Home Phone | | + + + | Preferred Language | Unknown | + + + | Marital Status | | + + + | Anglican Affiliation | Unknown | + + + | Race | Unknown | + + + | Ethnic Group | Unknown | + + + Author + + + | Author | [facility] | | | and [place] | + + + | Organization | [facility] | [...] | | | | | [place] [address] | | + + + + + | Emory Larios | ECON | Unknown | | + + + + + Care Team Providers + +------+ + | Care Institutional Commodity Analyst Name | Role | Phone | + +------+ + PCP | Unavailable | + +------+ + Encounter Details +--------+ + + + + | Date | Type | Department | Care Team | Description | +--------+ + + + + | 01/15/ | Orders Only | [facility] | Yancy Clifford MD | | | 2019 | | HEMATOLOGY AND | [address] | | | | | ONCOLOGY INFUSIONS | [place], [place] | | | | | [address] | [address] | | | | | AVE [place], [place] | | | | | | [address] | | | | | | [phone] | | | +--------+ + + + [...] [place] | | | | | | [address] | | | | | | | | +--------+ + + + + | 12/17/ | Office | Oncology | Yancy Clifford MD | | | 2019 | Visit | | [address] | | | | | | [place] | | | | | | [address] | | | | | | | | +--------+ + + + + | 12/17/ | Appointment | Infusion Therapy | Yancy Clifford MD | | | 2019 | | | [address] | | | | | | [place] | | | | | | [address] | | | | | | | | +--------+ + + + + | 01/07/ | Appointment | Infusion Therapy | Yancy Clifford MD | | | 2019 | | | [address] | | | | | | [place] | | | | | | [address] | | | | | | | | +--------+ + + + + | 01/07/ | Office | Oncology | Yancy Clifford MD | | | 2019 | Visit | | [address] | | | | | | [place] | | | | | | [address] | | | | | | | | +--------+ + + + + | 01/07/ | Appointment | Infusion Therapy | Yancy Clifford MD | | | 2019 | | | [address] | | | | | | [place] | | | | | | [address] | | | | | | | [...] EXTERNAL | | | | [facility] (FORM[facility] [employer]) | | LAB | | | | [...] | | | | using the MDRD IDMT | | | | | | traceable [...]
--- OUTSIDE RECORDS SUMMARY | ~2019-12-08 | XMS | Encounter Summary ---
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 [address] | [place], [place] | | | | | left ovary | [address] | [address] | | | | | (HCC) | AVE | Phone: | | | | | Procedures | [place], | [phone] | | | | | CT Chest | [place] [address] | Fax: | | | | | Abdomen | Phone: | [phone] | | | | | Pelvis w | [phone] | | | | | | Contrast | Fax: | | | | | | | [phone] | | +--------+--------+ + + + + Reason for Visit + + + | Reason | Comments | + + + | Follow-up | Malignant neoplasm of left ovary | + + + Encounter Details +--------+---------+ + + + | Date | Type | Department | Care Team | Description | +--------+---------+ + + + | 10/15/ | Office | [facility] | Yancy Clifford MD | Malignant neoplasm | | 2019 | Visit | HEMATOLOGY AND | [address] | of left ovary (HCC) | | | | ONCOLOGY [address] | [place] | (Primary Dx) | | | | [address] | [address] | | | | | [place] | | | | | | [address] | Jennyfer Calvert | | | | | [phone] | CIERRA Lou [address] | | | | | [address] | | | | | | [place] [address] | | | | | | [phone] | | | | | | | [...] might be differ ent from the original. [facility] Oncology Progress Note Patient [...] 05/2017 Genetic Testing Negative genetic testing through [facility]. 07/2017 Surgery S/p debulking surgery. Final pathology [...] file Gets together: Not on file Attends shinto service: Not on file Active member of [...] 35 U/mL Final Comment: THE [facility] ([facility] [employer]IA [employer] IMMUNOASSAY METHOD IS USED. RESULTS OBTAINED WITH DIFFERENT ASSAY METHODS OR KITS CANNOT BE USED INTERCHANGEABLY. Testing performed at [facility];[address] [place] [address];[place] [address] Color, UA 10/15/2019 YELLOW Final Clarity, UA 10/15/2019 HAZY Final Specific [place], Urine 10/15/2019 1.025 1.002 - 1.030 Final [...] NEGATIVE NEG mg/dL Final Testing Performed at [facility], [address], [address], [place] [address] Na 10/15/2019 138 135 - 145 mmol/L Final Testing performed at [facility];[address] [place] [address];[place] [address] K 10/15/2019 4.3 3.5 - 4.9 mmol/L Final Testing performed at [facility];[address] [place] [address];[place] [address] Cl 10/15/2019 105 99 - 109 mmol/L Final Testing performed at [facility];[address] [place] [address];[place] [address] CO2 10/15/2019 26 23 - 32 mmol/L Final Testing Performed at [facility], [address], [address], [place] [address] Anion Gap 10/15/2019 11 5 - 20 mmol/L Final Testing performed at [facility];[address] [facility];[place] [address] Glucose 10/15/2019 145* 65 - 99 mg/dL [...] MDRD IDMS traceable equation. Testing Performed at [facility], [address], [address], [place] [address] WBC 10/15/2019 7.27 3.80 - 11.00 K/uL [...] - 0.10 K/uL Final Testing Performed at [facility], [address], [address], [place] [address] PRO/CREA RATIO,URINE 10/15/2019 0.508 Final Testing performed at [facility];[address] [place] [address];[place] [address] Creatinine, random urine 10/15/2019 120.0 mg/dL Final Comment: NO NORMAL RANGE ESTABLISHED Testing performed at [facility];[address] [place] [address];[place] [address] Protein, Urine 10/15/2019 61 mg/dL Final Comment: NO NORMAL RANGE ESTABLISHED Testing performed at [facility];[address] [place] [address];[place] [address] WBC UA 10/15/2019 NONE SEEN 0 - 5 /hpf Final RBC UA 10/15/2019 NONE SEEN 0 - 5 /hpf Final SQUAMOUS EPITHELIAL UA 10/15/2019 >100 /lpf Final BACTERIA UA 10/15/2019 NONE SEEN NONE Final MUCUS UA 10/15/2019 1+ Final CASTS 10/15/2019 0-2 /lpf Final Comment: COARSE GRANULAR Testing Performed at [facility], [address], [address], [place] [address] No results found. Assessment Ms. Ramila Baxter is a pleasant 59 y.o. female with: 1. 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 CIERRA Hartley, MIKE [facility] Oncology 10/15/2019 Portions of this chart [...] [place] | | | | | | [address] | | | | | | | | +--------+ + + + + | 12/17/ | Office | Oncology | Yancy Clifford MD | | | 2019 | Visit | | [address] | | | | | | [place] | | | | | | [address] | | | | | | | | +--------+ + + + + | 12/17/ | Appointment | Infusion Therapy | Yancy Clifford MD | | | 2019 | | | [address] | | | | | | [place] | | | | | | [address] | | | | | | | | +--------+ + + + + | 01/07/ | Appointment | Infusion Therapy | Yancy Clifford MD | | | 2019 | | | [address] | | | | | | [place] | | | | | | [address] | | | | | | | | +--------+ + + + + | 01/07/ | Office | Oncology | Yancy Clifford MD | | | 2019 | Visit | | [address] | | | | | | [place] | | | | | | [address] | | | | | | | | +--------+ + + + + | 01/07/ | Appointment | Infusion Therapy | Yancy Clifford MD | | | 2019 | | | [address] | | | | | | [place] | | | | | | [address] | | | | | | | [...]
--- OUTSIDE RECORDS SUMMARY | ~2019-12-08 | XMS | Encounter Summary ---
Demographics + + + | Address | [address] [facility] [address] | | | [place] [address] | + + + | Home Phone | | + + + | Preferred Language | Unknown | + + + | Marital Status | | + + + | Restorationist Affiliation | Unknown | + + + | Race | Unknown | + + + | Ethnic Group | Unknown | + + + Author + + + | Author | [facility] | | | and [place] | + + + | Organization | [facility] | | | [...] | | | | [place] [address] | | + + + + + | Emory Larios | ECON | Unknown | | + + + + + Care Team Providers + +------+ + | Care Emergency Medicine Physician Assistant Name | Role | Phone | + [...] 2019 | | [address] | Cae Engineer | of left ovary (HCC) | | | | [place] | | | | | | [address] | | | | | | [phone] | | | +--------+ + + + [...] | | | 2019 | | | [address] | | | | | | [place] | | | | | | [address] | | | | | | | | +--------+ + + + + | 12/17/ | Office | Oncology | Yancy Clifford MD | | | 2019 | Visit | | [address] | | | | | | [place] | | | | | | [address] | | | | | | | | +--------+ + + + + | 12/17/ | Appointment | Infusion Therapy | Yancy Clifford MD | | | 2019 | | | [address] | | | | | | [place] | | | | | | [address] | | | | | | | | +--------+ + + + + | 01/07/ | Appointment | Infusion Therapy | Yancy Clifford MD | | | 2019 | | | [address] | | | | | | [place] | | | | | | [address] | | | | | | | | +--------+ + + + + | 01/07/ | Office | Oncology | Yancy lCifford MD | | | 2019 | Visit | | [address] | | | | | | [place] | | | | | | [address] | | | | | | | | +--------+ + + + + | 01/07/ | Appointment | Infusion Therapy | Yancy Clifford MD | | | 2020 | | | [address] | | | | | | [place] | | | | | | [address] | | | | | | | [...] | | | | | | TCL;[address] | | | | [address];[place] [address] | | | | | | | | | | + + + + + + + + | Specimen | + + | Blood | + + + + + + + | Performing | Address | City/State/Zipcode | Phone Number | | Organization | | | | + + + + + | REFERENCE LAB | [address] | [place] [address] | [phone] | | [facility] | Blvd[address] | | | | LABORATORY | | | | + + + + + | REFERENCE LAB | [address] | [place] [address] | | | [facility] | Blvd. | | | | LABORATORY | | | | + + + + + documented in this encounter Visit Diagnoses + + | Diagnosis | + + | Malignant neoplasm of left ovary (HCC) Malignant neoplasm of ovary | + + documented in this encounter"
--- OUTSIDE RECORDS SUMMARY | ~2019-12-08 | XMS | Encounter Summary ---
Demographics + + + | Address | [address] [facility] [address] | | | [place] [address] | + + + | Home Phone | | + + + | Preferred Language | Unknown | + + + | Marital Status | | + + + | Catholic Affiliation | Unknown | + + + | Race | Unknown | + + + | Ethnic Group | Unknown | + + + Author + + + | Author | [facility] | | | and [place] | + + + | Organization | [facility] | | [...] | | | | [place] [address] | | + + + + + | Emory Larios | ECON | Unknown | | + + + + + Care Team Providers + +------+ + | Care Commutator Tester Name | Role | Phone | + [...] Closed | | Radiology | Diagnoses | [place], | [facility] [address] | | | | | Malignant | Jennyfer M, | [address] | | | | | neoplasm of | MANAGER EXCHANGE [address] | [place], [place] | | | | | left ovary | [address] | [address] | | | | | (HCC) | AVE | Phone: | | | | | Procedures | [place], | [phone] | | | | | CT Chest | [place] [address] | Fax: | | | | | Abdomen | Phone: | [phone] | | | | | Pelvis w | [phone] | | | | | | Contrast | Fax: | | | | | | | [phone] | | +--------+--------+ + + + + Reason for Visit Diagnostic/Screening (Urgent) +--------+--------+ + + + + | Status | Reason | Specialty | Diagnoses / | Referred By | Referred To | | | | | Procedures | Contact | Contact | +--------+--------+ + + + + | Closed | | Radiology | Diagnoses | [place], | [facility] [address] | | | | | Malignant | Jennyfer Lou, | [address] | | | | | neoplasm of | MANAGER EXCHANGE [address] | [place], [place] | | | | | left ovary | [address] | [address] | | | | | (HCC) | AVE | Phone: | | | | | Procedures | [place], | [phone] | | | | | CT Chest | [place] [address] | Fax: | | | | | Abdomen | Phone: | [phone] | | | | | Pelvis w | [phone] | | | | | | Contrast | Fax: | | | | | | | [phone] | | +--------+--------+ + + + + Encounter Details +--------+ + + + + | Date | Type | Department | Care Team | Description | +--------+ + + + + | 10/16/ | Hospital | [facility] | Jennyfer Calvert | Malignant neoplasm | | 2019 | Encounter | [facility] [address] | M, MANAGER EXCHANGE [address] | of left ovary (HCC) | | | | [address] | [address] | | | | | [place], [place] | [place] [address] | | | | | [address] | [phone] | | | | | [phone] | | | +--------+ + + + [...] [place] | | | | | | [address] | | | | | | | | +--------+ + + + + | 12/17/ | Office | Oncology | Yancy Clifford MD | | | 2019 | Visit | | [address] | | | | | | [place] | | | | | | [address] | | | | | | | | +--------+ + + + + | 12/17/ | Appointment | Infusion Therapy | Yancy Clifford MD | | | 2019 | | | [address] | | | | | | [place] | | | | | | [address] | | | | | | | | +--------+ + + + + | 01/07/ | Appointment | Infusion Therapy | Yancy Clifford MD | | | 2019 | | | [address] | | | | | | [place] | | | | | | [address] | | | | | | | | +--------+ + + + + | 01/07/ | Office | Oncology | Yancy Clifford MD | | | 2019 | Visit | | [address] | | | | | | [place] | | | | | | [address] | | | | | | | | +--------+ + + + + | 01/07/ | Appointment | Infusion Therapy | Yancy Clifford MD | | | 2019 | | | [address] | | | | | | [place] | | | | | | [address] | | | | | | | [...]
--- OUTSIDE RECORDS SUMMARY | ~2019-12-08 | XMS | Encounter Summary ---
Demographics + + + | Address | [address] [facility] [address] | | | [place] [address] | + + + | Home Phone | | + + + | Preferred Language | Unknown | + + + | Marital Status | | + + + | Samaritan Affiliation | Unknown | + + + [...] | | | | [place] [address] | | + + + + + | Emory Larios | ECON | Unknown | | + + + + + Care Team Providers + +------+ + | Care Accounting Bookkeeper Name | Role | Phone | + [...] Provider Unknown | | | | | [place], [place] | [phone] | | | | | [address] | | | | | | [phone] | | | +--------+ + + + [...] [place] | | | | | | [address] | | | | | | | | +--------+ + + + + | 12/17/ | Office | Oncology | Yancy Clifford MD | | | 2019 | Visit | | [address] | | | | | | [place] | | | | | | [address] | | | | | | | | +--------+ + + + + | 12/17/ | Appointment | Infusion Therapy | Yancy Clifford MD | | | 2019 | | | [address] | | | | | | [place] | | | | | | [address] | | | | | | | | +--------+ + + + + | 01/07/ | Appointment | Infusion Therapy | Yancy Clifford MD | | | 2019 | | | [address] | | | | | | [place] | | | | | | [address] | | | | | | | | +--------+ + + + + | 01/07/ | Office | Oncology | Yancy Clifford MD | | | 2019 | Visit | | [address] | | | | | | [place] | | | | | | [address] | | | | | | | | +--------+ + + + + | 01/07/ | Appointment | Infusion Therapy | Yancy Clifford MD | | | 2019 | | | [address] | | | | | | [place] | | | | | | [address] | | | | | | | | +--------+ + + + + documented as of this encounter Visit Diagnoses Not on filedocumented in this encounter"
--- OUTSIDE RECORDS SUMMARY | ~2019-12-08 | XMS | Encounter Summary ---
Demographics + + + | Address | [address] | | | [place] [address] [...] | | | | [place] [address] | | + + + + + | Emory Larios | ECON | Unknown | | + + + + + Care Team Providers + +------+ + | Care Bevel Polisher Name | Role | Phone | + [...] | | | Ascites, | [place], | [place] [address] | | | | | malignant | [place] [address] | Phone: | | | | | Procedures | Phone: | [phone] | | | | | [place] | [phone] | Fax: | | | | | [facility] | Fax: | [phone] | | | | | INJECTION, | [phone] | | | | | | 10 MG [id number] | | | | | | | - [place] | | | | | | | [...] + + | 09/03/ | Hospital | [facility] | Yancy Clifford MD | Malignant neoplasm | | 2019 | Encounter | HEMATOLOGY AND | [address] | of left ovary (HCC) | | | | ONCOLOGY INFUSIONS | [place], [place] | (Primary Dx); | | | | [address] | [address] | Ascites, malignant | | | | AVE [place], [place] | | | | | | [address] | Bhakti Godfrey RN | | | | | [phone] | | | +--------+ + + + [...] vein. It is given by a health healthcare technician in a h ospital or clinic setting. Talk to your timber framer helper regarding the use of this medicine in children. Special care may be needed. What side effects may I notice from receiving this medicine? Side effects that you should report to your doctor or health healthcare technician as soon as p ossible: allergic reactions [...] attention (report to your doctor or health healthcare technician if they continue or are bothersome): back pain changes in taste decreased appetite dry skin nausea tiredness What may interact with this medicine? Interactions are not expected. What if I miss a dose? It is important not to miss your dose. Call your doctor or health healthcare technician if you are unable to keep an [...] should talk to your doctor or health healthcare technician if you are concerned about your fertility. [...] with [facility] in [facility] 09/24/2019 1415 - Office Visit Extended appointment starts at 1430 with Yancy Clifford MD in [facility] HEMATOLOGY AND ONCOLOGY 09/24/2019 1500 - Onc Infusion with JAZZY CHAIR 15 in [facility] HEMATOLOGY AND ONCOLOGY INFUSIONS documented [...] [place] | | | | | | [address] | | | | | | | | +--------+ + + + + | 12/17/ | Office | Oncology | Yancy Clifford MD | | | 2019 | Visit | | [address] | | | | | | [place] | | | | | | [address] | | | | | | | | +--------+ + + + + | 12/17/ | Appointment | Infusion Therapy | Yancy Clifford MD | | | 2019 | | | [address] | | | | | | [place] | | | | | | [address] | | | | | | | | +--------+ + + + + | 01/07/ | Appointment | Infusion Therapy | Yancy Clifford MD | | | 2019 | | | [address] | | | | | | [place] | | | | | | [address] | | | | | | | | +--------+ + + + + | 01/07/ | Office | Oncology | Yancy Clifford MD | | | 2019 | Visit | | [address] | | | | | | [place] | | | | | | [address] | | | | | | | | +--------+ + + + + | 01/07/ | Appointment | Infusion Therapy | Yancy Clifford MD | | | 2019 | | | [address] | | | | | | [place] | | | | | | [address] | | | | | | | [...]
--- OUTSIDE RECORDS SUMMARY | ~2019-12-08 | XMS | Encounter Summary ---
Demographics + + + | Address | [address] [address] | | | [place] [address] | + + + | Home Phone [...] | | | | [place] [address] | | + + + + + | Emory Larios | ECON | Unknown | | + + + + + Care Team Providers + +------+ + | Care Shelter Advocate Name | Role | Phone | + [...] | | | (HCC) | AVE | [place] | | | | | Encounter | [place], | [address] | | | | | for | [place] [address] | Phone: | | | | | antineoplast | Phone: | [phone] | | | | | ic | [phone] | Fax: | | | | | chemotherapy | Fax: | [phone] | | | | | Peritoneal | [phone] | | | | | | | [...] + + | 08/13/ | Office | [facility] | Scott Boswell MD | Personal history of | | 2019 | Visit | PULMONOLOGY [address] | [address] | tobacco use, | | | | [address] | [place], [place] | presenting hazards | | | | [place], [place] | [address] | to health (Primary | | | | [address] | | Dx); Mild | | | | [phone] | | intermittent asthma, | | | [...] Boswell MD Pulmonary and Critical Care Medicine [facility] [address] [facility] , [place] [address] documented in this enco unter Plan of [...] [place] | | | | | | [address] | | | | | | | | +--------+ + + + + | 12/17/ | Office | Oncology | Yancy Clifford MD | | | 2019 | Visit | | [address] | | | | | | [place] | | | | | | [address] | | | | | | | | +--------+ + + + + | 12/17/ | Appointment | Infusion Therapy | Yancy Clifford MD | | | 2019 | | | [address] | | | | | | [place] | | | | | | [address] | | | | | | | | +--------+ + + + + | 01/07/ | Appointment | Infusion Therapy | Yancy Clifford MD | | | 2019 | | | [address] | | | | | | [place] | | | | | | [address] | | | | | | | | +--------+ + + + + | 01/07/ | Office | Oncology | Yancy Clifford MD | | | 2019 | Visit | | [address] | | | | | | [place] | | | | | | [address] | | | | | | | | +--------+ + + + + | 01/07/ | Appointment | Infusion Therapy | Yancy Clifford MD | | | 2019 | | | [address] | | | | | | [place] | | | | | | [address] | | | | | | | | +--------+ + + + + documented as of this encounter Visit Diagnoses + + | Diagnosis | + + | Personal history of tobacco use, presenting hazards to health - Primary | + + | Mild intermittent asthma, unspecified whether complicated | + + documented in this encounter"
--- OUTSIDE RECORDS SUMMARY | ~2019-12-08 | XMS | Encounter Summary ---
Demographics + + + | Address | [address] | | | [place] [address] | + + + | Home Phone [...] | | | | | [place] [address] | | + + + + + | Emory Larios | ECON | Unknown | | + + + + + Care Team Providers + +------+ + | Care Color Straining Bag Washer Name | Role | Phone | + +------+ + PCP | Unavailable | + +------+ + Encounter Details +--------+ + + + + | Date | Type | Department | Care Team | Description | +--------+ + + + + | 07/09/ | Abstract | [facility] | Patricia Sanchez, | | | 2018 | | HEMATOLOGY AND | [employer]er [employer] | | | | | ONCOLOGY [address] | | | | | | [address] | | | | | | [place] | | | | | | [address] | | | | | | [phone] | | | +--------+ + + + [...] 2019 | | | [address] | | | | | | [place] | | | | | | [address] | | | | | | | | +--------+ + + + + | 12/17/ | Office | Oncology | Yancy Clifford MD | | | 2019 | Visit | | [address] | | | | | | [place] | | | | | | [address] | | | | | | | | +--------+ + + + + | 12/17/ | Appointment | Infusion Therapy | Yancy Clifford MD | | | 2019 | | | [address] | | | | | | [place] | | | | | | [address] | | | | | | | | +--------+ + + + + | 01/07/ | Appointment | Infusion Therapy | Yancy Clifford MD | | | 2019 | | | [address] | | | | | | [place] | | | | | | [address] | | | | | | | | +--------+ + + + + | 01/07/ | Office | Oncology | Yancy Clifford MD | | | 2019 | Visit | | [address] | | | | | | [place] | | | | | | [address] | | | | | | | | +--------+ + + + + | 01/07/ | Appointment | Infusion Therapy | Yancy Clifford MD | | | 2019 | | | [address] | | | | | | [place] | | | | | | [address] | | | | | | | | +--------+ + + + + documented as of this encounter Visit Diagnoses Not on filedocumented in this encounter"
--- OUTSIDE RECORDS SUMMARY | ~2019-12-08 | XMS | Encounter Summary ---
Demographics + + + | Address | [address] | | | [place] [address] | + + + | Home Phone [...] | | | | [place] [address] | | + + + + + | Emory Larios | ECON | Unknown | | + + + + + Care Team Providers + +------+ + | Care Ball Warper Tender Name | Role | Phone | [...] | | | Ascites, | [place], | [place] [address] | | | | | malignant | [place] [address] | Phone: | | | | | Procedures | Phone: | [phone] | | | | | [place] | [phone] | Fax: | | | | | BEVACIZUMAB | Fax: | [phone] | | | | | INJECTION, | [phone] | | | | | | 10 MG [id number] | | | | | | | - [place] | | | | | | | [...] + + | 09/24/ | Hospital | [facility] | Yancy Clifford MD | Malignant neoplasm | | 2019 | Encounter | HEMATOLOGY AND | [address] | of left ovary (HCC) | | | | ONCOLOGY INFUSIONS | [place] | (Primary Dx); | | | | [address] | [address] | Ascites, malignant | | | | AVE [place], [place] | | | | | | [address] | | | | | | [phone] | | | +--------+ + + + [...] prevent mouth sores: Keep your mouth clean. [place] your teeth with a soft-bristle toothbrush after [...] baking soda to clean your mouth. M qe1vdccrykpsi salt [id number] of baking soda in 1 quart of [...] begins to ooze Burning when you urinate Lsydxpz873.4F (38C) tiffani pineda directed by your healthcare provider Date Last Reviewed: 04/01/201619998662-1518 [employer]. [address] [place] [address]. All righ ts reserved. This information is [...] for any concerns or questions. Discharged to [facility] with copy of labs and calendar for [...] [place] | | | | | | [address] | | | | | | | | +--------+ + + + + | 12/17/ | Office | Oncology | Yancy Clifford MD | | | 2019 | Visit | | [address] | | | | | | [place] | | | | | | [address] | | | | | | | | +--------+ + + + + | 12/17/ | Appointment | Infusion Therapy | Yancy Clifford MD | | | 2019 | | | [address] | | | | | | [place] | | | | | | [address] | | | | | | | [...] [place] | | | | | | [address] | | | | | | | | +--------+ + + + + | 01/07/ | Appointment | Infusion Therapy | Yancy Clifford MD | | | 2019 | | | [address] | | | | | | [place] | | | | | | [address] | | | | | | | [...]
--- OUTSIDE RECORDS SUMMARY | ~2019-12-08 | XMS | Encounter Summary ---
Demographics + + + | Address | [address] | | | [place] [address] | + + + | Home Phone | | + + + | Preferred Language | Unknown | + + + | Marital Status | | + + + | Church Affiliation | Unknown | + + + | Race | Unknown | + + + | Ethnic Group | Unknown | + + + Author + + + | Author | [facility] | | | and [place] | + + + | Organization | [facility] | | [...] | | | | [place] [address] | | + + + + + | Emory Larios | ECON | Unknown | | + + + + + Care Team Providers + +------+ + | Care Grey Iron Molder Name | Role | Phone | + +------+ + | Shannan Dneg | PCP | | + +------+ + Reason for Visit + + + | Reason | Comments | + + + | Follow-up | | + + + Encounter Details +--------+---------+ + + + | Date | Type | Department | Care Team | Description | +--------+---------+ + + + | 11/05/ | Office | [facility] | Yancy Clifford MD | Malignant neoplasm | | 2019 | Visit | HEMATOLOGY AND | [address] | of left ovary (HCC) | | | | ONCOLOGY [address] | [place] | (Primary Dx); | [address] | [address] | [address] | 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 07/2017 Surgery S/p debulking surgery. Final pathology [...] MDRD IDMS traceable equation. Testing performed at [facility];[address];[place] [address] WBC 11/05/2019 7.80 3.80 - 11.00 K/uL [...] - 0.10 K/uL Final Testing Performed at [facility], [address], [address], [place] [address] PRO/CREA RATIO,URINE 11/05/2019 0.561 Final Testing performed at [facility];[address];[place] [address] Color, UA 11/05/2019 YELLOW Final Clarity, UA 11/05/2019 CLEAR Final Specific [place], Urine 11/05/2019 1.025 1.002 - 1.030 Final [...] NEGATIVE NEG mg/dL Final Testing Performed at [facility], [address], [address], [place] [address] Creatinine, random urine 11/05/2019 157.0 mg/dL Final Comment: NO NORMAL RANGE ESTABLISHED Testing performed at [facility];[address] [place] [address];[place] [address] Protein, Urine 11/05/2019 88 mg/dL Final Comment: NO NORMAL RANGE ESTABLISHED Testing performed at [facility];[address] [place] [address];[place] [address] WBC UA 11/05/2019 1-5 0 - 5 /hpf Final RBC UA 11/05/2019 0-2 0 - 5 /hpf Final SQUAMOUS EPITHELIAL UA 11/05/2019 50-100 /lpf Final BACTERIA UA 11/05/2019 2+* NONE Final MUCUS UA 11/05/2019 2+ Final CASTS 11/05/2019 1-5 /lpf Final Comment: HYALINE 0-2 FINE GRANULAR Testing Performed at [facility], [address] [facility] [facility] [address], [place] [address] Orders Only on 11/05/2019 Component Date Value Ref Range Status CA125 11/05/2019 44.6* 0 - 35 U/mL Final Comment: THE SIEMENS (FORMERLY ROGER) ADVIA CENTAUR IMMUNOASSAY METHOD IS USED. RESULTS OBTAINED WITH DIFFERENT ASSAY METHODS OR KITS CANNOT BE USED INTERCHANGEABLY. Testing performed at [facility];[address] [place] [address];[place] [address] Results for ELSY BAXTER ( ) as [...] examining the patient, review of medical records, cancer genetic counselor ing, coordination of care, and CPOE. More than 50% of that time was spent in direct contact with the patient. documented [facility] Plan of Treatment +--------+ + + + + | Date | Type | Specialty | Care Team | Description | +--------+ + + + + | 12/17/ | Appointment | Infusion Therapy | Yancy Clifford MD | | | 2019 | | | [address] | | | | | | [place] | | | | | | [address] | | | | | | | | +--------+ + + + + | 12/17/ | Office | Oncology | Yancy Clifford MD | | | 2019 | Visit | | [address] | | | | | | [place] | | | | | | [address] | | | | | | | | +--------+ + + + + | 12/17/ | Appointment | Infusion Therapy | Yancy Clifford MD | | | 2019 | | | [address] | | | | | | [place] | | | | | | [address] | | | | | | | | +--------+ + + + + | 01/07/ | Appointment | Infusion Therapy | Yancy Clifford MD | | | 2019 | | | [address] | | | | | | [place] | | | | | | [address] | | | | | | | | +--------+ + + + + | 01/07/ | Office | Oncology | Yancy Clifford MD | | | 2019 | Visit | | [address] | | | | | | [place] | | | | | | [address] | | | | | | | | +--------+ + + + + | 01/07/ | Appointment | Infusion Therapy | Yancy Clifford MD | | | 2019 | | | [address] | | | | | | [place] | | | | | | [address] | | | | | | | [...]
--- OUTSIDE RECORDS SUMMARY | ~2019-12-08 | XMS | Encounter Summary ---
Demographics + + + | Address | [address] | | | [place] [address] | + + + | Home Phone [...] | | | | [place] [address] | | + + + + + | Emory Larios | ECON | Unknown | | + + + + + Care Team Providers + +------+ + | Care [employer] Name | Role | Phone | + +------+ + | Shannan Deng | PCP | | + +------+ + Encounter Details +--------+ + + + + | Date | Type | Department | Care Team | Description | +--------+ + + + + | 11/05/ | Orders Only | [facility] | Lona Gutier[place], | Malignant neoplasm | | 2019 | | [address] | [place] | of left ovary (HCC); | | | | [place] | | Peritoneal | | | | [address] | | carcinomatosis | | | | [phone] | | (HCC); Pleural | | | [...] [place] | | | | | | [address] | | | | | | | | +--------+ + + + + | 12/17/ | Office | Oncology | Yancy Clifford MD | | | 2019 | Visit | | [address] | | | | | | [place] | | | | | | [address] | | | | | | | | +--------+ + + + + | 12/17/ | Appointment | Infusion Therapy | Yancy Clifford MD | | | 2019 | | | [address] | | | | | | [place] | | | | | | [address] | | | | | | | | +--------+ + + + + | 01/07/ | Appointment | Infusion Therapy | Yancy Clifford MD | | | 2019 | | | [address] | | | | | | [place] | | | | | | [address] | | | | | | | | +--------+ + + + + | 01/07/ | Office | Oncology | Yancy Clifford MD | | | 2019 | Visit | | [address] | | | | | | [place] | | | | | | [address] | | | | | | | | +--------+ + + + + | 01/07/ | Appointment | Infusion Therapy | Yancy Clifford MD | | | 2020 | | | [address] | | | | | | [place] | | | | | | [address] | | | | | | | [...] in this encounter Results CA 125, Quant (11/05/2019 1:17 PM PST) + + + + + + | Component | Value | Ref Range | Performed | Pathologist | | | | | At | Signature | + + + + + + | CA125 | 44.6 (H)Comment: THE | 0 - 35 U/mL | REFERENCE | | | | SIEMENS (FORMERLY ROGER) [...] at | | | | | | TC;[address] [facility] | | | | | | [facility];[place] [address] | | | | | | | | | | + + + + + + + + | Specimen | + + | Blood | + + + + + + + | Performing | Address | City/State/Zipcode | Phone Number | | Organization | | | | + + + + + | REFERENCE LAB | [address] [facility] | [place] [address] | [phone] | | [facility] | Blvd[address] | | | | LABORATORY | | | | + + + + + | REFERENCE LAB | [address] [facility] | [place] [address] | | | [facility] | Blvd[address] | [...] immunotherapy | + + documented in this encounter"
--- OUTSIDE RECORDS SUMMARY | ~2019-12-08 | XMS | Encounter Summary ---
Demographics + + + | Address | [address] | | | [place] [address] | + + + | Home Phone [...] | | | | [place] [address] | | + + + + + | Emory Larios | ECON | Unknown | | + + + + + Care Team Providers + +------+ + | Care Gin Feeder Name | Role | Phone | + +------+ + | Shannan Deng | PCP | | + +------+ + Encounter Details +--------+ + + + + | Date | Type | Department | Care Team | Description | +--------+ + + + + | 10/15/ | Hospital | [facility] | Yancy Clfiford MD | 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) | | | | SERVICES [address] | [place] | (Primary Dx); | | | | [address] [place] | [id number] | Peritoneal | | | | [address] [place], [place] | | carcinomatosis | | | | [address] | Dick Coreas RN | (HCC); Pleural | | | | [phone] | | effusion, malignant; | | | [...] pt left accessed for tx. Sent to [facility] for peripheral draw 19 9:06 AM [...] [place] | | | | | | [address] | | | | | | | | +--------+ + + + + | 12/17/ | Office | Oncology | Yancy Clifford MD | | | 2019 | Visit | | [address] | | | | | | [place] | | | | | | [address] | | | | | | | | +--------+ + + + + | 12/17/ | Appointment | Infusion Therapy | Yancy Clifford MD | | | 2019 | | | [address] | | | | | | [place] | | | | | | [address] | | | | | | | | +--------+ + + + + | 01/07/ | Appointment | Infusion Therapy | Yancy Clifford MD | | | 2019 | | | [address] | | | | | | [place] | | | | | | [address] | | | | | | | | +--------+ + + + + | 01/07/ | Office | Oncology | Yancy Clifford MD | | | 2019 | Visit | | [address] | | | | | | [place] | | | | | | [address] | | | | | | | | +--------+ + + + + | 01/07/ | Appointment | Infusion Therapy | Yancy Clifford MD | | | 2019 | | | [address] | | | | | | [place] | | | | | | [address] | | | | | | | [...] | | | Line Care, Starting Teresa 10/15/19 | | AM PST | | | | | at 0904 | | | | | | + +-------+ +--------+---+---+ +---+---+ | | | +---+---+ documented in this encounter"
--- OUTSIDE RECORDS SUMMARY | ~2019-12-08 | XMS | Encounter Summary ---
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 07/2017 Surgery S/p debulking surgery. Final pathology [...] - 0.10 K/uL Final Testing Performed at [facility], [address], [address], [place] [address] Na 09/24/2019 136 135 - 145 mmol/L Final Testing performed at [facility];[address];[place] [address] K 09/24/2019 4.1 3.5 - 4.9 mmol/L Final Testing performed at [facility];[address] [facility];[place] [address] Cl 09/24/2019 104 99 - 109 mmol/L Final Testing performed at [facility];[address] [address] [facility];[place] [address] CO2 09/24/2019 26 23 - 32 mmol/L Final Testing Performed at [facility], [address], [address], [place] [address] Anion Gap 09/24/2019 10 5 - 20 mmol/L Final Testing performed at [facility];[address];[place] [address] Glucose 09/24/2019 182* 65 - 99 mg/dL [...] [facility], [address], [address], [place] [address] Imaging: Assessment: ECO 59 yo lady with [...] examining the patient, review of medical records, sexual abuse counsellor ing, coordination of care, and CPOE. [...] | | | 2019 | | | [address] | | | | | | [place] | | | | | | [address] | | | | | | | | +--------+ + + + + | 12/17/ | Office | Oncology | Yancy Clifford MD | | | 2019 | Visit | | [address] | | | | | | [place] | | | | | | [address] | | | | | | | | +--------+ + + + + | 12/17/ | Appointment | Infusion Therapy | Yancy Clifford MD | | | 2019 | | | [address] | | | | | | [place] | | | | | | [address] | | | | | | | | +--------+ + + + + | 01/07/ | Appointment | Infusion Therapy | Yancy Clifford MD | | | 2019 | | | [address] | | | | | | [place] | | | | | | [address] | | | | | | | | +--------+ + + + + | 01/07/ | Office | Oncology | Yancy Clifford MD | | | 2019 | Visit | | [address] | | | | | | [place] | | | | | | [address] | | | | | | | | +--------+ + + + + | 01/07/ | Appointment | Infusion Therapy | Yancy Clifford MD | | | 2020 | | | [address] | | | | | | [place] | | | | | | [address] | | | | | | | [...] | | | | | TCL;[address] [facility] | | | | | | [facility];[place] [address] | | | | | | | | | | + + + + + + + + | Specimen | + + | Blood | + + + + + + + | Performing | Address | City/State/Zipcode | Phone Number | | Organization | | | | + + + + + | REFERENCE LAB | [address] [place] [address] | [place] [address] | [phone] | | [facility] | Blvd. | | | | LABORATORY | | | | + + + + + | REFERENCE LAB | [address] [facility] | [place] [address] | | | [facility] | Blvd. | [...] | | | | | TCL;[address] | | | | | | [address] [address] | | | | | | | | | | + + + + + + + + | Specimen | + + | Blood | + + + + + + + | Performing | Address | City/State/Zipcode | Phone Number | | Organization | | | | + + + + + | REFERENCE LAB | [address] [place] [address] | [place] [address] | [phone] | | [facility] | Blvd. | | | | LABORATORY | | | | + + + + + | REFERENCE LAB | [address] [place] [address] | [place] [address] | | | [facility] | Blvd. | [...] | | [facility] | | | | [place] | | LABORATORY | | | | Blvd;[place] [address] | | | | | | | | | | + + + + + + + + | Specimen | + + | | + + + + + + + | Performing | Address | City/State/Zipcode | Phone Number | | Organization | | | | + + + + + | REFERENCE LAB | [address] [place] [address] | [place] [address] | [phone] | | [facility] | Blvd. | | | | LABORATORY | | | | + + + + + | REFERENCE LAB | [address] [place] [address] | [place] [address] | | | [facility] | Blvd. | [...] | | [facility] | | | | [facility] | | LABORATORY | | | | Blvd;[place] [address] | | | | | | | | | | + + + + + + + + | Specimen | + + | | + + + + + + + | Performing | Address | City/State/Zipcode | Phone Number | | Organization | | | | + + + + + | REFERENCE LAB | [address] [place] [address] | [place] [address] | [phone] | | [facility] | Blvd. | | | | LABORATORY | | | | + + + + + | REFERENCE LAB | [address] [place] [address] | [place] [address] | | | [facility] | Blvd. | [...] | | LABORATORY | | | | Blvd;[place] [address] | | | | | | | | | | + + + + + + + + | Specimen | + + | | + + + + + + + | Performing | Address | City/State/Zipcode | Phone Number | | Organization | | | | + + + + + | REFERENCE LAB | [address] [facility] | [place] [address] | [phone] | | [facility] | Blvd. | | | | LABORATORY | | | | + + + + + | REFERENCE LAB | [address] | [place] [address] | | | [facility] | Blvd. | [...] - 1.030 | REFERENCE | | | [place], | | | LAB | | | [...] + + + | REFERENCE LAB | [address] [place] [address] | [place] [address] | [phone] | | [facility] | Blvd. | | | | LABORATORY | | | | + + + + + | REFERENCE LAB | [address] [place] [address] | [place] [address] | | | [facility] | Blvd. | [...] [facility] | | | | Blvd;[place] [address] | | LABORATORY | | + + + + + + + + | Specimen | + + | | + + + + + + + | Performing | Address | City/State/Zipcode | Phone Number | | Organization | | | | + + + + + | REFERENCE LAB | [address] [facility] | [place] [address] | [phone] | | [facility] | Blvd. | | | | LABORATORY | | | | + + + + + | REFERENCE LAB | [address] | [place] [address] | | | [facility] | Blvd. | [...]
--- OUTSIDE RECORDS SUMMARY | ~2019-12-08 | XMS | Encounter Summary ---
Demographics + + + | Address | [address] | | | [place] [address] | + + + | Home Phone | | + + + | Preferred Language | Unknown | + + + | Marital Status | | + + + | Pentecostal Affiliation | Unknown | + + + | Race | Unknown | + + + | Ethnic Group | Unknown | + + + Author + + + | Author | [facility] | | | and [place] | + + + | Organization | [facility] | | | [...] | | | | [place] [address] | | + + + + + | Emory Larios | ECON | Unknown | | + + + + + Care Team Providers + +------+ + | Care Director Of Pulmonary Unit Name | Role | Phone | + +------+ + | Shannan Deng | PCP | | + +------+ + Encounter Details +--------+ + + + + | Date | Type | Department | Care Team | Description | +--------+ + + + + | 10/15/ | Orders Only | [facility] | [place] | Malignant neoplasm | | 2019 | | [address] | M, Program Manager | of left ovary (HCC); | | | | [place] | | 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 | | | | [phone] | | (HCC); Pleural | | | [...] | | 2019 | | | [address] | | | | | | [place] | | | | | | [address] | | | | | | | | +--------+ + + + + | 12/17/ | Office | Oncology | Yancy Clifford MD | | | 2019 | Visit | | [address] | | | | | | [place] | | | | | | [address] | | | | | | | | +--------+ + + + + | 12/17/ | Appointment | Infusion Therapy | Yancy Clifford MD | | | 2019 | | | [address] | | | | | | [place] | | | | | | [address] | | | | | | | | +--------+ + + + + | 01/07/ | Appointment | Infusion Therapy | Yancy Clifford MD | | | 2019 | | | [address] | | | | | | [place] | | | | | | [address] | | | | | | | | +--------+ + + + + | 01/07/ | Office | Oncology | Yancy Clifford MD | | | 2019 | Visit | | [address] | | | | | | [place] | | | | | | [address] | | | | | | | | +--------+ + + + + | 01/07/ | Appointment | Infusion Therapy | Yancy Clifford MD | | | 2020 | | | [address] | | | | | | [place] | | | | | | [address] | | | | | | | [...] in this encounter Results Urinalysis, Microscopic Only (11/27/2019 9:39 AM PST) + + + [...] [place] | | | | | | [address] | | | | + + + + + + + + | Specimen | + + | | + + + + + + + | Performing | Address | City/State/Zipcode | Phone Number | | Organization | | | | + + + + + | REFERENCE LAB | [address] | [place] [address] | [phone] | | [facility] | Blvd. | | | | LABORATORY | | | | + + + + + | REFERENCE LAB | [address] [facility] | [place] [address] | | | [facility] | Blvd. | | | | LABORATORY | | | | + + + + + Protein, Urine, Random (11/27/2019 9:39 AM PST) + + + + + + | Component | Value | Ref Range | Performed | Pathologist | | | | | At | Signature | + + + + + + | Protein, | 110Comment: NO NORMAL | mg/dL | REFERENCE | | | Urine | RANGE ESTABLISHEDTesting | | LAB | | | | performed at [facility];[address] | | [facility] | | | | [facility] | | LABORATORY | | | | Blvd;[place] [address] | | | | | | | | | | + + + + + + + + | Specimen | + + | | + + + + + + + | Performing | Address | City/State/Zipcode | Phone Number | | Organization | | | | + + + + + | REFERENCE LAB | [address] [place] [address] | [place] [address] | [phone] | | [facility] | Blvd. | | | | LABORATORY | | | | + + + + + | REFERENCE LAB | [address] [place] [address] | [place] [address] | | | [facility] | Blvd. | | | | LABORATORY | | | | + + + + + Creatinine, Urine, Random (11/27/2019 9:39 AM PST) + + + + + + | Component | Value | Ref Range | Performed | Pathologist | | | | | At | Signature | + + + + + + | Creatinine, | 263.0Comment: NO NORMAL | mg/dL | REFERENCE | | | random | RANGE ESTABLISHEDTesting | | LAB | | | urine | performed at [facility];[address] | | [facility] | | | | [facility] | | LABORATORY | | | | Blvd;[place] [address] | | | | | | | | | | + + + + + + + + | Specimen | + + | | + + + + + + + | Performing | Address | City/State/Zipcode | Phone Number | | Organization | | | | + + + + + | REFERENCE LAB | [address] [place] [address] | [place] [address] | [phone] | | [facility] | Blvd. | | | | LABORATORY | | | | + + + + + | REFERENCE LAB | [address] [place] [address] | [place] [address] | | | [facility] | Blvd. | | | | LABORATORY | | | | + + + + + Urinalysis with Microscopic if Indicated (11/27/2019 9:39 AM PST) + + + [...] - 1.030 | REFERENCE | | | [place], | | | LAB | | | [...] REFERENCE | | | | Performed at [facility], [address] | | LAB | | | | [address] | | [facility] | | | | [address] | | LABORATORY | | | | [address] | | | | + + + + + + + + | Specimen | + + | | + + + + + + + | Performing | Address | City/State/Zipcode | Phone Number | | Organization | | | | + + + + + | REFERENCE LAB | [address] [place] [address] | [place] [address] | [phone] | | [facility] | Blvd. | | | | LABORATORY | | | | + + + + + | REFERENCE LAB | [address] [place] [address] | [place] [address] | | | [facility] | Blvd. | | | | LABORATORY | | | | + + + + + Protein/Creatinine Ratio, Urine (11/27/2019 9:39 AM PST) + + + + + + | Component | Value | Ref Range | Performed | Pathologist | | | | | At | Signature | + + + + + + | PRO/CREA | 0.418Comment: Testing | | REFERENCE | | | RATIO,URINE | performed at [facility];[address] | | LAB | | | | [place] | | [facility] | | | | Blvd;[place] [address] | | LABORATORY | | + + + + + + + + | Specimen | + + | Urine | + + + + + + + | Performing | Address | City/State/Zipcode | Phone Number | | Organization | | | | + + + + + | REFERENCE LAB | [address] [place] [address] | [place] [address] | [phone] | | [facility] | Blvd. | | | | LABORATORY | | | | + + + + + | REFERENCE LAB | [address] [place] [address] | [place] [address] | | | [facility] | Blvd. | | | | LABORATORY | | | | + + + + + Urinalysis, Microscopic Only (10/15/2019 8:55 AM PST) + + + [...] + + + | MUCUS UA | 1+ | | REFERENCE | | | | | | LAB | | | | | | [facility] | | | | | | LABORATORY | | + + + + + + | CASTS | 0-2Comment: COARSE | /lpf | REFERENCE | | | | GRANULARTesting | | LAB | | | | Performed at [facility], [address] | | [facility] | | | | [address] | | LABORATORY | | | | [address], [place] | | | | | | [address] | | | | + + + + + + + + | Specimen | + + | | + + + + + + + | Performing | Address | City/State/Zipcode | Phone Number | | Organization | | | | + + + + + | REFERENCE LAB | [address] [facility] | [place] [address] | [phone] | | [facility] | Blvd. | | | | LABORATORY | | | | + + + + + | REFERENCE LAB | [address] [facility] | [place] [address] | | | [facility] | Blvd. | | | | LABORATORY | | | | + + + + + Protein, Urine, Random (10/15/2019 8:55 AM PST) + + + + + + | Component | Value | Ref Range | Performed | Pathologist | | | | | At | Signature | + + + + + + | Protein, | 61Comment: NO NORMAL | mg/dL | REFERENCE | | | Urine | RANGE ESTABLISHEDTesting | | LAB | | | | performed at [facility];[address] | | [facility] | | | | [facility] | | LABORATORY | | | | Blvd;[place] [address] | | | | | | | | | | + + + + + + + + | Specimen | + + | | + + + + + + + | Performing | Address | City/State/Zipcode | Phone Number | | Organization | | | | + + + + + | REFERENCE LAB | [address] [facility] | [place] [address] | [phone] | | [facility] | Blvd. | | | | LABORATORY | | | | + + + + + | REFERENCE LAB | [address] [facility] | [place] [address] | | | [facility] | Blvd. | | | | LABORATORY | | | | + + + + + Creatinine, Urine, Random (10/15/2019 8:55 AM PST) + + + + + + | Component | Value | Ref Range | Performed | Pathologist | | | | | At | Signature | + + + + + + | Creatinine, | 120.0Comment: NO NORMAL | mg/dL | REFERENCE | | | random | RANGE ESTABLISHEDTesting | | LAB | | | urine | performed at [facility];[address] | | [facility] | | | | [place] | | LABORATORY | | | | Blvd;[place] [address] | | | | | | | | | | + + + + + + + + | Specimen | + + | | + + + + + + + | Performing | Address | City/State/Zipcode | Phone Number | | Organization | | | | + + + + + | REFERENCE LAB | [address] [facility] | [place] [address] | [phone] | | [facility] | Blvd. | | | | LABORATORY | | | | + + + + + | REFERENCE LAB | [address] [facility] | [place] [address] | | | [facility] | Blvd. | | | | LABORATORY | | | | + + + + + Protein/Creatinine Ratio, Urine (10/15/2019 8:55 AM PST) + + + + + + | Component | Value | Ref Range | Performed | Pathologist | | | | | At | Signature | + + + + + + | PRO/CREA | 0.508Comment: Testing | | REFERENCE | | | RATIO,URINE | performed at [facility];[address] | | LAB | | | | [place] | | [facility] | | | | Blvd;[place] [address] | | LABORATORY | | + + + + + + + + | Specimen | + + | | + + + + + + + | Performing | Address | City/State/Zipcode | Phone Number | | Organization | | | | + + + + + | REFERENCE LAB | [address] [place] [address] | [place] [address] | [phone] | | [facility] | Blvd. | | | | LABORATORY | | | | + + + + + | REFERENCE LAB | [address] [place] [address] | [place] [address] | | | [facility] | Blvd. | [...] | [facility] | | | | [address], [place], [place] | | LABORATORY | | | | [address] | | | | + + + + + + + + | Specimen | + + | Blood | + + + + + + + | Performing | Address | City/State/Zipcode | Phone Number | | Organization | | | | + + + + + | REFERENCE LAB | [address] [place] [address] | [place] [address] | [phone] | | [facility] | Blvd. | | | | LABORATORY | | | | + + + + + | REFERENCE LAB | [address] [place] [address] | [place] [address] | | | [facility] | Blvd. | [...] [facility] | | | | Blvd;[place] [address] | | LABORATORY | | + + + + + + | K | 4.3Comment: Testing | 3.5 - 4.9 | REFERENCE | | | | performed at [facility];[address] | mmol/L | LAB | | | | [place] | | [facility] | | | | Blvd;[place] [address] | | LABORATORY | | + + + + + + | Cl | 105Comment: Testing | 99 - 109 mmol/L | REFERENCE | | | | performed at [facility];[address] | | LAB | | | | [place] | | [facility] | | | | Blvd;[place] [address] | | LABORATORY | | + + + + + + | CO2 | 26Comment: Testing | 23 - 32 mmol/L | REFERENCE | | | | Performed at [facility], [address] | | LAB | | | | [address] | | [facility] | | | | [address], [place] | | LABORATORY | | | | [address] | | | | + + + + + + | Anion Gap | 11Comment: Testing | 5 - 20 mmol/L | REFERENCE | | | | performed at [facility];[address] | | LAB | | | | [place] | | [facility] | | | | Blvd;[place] [address] | | LABORATORY | | + + [...] | | | | | | [address], [place] | | | | | | [address] | | | | + + + + + + + + | Specimen | + + | Blood | + + + + + + + | Performing | Address | City/State/Zipcode | Phone Number | | Organization | | | | + + + + + | REFERENCE LAB | [address] [place] [address] | [place] [address] | [phone] | | [facility] | Blvd. | | | | LABORATORY | | | | + + + + + | REFERENCE LAB | [address] [place] [address] | [place] [address] | | | [facility] | Blvd. | [...] - 1.030 | REFERENCE | | | [place], | | | LAB | | | [...] | | LABORATORY | | | | [address] | | | | + + + + + + + + | Specimen | + + | Urine | + + + + + + + | Performing | Address | City/State/Zipcode | Phone Number | | Organization | | | | + + + + + | REFERENCE LAB | [address] [facility] | [place] [address] | [phone] | | [facility] | Blvd. | | | | LABORATORY | | | | + + + + + | REFERENCE LAB | [address] [facility] [facility] | [place] [address] | | | [facility] | Blvd. | [...] | | | | | | [facility];[address] [facility] | | | | | | Blvd;[place] [address] | | | | | | | | | | + + + + + + + + | Specimen | + + | Blood | + + + + + + + | Performing | Address | City/State/Zipcode | Phone Number | | Organization | | | | + + + + + | REFERENCE LAB | [address] [place] [address] | [place] [address] | [phone] | | [facility] | Blvd. | | | | LABORATORY | | | | + + + + + | REFERENCE LAB | [address] [place] [address] | [place] [address] | | | [facility] | Blvd. | [...]
--- OUTSIDE RECORDS SUMMARY | ~2019-12-08 | XMS | Clinical Summary ---
Demographics + + + | Address | [address] | | | [place] [address] | + + + | Home Phone [...] | | | | [place] [address] | | + + + + + | Emory Larios | ECON | Unknown | | + + + + + Care Team Providers + +------+ + | Care Ict Trainer Name | Role | Phone | + [...] neoplasm | | 2019 | | | Mechanical Tech | of left ovary (HCC); | | [...] | | 2018 | | | M, Mechanical Tech | of left ovary (HCC); | | [...] [place] | | | | | | [address] | | | | | | | | +--------+ + + + + | 12/17/ | Office | Oncology | Yancy Clifford MD | | | 2019 | Visit | | [address] | | | | | | [place] | | | | | | [address] | | | | | | | | +--------+ + + + + | 12/17/ | Appointment | Infusion Therapy | Yancy Clifford MD | | | 2019 | | | [address] | | | | | | [place] | | | | | | [address] | | | | | | | | +--------+ + + + + | 01/07/ | Appointment | Infusion Therapy | Yancy Clifford MD | | | 2019 | | | [address] | | | | | | [place] | | | | | | [address] | | | | | | | | +--------+ + + + + | 01/07/ | Office | Oncology | Yancy Clifford MD | | | 2019 | Visit | | [address] | | | | | | [place] | | | | | | [address] | | | | | | | | +--------+ + + + + | 01/07/ | Appointment | Infusion Therapy | Yancy Clifford MD | | | 2019 | | | [address] | | | | | | [place] | | | | | | [address] | | | | | | | [...] - 1.030 | REFERENCE | | | [place], | | | LAB | | | [...] REFERENCE | | | | Performed at [facility], [address] | | LAB | | | | [address] | | [facility] | | | | [address] | | LABORATORY | | | | [address] | | | | + + + + + + + + | Specimen | + + | | + + + + + + + | Performing | Address | City/State/Zipcode | Phone Number | | Organization | | | | + + + + + | REFERENCE LAB | [address] [place] [address] | [place] [address] | [phone] | | [facility] | Blvd. | | | | LABORATORY | | | | + + + + + | REFERENCE LAB | [address] [place] [address] | [place] [address] | | | [facility] | Blvd. | [...] [place] | | | | | | [address] | | | | + + + + + + + + | Specimen | + + | | + + + + + + + | Performing | Address | City/State/Zipcode | Phone Number | | Organization | | | | + + + + + | REFERENCE LAB | [address] [place], [place] [address] | [place] [address] | [phone] | | [facility] | Blvd. | | | | LABORATORY | | | | + + + + + | REFERENCE LAB | [address] [place], [place] [address] | [place] [address] | | | [facility] | Blvd. | [...] | | | RATIO,URINE | performed at [facility];[address] | | LAB | | | | [facility] | | [facility] | | | | Blvd;[place] [address] | | LABORATORY | | + + + + + + + + | Specimen | + + | Urine | + + + + + + + | Performing | Address | City/State/Zipcode | Phone Number | | Organization | | | | + + + + + | REFERENCE LAB | [address] [place] [address] | [place] [address] | [phone] | | [facility] | Blvd. | | | | LABORATORY | | | | + + + + + | REFERENCE LAB | [address] [place] [address] | [place] [address] | | | [facility] | Blvd. | [...] LAB | | | | performed at [facility];[address] | | [facility] | | | | [facility] | | LABORATORY | | | | Blvd;[place] [address] | | | | | | | | | | + + + + + + + + | Specimen | + + | | + + + + + + + | Performing | Address | City/State/Zipcode | Phone Number | | Organization | | | | + + + + + | REFERENCE LAB | [address] [place] [address] | [place] [address] | [phone] | | [facility] | Blvd. | | | | LABORATORY | | | | + + + + + | REFERENCE LAB | [address] [place] [address] | [place] [address] | | | [facility] | Blvd. | | | | LABORATORY | | | | + + + + + Creatinine, Urine, Random (11/27/2019 9:39 AM [facility])Only the most recent of 4 results within [...] | | | urine | performed at [facility];[address] | | [facility] | | | | [facility] | | LABORATORY | | | | Blvd;[place] [address] | | | | | | | | | | + + + + + + + + | Specimen | + + | | + + + + + + + | Performing | Address | City/State/Zipcode | Phone Number | | Organization | | | | + + + + + | REFERENCE LAB | [address] [facility] | [place] [address] | [phone] | | [facility] | Blvd. | | | | LABORATORY | | | | + + + + + | REFERENCE LAB | [address] | [place] [address] | | | [facility] | Blvd. | [...] | | | Estimate | Performed at [facility], [address] | | LAB | | | | [address] | | [facility] | | | | [address], [place] | | LABORATORY | | | | [address] | | | | + + + + + + + + | Specimen | + + | Blood | + + + + + + + | Performing | Address | City/State/Zipcode | Phone Number | | Organization | | | | + + + + + | REFERENCE LAB | [address] [place] [address] | [place] [address] | [phone] | | [facility] | Blvd. | | | | LABORATORY | | | | + + + + + | REFERENCE LAB | [address] [place] [address] | [place] [address] | | | [facility] | Blvd. | [...] [facility] | | | | Blvd;[place] [address] | | LABORATORY | | + + + + + + | K | 4.3Comment: Testing | 3.5 - 4.9 | REFERENCE | | | | performed at [facility];[address] | mmol/L | LAB | | | | [place] | | [facility] | | | | Blvd;[place] [address] | | LABORATORY | | + + + + + + | Cl | 106Comment: Testing | 99 - 109 mmol/L | REFERENCE | | | | performed at [facility];[address] | | LAB | | | | [place] | | [facility] | | | | Blvd;[place] [address] | | LABORATORY | | + + + + + + | CO2 | 27Comment: Testing | 23 - 32 mmol/L | REFERENCE | | | | Performed at [facility], [address] | | LAB | | | | [address] | | [facility] | | | | [address], [place] | | LABORATORY | | | | [address] | | | | + + + + + + | Anion Gap | 9Comment: Testing | 5 - 20 mmol/L | REFERENCE | | | | performed at [facility];[address] | | LAB | | | | [place] | | [facility] | | | | Blvd;[place] [address] | | LABORATORY | | + + [...] | | | | | [address], [place] | | | | | | [address] | | | | + + + + + + + + | Specimen | + + | Blood | + + + + + + + | Performing | Address | City/State/Zipcode | Phone Number | | Organization | | | | + + + + + | REFERENCE LAB | [address] [place] [address] | [place] [address] | [phone] | | [facility] | Blvd. | | | | LABORATORY | | | | + + + + + | REFERENCE LAB | [address] [place] [address] | [place] [address] | | | [facility] | Blvd. | [...] REFERENCE | | | | [employer] [employer] | | LAB | | | | [employer] | | [facility] | | | | [...] | | | | | [facility];[address] | | | | | | Bl;[place] [address] | | | | | | | | | | + + + + + + + + | Specimen | + + | Blood | + + + + + + + | Performing | Address | City/State/Zipcode | Phone Number | | Organization | | | | + + + + + | REFERENCE LAB | [address] [place] [address] | [place] [address] | [phone] | | [facility] | Blvd. | | | | LABORATORY | | | | + + + + + | REFERENCE LAB | [address] [place] [address] | [place] [address] | | | [facility] | Blvd. | | | [...] | | | | | Signed by: Catracoh Chinchilla Scott | | Sign Date/Time: 10/16/2019 [...] +--------+ +---------+--------+ | MEDICARE | MEDICA | [id number] | 05/02/20 | [phone] | | Medica | | | RE | | 17-Pre | 5 | | re | | | PART A | | sent | | | | | | AND B | | | | | | + +--------+ +--------+ +---------+--------+ | COORDINATED CARE | COORDI | [id number] | 04/01/20 | | | Medica | [...] +---------+--------+ | MEDICAID [place] | MEDICA | [id number] | 07/04/20 | [phone] | | Medica [...] Person | Self | [birth year] | [address] | | | al/Fam | | 1959 | | [place], | | | ever | | | 5 (Home) | [place] [address] | + +--------+ +--------+ + + | Ramila Lopez | Person | Self | [birth year] | | [address] | | | al/Fam | | 1959 | [id number] | [place] [address] [place], | | | ever | | | 6 (Home) | [place] [address] | + +--------+ +--------+ + + Advance Directives + + + + + | Type | Date Recorded | Patient | Explanation | | | | Cold Reduction Roller | | + + + + + | Power of | | | | | Nicker And Breaker | | | | + + + + + | Advance | | | | | Directive | | | | + + + + +
--- OUTSIDE RECORDS SUMMARY | ~2019-12-08 | XMS | Encounter Summary ---
Demographics + + + | Address | [address] | | | [place] [address] | + + + | Home Phone [...] | | | | [place] [address] | | + + + + + | Emory Larios | ECON | Unknown | | + + + + + Care Team Providers + +------+ + | Care Cook Chef Name | Role | Phone | + +------+ + | Shannan Deng | PCP | | + +------+ + Encounter Details +--------+ + + + + | Date | Type | Department | Care Team | Description | +--------+ + + + + | 07/17/ | Orders Only | [facility] | Scott Boswell MD | Moderate persistent | | 2019 | | PULMONOLOGY [address] | [address] | asthma, | | | | [address] | [place], [place] | uncomplicated; | | | | [place], [place] | [address] | Malignant neoplasm | | | | [address] | | of left ovary (HCC) | | | | [phone] | | | +--------+ + + + [...] [place] | | | | | | [address] | | | | | | | | +--------+ + + + + | 12/17/ | Office | Oncology | Yancy Clifford MD | | | 2019 | Visit | | [address] | | | | | | [place] | | | | | | [address] | | | | | | | | +--------+ + + + + | 12/17/ | Appointment | Infusion Therapy | Yancy Clifford MD | | | 2019 | | | [address] | | | | | | [place] | | | | | | [address] | | | | | | | | +--------+ + + + + | 01/07/ | Appointment | Infusion Therapy | Yancy Clifford MD | | | 2019 | | | [address] | | | | | | [place] | | | | | | [address] | | | | | | | | +--------+ + + + + | 01/07/ | Office | Oncology | Yancy Clifford MD | | | 2019 | Visit | | [address] | | | | | | [place] | | | | | | [address] | | | | | | | | +--------+ + + + + | 01/07/ | Appointment | Infusion Therapy | Yancy Clifford MD | | | 2020 | | | [address] | | | | | | [place] | | | | | | [address] | | | | | | | | +--------+ + + + + + +------+--------+ + + | Name | Type | Priori | Associated Diagnoses | Order Schedule | | | | ty | | | + +------+--------+ + + | Eosinophil count | Lab | Routin | Moderate | Expected: | | | | e | persistent asthma, | 06/15/2019, Expires: | | | | | uncomplicated | 06/15/2020 | + +------+--------+ + + | Allergen Panel, | Lab | Routin | Moderate | Expected: | | Spring Iatan | | e | persistent asthma, | 06/15/2019, Expires: | | | | | uncomplicated | 06/15/2020 | + +------+--------+ + + documented as of this encounter Visit Diagnoses + + | Diagnosis | + + | Moderate persistent asthma, uncomplicated Unspecified asthma | + + | Malignant neoplasm of left ovary (HCC) Malignant neoplasm of ovary | + + documented in this encounter"
--- OUTSIDE RECORDS SUMMARY | ~2019-12-08 | XMS | Encounter Summary ---
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); | | | | ONCOLOGY [address] | | Ascites, malignant | | | | [address] | | | | | | [place] | | | | | | [address] | | | | | | [phone] | | | +--------+ + + + [...] [place] | | | | | | [address] | | | | | | | | +--------+ + + + + | 12/17/ | Office | Oncology | Yancy Clifford MD | | | 2019 | Visit | | [address] | | | | | | [place] | | | | | | [address] | | | | | | | | +--------+ + + + + | 12/17/ | Appointment | Infusion Therapy | Yancy Clifford MD | | | 2019 | | | [address] | | | | | | [place] | | | | | | [address] | | | | | | | | +--------+ + + + + | 01/07/ | Appointment | Infusion Therapy | Yancy Clifford MD | | | 2019 | | | [address] | | | | | | [place] | | | | | | [address] | | | | | | | | +--------+ + + + + | 01/07/ | Office | Oncology | Yancy Clifford MD | | | 2019 | Visit | | [address] | | | | | | [place] | | | | | | [address] | | | | | | | | +--------+ + + + + | 01/07/ | Appointment | Infusion Therapy | Yancy Clifford MD | | | 2019 | | | [address] | | | | | | [place] | | | | | | [address] | | | | | | | | +--------+ + + + + documented as of this encounter Visit Diagnoses + + | Diagnosis | + + | Malignant neoplasm of left ovary (HCC) Malignant neoplasm of ovary | + + | Ascites, malignant Malignant ascites | + + documented in this encounter
--- OUTSIDE RECORDS SUMMARY | ~2019-12-08 | XMS | Encounter Summary ---
Demographics + + + | Address | [address] | | | [place] [address] | + + + | Home Phone [...] | | | | | [place] [address] | | + + + + + | Emory Larios | ECON | Unknown | | + + + + + Care Team Providers + +------+ + | Care Tool Supervisor Name | Role | Phone | + +------+ + PCP | Unavailable | + +------+ + Encounter Details +--------+ + + + + | Date | Type | Department | Care Team | Description | +--------+ + + + + | 06/11/ | Orders Only | [facility] | Yancy Clifford MD | | | 2019 | | [address] [facility] | [address] | | | | | [place] | [place] | | | | | [address] | [address] | | | | | [phone] | | | +--------+ + + + [...] [place] | | | | | | [address] | | | | | | | | +--------+ + + + + | 12/17/ | Office | Oncology | Yancy Clifford MD | | | 2019 | Visit | | [address] | | | | | | [place] | | | | | | [address] | | | | | | | | +--------+ + + + + | 12/17/ | Appointment | Infusion Therapy | Yancy Clifford MD | | | 2019 | | | [address] | | | | | | [place] | | | | | | [address] | | | | | | | | +--------+ + + + + | 01/07/ | Appointment | Infusion Therapy | Yancy Clifford MD | | | 2019 | | | [address] | | | | | | [place] | | | | | | [address] | | | | | | | | +--------+ + + + + | 01/07/ | Office | Oncology | Yancy Clifford MD | | | 2019 | Visit | | [address] | | | | | | [place] | | | | | | [address] | | | | | | | | +--------+ + + + + | 01/07/ | Appointment | Infusion Therapy | Yancy Clifford MD | | | 2019 | | | [address] | | | | | | [place] | | | | | | [address] | | | | | | | [...]
--- OUTSIDE RECORDS SUMMARY | ~2019-12-08 | XMS | Encounter Summary ---
Demographics + + + | Address | [address] | | | [place] [address] | + + + | Home Phone | | + + + | Preferred Language | Unknown | + + + | Marital Status | | + + + | Confucianism Affiliation | Unknown | + + + | Race | Unknown | + + + | Ethnic Group | Unknown | + + + Author + + + | Author | [facility] | | | and [place] | + + + | Organization | [facility] | | | [...] | | | | [place] [address] | | + + + + + | Emory Larios | ECON | Unknown | | + + + + + Care Team Providers + +------+ + | Care Decontaminator Name | Role | Phone | + [...] + + | 09/24/ | Office | [facility] | Yancy Clifford MD | Malignant neoplasm | | 2019 | Visit | HEMATOLOGY AND | [address] | of left ovary (HCC) | | | | ONCOLOGY [address] | [place] | (Primary Dx); | | | | [address] | [address] | 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 07/2017 Surgery S/p debulking surgery. Final pathology [...] - 0.10 K/uL Final Testing Performed at [facility], [address], [address], [place] [address] Na 09/24/2019 136 135 - 145 mmol/L Final Testing performed at [facility];[address];[place] [address] K 09/24/2019 4.1 3.5 - 4.9 mmol/L Final Testing performed at [facility];[address] [facility];[place] [address] Cl 09/24/2019 104 99 - 109 mmol/L Final Testing performed at [facility];[address] [facility];[place] [address] CO2 09/24/2019 26 23 - 32 mmol/L Final Testing Performed at [facility], [address], [address], [place] [address] Anion Gap 09/24/2019 10 5 - 20 mmol/L Final Testing performed at [facility];[address] [facility];[place] [address] Glucose 09/24/2019 182* 65 - 99 mg/dL [...] MDRD IDMS traceable equation. Testing Performed at [facility], [address], [address], [place] [address] Imaging: Assessment: ECO 59 yo lady with [...] examining the patient, review of medical records, adolescent counselor ing, coordination of care, and CPOE. [...] | | | 2019 | | | [address] | | | | | | [place] | | | | | | [address] | | | | | | | | +--------+ + + + + | 12/17/ | Office | Oncology | Yancy Clifford MD | | | 2019 | Visit | | [address] | | | | | | [place] | | | | | | [address] | | | | | | | | +--------+ + + + + | 12/17/ | Appointment | Infusion Therapy | Yancy Clifford MD | | | 2019 | | | [address] | | | | | | [place] | | | | | | [address] | | | | | | | | +--------+ + + + + | 01/07/ | Appointment | Infusion Therapy | Yancy Clifford MD | | | 2019 | | | [address] | | | | | | [place] | | | | | | [address] | | | | | | | | +--------+ + + + + | 01/07/ | Office | Oncology | Yancy Clifford MD | | | 2019 | Visit | | [address] | | | | | | [place] | | | | | | [address] | | | | | | | | +--------+ + + + + | 01/07/ | Appointment | Infusion Therapy | Yancy Clifford MD | | | 2020 | | | [address] | | | | | | [place] | | | | | | [address] | | | | | | | [...] | | | | | TCL;[address] [facility] | | | | | | [facility];[place] [address] | | | | | | | | | | + + + + + + + + | Specimen | + + | Blood | + + + + + + + | Performing | Address | City/State/Zipcode | Phone Number | | Organization | | | | + + + + + | REFERENCE LAB | [address] [place] [address] | [place] [address] | [phone] | | [facility] | Blvd. | | | | LABORATORY | | | | + + + + + | REFERENCE LAB | [address] [facility] | [place] [address] | | | [facility] | Blvd. | [...] | | | | | [place] [address] | | | | | | | | | | + + + + + + + + | Specimen | + + | Blood | + + + + + + + | Performing | Address | City/State/Zipcode | Phone Number | | Organization | | | | + + + + + | REFERENCE LAB | [address] [place] [address] | [place] [address] | [phone] | | [facility] | Blvd. | | | | LABORATORY | | | | + + + + + | REFERENCE LAB | [address] [place] [address] | [place] [address] | | | [facility] | Blvd. | [...] LAB | | | | performed at [facility];[address] | | [facility] | | | | [place] | | LABORATORY | | | | Blvd;[place] [address] | | | | | | | | | | + + + + + + + + | Specimen | + + | | + + + + + + + | Performing | Address | City/State/Zipcode | Phone Number | | Organization | | | | + + + + + | REFERENCE LAB | [address] [place] [address] | [place] [address] | [phone] | | [facility] | Blvd. | | | | LABORATORY | | | | + + + + + | REFERENCE LAB | [address] [place] [address] | [place] [address] | | | [facility] | Blvd. | [...] LAB | | | | performed at [facility];[address] | | [facility] | | | | [facility] | | LABORATORY | | | | [place]vd;[place] [address] | | | | | | | | | | + + + + + + + + | Specimen | + + | | + + + + + + + | Performing | Address | City/State/Zipcode | Phone Number | | Organization | | | | + + + + + | REFERENCE LAB | [address] [place] [address] | [place] [address] | [phone] | | [facility] | Blvd. | | | | LABORATORY | | | | + + + + + | REFERENCE LAB | [address] [place] [address] | [place] [address] | | | [facility] | Blvd. | [...] | | | urine | performed at [facility];[address] | | [facility] | | | | [place] | | LABORATORY | | | | Blvd;[place] [address] | | | | | | | | | | + + + + + + + + | Specimen | + + | | + + + + + + + | Performing | Address | City/State/Zipcode | Phone Number | | Organization | | | | + + + + + | REFERENCE LAB | [address] [facility] | [place] [address] | [phone] | | [facility] | Blvd. | | | | LABORATORY | | | | + + + + + | REFERENCE LAB | [address] | [place] [address] | | | [facility] | Blvd. | [...] - 1.030 | REFERENCE | | | [place], | | | LAB | | | [...] + + + | REFERENCE LAB | [address] [place] [address] | [place] [address] | [phone] | | [facility] | Blvd. | | | | LABORATORY | | | | + + + + + | REFERENCE LAB | [address] [place] [address] | [place] [address] | | | [facility] | Blvd. | [...] | | | RATIO,URINE | performed at [facility];[address] | | LAB | | | | [place] | | [facility] | | | | Blvd;[place] [address] | | LABORATORY | | + + + + + + + + | Specimen | + + | | + + + + + + + | Performing | Address | City/State/Zipcode | Phone Number | | Organization | | | | + + + + + | REFERENCE LAB | [address] [facility] | [place] [address] | [phone] | | [facility] | Blvd. | | | | LABORATORY | | | | + + + + + | REFERENCE LAB | [address] | [place] [address] | | | [facility] | Blvd. | [...]
--- OUTSIDE RECORDS SUMMARY | ~2019-12-08 | XMS | Encounter Summary ---
Demographics + + + | Address | [address] | | | [place] [address] | + + + | Home Phone [...] | | | | [place] [address] | | + + + + + | Emory Larios | ECON | Unknown | | + + + + + Care Team Providers + +------+ + | Care Hydraulic Elevator Constructor Name | Role | Phone | + +------+ + | Shannan Deng | PCP | | + +------+ + Encounter Details +--------+ + + + + | Date | Type | Department | Care Team | Description | +--------+ + + + + | 08/19/ | Orders Only | [facility] | Yancy Clifford MD | | | 2017 | | INFUSION SUPPORT | [address] | | | | | SERVICES [address] | [place], [place] | | | | | [address] [place] | [address] | | | | | [address] [place] | | | | | | [address] | | | | | | [phone] | | | +--------+ + + + [...] documented as of this encounter Progress Notes Aisstaou Teixeira, Provider Unknown - 08/19/2018 8:00 AM PDTFormatting of this note m ight be different from the original. Progress Notes by Bhakti Godfrey RN at 08/19/18 08 Author: Bhakti Godfrey RN Service: (none) Author Type: Registered Nurse Filed: 08/19/1848 Encounter Date: 08/19/2018 Status: Signed Unit Manager [employer]: Bhakti Godfrey RN (Registered Nurse) Port accessed. [...] [place] | | | | | | [address] | | | | | | | | +--------+ + + + + | 12/17/ | Appointment | Infusion Therapy | Yancy Clifford MD | | | 2019 | | | [address] | | | | | | [place] | | | | | | [address] | | | | | | | | +--------+ + + + + | 01/07/ | Appointment | Infusion Therapy | Yancy Clifford MD | | | 2019 | | | [address] | | | | | | [place] | | | | | | [address] | | | | | | | | +--------+ + + + + | 01/07/ | Office | Oncology | Yancy Clifford MD | | | 2019 | Visit | | [address] | | | | | | [place] | | | | | | [address] | | | | | | | | +--------+ + + + + | 01/07/ | Appointment | Infusion Therapy | Yancy Clifford MD | | | 2019 | | | [address] | | | | | | [place] | | | | | | [address] | | | | | | | [...]
--- OUTSIDE RECORDS SUMMARY | ~2019-12-08 | XMS | Encounter Summary ---
Demographics + + + | Address | [address] | | | [place] [address] | + + + | Home Phone [...] | | | | [place] [address] | | + + + + + | Emory Larios | ECON | Unknown | | + + + + + Care Team Providers + +------+ + | Care Groundskeeping Maintenance Worker Name | Role | Phone | [...] + + | 11/05/ | Telephone | [facility] | Yancy Clifford MD | LABS (add on) | | 2019 | | HEMATOLOGY AND | [address] | | | | | ONCOLOGY [address] | [place] | | | | | [address] | [address] | | | | | [place] | | | | | | [address] | | | | | | [phone] | | | +--------+ + + + [...] [place] | | | | | | [address] | | | | | | | | +--------+ + + + + | 12/17/ | Office | Oncology | Yancy Clifford MD | | | 2019 | Visit | | [address] | | | | | | [place] | | | | | | [address] | | | | | | | | +--------+ + + + + | 12/17/ | Appointment | Infusion Therapy | Yancy Clifford MD | | | 2019 | | | [address] | | | | | | [place] | | | | | | [address] | | | | | | | | +--------+ + + + + | 01/07/ | Appointment | Infusion Therapy | Yancy Clifford MD | | | 2019 | | | [address] | | | | | | [place] | | | | | | [address] | | | | | | | | +--------+ + + + + | 01/07/ | Office | Oncology | Yancy Clifford MD | | | 2019 | Visit | | [address] | | | | | | [place] | | | | | | [address] | | | | | | | | +--------+ + + + + | 01/07/ | Appointment | Infusion Therapy | Yancy Clifford MD | | | 2019 | | | [address] | | | | | | [place] | | | | | | [address] | | | | | | | | +--------+ + + + + documented as of this encounter Visit Diagnoses Not on filedocumented in this encounter"
--- OUTSIDE RECORDS SUMMARY | ~2019-12-08 | XMS | Encounter Summary ---
Demographics + + + | Address | [address] | | | [place] [address] | + + + | Home Phone [...] + | Author | [facility] | | | and [place] | + + + | Organization | [facility] | | | and [...] | | | | [place] [address] | | + + + + + | Emory Larios | EBENEZER | Unknown | | + + + + + Care Team Providers + +------+ + | Care Greeting Card Writer Name | Role | Phone | + [...] + + | 09/03/ | Office | [facility] | Yancy Clifford MD | Malignant neoplasm | | 2019 | Visit | HEMATOLOGY AND | [address] | of left ovary (HCC) | | | | ONCOLOGY [address] | [place] | (Primary Dx) | | | | [address] | [address] | | | | | [place] | | | | | | [address] | Jennyfer Calvert | | | | | [phone] | M, TRUCKER HAND [address] | | | | | | [address] | | | | | | [place] [address] | | | | | | [phone] | | | | | | | [...] might be differ ent from the original. [facility] Hematology & Oncology Oncology Progress Note [...] 05/2017 Genetic Testing Negative genetic testing through [employer]. 07/2017 Surgery S/p debulking surgery. Final pathology [...] 35 U/mL Final Comment: THE SIEMENS (FORMERLY VULCUN) ADVIA JamnAUR IMMUNOASSAY METHOD IS USED. RESULTS OBTAINED WITH DIFFERENT ASSAY METHODS OR KITS CANNOT BE USED INTERCHANGEABLY. Testing performed at [facility];[address] [facility];[place] [address] Ct Chest Abdomen Pelvis W Contrast Result [...] and coordination of care. CIERRA [place], MIKE [facility] Hematology Oncology 09/03/2019 Portions of this [...] [place] | | | | | | [address] | | | | | | | | +--------+ + + + + | 12/17/ | Office | Oncology | Yancy Clifford MD | | | 2019 | Visit | | [address] | | | | | | [place] | | | | | | [address] | | | | | | | | +--------+ + + + + | 12/17/ | Appointment | Infusion Therapy | Yancy Clifford MD | | | 2019 | | | [address] | | | | | | [place] | | | | | | [address] | | | | | | | | +--------+ + + + + | 01/07/ | Appointment | Infusion Therapy | Yancy Clifford MD | | | 2019 | | | [address] | | | | | | [place] | | | | | | [address] | | | | | | | | +--------+ + + + + | 01/07/ | Office | Oncology | Yancy Clifford MD | | | 2019 | Visit | | [address] | | | | | | [place] | | | | | | [address] | | | | | | | | +--------+ + + + + | 01/07/ | Appointment | Infusion Therapy | Yancy Clifford MD | | | 2020 | | | [address] | | | | | | [place] | | | | | | [address] | | | | | | | | +--------+ + + + + documented as of this encounter Visit Diagnoses + + | Diagnosis | + + | 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
--- OUTSIDE RECORDS SUMMARY | ~2019-12-08 | XMS | Encounter Summary ---
Demographics + + + | Address | [address] | | | [place] [address] | + + + | Home Phone | | + + + | Preferred Language | Unknown | + + + | Marital Status | | + + + | Yazidi Affiliation | Unknown | + + + | Race | Unknown | + + + | Ethnic Group | Unknown | + + + Author + + + | Author | [facility] | | | and [place] | + + + | Organization | [facility] | | [...] | | | | [place] [address] | | + + + + + | Emory Larios | ECON | Unknown | | + + + + + Care Team Providers + +------+ + | Care Natural Gas Shothole Driller Name | Role | Phone | + [...] + + | 08/13/ | Office | [facility] | Yancy Clifford MD | Malignant neoplasm | | 2019 | Visit | HEMATOLOGY AND | [address] | of left ovary (HCC) | | | | ONCOLOGY [address] | [place] | (Primary Dx) | | | | [address] | [address] | | | | | [place] | | | | | | [address] | Jennyfer Calvert | | | | | [phone] | CIERRA Lou [address] | | | | | | [address] | | | | | | [place] [address] | | | | | | [phone] | | | | | | | [...] + documented in this encounter Progress Notes Jennfyer Calvert, INVESTMENT DIRECTOR - 08/13/2019 9:45 AM PDTFormatting of this [...] 05/2017 Genetic Testing Negative genetic testing through [employer]. 07/2017 Surgery S/p debulking surgery. Final pathology [...] ANISO NORMAL PLT MORPH Testing Performed at [facility], [address] [facility], [address], [place] [address] Na 08/13/2019 139 135 - 145 mmol/L [...] MDRD IDMS traceable equation. Testing Performed at [facility], [address], [address], [place] [address] PRO/CREA RATIO,URINE 08/13/2019 0.293 Final Testing performed at [facility];[address] [facility];[place] [address] Color, UA 08/13/2019 YELLOW Final Clarity, UA 08/13/2019 CLEAR Final Specific [place], Urine 08/13/2019 1.025 1.002 - 1.030 Final [...] NEGATIVE NEG mg/dL Final Testing Performed at [facility], [address], [address], [place] [address] Creatinine, random urine 08/13/2019 167.0 mg/dL Final Comment: NO NORMAL RANGE ESTABLISHED Testing performed at [facility];[address] [facility];[place] [address] Protein, Urine 08/13/2019 49 mg/dL Final Comment: NO NORMAL RANGE ESTABLISHED Testing performed at [facility];[address] [facility];[place] [address] WBC UA 08/13/2019 0-2 0 - 5 /hpf Final RBC UA 08/13/2019 0-2 0 - 5 /hpf Final SQUAMOUS EPITHELIAL UA 08/13/2019 16-25 /lpf Final BACTERIA UA 08/13/2019 TRACE* NONE Final MUCUS UA 08/13/2019 4+ Final CASTS 08/13/2019 1-5 /lpf Final Comment: HYALINE Testing Performed at [facility], [address], [address], [place] [address] Ct Chest Abdomen Pelvis W Contrast Result [...] [place] | | | | | | [address] | | | | | | | | +--------+ + + + + | 12/17/ | Office | Oncology | Yancy Clifford MD | | | 2019 | Visit | | [address] | | | | | | [place] | | | | | | [address] | | | | | | | | +--------+ + + + + | 12/17/ | Appointment | Infusion Therapy | Yancy Clifford MD | | | 2019 | | | [address] | | | | | | [place] | | | | | | [address] | | | | | | | | +--------+ + + + + | 01/07/ | Appointment | Infusion Therapy | Yancy Clifford MD | | | 2019 | | | [address] | | | | | | [place] | | | | | | [address] | | | | | | | | +--------+ + + + + | 01/07/ | Office | Oncology | Yancy Clifford MD | | | 2019 | Visit | | [address] | | | | | | [place] | | | | | | [address] | | | | | | | | +--------+ + + + + | 01/07/ | Appointment | Infusion Therapy | Yancy Clifford MD | | | 2019 | | | [address] | | | | | | [place] | | | | | | [address] | | | | | | | [...] | | | | | TCL;[address] [facility] | | | | | | [facility];[place] [address] | | | | | | | | | | + + + + + + + + | Specimen | + + | Blood | + + + + + + + | Performing | Address | City/State/Zipcode | Phone Number | | Organization | | | | + + + + + | REFERENCE LAB | [address] [place] [address] | [place] [address] | [phone] | | [facility] | Blvd. | | | | LABORATORY | | | | + + + + + | REFERENCE LAB | [address] [place] [address] | [place] [address] | | | [facility] | Blvd. 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
--- OUTSIDE RECORDS SUMMARY | ~2019-12-08 | XMS | Encounter Summary ---
Demographics + + + | Address | [address] | | | [place] [address] | + + + | Home Phone [...] | | | | [place] [address] | | + + + + + | Emory Larios | ECON | Unknown | | + + + + + Care Team Providers + +------+ + | Care Sewing Machine Repairer Helper Name | Role | Phone | [...] | | Ascites, | [place], | [place] [address] | | | | | malignant | [place] [address] | Phone: | | | | | Procedures | Phone: | [phone] | | | | | [place] | [phone] | Fax: | | | | | BEVACIZUM[place] | Fax: | [phone] | | | | | INJECTION, | [phone] | | | | | | 10 [...] + + | 07/23/ | Hospital | [facility] | Yancy Clfiford MD | Malignant neoplasm | | 2019 | Encounter | HEMATOLOGY AND | [address] | of left ovary (HCC) | | | | ONCOLOGY INFUSIONS | [place] | (Primary Dx); | | | | [address] | [address] | Ascites, malignant | | | | [address]VE [place], [place] | | | | | | [address] | Yumiko Crocker, | | | | | [phone] | RN | | +--------+ + + [...] It is given by a health healthcare risk control consultant in a h ospital or clinic setting. Talk to your dust operator regarding the use of this medicine in children. Special care may be needed. What side effects may I notice from receiving this medicine? Side effects that you should report to your doctor or health healthcare risk control consultant as soon as p ossible: allergic reactions [...] (report to your doctor or health healthcare risk control consultant if they continue or are bothersome): back pain changes in taste decreased appetite dry skin nausea tiredness What may interact with this medicine? Interactions are not expected. What if I miss a dose? It is important not to miss your dose. Call your doctor or health healthcare risk control consultant if you are unable to keep an [...] talk to your doctor or health healthcare risk control consultant if you are concerned about your fertility. [...] 0845 - IVT LAB DRAW with CATRACHITO OBO SS LAB DRAW in [facility] INFUSION SUPPORT SERVICES 08/13/2019 0945 - Office Visit Extended with CIERRA Hartley in [facility] HEMATOLOGY AND ONCOLOGY 08/13/2019 1015 - Onc Infusion with [facility] CHAIR 04 in [facility] HEMATOLOGY AND ONCOLOGY INFUSIONS 08/13/2019 1230 - Office Visit Regular appointment starts at 1240 with Scott Boswell MD in [facility] PULMONOLOGY 12:1 3 PM PDTdocumented [...] [place] | | | | | | [address] | | | | | | | | +--------+ + + + + | 12/17/ | Office | Oncology | Yancy Clifford MD | | | 2019 | Visit | | [address] | | | | | | [place] | | | | | | [address] | | | | | | | | +--------+ + + + + | 12/17/ | Appointment | Infusion Therapy | Yancy Clifford MD | | | 2019 | | | [address] | | | | | | [place] | | | | | | [address] | | | | | | | | +--------+ + + + + | 01/07/ | Appointment | Infusion Therapy | Yancy Clifford MD | | | 2019 | | | [address] | | | | | | [place] | | | | | | [address] | | | | | | | | +--------+ + + + + | 01/07/ | Office | Oncology | Yancy Clifford MD | | | 2019 | Visit | | [address] | | | | | | [place] | | | | | | [address] | | | | | | | | +--------+ + + + + | 01/07/ | Appointment | Infusion Therapy | Yancy Clifford MD | | | 2019 | | | [address] | | | | | | [place] | | | | | | [address] | | | | | | | [...] | | | | | NS, Starting [facility] 07/23/19 at 1042 | | | | | | + +---------+ +---------+ +---+ +---+---+ | | | +---+---+ documented in this encounter"
--- OUTSIDE RECORDS SUMMARY | ~2019-12-08 | XMS | Encounter Summary ---
Demographics + + + | Address | [address] | | | [place] [address] | + + + | Home Phone [...] | | | | [place] [address] | | + + + + + | Emory Larios | ECON | Unknown | | + + + + + Care Team Providers + +------+ + | Care Organ Pipe Voicer Name | Role | Phone | + [...] Provider Unknown | | | | | [place], [place] | [phone] | | | | | [address] | | | | | | [phone] | | | +--------+ + + + [...] [place] | | | | | | [address] | | | | | | | | +--------+ + + + + | 12/17/ | Office | Oncology | Yancy Clifford MD | | | 2019 | Visit | | [address] | | | | | | [place] | | | | | | [address] | | | | | | | | +--------+ + + + + | 12/17/ | Appointment | Infusion Therapy | Yancy Clifford MD | | | 2019 | | | [address] | | | | | | [place] | | | | | | [address] | | | | | | | | +--------+ + + + + | 01/07/ | Appointment | Infusion Therapy | Yancy Clifford MD | | | 2019 | | | [address] | | | | | | [place] | | | | | | [address] | | | | | | | | +--------+ + + + + | 01/07/ | Office | Oncology | Yancy Clifford MD | | | 2019 | Visit | | [address] | | | | | | [place] | | | | | | [address] | | | | | | | | +--------+ + + + + | 01/07/ | Appointment | Infusion Therapy | Yancy Clifford MD | | | 2019 | | | [address] | | | | | | [place] | | | | | | [address] | | | | | | | | +--------+ + + + + documented as of this encounter Visit Diagnoses Not on filedocumented in this encounter"
--- OUTSIDE RECORDS SUMMARY | ~2019-12-08 | XMS | Encounter Summary ---
Demographics + + + | Address | [address] | | | [place] [address] | + + + | Home Phone [...] | | | | | [place] [address] | | + + + + + | Emory Larios | ECON | Unknown | | + + + + + Care Team Providers + +------+ + | Care Project Facilitator Name | Role | Phone | + +------+ + PCP | Unavailable | + +------+ + Encounter Details +--------+ + + + + | Date | Type | Department | Care Team | Description | +--------+ + + + + | 06/29/ | Abstract | [facility] | Adriana Velasco | Malignant neoplasm | | 2019 | | HEMATOLOGY AND | A, HOOKER MACHINE TENDER | of left ovary (HCC); | | | | ONCOLOGY [address] | | Ascites, malignant | | | [address] | | | | | | [place] | | | | | | [address] | | | | | | [phone] | | | +--------+ + + + [...] [place] | | | | | | [address] | | | | | | | | +--------+ + + + + | 12/17/ | Office | Oncology | Yancy Clifford MD | | | 2019 | Visit | | [address] | | | | | | [place] | | | | | | [address] | | | | | | | | +--------+ + + + + | 12/17/ | Appointment | Infusion Therapy | Yancy Clifford MD | | | 2019 | | | [address] | | | | | | [place] | | | | | | [address] | | | | | | | | +--------+ + + + + | 01/07/ | Appointment | Infusion Therapy | Yancy Clifford MD | | | 2019 | | | [address] | | | | | | [place] | | | | | | [address] | | | | | | | | +--------+ + + + + | 01/07/ | Office | Oncology | Yancy Clifford MD | | | 2019 | Visit | | [address] | | | | | | [place] | | | | | | [address] | | | | | | | | +--------+ + + + + | 01/07/ | Appointment | Infusion Therapy | Yancy Clifford MD | | | 2019 | | | [address] | | | | | | [place] | | | | | | [address] | | | | | | | | +--------+ + + + + documented as of this encounter Visit Diagnoses + + | Diagnosis | + + | Malignant neoplasm of left ovary (HCC) Malignant neoplasm of ovary | + + | Ascites, malignant Malignant ascites | + + documented in this encounter
--- OUTSIDE RECORDS SUMMARY | ~2019-12-08 | XMS | Encounter Summary ---
Demographics + + + | Address | [address] | | | [place] [address] | + + + | Home Phone | | + + + | Preferred Language | Unknown | + + + | Marital Status | | + + + | Temple Affiliation | Unknown | + + + [...] | | | | | [place] [address] | | + + + + + | Emory Larios | ECON | Unknown | | + + + + + Care Team Providers + +------+ + | Care Telecommunications Repairer Name | Role | Phone | + +------+ + PCP | Unavailable | + +------+ + Encounter Details +--------+ + + + + | Date | Type | Department | Care Team | Description | +--------+ + + + + | 05/13/ | Hospital | [facility] | Jared Piña, | | | 2019 - | Encounter | [facility] | MD [address] | | | | | CARE FLOOR [address] | [place] [address] | | | 05/16/ | | [address] | [phone] | | | 2018 | | [place], [place] | | | | | | [address] | | | | | | [phone] | | | +--------+ + + + [...] 1511 Date of Service: 05/16/19822 Status: Signed Selling Specialist: Kristine Toussaint DO (Physician) Patient: Ramila Lopez [...] arthritis, asthma, DVT, dyslipidemia. She presented [facility] ED on 05/13/19 with complaints of epistaxis. At that time her labs were nota ble for platelets 13, Hb 7.6, Hct 22.3. She was transferred to [facility] as there was no transfus ion services available at that time. Upon arrival to [facility] Oncology and ENT Dr. Hinds was [...] Discharge Information: Follow up: Jonnathan Hinds MD [address] [id number] [facility] [id number] On 05/18/2019 For nasal packing removal Per Pt None Yancy Clifford MD [address] [facility] [address] Medication List START taking these medications amoxicillin-clavulanate [...] Date of Service: 05/16/19 141 Status: Signed Selling Specialist: Burak Brooks RN (Registered Nurse) Education provided [...] Date of Service: 05/16/19 110 Status: Signed Selling Specialist: Yancy Clifford MD (Physician) [facility] Service: Hematology and Oncology Progress Note [...] Jaida Shen RN Service: (none) Author Type: Warehouse Inventory Clerk Filed: 05/15/19 1539 Date of Service: 05/15/19 153 Status: Signed Selling Specialist: Jaida Shen RN (Warehouse Inventory Clerk) CM attended daily medical team rounding. Pt is from home with spouse and will return home w hen medically stable. Kristine Burns DO - 05/15/2019 11:26 AM PDT Progress Notes by Kristine Toussaint DO at 05/15/19 1126 Author: Kristine Toussaint DO Service: Hospitalist Author Type: Physician Filed: 05/15/19 1134 Date of Service: 05/15/19 1126 Status: Signed Selling Specialist: Kristine Toussaint DO (Physician) [facility] Service: Hospitalist Progress Note Hospital Day: LOS: 2 days Post-Op Day: * No surgery found * SUBJECTIVE Patient Summary: Patient is a 58 yo F with PMHx of metastatic ovarian CA (last chemotherap y treatment last week; under treatment by Dr. Venessa Correa), arthritis, asthma, DVT, dyslipidemi a. She presented to [facility]'s ED on 05/13/19 with complaints of epistaxis. At that time her labs were notable for platelets 13, Hb 7.6, Hct 22.3. She was transferred to [facility] as the re was no transfusion services available at that time. Upon arrival to [facility] Oncology and ENT Dr. Hinds were [...] on Saturday if no ENT available in [place]. Juliano l transition to Augmentin for prophylaxis. [...] Advanced R egistered Nurse Practitioner Filed: 05/15/19 6939 Date of Service: 05/15/19930 Status: Signed Selling Specialist: CIERRA Joshi (Advanced Registered Nurse Practitioner) [facility] Service: Hematology and Oncology Progress Note Hospital Day: LOS: 2 days Patient Summary: Ms. Ramila Lopez is a 58 year old woman who presented to ER in [place] in April 2017 second yunior to dyspnea and abdominal distention. CT of the chest, abdomen and pelvis April 04, 2017 at [facility] revealed left pleural effusion with a left ovarian mass measuring 7. 6 X 5 X 5.8 cm with omental caking and ascites. CA 125 was nearly 2000. She underwent parac entesis with removal of 3600 cc fluid and thoracentesis with removal of 700cc, with patholog y from both consistent with malignancy of ovarian primary. She was referred to [facility] and established with Dr. Nolasco. Given her [...] established with Dr. Clifford after moving to [place]. In December 2018, the patient experienced rising [...] May 13, 2019, the patient presented to [facility] ER secondary to epistaxis. The gaetano ent was seen in the ER by Dr. Diop. The patient was noted to be pancytopenic with platelet s 13,000, hemoglobin 7.6, and total white cell count 25,000. ER provider requested transfer to [facility] given the lack of platelets available in their facility. The patient received 2 un its of fresh frozen plasma prior to transfer and was admitted to [facility] for further manageme nt. SUBJECTIVE: Events [...] (none) Author Type: Registered Nurse Filed: 05/14/19 9610 Date of Service: 05/14/191708 Status: Signed Selling Specialist: Senait Lehman RN (Registered Nurse) Transfused 2 [...] 1422 Date of Service: 05/14/191420 Status: Signed Selling Specialist: Alisha De La Torre RD (Registered Dietitian) 05/14/19 1400 Subjective Timepoint Admit Pt c/o Pt triggered for screen secondary to dysphagia. Admitted d/t pancytopenia, had intra ctable nose bleed. Reported by Patient Diet Experience Self-selected diet(s) followed Reports she was eating well HAM BONER, follows no special diet. Sadler d a BLT before transferring to [facility]. Fluid / Beverage Intake Oral Fluids [...] expressed frustratio n with restrictive diet. Recommend CONCRETE SPREADER evaluation to determine safest diet or liberalizing i f appropriate. Anthropometrics Weight change Admit wt: 87.5 kg. BMI of 33 considered obese. Pt reports wt has been stable , medical records confirm. Monitor wt trend. Biochemical data, medical tests, and procedures reviewed Biochemical data, medical tests, and procedures reviewed Labs reviewed. Estimated Energy Needs Total Energy Estimated Needs 2733-6092 kcal/day Method for Estimating Needs 25-30 kcal/kg per 62.78 AdjBW Estimated Protein Needs Total Protein Estimated Needs 75-94 g/day Method for Estimating Needs 1.2-1.5 g/kg Recommendations Recommended energy needs General diet with modified textures as needed. Recommend CONCRETE SPREADER evalu ation to determine safest PO intake, liberalize diet as possible to promote adequate intake. Monitor and follow per protocol. Nutritional Risk Nutritional risk Moderate Follow up date 05/19/19 Lynne John John, JORDY 05/14/2019 onver yuri Teixeira, Provider Unknown - 05/14/2019 11:51 AM PDT Case Management by Jaida Shen RN at 05/14/19 1151 Author: Jaida Shen RN Service: (none) Author Type: Warehouse Inventory Clerk Filed: 05/14/19 1231 Date of Service: 05/14/19 1151 Status: Signed Selling Specialist: Jaida Shen RN (Warehouse Inventory Clerk) 05/14/19 1143 Discharge Planning Evaluation Admitting Diagnosis Pancytopenia Readmission No Living Arrangements Spouse/significant other Support Systems Spouse/significant other;Children;Family members Type of Residence Private residence House type House-1 story Independent with ADL's Yes Independent with Mobility Yes Home Care Services No Caregiver after Discharge Yes Caregiver Name Jared Lopez Relationship to Patient spouse Phone number [phone] Mental Status Oriented Prior functional status independent [...] cancer. Pt lives with her spouse in [place], [place] and has been independent with adls [...] Service: Hospitalist Author Type: Physician Filed: 05/14/19 1145 Date of Service: 05/14/191129 Status: Signed Selling Specialist: Star Cedeño MD (Physician) [facility] Service: Hospitalist Progress Note Hospital Day: [...] 05/14/19619 Date of Service: 05/14/19616 Status: Signed Selling Specialist: Anitha Simons RN (Registered Nurse) End of [...] 05/13/191826 Date of Service: 05/13/191826 Status: Signed Selling Specialist: Jessica Garza RPH (Pharmacist) Clinical Pharmacy Note: [...] d adjust accordingly. Jessica Garza Pharm D, [facility] 05/13/2019 6:26 PM onver yuri Transaction, Provider Unknown - 05/13/2019 6:00 PM PDT Progress Notes by Jessica Garza RPH at 05/13/19 1800 Author: Jessica Garza RPH Service: Pharmacy Author Type: Pharmacist Filed: 05/13/191799 Date of Service: 05/13/19 1800 Status: Signed Selling Specialist: Jessica Garza RPH (Pharmacist) Clinical Pharmacy Note: [...] appropriate dosing per renal function. Jessica Garza [facility] 5:59 PM 05/13/2019 Pharmacist onver yuri Teixeira, Provider Unknown - 05/13/2019 4:53 PM PDT Nurse Progress Note by Jillian Cruz RN at 05/13/191652 Author: Jillian Cruz RN Service: (none) Author Type: Registered Nurse Filed: 05/13/191815 Date of Service: 05/13/191652 Status: Addendum Selling Specialist: Jillian Cruz RN (Registered Nurse) Related Notes: Original Note by Jillian Cruz RN (Registered Nurse) filed at 05/13/19 16 55 End of Shift Note: Pt admitted to floor resting comfortably in bed. [place] in place, but pt reports that nose is still oozing down throat. HAM BONER med list reviewed and complete. Pt states [...] [place] | | | | | | [address] | | | | | | | | +--------+ + + + + | 12/17/ | Office | Oncology | Yancy Clifford MD | | | 2019 | Visit | | [address] | | | | | | [place] | | | | | | [address] | | | | | | | | +--------+ + + + + | 12/17/ | Appointment | Infusion Therapy | aYncy Clifford MD | | | 2019 | | | [address] | | | | | | [place] | | | | | | [address] | | | | | | | | +--------+ + + + + | 01/07/ | Appointment | Infusion Therapy | Yancy Clifford MD | | | 2019 | | | [address] | | | | | | [place] | | | | | | [address] | | | | | | | | +--------+ + + + + | 01/07/ | Office | Oncology | Yancy Clifford MD | | | 2019 | Visit | | [address] | | | | | | [place] | | | | | | [address] | | | | | | | | +--------+ + + + + | 01/07/ | Appointment | Infusion Therapy | Yancy Clifford MD | | | 2019 | | | [address] | | | | | | [place] | | | | | | [address] | | | | | | | [...] | | | | | | at [facility], [address] | | | | | | [facility], | | | | | | [place] [address] | | | | | |Testing performed at [facility], [address] [place] [address] | | | | | | | [...] | | | | | performed at [facility], [address] | | | | | | [facility], | | | | | | [place] [address] | | | | + + + [...] LAB | | | | performed at [facility], [address] | | | | | | [address], | | | | | | [place] [address] | | | | | | | [...] | | | | | performed at [facility];[address] | | | | [address];[place] | | | | | | [address] | | | | + + + [...] LAB | | | | TCL, [address] [facility] | | | | | | [place] | | | | | | [address] | | | | + + + [...] | | | | | [place] [address] | | | | + + + [...] EXTERNAL | | | | performed at [facility], [address] | | LAB | | | | [address], | | | | | | [place] [address] | | | | + + + [...] [place], | | | | | | [place] [address] | | | | + + + [...] - 1.030 | EXTERNAL | | | [place] | | | LAB | | + [...] EXTERNAL | | | | performed at [facility] | | LAB | | | | [address];[place], [place] | | | | | | [address] | | | | + + + [...] + + | Historically converted procedure from [facility] environment | EXTERNAL LAB | + [...] | | | Patient | performed at [facility];[address] | | LAB | | | | [address];[place], [place] | | | | | | [address] | | | | + + + [...] | | | | | performed at [facility];[address] | | | | | | [address];[place], [place] | | | | | | [address] | | | | + + + [...] | | | Plasma | 6RP [id number] TAZLINA | | | | | |KEISHA Stephenson RN 6RP [id number] TAZLINA | | | | | | | [...] | | | | | performed at [facility];[address] | | | | | | [facility];[place], [place] | | | | | | [address] | | | | | |Testing performed at [facility];[address] [place] [address];[place] [address] | | | | | | | [...] EXTERNAL | | | | performed at [facility] | | LAB | | | | [address];[place] | | | | | | [address] | | | | + + + [...] EXTERNAL | | | | performed at [facility];[address] | | LAB | | | | [address];[place], [place] | | | | | | [address] | | | | + + + [...] | | | | | performed at [facility];[address] | | | | | | [facility];[place], [place] | | | | | | [address] | | | | + + + [...]
--- OUTSIDE RECORDS SUMMARY | ~2019-12-08 | XMS | Encounter Summary ---
Demographics + + + | Address | [address] | | | [place] [address] | + + + | Home Phone | | + + + | Preferred Language | Unknown | + + + | Marital Status | | + + + | Confucianist Affiliation | Unknown | + + + | Race | Unknown | + + + | Ethnic Group | Unknown | + + + Author + + + | Author | [facility] | | | and [place] | + + + | Organization | [facility] | | | [...] | | | | [place] [address] | | + + + + + | Emory Larios | ECON | Unknown | | + + + + + Care Team Providers + +------+ + | Care Child Watch Attendant Name | Role | Phone | [...] | | | Ascites, | [place], | [place] [address] | | | | | malignant | [place] [address] | Phone: | | | | | Procedures | Phone: | [phone] | | | | | [place] | [phone] | Fax: | | | | | BEVACIZUMAB | Fax: | [phone] | | | | | INJECTION, | [phone] | | | | | | 10 [...] + + | 10/15/ | Hospital | [facility] | Yancy Clifford MD | Malignant neoplasm | | 2019 | Encounter | HEMATOLOGY AND | [address] | of left ovary (HCC) | | | | ONCOLOGY INFUSIONS | [facility] [address] | (Primary Dx); | | | | [address] | [address] | Ascites, malignant | | | | [address] [place], [place] | | | | | | [address] | Ekta Kamara RN | | | | | [phone] | | | +--------+ + + + [...] prevent mouth sores: Keep your mouth clean. [place] your teeth with a soft-bristle toothbrush after [...] baking soda to clean your mouth. M [id number] salt [id number] of baking soda in 1 quart of [...] begins to ooze Burning when you urinate Eohtpde140.4F (38C) ordwain awadas directed by your healthcare provider Date Last Reviewed: 04/01/201619997585-2359 [employer]. [address] [place] [address], [place] [address]. All righ ts reserved. This information is [...] CATRACHITO BOO SS LAB DRAW in [facility] HO INFUSION SUPPORT SERVICES 2:15 PM: Office Visit Extended Appointment starts at 2:30 PM with Yancy Clifford MD in [facility] HEMATOLOGY AND ONCOLOGY 3:00 PM: Onc Infusion with JAZZY CHAIR [address] [facility] HEMATOLOGY AND ONCOLOGY INFUSIONS Annabella Sanchez RN [...] [place] | | | | | | [address] | | | | | | | | +--------+ + + + + | 12/17/ | Office | Oncology | Yancy Clifford MD | | 2019 | Visit | | [address] | | | | | | [place] | | | | | | [address] | | | | | | | | +--------+ + + + + | 12/17/ | Appointment | Infusion Therapy | Yancy Clifford MD | | | 2019 | | | [address] | | | | | | [place] | | | | | | [address] | | | | | | | | +--------+ + + + + | 01/07/ | Appointment | Infusion Therapy | Yancy Clifford MD | | | 2019 | | | [address] | | | | | | [place] | | | | | | [address] | | | | | | | | +--------+ + + + + | 01/07/ | Office | Oncology | Yancy Clifford MD | | | 2019 | Visit | | [address] | | | | | | [place] | | | | | | [address] | | | | | | | | +--------+ + + + + | 01/07/ | Appointment | Infusion Therapy | Yancy Clifford MD | | | 2020 | | | [address] | | | | | | [place] | | | | | | [address] | | | | | | | [...] | | | | | Intracatheter, ONCE, [facility] 10/15/19 | | AM PST [...]
--- OUTSIDE RECORDS SUMMARY | ~2019-12-08 | XMS | Encounter Summary ---
Demographics + + + | Address | [address] | | | [place] [address] | + + + | Home Phone [...] | | | | [place] [address] | | + + + + + | Emory Larios | ECON | Unknown | | + + + + + Care Team Providers + +------+ + | Care Central Sterile Tech Name | Role | Phone | + +------+ + | Shannan Deng | PCP | | + +------+ + Encounter Details +--------+ + + + + | Date | Type | Department | Care Team | Description | +--------+ + + + + | 07/17/ | Orders Only | [facility] | Scott Boswell MD | Moderate persistent | | 2019 | | PULMONOLOGY [address] | [address] | asthma, | | | | [address] | [place], [place] | uncomplicated; | | | | [place], [place] | [address] | Malignant neoplasm | | | | [address] | | of left ovary (HCC) | | | | [phone] | | | +--------+ + + + [...] [place] | | | | | | [address] | | | | | | | | +--------+ + + + + | 12/17/ | Office | Oncology | Yancy Clifford MD | | | 2019 | Visit | | [address] | | | | | | [place] | | | | | | [address] | | | | | | | | +--------+ + + + + | 12/17/ | Appointment | Infusion Therapy | Yancy Clifford MD | | | 2019 | | | [address] | | | | | | [place] | | | | | | [address] | | | | | | | | +--------+ + + + + | 01/07/ | Appointment | Infusion Therapy | Yancy Clifford MD | | | 2019 | | | [address] | | | | | | [place] | | | | | | [address] | | | | | | | | +--------+ + + + + | 01/07/ | Office | Oncology | Yancy Clifford MD | | | 2019 | Visit | | [address] | | | | | | [place] | | | | | | [address] | | | | | | | | +--------+ + + + + | 01/07/ | Appointment | Infusion Therapy | Yancy Clifford MD | | | 2020 | | | [address] | | | | | | [place] | | | | | | [address] | | | | | | | [...] Routin | Moderate | Expected: | | [place] | | e | persistent asthma, | [...]
--- OUTSIDE RECORDS SUMMARY | ~2019-12-08 | XMS | Encounter Summary ---
Demographics + + + | Address | [address] | | | [place] [address] | + + + | Home Phone [...] | | | | [place] [address] | | + + + + + | Emory Larios | EBENEZER | Unknown | | + + + + + Care Team Providers + +------+ + | Care Home Administrator Name | Role | Phone | + [...] + + | 11/27/ | Office | [facility] | Yancy Clifford MD | Malignant neoplasm | | 2019 | Visit | HEMATOLOGY AND | [address] | of left ovary (HCC) | | | | ONCOLOGY [address] | [place] | (Primary Dx) | | | | [address] | [address] | | | | | [place] | | | | | | [address] | Jennyfer Calvert | | | | | [phone] | CIERRA Lou [address] | | | | [address] | | | | | | [place] [address] | | | | | | [phone] | | | | | | | [...] 05/2017 Genetic Testing Negative genetic testing through [facility]. 07/2017 Surgery S/p debulking surgery. Final pathology [...] for ovarian cancer and ernestina pena for treatment. [...] - 145 mmol/L Final Testing performed at [facility];[address] [facility];[place] [address] K 11/27/2019 4.3 3.5 - 4.9 mmol/L Final Testing performed at [facility];[address] [facility];[place] [address] Cl 11/27/2019 106 99 - 109 mmol/L Final Testing performed at [facility];[address] [facility];[place] [address] CO2 11/27/2019 27 23 - 32 mmol/L Final Testing Performed at [facility], [address], [address], [place] [address] Anion Gap 11/27/2019 9 5 - 20 mmol/L Final Testing performed at [facility];[address] [facility];[place] [address] Glucose 11/27/2019 135* 65 - 99 mg/dL [...] MDRD IDMS traceable equation. Testing Performed at [facility], [address], [address], [place] [address] WBC 11/27/2019 8.16 3.80 - 11.00 K/uL [...] Estimate 11/27/2019 ADEQUATE Final Testing Performed at [facility], [address], [address], [place] [address] Imaging: Ct Chest Abdomen Pelvis W Contrast Result Date: 10/16/2019 Summary of Target Lesions: 1. Left periaortic node, image 160, 1.1 cm, previously 0.5 cm 2. Left external iliac node, image 214, 1.6 cm, previously 0.8 cm Comments: Recurrent disease and low retroperitoneal and bilateral pelvic lymph nodes. Signed by: Catracho Chinchilla Scott Sign Date/Time: 10/16/2019 2:47 PM Assessment: Ms. Ramila Lopez is a pleasant 59 yo female [...] and coordination of care. CIERRA Hartley, [facility] Hematology Oncology 11/27/2019 Portions of this chart [...] [place] | | | | | | [id number] | | | | | | | | +--------+ + + + + | 12/17/ | Office | Oncology | Yancy Clifford MD | | | 2019 | Visit | | [address] | | | | | | [place] | | | | | | [id number] | | | | | | | | +--------+ + + + + | 12/17/ | Appointment | Infusion Therapy | Yancy Clifford MD | | | 2019 | | | [address] | | | | | | [place] | | | | | | [address] | | | | | | | | +--------+ + + + + | 01/07/ | Appointment | Infusion Therapy | Yancy Clifford MD | | | 2019 | | | [address] | | | | | | [place] | | | | | | [address] | | | | | | | | +--------+ + + + + | 01/07/ | Office | Oncology | Yancy Clifford MD | | | 2019 | Visit | | [address] | | | | | | [place] | | | | | | [address] | | | | | | | | +--------+ + + + + | 01/07/ | Appointment | Infusion Therapy | Yancy Clifford MD | | | 2020 | | | [address] | | | | | | [place] | | | | | | [address] | | | | | | | | +--------+ + + + + documented as of this encounter Visit Diagnoses + + | Diagnosis | + + | 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
--- OUTSIDE RECORDS SUMMARY | ~2019-12-08 | XMS | Encounter Summary ---
Demographics + + + | Address | [address] | | | [place] [address] | + + + | Home Phone | | + + + | Preferred Language | Unknown | + + + | Marital Status | | + + + | Rastafarian Affiliation | Unknown | + + + | Race | Unknown | + + + | Ethnic Group | Unknown | + + + Author + + + | Author | [facility] | | | and [place] | + + + | Organization | [facility] | | | [...] | | | | [place] [address] | | + + + + + | Emory Larios | ECON | Unknown | | + + + + + Care Team Providers + +------+ + | Care Assembler Utility Buildings Name | Role | Phone | + [...] + + | 08/19/ | Telephone | [facility] | Yuli Serna | Triage | | 2019 | | SUPPORT SERVICES | Brittany, PULL TAB DEALER [address] | | | | | [address] | [address] | | | | | [address] | [place] [address] | | | | | [place], [place] | [phone] | | | | | [address] | | | | | | [phone] | | | +--------+ + + + [...] [place] | | | | | | [address] | | | | | | | [...] [place] | | | | | | [address] | | | | | | | | +--------+ + + + + | 01/07/ | Appointment | Infusion Therapy | Yancy Clifford MD | | | 2019 | | | [address] | | | | | | [place] | | | | | | [address] | | | | | | | | +--------+ + + + + | 01/07/ | Office | Oncology | Yancy Clifford MD | | | 2019 | Visit | | [address] | | | | | | [place] | | | | | | [address] | | | | | | | | +--------+ + + + + | 01/07/ | Appointment | Infusion Therapy | Yancy Clifford MD | | | 2019 | | | [address] | | | | | | [place] | | | | | | [address] | | | | | | | | +--------+ + + + + documented as of this encounter Visit Diagnoses Not on filedocumented in this encounter"
--- OUTSIDE RECORDS SUMMARY | ~2019-12-08 | XMS | Encounter Summary ---
Demographics + + + | Address | [address] | | | [place] [address] | + + + | Home Phone [...] | | | | [place] [address] | | + + + + + | Emory Larios | ECON | Unknown | | + + + + + Care Team Providers + +------+ + | Care Charging Operator Name | Role | Phone | [...] Provider Unknown | | | | | [place], [place] | [phone] | | | | | [address] | | | | | | [phone] | | | +--------+ + + + [...] [place] | | | | | | [address] | | | | | | | | +--------+ + + + + | 12/17/ | Office | Oncology | Yancy Clifford MD | | | 2019 | Visit | | [address] | | | | | | [place] | | | | | | [address] | | | | | | | | +--------+ + + + + | 12/17/ | Appointment | Infusion Therapy | Yancy Clifford MD | | | 2019 | | | [address] | | | | | | [place] | | | | | | [address] | | | | | | | | +--------+ + + + + | 01/07/ | Appointment | Infusion Therapy | Yancy Clifford MD | | | 2019 | | | [address] | | | | | | [place] | | | | | | [address] | | | | | | | | +--------+ + + + + | 01/07/ | Office | Oncology | Yancy Clifford MD | | | 2019 | Visit | | [address] | | | | | | [place] | | | | | | [address] | | | | | | | | +--------+ + + + + | 01/07/ | Appointment | Infusion Therapy | Yancy Clifford MD | | | 2019 | | | [address] | | | | | | [place] | | | | | | [address] | | | | | | | | +--------+ + + + + documented as of this encounter Visit Diagnoses Not on filedocumented in this encounter"
--- OUTSIDE RECORDS SUMMARY | ~2019-12-08 | XMS | Encounter Summary ---
Demographics + + + | Address | [address] | | | [place] [address] | + + + | Home Phone [...] | | | | [place] [address] | | + + + + + | Emory Larios | ECON | Unknown | | + + + + + Care Team Providers + +------+ + | Care Cytotechnologist/Histotechnologist Name | Role | Phone | + [...] Provider Unknown | | | | | [place], [place] | [phone] | | | | | [address] | | | | | | [phone] | | | +--------+ + + + [...] [place] | | | | | | [address] | | | | | | | | +--------+ + + + + | 12/17/ | Office | Oncology | Yancy Clifford MD | | | 2019 | Visit | | [address] | | | | | | [place] | | | | | | [address] | | | | | | | | +--------+ + + + + | 12/17/ | Appointment | Infusion Therapy | Yancy Clifford MD | | | 2019 | | | [address] | | | | | | [place] | | | | | | [address] | | | | | | | | +--------+ + + + + | 01/07/ | Appointment | Infusion Therapy | Yancy Clifford MD | | | 2019 | | | [address] | | | | | | [place] | | | | | | [address] | | | | | | | | +--------+ + + + + | 01/07/ | Office | Oncology | Yancy Clifford MD | | | 2019 | Visit | | [address] | | | | | | [place] | | | | | | [address] | | | | | | | | +--------+ + + + + | 01/07/ | Appointment | Infusion Therapy | Yancy Clifford MD | | | 2019 | | | [address] | | | | | | [place] | | | | | | [address] | | | | | | | | +--------+ + + + + documented as of this encounter Visit Diagnoses Not on filedocumented in this encounter"
--- OUTSIDE RECORDS SUMMARY | ~2019-12-08 | XMS | Encounter Summary ---
Demographics + + + | Address | [address] | | | [place] [address] | + + + | Home Phone [...] | | | | | [place] [address] | | + + + + + | Emory Larios | ECON | Unknown | | + + + + + Care Team Providers + +------+ + | Care Software Tester Name | Role | Phone | + +------+ + PCP | Unavailable | + +------+ + Encounter Details +--------+ + + + + | Date | Type | Department | Care Team | Description | +--------+ + + + + | 05/13/ | Hospital | [facility] | Jared Piña, | | | 2019 - | Encounter | [facility] | MD [address] | | | | | CARE FLO[address] | [place] [address] | | | 05/16/ | | [address] | [phone] | | | 2018 | | [place], [place] | | | | | | [address] | | | | | | [phone] | | | +--------+ + + + [...] Service: Hospitalist Author Type: Physician Filed: 05/16/19 1518 Date of Service: 05/16/19822 Status: Signed Disability Attorney: Kristine Toussaint DO (Physician) Patient: Ramila Lopez [...] arthritis, asthma, DVT, dyslipidemia. She presented t [facility]'s ED on 05/13/19 with complaints of epistaxis. At that time her labs were nota ble for platelets 13, Hb 7.6, Hct 22.3. She was transferred to [facility] as there was no transfus ion services available at that time. Upon arrival to [facility] Oncology and ENT Dr. Hinds was [...] Discharge Information: Follow up: Jonnathan Hinds MD [id number] [facility] [phone] On 05/18/2019 For nasal packing removal Per Pt None Yancy Clifford MD [address] [facility] [address] Medication List START taking these medications amoxicillin-clavulanate [...] Date of Service: 05/16/19 141 Status: Signed Disability Attorney: Burak Brooks RN (Registered Nurse) Education provided [...] Date of Service: 05/16/19 110 Status: Signed Disability Attorney: Yancy Clifford MD (Physician) [facility] [place] [facility] Service: Hematology and Oncology Progress Note Hospital [...] Jaida Shen RN Service: (none) Author Type: Branch Operations Manager Filed: 05/15/19 1539 Date of Service: 05/15/19 153 Status: Signed Disability Attorney: Jaida Shen RN (Branch Operations Manager) CM attended daily medical team rounding. Pt is from home with spouse and will return home w hen medically stable. Kristine Burns DO - 05/15/2019 11:26 AM PDT Progress Notes by Kristine Toussaint DO at 05/15/19 1126 Author: Kristine Toussaint DO Service: Hospitalist Author Type: Physician Filed: 05/15/19 1134 Date of Service: 05/15/19 1126 Status: Signed Disability Attorney: Kristine Toussaint DO (Physician) [facility] [place] [facility] Service: Hospitalist Progress Note Hospital Day: LOS: 2 days Post-Op Day: * No surgery found * SUBJECTIVE Patient Summary: Patient is a 58 yo F with PMHx of metastatic ovarian CA (last chemotherap y treatment last week; under treatment by Dr. Venessa Correa), arthritis, asthma, DVT, dyslipidemi a. She presented to [facility]'s ED on 05/13/19 with complaints of epistaxis. At that time her labs were notable for platelets 13, Hb 7.6, Hct 22.3. She was transferred to [facility] as the re was no transfusion services available at that time. Upon arrival to [facility] Oncology and ENT Dr. Hinds were [...] on Saturday if no ENT available in [place]. Juliano l transition to Augmentin for prophylaxis. [...] Advanced R egistered Nurse Practitioner Filed: 05/15/19 2962 Date of Service: 05/15/19930 Status: Signed Disability Attorney: CIERRA Joshi (Advanced Registered Nurse Practitioner) [facility] [place] [facility] Service: Hematology and Oncology Progress Note Hospital Day: LOS: 2 days Patient Summary: Ms. Ramila Lopez is a 58 year old woman who presented to ER in [place] in April 2017 second yunior to dyspnea and abdominal distention. CT of the chest, abdomen and pelvis April 04, 2017 at [facility] revealed left pleural effusion with a left ovarian mass measuring 7. 6 X 5 X 5.8 cm with omental caking and ascites. CA 125 was nearly 2000. She underwent parac entesis with removal of 3600 cc fluid and thoracentesis with removal of 700cc, with patholog y from both consistent with malignancy of ovarian primary. She was referred to [facility] and established with Dr. Nolasco. Given [...] established with Dr. Clifford after moving to [place]. In December 2018, the patient experienced rising [...] May 13, 2019, the patient presented to [facility] ER secondary to epistaxis. The gaetano ent was seen in the ER by Dr. Diop. The patient was noted to be pancytopenic with platelet s 13,000, hemoglobin 7.6, and total white cell count 25,000. ER provider requested transfer to [facility] given the lack of platelets available in their facility. The patient received 2 un its of fresh frozen plasma prior to transfer and was admitted to [facility] for further manageme nt. SUBJECTIVE: Events Overnight: [...] (none) Author Type: Registered Nurse Filed: 05/14/19 8383 Date of Service: 05/14/191708 Status: Signed Disability Attorney: Senait Lehman RN (Registered Nurse) Transfused 2 [...] 1422 Date of Service: 05/14/191420 Status: Signed Disability Attorney: Alisha De La Torre RD (Registered Dietitian) 05/14/19 1400 Subjective Timepoint Admit Pt c/o Pt triggered for screen secondary to dysphagia. Admitted d/t pancytopenia, had intra ctable nose bleed. Reported by Patient Diet Experience Self-selected diet(s) followed Reports she was eating well LIGHT CLEANER, follows no special diet. Sadler d a BLT before transferring to [facility]. Fluid / Beverage Intake Oral Fluids [...] expressed frustratio n with restrictive diet. Recommend BOW MAKING MACHINE OPERATOR evaluation to determine safest diet or liberalizing i f appropriate. Anthropometrics Weight change Admit wt: 87.5 kg. BMI of 33 considered obese. Pt reports wt has been stable , medical records confirm. Monitor wt trend. Biochemical data, medical tests, and procedures reviewed Biochemical data, medical tests, and procedures reviewed Labs reviewed. Estimated Energy Needs Total Energy Estimated Needs 2374-9752 kcal/day Method for Estimating Needs 25-30 kcal/kg per 62.78 AdjBW Estimated Protein Needs Total Protein Estimated Needs 75-94 g/day Method for Estimating Needs 1.2-1.5 g/kg Recommendations Recommended energy needs General diet with modified textures as needed. Recommend BOW MAKING MACHINE OPERATOR evalu ation to determine safest PO intake, liberalize diet as possible to promote adequate intake. Monitor and follow per protocol. Nutritional Risk Nutritional risk Moderate Follow up date 05/19/19 Lynne John John, JORDY 05/14/2019 onver yuri Teixeira, Provider Unknown - 05/14/2019 11:51 AM PDT Case Management by Jaida Shen RN at 05/14/19 1151 Author: Jaida Shen RN Service: (none) Author Type: Branch Operations Manager Filed: 05/14/19 1231 Date of Service: 05/14/19 1151 Status: Signed Disability Attorney: Jaida Shen RN (Branch Operations Manager) 05/14/19 1147 Discharge Planning Evaluation Admitting Diagnosis Pancytopenia Readmission No Living Arrangements Spouse/significant other Support Systems Spouse/significant other;Children;Family members Type of Residence Private residence House type House-1 story Independent with ADL's Yes Independent with Mobility Yes Home Care Services No Caregiver after Discharge Yes Caregiver Name Jared Lopez Relationship to Patient spouse Phone number [phone] Mental Status Oriented Prior functional status independent [...] cancer. Pt lives with her spouse in [place], [place] and has been independent with adls [...] Service: Hospitalist Author Type: Physician Filed: 05/14/19 114 Date of Service: 05/14/191129 Status: Signed Disability Attorney: Star Cedeño MD (Physician) [facility] [place] [facility] Service: Hospitalist Progress Note Hospital Day: LOS: [...] 05/14/19619 Date of Service: 05/14/19616 Status: Signed Disability Attorney: Anitha Simons RN (Registered Nurse) End of [...] 05/13/191826 Date of Service: 05/13/191826 Status: Signed Disability Attorney: Jessica Garza RPH (Pharmacist) Clinical Pharmacy Note: [...] d adjust accordingly. Jessica Garza Pharm D, [facility] 05/13/2019 6:26 PM onver yuri Transaction, Provider Unknown - 05/13/2019 6:00 PM PDT Progress Notes by Jessica Garza RPH at 05/13/19 1800 Author: Jessica Garza RPH Service: Pharmacy Author Type: Pharmacist Filed: 05/13/191799 Date of Service: 05/13/19 1800 Status: Signed Disability Attorney: Jessica Garza RPH (Pharmacist) Clinical Pharmacy Note: [...] appropriate dosing per renal function. Jessica Garza [facility] 5:59 PM 05/13/2019 Pharmacist onver yuri Teixeira, Provider Unknown - 05/13/2019 4:53 PM PDT Nurse Progress Note by Jillian Cruz RN at 05/13/191652 Author: Jillian Cruz RN Service: (none) Author Type: Registered Nurse Filed: 05/13/191815 Date of Service: 05/13/191652 Status: Addendum Disability Attorney: Jillian Cruz RN (Registered Nurse) Related Notes: Original Note by Jillian Cruz RN (Registered Nurse) filed at 05/13/19 16 55 End of Shift Note: Pt admitted to floor resting comfortably in bed. [place] in place, but pt reports that nose is still oozing down throat. LIGHT CLEANER med list reviewed and complete. Pt states [...] [place] | | | | | | [address] | | | | | | | | +--------+ + + + + | 12/17/ | Office | Oncology | Yancy Clifford MD | | | 2019 | Visit | | [address] | | | | | | [place] | | | | | | [address] | | | | | | | | +--------+ + + + + | 12/17/ | Appointment | Infusion Therapy | Yancy Clifford MD | | | 2019 | | | [address] | | | | | | [place] | | | | | | [address] | | | | | | | | +--------+ + + + + | 01/07/ | Appointment | Infusion Therapy | Yancy Clifford MD | | | 2019 | | | [address] | | | | | | [place] | | | | | | [address] | | | | | | | | +--------+ + + + + | 01/07/ | Office | Oncology | Yancy Clifford MD | | | 2019 | Visit | | [address] | | | | | | [place] | | | | | | [address] | | | | | | | | +--------+ + + + + | 01/07/ | Appointment | Infusion Therapy | Yancy Clifford MD | | | 2019 | | | [address] | | | | | | [place] | | | | | | [address] | | | | | | | [...] | | | | | | at [facility], [address] | | | | | | [facility], | | | | | | [place] [address] | | | | | |Testing performed at [facility], [address] [place] [address] | | | | | | | [...] | | | | | performed at [facility], [address] | | | | | | [facility], | | | | | | [place] [address] | | | | + + + [...] LAB | | | | performed at [facility], [address] | | | | | | [address], | | | | | | [place] [address] | | | | | | [...] | | | | performed at [facility];[address] | | [address];[place] | | | | | | [address] | | | | + + + [...] LAB | | | | T[place], [address] [facility] | | | | | | [place] | | | | | | [address] | | | | + + + [...] | | | | | [place] [address] | | | | + + + [...] EXTERNAL | | | | performed at [facility], [address] | | LAB | | | | [address], | | | | | | [place] [address] | | | | + + + [...] [address], | | | | | | [place] [address] | | | | + + + [...] - 1.030 | EXTERNAL | | | [place] | | | LAB | | + [...] EXTERNAL | | | | performed at [facility] | | LAB | | | | [address];[place], [place] | | | | | | [address] | | | | + + + [...] + + | Historically converted procedure from [facility] environment | EXTERNAL LAB | + [...] | | | Patient | performed at [facility];[address] | | LAB | | | | [address];[place], [place] | | | | | | [address] | | | | + + + [...] | | | | performed at [facility];[address] | | | | | | [address];[place], [place] | | | | | | [address] | | | | + + + [...] | | | Plasma | 6RP [id number] [facility] | | | | | |KEISHA Stephenson RN 6RP [address]43 [id number] [facility] | | | | | | | [...] | | | | performed at [facility];[address] | | | | | | [facility];[place], [place] | | | | | | [address] | | | | | |Testing performed at [facility];[address] [place] [address];[place] [address] | | | | | [...] EXTERNAL | | | | performed at [facility] | | LAB | | | | [address];[place] | | | | | | [address] | | | | + + + [...] EXTERNAL | | | | performed at [facility];[address] | | LAB | | | | [address];[place], [place] | | | | | | [address] | | | | + + + [...] | | | | performed at [facility];[address] | | | | | | [facility];[place], [place] | | | | | | [address] | | | | + + + [...]
--- OUTSIDE RECORDS SUMMARY | ~2019-12-08 | XMS | Clinical Summary ---
Demographics + + + | Address | [address] | | | [place] [address] | + + + | Home Phone | | + + + | Preferred Language | Unknown | + + + | Marital Status | Legally | + + + | Congregational Affiliation | Unknown | + + + | Race | Unknown | + + + | Ethnic Group | Unknown | + + + Author + + + | Author | [facility] (Historical as of | | | 07-18-19) | + + + | Organization | [facility] (Historical as of | | | 07-18-19) [...] | | | | [place] [address] | | + + + + + | Emory Larios | EBENEZER | Unknown | | + + + + + Care Team Providers + +------+ + | Care Welt Sewer Name | Role | Phone | + [...] +------+-------+ + | MEDICARE | MEDICA | [id number] | | | [address] | | | RE | | | | [place] [address] | | | IP-OP | | | | | + +--------+ +------+-------+ + | MEDICAID | MEDICA | [id number] | | | [address] | | | ID | | | | [place] | | | [place] | | | | [address] | + +--------+ +------+-------+ + + +--------+ +--------+ + + | Guarantor Name | Accoun | Relation to | Date | Phone | Billing Address | | | t Type | Patient | of | | | | | | | | | | + +--------+ +--------+ + + | ELSY BAXTER | Person | Self [birth year] | Home: | [address] | | | al/Fam | | [phone] | [phone] [address] [place], | | | ever | | | [phone] | [place] [address] | + +--------+ +--------+ + +
--- OUTSIDE RECORDS SUMMARY | ~2019-12-08 | XMS | Encounter Summary ---
Demographics + + + | Address | [address] | | | [place] [address] | + + + | Home Phone | | + + + | Preferred Language | Unknown | + + + | Marital Status | | + + + | Uatsdin Affiliation | Unknown | + + + | Race | Unknown | + + + | Ethnic Group | Unknown | + + + Author + + + | Author | [facility] | | | and [place] | + + + | Organization | [facility] | | [...] | | | | [place] [address] | | + + + + + | Emory Larios | ECON | Unknown | | + + + + + Care Team Providers + +------+ + | Care Structural Layout Worker Name | Role | Phone | [...] | | ECHO | [address] | [place], [place] | | | | | Complete | [place] | [address] | | | | | | [address] | Phone: | | | | | | Phone: | [phone] | | | | | | [phone] | Fax: | | | | | | Fax: | [phone] | | | | | | [phone] | | +--------+--------+ + + + + Encounter Details +--------+ + + + + | Date | Type | Department | Care Team | Description | +--------+ + + + + | 08/04/ | Orders Only | [facility] | Scott Boswell MD | Pulmonary HTN (HCC) | | 2019 | | PULMONOLOGY [address] | [address] | (Primary Dx) | | | | [address] | [place], [place] | | | | | [place], [place] | [address] | | | | | [address] | | | | | | [phone] | | | +--------+ + + + [...] [place] | | | | | | [address] | | | | | | | | +--------+ + + + + | 01/07/ | Appointment | Infusion Therapy | Yancy Clifford MD | | | 2019 | | | [address] | | | | | | [place] | | | | | | [address] | | | | | | | | +--------+ + + + + | 01/07/ | Office | Oncology | Yancy Clifford MD | | | 2019 | Visit | | [address] | | | | | | [place] | | | | | | [address] | | | | | | | | +--------+ + + + + | 01/07/ | Appointment | Infusion Therapy | Yancy Clifford MD | | | 2019 | | | [address] | | | | | | [place] | | | | | | [address] | | | | | | | | +--------+ + + + + + + +--------+ + + | Name | Type | Priori | Associated Diagnoses | Order Schedule | | | | ty | | | + + +--------+ + + | ECHO Complete | Echocardiog | Routin | Pulmonary HTN | Expected: | | | ippo | e | ([facility]) | 08/04/2019, Expires: | | | | | | 08/04/2020 | + + +--------+ + + documented as of this encounter Visit Diagnoses + + | Diagnosis | + + | Pulmonary HTN (HCC) - Primary Other chronic pulmonary heart diseases | + + documented in this encounter"
--- OUTSIDE RECORDS SUMMARY | ~2019-12-08 | XMS | Encounter Summary ---
Demographics + + + | Address | [address] | | | [place] [address] | + + + | Home Phone | | + + + | Preferred Language | Unknown | + + + | Marital Status | | + + + | Sabianism Affiliation | Unknown | + + + | Race | Unknown | + + + | Ethnic Group | Unknown | + + + Author + + + | Author | [facility] | | | and [place] | + + + | Organization | [facility] | | | [...] | | | | [place] [address] | | + + + + + | Emory Larios | ECON | Unknown | | + + + + + Care Team Providers + +------+ + | Care Barrel Washer Name | Role | Phone | + +------+ + | Shannan Deng | PCP | | + +------+ + Encounter Details +--------+ + + + + | Date | Type | Department | Care Team | Description | +--------+ + + + + | 09/03/ | Hospital | [facility] | Yancy Clifford MD | 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) | | | | SERVICES [address] | [place] | (Primary Dx) | | | | [address] [place] | [address] | | | | | [address] [place] | | | | | | [address] | | | | | | [phone] | | | +--------+ + + + [...] | | | 2019 | | | [address] | | | | | | [place] | | | | | | [address] | | | | | | | | +--------+ + + + + | 12/17/ | Office | Oncology | Yancy Clifford MD | | | 2019 | Visit | | [address] | | | | | | [place] | | | | | | [address] | | | | | | | | +--------+ + + + + | 12/17/ | Appointment | Infusion Therapy | Yancy Clifford MD | | | 2019 | | | [address] | | | | | | [place] | | | | | | [address] | | | | | | | | +--------+ + + + + | 01/07/ | Appointment | Infusion Therapy | Yancy Clifford MD | | | 2019 | | | [address] | | | | | | [place] | | | | | | [address] | | | | | | | | +--------+ + + + + | 01/07/ | Office | Oncology | Yancy Clifford MD | | | 2019 | Visit | | [address] | | | | | | [place] | | | | | | [address] | | | | | | | | +--------+ + + + + | 01/07/ | Appointment | Infusion Therapy | Yancy Clifford MD | | | 2019 | | | [address] | | | | | | [place] | | | | | | [address] | | | | | | | [...] LAB | | | | Performed at [facility], [address] | | [facility] | | | | [address] | | LABORATORY | | | | [address], [place] | | | | | | [address] | | | | + + + + + + + + | Specimen | + + | | + + + + + + + | Performing | Address | City/State/Zipcode | Phone Number | | Organization | | | | + + + + + | REFERENCE LAB | [address] [place] [address] | [place] [address] | [phone] | | [facility] | Blvd. | | | | LABORATORY | | | | + + + + + | REFERENCE LAB | [address] [place] [address] | [place] [address] | | | [facility] | Blvd. | [...] LAB | | | | performed at [facility];[address] | | [facility] | | | | [place] | | LABORATORY | | | | Blvd;[place] [address] | | | | | | | | | | + + + + + + + + | Specimen | + + | | + + + + + + + | Performing | Address | City/State/Zipcode | Phone Number | | Organization | | | | + + + + + | REFERENCE LAB | [address] [facility] | [place] [address] | [phone] | | [facility] | Blvd. | | | | LABORATORY | | | | + + + + + | REFERENCE LAB | [address] [facility] | [place] [address] | | | [facility] | Blvd. | [...] | | | urine | performed at [facility];[address] | | [facility] | | | | [place] | | LABORATORY | | | | Blvd;[place] [address] | | | | | | | | | | + + + + + + + + | Specimen | + + | | + + + + + + + | Performing | Address | City/State/Zipcode | Phone Number | | Organization | | | | + + + + + | REFERENCE LAB | [address] [facility] | [place] [address] | [phone] | | [facility] | Blvd. | | | | LABORATORY | | | | + + + + + | REFERENCE LAB | [address] [facility] | [place] [address] | | | [facility] | Blvd. | [...] - 1.030 | REFERENCE | | | [place], | | | LAB | | | [...] REFERENCE | | | | Performed at [facility], [address] | | LAB | | | | [address] | | [facility] | | | | [address], [place] | | LABORATORY | | | | [address] | | | | + + + + + + + + | Specimen | + + | | + + + + + + + | Performing | Address | City/State/Zipcode | Phone Number | | Organization | | | | + + + + + | REFERENCE LAB | [address] [place] [address] | [place] [address] | [phone] | | [facility] | Blvd. | | | | LABORATORY | | | | + + + + + | REFERENCE LAB | [address] [place] [address] | [place] [address] | | | [facility] | Blvd. | [...] | | | RATIO,URINE | performed at [facility];[address] | | LAB | | | | [place] | | [facility] | | | | Blvd;[place] [address] | | LABORATORY | | + + + + + + + + | Specimen | + + | | + + + + + + + | Performing | Address | City/State/Zipcode | Phone Number | | Organization | | | | + + + + + | REFERENCE LAB | [address] [facility] | [place] [address] | [phone] | | [facility] | Blvd. | | | | LABORATORY | | | | + + + + + | REFERENCE LAB | [address] | [place] [address] | | | [facility] | Blvd. | [...] [place] | | | | | | [address] | | | | + + + + + + + + | Specimen | + + | Blood | + + + + + + + | Performing | Address | City/State/Zipcode | Phone Number | | Organization | | | | + + + + + | REFERENCE LAB | [address] | [place] [address] | [phone] | | [facility] | Blvd. | | | | LABORATORY | | | | + + + + + | REFERENCE LAB | [address] [facility] | [place] [address] | | | [facility] | Blvd. | [...] | | LAB | | | | [address] | | [facility] | | | | [address], [place] | | LABORATORY | | | | [address] | | | | + + + + + + + + | Specimen | + + | Blood | + + + + + + + | Performing | Address | City/State/Zipcode | Phone Number | | Organization | | | | + + + + + | REFERENCE LAB | [address] | [place] [address] | [phone] | | [facility] | Blvd. | | | | LABORATORY | | | | + + + + + | REFERENCE LAB | [address] | [place] [address] | | | [facility] | Blvd. | [...]
--- OUTSIDE RECORDS SUMMARY | ~2019-12-08 | XMS | Encounter Summary ---
Demographics + + + | Address | [address] | | | [place] [address] | + + + | Home Phone [...] | | | | [place] [address] | | + + + + + | Emory Larios | ECON | Unknown | | + + + + + Care Team Providers + +------+ + | Care Shipping Inspector Name | Role | Phone | [...] Provider Unknown | | | | | [place], [place] | [phone] | | | | | [address] | | | | | | [phone] | | | +--------+ + + + [...] [place] | | | | | | [address] | | | | | | | | +--------+ + + + + | 12/17/ | Office | Oncology | Yancy Clifford MD | | | 2019 | Visit | | [address] | | | | | | [place] | | | | | | [address] | | | | | | | | +--------+ + + + + | 12/17/ | Appointment | Infusion Therapy | Yancy Clifford MD | | | 2019 | | | [address] | | | | | | [place] | | | | | | [address] | | | | | | | | +--------+ + + + + | 01/07/ | Appointment | Infusion Therapy | Yancy Clifford MD | | | 2019 | | | [address] | | | | | | [place] | | | | | | [address] | | | | | | | | +--------+ + + + + | 01/07/ | Office | Oncology | Yancy Clifford MD | | | 2019 | Visit | | [address] | | | | | | [place] | | | | | | [address] | | | | | | | | +--------+ + + + + | 01/07/ | Appointment | Infusion Therapy | Yancy Clifford MD | | | 2019 | | | [address] | | | | | | [place] | | | | | | [address] | | | | | | | | +--------+ + + + + documented as of this encounter Visit Diagnoses Not on filedocumented in this encounter"
--- OUTSIDE RECORDS SUMMARY | ~2019-12-08 | XMS | Encounter Summary ---
Demographics + + + | Address | [address] | | | [place] [address] | + + + | Home Phone [...] | | | | [place] [address] | | + + + + + | Emory Larios | ECON | Unknown | | + + + + + Care Team Providers + +------+ + | Care Surgical Tech Name | Role | Phone | [...] + + | 08/19/ | Telephone | [facility] | Yuli Serna | Triage | | 2019 | | SUPPORT SERVICES | Brittany, RADIATION MONITOR [address] | | | | | [address] | [address] | | | | | [address] | [place] [address] | | | | | [place], [place] | [phone] | | | | | [address] | | | | | | [phone] | | | +--------+ + + + [...] [place] | | | | | | [address] | | | | | | | | +--------+ + + + + | 12/17/ | Office | Oncology | Yancy Clifford MD | | | 2019 | Visit | | [address] | | | | | | [place] | | | | | | [address] | | | | | | | | +--------+ + + + + | 12/17/ | Appointment | Infusion Therapy | Yancy Clifford MD | | | 2019 | | | [address] | | | | | | [place] | | | | | | [address] | | | | | | | | +--------+ + + + + | 01/07/ | Appointment | Infusion Therapy | Yancy Clifford MD | | | 2019 | | | [address] | | | | | | [place] | | | | | | [address] | | | | | | | | +--------+ + + + + | 01/07/ | Office | Oncology | Yancy Clifford MD | | | 2019 | Visit | | [address] | | | | | | [place] | | | | | | [address] | | | | | | | | +--------+ + + + + | 01/07/ | Appointment | Infusion Therapy | Yancy Clifford MD | | | 2019 | | | [address] | | | | | | [place] | | | | | | [address] | | | | | | | | +--------+ + + + + documented as of this encounter Visit Diagnoses Not on filedocumented in this encounter"
--- OUTSIDE RECORDS SUMMARY | ~2019-12-08 | XMS | Encounter Summary ---
Demographics + + + | Address | [address] | | | [place] [address] | + + + | Home Phone [...] | | | | [place] [address] | | + + + + + | Emory Larios | ECON | Unknown | | + + + + + Care Team Providers + +------+ + | Care Medical Sales Consultant Name | Role | Phone | [...] | | | 2018 | | [address] [facility] | [address] | | | | | [facility] | [place] | | | | | [address] | [id number] | | | | | [phone] | | | +--------+ + + + [...] [place] | | | | | | [address] | | | | | | | | +--------+ + + + + | 12/17/ | Office | Oncology | Yancy Clifford MD | | | 2019 | Visit | | [address] | | | | | | [place] | | | | | | [address] | | | | | | | | +--------+ + + + + | 12/17/ | Appointment | Infusion Therapy | Yancy Clifford MD | | | 2019 | | | [address] | | | | | | [place] | | | | | | [address] | | | | | | | | +--------+ + + + + | 01/07/ | Appointment | Infusion Therapy | Yancy Clifford MD | | | 2019 | | | [address] | | | | | | [place] | | | | | | [address] | | | | | | | | +--------+ + + + + | 01/07/ | Office | Oncology | Yancy Clifford MD | | | 2019 | Visit | | [address] | | | | | | [place] | | | | | | [address] | | | | | | | | +--------+ + + + + | 01/07/ | Appointment | Infusion Therapy | Yancy Clifford MD | | | 2019 | | | [address] | | | | | | [place] | | | | | | [address] | | | | | | | [...] | | | | using the MDRD IDCO | | | | | | traceable [...]
--- OUTSIDE RECORDS SUMMARY | ~2019-12-08 | XMS | Encounter Summary ---
Demographics + + + | Address | [address] | | | [place] [address] | + + + | Home Phone | | + + + | Preferred Language | Unknown | + + + | Marital Status | | + + + | Episcopalian Affiliation | Unknown | + + + | Race | Unknown | + + + | Ethnic Group | Unknown | + + + Author + + + | Author | [facility] | | | and [place] | + + + | Organization | [facility] | | | [...] | | | | [place] [address] | | + + + + + | Emory Larios | ECON | Unknown | | + + + + + Care Team Providers + +------+ + | Care Artist Scientific Name | Role | Phone | + +------+ + | Shannan Deng | PCP | | + +------+ + Encounter Details +--------+ + + + + | Date | Type | Department | Care Team | Description | +--------+ + + + + | 07/23/ | Hospital | [facility] | Yancy Clifford MD | 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) | | | | SERVICES [address] | [place] | | | | | [address] [place] | [id number] | | | | | [address] [place] | | | | | | [address] | Donya Mckeon, | | | | | [phone] | RN | | +--------+ + + [...] [place] | | | | | | [address] | | | | | | | | +--------+ + + + + | 12/17/ | Office | Oncology | Yancy Clifford MD | | 2019 | Visit | | [address] | | | | | | [place] | | | | | | [address] | | | | | | | | +--------+ + + + + | 12/17/ | Appointment | Infusion Therapy | Yancy Clifford MD | | | 2019 | | | [address] | | | | | | [place] | | | | | | [address] | | | | | | | | +--------+ + + + + | 01/07/ | Appointment | Infusion Therapy | Yancy Clifford MD | | | 2019 | | | [address] | | | | | | [place] | | | | | | [address] | | | | | | | | +--------+ + + + + | 01/07/ | Office | Oncology | Yancy Clifford MD | | | 2019 | Visit | | [address] | | | | | | [place] | | | | | | [address] | | | | | | | | +--------+ + + + + | 01/07/ | Appointment | Infusion Therapy | Yancy Clifford MD | | | 2020 | | | [address] | | | | | | [place] | | | | | | [address] | | | | | | | | +--------+ + + + + documented as of this encounter Visit Diagnoses + + | Diagnosis | + + | Malignant neoplasm of left ovary (HCC) Malignant neoplasm of ovary | + + documented in this encounter"
--- OUTSIDE RECORDS SUMMARY | ~2019-12-08 | XMS | Encounter Summary ---
Demographics + + + | Address | [address] | | | [place] [address] | + + + | Home Phone [...] | Author | [facility] | | | and [place] | + + + | Organization | [facility] | | | and [...] | | | | [place] [address] | | + + + + + | Emory Larios | ECON | Unknown | | + + + + + Care Team Providers + +------+ + | Care Stringed Instrument Assembler Name | Role | Phone | + +------+ + | Shannan Deng | PCP | | + +------+ + Encounter Details +--------+ + + + + | Date | Type | Department | Care Team | Description | +--------+ + + + + | 07/05/ | Orders Only | [facility] | Lizzette Yumiko, | | | 2019 | | HEMATOLOGY AND | RN | | | | | ONCOLOGY [address] | | | | [address] | | | | | | [place] | | | | | | [address] | | | | | | [phone] | | | +--------+ + + + [...] [place] | | | | | | [address] | | | | | | | | +--------+ + + + + | 12/17/ | Office | Oncology | Yancy Clifford MD | | | 2019 | Visit | | [address] | | | | | | [place] | | | | | | [address] | | | | | | | | +--------+ + + + + | 12/17/ | Appointment | Infusion Therapy | Yancy Clifford MD | | | 2019 | | | [address] | | | | | | [place] | | | | | | [address] | | | | | | | | +--------+ + + + + | 01/07/ | Appointment | Infusion Therapy | Yancy Clifford MD | | | 2019 | | | [address] | | | | | | [place] | | | | | | [address] | | | | | | | | +--------+ + + + + | 01/07/ | Office | Oncology | Yancy Clifford MD | | | 2019 | Visit | | [address] | | | | | | [place] | | | | | | [address] | | | | | | | | +--------+ + + + + | 01/07/ | Appointment | Infusion Therapy | Yancy Clifford MD | | | 2019 | | | [address] | | | | | | [place] | | | | | | [address] | | | | | | | | +--------+ + + + + documented as of this encounter Visit Diagnoses Not on filedocumented in this encounter"
--- OUTSIDE RECORDS SUMMARY | ~2019-12-08 | XMS | Encounter Summary ---
Demographics + + + | Address | [address] | | | [place] [address] | + + + | Home Phone [...] | | | | | [place] [address] | | + + + + + | Emory Larios | ECON | Unknown | | + + + + + Care Team Providers + +------+ + | Care Boiler Plant Operator Name | Role | Phone | + +------+ + PCP | Unavailable | + +------+ + Encounter Details +--------+ + + + + | Date | Type | Department | Care Team | Description | +--------+ + + + + | 06/11/ | Orders Only | [facility] | Yancy Clifford MD | | | 2018 | | INFUSION SUPPORT | [address] | | | | | SERVICES [address] | [place], [place] | | | | | [address] [place] | [address] | | | | | [address] [place] | | | | | | [address] | | | | | | [phone] | | | +--------+ + + + [...] Notes by Sushma Mcfarlane RN at 06/11/19 4091 Author: Sushma Mcfarlane RN Service: (none) Author Type: Registered Nurse Filed: 06/11/19 1337 Encounter Date: 06/11/2019 Status: Signed Business Intern: Sushma Mcfarlane RN (Registered Nurse) Port accessed [...] 2019 | Visit | | [address] | | | | | | [place] | | | | | | [address] | | | | | | | | +--------+ + + + + | 12/17/ | Appointment | Infusion Therapy | Yancy Clifford MD | | | 2019 | | | [address] | | | | | | [place] | | | | | | [address] | | | | | | | | +--------+ + + + + | 01/07/ | Appointment | Infusion Therapy | Yancy Clifford MD | | | 2019 | | | [address] | | | | | | [place] | | | | | | [address] | | | | | | | | +--------+ + + + + | 01/07/ | Office | Oncology | Yancy Clifford MD | | | 2019 | Visit | | [address] | | | | | | [place] | | | | | | [address] | | | | | | | | +--------+ + + + + | 01/07/ | Appointment | Infusion Therapy | Yancy Clifford MD | | | 2019 | | | [address] | | | | | | [place] | | | | | | [address] | | | | | | | [...] - 1.030 | EXTERNAL | | | [place] | | | LAB | | + [...]
--- OUTSIDE RECORDS SUMMARY | ~2019-12-08 | XMS | Clinical Summary ---
Demographics + + + | Address | [address] | | | [place] [address] | + + + | Home Phone | | + + + | Preferred Language | Unknown | + + + | Marital Status | Legally | + + + | Hindu Affiliation | Unknown | + + + | Race | Unknown | + + + | Ethnic Group | Unknown | + + + Author + + + | Author | [facility] (Historical as of | | | 07-18-19) | + + + | Organization | [facility] (Historical as of | | | 07-18-19) [...] | | | | [place] [address] | | + + + + + | Emory Larios | EBENEZER | Unknown | | + + + + + Care Team Providers + +------+ + | Care Date Night Caregiver Name | Role | Phone | + [...] +------+-------+ + | MEDICARE | MEDICA | [id number] | | | [address] | | | RE | | | | [place] [address] | | | IP-OP | | | | | + +--------+ +------+-------+ + | MEDICAID | MEDICA | [id number] | | | [address] | | | ID | | | | [place] | | | [place] | | | | [phone] | + +--------+ +------+-------+ + + +--------+ +--------+ + + | Guarantor Name | Accoun | Relation to | Date | Phone | Billing Address | | | t Type | Patient | of | | | | | | | | | | + +--------+ +--------+ + + | ELSY BAXTER | Person | Self [birth year] | Home: | [address] | | | al/Fam | | 1959 | [phone] [address], | | | ever | | | [phone] | [place] [address] | + +--------+ +--------+ + +
--- OUTSIDE RECORDS SUMMARY | ~2019-12-08 | XMS | Encounter Summary ---
Demographics + + + | Address | [address] [address] | | | [place] [address] | + + + | Home Phone [...] | | | | [place] [address] | | + + + + + | Emory Larios | ECON | Unknown | | + + + + + Care Team Providers + +------+ + | Care Ophthalmologist Retina Specialist Name | Role | Phone | [...] | | | [address] [place] | [phone] | | | | | [address] [place] | | | | | | [address] | Anitha Mills | | | | | [phone] | Yulia, RN | | +--------+ + [...] [place] | | | | | | [address] | | | | | | | | +--------+ + + + + | 12/17/ | Office | Oncology | Yancy Clifford MD | | | 2019 | Visit | | [address] | | | | | | [place] | | | | | | [address] | | | | | | | | +--------+ + + + + | 12/17/ | Appointment | Infusion Therapy | Yancy Clifford MD | | | 2019 | | | [address] | | | | | | [place] | | | | | | [address] | | | | | | | | +--------+ + + + + | 01/07/ | Appointment | Infusion Therapy | Yancy Clifford MD | | | 2019 | | | [address] | | | | | | [place] | | | | | | [address] | | | | | | | | +--------+ + + + + | 01/07/ | Office | Oncology | Yancy Clifford MD | | | 2019 | Visit | | [address] | | | | | | [place] | | | | | | [address] | | | | | | | | +--------+ + + + + | 01/07/ | Appointment | Infusion Therapy | Yancy Clifford MD | | | 2019 | | | [address] | | | | | | [place] | | | | | | [address] | | | | | | | [...] | | | Estimate | Performed at [facility], [address] | | LAB | | | | [address] | | [facility] | | | | [address], [place] | | LABORATORY | | | | [address] | | | | + + + + + + + + | Specimen | + + | Blood | + + + + + + + | Performing | Address | City/State/Zipcode | Phone Number | | Organization | | | | + + + + + | REFERENCE LAB | [address] [facility] | [place] [address] | [phone] | | [facility] | Blvd. | | | | LABORATORY | | | | + + + + + | REFERENCE LAB | [address] [facility] | [place] [address] | | | [facility] | Blvd. | [...] [facility] | | | | Blvd;[place] [address] | | LABORATORY | | + + + + + + | K | 4.3Comment: Testing | 3.5 - 4.9 | REFERENCE | | | | performed at [facility];[address] | mmol/L | LAB | | | | [place] | | [facility] | | | | Blvd;[place] [address] | | LABORATORY | | + + + + + + | Cl | 106Comment: Testing | 99 - 109 mmol/L | REFERENCE | | | | performed at [facility];[address] | | LAB | | | | [place] | | [facility] | | | | Blvd;[place] [address] | | LABORATORY | | + + + + + + | CO2 | 27Comment: Testing | 23 - 32 mmol/L | REFERENCE | | | | Performed at [facility], [address] | | LAB | | | | [address] | | [facility] | | | | [address], [place] | | LABORATORY | | | | [address] | | | | + + + + + + | Anion Gap | 9Comment: Testing | 5 - 20 mmol/L | REFERENCE | | | | performed at [facility];[address] | | LAB | | | | [place] | | [facility] | | | | Blvd;[place] [address] | | LABORATORY | | + + [...] [place] | | | | | | [address] | | | | + + + + + + + + | Specimen | + + | Blood | + + + + + + + | Performing | Address | City/State/Zipcode | Phone Number | | Organization | | | | + + + + + | REFERENCE LAB | [address] [facility] | [place] [address] | [phone] | | [facility] | Blvd. | | | | LABORATORY | | | | + + + + + | REFERENCE LAB | [address] | [place] [address] | | | [facility] | Blvd. | [...]
--- OUTSIDE RECORDS SUMMARY | ~2019-12-08 | XMS | Encounter Summary ---
Demographics + + + | Address | [address] | | | [place] [address] | + + + | Home Phone [...] | | | | [place] [address] | | + + + + + | Emory Larios | ECON | Unknown | | + + + + + Care Team Providers + +------+ + | Care Planning Division Superintendent Name | Role | Phone | [...] + + | 11/23/ | Telephone | [facility] | Zonia Rivas RN | Triage | | 2019 | | HEMATOLOGY AND | | | | | | ONCOLOGY INFUSIONS | | | | | | [address] | | | | | | [place] | | | | | | [address] | | | | | | [phone] | | | +--------+ + + + [...] [place] | | | | | | [address] | | | | | | | | +--------+ + + + + | 12/17/ | Office | Oncology | Yancy Clifford MD | | | 2019 | Visit | | [address] | | | | | | [place] | | | | | | [address] | | | | | | | | +--------+ + + + + | 12/17/ | Appointment | Infusion Therapy | Yancy Clifford MD | | | 2019 | | | [address] | | | | | | [place] | | | | | | [address] | | | | | | | | +--------+ + + + + | 01/07/ | Appointment | Infusion Therapy | Yancy Clifford MD | | | 2019 | | | [address] | | | | | | [place] | | | | | | [address] | | | | | | | | +--------+ + + + + | 01/07/ | Office | Oncology | Yancy Clifford MD | | | 2019 | Visit | | [address] | | | | | | [place] | | | | | | [address] | | | | | | | | +--------+ + + + + | 01/07/ | Appointment | Infusion Therapy | Yancy Clifford MD | | | 2019 | | | [address] | | | | | | [place] | | | | | | [address] | | | | | | | | +--------+ + + + + documented as of this encounter Visit Diagnoses Not on filedocumented in this encounter"
--- OUTSIDE RECORDS SUMMARY | ~2019-12-08 | XMS | Encounter Summary ---
Demographics + + + | Address | [address] [address] [address] [address] | | | [place] [address] | + + + | Home Phone [...] | | | | [place] [address] | | + + + + + | Emory Larios | ECON | Unknown | | + + + + + Care Team Providers + +------+ + | Care Internal Control Consultant Name | Role | Phone | + +------+ + | Shannan Deng | PCP | | + +------+ + Encounter Details +--------+ + + + + | Date | Type | Department | Care Team | Description | +--------+ + + + + | 07/23/ | Hospital | [facility] | Yancy Clifford MD | 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) | | | | SERVICES [address] | [place] | | | | | [address] [place] | [id number] | | | | | [address] [place] | | | | | | [address] | Donya Mckeon, | | | | | [phone] | RN | | +--------+ + + [...] [place] | | | | | | [address] | | | | | | | | +--------+ + + + + | 12/17/ | Office | Oncology | Yancy Clifford MD | | 2019 | Visit | | [address] | | | | | | [place] | | | | | | [address] | | | | | | | | +--------+ + + + + | 12/17/ | Appointment | Infusion Therapy | Yancy Clifford MD | | | 2019 | | | [address] | | | | | | [place] | | | | | | [address] | | | | | | | | +--------+ + + + + | 01/07/ | Appointment | Infusion Therapy | Yancy Clifford MD | | | 2019 | | | [address] | | | | | | [place] | | | | | | [address] | | | | | | | | +--------+ + + + + | 01/07/ | Office | Oncology | Yancy Clifford MD | | | 2019 | Visit | | [address] | | | | | | [place] | | | | | | [address] | | | | | | | | +--------+ + + + + | 01/07/ | Appointment | Infusion Therapy | Yancy Clifford MD | | | 2020 | | | [address] | | | | | | [place] | | | | | | [address] | | | | | | | | +--------+ + + + + documented as of this encounter Visit Diagnoses + + | Diagnosis | + + | Malignant neoplasm of left ovary (HCC) Malignant neoplasm of ovary | + + documented in this encounter"
--- OUTSIDE RECORDS SUMMARY | ~2019-12-08 | XMS | Encounter Summary ---
Demographics + + + | Address | [address] [address] | | | [place] [address] | + + + | Home Phone [...] | | | | [place] [address] | | + + + + + | Emory Larios | ECON | Unknown | | + + + + + Care Team Providers + +------+ + | Care Assembler Sandal Parts Name | Role | Phone | + +------+ + | Shannan Deng | PCP | | + +------+ + Encounter Details +--------+ + + + + | Date | Type | Department | Care Team | Description | +--------+ + + + + | 07/23/ | Orders Only | [facility] | CrockerYumiko pichardo, | Malignant neoplasm | | 2019 | | HEMATOLOGY AND | RN | of left ovary (HCC) | | | | ONCOLOGY [address] | | (Primary Dx) | | | [address] | | | | | | [place] | | | | | | [address] | | | | | | [phone] | | | +--------+ + + + [...] [place] | | | | | | [address] | | | | | | | | +--------+ + + + + | 12/17/ | Office | Oncology | Yancy Clifford MD | | | 2019 | Visit | | [address] | | | | | | [place] | | | | | | [address] | | | | | | | | +--------+ + + + + | 12/17/ | Appointment | Infusion Therapy | Yancy Clifford MD | | | 2019 | | | [address] | | | | | | [place] | | | | | | [address] | | | | | | | | +--------+ + + + + | 01/07/ | Appointment | Infusion Therapy | Yancy Clifford MD | | | 2019 | | | [address] | | | | | | [place] | | | | | | [address] | | | | | | | | +--------+ + + + + | 01/07/ | Office | Oncology | Yancy Clifford MD | | | 2019 | Visit | | [address] | | | | | | [place] | | | | | | [address] | | | | | | | | +--------+ + + + + | 01/07/ | Appointment | Infusion Therapy | Yancy Clifford MD | | | 2020 | | | [address] | | | | | | [place] | | | | | | [address] | | | | | | | | +--------+ + + + + documented as of this encounter Visit Diagnoses + + | Diagnosis | + + | 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
--- OUTSIDE RECORDS SUMMARY | ~2019-12-08 | XMS | Encounter Summary ---
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 | | | | [phone] | | (HCC); Pleural | | | [...] [place] | | | | | | [address] | | | | | | | | +--------+ + + + + | 12/17/ | Office | Oncology | Yancy Clifford MD | | | 2019 | Visit | | [address] | | | | | | [place] | | | | | | [address] | | | | | | | | +--------+ + + + + | 12/17/ | Appointment | Infusion Therapy | Yancy Clifford MD | | | 2019 | | | [address] | | | | | | [place] | | | | | | [address] | | | | | | | | +--------+ + + + + | 01/07/ | Appointment | Infusion Therapy | Yancy Clifford MD | | | 2019 | | | [address] | | | | | | [place] | | | | | | [address] | | | | | | | | +--------+ + + + + | 01/07/ | Office | Oncology | Yancy Clifford MD | | | 2019 | Visit | | [address] | | | | | | [place] | | | | | | [address] | | | | | | | | +--------+ + + + + | 01/07/ | Appointment | Infusion Therapy | Yancy Clifford MD | | | 2020 | | | [address] | | | | | | [place] | | | | | | [address] | | | | | | | [...] | | | | | TC;[address] [facility] | | | | | | [facility];[place] [address] | | | | | | | | | | + + + + + + + + | Specimen | + + | Blood | + + + + + + + | Performing | Address | City/State/Zipcode | Phone Number | | Organization | | | | + + + + + | REFERENCE LAB | [address] [facility] [address] | [place] [address] | [phone] | | [facility] | Blvd. | | | | LABORATORY | | | | + + + + + | REFERENCE LAB | [address] [facility] | [place] [address] | | | [facility] | Blvd. | [...]
--- OUTSIDE RECORDS SUMMARY | ~2019-12-08 | XMS | Encounter Summary ---
Demographics + + + | Address | [address] | | | [place] [address] | + + + | Home Phone [...] | | | | [place] [address] | | + + + + + | Emory Larios | ECON | Unknown | | + + + + + Care Team Providers + +------+ + | Care Greeting Card Maker Name | Role | Phone | + +------+ + | Shannan Deng | PCP | | + +------+ + Encounter Details +--------+ + + + + | Date | Type | Department | Care Team | Description | +--------+ + + + + | 10/15/ | Hospital | [facility] | Yancy Clifford MD | 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) | | | | SERVICES [address] | (Primary Dx); | | | | [address] [place] | [id number] | 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 Sent to [facility] for peripheral draw 19 9:06 AM PSTdocumented [...] [place] | | | | | | [address] | | | | | | | | +--------+ + + + + | 12/17/ | Office | Oncology | Yancy Clifford MD | | | 2019 | Visit | | [address] | | | | | | [place] | | | | | | [address] | | | | | | | | +--------+ + + + + | 12/17/ | Appointment | Infusion Therapy | Yancy Clifford MD | | | 2019 | | | [address] | | | | | | [place] | | | | | | [address] | | | | | | | | +--------+ + + + + | 01/07/ | Appointment | Infusion Therapy | Yancy Clifford MD | | | 2019 | | | [address] | | | | | | [place] | | | | | | [address] | | | | | | | | +--------+ + + + + | 01/07/ | Office | Oncology | Yancy Clifford MD | | | 2019 | Visit | | [address] | | | | | | [place] | | | | | | [address] | | | | | | | | +--------+ + + + + | 01/07/ | Appointment | Infusion Therapy | Yancy Clifford MD | | | 2019 | | | [address] | | | | | | [place] | | | | | | [address] | | | | | | | [...]
--- OUTSIDE RECORDS SUMMARY | ~2019-12-08 | XMS | Encounter Summary ---
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 | | | | [phone] | | (HCC); Pleural | | | [...] [place] | | | | | | [address] | | | | | | | | +--------+ + + + + | 12/17/ | Office | Oncology | Yancy Clifford MD | | | 2019 | Visit | | [address] | | | | | | [place] | | | | | | [address] | | | | | | | | +--------+ + + + + | 12/17/ | Appointment | Infusion Therapy | Yancy Clifford MD | | | 2019 | | | [address] | | | | | | [place] | | | | | | [address] | | | | | | | | +--------+ + + + + | 01/07/ | Appointment | Infusion Therapy | Yancy Clifford MD | | | 2019 | | | [address] | | | | | | [place] | | | | | | [address] | | | | | | | | +--------+ + + + + | 01/07/ | Office | Oncology | Yancy Clifford MD | | | 2019 | Visit | | [address] | | | | | | [place] | | | | | | [address] | | | | | | | | +--------+ + + + + | 01/07/ | Appointment | Infusion Therapy | Yancy Clifford MD | | | 2020 | | | [address] | | | | | | [place] | | | | | | [address] | | | | | | | [...] [place] | | | | | | [address] | | | | + + + + + + + + | Specimen | + + | | + + + + + + + | Performing | Address | City/State/Zipcode | Phone Number | | Organization | | | | + + + + + | REFERENCE LAB | [address] [facility] | [place] [address] | [phone] | | [facility] | Blvd. | | | | LABORATORY | | | | + + + + + | REFERENCE LAB | [address] [facility] | [place] [address] | | | [facility] | Blvd. | | | | LABORATORY [...] LAB | | | | performed at [facility];[address] | | [facility] | | | | [facility] | | LABORATORY | | | | Blvd;[place] [address] | | | | | | | | | | + + + + + + + + | Specimen | + + | | + + + + + + + | Performing | Address | City/State/Zipcode | Phone Number | | Organization | | | | + + + + + | REFERENCE LAB | [address] [place] [address] | [place] [address] | [phone] | | [facility] | Blvd. | | | | LABORATORY | | | | + + + + + | REFERENCE LAB | [address] [place] [address] | [place] [address] | | | [facility] | Blvd. | [...] | | | urine | performed at [facility];[address] | | [facility] | | | | [facility] | | LABORATORY | | | | Blvd;[place] [address] | | | | | | | | | | + + + + + + + + | Specimen | + + | | + + + + + + + | Performing | Address | City/State/Zipcode | Phone Number | | Organization | | | | + + + + + | REFERENCE LAB | [address] [place] [address] | [place] [address] | [phone] | | [facility] | Blvd. | | | | LABORATORY | | | | + + + + + | REFERENCE LAB | [address] [place] [address] | [place] [address] | | | [facility] | Blvd. | [...] - 1.030 | REFERENCE | | | [place], | | | LAB | | | [...] REFERENCE | | | | Performed at [facility], [address] | | LAB | | | | [address] | | [facility] | | | | [address] | | LABORATORY | | | | [address] | | | | + + + + + + + + | Specimen | + + | | + + + + + + + | Performing | Address | City/State/Zipcode | Phone Number | | Organization | | | | + + + + + | REFERENCE LAB | [address] [place] [address] | [place] [address] | [phone] | | [facility] | Blvd. | | | | LABORATORY | | | | + + + + + | REFERENCE LAB | [address] [place] [address] | [place] [address] | | | [facility] | Blvd. | [...] | | | RATIO,URINE | performed at [facility];[address] | | LAB | | | | [place] | | [facility] | | | | Blvd;[place] [address] | | LABORATORY | | + + + + + + + + | Specimen | + + | Urine | + + + + + + + | Performing | Address | City/State/Zipcode | Phone Number | | Organization | | | | + + + + + | REFERENCE LAB | [address] [place] [address] | [place] [address] | [phone] | | [facility] | Blvd. | | | | LABORATORY | | | | + + + + + | REFERENCE LAB | [address] [place] [address] | [place] [address] | | | [facility] | Blvd. | [...] LAB | | | | Performed at [facility], [address] | | [facility] | | | | [address] | | LABORATORY | | | | [address], [place] | | | | | | [address] | | | | + + + + + + + + | Specimen | + + | | + + + + + + + | Performing | Address | City/State/Zipcode | Phone Number | | Organization | | | | + + + + + | REFERENCE LAB | [address] [facility] | [place] [address] | [phone] | | [facility] | Blvd. | | | | LABORATORY | | | | + + + + + | REFERENCE LAB | [address] [facility] | [place] [address] | | | [facility] | Blvd. | [...] LAB | | | | performed at [facility];[address] | | [facility] | | | | [facility] | | LABORATORY | | | | Blvd;[place] [address] | | | | | | | | | | + + + + + + + + | Specimen | + + | | + + + + + + + | Performing | Address | City/State/Zipcode | Phone Number | | Organization | | | | + + + + + | REFERENCE LAB | [address] [facility] | [place] [address] | [phone] | | [facility] | Blvd. | | | | LABORATORY | | | | + + + + + | REFERENCE LAB | [address] [facility] | [place] [address] | | | [facility] | Blvd. | [...] | | | urine | performed at [facility];[address] | | [facility] | | | | [place] | | LABORATORY | | | | Blvd;[place] [address] | | | | | | | | | | + + + + + + + + | Specimen | + + | | + + + + + + + | Performing | Address | City/State/Zipcode | Phone Number | | Organization | | | | + + + + + | REFERENCE LAB | [address] [facility] | [place] [address] | [phone] | | [facility] | Blvd. | | | | LABORATORY | | | | + + + + + | REFERENCE LAB | [address] [facility] | [place] [address] | | | [facility] | Blvd. | [...] | | | RATIO,URINE | performed at [facility];[address] | | LAB | | | | [place] | | [facility] | | | | Blvd;[place] [address] | | LABORATORY | | + + + + + + + + | Specimen | + + | | + + + + + + + | Performing | Address | City/State/Zipcode | Phone Number | | Organization | | | | + + + + + | REFERENCE LAB | [address] [place] [address] | [place] [address] | [phone] | | [facility] | Blvd. | | | | LABORATORY | | | | + + + + + | REFERENCE LAB | [address] [place] [address] | [place] [address] | | | [facility] | Blvd. | [...] | [facility] | | | | [address], [place], [place] | | LABORATORY | | | | [address] | | | | + + + + + + + + | Specimen | + + | Blood | + + + + + + + | Performing | Address | City/State/Zipcode | Phone Number | | Organization | | | | + + + + + | REFERENCE LAB | [address] [place] [address] | [place] [address] | [phone] | | [facility] | Blvd. | | | | LABORATORY | | | | + + + + + | REFERENCE LAB | [address] [place] [address] | [place] [address] | | | [facility] | Blvd. | [...] [facility] | | | | Blvd;[place] [address] | | LABORATORY | | + + + + + + | K | 4.3Comment: Testing | 3.5 - 4.9 | REFERENCE | | | | performed at [facility];[address] | mmol/L | LAB | | | | [place] | | [facility] | | | | Blvd;[place] [address] | | LABORATORY | | + + + + + + | Cl | 105Comment: Testing | 99 - 109 mmol/L | REFERENCE | | | | performed at [facility];[address] | | LAB | | | | [place] | | [facility] | | | | Blvd;[place] [address] | | LABORATORY | | + + + + + + | CO2 | 26Comment: Testing | 23 - 32 mmol/L | REFERENCE | | | | Performed at [facility], [address] | | LAB | | | | [address] | | [facility] | | | | [address], [place] | | LABORATORY | | | | [address] | | | | + + + + + + | Anion Gap | 11Comment: Testing | 5 - 20 mmol/L | REFERENCE | | | | performed at [facility];[address] | | LAB | | | | [place] | | [facility] | | | | Blvd;[place] [address] | | LABORATORY | | + + [...] [place] | | | | | | [address] | | | | + + + + + + + + | Specimen | + + | Blood | + + + + + + + | Performing | Address | City/State/Zipcode | Phone Number | | Organization | | | | + + + + + | REFERENCE LAB | [address] [place] [address] | [place] [address] | [phone] | | [facility] | Blvd. | | | | LABORATORY | | | | + + + + + | REFERENCE LAB | [address] [place] [address] | [place] [address] | | | [facility] | Blvd. | [...] - 1.030 | REFERENCE | | | [place], | | | LAB | | | [...] | | LABORATORY | | | | [id number] | | | | + + + + + + + + | Specimen | + + | Urine | + + + + + + + | Performing | Address | City/State/Zipcode | Phone Number | | Organization | | | | + + + + + | [facility] | [address] [facility] | [place] [address] | [phone] | | [facility] | Blvd. | | | | LABORATORY | | | | + + + + + | [facility] | [address] [facility] | [place] [address] | | | [facility] | Blvd. | [...] | | | | | | TCL;[address] [facility] | | | | | | Blvd;[place] [address] | | | | | | | | | | + + + + + + + + | Specimen | + + | Blood | + + + + + + + | Performing | Address | City/State/Zipcode | Phone Number | | Organization | | | | + + + + + | [facility] | [address] [place] [address] | [place] [address] | [phone] | | [facility] | Blvd. | | | | LABORATORY | | | | + + + + + | [facility] | [address] [place] [address] | [place] [address] | | | [facility] | Blvd. | [...]
--- OUTSIDE RECORDS SUMMARY | ~2019-12-08 | XMS | Encounter Summary ---
Demographics + + + | Address | [address] [facility] | | | [place] [address] | + + + | Home Phone [...] | | | | [place] [address] | | + + + + + | Emory Larios | ECON | Unknown | | + + + + + Care Team Providers + +------+ + | Care Cotton Bag Clipper Name | Role | Phone | + [...] | | Ascites, | [place], | [place] [address] | | | | | malignant | [place] [address] | Phone: | | | | | Procedures | Phone: | [phone] | | | | | ID | [phone] | Fax: | | | | | BEVACIZUMAB | Fax: | [phone] | | | | | INJECTION, | [phone] | | | | | | 10 MG [id number] | | | | | | | - ID | | | | | | | [...] + | 10/15/ | Hospital | [facility] | Yancy Clifford MD | Malignant neoplasm | | 2019 | Encounter | HEMATOLOGY AND | [address] | of left ovary (HCC) | | | | ONCOLOGY INFUSIONS | [place] | (Primary Dx); | | | | [address] | [id number] | Ascites, malignant | | | | [address]VE [place], [place] | | | | | | [address] | Ekta Kamara RN | | | | | [phone] | | | +--------+ + + + [...] prevent mouth sores: Keep your mouth clean. [place] your teeth with a soft-bristle toothbrush after [...] baking soda to clean your mouth. M ov6klirrvctxy salt [id number] of baking soda in 1 quart of [...] begins to ooze Burning when you urinate Xbvmfhm583.4F (38C) ordwain awadas directed by your healthcare provider Date Last Reviewed: 04/01/201619994188-2107 [employer] [address] [place] [address], [place] [address]. All righ ts reserved. This information is [...] LAB DRAW in [facility] INFUSION SUPPORT SERVICES 2:15 PM: Office Visit Extended Appointment starts at 2:30 PM with Yancy Clifford MD in [facility] HEMATOLOGY AND ONCOLOGY 3:00 PM: Onc Infusion with JAZZY CHAIR [address] [facility] HEMATOLOGY AND ONCOLOGY INFUSIONS Annabella Sanchez [...] [place] | | | | | | [address] | | | | | | | | +--------+ + + + + | 12/17/ | Office | Oncology | Yancy Clifford MD | | 2019 | Visit | | [address] | | | | | | [place] | | | | | | [address] | | | | | | | | +--------+ + + + + | 12/17/ | Appointment | Infusion Therapy | Yancy Clifford MD | | | 2019 | | | [address] | | | | | | [place] | | | | | | [address] | | | | | | | | +--------+ + + + + | 01/07/ | Appointment | Infusion Therapy | Yancy Clifford MD | | | 2019 | | | [address] | | | | | | [place] | | | | | | [address] | | | | | | | | +--------+ + + + + | 01/07/ | Office | Oncology | Yancy Clifford MD | | | 2019 | Visit | | [address] | | | | | | [place] | | | | | | [address] | | | | | | | | +--------+ + + + + | 01/07/ | Appointment | Infusion Therapy | Yancy Clifford MD | | | 2020 | | | [address] | | | | | | [place] | | | | | | [address] | | | | | | | [...] | | | | | Intracatheter, ONCE, [facility] 10/15/19 | | AM PST | [...]
--- OUTSIDE RECORDS SUMMARY | ~2019-12-08 | XMS | Encounter Summary ---
Demographics + + + | Address | [address] | | | [place] [address] | + + + | Home Phone [...] + + + + + | Jared Jhon | ECON | [address] | | | | | [place] [address] | | + + + + + | Emory Larios | ECON | Unknown | | + + + + + Care Team Providers + +------+ + | Care Jewelry Maker Name | Role | Phone | + +------+ + | Shannan Deng | PCP | | + +------+ + Encounter Details +--------+ + + + + | Date | Type | Department | Care Team | Description | +--------+ + + + + | 09/03/ | Hospital | [facility] | Yancy Clifford MD | 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) | | | | SERVICES [address] | [place] | (Primary Dx) | | | | [address] [place] | [id number] | | | | | [address] [place] | | | | | | [address] | | | | | | [phone] | | | +--------+ + + + [...] | | | 2019 | | | [address] | | | | [...] [place] | | | | | | [address] | | | | | | | | +--------+ + + + + | 12/17/ | Appointment | Infusion Therapy | Yancy Clifford MD | | | 2019 | | | [address] | | | | | | [place] | | | | | | [address] | | | | | | | | +--------+ + + + + | 01/07/ | Appointment | Infusion Therapy | Yancy Clifford MD | | | 2019 | | | [address] | | | | | | [place] | | | | | | [address] | | | | | | | | +--------+ + + + + | 01/07/ | Office | Oncology | Yancy Clifford MD | | | 2019 | Visit | | [address] | | | | | | [place] | | | | | | [address] | | | | | | | | +--------+ + + + + | 01/07/ | Appointment | Infusion Therapy | Yancy Clifford MD | | | 2019 | | | [address] | | | | | | [place] | | | | | | [address] | | | | | | | [...] | | | | Performed at [facility], [address] | | [facility] | | | | [address] | | LABORATORY | | | | [address], [place] | | | | | | [address] | | | | + + + + + + + + | Specimen | + + | | + + + + + + + | Performing | Address | City/State/Zipcode | Phone Number | | Organization | | | | + + + + + | REFERENCE LAB | [address] [place] [address] | [place] [address] | [phone] | | [facility] | Blvd[address] | | | | LABORATORY | | | | + + + + + | REFERENCE LAB | [address] [place] [address] | [place] [address] | | | [facility] | Blvd[address] | [...] | | | | performed at [facility];[address] | | [facility] | | | | [place] | | LABORATORY | | | | Blvd;[place] [address] | | | | | | | | | | + + + + + + + + | Specimen | + + | | + + + + + + + | Performing | Address | City/State/Zipcode | Phone Number | | Organization | | | | + + + + + | REFERENCE LAB | [address] [facility] | [place] [address] | [phone] | | [facility] | Blvd. | | | | LABORATORY | | | | + + + + + | REFERENCE LAB | [address] [facility] | [place] [address] | | | [facility] | Blvd. | [...] | | urine | performed at [facility];[address] | | [facility] | | | | [place] | | LABORATORY | | | | Blvd;[place] [address] | | | | | | | | | | + + + + + + + + | Specimen | + + | | + + + + + + + | Performing | Address | City/State/Zipcode | Phone Number | | Organization | | | | + + + + + | REFERENCE LAB | [address] [facility] | [place] [address] | [phone] | | [facility] | Blvd. | | | | LABORATORY | | | | + + + + + | REFERENCE LAB | [address] [facility] | [place] [address] | | | [facility] | Blvd. | [...] - 1.030 | REFERENCE | | | [place], | | | LAB | | | [...] | | | | Performed at [facility], [address] | | LAB | | | | [address] | | [facility] | | | | [address], [place] | | LABORATORY | | | | [address] | | | | + + + + + + + + | Specimen | + + | | + + + + + + + | Performing | Address | City/State/Zipcode | Phone Number | | Organization | | | | + + + + + | REFERENCE LAB | [address] [place] [address] | [place] [address] | [phone] | | [facility] | Blvd. | | | | LABORATORY | | | | + + + + + | REFERENCE LAB | [address] [place] [address] | [place] [address] | | | [facility] | Blvd. | [...] | | RATIO,URINE | performed at [facility];[address] | | LAB | | | | [place] | | [facility] | | | | Blvd;[place] [address] | | LABORATORY | | + + + + + + + + | Specimen | + + | | + + + + + + + | Performing | Address | City/State/Zipcode | Phone Number | | Organization | | | | + + + + + | REFERENCE LAB | [address] [facility] | [place] [address] | [phone] | | [facility] | Blvd[address] | | | | LABORATORY | | | | + + + + + | REFERENCE LAB | [address] | [place] [address] | | | [facility] | Bl[address] | [...] [place] | | | | | | [address] | | | | + + + + + + + + | Specimen | + + | Blood | + + + + + + + | Performing | Address | City/State/Zipcode | Phone Number | | Organization | | | | + + + + + | REFERENCE LAB | [address] | [place] [address] | [phone] | | [facility] | Blvd[address] | | | | LABORATORY | | | | + + + + + | REFERENCE LAB | [address] | [place] [address] | | | [facility] | Blvd. | [...] | | LAB | | | | [address] | | [facility] | | | | [address], [place] | | LABORATORY | | | | [address] | | | | + + + + + + + + | Specimen | + + | Blood | + + + + + + + | Performing | Address | City/State/Zipcode | Phone Number | | Organization | | | | + + + + + | REFERENCE LAB | [address] | [place] [address] | [phone] | | [facility] | Blvd[address] | | | | LABORATORY | | | | + + + + + | REFERENCE LAB | [address] | [place] [address] | | | [facility] | Bl[address] | [...]
--- OUTSIDE RECORDS SUMMARY | ~2019-12-08 | XMS | Encounter Summary ---
Demographics + + + | Address | [address] | | | [place] [address] | + + + | Home Phone | | + + + | Preferred Language | Unknown | + + + | Marital Status | | + + + | Mosque Affiliation | Unknown | + + + | Race | Unknown | + + + | Ethnic Group | Unknown | + + + Author + + + | Author | [facility] | | | and [place] | + + + | Organization | [facility] | | | [...] | | | | [place] [address] | | + + + + + | Emory Larios | ECON | Unknown | | + + + + + Care Team Providers + +------+ + | Care Soil Science Technical Officer Name | Role | Phone | + +------+ + | Shannan Deng | PCP | | + +------+ + Encounter Details +--------+ + + + + | Date | Type | Department | Care Team | Description | +--------+ + + + + | 07/23/ | Orders Only | [facility] | CrockerYumiko pichardo, | Malignant neoplasm | | 2019 | | HEMATOLOGY AND | RN | of left ovary (HCC) | | | | ONCOLOGY [address] | | (Primary Dx) | [address] | [address] | | | | | | [place] | | | | | | [address] | | | | | | [phone] | | | +--------+ + + + [...] [place] | | | | | | [address] | | | | | | | | +--------+ + + + + | 12/17/ | Office | Oncology | Yancy Clifford MD | | | 2019 | Visit | | [address] | | | | | | [place] | | | | | | [address] | | | | | | | | +--------+ + + + + | 12/17/ | Appointment | Infusion Therapy | Yancy Clifford MD | | | 2019 | | | [address] | | | | | | [place] | | | | | | [address] | | | | | | | | +--------+ + + + + | 01/07/ | Appointment | Infusion Therapy | Yancy Clifford MD | | | 2019 | | | [address] | | | | | | [place] | | | | | | [address] | | | | | | | | +--------+ + + + + | 01/07/ | Office | Oncology | Yancy Clifford MD | | | 2019 | Visit | | [address] | | | | | | [place] | | | | | | [address] | | | | | | | | +--------+ + + + + | 01/07/ | Appointment | Infusion Therapy | Yancy Clifford MD | | | 2020 | | | [address] | | | | | | [place] | | | | | | [address] | | | | | | | | +--------+ + + + + documented as of this encounter Visit Diagnoses + + | Diagnosis | + + | 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
--- OUTSIDE RECORDS SUMMARY | ~2019-12-08 | XMS | Encounter Summary ---
Demographics + + + | Address | [address] [facility] [facility] [address] | | | [place] [address] | + + + | Home Phone [...] | | | | [place] [address] | | + + + + + | Emory Larios | ECON | Unknown | | + + + + + Care Team Providers + +------+ + | Care Round Kiln Drawer Name | Role | Phone | + +------+ + | Shannan Deng | PCP | | + +------+ + Encounter Details +--------+ + + + + | Date | Type | Department | Care Team | Description | +--------+ + + + + | 08/13/ | Hospital | [facility] | Yancy Clifford MD | 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) | | | | SERVICES [address] | [place] | (Primary Dx) | | | | [address] [place] | [id number] | | | | | [address] [place] | | | | | | [address] | Sushma Marquis | | | | | [phone] | Tiana RN | | +--------+ + [...] | | | 2019 | | | [address] | | | | | | [place] | | | | | | [address] | | | | | | | | +--------+ + + + + | 12/17/ | Office | Oncology | Yancy Clifford MD | | 2019 | Visit | | [address] | | | | | | [place] | | | | | | [address] | | | | | | | | +--------+ + + + + | 12/17/ | Appointment | Infusion Therapy | Yancy Clifford MD | | | 2019 | | | [address] | | | | | | [place] | | | | | | [address] | | | | | | | | +--------+ + + + + | 01/07/ | Appointment | Infusion Therapy | Yancy Clifford MD | | | 2019 | | | [address] | | | | | | [place] | | | | | | [address] | | | | | | | | +--------+ + + + + | 01/07/ | Office | Oncology | Yancy Clifford MD | | | 2019 | Visit | | [address] | | | | | | [place] | | | | | | [address] | | | | | | | | +--------+ + + + + | 01/07/ | Appointment | Infusion Therapy | Yancy Clifford MD | | | 2020 | | | [address] | | | | | | [place] | | | | | | [address] | | | | | | | [...] | | | RATIO,URINE | performed at [facility];[address] | | LAB | | | | [facility] | | [facility] | | | | [address];[place] [address] | | LABORATORY | | + + + + + + + + | Specimen | + + | Urine | + + + + + + + | Performing | Address | City/State/Zipcode | Phone Number | | Organization | | | | + + + + + | REFERENCE LAB | [address] [place] [address] | [place] [address] | [phone] | | [facility] | Blvd. | | | | LABORATORY | | | | + + + + + | REFERENCE LAB | [address] [place] [address] | [place] [address] | | | [facility] | Blvd. | [...] [facility] | | | | Blvd;[place] [address] | | LABORATORY | | + + + + + + | K | 4.3Comment: Testing | 3.5 - 4.9 | REFERENCE | | | | performed at [facility];[address] | mmol/L | LAB | | | | [place] | | [facility] | | | | [address];[place] [address] | | LABORATORY | | + + + + + + | Cl | 106Comment: Testing | 99 - 109 mmol/L | REFERENCE | | | | performed at [facility];[address] | | LAB | | | | [place] | | [facility] | | | | Bl[address];[place] [address] | | LABORATORY | | + + + + + + | CO2 | 27Comment: Testing | 23 - 32 mmol/L | REFERENCE | | | | Performed at [facility], [address] | | LAB | | | | [address] | | [facility] | | | | [address], [place] | | LABORATORY | | | | [address] | | | | + + + + + + | Anion Gap | 9Comment: Testing | 5 - 20 mmol/L | REFERENCE | | | | performed at [facility];[address] | | LAB | | | | [place] | | [facility] | | | | Bl[address];[place] [address] | | LABORATORY | | + + [...] [place] | | | | | | [address] | | | | + + + + + + + + | Specimen | + + | Blood | + + + + + + + | Performing | Address | City/State/Zipcode | Phone Number | | Organization | | | | + + + + + | REFERENCE LAB | [address] | [place] [address] | [phone] | | [facility] | Blvd. | | | | LABORATORY | | | | + + + + + | REFERENCE LAB | [address] [facility] | [place] [address] | | | [facility] | Blvd. | [...] | | LABORATORY | | | | [address] | | | | + + + + + + + + | Specimen | + + | Blood | + + + + + + + | Performing | Address | City/State/Zipcode | Phone Number | | Organization | | | | + + + + + | REFERENCE LAB | [address] [facility] | [place] [address] | [phone] | | [facility] | Blvd. | | | | LABORATORY | | | | + + + + + | REFERENCE LAB | [address] [facility] | [place] [address] | | | [facility] | Blvd. | [...] | | | | | performed at [facility];[address] | | | | | | [facility] | | | | | | [facility];[place] [address] | | | | | | | | | | + + + + + + + + | Specimen | + + | Blood | + + + + + + + | Performing | Address | City/State/Zipcode | Phone Number | | Organization | | | | + + + + + | REFERENCE LAB | [address] [place] [address] | [place] [address] | [phone] | | [facility] | Blvd. | | | | LABORATORY | | | | + + + + + | REFERENCE LAB | [address] [facility] | [place] [address] | | | [facility] | Blvd. | [...] | | LABORATORY | | | | [address] | | | | + + + + + + + + | Specimen | + + | Blood | + + + + + + + | Performing | Address | City/State/Zipcode | Phone Number | | Organization | | | | + + + + + | REFERENCE LAB | [address] [place] [address] | [place] [address] | [phone] | | [facility] | Blvd. | | | | LABORATORY | | | | + + + + + | REFERENCE LAB | [address] [place] [address] | [place] [address] | | | [facility] | Blvd. | [...] - 1.030 | REFERENCE | | | [place], | | | LAB | | | [...] REFERENCE | | | | Performed at [facility], [address] | | LAB | | | | [address] | | [facility] | | | | [address], [place] | | LABORATORY | | | | [address] | | | | + + + + + + + + | Specimen | + + | Urine | + + + + + + + | Performing | Address | City/State/Zipcode | Phone Number | | Organization | | | | + + + + + | REFERENCE LAB | [address] [place], [place] [address] | [place] [address] | [phone] | | [facility] | Blvd. | | | | LABORATORY | | | | + + + + + | REFERENCE LAB | [address] [place], [place] [address] | [place] [address] | | | [facility] | Blvd. | [...] [facility] | | | | Blvd;[place] [address] | | LABORATORY | | + + + + + + | K | 4.3Comment: Testing | 3.5 - 4.9 | REFERENCE | | | | performed at [facility];[address] | mmol/L | LAB | | | | [place] | | [facility] | | | | Blvd;[place] [address] | | LABORATORY | | + + + + + + | Cl | 105Comment: Testing | 99 - 109 mmol/L | REFERENCE | | | | performed at [facility];[address] | | LAB | | | | [place] | | [facility] | | | | [address]vd;[place] [address] | | LABORATORY | | + + + + + + | CO2 | 26Comment: Testing | 23 - 32 mmol/L | REFERENCE | | | | Performed at [facility], [address] | | LAB | | | | [address] | | [facility] | | | | [address], [place] | | LABORATORY | | | | [address] | | | | + + + + + + | Anion Gap | 11Comment: Testing | 5 - 20 mmol/L | REFERENCE | | | | performed at [facility];[address] | | LAB | | | | [address] | | [facility] | | | | Bl[address];[place] [address] | | LABORATORY | | + + [...] | | | | | Performed at [facility], [address] | | | | | | [address] | | | | | | [address], [place] | | | | | | [address] | | | | + + + + + + + + | Specimen | + + | Blood | + + + + + + + | Performing | Address | City/State/Zipcode | Phone Number | | Organization | | | | + + + + + | REFERENCE LAB | [address] [facility] | [place] [address] | [phone] | | [facility] | Blvd. | | | | LABORATORY | | | | + + + + + | REFERENCE LAB | [address] [facility] | [place] [address] | | | [facility] | Blvd. | [...] | | LABORATORY | | | | [address] | | | | + + + + + + + + | Specimen | + + | Blood | + + + + + + + | Performing | Address | City/State/Zipcode | Phone Number | | Organization | | | | + + + + + | REFERENCE LAB | [address] [facility] | [place] [address] | [phone] | | [facility] | Blvd. | | | | LABORATORY | | | | + + + + + | REFERENCE LAB | [address] [facility] | [place] [address] | | | [facility] | Blvd. | [...] [facility] | | | | Blvd;[place] [address] | | LABORATORY | | + + + + + + | K | 4.1Comment: Testing | 3.5 - 4.9 | REFERENCE | | | | performed at [facility];[address] | mmol/L | LAB | | | | [place] | | [facility] | | | | Blvd;[place] [address] | | LABORATORY | | + + + + + + | Cl | 104Comment: Testing | 99 - 109 mmol/L | REFERENCE | | | | performed at [facility];[address] | | LAB | | | | [place] | | [facility] | | | | Blvd;[place] [address] | | LABORATORY | | + + + + + + | CO2 | 26Comment: Testing | 23 - 32 mmol/L | REFERENCE | | | | Performed at [facility], [address] | | LAB | | | | [address] | | [facility] | | | | [address], [place] | | LABORATORY | | | | [address] | | | | + + + + + + | Anion Gap | 10Comment: Testing | 5 - 20 mmol/L | REFERENCE | | | | performed at [facility];[address] | | LAB | | | | [place] | | [facility] | | | | Blvd;[place] [address] | | LABORATORY | | + + [...] | | | | | | MDRD IDWY traceable | | | | | | equation.Testing | | | | | | Performed at [facility], [address] | | | | | | [facility] | | | | | | [address], [place] | | | | | | [address] | | | | + + + + + + + + | Specimen | + + | Blood | + + + + + + + | Performing | Address | City/State/Zipcode | Phone Number | | Organization | | | | + + + + + | REFERENCE LAB | [address] [facility] | [place] [address] | [phone] | | [facility] | Blvd. | | | | LABORATORY | | | | + + + + + | REFERENCE LAB | [address] [facility] [address] | [place] [address] | | | [facility] | Blvd. | [...] K/uL | LAB | | | | [address] | | [facility] | | | | [address], [place] | | LABORATORY | | | | [address] | | | | + + + + + + + + | Specimen | + + | Blood | + + + + + + + | Performing | Address | City/State/Zipcode | Phone Number | | Organization | | | | + + + + + | REFERENCE LAB | [address] [facility] [address] | [place] [address] | [phone] | | [facility] | Blvd. | | | | LABORATORY | | | | + + + + + | REFERENCE LAB | [address] | [place] [address] | | | [facility] | Blvd. | [...] | | | | | Performed at [facility], [address] | | | | | | [address] | | | | | | [address], [place] | | | | | | [address] | | | | + + + + + + + + | Specimen | + + | Blood | + + + + + + + | Performing | Address | City/State/Zipcode | Phone Number | | Organization | | | | + + + + + | REFERENCE LAB | [address] [facility] | [place] [address] | [phone] | | [facility] | Blvd. | | | | LABORATORY | | | | + + + + + | REFERENCE LAB | [address] [facility] | [place] [address] | | | [facility] | Blvd. | [...] | | LABORATORY | | | | [address] | | | | + + + + + + + + | Specimen | + + | Blood | + + + + + + + | Performing | Address | City/State/Zipcode | Phone Number | | Organization | | | | + + + + + | REFERENCE LAB | [address] | [place] [address] | [phone] | | [facility] | Blvd. | | | | LABORATORY | | | | + + + + + | REFERENCE LAB | [address] | [place] [address] | | | [facility] | Blvd. | [...] [place] | | | | | | [address] | | | | + + + + + + + + | Specimen | + + | | + + + + + + + | Performing | Address | City/State/Zipcode | Phone Number | | Organization | | | | + + + + + | REFERENCE LAB | [address] [place] [address] | [place] [address] | [phone] | | [facility] | Blvd. | | | | LABORATORY | | | | + + + + + | REFERENCE LAB | [address] [place] [address] | [place] [address] | | | [facility] | Blvd. | [...] LAB | | | | performed at [facility];[address] | | [facility] | | | | [place] | | LABORATORY | | | | Blvd;[place] [address] | | | | | | | | | | + + + + + + + + | Specimen | + + | | + + + + + + + | Performing | Address | City/State/Zipcode | Phone Number | | Organization | | | | + + + + + | REFERENCE LAB | [address] [place] [address] | [place] [address] | [phone] | | [facility] | Blvd. | | | | LABORATORY | | | | + + + + + | REFERENCE LAB | [address] [place] [address] | [place] [address] | | | [facility] | Blvd. | [...] | | | urine | performed at [facility];[address] | | [facility] | | | | [place] | | LABORATORY | | | | Blvd;[place] [address] | | | | | | | | | | + + + + + + + + | Specimen | + + | | + + + + + + + | Performing | Address | City/State/Zipcode | Phone Number | | Organization | | | | + + + + + | REFERENCE LAB | [address] | [place] [address] | [phone] | | [facility] | Blvd. | | | | LABORATORY | | | | + + + + + | REFERENCE LAB | [address] | [place] [address] | | | [facility] | Blvd. | [...] - 1.030 | REFERENCE | | | [place], | | | LAB | | | [...] REFERENCE | | | | Performed at [facility], [address] | | LAB | | | | [address] | | [facility] | | | | [address] | | LABORATORY | | | | [address] | | | | + + + + + + + + | Specimen | + + | | + + + + + + + | Performing | Address | City/State/Zipcode | Phone Number | | Organization | | | | + + + + + | REFERENCE LAB | [address] | [place] [address] | [phone] | | [facility] | Blvd. | | | | LABORATORY | | | | + + + + + | REFERENCE LAB | [address] | [place] [address] | | | [facility] | Blvd. | [...] | | | RATIO,URINE | performed at [facility];[address] | | LAB | | | | [place] | | [facility] | | | | Blvd;[place] [address] | | LABORATORY | | + + + + + + + + | Specimen | + + | | + + + + + + + | Performing | Address | City/State/Zipcode | Phone Number | | Organization | | | | + + + + + | REFERENCE LAB | [address] [place] [address] | [place] [address] | [phone] | | [facility] | Blvd. | | | | LABORATORY | | | | + + + + + | REFERENCE LAB | [address] [place] [address] | [place] [address] | | | [facility] | Blvd. | [...] [place] | | | | | | [address] | | | | + + + + + + + + | Specimen | + + | | + + + + + + + | Performing | Address | City/State/Zipcode | Phone Number | | Organization | | | | + + + + + | REFERENCE LAB | [address] | [place] [address] | [phone] | | [facility] | Blvd. | | | | LABORATORY | | | | + + + + + | REFERENCE LAB | [address] | [place] [address] | | | [facility] | Blvd. | [...] LAB | | | | Performed at [facility], [address] | | [facility] | | | | [address] | | LABORATORY | | | | [address], [place] | | | | | | [address] | | | | + + + + + + + + | Specimen | + + | | + + + + + + + | Performing | Address | City/State/Zipcode | Phone Number | | Organization | | | | + + + + + | REFERENCE LAB | [address] | [place] [address] | [phone] | | [facility] | Blvd. | | | | LABORATORY | | | | + + + + + | REFERENCE LAB | [address] | [place] [address] | | | [facility] | Blvd. | [...]
--- OUTSIDE RECORDS SUMMARY | ~2019-12-08 | XMS | Encounter Summary ---
Demographics + + + | Address | [address] | | | [place] [address] | + + + | Home Phone [...] | | | | [place] [address] | | + + + + + | Emory Larios | ECON | Unknown | | + + + + + Care Team Providers + +------+ + | Care Head Of Academic Technology Name | Role | Phone | + +------+ + PCP | Unavailable | + +------+ + Encounter Details +--------+ + + + + | Date | Type | Department | Care Team | Description | +--------+ + + + + | 04/23/ | Emergency | [facility] | Claude Salinas MD | Epistaxis; | | 2019 | | MEDICAL CENTER | [address] | Thrombocytopenia | | | | EMERGENCY CENTER | [place] [address] | (HCC); Maintenance | | | | [address] | [phone] | chemotherapy; | | | | [place], [place] | | Pancytopenia due to | | | | [address] | | chemotherapy ([facility]) | | | | [phone] | | | +--------+ + + + [...] [place] | | | | | | [address] | | | | | | | | +--------+ + + + + | 12/17/ | Office | Oncology | Yancy Clifford MD | | | 2019 | Visit | | [address] | | | | | | [place] | | | | | | [address] | | | | | | | | +--------+ + + + + | 12/17/ | Appointment | Infusion Therapy | Yancy Clifford MD | | | 2019 | | | [address] | | | | | | [place] | | | | | | [address] | | | | | | | | +--------+ + + + + | 01/07/ | Appointment | Infusion Therapy | Yancy Clifford MD | | | 2019 | | | [address] | | | | | | [place] | | | | | | [address] | | | | | | | | +--------+ + + + + | 01/07/ | Office | Oncology | Yancy Clifford MD | | | 2019 | Visit | | [address] | | | | | | [place] | | | | | | [address] | | | | | | | | +--------+ + + + + | 01/07/ | Appointment | Infusion Therapy | Yancy Clifford MD | | | 2019 | | | [address] | | | | | | [place] | | | | | | [address] | | | | | | | [...] | | | | | performed at [facility];[address] | | | | | | [facility];[place], [place] | | | | | | [address] | | | | + + + [...] | | LAB | | | | [facility] [address] | | | | | | [address];[place] [address] | | | | + + + [...] | | | | | | MDRD IDIL traceable | | | | | | equation.Testing | | | | | | performed at [facility];[address] | | | | | | [facility];[place], [place] | | | | | | [address] | | | | + + + [...]
--- OUTSIDE RECORDS SUMMARY | ~2019-12-08 | XMS | Encounter Summary ---
Demographics + + + | Address | [address] | | | [place] [address] | + + + | Home Phone [...] | | | | [place] [address] | | + + + + + | Emory Larios | EBENEZER | Unknown | | + + + + + Care Team Providers + +------+ + | Care Information Assurance Manager Name | Role | Phone | [...] + + | 11/27/ | Office | [facility] | Yancy Clifford MD | Malignant neoplasm | | 2019 | Visit | HEMATOLOGY AND | [address] | of left ovary (HCC) | | | | ONCOLOGY [address] | [place] | (Primary Dx) | | | | [address] | [address] | | | | | [place] | | | | | | [address] | Jennyfer Calvert | | | | | [phone] | CIERRA Lou [address] | | | | [address] | | | | | | [place] [address] | | | | | | [phone] | | | | | | | [...] 05/2017 Genetic Testing Negative genetic testing through [employer]. 07/2017 Surgery S/p debulking surgery. Final pathology [...] - 145 mmol/L Final Testing performed at [facility];[address] [facility];[place] [address] K 11/27/2019 4.3 3.5 - 4.9 mmol/L Final Testing performed at [facility];[address] [facility];[place] [address] Cl 11/27/2019 106 99 - 109 mmol/L Final Testing performed at [facility];[address] [facility];[place] [address] CO2 11/27/2019 27 23 - 32 mmol/L Final Testing Performed at [facility], [address], [address], [place] [address] Anion Gap 11/27/2019 9 5 - 20 mmol/L Final Testing performed at [facility];[address] [facility];[place] [address] Glucose 11/27/2019 135* 65 - 99 mg/dL [...] MDRD IDMS traceable equation. Testing Performed at [facility], [address], [address], [place] [address] WBC 11/27/2019 8.16 3.80 - 11.00 K/uL [...] Estimate 11/27/2019 ADEQUATE Final Testing Performed at [facility], [address], [address], [place] [address] Imaging: Ct Chest Abdomen Pelvis W Contrast [...] and coordination of care. CIERRA Hartley, MIKE [facility] Hematology Oncology 11/27/2019 Portions of this chart [...] [place] | | | | | | [id number] | | | | | | | | +--------+ + + + + | 12/17/ | Office | Oncology | Yancy Clifford MD | | | 2019 | Visit | | [address] | | | | | | [place] | | | | | | [phone] | | | | | | | | +--------+ + + + + | 12/17/ | Appointment | Infusion Therapy | Yancy Clifford MD | | | 2019 | | | [address] | | | | | | [place] | | | | | | [address] | | | | | | | | +--------+ + + + + | 01/07/ | Appointment | Infusion Therapy | Yancy Clifford MD | | | 2019 | | | [address] | | | | | | [place] | | | | | | [address] | | | | | | | | +--------+ + + + + | 01/07/ | Office | Oncology | Yancy Clifford MD | | | 2019 | Visit | | [address] | | | | | | [place] | | | | | | [address] | | | | | | | | +--------+ + + + + | 01/07/ | Appointment | Infusion Therapy | Yancy Clifford MD | | | 2020 | | | [address] | | | | | | [place] | | | | | | [address] | | | | | | | | +--------+ + + + + documented as of this encounter Visit Diagnoses + + | Diagnosis | + + | 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
--- OUTSIDE RECORDS SUMMARY | ~2019-12-08 | XMS | Encounter Summary ---
Demographics + + + | Address | [address] | | | [place] [address] | + + + | Home Phone [...] | | | | [place] [address] | | + + + + + | Emory Larios | ECON | Unknown | | + + + + + Care Team Providers + +------+ + | Care Fisheries Inspector Name | Role | Phone | + +------+ + PCP | Unavailable | + +------+ + Encounter Details +--------+ + + + + | Date | Type | Department | Care Team | Description | +--------+ + + + + | 01/01/ | Hospital | [facility] | Conversion | Constipation, | | 2019 | Encounter | [facility] [address] | Transaction, | unspecified | | | | [address] | Provider Unknown | constipation type; | | | | [place], [place] | [phone] | Malignant neoplasm | | | | [address] | | of left ovary (HCC); | | | | [phone] | Yancy Clifford MD [address] | Pleural effusion, | | | | | [address] | malignant | | | | | [place] [address] | | | | | | [phone] | | | | | | | [...] [place] | | | | | | [address] | | | | | | | | +--------+ + + + + | 12/17/ | Office | Oncology | Yancy Clifford MD | | | 2019 | Visit | | [address] | | | | | | [place] | | | | | | [address] | | | | | | | | +--------+ + + + + | 12/17/ | Appointment | Infusion Therapy | Yancy Clifford MD | | | 2019 | | | [address] | | | | | | [place] | | | | | | [address] | | | | | | | | +--------+ + + + + | 01/07/ | Appointment | Infusion Therapy | Yancy Clifford MD | | | 2019 | | | [address] | | | | | | [place] | | | | | | [address] | | | | | | | | +--------+ + + + + | 01/07/ | Office | Oncology | Yancy Clifford MD | | | 2019 | Visit | | [address] | | | | | | [place] | | | | | | [address] | | | | | | | | +--------+ + + + + | 01/07/ | Appointment | Infusion Therapy | Yancy Clifford MD | | | 2019 | | | [address] | | | | | | [place] | | | | | | [address] | | | | | | | [...]
--- OUTSIDE RECORDS SUMMARY | ~2019-12-08 | XMS | Encounter Summary ---
Demographics + + + | Address | [address] | | | [place] [address] | + + + | Home Phone [...] | | | | [place] [address] | | + + + + + | Emory Larios | ECON | Unknown | | + + + + + Care Team Providers + +------+ + | Care Functional Architect Name | Role | Phone | + +------+ + | Shannan Deng | PCP | | + +------+ + Encounter Details +--------+ + + + + | Date | Type | Department | Care Team | Description | +--------+ + + + + | 07/16/ | Orders Only | [facility] | Sushma Marquis | Malignant neoplasm | | 2019 | | INFUSION SUPPORT | A, RN | of left ovary (HCC) | | | | SERVICES [address] | | (Primary Dx) | | | | [address] | | | | | | [address] [place] | | | | | | [address] | | | | | | [phone] | | | +--------+ + + + [...] [place] | | | | | | [address] | | | | | | | | +--------+ + + + + | 12/17/ | Office | Oncology | Yancy Clifford MD | | | 2019 | Visit | | [address] | | | | | | [place] | | | | | | [address] | | | | | | | | +--------+ + + + + | 12/17/ | Appointment | Infusion Therapy | Yancy Clifford MD | | | 2019 | | | [address] | | | | | | [place] | | | | | | [address] | | | | | | | | +--------+ + + + + | 01/07/ | Appointment | Infusion Therapy | Yancy Clifford MD | | | 2019 | | | [address] | | | | | | [place] | | | | | | [address] | | | | | | | | +--------+ + + + + | 01/07/ | Office | Oncology | Yancy Clifford MD | | | 2019 | Visit | | [address] | | | | | | [place] | | | | | | [address] | | | | | | | | +--------+ + + + + | 01/07/ | Appointment | Infusion Therapy | Yancy Clifford MD | | | 2020 | | | [address] | | | | | | [place] | | | | | | [address] | | | | | | | | +--------+ + + + + documented as of this encounter Visit Diagnoses + + | Diagnosis | + + | 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
--- OUTSIDE RECORDS SUMMARY | ~2019-12-08 | XMS | Encounter Summary ---
Demographics + + + | Address | [address] | | | [place] [address] | + + + | Home Phone [...] | | | | [place] [address] | | + + + + + | Emory Larios | ECON | Unknown | | + + + + + Care Team Providers + +------+ + | Care Absence Management Consultant Name | Role | Phone | [...] Unknown | | | | | [place], [place] | [phone] | | | | | [address] | | | | | | [phone] | | | +--------+ + + + [...] [place] | | | | | | [address] | | | | | | | | +--------+ + + + + | 12/17/ | Office | Oncology | Yancy Clifford MD | | | 2019 | Visit | | [address] | | | | | | [place] | | | | | | [address] | | | | | | | | +--------+ + + + + | 12/17/ | Appointment | Infusion Therapy | Yancy Clifford MD | | | 2019 | | | [address] | | | | | | [place] | | | | | | [address] | | | | | | | | +--------+ + + + + | 01/07/ | Appointment | Infusion Therapy | Yancy Clifford MD | | | 2019 | | | [address] | | | | | | [place] | | | | | | [address] | | | | | | | | +--------+ + + + + | 01/07/ | Office | Oncology | Yancy Clifford MD | | | 2019 | Visit | | [address] | | | | | | [place] | | | | | | [address] | | | | | | | | +--------+ + + + + | 01/07/ | Appointment | Infusion Therapy | Yancy Clifford MD | | | 2019 | | | [address] | | | | | | [place] | | | | | | [address] | | | | | | | | +--------+ + + + + documented as of this encounter Visit Diagnoses Not on filedocumented in this encounter"
--- OUTSIDE RECORDS SUMMARY | ~2019-12-08 | XMS | Encounter Summary ---
Demographics + + + | Address | [address] | | | [place] [address] | + + + | Home Phone [...] | | | | [place] [address] | | + + + + + | Emory Larios | ECON | Unknown | | + + + + + Care Team Providers + +------+ + | Care Negative Notcher Name | Role | Phone | + +------+ + PCP | Unavailable | + +------+ + Encounter Details +--------+ + + + + | Date | Type | Department | Care Team | Description | +--------+ + + + + | 04/23/ | Emergency | [facility] | Claude Salinas MD | Epistaxis; | | 2019 | | MEDICAL CENTER | [address] | Thrombocytopenia | | | | EMERGENCY CENTER | [place] [address] | (HCC); Maintenance | | | | [address] | [phone] | chemotherapy; | | | | [place], [place] | | Pancytopenia due to | | | | [address] | | chemotherapy ([facility]) | | | | [phone] | | | +--------+ + + + [...] [place] | | | | | | [address] | | | | | | | | +--------+ + + + + | 12/17/ | Office | Oncology | Yancy Clifford MD | | | 2019 | Visit | | [address] | | | | | | [place] | | | | | | [address] | | | | | | | | +--------+ + + + + | 12/17/ | Appointment | Infusion Therapy | Yancy Clifford MD | | | 2019 | | | [address] | | | | | | [place] | | | | | | [address] | | | | | | | | +--------+ + + + + | 01/07/ | Appointment | Infusion Therapy | Yancy Clifford MD | | | 2019 | | | [address] | | | | | | [place] | | | | | | [address] | | | | | | | | +--------+ + + + + | 01/07/ | Office | Oncology | Yancy Clifford MD | | | 2019 | Visit | | [address] | | | | | | [place] | | | | | | [address] | | | | | | | | +--------+ + + + + | 01/07/ | Appointment | Infusion Therapy | Yancy Clifford MD | | | 2019 | | | [address] | | | | | | [place] | | | | | | [address] | | | | | | | [...] | | | | | performed at [facility];[address] | | | | | | [address] [facility];[place], [place] | | | | | | [address] | | | | + + + [...] | | LAB | | | | [facility] | | | | | | S[address];[place] [address] | | | | + + + [...] | | | | | | MDRD IDVT traceable | | | | | | equation.Testing | | | | | | performed at [facility];[address] | | | | | | [facility];[place], [place] | | | | | | [address] | | | | + + + [...]
--- OUTSIDE RECORDS SUMMARY | ~2019-12-08 | XMS | Encounter Summary ---
Demographics + + + | Address | [address] | | | [place] [address] | + + + | Home Phone [...] | | | | [place] [address] | | + + + + + | Emory Larios | ECON | Unknown | | + + + + + Care Team Providers + +------+ + | Care Truck Driver Helper Name | Role | Phone | + +------+ + PCP | Unavailable | + +------+ + Encounter Details +--------+ + + + + | Date | Type | Department | Care Team | Description | +--------+ + + + + | 06/05/ | Hospital | [facility] | Conversion | Encounter for | | 2019 | Encounter | [facility] [address] | Transaction, | antineoplastic | | | | [address] | Provider Unknown | chemotherapy; | | | | [place], [place] | [phone] | Malignant neoplasm | | | | [address] | | of left ovary (HCC); | | | | [phone] | Yancy Clifford MD [address] | | | | | | [address] | 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; | | | | | [phone] | Epistaxis | | | | | [...] | | | 2019 | | | [address] | | | | | | [place] | | | | | | [address] | | | | | | | [...] [place] | | | | | | [address] | | | | | | | | +--------+ + + + + | 01/07/ | Appointment | Infusion Therapy | Yancy Clifford MD | | | 2019 | | | [address] | | | | | | [place] | | | | | | [address] | | | | | | | | +--------+ + + + + | 01/07/ | Office | Oncology | Yancy Clifford MD | | | 2019 | Visit | | [address] | | | | | | [place] | | | | | | [address] | | | | | | | | +--------+ + + + + | 01/07/ | Appointment | Infusion Therapy | Yancy Clifford MD | | | 2020 | | | [address] | | | | | | [place] | | | | | | [address] | | | | | | | [...]
--- OUTSIDE RECORDS SUMMARY | ~2019-12-08 | XMS | Encounter Summary ---
Demographics + + + | Address | [address] | | | [place] [address] | + + + | Home Phone [...] | | | | [place] [address] | | + + + + + | Emory Larios | ECON | Unknown | | + + + + + Care Team Providers + +------+ + | Care Lead Infrastructure Architect Name | Role | Phone | + +------+ + | Shannan Deng | PCP | | + +------+ + Encounter Details +--------+ + + + + | Date | Type | Department | Care Team | Description | +--------+ + + + + | 09/24/ | Hospital | [facility] | Yancy Clifford MD | 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) | | | | SERVICES [address] | [place] | (Primary Dx) | | | | [address] [place] | [id number] | | | | | [address] [place] | | | | | | [address] | Sushma Marquis | | | | | [phone] | Tiana RN | | +--------+ + [...] 1:44 PM PDTPort accessed for lab draw. lab support tech nique maintained throughout procedure. Saline locked, left accessed for treatment. Urine s ample obtained. do cumented in this encounter Plan of Treatment +--------+ + + + + | Date | Type | Specialty | Care Team | Description | +--------+ + + + + | 12/17/ | Appointment | Infusion Therapy | Yancy Clifford MD | | | 2019 | | | [address] | | | | | | [place] | | | | | | [address] | | | | | | | | +--------+ + + + + | 12/17/ | Office | Oncology | Yancy Clifford MD | | | 2019 | Visit | | [address] | | | | | | [place] | | | | | | [address] | | | | | | | | +--------+ + + + + | 12/17/ | Appointment | Infusion Therapy | Yancy Clifford MD | | | 2019 | | | [address] | | | | | | [place] | | | | | | [address] | | | | | | | | +--------+ + + + + | 01/07/ | Appointment | Infusion Therapy | Yancy Clifford MD | | | 2019 | | | [address] | | | | | | [place] | | | | | | [address] | | | | | | | | +--------+ + + + + | 01/07/ | Office | Oncology | Yancy Clifford MD | | | 2019 | Visit | | [address] | | | | | | [place] | | | | | | [address] | | | | | | | | +--------+ + + + + | 01/07/ | Appointment | Infusion Therapy | Yancy Clifford MD | | | 2020 | | | [address] | | | | | | [place] | | | | | | [address] | | | | | | | [...] [facility] | | | | Blvd;[place] [address] | | LABORATORY | | + + + + + + | K | 4.1Comment: Testing | 3.5 - 4.9 | REFERENCE | | | | performed at [facility];[address] | mmol/L | LAB | | | | [place] | | [facility] | | | | [address];[place] [address] | | LABORATORY | | + + + + + + | Cl | 104Comment: Testing | 99 - 109 mmol/L | REFERENCE | | | | performed at [facility];[address] | | LAB | | | | [place] | | [facility] | | | | Bl[address];[place] [address] | | LABORATORY | | + + + + + + | CO2 | 26Comment: Testing | 23 - 32 mmol/L | REFERENCE | | | | Performed at [facility], [address] | | LAB | | | | [address] | | [facility] | | | | [address], [place] | | LABORATORY | | | | [address] | | | | + + + + + + | Anion Gap | 10Comment: Testing | 5 - 20 mmol/L | REFERENCE | | | | performed at [facility];[address] | | LAB | | | | [facility] | | [facility] | | | | Bl[address];[place] [address] | | LABORATORY | | + + [...] [place] | | | | | | [address] | | | | + + + + + + + + | Specimen | + + | Blood | + + + + + + + | Performing | Address | City/State/Zipcode | Phone Number | | Organization | | | | + + + + + | REFERENCE LAB | [address] [place] [address] | [place] [address] | [phone] | | [facility] | Blvd. | | | | LABORATORY | | | | + + + + + | REFERENCE LAB | [address] [place] [address] | [place] [address] | | | [facility] | Blvd. | [...] | | LABORATORY | | | | [address] | | | | + + + + + + + + | Specimen | + + | Blood | + + + + + + + | Performing | Address | City/State/Zipcode | Phone Number | | Organization | | | | + + + + + | REFERENCE LAB | [address] | [place] [address] | [phone] | | [facility] | Blvd. | | | | LABORATORY | | | | + + + + + | REFERENCE LAB | [address] | [place] [address] | | | [facility] | Blvd. | [...]
--- OUTSIDE RECORDS SUMMARY | ~2019-12-08 | XMS | Encounter Summary ---
Demographics + + + | Address | [address] | | | [place] [address] | + + + | Home Phone [...] | | | | [place] [address] | | + + + + + | Emory Larios | ECON | Unknown | | + + + + + Care Team Providers + +------+ + | Care Shirring Machine Operator Name | Role | Phone [...] + + | 11/23/ | Telephone | [facility] | Zonia Rivas RN | Triage | | 2019 | | HEMATOLOGY AND | | | | | | ONCOLOGY INFUSIONS | | | | | | [address] | | | | | | [place] | | | | | | [address] | | | | | | [phone] | | | +--------+ + + + [...] [place] | | | | | | [address] | | | | | | | | +--------+ + + + + | 12/17/ | Office | Oncology | Yancy Clifford MD | | | 2019 | Visit | | [address] | | | | | | [place] | | | | | | [address] | | | | | | | | +--------+ + + + + | 12/17/ | Appointment | Infusion Therapy | Yancy Clifford MD | | | 2019 | | | [address] | | | | | | [place] | | | | | | [address] | | | | | | | | +--------+ + + + + | 01/07/ | Appointment | Infusion Therapy | Yancy Clifford MD | | | 2019 | | | [address] | | | | | | [place] | | | | | | [address] | | | | | | | | +--------+ + + + + | 01/07/ | Office | Oncology | Yancy Clifford MD | | | 2019 | Visit | | [address] | | | | | | [place] | | | | | | [address] | | | | | | | | +--------+ + + + + | 01/07/ | Appointment | Infusion Therapy | Yancy Clifford MD | | | 2019 | | | [address] | | | | | | [place] | | | | | | [address] | | | | | | | | +--------+ + + + + documented as of this encounter Visit Diagnoses Not on filedocumented in this encounter"
--- OUTSIDE RECORDS SUMMARY | ~2019-12-08 | XMS | Encounter Summary ---
Demographics + + + | Address | [address] [facility] [address] | | | [place] [address] | + + + | Home Phone [...] | + + + + + | Jraed John | ECON | [address] | | | | | [place] [address] | | + + + + + | Emory Larios | ECON | Unknown | | + + + + + Care Team Providers + +------+ + | Care Mainframe Consultant Name | Role | Phone | + +------+ + | Shannan Deng | PCP | | + +------+ + Encounter Details +--------+ + + + + | Date | Type | Department | Care Team | Description | +--------+ + + + + | 11/05/ | Hospital | [facility] | Yancy Clifford MD | 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) | | | | SERVICES [address] | [place] | (Primary Dx) | | | | [address] [place] | [id number] | | | | | [address] [facility] [place] | | | | | | [address] | Sherrill Javed, | | | | | [phone] | RN | | +--------+ + + [...] | | | 2019 | | | [address] | | | | | | [place] | | | | | | [address] | | | | | | | | +--------+ + + + + | 12/17/ | Office | Oncology | Yancy Clifford MD | | | 2019 | Visit | | [address] | | | | | | [place] | | | | | | [address] | | | | | | | | +--------+ + + + + | 12/17/ | Appointment | Infusion Therapy | Yancy Clifford MD | | | 2019 | | | [address] | | | | | | [place] | | | | | | [address] | | | | | | | | +--------+ + + + + | 01/07/ | Appointment | Infusion Therapy | Yancy Clifford MD | | | 2019 | | | [address] | | | | | | [place] | | | | | | [address] | | | | | | | | +--------+ + + + + | 01/07/ | Office | Oncology | Yancy Clifford MD | | | 2019 | Visit | | [address] | | | | | | [place] | | | | | | [address] | | | | | | | | +--------+ + + + + | 01/07/ | Appointment | Infusion Therapy | Yancy Clifford MD | | | 2019 | | | [address] | | | | | | [place] | | | | | | [address] | | | | | | | [...] [place] | | | | | | [address] | | | | + + + + + + + + | Specimen | + + | | + + + + + + + | Performing | Address | City/State/Zipcode | Phone Number | | Organization | | | | + + + + + | REFERENCE LAB | [address] [place], [place] [address] | [place] [address] | [phone] | | [facility] | Blvd. | | | | LABORATORY | | | | + + + + + | REFERENCE LAB | [address] | [place] [address] | | | [facility] | Blvd. | [...] LAB | | | | performed at [facility];[address] | | [facility] | | | | [place] | | LABORATORY | | | | Blvd;[place] [address] | | | | | | | | | | + + + + + + + + | Specimen | + + | | + + + + + + + | Performing | Address | City/State/Zipcode | Phone Number | | Organization | | | | + + + + + | REFERENCE LAB | [address] [facility] | [place] [address] | [phone] | | [facility] | Blvd. | | | | LABORATORY | | | | + + + + + | REFERENCE LAB | [address] [facility] | [place] [address] | | | [facility] | Blvd. | [...] | | | urine | performed at [facility];[address] | | [facility] | | | | [place] | | LABORATORY | | | | Blvd;[place] [address] | | | | | | | | | | + + + + + + + + | Specimen | + + | | + + + + + + + | Performing | Address | City/State/Zipcode | Phone Number | | Organization | | | | + + + + + | REFERENCE LAB | [address] [facility] | [place] [address] | [phone] | | [facility] | Blvd. | | | | LABORATORY | | | | + + + + + | REFERENCE LAB | [address] [facility] | [place] [address] | | | [facility] | Blvd. | [...] - 1.030 | REFERENCE | | | [place], | | | LAB | | | [...] REFERENCE | | | | Performed at [facility], [address] | | LAB | | | | [address] | | [facility] | | | | [address] | | LABORATORY | | | | [address] | | | | + + + + + + + + | Specimen | + + | | + + + + + + + | Performing | Address | City/State/Zipcode | Phone Number | | Organization | | | | + + + + + | REFERENCE LAB | [address] [place] [address] | [place] [address] | [phone] | | [facility] | Blvd. | | | | LABORATORY | | | | + + + + + | REFERENCE LAB | [address] [place] [address] | [place] [address] | | | [facility] | Blvd. | [...] | | | RATIO,URINE | performed at [facility];[address] | | LAB | | | | [facility] | | [facility] | | | | vd;[place] [address] | | LABORATORY | | + + + + + + + + | Specimen | + + | | + + + + + + + | Performing | Address | City/State/Zipcode | Phone Number | | Organization | | | | + + + + + | REFERENCE LAB | [address] [place] [address] | [place] [address] | [phone] | | [facility] | Blvd. | | | | LABORATORY | | | | + + + + + | REFERENCE LAB | [address] [place] [address] | [place] [address] | | | [facility] | Blvd. | [...] | | LABORATORY | | | | [address] | | | | + + + + + + + + | Specimen | + + | Blood | + + + + + + + | Performing | Address | City/State/Zipcode | Phone Number | | Organization | | | | + + + + + | REFERENCE LAB | [address] [place] [address] | [place] [address] | [phone] | | [facility] | Blvd. | | | | LABORATORY | | | | + + + + + | REFERENCE LAB | [address] [place] [address] | [place] [address] | | | [facility] | Blvd. | [...] | | | | | performed at [facility];[address] | | | | | | [facility] | | | | | | Blvd;[place] [address] | | | | | | | | | | + + + + + + + + | Specimen | + + | Blood | + + + + + + + | Performing | Address | City/State/Zipcode | Phone Number | | Organization | | | | + + + + + | REFERENCE LAB | [address] [facility] | [place] [address] | [phone] | | [facility] | Blvd. | | | | LABORATORY | | | | + + + + + | REFERENCE LAB | [address] | [place] [address] | | | [facility] | Blvd. | [...]
--- OUTSIDE RECORDS SUMMARY | ~2019-12-08 | XMS | Encounter Summary ---
Demographics + + + | Address | [address] [address] | | | [place] [address] | + + + | Home Phone [...] | | | | [place] [address] | | + + + + + | Emory Larios | ECON | Unknown | | + + + + + Care Team Providers + +------+ + | Care Tube Filler Name | Role | Phone | [...] | | Ascites, | [place], | [place] [address] | | | | | malignant | [place] [address] | Phone: | | | | | Procedures | Phone: | [phone] | | | | | [place] | [phone] | Fax: | | | | | [facility] | Fax: | [phone] | | | | | INJECTION, | [phone] | | | | | | 10 [...] + + | 11/27/ | Hospital | [facility] | Yancy Clifford MD | Malignant neoplasm | | 2019 | Encounter | HEMATOLOGY AND | [address] | of left ovary (HCC) | | | | ONCOLOGY INFUSIONS | [place] | (Primary Dx); | | | | [address] | [address] | Ascites, malignant | | | | [address]VE [place], [place] | | | | | | [address] | Yumiko Crocker, | | | | | [phone] | RN | | +--------+ + + [...] vein. It is given by a health caregivers homecare in a h ospital or clinic setting. Talk to your radio time salesperson regarding the use of this medicine in children. Special care may be needed. What side effects may I notice from receiving this medicine? Side effects that you should report to your doctor or health caregivers homecare as soon as p ossible: allergic reactions [...] attention (report to your doctor or health caregivers homecare if they continue or are bothersome): back pain changes in taste decreased appetite dry skin nausea tiredness What may interact with this medicine? Interactions are not expected. What if I miss a dose? It is important not to miss your dose. Call your doctor or health caregivers homecare if you are unable to keep an [...] should talk to your doctor or health caregivers homecare if you are concerned about your fertility. [...] with [facility] DRAW in [facility] INFUSION SUPPORT SERVICES 2:15 PM: Office Visit Extended Appointment starts at 2:30 PM with Yancy Clifford MD in [facility] HEMATOLOGY AND ONCOLOGY 3:00 PM: Onc Infusion with JAZZY CHAIR 14 in [facility] HEMATOLOGY AND ONCOLOGY INFUSIONS documented in [...] [place] | | | | | | [address] | | | | | | | | +--------+ + + + + | 12/17/ | Office | Oncology | Yancy Clifford MD | | | 2019 | Visit | | [address] | | | | | | [place] | | | | | | [address] | | | | | | | | +--------+ + + + + | 12/17/ | Appointment | Infusion Therapy | Yancy Clifford MD | | | 2019 | | | [address] | | | | | | [place] | | | | | | [address] | | | | | | | | +--------+ + + + + | 01/07/ | Appointment | Infusion Therapy | Yancy Clifford MD | | | 2019 | | | [address] | | | | | | [place] | | | | | | [address] | | | | | | | | +--------+ + + + + | 01/07/ | Office | Oncology | Yancy Clifford MD | | | 2019 | Visit | | [address] | | | | | | [place] | | | | | | [address] | | | | | | | | +--------+ + + + + | 01/07/ | Appointment | Infusion Therapy | Yancy Clifford MD | | | 2019 | | | [address] | | | | [...]
--- OUTSIDE RECORDS SUMMARY | ~2019-12-08 | XMS | Clinical Summary ---
Demographics + + + | Address | [address] [facility] [address] | | | [place] [address] | + + + | Home Phone [...] | | | | [place] [address] | | + + + + + | Emory Larios | ECON | Unknown | | + + + + + Care Team Providers + +------+ + | Care Communications Assistant Name | Role | Phone | [...] neoplasm | | 2019 | | | Infection Control Rn | of left ovary (HCC); | | [...] | | 2018 | | | M, Infection Control Rn | of left ovary (HCC); | | [...] [place] | | | | | | [address] | | | | | | | | +--------+ + + + + | 12/17/ | Office | Oncology | Yancy Clifford MD | | | 2019 | Visit | | [address] | | | | | | [place] | | | | | | [address] | | | | | | | | +--------+ + + + + | 12/17/ | Appointment | Infusion Therapy | Yancy Clifford MD | | | 2019 | | | [address] | | | | | | [place] | | | | | | [address] | | | | | | | | +--------+ + + + + | 01/07/ | Appointment | Infusion Therapy | Yancy Clifford MD | | | 2019 | | | [address] | | | | | | [place] | | | | | | [address] | | | | | | | | +--------+ + + + + | 01/07/ | Office | Oncology | Yancy Clifford MD | | | 2019 | Visit | | [address] | | | | | | [place] | | | | | | [address] | | | | | | | | +--------+ + + + + | 01/07/ | Appointment | Infusion Therapy | Yancy Clifford MD | | | 2019 | | | [address] | | | | | | [place] | | | | | | [address] | | | | | | | [...] - 1.030 | REFERENCE | | | [place], | | | LAB | | | [...] | Performed at [facility], [address] | | LAB | | | | [address] | | [facility] | | | | [place] | | LABORATORY | | | | [address] | | | | + + + + + + + + | Specimen | + + | | + + + + + + + | Performing | Address | City/State/Zipcode | Phone Number | | Organization | | | | + + + + + | REFERENCE LAB | [address] [place] [address] | [place] [address] | [phone] | | [facility] | Blvd. | | | | LABORATORY | | | | + + + + + | REFERENCE LAB | [address] [place] [address] | [place] [address] | | | [facility] | Blvd. | [...] [place] | | | | | | [address] | | | | + + + + + + + + | Specimen | + + | | + + + + + + + | Performing | Address | City/State/Zipcode | Phone Number | | Organization | | | | + + + + + | REFERENCE LAB | [address] [place], [place] [address] | [place] [address] | [phone] | | [facility] | Blvd. | | | | LABORATORY | | | | + + + + + | REFERENCE LAB | [address] [place], [place] [address] | [place] [address] | | | [facility] | Blvd. | [...] | performed at [facility];[address] | | LAB | | | | [facility] | | [facility] | | | | Blvd;[place] [address] | | LABORATORY | | + + + + + + + + | Specimen | + + | Urine | + + + + + + + | Performing | Address | City/State/Zipcode | Phone Number | | Organization | | | | + + + + + | REFERENCE LAB | [address] [place] [address] | [place] [address] | [phone] | | [facility] | Blvd. | | | | LABORATORY | | | | + + + + + | REFERENCE LAB | [address] [place] [address] | [place] [address] | | | [facility] | Blvd. | [...] | performed at [facility];[address] | | [facility] | | | | [facility] | | LABORATORY | | | | Blvd;[place] [address] | | | | | | | | | | + + + + + + + + | Specimen | + + | | + + + + + + + | Performing | Address | City/State/Zipcode | Phone Number | | Organization | | | | + + + + + | REFERENCE LAB | [address] [place] [address] | [place] [address] | [phone] | | [facility] | Blvd. | | | | LABORATORY | | | | + + + + + | REFERENCE LAB | [address] [place] [address] | [place] [address] | | | [facility] | Blvd. | | | | LABORATORY | | | | + + + + + Creatinine, Urine, Random (11/27/2019 9:39 AM [facility])Only the most recent of 4 results within [...] | performed at [facility];[address] | | [facility] | | | | [facility] | | LABORATORY | | | | Blvd;[place] [address] | | | | | | | | | | + + + + + + + + | Specimen | + + | | + + + + + + + | Performing | Address | City/State/Zipcode | Phone Number | | Organization | | | | + + + + + | REFERENCE LAB | [address] [facility] | [place] [address] | [phone] | | [facility] | Blvd. | | | | LABORATORY | | | | + + + + + | REFERENCE LAB | [address] | [place] [address] | | | [facility] | Blvd. | [...] | | | Estimate | Performed at [facility], [address] | | LAB | | | | [address] | | [facility] | | | | [address], [place] | | LABORATORY | | | | [address] | | | | + + + + + + + + | Specimen | + + | Blood | + + + + + + + | Performing | Address | City/State/Zipcode | Phone Number | | Organization | | | | + + + + + | REFERENCE LAB | [address] [place] [address] | [place] [address] | [phone] | | [facility] | Blvd. | | | | LABORATORY | | | | + + + + + | REFERENCE LAB | [address] [place] [address] | [place] [address] | | | [facility] | Blvd. | [...] [facility] | | | | Blvd;[place] [address] | | LABORATORY | | + + + + + + | K | 4.3Comment: Testing | 3.5 - 4.9 | REFERENCE | | | | performed at [facility];[address] | mmol/L | LAB | | | | [place] | | [facility] | | | | Blvd;[place] [address] | | LABORATORY | | + + + + + + | Cl | 106Comment: Testing | 99 - 109 mmol/L | REFERENCE | | | | performed at [facility];[address] | | LAB | | | | [place] | | [facility] | | | | Blvd;[place] [address] | | LABORATORY | | + + + + + + | CO2 | 27Comment: Testing | 23 - 32 mmol/L | REFERENCE | | | | Performed at [facility], [address] | | LAB | | | | [address] | | [facility] | | | | [address], [place] | | LABORATORY | | | | [address] | | | | + + + + + + | Anion Gap | 9Comment: Testing | 5 - 20 mmol/L | REFERENCE | | | | performed at [facility];[address] | | LAB | | | | [place] | | [facility] | | | | Blvd;[place] [address] | | LABORATORY | | + + [...] | | | | | [address], [place] | | | | | | [address] | | | | + + + + + + + + | Specimen | + + | Blood | + + + + + + + | Performing | Address | City/State/Zipcode | Phone Number | | Organization | | | | + + + + + | REFERENCE LAB | [address] [place] [address] | [place] [address] | [phone] | | [facility] | Blvd. | | | | LABORATORY | | | | + + + + + | REFERENCE LAB | [address] [place] [address] | [place] [address] | | | [facility] | Blvd. | [...] REFERENCE | | | | [facility] | | LAB | | | | [facility] | | [facility] | | | | [...] | | | | | [facility];[address] | | | | | | Bl;[place] [address] | | | | | | | | | | + + + + + + + + | Specimen | + + | Blood | + + + + + + + | Performing | Address | City/State/Zipcode | Phone Number | | Organization | | | | + + + + + | REFERENCE LAB | [address] [place] [address] | [place] [address] | [phone] | | [facility] | Blvd. | | | | LABORATORY | | | | + + + + + | REFERENCE LAB | [address] [place] [address] | [place] [address] | | | [facility] | Blvd. | | | [...] +--------+ +---------+--------+ | MEDICARE | MEDICA | [id number] | 05/02/20 | [phone] | | Medica | | | RE | | 17-Pre | 5 | | re | | | PART A | | sent | | | | | | AND B | | | | | | + +--------+ +--------+ +---------+--------+ | COORDINATED CARE | COORDI | [id number] | 04/01/20 | | | Medica | [...] +---------+--------+ | MEDICAID [place] | MEDICA | [id number] | 07/04/20 | [phone] | | Medica [...] Person | Self | [birth year] | | [address] | | | al/Fam | | 1959 | | [place], | | | ever | | | 6 (Home) | [place] [address] | + +--------+ +--------+ + + | Ramila Lopez | Person | Self | [birth year] | | [address] | | | al/Fam | | 1959 | [phone] | [place] [address] [place], | | | ever | | | 6 (Home) | [place] [address] | + +--------+ +--------+ + + Advance Directives + + + + + | Type | Date Recorded | Patient | Explanation | | | | Diagnostic Technologist | | + + + + + | Power of | | | | | Configuration Management Specialist | | | | + + + + + | Advance | | | | | Directive | | | | + + + + +
--- OUTSIDE RECORDS SUMMARY | ~2019-12-08 | XMS | Encounter Summary ---
Demographics + + + | Address | [address] [address] | | | [place] [address] | + + + | Home Phone [...] | | | | [place] [address] | | + + + + + | Emory Larios | ECON | Unknown | | + + + + + Care Team Providers + +------+ + | Care Hr Shared Services Consultant Name | Role | Phone | + +------+ + PCP | Unavailable | + +------+ + Encounter Details +--------+ + + + + | Date | Type | Department | Care Team | Description | +--------+ + + + + | 06/14/ | Hospital | [facility] | Conversion | Back pain, | | 2015 | Encounter | CONVERSION DEP [address] | Transaction, | unspecified location | | | | [address] | Provider Unknown | | | | | [place], [place] | | | | | | [address] | (Fax) | | | | | [...] [place] | | | | | | [address] | | | | | | | | +--------+ + + + + | 12/17/ | Office | Oncology | Yancy Clifford MD | | | 2019 | Visit | | [address] | | | | | | [place] | | | | | | [address] | | | | | | | | +--------+ + + + + | 12/17/ | Appointment | Infusion Therapy | Yancy Clifford MD | | | 2019 | | | [address] | | | | | | [place] | | | | | | [address] | | | | | | | | +--------+ + + + + | 01/07/ | Appointment | Infusion Therapy | Yancy Clifford MD | | | 2019 | | | [address] | | | | | | [place] | | | | | | [address] | | | | | | | | +--------+ + + + + | 01/07/ | Office | Oncology | Yancy Clifford MD | | | 2019 | Visit | | [address] | | | | | | [place] | | | | | | [address] | | | | | | | | +--------+ + + + + | 01/07/ | Appointment | Infusion Therapy | Yancy Clifford MD | | | 2019 | | | [address] | | | | | | [place] | | | | | | [address] | | | | | | | [...]
--- OUTSIDE RECORDS SUMMARY | ~2019-12-08 | XMS | Encounter Summary ---
Demographics + + + | Address | [address] [facility] [address] | | | [place] [address] | + + + | Home Phone [...] | | | | [place] [address] | | + + + + + | Emory Larios | ECON | Unknown | | + + + + + Care Team Providers + +------+ + | Care Access Manager Name | Role | Phone | [...] + + | 11/05/ | Telephone | [facility] | Yancy Clifford MD | LABS (add on) | | 2019 | | HEMATOLOGY AND | [address] | | | | | ONCOLOGY [address] | [place] | | | [address] | [address] | | | | | [place] | | | | | | [address] | | | | | | [phone] | | | +--------+ + + + [...] [place] | | | | | | [address] | | | | | | | | +--------+ + + + + | 12/17/ | Office | Oncology | Yancy Clifford MD | | | 2019 | Visit | | [address] | | | | | | [place] | | | | | | [address] | | | | | | | | +--------+ + + + + | 12/17/ | Appointment | Infusion Therapy | Yancy Clifford MD | | | 2019 | | | [address] | | | | | | [place] | | | | | | [address] | | | | | | | | +--------+ + + + + | 01/07/ | Appointment | Infusion Therapy | Yancy Clifford MD | | | 2019 | | | [address] | | | | | | [place] | | | | | | [address] | | | | | | | | +--------+ + + + + | 01/07/ | Office | Oncology | Yancy Clifford MD | | | 2019 | Visit | | [address] | | | | | | [place] | | | | | | [address] | | | | | | | | +--------+ + + + + | 01/07/ | Appointment | Infusion Therapy | Yancy Clifford MD | | | 2019 | | | [address] | | | | | | [place] | | | | | | [address] | | | | | | | | +--------+ + + + + documented as of this encounter Visit Diagnoses Not on filedocumented in this encounter"
--- OUTSIDE RECORDS SUMMARY | ~2019-12-08 | XMS | Encounter Summary ---
Demographics + + + | Address | [address] [facility] [address] | | | [place] [address] | + + + | Home Phone [...] | | | | [place] [address] | | + + + + + | Emory Larios | ECON | Unknown | | + + + + + Care Team Providers + +------+ + | Care Heat Treat Technician Name | Role | Phone | [...] | | | Ascites, | [place], | [place] [address] | | | | | malignant | [place] [address] | Phone: | | | | | Procedures | Phone: | [phone] | | | | | [place] | [phone] | Fax: | | | | | BEVACIZUMAB | Fax: | [phone] | | | | | INJECTION, | [phone] | | | | | | 10 MG [id number] | | | | | | | - [place] | | | | | | | [...] + + | 07/23/ | Hospital | [facility] | Yancy Clifford MD | Malignant neoplasm | | 2019 | Encounter | HEMATOLOGY AND | [address] | of left ovary (HCC) | | | | ONCOLOGY INFUSIONS | [place] | (Primary Dx); | | | | [address] | [address] | Ascites, malignant | | | | [address]VE [place], [place] | | | | | | [address] | Yumiko Crocker, | | | | | [phone] | RN | | +--------+ + + [...] vein. It is given by a health managed care manager in a h ospital or clinic setting. Talk to your dispatcher refinery regarding the use of this medicine in children. Special care may be needed. What side effects may I notice from receiving this medicine? Side effects that you should report to your doctor or health managed care manager as soon as p ossible: allergic reactions [...] attention (report to your doctor or health managed care manager if they continue or are bothersome): back pain changes in taste decreased appetite dry skin nausea tiredness What may interact with this medicine? Interactions are not expected. What if I miss a dose? It is important not to miss your dose. Call your doctor or health managed care manager if you are unable to keep an [...] should talk to your doctor or health managed care manager if you are concerned about your fertility. [...] with [facility] in [facility] INF[facility]ION [facility] 08/13/2019 0945 - Office Visit Extended with CIERRA Hartley in [facility] HEMATOLOGY AND ONCOLOGY 08/13/2019 1015 - Onc Infusion with [facility] CHAIR 04 in [facility] HEMATOLOGY AND ONCOLOGY INFUSIONS 08/13/2019 1230 - Office Visit Regular appointment starts at 1240 with Scott Boswell MD in [facility] PULMONOLOGY 12:1 3 PM PDTdocumented in [...] [place] | | | | | | [address] | | | | | | | | +--------+ + + + + | 12/17/ | Office | Oncology | Yancy Clifford MD | | | 2019 | Visit | | [address] | | | | | | [place] | | | | | | [address] | | | | | | | | +--------+ + + + + | 12/17/ | Appointment | Infusion Therapy | Yancy Clifford MD | | | 2019 | | | [address] | | | | | | [place] | | | | | | [address] | | | | | | | | +--------+ + + + + | 01/07/ | Appointment | Infusion Therapy | Yancy Clifford MD | | | 2019 | | | [address] | | | | | | [place] | | | | | | [address] | | | | | | | | +--------+ + + + + | 01/07/ | Office | Oncology | Yancy Clifford MD | | | 2019 | Visit | | [address] | | | | | | [place] | | | | | | [address] | | | | | | | | +--------+ + + + + | 01/07/ | Appointment | Infusion Therapy | Yancy Clifford MD | | | 2019 | | | [address] | | | | | | [place] | | | | | | [address] | | | | | | | [...] | | | | | NS, Starting [facility] 07/23/19 at 1042 | | | | | | + +---------+ +---------+ +---+ +---+---+ | | | +---+---+ documented in this encounter"
--- OUTSIDE RECORDS SUMMARY | ~2019-12-08 | XMS | Encounter Summary ---
Demographics + + + | Address | [address] | | | [place] [address] | + + + | Home Phone [...] | | | | [place] [address] | | + + + + + | Emory Larios | ECON | Unknown | | + + + + + Care Team Providers + +------+ + | Care Lace Paper Machine Operator Name | Role | Phone [...] Provider Unknown | | | | | [place], [place] | [phone] | | | | | [address] | | | | | | [phone] | | | +--------+ + + + [...] [place] | | | | | | [address] | | | | | | | | +--------+ + + + + | 12/17/ | Office | Oncology | Yancy Clifford MD | | | 2019 | Visit | | [address] | | | | | | [place] | | | | | | [address] | | | | | | | | +--------+ + + + + | 12/17/ | Appointment | Infusion Therapy | Yancy Clifford MD | | | 2019 | | | [address] | | | | | | [place] | | | | | | [address] | | | | | | | | +--------+ + + + + | 01/07/ | Appointment | Infusion Therapy | Yancy Clifford MD | | | 2019 | | | [address] | | | | | | [place] | | | | | | [address] | | | | | | | | +--------+ + + + + | 01/07/ | Office | Oncology | Yancy Clifford MD | | | 2019 | Visit | | [address] | | | | | | [place] | | | | | | [address] | | | | | | | | +--------+ + + + + | 01/07/ | Appointment | Infusion Therapy | Yancy Clifford MD | | | 2019 | | | [address] | | | | | | [place] | | | | | | [address] | | | | | | | | +--------+ + + + + documented as of this encounter Visit Diagnoses Not on filedocumented in this encounter"
--- OUTSIDE RECORDS SUMMARY | ~2019-12-08 | XMS | Encounter Summary ---
Demographics + + + | Address | [address] [facility] [address] | | | [place] [address] | + + + | Home Phone [...] | | | | | [place] [address] | | + + + + + | Emory Larios | ECON | Unknown | | + + + + + Care Team Providers + +------+ + | Care Snath Handle Assembler Name | Role | Phone | + +------+ + PCP | Unavailable | + +------+ + Encounter Details +--------+ + + + + | Date | Type | Department | Care Team | Description | +--------+ + + + + | 01/15/ | Orders Only | [facility] | Yancy Clifford MD | | | 2019 | | HEMATOLOGY AND | [address] | | | | | ONCOLOGY INFUSIONS | [place], [place] | | | | | [address] | [address] | | | | | [address]VE [place], [place] | | | | | | [address] | | | | | | [phone] | | | +--------+ + + + [...] [place] | | | | | | [address] | | | | | | | | +--------+ + + + + | 12/17/ | Office | Oncology | Yancy Clifford MD | | | 2019 | Visit | | [address] | | | | | | [place] | | | | | | [address] | | | | | | | | +--------+ + + + + | 12/17/ | Appointment | Infusion Therapy | Yancy Clifford MD | | | 2019 | | | [address] | | | | | | [place] | | | | | | [address] | | | | | | | | +--------+ + + + + | 01/07/ | Appointment | Infusion Therapy | Yancy Clifford MD | | | 2019 | | | [address] | | | | | | [place] | | | | | | [address] | | | | | | | | +--------+ + + + + | 01/07/ | Office | Oncology | Yancy Clifford MD | | | 2019 | Visit | | [address] | | | | | | [place] | | | | | | [address] | | | | | | | | +--------+ + + + + | 01/07/ | Appointment | Infusion Therapy | Yancy Clifford MD | | | 2019 | | | [address] | | | | | | [place] | | | | | | [address] | | | | | | | [...] EXTERNAL | | | | [facility] [employer] | | LAB | | | | [...]
--- OUTSIDE RECORDS SUMMARY | ~2019-12-08 | XMS | Encounter Summary ---
Demographics + + + | Address | [address] | | | [place] [address] | + + + | Home Phone [...] | | | | [place] [address] | | + + + + + | Emory Larios | EBENEZER | Unknown | | + + + + + Care Team Providers + +------+ + | Care Moisture Meter Reader Name | Role | Phone | + [...] + + | 09/03/ | Office | [facility] | Yancy Clifford MD | Malignant neoplasm | | 2019 | Visit | HEMATOLOGY AND | [address] | of left ovary (HCC) | | | | ONCOLOGY [address] | [place] | (Primary Dx) | | | | [address] | [address] | | | | | [place] | | | | | | [address] | Jennyfer Calvert | | | | | [phone] | M, 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 [facility] H[facility]ology [facility] Oncology Oncology Progress Note Patient [...] 05/2017 Genetic Testing Negative genetic testing through [employer]. 07/2017 Surgery S/p debulking surgery. Final pathology [...] 35 U/mL Final Comment: [facility] [employer] [employer] [employer] IMMUNOASSAY METHOD IS USED. RESULTS OBTAINED WITH DIFFERENT ASSAY METHODS OR KITS CANNOT BE USED INTERCHANGEABLY. Testing performed at [facility];[address];[place] [address] Ct Chest Abdomen Pelvis W Contrast Result [...] and coordination of care. CIERRA Hartley, MIKE [facility] Hematology Oncology 09/03/2019 Portions of this chart [...] [place] | | | | | | [address] | | | | | | | [...] [place] | | | | | | [address] | | | | | | | | +--------+ + + + + | 01/07/ | Appointment | Infusion Therapy | Yancy Clifford MD | | | 2019 | | | [address] | | | | | | [place] | | | | | | [address] | | | | | | | | +--------+ + + + + | 01/07/ | Office | Oncology | Yancy Clifford MD | | | 2019 | Visit | | [address] | | | | | | [place] | | | | | | [address] | | | | | | | | +--------+ + + + + | 01/07/ | Appointment | Infusion Therapy | Yancy Clifford MD | | | 2020 | | | [address] | | | | | | [place] | | | | | | [address] | | | | | | | | +--------+ + + + + documented as of this encounter Visit Diagnoses + + | Diagnosis | + + | 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
[~2019-12-08 13:42] MED LIST changes: +AMOXICILLIN500 MG PO
--- OUTSIDE RECORDS SUMMARY | 2019-12-08 13:46 | XMS ---
PreManage Notification: ELSY BAXTER Security Vocational Teacher Events No recent Security Events currently on file CRITERIA MET - [facility] - 2 Visits in 30 Days CARE PROVIDERS CASEY TATUM Physician Bar Machine Operator Current PHONE: Unknown Elizabeth has no Care Guidelines for this patient. E.D. VISIT COUNT (12 MO.) [facility] [address] [place] [address] TOTAL 5 NOTE: Visits indicate total known visits. ED/UCC VISIT TRACKING (12 MO.) 12/08/2019 13:43 [facility] [place] TYPE: Emergency COMPLAINT: - R LEG SWOLLEN 11/22/2019 13:38 [facility] [place] TYPE: Emergency COMPLAINT: - SORE THROAT, EAR PAIN DIAGNOSES: - Acute pharyngitis, unspecified - Allergy status to narcotic agent status - Other vermin exterminator (current) drug therapy - Nicotine dependence, unspecified, uncomplicated - Acute upper respiratory infection, unspecified 05/13/2019 08:11 [facility] [place] TYPE: Emergency COMPLAINT: - BLOODY NOSE DIAGNOSES: - Malignant neoplasm of unspecified ovary - Thrombocytopenia, unspecified - Nicotine dependence, unspecified, uncomplicated - Other pancytopenia - Unspecified asthma, uncomplicated - Allergy status to narcotic agent status - Epistaxis - Other longterm (current) drug therapy 04/23/2019 09:42 [facility] TYPE: Emergency DIAGNOSES: - Antineoplastic chemotherapy induced pancytopenia - Epistaxis - Epistaxis - Encounter for antineoplastic chemotherapy - Thrombocytopenia, unspecified 03/22/2019 17:01 [facility] TYPE: Emergency COMPLAINT: - DIFFICULTY BREATHING DIAGNOSES: - Allergy status to narcotic agent status - Personal history of malignant neoplasm of ovary - Nicotine dependence, unspecified, uncomplicated - Personal history of other malignant neoplasm of stomach - Chronic rhinitis - Personal history of malignant carcinoid tumor of lg int - Unspecified asthma, uncomplicated - Other vermin exterminator (current) drug therapy - Personal history of malignant neoplasm of liver - Shortness of breath INPATIENT VISIT TRACKING (12 MO.) [facility]13/2019 16:[facility] TYPE: General Medicine DIAGNOSES: - Epistaxis - Pancytopenia [id number]
== END 2019-12-08 15:01 | disposition home or self-care (01) ==
LOC: ED 13:42
DX: R60.0 Localized edema (principal); J45.909 Unspecified asthma, uncomplicated; F17.200 Nicotine dependence, unspecified, uncomplicated; Z88.5 Allergy status to narcotic agent; Z79.899 Other long term (current) drug therapy; Z79.51 Long term (current) use of inhaled steroids
CPT/HCPCS: 93971; 99285-25

== ENCOUNTER 2019-12-09 16:37 | Emergency (ER) | payer MEDICARE, OTHER ==
[~2019-12-09] VITALS: Ht 162.6 cm; Wt 81.7 kg
--- OUTSIDE RECORDS SUMMARY | ~2019-12-09 | XMS | Encounter Summary ---
Demographics + + + | Address | [address] | | | [place] [address] | + + + | Home Phone | | + + + | Preferred Language | Unknown | + + + | Marital Status | | + + + | Taoist Affiliation | Unknown | + + + | Race | Unknown | + + + | Ethnic Group | Unknown | + + + Author + + + | Author | [facility] | | | and [place] | + + + | Organization | [facility] | | | and [place] | + + + | Address | Unknown | + + + | Phone | Unavailable | + + + Support + + + + + | Name | Relationship | Address | Phone | + + + + + | Jared John | ECON | [address] | | | | | [place] [address] | | + + + + + | Emory Larios | ECON | Unknown | | + + + + + Care Team Providers + +------+ + | Care Pipe Manufacture Supervisor Name | Role | Phone | + +------+ + | Shannan Deng | PCP | | + +------+ + Encounter Details +--------+ + + + + | Date | Type | Department | Care Team | Description | +--------+ + + + + | 08/13/ | Hospital | [facility] | Yancy Clifford MD | 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) | | | | SERVICES [address] | [place] | (Primary Dx) | | | | [address] [place] | [id number] | | | | | [address] [place] | | | | | | [address] | Sushma Marquis | | | | | [phone] | Tiana RN | | +--------+ + + + + Social History + +-------+ +--------+------+ | Tobacco Use | Types | Packs/Day | Years | Date | | | | | Used | | + +-------+ +--------+------+ | Current Every Day | | 0.5 | | | | Smoker | | | | | + +-------+ +--------+------+ + +---+---+---+ | Smokeless Tobacco: | | | | | Never Used | | | | + +---+---+---+ + + +---------+ + | Alcohol Use | Drinks/Week | oz/Week | Comments | + + +---------+ + | Not Currently | | | | + + +---------+ + + + + | Sex Assigned at [...] + + documented as of this encounter Medications at Time of Discharge + + + +---------+ + + | Medication | Sig | Dispensed | Refills | Start | End Date | | | | | | Date | | + + + +---------+ + + | albuterol | Inhale 2 puffs into | | 0 | 09/29/20 | | | (PROVENTIL HFA) 90 | the lungs every 4 | | | 15 | | | mcg/puff inhaler | (four) hours as | | | | | | | needed for Wheezing. | | | | | + + + +---------+ + + | fluticasone | 1 spray by Nasal | | 0 | 09/27/20 | | | (FLONASE) 50 | route. | | | 16 | | | mcg/nasal spray | | | | | | + + + +---------+ + + | loratadine | Take 10 mg by mouth | | 0 | 04/16/20 | | | (CLARITIN) 10 mg | daily. | | | 19 | | | tablet | | | | | | + + + +---------+ + + | ondansetron | Take 8 mg by mouth | | 0 | 05/14/20 | | | (ZOFRAN) 8 MG tablet | every 8 (eight) | | | 18 | | | | hours as needed for | | | | | | | Nausea. | | | | | + + + +---------+ + + | polyethylene | Take 17 g by mouth | | 0 | 05/13/20 | | | glycol (MIRALAX) | daily. | | | 19 | | | packet | | | | | | + + + +---------+ + + | prochlorperazine | Take 1 tablet by | 30 | 3 | 01/15/20 | | | 10 mg tablet | mouth every 6 (six) | tablet | | 19 | | | | hours as needed. | | | | | + + + +---------+ + + | lactulose 10 g/15 | Take 15 mLs by mouth | 240 mL | 3 | 12/25/19 | | | mL solution | every 2 (two) hours | | | 19 | 9 | | | as needed | | | | | | | (constipation). | | | | | | | Until a good bowel | | | | | | | movement. | | | | | + + + +---------+ + + documented as of this encounter Progress Sushma Rosa RN - 08/13/2019 11:41 AM PDTPort accessed for lab draw. keri Grider accessed for tx. documented in this encounter Plan of Treatment +--------+ + + + + | Date | Type | Specialty | Care Team | Description | +--------+ + + + + | 12/17/ | Appointment | Infusion Therapy | Yancy Clifford MD | | | 2019 | | | [address] | | | | | | [place] | | | | | | [phone] | | | | | | | | +--------+ + + + + | 12/17/ | Office | Oncology | Yancy Clifford MD | | 2019 | Visit | | [address] | | | | | | [place] | | | | | | [address] | | | | | | | | +--------+ + + + + | 12/17/ | Appointment | Infusion Therapy | Yancy Clifford MD | | | 2019 | | | [address] | | | | | | [place] | | | | | | [address] | | | | | | | | +--------+ + + + + | 01/07/ | Appointment | Infusion Therapy | Yancy Clifford MD | | | 2019 | | | [address] | | | | | | [place] | | | | | | [address] | | | | | | | | +--------+ + + + + | 01/07/ | Office | Oncology | Yancy Clifford MD | | | 2019 | Visit | | [address] | | | | | | [place] | | | | | | [address] | | | | | | | | +--------+ + + + + | 01/07/ | Appointment | Infusion Therapy | Yancy Clifford MD | | | 2020 | | | [address] | | | | | | [place] | | | | | | [address] | | | | | | | | +--------+ + + + + + +------+--------+ + + | Name | Type | Priori | Associated Diagnoses | Order Schedule | | | | ty | | | + +------+--------+ + + | CBC with | Lab | STAT | Malignant neoplasm | 20 Occurrences | | Differential | | | of left ovary (HCC) | starting 08/13/2019 | | | | | | until 08/13/2020, 5 | | | | | | completed | + +------+--------+ + + | Comprehensive | Lab | STAT | Malignant neoplasm | 20 Occurrences | | Metabolic Panel | | | of left ovary (HCC) | starting 08/13/2019 | | | | | | until 08/13/2020, 5 | | | | | | completed | + +------+--------+ + + | Urinalysis with | Lab | Routin | Malignant neoplasm | 20 Occurrences | | Microscopic if | | e | of left ovary (HCC) | starting 08/13/2019 | | Indicated | | | | until 08/13/2020, 1 | | | | | | completed | + +------+--------+ + + | Protein/Creatinine | Lab | Routin | Malignant neoplasm | 20 Occurrences | | Ratio, Urine | | e | of left ovary (HCC) | starting 08/13/2019 | | | | | | until 08/13/2020, 1 | | | | | | completed | + +------+--------+ + + documented as of this encounter Procedures + +--------+ + + + | Procedure Name | Priori | Date/Time | Associated Diagnosis | Comments | | | ty | | | | + +--------+ + + + | URINALYSIS WITH | Routin | 08/13/2019 | | Results for this | | MICROSCOPIC IF | e | 8:46 AM | | procedure are in the | | INDICATED | | PDT | | results section. | + +--------+ + + + | URINALYSIS, | Routin | 08/13/2019 | | Results for this | | MICROSCOPIC ONLY | e | 8:46 AM | | procedure are in the | | | | PDT | | results section. | + +--------+ + + + | PROTEIN/CREATININE | Routin | 08/13/2019 | | Results for this | | RATIO, URINE | e | 8:46 AM | | procedure are in the | | | | PDT | | results section. | + +--------+ + + + | PROTEIN, URINE, | Routin | 08/13/2019 | | Results for this | | RANDOM | e | 8:46 AM | | procedure are in the | | | | PDT | | results section. | + +--------+ + + + | CREATININE, URINE, | Routin | 08/13/2019 | | Results for this | | RANDOM | e | 8:46 AM | | procedure are in the | | | | PDT | | results section. | + +--------+ + + + | CBC WITH | Routin | 08/13/2019 | | Results for this | | DIFFERENTIAL | e | 8:46 AM | | procedure are in the | | | | PDT | | results section. | + +--------+ + + + | COMPREHENSIVE | Routin | 08/13/2019 | | Results for this | | METABOLIC PANEL | e | 8:46 AM | | procedure are in the | | | | PDT | | results section. | + +--------+ + + + documented in this encounter Results Protein/Creatinine Ratio, Urine (11/27/2019 9:39 AM PST) + + + + + + | Component | Value | Ref Range | Performed | Pathologist | | | | | At | Signature | + + + + + + | PRO/CREA | 0.418Comment: Testing | | REFERENCE | | | RATIO,URINE | performed at [facility];[address] | | LAB | | | | [facility] | | [facility] | | | | [address];[place] [address] | | LABORATORY | | + + + + + + + + | Specimen | + + | Urine | + + + + + + + | Performing | Address | City/State/Zipcode | Phone Number | | Organization | | | | + + + + + | REFERENCE LAB | [address] [place] [address] | [place] [address] | [phone] | | [facility] | Blvd[address] | | | | LABORATORY | | | | + + + + + | REFERENCE LAB | [address] [place] [address] | [place] [address] | | | [facility] | Blvd[address] | | | | LABORATORY | | | | + + + + + Comprehensive Metabolic Panel (11/27/2019 9:39 AM PST) + + + + + + | Component | Value | Ref Range | Performed | Pathologist | | | | | At | Signature | + + + + + + | Na | 138Comment: Testing | 135 - 145 | REFERENCE | | | | performed at [facility];[address] | mmol/L | LAB | | | | [place] | | [facility] | | | | [address];[place] [address] | | LABORATORY | | + + + + + + | K | 4.3Comment: Testing | 3.5 - 4.9 | REFERENCE | | | | performed at [facility];[address] | mmol/L | LAB | | | | [place] | | [facility] | | | | [address];[place] [address] | | LABORATORY | | + + + + + + | Cl | 106Comment: Testing | 99 - 109 mmol/L | REFERENCE | | | | performed at [facility];[address] | | LAB | | | | [place] | | [facility] | | | | [address];[place] [address] | | LABORATORY | | + + + + + + | CO2 | 27Comment: Testing | 23 - 32 mmol/L | REFERENCE | | | | Performed at [facility], [address] | | LAB | | | | [address] | | [facility] | | | | [address], [place] | | LABORATORY | | | | [address] | | | | + + + + + + | Anion Gap | 9Comment: Testing | 5 - 20 mmol/L | REFERENCE | | | | performed at [facility];[address] | | LAB | | | | [place] | | [facility] | | | | [address];[place] [address] | | LABORATORY | | + + + + + + | Glucose | 135 (H) | 65 - 99 mg/dL | REFERENCE | | | | | | LAB | | | | | | [facility] | | | | | | LABORATORY | | + + + + + + | BUN | 10 | 8 - 25 mg/dL | REFERENCE | | | | | | LAB | | | | | | [facility] | | | | | | LABORATORY | | + + + + + + | Creatinine | 0.75 | 0.50 - 1.00 | REFERENCE | | | | | mg/dL | LAB | | | | | | [facility] | | | | | | LABORATORY | | + + + + + + | BUN/Creatin | 13 | | REFERENCE | | | ine Ratio | | | LAB | | | | | | [facility] | | | | | | LABORATORY | | + + + + + + | Calcium | 9.6 | 8.5 - 10.5 | REFERENCE | | | | | mg/dL | LAB | | | | | | [facility] | | | | | | LABORATORY | | + + + + + + | Protein, | 6.8 | 6.3 - 8.2 g/dL | REFERENCE | | | Total | | | LAB | | | | | | [facility] | | | | | | LABORATORY | | + + + + + + | Albumin | 3.5 | 3.3 - 4.8 g/dL | REFERENCE | | | | | | LAB | | | | | | [facility] | | | | | | LABORATORY | | + + + + + + | Globulin | 3.3 | 1.3 - 4.9 g/dL | REFERENCE | | | | | | LAB | | | | | | [facility] | | | | | | LABORATORY | | + + + + + + | A/G Ratio | 1.1 | 1.0 - 2.4 | REFERENCE | | | | | | LAB | | | | | | [facility] | | | | | | LABORATORY | | + + + + + + | BILIRUBIN, | 0.4 | 0.1 - 1.5 mg/dL | REFERENCE | | | TOTAL | | | LAB | | | | | | [facility] | | | | | | LABORATORY | | + + + + + + | ALK PHOS | 70 | 35 - 115 U/L | REFERENCE | | | | | | LAB | | | | | | [facility] | | | | | | LABORATORY | | + + + + + + | AST | 15 | 10 - 45 U/L | REFERENCE | | | | | | LAB | | | | | | [facility] | | | | | | LABORATORY | | + + + + + + | ALT | 16 | 10 - 65 U/L | REFERENCE | | | | | | LAB | | | | | | [facility] | | | | | | LABORATORY | | + + + + + + | Estimated | >60Comment: GFR <60: | >60 | REFERENCE | | | GFR | CHRONIC KIDNEY DISEASE, | mL/min/1.73m2 | LAB | | | | IF FOUND OVER A 3 MONTH | | [facility] | | | | PERIOD.GFR <15: KIDNEY | | LABORATORY | | | | FAILURE.FOR | | | | | | AMERICANS, MULTIPLY THE | | | | | | CALCULATED GFR BY | | | | | | 1.210.This eGFR is | | | | | | calculated using the | | | | | | MDRD IDMS traceable | | | | | | equation.Testing | | | | | | Performed at [facility], [address] | | | | | | [address] | | | | | | [address], [place] | | | | | | [address] | | | | + + + + + + + + | Specimen | + + | Blood | + + + + + + + | Performing | Address | City/State/Zipcode | Phone Number | | Organization | | | | + + + + + | REFERENCE LAB | [address] | [place] [address] | [phone] | | [facility] | Blvd[address] | | | | LABORATORY | | | | + + + + + | REFERENCE LAB | [address] [facility] | [place] [address] | | | [facility] | Blvd[address] | | | | LABORATORY | | | | + + + + + CBC with Differential (11/27/2019 9:39 AM PST) + + + + + + | Component | Value | Ref Range | Performed | Pathologist | | | | | At | Signature | + + + + + + | WBC | 8.16 | 3.80 - 11.00 | REFERENCE | | | | | K/uL | LAB | | | | | | [facility] | | | | | | LABORATORY | | + + + + + + | RBC | 4.85 | 3.70 - 5.10 | REFERENCE | | | | | M/uL | LAB | | | | | | [facility] | | | | | | LABORATORY | | + + + + + + | Hemoglobin | 14.0 | 11.3 - 15.5 | REFERENCE | | | | | g/dL | LAB | | | | | | [facility] | | | | | | LABORATORY | | + + + + + + | Hematocrit | 42.7 | 34.0 - 46.0 % | REFERENCE | | | | | | LAB | | | | | | [facility] | | | | | | LABORATORY | | + + + + + + | MCV | 88.1 | 80.0 - 100.0 fl | REFERENCE | | | | | | LAB | | | | | | [facility] | | | | | | LABORATORY | | + + + + + + | MCH | 28.8 | 27.0 - 34.0 pg | REFERENCE | | | | | | LAB | | | | | | [facility] | | | | | | LABORATORY | | + + + + + + | MCHC | 32.7 | 32.0 - 35.5 | REFERENCE | | | | | g/dL | LAB | | | | | | [facility] | | | | | | LABORATORY | | + + + + + + | RDW-SD | 55.6 (H) | 37 - 53 fl | REFERENCE | | | | | | LAB | | | | | | [facility] | | | | | | LABORATORY | | + + + + + + | Platelet | 278 | 150 - 400 K/uL | REFERENCE | | | Count | | | LAB | | | | | | [facility] | | | | | | LABORATORY | | + + + + + + | MPV | 7.5 | fl | REFERENCE | | | | | | LAB | | | | | | [facility] | | | | | | LABORATORY | | + + + + + + | Diff Type | AUTOMATED | | REFERENCE | | | | | | LAB | | | | | | [facility] | | | | | | LABORATORY | | + + + + + + | % | 62.04 | % | REFERENCE | | | Neutrophils | | | LAB | | | | | | [facility] | | | | | | LABORATORY | | + + + + + + | % | 29.27 | % | REFERENCE | | | Lymphocytes | | | LAB | | | | | | [facility] | | | | | | LABORATORY | | + + + + + + | Monocyte % | 5.79 | % | REFERENCE | | | | | | LAB | | | | | | [facility] | | | | | | LABORATORY | | + + + + + + | Eosinophils | 1.59 | % | REFERENCE | | | % | | | LAB | | | | | | [facility] | | | | | | LABORATORY | | + + + + + + | Basophils % | 1.31 | % | REFERENCE | | | | | | LAB | | | | | | [facility] | | | | | | LABORATORY | | + + + + + + | Neutrophils | 5.06 | 1.90 - 7.40 | REFERENCE | | | , Absolute | | K/uL | LAB | | | | | | [facility] | | | | | | LABORATORY | | + + + + + + | Absolute | 2.39 | 1.00 - 3.90 | REFERENCE | | | Lymphocytes | | K/uL | LAB | | | | | | [facility] | | | | | | LABORATORY | | + + + + + + | Absolute | 0.47 | 0.00 - 0.80 | REFERENCE | | | Monocytes | | K/uL | LAB | | | | | | [facility] | | | | | | LABORATORY | | + + + + + + | Eosinophils | 0.13 | 0.00 - 0.50 | REFERENCE | | | , Absolute | | K/uL | LAB | | | | | | [facility] | | | | | | LABORATORY | | + + + + + + | Basophils, | 0.11 (H) | 0.00 - 0.10 | REFERENCE | | | Absolute | | K/uL | LAB | | | | | | [facility] | | | | | | LABORATORY | | + + + + + + | RBC | 1+Comment: ANISO | | REFERENCE | | | Morphology | | | LAB | | | | | | [facility] | | | | | | LABORATORY | | + + + + + + | Platelet | ADEQUATEComment: Testing | | REFERENCE | | | Estimate | Performed at [facility], [address] | | LAB | | | [address] | | [facility] | | | | [address], [place] | | LABORATORY | | | | [address] | | | | + + + + + + + + | Specimen | + + | Blood | + + + + + + + | Performing | Address | City/State/Zipcode | Phone Number | | Organization | | | | + + + + + | REFERENCE LAB | [address] [facility] | [place] [address] | [phone] | | [facility] | Blvd[address] | | | | LABORATORY | | | | + + + + + | REFERENCE LAB | [address] [facility] | [place] [address] | | | [facility] | Blvd[address] | | | | LABORATORY | | | | + + + + + Comprehensive Metabolic Panel (11/05/2019 1:17 PM PST) + + + + + + | Component | Value | Ref Range | Performed | Pathologist | | | | | At | Signature | + + + + + + | Na | 139 | 135 - 145 | REFERENCE | | | | | mmol/L | LAB | | | | | | [facility] | | | | | | LABORATORY | | + + + + + + | K | 4.3 | 3.5 - 4.9 | REFERENCE | | | | | mmol/L | LAB | | | | | | [facility] | | | | | | LABORATORY | | + + + + + + | Cl | 108 | 99 - 109 mmol/L | REFERENCE | | | | | | LAB | | | | | | [facility] | | | | | | LABORATORY | | + + + + + + | CO2 | 26 | 23 - 32 mmol/L | REFERENCE | | | | | | LAB | | | | | | [facility] | | | | | | LABORATORY | | + + + + + + | Anion Gap | 9 | 5 - 20 mmol/L | REFERENCE | | | | | | LAB | | | | | | [facility] | | | | | | LABORATORY | | + + + + + + | Glucose | 117 (H) | 65 - 99 mg/dL | REFERENCE | | | | | | LAB | | | | | | [facility] | | | | | | LABORATORY | | + + + + + + | BUN | 15 | 8 - 25 mg/dL | REFERENCE | | | | | | LAB | | | | | | [facility] | | | | | | LABORATORY | | + + + + + + | Creatinine | 0.7 | 0.50 - 1.00 | REFERENCE | | | | | mg/dL | LAB | | | | | | [facility] | | | | | | LABORATORY | | + + + + + + | BUN/Creatin | 21 | | REFERENCE | | | ine Ratio | | | LAB | | | | | | [facility] | | | | | | LABORATORY | | + + + + + + | Calcium | 9.4 | 8.5 - 10.5 | REFERENCE | | | | | mg/dL | LAB | | | | | | [facility] | | | | | | LABORATORY | | + + + + + + | Protein, | 8.5 (H) | 6.3 - 8.2 g/dL | REFERENCE | | | Total | | | LAB | | | | | | [facility] | | | | | | LABORATORY | | + + + + + + | Albumin | 3.1 (L) | 3.3 - 4.8 g/dL | REFERENCE | | | | | | LAB | | | | | | [facility] | | | | | | LABORATORY | | + + + + + + | Globulin | 5.4 (H) | 1.3 - 4.9 g/dL | REFERENCE | | | | | | LAB | | | | | | [facility] | | | | | | LABORATORY | | + + + + + + | A/G Ratio | 0.6 (L) | 1.0 - 2.4 | REFERENCE | | | | | | LAB | | | | | | [facility] | | | | | | LABORATORY | | + + + + + + | BILIRUBIN, | 0.4 | 0.1 - 1.5 mg/dL | REFERENCE | | | TOTAL | | | LAB | | | | | | [facility] | | | | | | LABORATORY | | + + + + + + | ALK PHOS | 61 | 35 - 115 U/L | REFERENCE | | | | | | LAB | | | | | | [facility] | | | | | | LABORATORY | | + + + + + + | AST | 11 | 10 - 45 U/L | REFERENCE | | | | | | LAB | | | | | | [facility] | | | | | | LABORATORY | | + + + + + + | ALT | 17 | 10 - 65 U/L | REFERENCE | | | | | | LAB | | | | | | [facility] | | | | | | LABORATORY | | + + + + + + | Estimated | >60Comment: GFR <60: | >60 | REFERENCE | | | GFR | CHRONIC KIDNEY DISEASE, | mL/min/1.73m2 | LAB | | | | IF FOUND OVER A 3 MONTH | | [facility] | | | | PERIOD.GFR <15: KIDNEY | | LABORATORY | | | | FAILURE.FOR | | | | | | AMERICANS, MULTIPLY THE | | | | | | CALCULATED GFR BY | | | | | | 1.210.This eGFR is | | | | | | calculated using the | | | | | | MDRD IDMS traceable | | | | | | equation.Testing | | | | | | performed at [facility];[address] | | | | | | [facility] | | | | | | [facility];[place] [address] | | | | | | | | | | + + + + + + + + | Specimen | + + | Blood | + + + + + + + | Performing | Address | City/State/Zipcode | Phone Number | | Organization | | | | + + + + + | REFERENCE LAB | [address] [place] [address] | [place] [address] | [phone] | | [facility] | Blvd[address] | | | | LABORATORY | | | | + + + + + | REFERENCE LAB | [address] [facility] [address] | [place] [address] | | | [facility] | Blvd[address] | | | | LABORATORY | | | | + + + + + CBC with Differential (11/05/2019 1:17 PM PST) + + + + + + | Component | Value | Ref Range | Performed | Pathologist | | | | | At | Signature | + + + + + + | WBC | 7.80 | 3.80 - 11.00 | REFERENCE | | | | | K/uL | LAB | | | | | | [facility] | | | | | | LABORATORY | | + + + + + + | RBC | 4.88 | 3.70 - 5.10 | REFERENCE | | | | | M/uL | LAB | | | | | | [facility] | | | | | | LABORATORY | | + + + + + + | Hemoglobin | 14.6 | 11.3 - 15.5 | REFERENCE | | | | | g/dL | LAB | | | | | | [facility] | | | | | | LABORATORY | | + + + + + + | Hematocrit | 43.2 | 34.0 - 46.0 % | REFERENCE | | | | | | LAB | | | | | | [facility] | | | | | | LABORATORY | | + + + + + + | MCV | 88.6 | 80.0 - 100.0 fl | REFERENCE | | | | | | LAB | | | | | | [facility] | | | | | | LABORATORY | | + + + + + + | MCH | 29.9 | 27.0 - 34.0 pg | REFERENCE | | | | | | LAB | | | | | | [facility] | | | | | | LABORATORY | | + + + + + + | MCHC | 33.7 | 32.0 - 35.5 | REFERENCE | | | | | g/dL | LAB | | | | | | [facility] | | | | | | LABORATORY | | + + + + + + | RDW-SD | 55.6 (H) | 37 - 53 fl | REFERENCE | | | | | | LAB | | | | | | [facility] | | | | | | LABORATORY | | + + + + + + | Platelet | 208 | 150 - 400 K/uL | REFERENCE | | | Count | | | LAB | | | | | | [facility] | | | | | | LABORATORY | | + + + + + + | MPV | 7.2 | fl | REFERENCE | | | | | | LAB | | | | | | [facility] | | | | | | LABORATORY | | + + + + + + | Diff Type | AUTOMATED | | REFERENCE | | | | | | LAB | | | | | | [facility] | | | | | | LABORATORY | | + + + + + + | % | 62.72 | % | REFERENCE | | | Neutrophils | | | LAB | | | | | | [facility] | | | | | | LABORATORY | | + + + + + + | % | 29.70 | % | REFERENCE | | | Lymphocytes | | | LAB | | | | | | [facility] | | | | | | LABORATORY | | + + + + + + | Monocyte % | 5.66 | % | REFERENCE | | | | | | LAB | | | | | | [facility] | | | | | | LABORATORY | | + + + + + + | Eosinophils | 1.60 | % | REFERENCE | | | % | | | LAB | | | | | | [facility] | | | | | | [facility] | | + + + + + + | Basophils % | 0.32 | % | REFERENCE | | | | | | LAB | | | | | | [facility] | | | | | | [facility] | | + + + + + + | Neutrophils | 4.89 | 1.90 - 7.40 | REFERENCE | | | , Absolute | | K/uL | LAB | | | | | | [facility] | | | | | | [facility] | | + + + + + + | Absolute | 2.32 | 1.00 - 3.90 | REFERENCE | | | Lymphocytes | | K/uL | LAB | | | | | | [facility] | | | | | | [facility] | | + + + + + + | Absolute | 0.44 | 0.00 - 0.80 | REFERENCE | | | Monocytes | | K/uL | LAB | | | | | | [facility] | | | | | | [facility] | | + + + + + + | Eosinophils | 0.13 | 0.00 - 0.50 | REFERENCE | | | , Absolute | | K/uL | LAB | | | | | | [facility] | | | | | | [facility] | | + + + + + + | Basophils, | 0.03Comment: Testing | 0.00 - 0.10 | REFERENCE | | | Absolute | Performed at [facility], [address] | [address] | LAB | | | | [address] | | [facility] | | | | [address] | | LABORATORY | | | | [id number] | | | | + + + + + + + + | Specimen | + + | Blood | + + + + + + + | Performing | Address | City/State/Zipcode | Phone Number | | Organization | | | | + + + + + | REFERENCE LAB | [address] [place] [address] | [place] [address] | [phone] | | [facility] | Blvd[address] | | | | LABORATORY | | | | + + + + + | [facility] | [address] [place] [address] | [place] [address] | | | [facility] | Blvd[address] | | | | LABORATORY | | | | + + + + + Urinalysis with Microscopic if Indicated (10/15/2019 8:55 AM PST) + + + + + + | Component | Value | Ref Range | Performed | Pathologist | | | | | At | Signature | + + + + + + | Color, UA | YELLOW | | REFERENCE | | | | | | LAB | | | | | | [facility] | | | | | | [facility] | | + + + + + + | Clarity, UA | HAZY | | REFERENCE | | | | | | LAB | | | | | | [facility] | | | | | | [facility] | | + + + + + + | Specific | 1.025 | 1.002 - 1.030 | REFERENCE | | | [place], | | | LAB | | | Urine | | | [facility] | | | | | | LABORATORY | | + + + + + + | Leukocyte | NEGATIVE | NEG | REFERENCE | | | esterase, | | | LAB | | | UA | | | [facility] | | | | | | LABORAT[facility] | | + + + + + + | Nitrite, UA | NEGATIVE | NEG | REFERENCE | | | | | | LAB | | | | | | [facility] | | | | | | [facility] | | + + + + + + | Urobilinoge | 0.2 | <1.1 mg/dL | REFERENCE | | | n, Ur | | | LAB | | | | | | [facility] | | | | | | LABORATORY | | + + + + + + | Protein, | 100 (A) | NEG mg/dL | REFERENCE | | | Urine | | | LAB | | | (mg/dL) | | | [facility] | | | | | | LABORATORY | | + + + + + + | pH, Urine | 5.5 | 5.0 - 8.0 | REFERENCE | | | | | | LAB | | | | | | [facility] | | | | | | LABORAT[facility] | | + + + + + + | Blood, UA | NEGATIVE | NEG | REFERENCE | | | | | | LAB | | | | | | [facility] | | | | | | LABOR[facility] | | + + + + + + | Ketones, UA | NEGATIVE | NEG mg/dL | REFERENCE | | | | | | LAB | | | | | | [facility] | | | | | | LABOR[facility] | | + + + + + + | Bilirubin, | NEGATIVE | NEG | REFERENCE | | | UA | | | LAB | | | | | | [facility] | | | | | | LABORATORY | | + + + + + + | Glucose, Ur | NEGATIVEComment: Testing | NEG mg/dL | REFERENCE | | | | Performed at [facility], [address] | LAB | | | | [address] | | [facility] | | | | [address], [place] | | LABORATORY | | | | [address] | | | | + + + + + + + + | Specimen | + + | Urine | + + + + + + + | Performing | Address | City/State/Zipcode | Phone Number | | Organization | | | | + + + + + | REFERENCE LAB | [address] [place], [place] [address] | [place] [address] | [phone] | | [facility] | Blvd[address] | | | | LABORATORY | | | | + + + + + | REFERENCE LAB | [address] [place], [place] [address] | [place] [address] | | | [facility] | Blvd. | | | | LABORATORY | | | | + + + + + Comprehensive Metabolic Panel (10/15/2019 8:55 AM PST) + + + + + + | Component | Value | Ref Range | Performed | Pathologist | | | | | At | Signature | + + + + + + | Na | 138Comment: Testing | 135 - 145 | REFERENCE | | | | performed at [facility];[address] | mmol/L | LAB | | | | [place] | | [facility] | | | | [address];[place] [address] | | LABORATORY | | + + + + + + | K | 4.3Comment: Testing | 3.5 - 4.9 | REFERENCE | | | | performed at [facility];[address] | mmol/L | LAB | | | | [place] | | [facility] | | | | [address];[place] [address] | | LABORATORY | | + + + + + + | Cl | 105Comment: Testing | 99 - 109 mmol/L | REFERENCE | | | | performed at [facility];[address] | | LAB | | | | [place] | | [facility] | | | | [address];[place] [address] | | LABORATORY | | + + + + + + | CO2 | 26Comment: Testing | 23 - 32 mmol/L | REFERENCE | | | | Performed at [facility], [address] | | LAB | | | | [address] | | [facility] | | | | [address], [place] | | LABORATORY | | | | [address] | | | | + + + + + + | Anion Gap | 11Comment: Testing | 5 - 20 mmol/L | REFERENCE | | | | performed at [facility];[address] | | LAB | | | | [address] | | [facility] | | | | [address];[place] [address] | | LABORATORY | | + + + + + + | Glucose | 145 (H) | 65 - 99 mg/dL | REFERENCE | | | | | | LAB | | | | | | [facility] | | | | | | LABORATORY | | + + + + + + | BUN | 13 | 8 - 25 mg/dL | REFERENCE | | | | | | LAB | | | | | | [facility] | | | | | | LABORATORY | | + + + + + + | Creatinine | 0.77 | 0.50 - 1.00 | REFERENCE | | | | | mg/dL | LAB | | | | | | [facility] | | | | | | LABORATORY | | + + + + + + | BUN/Creatin | 17 | | REFERENCE | | | ine Ratio | | | LAB | | | | | | [facility] | | | | | | LABORATORY | | + + + + + + | Calcium | 9.4 | 8.5 - 10.5 | REFERENCE | | | | | mg/dL | LAB | | | | | | [facility] | | | | | | LABORATORY | | + + + + + + | Protein, | 7.1 | 6.3 - 8.2 g/dL | REFERENCE | | | Total | | | LAB | | | | | | [facility] | | | | | | LABORATORY | | + + + + + + | Albumin | 3.8 | 3.3 - 4.8 g/dL | REFERENCE | | | | | | LAB | | | | | | [facility] | | | | | | LABORATORY | | + + + + + + | Globulin | 3.3 | 1.3 - 4.9 g/dL | REFERENCE | | | | | | LAB | | | | | | [facility] | | | | | | LABORATORY | | + + + + + + | A/G Ratio | 1.2 | 1.0 - 2.4 | REFERENCE | | | | | | LAB | | | | | | [facility] | | | | | | LABORATORY | | + + + + + + | BILIRUBIN, | 0.5 | 0.1 - 1.5 mg/dL | REFERENCE | | | TOTAL | | | LAB | | | | | | [facility] | | | | | | LABORATORY | | + + + + + + | ALK PHOS | 66 | 35 - 115 U/L | REFERENCE | | | | | | LAB | | | | | | [facility] | | | | | | LABORATORY | | + + + + + + | AST | 12 | 10 - 45 U/L | REFERENCE | | | | | | LAB | | | | | | [facility] | | | | | | LABORATORY | | + + + + + + | ALT | 13 | 10 - 65 U/L | REFERENCE | | | | | | LAB | | | | | | [facility] | | | | | | LABORATORY | | + + + + + + | Estimated | >60Comment: GFR <60: | >60 | REFERENCE | | | GFR | CHRONIC KIDNEY DISEASE, | mL/min/1.73m2 | LAB | | | | IF FOUND OVER A 3 MONTH | | [facility] | | | | PERIOD.GFR <15: KIDNEY | | LABORATORY | | | | FAILURE.FOR | | | | | | AMERICANS, MULTIPLY THE | | | | | | CALCULATED GFR BY | | | | | | 1.210.This eGFR is | | | | | | calculated using the | | | | | | MDRD IDMS traceable | | | | | | equation.Testing | | | | | | Performed at [facility], [address] | | | | | | [address] | | | | | | [address], [place] | | | | | | [address] | | | | + + + + + + + + | Specimen | + + | Blood | + + + + + + + | Performing | Address | City/State/Zipcode | Phone Number | | Organization | | | | + + + + + | REFERENCE LAB | [address] | [place] [address] | [phone] | | [facility] | Blvd[address] | | | | LABORATORY | | | | + + + + + | REFERENCE LAB | [address] | [place] [address] | | | [facility] | Blvd[address] | | | | LABORATORY | | | | + + + + + CBC with Differential (10/15/2019 8:55 AM PST) + + + + + + | Component | Value | Ref Range | Performed | Pathologist | | | | | At | Signature | + + + + + + | WBC | 7.27 | 3.80 - 11.00 | REFERENCE | | | | | K/uL | LAB | | | | | | [facility] | | | | | | LABORATORY | | + + + + + + | RBC | 5.07 | 3.70 - 5.10 | REFERENCE | | | | | M/uL | LAB | | | | | | [facility] | | | | | | LABORATORY | | + + + + + + | Hemoglobin | 15.0 | 11.3 - 15.5 | REFERENCE | | | | | g/dL | LAB | | | | | | [facility] | | | | | | LABORATORY | | + + + + + + | Hematocrit | 45.0 | 34.0 - 46.0 % | REFERENCE | | | | | | LAB | | | | | | [facility] | | | | | | LABORATORY | | + + + + + + | MCV | 88.8 | 80.0 - 100.0 fl | REFERENCE | | | | | | LAB | | | | | | [facility] | | | | | | LABORATORY | | + + + + + + | MCH | 29.6 | 27.0 - 34.0 pg | REFERENCE | | | | | | LAB | | | | | | [facility] | | | | | | LABORATORY | | + + + + + + | MCHC | 33.4 | 32.0 - 35.5 | REFERENCE | | | | | g/dL | LAB | | | | | | [facility] | | | | | | LABORATORY | | + + + + + + | RDW-SD | 56.4 (H) | 37 - 53 fl | REFERENCE | | | | | | LAB | | | | | | [facility] | | | | | | LABORATORY | | + + + + + + | Platelet | 216 | 150 - 400 K/uL | REFERENCE | | | Count | | | LAB | | | | | | [facility] | | | | | | LABORATORY | | + + + + + + | MPV | 7.1 | fl | REFERENCE | | | | | | LAB | | | | | | [facility] | | | | | | LABORATORY | | + + + + + + | Diff Type | AUTOMATED | | REFERENCE | | | | | | LAB | | | | | | [facility] | | | | | | LABORATORY | | + + + + + + | % | 64.63 | % | REFERENCE | | | Neutrophils | | | LAB | | | | | | [facility] | | | | | | LABORATORY | | + + + + + + | % | 28.04 | % | REFERENCE | | | Lymphocytes | | | LAB | | | | | | [facility] | | | | | | LABORATORY | | + + + + + + | Monocyte % | 5.24 | % | REFERENCE | | | | | | LAB | | | | | | [facility] | | | | | | LABORATORY | | + + + + + + | Eosinophils | 1.18 | % | REFERENCE | | | % | | | LAB | | | | | | [facility] | | | | | | LABORATORY | | + + + + + + | Basophils % | 0.91 | % | REFERENCE | | | | | | LAB | | | | | | [facility] | | | | | | LABORATORY | | + + + + + + | Neutrophils | 4.70 | 1.90 - 7.40 | REFERENCE | | | , Absolute | | K/uL | LAB | | | | | | [facility] | | | | | | LABORATORY | | + + + + + + | Absolute | 2.04 | 1.00 - 3.90 | REFERENCE | | | Lymphocytes | | K/uL | LAB | | | | | | [facility] | | | | | | LABORATORY | | + + + + + + | Absolute | 0.38 | 0.00 - 0.80 | REFERENCE | | | Monocytes | | K/uL | LAB | | | | | | [facility] | | | | | | LABORATORY | | + + + + + + | Eosinophils | 0.09 | 0.00 - 0.50 | REFERENCE | | | , Absolute | | K/uL | LAB | | | | | | [facility] | | | | | | LABORATORY | | + + + + + + | Basophils, | 0.07Comment: Testing | 0.00 - 0.10 | REFERENCE | | | Absolute | Performed at [facility], [address] | K/uL | LAB | | | | [address] | | [facility] | | | | [address], [place] | | LABORATORY | | | | [address] | | | | + + + + + + + + | Specimen | + + | Blood | + + + + + + + | Performing | Address | City/State/Zipcode | Phone Number | | Organization | | | | + + + + + | REFERENCE LAB | [address] | [place] [address] | [phone] | | [facility] | Blvd[address] | | | | LABORATORY | | | | + + + + + | REFERENCE LAB | [address] | [place] [address] | | | [facility] | Blvd[address] | | | | LABORATORY | | | | + + + + + Comprehensive Metabolic Panel (09/24/2019 1:14 PM PDT) + + + + + + | Component | Value | Ref Range | Performed | Pathologist | | | | | At | Signature | + + + + + + | Na | 136Comment: Testing | 135 - 145 | REFERENCE | | | | performed at [facility];[address] | mmol/L | LAB | | | | [place] | | [facility] | | | | [address];[place] [address] | | LABORATORY | | + + + + + + | K | 4.1Comment: Testing | 3.5 - 4.9 | REFERENCE | | | | performed at [facility];[address] | mmol/L | LAB | | | | [place] | | [facility] | | | | [address];[place] [address] | | LABORATORY | | + + + + + + | Cl | 104Comment: Testing | 99 - 109 mmol/L | REFERENCE | | | | performed at [facility];[address] | | LAB | | | | [place] | | [facility] | | | | [address];[place] [address] | | LABORATORY | | + + + + + + | CO2 | 26Comment: Testing | 23 - 32 mmol/L | REFERENCE | | | | Performed at [facility], [address] | | LAB | | | | [address] | | [facility] | | | | [address], [place] | | LABORATORY | | | | [address] | | | | + + + + + + | Anion Gap | 10Comment: Testing | 5 - 20 mmol/L | REFERENCE | | | | performed at [facility];[address] | | LAB | | | | [place] | | [facility] | | | | [address];[place] [address] | | LABORATORY | | + + + + + + | Glucose | 182 (H) | 65 - 99 mg/dL | REFERENCE | | | | | | LAB | | | | | | [facility] | | | | | | LABORATORY | | + + + + + + | BUN | 13 | 8 - 25 mg/dL | REFERENCE | | | | | | LAB | | | | | | [facility] | | | | | | LABORATORY | | + + + + + + | Creatinine | 0.75 | 0.50 - 1.00 | REFERENCE | | | | | mg/dL | LAB | | | | | | [facility] | | | | | | LABORATORY | | + + + + + + | BUN/Creatin | 17 | | REFERENCE | | | ine Ratio | | | LAB | | | | | | [facility] | | | | | | LABORATORY | | + + + + + + | Calcium | 9.6 | 8.5 - 10.5 | REFERENCE | | | | | mg/dL | LAB | | | | | | [facility] | | | | | | LABORATORY | | + + + + + + | Protein, | 7.2 | 6.3 - 8.2 g/dL | REFERENCE | | | Total | | | LAB | | | | | | [facility] | | | | | | LABORATORY | | + + + + + + | Albumin | 3.8 | 3.3 - 4.8 g/dL | REFERENCE | | | | | | LAB | | | | | | [facility] | | | | | | LABORATORY | | + + + + + + | Globulin | 3.4 | 1.3 - 4.9 g/dL | REFERENCE | | | | | | LAB | | | | | | [facility] | | | | | | LABORATORY | | + + + + + + | A/G Ratio | 1.1 | 1.0 - 2.4 | REFERENCE | | | | | | LAB | | | | | | [facility] | | | | | | LABORATORY | | + + + + + + | BILIRUBIN, | 0.5 | 0.1 - 1.5 mg/dL | REFERENCE | | | TOTAL | | | LAB | | | | | | [facility] | | | | | | LABORATORY | | + + + + + + | ALK PHOS | 73 | 35 - 115 U/L | REFERENCE | | | | | | LAB | | | | | | [facility] | | | | | | LABORATORY | | + + + + + + | AST | 13 | 10 - 45 U/L | REFERENCE | | | | | | LAB | | | | | | [facility] | | | | | | LABORATORY | | + + + + + + | ALT | 12 | 10 - 65 U/L | REFERENCE | | | | | | LAB | | | | | | [facility] | | | | | | LABORATORY | | + + + + + + | Estimated | >60Comment: GFR <60: | >60 | REFERENCE | | | GFR | CHRONIC KIDNEY DISEASE, | mL/min/1.73m2 | LAB | | | | IF FOUND OVER A 3 MONTH | | [facility] | | | | PERIOD.GFR <15: KIDNEY | | LABORATORY | | | | FAILURE.FOR | | | | | | AMERICANS, MULTIPLY THE | | | | | | CALCULATED GFR BY | | | | | | 1.210.This eGFR is | | | | | | calculated using the | | | | | | MDRD IDCA traceable | | | | | | equation.Testing | | | | | | Performed at [facility], [address] | | | | | | [address] [facility] | | | | | | [address], [place] | | | | | | [address] | | | | + + + + + + + + | Specimen | + + | Blood | + + + + + + + | Performing | Address | City/State/Zipcode | Phone Number | | Organization | | | | + + + + + | REFERENCE LAB | [address] | [place] [address] | [phone] | | [facility] | Blvd[address] | | | | LABORATORY | | | | + + + + + | REFERENCE LAB | [address] | [place] [address] | | | [facility] | Blvd[address] | | | | LABORATORY | | | | + + + + + CBC with Differential (09/24/2019 1:14 PM PDT) + + + + + + | Component | Value | Ref Range | Performed | Pathologist | | | | | At | Signature | + + + + + + | WBC | 8.58 | 3.80 - 11.00 | REFERENCE | | | | | K/uL | LAB | | | | | | [facility] | | | | | | LABORATORY | | + + + + + + | RBC | 4.95 | 3.70 - 5.10 | REFERENCE | | | | | M/uL | LAB | | | | | | [facility] | | | | | | LABORATORY | | + + + + + + | Hemoglobin | 15.1 | 11.3 - 15.5 | REFERENCE | | | | | g/dL | LAB | | | | | | [facility] | | | | | | LABORATORY | | + + + + + + | Hematocrit | 43.9 | 34.0 - 46.0 % | REFERENCE | | | | | | LAB | | | | | | [facility] | | | | | | LABORATORY | | + + + + + + | MCV | 88.7 | 80.0 - 100.0 fl | REFERENCE | | | | | | LAB | | | | | | [facility] | | | | | | LABORATORY | | + + + + + + | MCH | 30.6 | 27.0 - 34.0 pg | REFERENCE | | | | | | LAB | | | | | | [facility] | | | | | | LABORATORY | | + + + + + + | MCHC | 34.5 | 32.0 - 35.5 | REFERENCE | | | | | g/dL | LAB | | | | | | [facility] | | | | | | LABORATORY | | + + + + + + | RDW-SD | 54.7 (H) | 37 - 53 fl | REFERENCE | | | | | | LAB | | | | | | [facility] | | | | | | LABORATORY | | + + + + + + | Platelet | 225 | 150 - 400 K/uL | REFERENCE | | | Count | | | LAB | | | | | | [facility] | | | | | | LABORATORY | | + + + + + + | MPV | 7.3 | fl | REFERENCE | | | | | | LAB | | | | | | [facility] | | | | | | LABORATORY | | + + + + + + | Diff Type | AUTOMATED | | REFERENCE | | | | | | LAB | | | | | | [facility] | | | | | | LABORATORY | | + + + + + + | % | 63.79 | % | REFERENCE | | | Neutrophils | | | LAB | | | | | | [facility] | | | | | | LABORATORY | | + + + + + + | % | 28.58 | % | REFERENCE | | | Lymphocytes | | | LAB | | | | | | [facility] | | | | | | LABORATORY | | + + + + + + | Monocyte % | 5.44 | % | REFERENCE | | | | | | LAB | | | | | | [facility] | | | | | | LABORATORY | | + + + + + + | Eosinophils | 1.11 | % | REFERENCE | | | % | | | LAB | | | | | | [facility] | | | | | | LABORATORY | | + + + + + + | Basophils % | 1.08 | % | REFERENCE | | | | | | LAB | | | | | | [facility] | | | | | | LABORATORY | | + + + + + + | Neutrophils | 5.47 | 1.90 - 7.40 | REFERENCE | | | , Absolute | | K/uL | LAB | | | | | | [facility] | | | | | | LABORATORY | | + + + + + + | Absolute | 2.45 | 1.00 - 3.90 | REFERENCE | | | Lymphocytes | | K/uL | LAB | | | | | | [facility] | | | | | | LABORATORY | | + + + + + + | Absolute | 0.47 | 0.00 - 0.80 | REFERENCE | | | Monocytes | | K/uL | LAB | | | | | | [facility] | | | | | | LABORATORY | | + + + + + + | Eosinophils | 0.10 | 0.00 - 0.50 | REFERENCE | | | , Absolute | | K/uL | LAB | | | | | | [facility] | | | | | | LABORATORY | | + + + + + + | Basophils, | 0.09Comment: Testing | 0.00 - 0.10 | REFERENCE | | | Absolute | Performed at [facility], [address] | K/uL | LAB | | | | [address] | | [facility] | | | | [address], [place] | | LABORATORY | | | | [address] | | | | + + + + + + + + | Specimen | + + | Blood | + + + + + + + | Performing | Address | City/State/Zipcode | Phone Number | | Organization | | | | + + + + + | REFERENCE LAB | [address] | [place] [address] | [phone] | | [facility] | Blvd[address] | | | | LABORATORY | | | | + + + + + | REFERENCE LAB | [address] | [place] [address] | | | [facility] | Blvd[address] | | | | LABORATORY | | | | + + + + + Comprehensive Metabolic Panel (09/03/2019 7:46 AM PDT) + + + + + + | Component | Value | Ref Range | Performed | Pathologist | | | | | At | Signature | + + + + + + | Na | 138 | 135 - 145 | REFERENCE | | | | | mmol/L | LAB | | | | | | [facility] | | | | | | LABORATORY | | + + + + + + | K | 4.0 | 3.5 - 4.9 | REFERENCE | | | | | mmol/L | LAB | | | | | | [facility] | | | | | | LABORATORY | | + + + + + + | Cl | 103 | 99 - 109 mmol/L | REFERENCE | | | | | | LAB | | | | | | [facility] | | | | | | LABORATORY | | + + + + + + | CO2 | 26 | 23 - 32 mmol/L | REFERENCE | | | | | | LAB | | | | | | [facility] | | | | | | LABORATORY | | + + + + + + | Anion Gap | 13 | 5 - 20 mmol/L | REFERENCE | | | | | | LAB | | | | | | [facility] | | | | | | LABORATORY | | + + + + + + | Glucose | 168 (H) | 65 - 99 mg/dL | REFERENCE | | | | | | LAB | | | | | | [facility] | | | | | | LABORATORY | | + + + + + + | BUN | 13 | 8 - 25 mg/dL | REFERENCE | | | | | | LAB | | | | | | [facility] | | | | | | LABORATORY | | + + + + + + | Creatinine | 0.71 | 0.50 - 1.00 | REFERENCE | | | | | mg/dL | LAB | | | | | | [facility] | | | | | | LABORATORY | | + + + + + + | BUN/Creatin | 18 | | REFERENCE | | | ine Ratio | | | LAB | | | | | | [facility] | | | | | | LABORATORY | | + + + + + + | Calcium | 9.6 | 8.5 - 10.5 | REFERENCE | | | | | mg/dL | LAB | | | | | | [facility] | | | | | | LABORATORY | | + + + + + + | Protein, | 6.9 | 6.3 - 8.2 g/dL | REFERENCE | | | Total | | | LAB | | | | | | [facility] | | | | | | LABORATORY | | + + + + + + | Albumin | 3.7 | 3.3 - 4.8 g/dL | REFERENCE | | | | | | LAB | | | | | | [facility] | | | | | | LABORATORY | | + + + + + + | Globulin | 3.2 | 1.3 - 4.9 g/dL | REFERENCE | | | | | | LAB | | | | | | [facility] | | | | | | LABORATORY | | + + + + + + | A/G Ratio | 1.2 | 1.0 - 2.4 | REFERENCE | | | | | | LAB | | | | | | [facility] | | | | | | LABORATORY | | + + + + + + | BILIRUBIN, | 0.5 | 0.1 - 1.5 mg/dL | REFERENCE | | | TOTAL | | | LAB | | | | | | [facility] | | | | | | LABORATORY | | + + + + + + | ALK PHOS | 71 | 35 - 115 U/L | REFERENCE | | | | | | LAB | | | | | | [facility] | | | | | | LABORATORY | | + + + + + + | AST | 14 | 10 - 45 U/L | REFERENCE | | | | | | LAB | | | | | | [facility] | | | | | | LABORATORY | | + + + + + + | ALT | 12 | 10 - 65 U/L | REFERENCE | | | | | | LAB | | | | | | [facility] | | | | | | LABORATORY | | + + + + + + | Estimated | >60Comment: GFR <60: | >60 | REFERENCE | | | GFR | CHRONIC KIDNEY DISEASE, | mL/min/1.73m2 | LAB | | | | IF FOUND OVER A 3 MONTH | | [facility] | | | | PERIOD.GFR <15: KIDNEY | | LABORATORY | | | | FAILURE.FOR | | | | | | AMERICANS, MULTIPLY THE | | | | | | CALCULATED GFR BY | | | | | | 1.210.This eGFR is | | | | | | calculated using the | | | | | | MDRD IDMS traceable | | | | | | equation.Testing | | | | | | Performed at [facility], [address] | | | | | | [address] | | | | | | [address], [place] | | | | | | [address] | | | | + + + + + + + + | Specimen | + + | Blood | + + + + + + + | Performing | Address | City/State/Zipcode | Phone Number | | Organization | | | | + + + + + | REFERENCE LAB | [address] | [place] [address] | [phone] | | [facility] | Blvd[address] | | | | LABORATORY | | | | + + + + + | REFERENCE LAB | [address] | [place] [address] | | | [facility] | Blvd[address] | | | | LABORATORY | | | | + + + + + CBC with Differential (09/03/2019 7:46 AM PDT) + + + + + + | Component | Value | Ref Range | Performed | Pathologist | | | | | At | Signature | + + + + + + | WBC | 7.71 | 3.80 - 11.00 | REFERENCE | | | | | K/uL | LAB | | | | | | [facility] | | | | | | LABORATORY | | + + + + + + | RBC | 4.97 | 3.70 - 5.10 | REFERENCE | | | | | M/uL | LAB | | | | | | [facility] | | | | | | LABORATORY | | + + + + + + | Hemoglobin | 15.0 | 11.3 - 15.5 | REFERENCE | | | | | g/dL | LAB | | | | | | [facility] | | | | | | LABORATORY | | + + + + + + | Hematocrit | 45.2 | 34.0 - 46.0 % | REFERENCE | | | | | | LAB | | | | | | [facility] | | | | | | LABORATORY | | + + + + + + | MCV | 90.9 | 80.0 - 100.0 fl | REFERENCE | | | | | | LAB | | | | | | [facility] | | | | | | LABORATORY | | + + + + + + | MCH | 30.2 | 27.0 - 34.0 pg | REFERENCE | | | | | | LAB | | | | | | [facility] | | | | | | LABORATORY | | + + + + + + | MCHC | 33.3 | 32.0 - 35.5 | REFERENCE | | | | | g/dL | LAB | | | | | | [facility] | | | | | | LABORATORY | | + + + + + + | RDW-SD | 57.3 (H) | 37 - 53 fl | REFERENCE | | | | | | LAB | | | | | | [facility] | | | | | | LABORATORY | | + + + + + + | Platelet | 192 | 150 - 400 K/uL | REFERENCE | | | Count | | | LAB | | | | | | [facility] | | | | | | LABORATORY | | + + + + + + | MPV | 7.4 | fl | REFERENCE | | | | | | LAB | | | | | | [facility] | | | | | | LABORATORY | | + + + + + + | Diff Type | AUTOMATED | | REFERENCE | | | | | | LAB | | | | | | [facility] | | | | | | LAB[facility]AT[facility] | | + + + + + + | % | 66.69 | % | REFERENCE | | | Neutrophils | | | LAB | | | | | | [facility] | | | | | | LABORATORY | | + + + + + + | % | 25.54 | % | REFERENCE | | | Lymphocytes | | | LAB | | | | | | [facility] | | | | | | LABORAT[facility] | | + + + + + + | Monocyte % | 5.18 | % | REFERENCE | | | | | | LAB | | | | | | [facility] | | | | | | LABORAT[facility] | | + + + + + + | Eosinophils | 1.57 | % | REFERENCE | | | % | | | LAB | | | | | | [facility] | | | | | | LABORAT[facility] | | + + + + + + | Basophils % | 1.02 | % | REFERENCE | | | | | | LAB | | | | | | [facility] | | | | | | LABORAT[facility] | | + + + + + + | Neutrophils | 5.14 | 1.90 - 7.40 | REFERENCE | | | , Absolute | | K/uL | LAB | | | | | | [facility] | | | | | | LABORAT[facility] | | + + + + + + | Absolute | 1.97 | 1.00 - 3.90 | REFERENCE | | | Lymphocytes | | K/uL | LAB | | | | | | [facility] | | | | | | LABORAT[facility] | | + + + + + + | Absolute | 0.40 | 0.00 - 0.80 | REFERENCE | | | Monocytes | | K/uL | LAB | | | | | | [facility] | | | | | | LABORAT[facility] | | + + + + + + | Eosinophils | 0.12 | 0.00 - 0.50 | REFERENCE | | | , Absolute | | K/uL | LAB | | | | | | [facility] | | | | | | LABOR[facility] | | + + + + + + | Basophils, | 0.08 | 0.00 - 0.10 | REFERENCE | | | Absolute | | K/uL | LAB | | | | | | [facility] | | | | | | LABORAT[facility] | | + + + + + + | RBC | 1+Comment: ANISOTesting | | REFERENCE | | | Morphology | Performed at [facility], [address] | LAB | | | | [address] | | [facility] | | | | [place] | | LABORATORY | | | | [id number] | | | | + + + + + + + + | Specimen | + + | Blood | + + + + + + + | Performing | Address | City/State/Zipcode | Phone Number | | Organization | | | | + + + + + | REFERENCE LAB | [address] | [place] [address] | [phone] | | [facility] | Bl[address] | | | | LABORATORY | | | | + + + + + | REFERENCE LAB | [address] | [place] [address] | | | [facility] | Blvd[address] | | | | LABORATORY | | | | + + + + + Urinalysis, Microscopic Only (08/13/2019 8:46 AM PDT) + + + + + + | Component | Value | Ref Range | Performed | Pathologist | | | | | At | Signature | + + + + + + | WBC UA | 0-2 | 0 - 5 /hpf | REFERENCE | | | | | | LAB | | | | | | [facility] | | | | | | LABORAT[facility] | | + + + + + + | RBC UA | 0-2 | 0 - 5 /hpf | REFERENCE | | | | | | LAB | | | | | | [facility] | | | | | | LABORATORY | | + + + + + + | SQUAMOUS | 16-25 | /lpf | REFERENCE | | | EPITHELIAL | | | LAB | | | UA | | | [facility] | | | | | | LABORATORY | | + + + + + + | BACTERIA UA | TRACE (A) | NONE | REFERENCE | | | | | | LAB | | | | | | [facility] | | | | | | LABORATORY | | + + + + + + | MUCUS UA | 4+ | | REFERENCE | | | | | | LAB | | | | | | [facility] | | | | | | LABORATORY | | + + + + + + | CASTS | 1-5Comment: | /lpf | REFERENCE | | | | HYALINETesting Performed | | LAB | | | | at [facility], [address] | | [facility] | | | | [address] | | LABORATORY | | | | [address], [place] | | | | | | [id number] | | | | + + + + + + + + | Specimen | + + | | + + + + + + + | Performing | Address | City/State/Zipcode | Phone Number | | Organization | | | | + + + + + | REFERENCE LAB | [address] [place] [address] | [place] [address] | [phone] | | [facility] | Blvd[address] | | | | LABORATORY | | | | + + + + + | REFERENCE LAB | [address] [place] [address] | [place] [address] | | | [facility] | Blvd[address] | | | | LABORATORY | | | | + + + + + Protein, Urine, Random (08/13/2019 8:46 AM PDT) + + + + + + | Component | Value | Ref Range | Performed | Pathologist | | | | | At | Signature | + + + + + + | Protein, | 49Comment: NO NORMAL | mg/dL | REFERENCE | | | Urine | RANGE ESTABLISHEDTesting | | LAB | | | | performed at [facility];[address] | | [facility] | | | | [address] | | LABORATORY | | | | [address];[place] [address] | | | | | | | | | | + + + + + + + + | Specimen | + + | | + + + + + + + | Performing | Address | City/State/Zipcode | Phone Number | | Organization | | | | + + + + + | REFERENCE LAB | [address] [place] [address] | [place] [address] | [phone] | | [facility] | Blvd[address] | | | | LABORATORY | | | | + + + + + | REFERENCE LAB | [address] [place] [address] | [place] [address] | | | [facility] | Blvd[address] | | | | LABORATORY | | | | + + + + + Creatinine, Urine, Random (08/13/2019 8:46 AM PDT) + + + + + + | Component | Value | Ref Range | Performed | Pathologist | | | | | At | Signature | + + + + + + | Creatinine, | 167.0Comment: NO NORMAL | mg/dL | REFERENCE | | | random | RANGE ESTABLISHEDTesting | | LAB | | | urine | performed at [facility];[address] | | [facility] | | | | [address] | | LABORATORY | | | | [address];[place] [address] | | | | | | | | | | + + + + + + + + | Specimen | + + | | + + + + + + + | Performing | Address | City/State/Zipcode | Phone Number | | Organization | | | | + + + + + | REFERENCE LAB | [address] | [place] [address] | [phone] | | [facility] | Blvd[address] | | | | LABORATORY | | | | + + + + + | REFERENCE LAB | [address] | [place] [address] | | | [facility] | Blvd[address] | | | | LABORATORY | | | | + + + + + Urinalysis with Microscopic if Indicated (08/13/2019 8:46 AM PDT) + + + + + + | Component | Value | Ref Range | Performed | Pathologist | | | | | At | Signature | + + + + + + | Color, UA | YELLOW | | REFERENCE | | | | | | LAB | | | | | | [facility] | | | | | | LABORATORY | | + + + + + + | Clarity, UA | CLEAR | | REFERENCE | | | | | | LAB | | | | | | [facility] | | | | | | LABORATORY | | + + + + + + | Specific | 1.025 | 1.002 - 1.030 | REFERENCE | | | [place], | | | LAB | | | Urine | | | [facility] | | | | | | LABORATORY | | + + + + + + | Leukocyte | NEGATIVE | NEG | REFERENCE | | | esterase, | | | LAB | | | UA | | | [facility] | | | | | | LABORATORY | | + + + + + + | Nitrite, UA | NEGATIVE | NEG | REFERENCE | | | | | | LAB | | | | | | [facility] | | | | | | LABORATORY | | + + + + + + | Urobilinoge | 0.2 | <1.1 mg/dL | REFERENCE | | | n, Ur | | | LAB | | | | | | [facility] | | | | | | LABORATORY | | + + + + + + | Protein, | 100 (A) | NEG mg/dL | REFERENCE | | | Urine | | | LAB | | | (mg/dL) | | | [facility] | | | | | | LABORATORY | | + + + + + + | pH, Urine | 5.0 | 5.0 - 8.0 | REFERENCE | | | | | | LAB | | | | | | [facility] | | | | | | LABORATORY | | + + + + + + | Blood, UA | NEGATIVE | NEG | REFERENCE | | | | | | LAB | | | | | | [facility] | | | | | | LABORATORY | | + + + + + + | Ketones, UA | NEGATIVE | NEG mg/dL | REFERENCE | | | | | | LAB | | | | | | [facility] | | | | | | LABORATORY | | + + + + + + | Bilirubin, | NEGATIVE | NEG | REFERENCE | | | UA | | | LAB | | | | | | [facility] | | | | | | LABORATORY | | + + + + + + | Glucose, Ur | NEGATIVEComment: Testing | NEG mg/dL | REFERENCE | | | | Performed at [facility], [address] | | [address] | | | | [address] | | [facility] | | | | [address] | | LABORATORY | | | | [address] | | | | + + + + + + + + | Specimen | + + | | + + + + + + + | Performing | Address | City/State/Zipcode | Phone Number | | Organization | | | | + + + + + | REFERENCE LAB | [address] | [place] [address] | [phone] | | [facility] | Blvd[address] | | | | LABORATORY | | | | + + + + + | REFERENCE LAB | [address] | [place] [address] | | | [facility] | Blvd[address] | | | | LABORATORY | | | | + + + + + Protein/Creatinine Ratio, Urine (08/13/2019 8:46 AM PDT) + + + + + + | Component | Value | Ref Range | Performed | Pathologist | | | | | At | Signature | + + + + + + | PRO/CREA | 0.293Comment: Testing | | REFERENCE | | | RATIO,URINE | performed at [facility];[address] | | LAB | | | | [place] | | [facility] | | | | Blvd;[place] [address] | | LABORATORY | | + + + + + + + + | Specimen | + + | | + + + + + + + | Performing | Address | City/State/Zipcode | Phone Number | | Organization | | | | + + + + + | REFERENCE LAB | [address] [place] [address] | [place] [address] | [phone] | | [facility] | Blvd[address] | | | | LABORATORY | | | | + + + + + | REFERENCE LAB | [address] [place] [address] | [place] [address] | | | [facility] | Blvd[address] | | | | LABORATORY | | | | + + + + + Comprehensive Metabolic Panel (08/13/2019 8:46 AM PDT) + + + + + + | Component | Value | Ref Range | Performed | Pathologist | | | | | At | Signature | + + + + + + | Na | 139 | 135 - 145 | REFERENCE | | | | | mmol/L | LAB | | | | | | [facility] | | | | | | LABORATORY | | + + + + + + | K | 4.1 | 3.5 - 4.9 | REFERENCE | | | | | mmol/L | LAB | | | | | | [facility] | | | | | | LABORATORY | | + + + + + + | Cl | 104 | 99 - 109 mmol/L | REFERENCE | | | | | | LAB | | | | | | [facility] | | | | | | LABORATORY | | + + + + + + | CO2 | 27 | 23 - 32 mmol/L | REFERENCE | | | | | | LAB | | | | | | [facility] | | | | | | LABORATORY | | + + + + + + | Anion Gap | 12 | 5 - 20 mmol/L | REFERENCE | | | | | | LAB | | | | | | [facility] | | | | | | LABORATORY | | + + + + + + | Glucose | 158 (H) | 65 - 99 mg/dL | REFERENCE | | | | | | LAB | | | | | | [facility] | | | | | | LABORATORY | | + + + + + + | BUN | 12 | 8 - 25 mg/dL | REFERENCE | | | | | | LAB | | | | | | [facility] | | | | | | LABORATORY | | + + + + + + | Creatinine | 0.71 | 0.50 - 1.00 | REFERENCE | | | | | mg/dL | LAB | | | | | | [facility] | | | | | | LABORATORY | | + + + + + + | BUN/Creatin | 17 | | REFERENCE | | | ine Ratio | | | LAB | | | | | | [facility] | | | | | | LABORATORY | | + + + + + + | Calcium | 9.5 | 8.5 - 10.5 | REFERENCE | | | | | mg/dL | LAB | | | | | | [facility] | | | | | | LABORATORY | | + + + + + + | Protein, | 7.2 | 6.3 - 8.2 g/dL | REFERENCE | | | Total | | | LAB | | | | | | [facility] | | | | | | LABORATORY | | + + + + + + | Albumin | 3.8 | 3.3 - 4.8 g/dL | REFERENCE | | | | | | LAB | | | | | | [facility] | | | | | | LABORATORY | | + + + + + + | Globulin | 3.4 | 1.3 - 4.9 g/dL | REFERENCE | | | | | | LAB | | | | | | [facility] | | | | | | LABORATORY | | + + + + + + | A/G Ratio | 1.1 | 1.0 - 2.4 | REFERENCE | | | | | | LAB | | | | | | [facility] | | | | | | LABORATORY | | + + + + + + | BILIRUBIN, | 0.3 | 0.1 - 1.5 mg/dL | REFERENCE | | | TOTAL | | | LAB | | | | | | [facility] | | | | | | LABORATORY | | + + + + + + | ALK PHOS | 66 | 35 - 115 U/L | REFERENCE | | | | | | LAB | | | | | | [facility] | | | | | | LABORATORY | | + + + + + + | AST | 12 | 10 - 45 U/L | REFERENCE | | | | | | LAB | | | | | | [facility] | | | | | | LABORATORY | | + + + + + + | ALT | 11 | 10 - 65 U/L | REFERENCE | | | | | | LAB | | | | | | [facility] | | | | | | LABORATORY | | + + + + + + | Estimated | >60Comment: GFR <60: | >60 | REFERENCE | | | GFR | CHRONIC KIDNEY DISEASE, | mL/min/1.73m2 | LAB | | | | IF FOUND OVER A 3 MONTH | | [facility] | | | | PERIOD.GFR <15: KIDNEY | | LABORATORY | | | | FAILURE.FOR | | | | | | AMERICANS, MULTIPLY THE | | | | | | CALCULATED GFR BY | | | | | | 1.210.This eGFR is | | | | | | calculated using the | | | | | | MDRD IDMS traceable | | | | | | equation.Testing | | | | | | Performed at [facility], [address] | | | | | | [address] | | | | | | [address], [place] | | | | | | [address] | | | | + + + + + + + + | Specimen | + + | | + + + + + + + | Performing | Address | City/State/Zipcode | Phone Number | | Organization | | | | + + + + + | REFERENCE LAB | [address] | [place] [address] | [phone] | | [facility] | Blvd[address] | | | | LABORATORY | | | | + + + + + | REFERENCE LAB | [address] | [place] [address] | | | [facility] | Blvd[address] | | | | LABORATORY | | | | + + + + + CBC with Differential (08/13/2019 8:46 AM PDT) + + + + + + | Component | Value | Ref Range | Performed | Pathologist | | | | | At | Signature | + + + + + + | WBC | 7.71 | 3.80 - 11.00 | REFERENCE | | | | | K/uL | LAB | | | | | | [facility] | | | | | | LABORATORY | | + + + + + + | RBC | 4.77 | 3.70 - 5.10 | REFERENCE | | | | | M/uL | LAB | | | | | | [facility] | | | | | | LABORATORY | | + + + + + + | Hemoglobin | 14.9 | 11.3 - 15.5 | REFERENCE | | | | | g/dL | LAB | | | | | | [facility] | | | | | | LABORATORY | | + + + + + + | Hematocrit | 44.2 | 34.0 - 46.0 % | REFERENCE | | | | | | LAB | | | | | | [facility] | | | | | | LABORATORY | | + + + + + + | MCV | 92.7 | 80.0 - 100.0 fl | REFERENCE | | | | | | LAB | | | | | | [facility] | | | | | | LABORATORY | | + + + + + + | MCH | 31.2 | 27.0 - 34.0 pg | REFERENCE | | | | | | LAB | | | | | | [facility] | | | | | | LABORATORY | | + + + + + + | MCHC | 33.6 | 32.0 - 35.5 | REFERENCE | | | | | g/dL | LAB | | | | | | [facility] | | | | | | LABORATORY | | + + + + + + | RDW-SD | 60.4 (H) | 37 - 53 fl | REFERENCE | | | | | | LAB | | | | | | [facility] | | | | | | LABORATORY | | + + + + + + | Platelet | 213 | 150 - 400 K/uL | REFERENCE | | | Count | | | LAB | | | | | | [facility] | | | | | | LABORATORY | | + + + + + + | MPV | 7.3 | fl | REFERENCE | | | | | | LAB | | | | | | [facility] | | | | | | LABORATORY | | + + + + + + | Diff Type | AUTOMATED | | REFERENCE | | | | | | LAB | | | | | | [facility] | | | | | | LABORATORY | | + + + + + + | % | 64.21 | % | REFERENCE | | | Neutrophils | | | LAB | | | | | | [facility] | | | | | | LABORATORY | | + + + + + + | % | 29.03 | % | REFERENCE | | | Lymphocytes | | | LAB | | | | | | [facility] | | | | | | LABORATORY | | + + + + + + | Monocyte % | 4.82 | % | REFERENCE | | | | | | LAB | | | | | | [facility] | | | | | | LABORATORY | | + + + + + + | Eosinophils | 1.09 | % | REFERENCE | | | % | | | LAB | | | | | | [facility] | | | | | | LABORATORY | | + + + + + + | Basophils % | 0.85 | % | REFERENCE | | | | | | LAB | | | | | | [facility] | | | | | | LABORATORY | | + + + + + + | Neutrophils | 4.95 | 1.90 - 7.40 | REFERENCE | | | , Absolute | | K/uL | LAB | | | | | | [facility] | | | | | | LABORATORY | | + + + + + + | Absolute | 2.24 | 1.00 - 3.90 | REFERENCE | | | Lymphocytes | | K/uL | LAB | | | | | | [facility] | | | | | | LABORATORY | | + + + + + + | Absolute | 0.37 | 0.00 - 0.80 | REFERENCE | | | Monocytes | | K/uL | LAB | | | | | | [facility] | | | | | | LABORATORY | | + + + + + + | Eosinophils | 0.08 | 0.00 - 0.50 | REFERENCE | | | , Absolute | | K/uL | LAB | | | | | | [facility] | | | | | | LABORATORY | | + + + + + + | Basophils, | 0.07 | 0.00 - 0.10 | REFERENCE | | | Absolute | | K/uL | LAB | | | | | | [facility] | | | | | | LABORATORY | | + + + + + + | RBC | 2+Comment: ANISONORMAL | | REFERENCE | | | Morphology | PLT MORPHTesting | | LAB | | | | Performed at [facility], [address] | | [facility] | | | | [address] | | LABORATORY | | | | [address], [place] | | | | | | [address] | | | | + + + + + + + + | Specimen | + + | | + + + + + + + | Performing | Address | City/State/Zipcode | Phone Number | | Organization | | | | + + + + + | REFERENCE LAB | [address] | [place] [address] | [phone] | | [facility] | Blvd[address] | | | | LABORATORY | | | | + + + + + | REFERENCE LAB | [address] | [place] [address] | | | [facility] | Blvd[address] | | | | LABORATORY | | | | + + + + + documented in this encounter Visit Diagnoses + + | Diagnosis | + + | 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 Administered Medications + +--------+ +--------+------+------+ | Medication Order | MAR | Action | Dose | Rate | Site | | | Action | Date | | | | + +--------+ +--------+------+------+ | sodium chloride 0.9% flush 10 | Given | 08/13/20 | 10 mLs | | | | mL 10 mL, Intracatheter, PRN, | | 19 8:53 | | | | | Line Care, Starting Teresa 08/13/19 | | AM PDT | | | | | at 0853 | | | | | | + +--------+ +--------+------+------+ +---+---+ | | | +---+---+ documented in this encounter"
--- OUTSIDE RECORDS SUMMARY | ~2019-12-09 | XMS | Encounter Summary ---
Demographics + + + | Address | [address] | | | [place] [address] | + + + | Home Phone | | + + + | Preferred Language | Unknown | + + + | Marital Status | | + + + | Caodaism Affiliation | Unknown | + + + | Race | Unknown | + + + | Ethnic Group | Unknown | + + + Author + + + | Author | [facility] | | | and [place] | + + + | Organization | [facility] | | | [...] | | | | [place] [address] | | + + + + + | Emory Larios | ECON | Unknown | | + + + + + Care Team Providers + +------+ + | Care Grain Mill Worker Name | Role | Phone | + +------+ + | Shannan Deng | PCP | | + +------+ + Encounter Details +--------+ + + + + | Date | Type | Department | Care Team | Description | +--------+ + + + + | 05/14/ | Orders Only | [facility] | Conversion | | | 2018 | | CONVERSION [address] | Transaction, | | | | | [address] | Provider Unknown | | | | | [place], [place] | [phone] | | | | | [address] | | | | | | [phone] | | | +--------+ + + + [...] 2019 | | | [address] | | | | | | [place] | | | | | | [address] | | | | | | | | +--------+ + + + + | 12/17/ | Office | Oncology | Yancy Clifford MD | | | 2019 | Visit | | [address] | | | | | | [place] | | | | | | [address] | | | | | | | | +--------+ + + + + | 12/17/ | Appointment | Infusion Therapy | Yancy Clifford MD | | | 2019 | | | [address] | | | | | | [place] | | | | | | [address] | | | | | | | | +--------+ + + + + | 01/07/ | Appointment | Infusion Therapy | Yancy Clifford MD | | | 2019 | | | [address] | | | | | | [place] | | | | | | [address] | | | | | | | | +--------+ + + + + | 01/07/ | Office | Oncology | Yancy Clifford MD | | | 2019 | Visit | | [address] | | | | | | [place] | | | | | | [address] | | | | | | | | +--------+ + + + + | 01/07/ | Appointment | Infusion Therapy | Yancy Clifford MD | | | 2019 | | | [address] | | | | | | [place] | | | | | | [address] | | | | | | | | +--------+ + + + + documented as of this encounter Visit Diagnoses Not on filedocumented in this encounter"
--- OUTSIDE RECORDS SUMMARY | ~2019-12-09 | XMS | Encounter Summary ---
Demographics + + + | Address | [address] | | | [place] [address] | + + + | Home Phone | | + + + | Preferred Language | Unknown | + + + | Marital Status | | + + + | Yazidism Affiliation | Unknown | + + + | Race | Unknown | + + + | Ethnic Group | Unknown | + + + Author + + + | Author | [facility] | | | and [place] | + + + | Organization | [facility] | | [...] | | | | [place] [address] | | + + + + + | Emory Larios | ECON | Unknown | | + + + + + Care Team Providers + +------+ + | Care Guest Experience Manager Name | Role | Phone | + +------+ + PCP | Unavailable | + +------+ + Encounter Details +--------+ + + + + | Date | Type | Department | Care Team | Description | +--------+ + + + + | 07/08/ | Hospital | [facility] | Conversion | Chronic deep vein | | 2018 | Encounter | [facility] | Transaction, | thrombosis (DVT) of | | | | [address] | Provider Unknown | other vein of right | | | | [address] | [phone] | upper extremity | | | | [place], [place] | | (HCC); Malignant | | | | [address] | Yancy Clifford MD [address] | neoplasm of both | | | | [phone] | [address] | ovaries (HCC) | | | | | [place] [address] | | | | | | [phone] | | | | | | | [...] | 0 | 05/14/20 | | | (MEVACOR) 20 mg | nightly. | | | 18 | 9 | | tablet | | | | | | + + + +---------+ + + documented as of this encounter Progress Notes Aissatou Teixeira, Provider Unknown - 07/08/2018 11:59 PM PDTFormatting of this note m ight be different from the original. Progress Notes by Gardenia Seo CMA at 07/08/182358 Author: Gardenia Seo CMA Service: (none) Author Type: Ux Designer Filed: 07/30/18 6682 Date of Service: 07/08/182358 Status: Signed Damage Inside Adjuster: Gardenia Seo CMA (Ux Designer) Message informed to patient. docume nted in this encounter Plan of [...] [place] | | | | | | [address] | | | | | | | | +--------+ + + + + | 12/17/ | Office | Oncology | Yancy Clifford MD | | | 2019 | Visit | | [address] | | | | | | [place] | | | | | | [address] | | | | | | | | +--------+ + + + + | 12/17/ | Appointment | Infusion Therapy | Yancy Clifford MD | | | 2019 | | | [address] | | | | | | [place] | | | | | | [address] | | | | | | | | +--------+ + + + + | 01/07/ | Appointment | Infusion Therapy | Yancy Clifford MD | | | 2019 | | | [address] | | | | | | [place] | | | | | | [address] | | | | | | | | +--------+ + + + + | 01/07/ | Office | Oncology | Yancy Clifford MD | | | 2019 | Visit | | [address] | | | | | | [place] | | | | | | [address] | | | | | | | | +--------+ + + + + | 01/07/ | Appointment | Infusion Therapy | Yancy Clifford MD | | | 2019 | | | [address] | | | | | | [place] | | | | | | [address] | | | | | | | | +--------+ + + + + documented as of this encounter Procedures + +--------+ + + + | Procedure Name | Priori | Date/Time | Associated Diagnosis | Comments | | | ty | | | | + +--------+ + + + | VAS UPPER EXTREMITY | Routin | 07/08/2018 | | Results for this | | VENOUS RIGHT | e | 2:08 PM | | procedure are in the | | | | PDT | | results section. | + +--------+ + + + documented in this encounter Results VAS Upper Extremity Venous Right (07/08/2018 2:08 PM PDT) + + | Specimen | + + | | + + + + + | Impressions | Performed At | + + + | 1. No right upper extremity deep vein thrombosis seen. | | | | | + + + + + + | Narrative | Performed At | + + + | [facility] 1960 US UPPER EXTREMITY VENOUS DOPPLER RIGHT | | | 07/08/2018 2:08 PM INDICATION: DVT. Ovarian cancer. The medial | | | right proximity. COMPARISON: None. TECHNIQUE: Right upper | | | extremity venous duplex, grayscale, color-flow and spectral analysis | | | FINDINGS: The internal jugular vein is patent. There is normal | | | color flow of the internal jugular and subclavian veins. Normal | | | augmentation is present along the proximal deep venous system. The | | | cephalic vein is normally compressible. The basilic vein is normal | | | in appearance. | | + + + + + | Procedure Note | + + | Chi, Rad Conversion - 07/15/2019 9:49 AM PDT [facility]US UPPER | | EXTREMITY VENOUS DOPPLER RIGHT07/08/2018 2:08 PM INDICATION: DVT. Ovarian cancer. The | | medial right proximity. COMPARISON: None. TECHNIQUE: Right upper extremity venous | | duplex, grayscale, color-flow and spectral analysis FINDINGS: The internal jugular vein | | is patent. There is normal color flow of the internal jugular and subclavian veins. | | Normal augmentation is present along the proximal deep venous system. The cephalic vein | | is normally compressible. The basilic vein is normal in appearance. IMPRESSION: 1. No | | right upper extremity deep vein thrombosis seen. | |TECHNIQUE: Right upper extremity venous duplex, grayscale, color-flow and spectral analysis | | | |FINDINGS: The internal jugular vein is patent. There is normal color flow of the internal j ugular and subclavian veins. Normal augmentation is present along the proximal deep venous s ystem. The cephalic vein is | |normally compressible. The basilic vein is | |normal in appearance. | | | |IMPRESSION: | |1. No right upper extremity deep vein thrombosis seen. | | | | | + + documented in this encounter Visit Diagnoses + + | Diagnosis | + + | Chronic deep vein thrombosis (DVT) of other vein of right upper extremity (HCC) | + + | Malignant neoplasm of both ovaries (HCC) | + + documented in this encounter"
--- OUTSIDE RECORDS SUMMARY | ~2019-12-09 | XMS | Encounter Summary ---
Demographics + + + | Address | [address] | | | [place] [address] | + + + | Home Phone | | + + + | Preferred Language | Unknown | + + + | Marital Status | | + + + | Buddhist Affiliation | Unknown | + + + | Race | Unknown | + + + | Ethnic Group | Unknown | + + + Author + + + | Author | [facility] | | | and [place] | + + + | Organization | [facility] | | | and [...] | | | | [place] [address] | | + + + + + | Emory Larios | ECON | Unknown | | + + + + + Care Team Providers + +------+ + | Care Farmer Vegetable Name | Role | Phone | + +------+ + PCP | Unavailable | + +------+ + Encounter Details +--------+ + + + + | Date | Type | Department | Care Team | Description | +--------+ + + + + | 01/01/ | Hospital | [facility] | Conversion | Constipation, | | 2019 | Encounter | [facility] [address] | Transaction, | unspecified | | | | [address] | Provider Unknown | constipation type; | | | | [place], [place] | [phone] | Malignant neoplasm | | | | [address] | | of left ovary (HCC); | | | | [phone] | Yancy Clifford MD [address] | Pleural effusion, | | | | | [address] | malignant | | | | | [place] [address] | | | | | | [phone] | | | | | | | [...] [place] | | | | | | [address] | | | | | | | | +--------+ + + + + | 12/17/ | Office | Oncology | Yancy Clifford MD | | | 2019 | Visit | | [address] | | | | | | [place] | | | | | | [address] | | | | | | | | +--------+ + + + + | 12/17/ | Appointment | Infusion Therapy | Yancy Clifford MD | | | 2019 | | | [address] | | | | | | [place] | | | | | | [address] | | | | | | | | +--------+ + + + + | 01/07/ | Appointment | Infusion Therapy | Yancy Clifford MD | | | 2019 | | | [address] | | | | | | [place] | | | | | | [address] | | | | | | | | +--------+ + + + + | 01/07/ | Office | Oncology | Yancy Clifford MD | | | 2019 | Visit | | [address] | | | | | | [place] | | | | | | [address] | | | | | | | | +--------+ + + + + | 01/07/ | Appointment | Infusion Therapy | Yancy Clifford MD | | | 2019 | | | [address] | | | | | | [place] | | | | | | [address] | | | | | | | | +--------+ + + + + documented as of this encounter Procedures + +--------+ + + + | Procedure Name | Priori | Date/Time | Associated Diagnosis | Comments | | | ty | | | | + +--------+ + + + | CT CHEST ABDOMEN | Routin | 01/01/2019 | | Results for this | | PELVIS W CONTRAST | e | 2:25 PM | | procedure are in the | | | | PST | | results section. | + +--------+ + + + documented in this encounter Results CT Chest Abdomen Pelvis w Contrast (01/01/2019 2:25 PM PST) + + | Specimen | + + | | + + + + + | Impressions | Performed At | + + + | Abdominal and pelvic lymphadenopathy, likely representing metastatic | | | disease. Retroperitoneal metastatic deposits. Bilateral ovarian | | | masses. Just superficial to the anterior pelvic wall musculature, | | | nodular density seen measuring 1.3 cm x 1.2 cm in size, potentially a | | | metastatic deposit. The right adrenal gland nodule measuring 1.9 cm | | | x 1.5 cm in size, also potentially a metastatic lesion. Signed by: | | | Rafal Em Sign Date/Time: 01/01/2019 3:01 PM | | + + + + + + | Narrative | Performed At | + + + | CT CHEST ABDOMEN AND PELVIS WITH CONTRAST CLINICAL INFORMATION: | | | Right upper quadrant pain. COMPARISON: None PROCEDURE: Axial | | | images through the chest, abdomen and pelvis after the administration | | | of 100 ml omnipaque 350 intravenous contrast. Multiplanar | | | reconstructions. At least one of the following CT dose optimization | | | techniques were used: Automated exposure control; Adjustment of mA | | | and/or kV according to patient size; Use of iterative reconstruction | | | technique. FINDINGS: CHEST Lungs, Pleura and Airways: Trace left | | | pleural effusion. Minimal dependent atelectasis noted involving the | | | lungs. Mediastinum: No cardiomegaly or pericardial effusion. Aorta | | | does not appear aneurysmal. Lymph Nodes: No enlarged lymph nodes | | | seen. ABDOMEN Liver and Biliary: Liver and gallbladder appear | | | unremarkable. Pancreas, Spleen and Adrenals: Pancreas and spleen | | | appear unremarkable. Right adrenal gland nodule seen on series 2, | | | image 111 measuring 1.9 cm x 1.5 cm, incompletely characterized. | | | Mild thickening of the left adrenal gland without identification of | | | any discrete nodules. Kidneys: Lower pole of the right kidney | | | demonstrates an exophytic hypodensity measuring 1.7 cm in size, | | | likely representing a cyst. The left kidney appears unremarkable. | | | ABDOMEN AND PELVIS Bowel: Appendix is not definitively seen. No | | | bowel obstruction or ileus seen. Colonic diverticulosis seen. | | | Vessels: The aorta does not appear aneurysmal. Lymph Nodes: There are | | | multiple enlarged retroperitoneal, mesenteric and bilateral pelvic | | | lymph nodes seen. Some of these are described as follows: | | | Aortocaval lymph node on series 2, image 130 measuring 2.1 cm x 1.2 | | | cm. Lymph node interposed between the common iliac arteries measuring | | | 1.7 cm x 1.7 cm in size on series 2, image 166. Right common | | | femoral vein lymph node on series 2, image 206 measuring 1.9 cm x 1.5 | | | cm in size. Peritoneum and Retroperitoneum: There appear to be few | | | retroperitoneal metastatic deposits, for example to the right aspect | | | of the psoas muscle on series 2, image 167 measuring 9 mm. PELVIS | | | Genitourinary: Bilateral ovarian masses identified, measuring 4.5 cm | | | by 3.8 cm on the right and 5.1 cm x 4.3 cm on the left. BODY WALL | | | Soft Tissues: There is a nodular density identified is just | | | superficial to the anterior pelvic wall musculature on series 2, | | | image 212 measuring 1.3 cm x 1.2 cm, potentially metastatic deposit. | | | Mild anasarca. Small ventral hernia identified containing loops | | | of small bowel without obstruction on series 2, image 184. Bones: | | | Sclerosis identified along the endplates of L1-L2 on series 602, | | | image 59, favored to be degenerative. Overall, no erosive or | | | destructive osseous process appreciated. | | + + + + + | Procedure Note | + + | Chi, Rad Conversion - 07/14/2019 10:[address] CHEST ABDOMEN AND PELVIS WITH | | CONTRASTCLINICAL INFORMATION:Right upper quadrant pain.COMPARISON:NonePROCEDURE:Axial | | images through the chest, abdomen and pelvis after theadministration of 100 ml omnipaque | | 350 intravenous contrast.Multiplanar reconstructions.At least one of the following CT | | dose optimization techniques wereused: Automated exposure control; Adjustment of mA | | and/or kV accordingto patient size; Use of iterative reconstruction | | technique.FINDINGS:CHESTLungs, Pleura and Airways:Trace left pleural effusion. Minimal | | dependent atelectasis notedinvolving the lungs.Mediastinum: No cardiomegaly or | | pericardial effusion. Aorta does notappear aneurysmal.Lymph Nodes: No enlarged lymph | | nodes seen.ABDOMENLiver and Biliary: Liver and gallbladder appear unremarkable.Pancreas, | | Spleen and Adrenals: Pancreas and spleen appear unremarkable.Right adrenal gland nodule | | seen on series 2, image 111 measuring 1.9 cmx 1.5 cm, incompletely characterized. Mild | | thickening of the leftadrenal gland without identification of any discrete | | nodules.Kidneys: Lower pole of the right kidney demonstrates an exophytichypodensity | | measuring 1.7 cm in size, likely representing a cyst. Theleft kidney appears | | unremarkable.ABDOMEN AND PELVISBowel: Appendix is not definitively seen. No bowel | | obstruction orileus seen. Colonic diverticulosis seen.Vessels: The aorta does not | | appear aneurysmal.Lymph Nodes: There are multiple enlarged retroperitoneal, | | mesentericand bilateral pelvic lymph nodes seen. Some of these are described | | asfollows:Aortocaval lymph node on series 2, image 130 measuring 2.1 cm x 1.2 cm.Lymph | | node interposed between the common iliac arteries measuring 1.7cm x 1.7 cm in size on | | series 2, image 166.Right common femoral vein lymph node on series 2, image 206 | | measuring1.9 cm x 1.5 cm in size.Peritoneum and Retroperitoneum: There appear to be few | | retroperitonealmetastatic deposits, for example to the right aspect of the psoasmuscle | | on series 2, image 167 measuring 9 mm.PELVISGenitourinary: Bilateral ovarian masses | | identified, measuring 4.5 cm by3.8 cm on the right and 5.1 cm x 4.3 cm on the left.BODY | | WALLSoft Tissues: There is a nodular density identified is just superficialto the | | anterior pelvic wall musculature on series 2, image 212measuring 1.3 cm x 1.2 cm, | | potentially metastatic deposit. Mildanasarca. Small ventral hernia identified | | containing loops of smallbowel without obstruction on series 2, image 184.Bones: | | Sclerosis identified along the endplates of L1-L2 on series 602,image 59, favored to be | | degenerative. Overall, no erosive ordestructive osseous process appreciated.IMPRESSION: | | Abdominal and pelvic lymphadenopathy, likely representing metastaticdisease. | | Retroperitoneal metastatic deposits. Bilateral ovarianmasses.Just superficial to the | | anterior pelvic wall musculature, nodulardensity seen measuring 1.3 cm x 1.2 cm in size, | | potentially ametastatic deposit.The right adrenal gland nodule measuring 1.9 cm x 1.5 | | cm in size, alsopotentially a metastatic lesion.Signed by: Yael Em Date/Time: | | 01/01/2019 3:01 PM | |cm x 1.7 cm in size on series 2, image 166. | |Right common femoral vein lymph node on series 2, image 206 measuring | |1.9 cm x 1.5 cm in size. | |Peritoneum and Retroperitoneum: There appear to be few retroperitoneal | |metastatic deposits, for example to the right aspect of the psoas | |muscle on series 2, image 167 measuring 9 mm. | |PELVIS | |Genitourinary: Bilateral ovarian masses identified, measuring 4.5 cm by | |3.8 cm on the right and 5.1 cm x 4.3 cm on the left. | |BODY WALL | |Soft Tissues: There is a nodular density identified is just superficial | |to the anterior pelvic wall musculature on series 2, image 212 | |measuring 1.3 cm x 1.2 cm, potentially metastatic deposit. Mild | |anasarca. Small ventral hernia identified containing loops of small | |bowel without obstruction on series 2, image 184. | |Bones: Sclerosis identified along the endplates of L1-L2 on series 602, | |image 59, favored to be degenerative. Overall, no erosive or | |destructive osseous process appreciated. | |IMPRESSION: | |Abdominal and pelvic lymphadenopathy, likely representing metastatic | |disease. Retroperitoneal metastatic deposits. Bilateral ovarian | |masses. | |Just superficial to the anterior pelvic wall musculature, nodular | |density seen measuring 1.3 cm x 1.2 cm in size, potentially a | |metastatic deposit. | |The right adrenal gland nodule measuring 1.9 cm x 1.5 cm in size, also | |potentially a metastatic lesion. | |Signed by: Rafal Em | |Sign Date/Time: 01/01/2019 3:01 PM | + + documented in this encounter Visit Diagnoses + + | Diagnosis | + + | Constipation, unspecified constipation type | + + | Malignant neoplasm of left ovary (HCC) Malignant neoplasm of ovary | + + | Pleural effusion, malignant Malignant pleural effusion | + + documented in this encounter"
--- OUTSIDE RECORDS SUMMARY | ~2019-12-09 | XMS | Encounter Summary ---
Demographics + + + | Address | [address] [address] | | | [place] [address] | + + + | Home Phone | | + + + | Preferred Language | Unknown | + + + | Marital Status | | + + + | Roman Catholic Affiliation | Unknown | + + + | Race | Unknown | + + + | Ethnic Group | Unknown | + + + Author + + + | Author | [facility] | | | and [place] | + + + | Organization | [facility] | | | and [...] | | | | [place] [address] | | + + + + + | Emory Larios | ECON | Unknown | | + + + + + Care Team Providers + +------+ + | Care Property Supervisor Name | Role | Phone | [...] Provider Unknown | | | | | [place], [place] | [phone] | | | | | [address] | | | | | | [phone] | | | +--------+ + + + [...] [place] | | | | | | [address] | | | | | | | | +--------+ + + + + | 12/17/ | Office | Oncology | Yancy Clifford MD | | | 2019 | Visit | | [address] | | | | | | [place] | | | | | | [address] | | | | | | | | +--------+ + + + + | 12/17/ | Appointment | Infusion Therapy | Yancy Clifford MD | | | 2019 | | | [address] | | | | | | [place] | | | | | | [address] | | | | | | | | +--------+ + + + + | 01/07/ | Appointment | Infusion Therapy | Yancy Clifford MD | | | 2019 | | | [address] | | | | | | [place] | | | | | | [address] | | | | | | | | +--------+ + + + + | 01/07/ | Office | Oncology | Yancy Clifford MD | | | 2019 | Visit | | [address] | | | | | | [place] | | | | | | [address] | | | | | | | | +--------+ + + + + | 01/07/ | Appointment | Infusion Therapy | Yancy Clifford MD | | | 2019 | | | [address] | | | | | | [place] | | | | | | [address] | | | | | | | | +--------+ + + + + documented as of this encounter Visit Diagnoses Not on filedocumented in this encounter"
--- OUTSIDE RECORDS SUMMARY | ~2019-12-09 | XMS | Encounter Summary ---
Demographics + + + | Address | [address] | | | [place] [address] | + + + | Home Phone | | + + + | Preferred Language | Unknown | + + + | Marital Status | | + + + | Mandaeism Affiliation | Unknown | + + + | Race | Unknown | + + + | Ethnic Group | Unknown | + + + Author + + + | Author | [facility] | | | and [place] | + + + | Organization | [facility] | | | [...] | | | | [place] [address] | | + + + + + | Emory Larios | ECON | Unknown | | + + + + + Care Team Providers + +------+ + | Care Transport Aide Name | Role | Phone | + +------+ + | Shannan Deng | PCP | | + +------+ + Encounter Details +--------+ + + + + | Date | Type | Department | Care Team | Description | +--------+ + + + + | 09/03/ | Hospital | [facility] | Yancy Clifford MD | 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) | | | | SERVICES [address] | [place] | (Primary Dx) | | | | [address] [place] | [id number] | | | | | [address] [place] | | | | | | [address] | | | | | | [phone] | | | +--------+ + + + [...] documented as of this encounter Progress Notes Giselle Garcia RN - 09/03/2019 9:44 AM PDTPort accessed and labs drawn. Port left access ed for treatment. docum ented in this encounter Plan of Treatment +--------+ + + + + | Date | Type | Specialty | Care Team | Description | +--------+ + + + + | 12/17/ | Appointment | Infusion Therapy | Yancy Clifford MD | | | 2019 | | | [address] | | | | | | [place] | | | | | | [address] | | | | | | | | +--------+ + + + + | 12/17/ | Office | Oncology | Yancy Clifford MD | | | 2019 | Visit | | [address] | | | | | | [place] | | | | | | [address] | | | | | | | | +--------+ + + + + | 12/17/ | Appointment | Infusion Therapy | Yancy Clifford MD | | | 2019 | | | [address] | | | | | | [place] | | | | | | [address] | | | | | | | | +--------+ + + + + | 01/07/ | Appointment | Infusion Therapy | Yancy Clifford MD | | | 2019 | | | [address] | | | | | | [place] | | | | | | [address] | | | | | | | | +--------+ + + + + | 01/07/ | Office | Oncology | Yancy Clifford MD | | | 2019 | Visit | | [address] | | | | | | [place] | | | | | | [address] | | | | | | | | +--------+ + + + + | 01/07/ | Appointment | Infusion Therapy | Yancy Clifford MD | | | 2019 | | | [address] | | | | | | [place] | | | | | | [address] | | | | | | | | +--------+ + + + + documented as of this encounter Procedures + +--------+ + + + | Procedure Name | Priori | Date/Time | Associated Diagnosis | Comments | | | ty | | | | + +--------+ + + + | URINALYSIS WITH | Routin | 09/03/2019 | | Results for this | | MICROSCOPIC IF | e | 7:46 AM | | procedure are in the | | INDICATED | | PDT | | results section. | + +--------+ + + + | URINALYSIS, | Routin | 09/03/2019 | | Results for this | | MICROSCOPIC ONLY | e | 7:46 AM | | procedure are in the | | | | PDT | | results section. | + +--------+ + + + | PROTEIN/CREATININE | Routin | 09/03/2019 | | Results for this | | RATIO, URINE | e | 7:46 AM | | procedure are in the | | | | PDT | | results section. | + +--------+ + + + | PROTEIN, URINE, | Routin | 09/03/2019 | | Results for this | | RANDOM | e | 7:46 AM | | procedure are in the | | | | PDT | | results section. | + +--------+ + + + | CREATININE, URINE, | Routin | 09/03/2019 | | Results for this | | RANDOM | e | 7:46 AM | | procedure are in the | | | | PDT | | results section. | + +--------+ + + + | CBC WITH | STAT | 09/03/2019 | Malignant neoplasm | Results for this | | DIFFERENTIAL | | 7:46 AM | of left ovary (HCC) | procedure are in the | | | | PDT | | results section. | + +--------+ + + + | COMPREHENSIVE | STAT | 09/03/2019 | Malignant neoplasm | Results for this | | METABOLIC PANEL | | 7:46 AM | of left ovary (HCC) | procedure are in the | | | | PDT | | results section. | + +--------+ + + + documented in this encounter Results Urinalysis, Microscopic Only (09/03/2019 7:46 AM PDT) + + + + + + | Component | Value | Ref Range | Performed | Pathologist | | | | | At | Signature | + + + + + + | WBC UA | NONE SEEN | 0 - [...] + + + + | CASTS | 0-2Comment: COARSE | /lpf | REFERENCE | | | | GRANULARTesting | | LAB | | | | Performed at [facility], [address] | | [facility] | | | | [address] | | LABORATORY | | | | [address], [place] | | | | | | [address] | | | | + + + + + + + + | Specimen | + + | | + + + + + + + | Performing | Address | City/State/Zipcode | Phone Number | | Organization | | | | + + + + + | REFERENCE LAB | [address] [place] [address] | [place] [address] | [phone] | | [facility] | Blvd[address] | | | | LABORATORY | | | | + + + + + | REFERENCE LAB | [address] [place] [address] | [place] [address] | | | [facility] | Blvd[address] | | | | LABORATORY | | | | + + + + + Protein, Urine, Random (09/03/2019 7:46 AM PDT) + + + + + + | Component | Value | Ref Range | Performed | Pathologist | | | | | At | Signature | + + + + + + | Protein, | 37Comment: NO NORMAL | mg/dL | REFERENCE | | | Urine | RANGE ESTABLISHEDTesting | | LAB | | | | performed at [facility];[address] | | [facility] | | | | [address] | | LABORATORY | | | | [address];[place] [address] | | | | | | | | | | + + + + + + + + | Specimen | + + | | + + + + + + + | Performing | Address | City/State/Zipcode | Phone Number | | Organization | | | | + + + + + | REFERENCE LAB | [address] [facility] | [place] [address] | [phone] | | [facility] | Blvd[address] | | | | LABORATORY | | | | + + + + + | REFERENCE LAB | [address] [facility] [address] | [place] [address] | | | [facility] | Blvd[address] | | | | LABORATORY | | | | + + + + + Creatinine, Urine, Random (09/03/2019 7:46 AM PDT) + + + + + + | Component | Value | Ref Range | Performed | Pathologist | | | | | At | Signature | + + + + + + | Creatinine, | 109.0Comment: NO NORMAL | mg/dL | REFERENCE | | | random | RANGE ESTABLISHEDTesting | | LAB | | | urine | performed at [facility];[address] | | [facility] | | | | [address] | | LABORATORY | | | | Blvd;[place] [address] | | | | | | | | | | + + + + + + + + | Specimen | + + | | + + + + + + + | Performing | Address | City/State/Zipcode | Phone Number | | Organization | | | | + + + + + | REFERENCE LAB | [address] [facility] | [place] [address] | [phone] | | [facility] | Blvd[address] | | | | LABORATORY | | | | + + + + + | REFERENCE LAB | [address] [facility] [address] | [place] [address] | | | [facility] | Blvd[address] | | | | LABORATORY | | | | + + + + + Urinalysis with Microscopic if Indicated (09/03/2019 7:46 AM PDT) + + + [...] | 1.020 | 1.002 - 1.030 | REFERENCE | | | [place], | | | LAB | | | [...] + | Protein, | 30 (A) | NEG mg/dL | REFERENCE | [...] REFERENCE | | | | Performed at [facility], [address] | | LAB | | | [address] | | [facility] | | | | [address], [place] | | LABORATORY | | | | [address] | | | | + + + + + + + + | Specimen | + + | | + + + + + + + | Performing | Address | City/State/Zipcode | Phone Number | | Organization | | | | + + + + + | REFERENCE LAB | [address] [place] [address] | [place] [address] | [phone] | | [facility] | Blvd[address] | | | | LABORATORY | | | | + + + + + | REFERENCE LAB | [address] [place] [address] | [place] [address] | | | [facility] | Blvd[address] | | | | LABORATORY | | | | + + + + + Protein/Creatinine Ratio, Urine (09/03/2019 7:46 AM PDT) + + + + + + | Component | Value | Ref Range | Performed | Pathologist | | | | | At | Signature | + + + + + + | PRO/CREA | 0.339Comment: Testing | | REFERENCE | | | RATIO,URINE | performed at [facility];[address] | | LAB | | | | [place] | | [facility] | | | | Blvd;[place] [address] | | LABORATORY | | + + + + + + + + | Specimen | + + | | + + + + + + + | Performing | Address | City/State/Zipcode | Phone Number | | Organization | | | | + + + + + | REFERENCE LAB | [address] [facility] | [place] [address] | [phone] | | [facility] | Blvd[address] | | | | LABORATORY | | | | + + + + + | REFERENCE LAB | [address] | [place] [address] | | | [facility] | Bl[address] | [...] [place] | | | | | | [address] | | | | + + + + + + + + | Specimen | + + | Blood | + + + + + + + | Performing | Address | City/State/Zipcode | Phone Number | | Organization | | | | + + + + + | REFERENCE LAB | [address] | [place] [address] | [phone] | | [facility] | Blvd[address] | | | | LABORATORY | | | | + + + + + | REFERENCE LAB | [address] | [place] [address] | | | [facility] | Bl[address] | [...] | | LAB | | | [address] | | [facility] | | | | [address], [place] | | LABORATORY | | | | [address] | | | | + + + + + + + + | Specimen | + + | Blood | + + + + + + + | Performing | Address | City/State/Zipcode | Phone Number | | Organization | | | | + + + + + | REFERENCE LAB | [address] | [place] [address] | [phone] | | [facility] | Bl[address] | | | | LABORATORY | | | | + + + + + | REFERENCE LAB | [address] | [place] [address] | | | [facility] | Bl[address] | [...] chloride 0.9% flush 10 | Given | 09/03/20 | 10 mLs | | | | mL 10 mL, Intracatheter, PRN, | | 19 7:40 | | | | | Line Care, Starting Teresa 09/03/19 | | AM PDT | | | | | at 0946 | | | | | | + +--------+ +--------+------+------+ +---+---+ | | | +---+---+ documented in this encounter"
--- OUTSIDE RECORDS SUMMARY | ~2019-12-09 | XMS | Encounter Summary ---
Demographics + + + | Address | [address] | | | [place] [address] | + + + | Home Phone | | + + + | Preferred Language | Unknown | + + + | Marital Status | | + + + | Faith Affiliation | Unknown | + + + | Race | Unknown | + + + | Ethnic Group | Unknown | + + + Author + + + | Author | [facility] | | | and [place] | + + + | Organization | [facility] | | | [...] | | | | | [place] [address] | | + + + + + | Emory Larios | ECON | Unknown | | + + + + + Care Team Providers + +------+ + | Care Psych Social Worker Name | Role | Phone | + +------+ + PCP | Unavailable | + +------+ + Encounter Details +--------+ + + + + | Date | Type | Department | Care Team | Description | +--------+ + + + + | 07/02/ | Orders Only | [facility] | Yancy Clifford MD | | | 2018 | | INFUSION SUPPORT | [address] | | | | | SERVICES [address] | [place] | | | | | [address] [place] | [address] | | | | | [address] [place] | | | | | | [address] | | | | | | [phone] | | | +--------+ + + + [...] 07/02/19 1305 Encounter Date: 07/02/2019 Status: Signed Transportation Services Representative: Laila Jones RN (Registered Nurse) Port accessed. [...] [place] | | | | | | [address] | | | | | | | | +--------+ + + + + | 12/17/ | Appointment | Infusion Therapy | Yancy Clifford MD | | | 2019 | | | [address] | | | | | | [place] | | | | | | [address] | | | | | | | | +--------+ + + + + | 01/07/ | Appointment | Infusion Therapy | Yancy Clifford MD | | | 2019 | | | [address] | | | | | | [place] | | | | | | [address] | | | | | | | | +--------+ + + + + | 01/07/ | Office | Oncology | Yancy Clifford MD | | | 2019 | Visit | | [address] | | | | | | [place] | | | | | | [address] | | | | | | | | +--------+ + + + + | 01/07/ | Appointment | Infusion Therapy | Yancy Clifford MD | | | 2019 | | | [address] | | | | | | [place] | | | | | | [address] | | | | | | | [...] - 1.030 | EXTERNAL | | | [place] | | | LAB | | + [...]
--- OUTSIDE RECORDS SUMMARY | ~2019-12-09 | XMS | Encounter Summary ---
Demographics + + + | Address | [address] | | | [place] [address] | + + + | Home Phone | | + + + | Preferred Language | Unknown | + + + | Marital Status | | + + + | Synagogue Affiliation | Unknown | + + + | Race | Unknown | + + + | Ethnic Group | Unknown | + + + Author + + + | Author | [facility] | | | and [place] | + + + | Organization | [facility] | | [...] | | | | [place] [address] | | + + + + + | Emory Larios | ECON | Unknown | | + + + + + Care Team Providers + +------+ + | Care Certified Wellness Program Manager Name | Role | Phone | [...] | | | Ascites, | [place], | [place] [address] | | | | | malignant | [place] [address] | Phone: | | | | | Procedures | Phone: | [phone] | | | | | [place] | [phone] | Fax: | | | | | BEVACIZUMAB | Fax: | [phone] | | | | | INJECTION, | [phone] | | | | | | 10 MG [id number] | | | | | | | - [place] | | | | | | | [...] + + | 11/27/ | Hospital | [facility] | Yancy Clifford MD | Malignant neoplasm | | 2019 | Encounter | HEMATOLOGY AND | [address] | of left ovary (HCC) | | | | ONCOLOGY INFUSIONS | [place] | (Primary Dx); | | | | [address] | [address] | Ascites, malignant | | | | [address] [employer] [place] [employer] [place], [place] | | | | | | [address] | Yumiko Crocker, | | | | | [phone] | RN | | +--------+ + + [...] vein. It is given by a health out of school hours care worker in a h ospital or clinic setting. Talk to your reel system operator regarding the use of this medicine in children. Special care may be needed. What side effects may I notice from receiving this medicine? Side effects that you should report to your doctor or health out of school hours care worker as soon as p ossible: allergic reactions [...] attention (report to your doctor or health out of school hours care worker if they continue or are bothersome): back pain changes in taste decreased appetite dry skin nausea tiredness What may interact with this medicine? Interactions are not expected. What if I miss a dose? It is important not to miss your dose. Call your doctor or health out of school hours care worker if you are unable to keep an [...] should talk to your doctor or health out of school hours care worker if you are concerned about your fertility. [...] with [facility] in [facility] INFUSION SUPPORT SERVICES 2:15 PM: Office Visit Extended Appointment starts at 2:30 PM with Yancy Clifford MD in [facility] HEMATOLOGY AND ONCOLOGY 3:00 PM: Onc Infusion with JAZZY CHAIR 14 in [facility] HEMATOLOGY AND ONCOLOGY INFUSIONS documented in this [...] [place] | | | | | | [address] | | | | | | | | +--------+ + + + + | 12/17/ | Office | Oncology | Yancy Clifford MD | | | 2019 | Visit | | [address] | | | | | | [place] | | | | | | [address] | | | | | | | | +--------+ + + + + | 12/17/ | Appointment | Infusion Therapy | Yancy Clifford MD | | | 2019 | | | [address] | | | | | | [place] | | | | | | [address] | | | | | | | | +--------+ + + + + | 01/07/ | Appointment | Infusion Therapy | Yancy Clifford MD | | | 2019 | | | [address] | | | | | | [place] | | | | | | [address] | | | | | | | | +--------+ + + + + | 01/07/ | Office | Oncology | Yancy Clifford MD | | | 2019 | Visit | | [address] | | | | | | [place] | | | | | | [address] | | | | | | | | +--------+ + + + + | 01/07/ | Appointment | Infusion Therapy | Yancy Clifford MD | | | 2019 | | | [address] | | | | | | [place] | | | | | | [address] | | | | | | | [...]
--- OUTSIDE RECORDS SUMMARY | ~2019-12-09 | XMS | Encounter Summary ---
Demographics + + + | Address | [address] | | | [place] [address] | + + + | Home Phone | | + + + | Preferred Language | Unknown | + + + | Marital Status | | + + + | Confucianism Affiliation | Unknown | + + + | Race | Unknown | + + + | Ethnic Group | Unknown | + + + Author + + + | Author | [facility] | | | and [place] | + + + | Organization | [facility] | | | [...] | | | | [place] [address] | | + + + + + | Emory Larios | ECON | Unknown | | + + + + + Care Team Providers + +------+ + | Care Instrument Inspector Name | Role | Phone | + +------+ + | Shannan Deng | PCP | | + +------+ + Encounter Details +--------+ + + + + | Date | Type | Department | Care Team | Description | +--------+ + + + + | 09/03/ | Hospital | [facility] | Yancy Clifford MD | 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) | | | | SERVICES [address] | [place] | (Primary Dx) | | | | [address] [place] | [address] | | | | | [address] [place] | | | | | | [address] | | | | | | [phone] | | | +--------+ + + + [...] | | | 2019 | | | [address] | | | | | | [place] | | | | | | [address] | | | | | | | | +--------+ + + + + | 12/17/ | Office | Oncology | Yancy Clifford MD | | | 2019 | Visit | | [address] | | | | | | [place] | | | | | | [address] | | | | | | | | +--------+ + + + + | 12/17/ | Appointment | Infusion Therapy | Yancy Clifford MD | | | 2019 | | | [address] | | | | | | [place] | | | | | | [address] | | | | | | | | +--------+ + + + + | 01/07/ | Appointment | Infusion Therapy | Yancy Clifford MD | | | 2019 | | | [address] | | | | | | [place] | | | | | | [address] | | | | | | | | +--------+ + + + + | 01/07/ | Office | Oncology | Yancy Clifford MD | | | 2019 | Visit | | [address] | | | | | | [place] | | | | | | [address] | | | | | | | | +--------+ + + + + | 01/07/ | Appointment | Infusion Therapy | Yancy Clifford MD | | | 2019 | | | [address] | | | | | | [place] | | | | | | [address] | | | | | | | [...] | | | | Performed at [facility], [address] | | [facility] | | | | [address] | | LABORATORY | | | | [address], [place] | | | | | | [address] | | | | + + + + + + + + | Specimen | + + | | + + + + + + + | Performing | Address | City/State/Zipcode | Phone Number | | Organization | | | | + + + + + | REFERENCE LAB | [address] [place] [address] | [place] [address] | [phone] | | [facility] | Blvd. | | | | LABORATORY | | | | + + + + + | REFERENCE LAB | [address] [place] [address] | [place] [address] | | | [facility] | Blvd. | [...] | | | | performed at [facility];[address] | | [facility] | | | | [address] | | LABORATORY | | | | Blvd;[place] [address] | | | | | | | | | | + + + + + + + + | Specimen | + + | | + + + + + + + | Performing | Address | City/State/Zipcode | Phone Number | | Organization | | | | + + + + + | REFERENCE LAB | [address] | [place] [address] | [phone] | | [facility] | Blvd[address] | | | | LABORATORY | | | | + + + + + | REFERENCE LAB | [address] | [place] [address] | | | [facility] | Blvd. | [...] | | urine | performed at [facility];[address] | | [facility] | | | | [place] | | LABORATORY | | | | Blvd;[place] [address] | | | | | | | | | | + + + + + + + + | Specimen | + + | | + + + + + + + | Performing | Address | City/State/Zipcode | Phone Number | | Organization | | | | + + + + + | REFERENCE LAB | [address] | [place] [address] | [phone] | | [facility] | Blvd. | | | | LABORATORY | | | | + + + + + | REFERENCE LAB | [address] | [place] [address] | | | [facility] | Blvd. | [...] - 1.030 | REFERENCE | | | [place], | | | LAB | | | [...] | | | | Performed at [facility], [address] | | LAB | | | | [address] | | [facility] | | | | [address], [place] | | LABORATORY | | | | [address] | | | | + + + + + + + + | Specimen | + + | | + + + + + + + | Performing | Address | City/State/Zipcode | Phone Number | | Organization | | | | + + + + + | REFERENCE LAB | [address] [place] [address] | [place] [address] | [phone] | | [facility] | Blvd. | | | | LABORATORY | | | | + + + + + | REFERENCE LAB | [address] [place] [address] | [place] [address] | | | [facility] | Blvd. | [...] | | RATIO,URINE | performed at [facility];[address] | | LAB | | | | [place] | | [facility] | | | | Blvd;[place] [address] | | LABORATORY | | + + + + + + + + | Specimen | + + | | + + + + + + + | Performing | Address | City/State/Zipcode | Phone Number | | Organization | | | | + + + + + | REFERENCE LAB | [address] | [place] [address] | [phone] | | [facility] | Blvd. | | | | LABORATORY | | | | + + + + + | REFERENCE LAB | [address] | [place] [address] | | | [facility] | Blvd. | [...] [place] | | | | | | [address] | | | | + + + + + + + + | Specimen | + + | Blood | + + + + + + + | Performing | Address | City/State/Zipcode | Phone Number | | Organization | | | | + + + + + | REFERENCE LAB | [address] | [place] [address] | [phone] | | [facility] | Blvd. | | | | LABORATORY | | | | + + + + + | REFERENCE LAB | [address] | [place] [address] | | | [facility] | Blvd. | [...] | | LAB | | | | [address] | | [facility] | | | | [address], [place] | | LABORATORY | | | | [address] | | | | + + + + + + + + | Specimen | + + | Blood | + + + + + + + | Performing | Address | City/State/Zipcode | Phone Number | | Organization | | | | + + + + + | REFERENCE LAB | [address] | [place] [address] | [phone] | | [facility] | Blvd. | | | | LABORATORY | | | | + + + + + | REFERENCE LAB | [address] | [place] [address] | | | [facility] | Blvd. | [...]
--- OUTSIDE RECORDS SUMMARY | ~2019-12-09 | XMS | Encounter Summary ---
Demographics + + + | Address | [address] | | | [place] [address] | + + + | Home Phone | | + + + | Preferred Language | Unknown | + + + | Marital Status | | + + + | Yazidism Affiliation | Unknown | + + + | Race | Unknown | + + + | Ethnic Group | Unknown | + + + Author + + + | Author | [facility] | | | and [place] | + + + | Organization | [facility] | | | [...] | | | | [place] [address] | | + + + + + | Emory Larios | ECON | Unknown | | + + + + + Care Team Providers + +------+ + | Care Director Compensation Name | Role | Phone | + +------+ + | Shannan Deng | PCP | | + +------+ + Encounter Details +--------+ + + + + | Date | Type | Department | Care Team | Description | +--------+ + + + + | 09/29/ | Orders Only | [facility] | Conversion | | | 2015 | | CONVERSION [address] | Transaction, | | | | | [address] | Provider Unknown | | | | | [place], [place] | [phone] | | | | | [address] | | | | | | [phone] | | | +--------+ + + + [...] [place] | | | | | | [address] | | | | | | | | +--------+ + + + + | 12/17/ | Office | Oncology | Yancy Clifford MD | | | 2019 | Visit | | [address] | | | | | | [place] | | | | | | [address] | | | | | | | | +--------+ + + + + | 12/17/ | Appointment | Infusion Therapy | Yancy Clifford MD | | | 2019 | | | [address] | | | | | | [place] | | | | | | [address] | | | | | | | | +--------+ + + + + | 01/07/ | Appointment | Infusion Therapy | Yancy Clifford MD | | | 2019 | | | [address] | | | | | | [place] | | | | | | [address] | | | | | | | | +--------+ + + + + | 01/07/ | Office | Oncology | Yancy Clifford MD | | | 2019 | Visit | | [address] | | | | | | [place] | | | | | | [address] | | | | | | | | +--------+ + + + + | 01/07/ | Appointment | Infusion Therapy | Yancy Clifford MD | | | 2019 | | | [address] | | | | | | [place] | | | | | | [address] | | | | | | | | +--------+ + + + + documented as of this encounter Visit Diagnoses Not on filedocumented in this encounter"
--- OUTSIDE RECORDS SUMMARY | ~2019-12-09 | XMS | Encounter Summary ---
Demographics + + + | Address | [address] | | | [place] [address] | + + + | Home Phone | | + + + | Preferred Language | Unknown | + + + | Marital Status | | + + + | Tenriism Affiliation | Unknown | + + + | Race | Unknown | + + + | Ethnic Group | Unknown | + + + Author + + + | Author | [facility] | | | and [place] | + + + | Organization | [facility] | | | [...] | | | | | [place] [address] | | + + + + + | Emory Larios | ECON | Unknown | | + + + + + Care Team Providers + +------+ + | Care Devil Tender Name | Role | Phone | + +------+ + PCP | Unavailable | + +------+ + Encounter Details +--------+ + + + + | Date | Type | Department | Care Team | Description | +--------+ + + + + | 01/15/ | Orders Only | [facility] | Yancy Clifford MD | | | 2019 | | HEMATOLOGY AND | [address] | | | | | ONCOLOGY INFUSIONS | [place], [place] | | | | | [address] | [address] | | | | | [address] [place], [place] | | | | | | [address] | | | | | | [phone] | | | +--------+ + + + [...] [place] | | | | | | [address] | | | | | | | | +--------+ + + + + | 12/17/ | Office | Oncology | Yancy Clifford MD | | | 2019 | Visit | | [address] | | | | | | [place] | | | | | | [address] | | | | | | | | +--------+ + + + + | 12/17/ | Appointment | Infusion Therapy | Yancy Clifford MD | | | 2019 | | | [address] | | | | | | [place] | | | | | | [address] | | | | | | | | +--------+ + + + + | 01/07/ | Appointment | Infusion Therapy | Yancy Clifford MD | | | 2019 | | | [address] | | | | | | [place] | | | | | | [address] | | | | | | | | +--------+ + + + + | 01/07/ | Office | Oncology | Yancy Clifford MD | | | 2019 | Visit | | [address] | | | | | | [place] | | | | | | [address] | | | | | | | | +--------+ + + + + | 01/07/ | Appointment | Infusion Therapy | Yancy Clifford MD | | | 2019 | | | [address] | | | | | | [place] | | | | | | [address] | | | | | | | | +--------+ + + + + documented as of this encounter Procedures + +--------+ + + + | Procedure Name | Priori | Date/Time | Associated Diagnosis | Comments | | | ty | | | | + +--------+ + + + | EXTERNAL LAB: CBC | Routin | 01/15/2019 | | Results for this | | | e | 12:01 AM | | procedure are in the | | | | PST | | results section. | + +--------+ + + + | CA 125, QUANT | Routin | 01/15/2019 | | Results for this | | | e | 12:01 AM | | procedure are in the | | | | PST | | results section. | + +--------+ + + + | COMPREHENSIVE | Routin | 01/15/2019 | | Results for this | | METABOLIC PANEL | e | 12:01 AM | | procedure are in the | | | | PST | | results section. | + +--------+ + + + documented in this encounter Results External Lab: CBC (01/15/2019 12:01 AM PST) + + + + + + | Component | Value | Ref Range | Performed | Pathologist | | | | | At | Signature | + + + + + + | WBC | 6.49 | 3.80 - 11.00 | EXTERNAL | | | | | 10*3/uL | LAB | | + + + + + + | RED CELL | 4.90 | 3.70 - 5.10 | EXTERNAL | | | COUNT | | 10*6/uL | LAB | | + + + + + + | Hgb | 14.2 | 11.3 - 15.5 | EXTERNAL | | | | | g/dL | LAB | | + + + + + + | Hematocrit, | 42.9 | 34.0 - 46.0 % | EXTERNAL | | | POC | | | LAB | | + + + + + + | MCV | 87.5 | 80.0 - 100.0 fL | EXTERNAL | | | | | | LAB | | + + + + + + | MCH | 29.1 | 27.0 - 34.0 pg | EXTERNAL | | | | | | LAB | | + + + + + + | MCHC | 33.2 | 32.0 - 35.5 | EXTERNAL | | | | | g/dL | LAB | | + + + + + + | RDW-CV | 45.1 | 37 - 53 fL | EXTERNAL | | | | | | LAB | | + + + + + + | Platelet | 277 | 150 - 400 | EXTERNAL | | | Count | | 10*3/uL | LAB | | | Plasma | | | | | + + + + + + | MPV | 7.7 | fL | EXTERNAL | | | | | | LAB | | + + + + + + | Differentia | AUTOMATED | | EXTERNAL | | | l Type | | | LAB | | + + + + + + | % Segmented | 67.77 | % | EXTERNAL | | | | | | LAB | | | Neutrophils | | | | | + + + + + + | % | 25.22 | % | EXTERNAL | | | Lymphocytes | | | LAB | | + + + + + + | % Monocytes | 4.76 | % | EXTERNAL | | | | | | LAB | | + + + + + + | % | 1.40 | % | EXTERNAL | | | Eosinophils | | | LAB | | + + + + + + | % Basophils | 0.85 | % | EXTERNAL | | | | | | LAB | | + + + + + + | Absolute | 4.40 | 1.90 - 7.40 | EXTERNAL | | | Segmented | | 10*3/uL | LAB | | | Neutrophils | | | | | + + + + + + | Absolute | 1.64 | 1.00 - 3.90 | EXTERNAL | | | Lymphocytes | | 10*3/uL | LAB | | + + + + + + | Absolute | 0.31 | 0.00 - 0.80 | EXTERNAL | | | Monocytes | | 10*3/uL | LAB | | + + + + + + | Absolute | 0.09 | 0.00 - 0.50 | EXTERNAL | | | Eosinophils | | 10*3/uL | LAB | | + + + + + + | Absolute | 0.06 | 0.00 - 0.10 | EXTERNAL | [...] + +---------+ + + CA 125, Quant (01/15/2019 12:01 AM PST) + + + + + + | Component | Value | Ref Range | Performed | Pathologist | | | | | At | Signature | + + + + + + | CA-125 | 86.0 (H)Comment: THE | 0 - 35 U/mL | EXTERNAL | | | | [facility] ([facility]) | | LAB | | | | ADVIA CENTAUR | | | | | | IMMUNOASSAY METHOD IS | | | | | | USED. RESULTS OBTAINED | | | | | | WITH DIFFERENT ASSAY | | | | | | METHODS OR KITS CANNOT | | | | | | BE USED INTERCHANGEABLY. | | | | + + [...] + +---------+ + + Comprehensive Metabolic Panel (01/15/2019 12:01 AM PST) + + + + + [...] 12 | 5 - 20 mmol/L | EXTERNAL | | | | | | LAB | | + + + + + + | Glucose, | 145 (H) | 65 - 99 mg/dL | EXTERNAL | | | Fasting | | | LAB | | + + + + + + | BUN | 12 | 8 - 25 mg/dL | EXTERNAL | | | | | | LAB | | + + + + + + | Creatinine | 0.70 | 0.50 - 1.00 | EXTERNAL | | | | | mg/dL | LAB | | + + + + + + | BUN/Creatin | 17 | | EXTERNAL | | | ine Ratio | | | LAB | | + + + + + + | Calcium | 9.9 | 8.5 - 10.5 | EXTERNAL | | | | | mg/dL | LAB | | + + + + + + | Protein, | 7.4 | 6.3 - 8.2 g/dL | EXTERNAL | | | Total | | | LAB | | + + + + + + | Albumin | 4.2 | 3.6 - 5.0 g/dL | EXTERNAL | | | | | | LAB | | + + + + + + | Globulin | 3.2 | 1.3 - 4.9 g/dL | EXTERNAL | | | | | | LAB | | + + + + + + | A/G Ratio | 1.3 | 1.0 - 2.4 | EXTERNAL | | | | | | LAB | | + + + + + + | Bilirubin | 0.3 | 0.1 - 1.5 mg/dL | EXTERNAL | | | Total | | | LAB | | + + + + + + | ALP, | 87 | 35 - 115 U/L | EXTERNAL | | | External | | | LAB | | + + + + + + | AST | 10 | 10 - 45 U/L | EXTERNAL | | | | | | LAB | | + + + + + + | ALT | 13 | 10 - 65 U/L | EXTERNAL [...] | | | | using the MDRD IDNY | | | | | | traceable [...]
--- OUTSIDE RECORDS SUMMARY | ~2019-12-09 | XMS | Encounter Summary ---
Demographics + + + | Address | [address] | | | [place] [address] | + + + | Home Phone | | + + + | Preferred Language | Unknown | + + + | Marital Status | | + + + | Episcopal Affiliation | Unknown | + + + | Race | Unknown | + + + | Ethnic Group | Unknown | + + + Author + + + | Author | [facility] | | | and [place] | + + + | Organization | [facility] | | | [...] | | | | [place] [address] | | + + + + + | Emory Larios | ECON | Unknown | | + + + + + Care Team Providers + +------+ + | Care Goldsmith Apprentice Name | Role | Phone | + +------+ + | Shannan Deng | PCP | | + +------+ + Encounter Details +--------+ + + + + | Date | Type | Department | Care Team | Description | +--------+ + + + + | 07/22/ | Orders Only | [facility] | Sushma Marquis | Malignant neoplasm | | 2019 | | INFUSION SUPPORT | A, RN | of left ovary (HCC) | | | | SERVICES [address] | | (Primary Dx) | | | | [address] | | | | | | [address] [place] | | | | | | [address] | | | | | | [phone] | | | +--------+ + + + [...] [place] | | | | | | [address] | | | | | | | | +--------+ + + + + | 12/17/ | Office | Oncology | Yancy Clifford MD | | | 2019 | Visit | | [address] | | | | | | [place] | | | | | | [address] | | | | | | | | +--------+ + + + + | 12/17/ | Appointment | Infusion Therapy | Yancy Clifford MD | | | 2019 | | | [address] | | | | | | [place] | | | | | | [address] | | | | | | | | +--------+ + + + + | 01/07/ | Appointment | Infusion Therapy | Yancy Clifford MD | | | 2019 | | | [address] | | | | | | [place] | | | | | | [address] | | | | | | | | +--------+ + + + + | 01/07/ | Office | Oncology | Yancy Clifford MD | | | 2019 | Visit | | [address] | | | | | | [place] | | | | | | [address] | | | | | | | | +--------+ + + + + | 01/07/ | Appointment | Infusion Therapy | Yancy Clifford MD | | | 2020 | | | [address] | | | | | | [place] | | | | | | [address] | | | | | | | | +--------+ + + + + documented as of this encounter Visit Diagnoses + + | Diagnosis | + + | 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
--- OUTSIDE RECORDS SUMMARY | ~2019-12-09 | XMS | Encounter Summary ---
Demographics + + + | Address | [address] | | | [place] [address] | + + + | Home Phone | | + + + | Preferred Language | Unknown | + + + | Marital Status | | + + + | Hoahaoism Affiliation | Unknown | + + + | Race | Unknown | + + + | Ethnic Group | Unknown | + + + Author + + + | Author | [facility] | | | and [place] | + + + | Organization | [facility] | | | [...] | | | | | [place] [address] | | + + + + + | Emory Larios | ECON | Unknown | | + + + + + Care Team Providers + +------+ + | Care Crew Member Name | Role | Phone | + +------+ + PCP | Unavailable | + +------+ + Encounter Details +--------+ + + + + | Date | Type | Department | Care Team | Description | +--------+ + + + + | 07/09/ | Abstract | [facility] | Patricia Sanchez, | | | 2018 | | HEMATOLOGY AND | Unemployment Benefits Claims Taker | | | | | ONCOLOGY [address] | | | | | [address] | | | | | | [place] | | | | | | [address] | | | | | | [phone] | | | +--------+ + + + [...] [place] | | | | | | [address] | | | | | | | | +--------+ + + + + | 12/17/ | Office | Oncology | Yancy Clifford MD | | | 2019 | Visit | | [address] | | | | | | [place] | | | | | | [address] | | | | | | | | +--------+ + + + + | 12/17/ | Appointment | Infusion Therapy | Yancy Clifford MD | | | 2019 | | | [address] | | | | | | [place] | | | | | | [address] | | | | | | | | +--------+ + + + + | 01/07/ | Appointment | Infusion Therapy | Yancy Clifford MD | | | 2019 | | | [address] | | | | | | [place] | | | | | | [address] | | | | | | | | +--------+ + + + + | 01/07/ | Office | Oncology | Yancy Clifford MD | | | 2019 | Visit | | [address] | | | | | | [place] | | | | | | [address] | | | | | | | | +--------+ + + + + | 01/07/ | Appointment | Infusion Therapy | Yancy Clifford MD | | | 2019 | | | [address] | | | | | | [place] | | | | | | [address] | | | | | | | | +--------+ + + + + documented as of this encounter Visit Diagnoses Not on filedocumented in this encounter"
--- OUTSIDE RECORDS SUMMARY | ~2019-12-09 | XMS | Encounter Summary ---
Demographics + + + | Address | [address] | | | [place] [address] | + + + | Home Phone [...] + + + | Author | [facility] | | | and [place] | + + + | Organization | [facility] | | | and [place] | + + + | Address | Unknown | + + + | Phone | Unavailable | + + + Support + + + + + | Name | Relationship | Address | Phone | + + + + + | Jared Easonrick | ECON | [address] | | | | | [place] [address] | | + + + + + | Emory Larios | ECON | Unknown | | + + + + + Care Team Providers + +------+ + | Care General Office Worker Name | Role | Phone | [...] | | | Ascites, | [place], | [place] [address] | | | | | malignant | [place] [address] | Phone: | | | | | Procedures | Phone: | [phone] | | | | | [place] | [phone] | Fax: | | | | | BEVACIZUMAB | Fax: | [phone] | | | | | INJECTION, | [phone] | | | | | | 10 MG [id number] | | | | | | | - [place] | | | | | | | [...] + + | 10/15/ | Hospital | [facility] | Yancy Clifford MD | Malignant neoplasm | | 2019 | Encounter | HEMATOLOGY AND | [address] | of left ovary (HCC) | | | | ONCOLOGY INFUSIONS | [place] | (Primary Dx); | | | | [address] | [address] | Ascites, malignant | | | | [address]VE [place], [place] | | | | | | [address] | Ekta Kamara RN | | | | | [phone] | | | +--------+ + + + [...] of this encounter Discharge Instructions Patient Instructions Ekta Kamara RN - 10/15/2019 10:15 AM PSTFormatting of this note m ight be different from the original. Discharge Instructions for Chemotherapy Your healthcare provider prescribed a type of medicine therapy for you called chemotherapy. Healthcare providers prescribe chemotherapy for many different types of illnesses, includin g cancer. There are many types of chemotherapy. This sheet provides general guidelines on ho w you can take care ofyourself after your chemotherapy. Mouth care Don t be discouraged if you get mouth sores, even if you are following all your healthcar e provider s instructions. Many people get mouth sores as a side effect of chemotherapy. H ere s what you can do to prevent mouth sores: Keep your mouth clean. Leflore your teeth with a soft-bristle toothbrush after every meal. Ask if you should use a toothpaste with fluoride, or a mixture of 1 teaspoon of salt in 8-ounces of water to brush your teeth. Use an oral swab or special soft toothbrush if your gums bleed during regular brushing. Don't use dental floss if it causes your gums to bleed. Use any mouthwashes given to you as directed. If you can t tolerate regular methods, use salt and baking soda to clean your mouth. M [id number] salt [id number] of baking soda in 1 quart of warm water. Swish and spit. If you wear dentures, you may be told to wear them only when you eat, ask your healthcar e provider. Clean dentures twice a day and soak in antimicrobial solution when you aren't we aring them. Rinse your mouth after each meal. Watch your mouth and tonguefor white patches. Thismay ashly sign of a type of yeast infection (thrush), a common side effect of chemotherapy. Be sure to tell your healthcare pr ovider about these patches. Medicine can be prescribed to treat it. Other home care Here's what else you can do: Try to exercise. Exercise keeps you strong and keeps your heart and lungs active. Walkin g and yoga are good types of exercise. Keep clean. During chemotherapy, your body can t fight infection very well. Take short baths or showers. ? Wash your hands before you eat and after going to the bathroom. ? Use moisturizing soap. Chemotherapy can make your skin dry. ? Apply moisturizing lotion several times a day to help relieve dry skin. ? Don t take very hot or very cold showers or baths. Don t be surprised if your chemotherapy causes slight up to your skin usually on the hands and feet. Some medicines used in high doses cause this to happen. Ask for a specia l cream to help relieve the burn and protect your skin. Avoid people who are sick with illnesses and diseases you could catch, such as colds, fl u, measles, or chicken pox as well as people who have recently had vaccinations for these il lnesses. Let your healthcare provider know if your throat is sore. You may have an infection that needs treatment. Remember, many patients feel sick and lose their appetites during treatment. Eat small m eals several times a day to keep your strength up: ? Choose bland foods with little taste or smell if you are reacting strongly to food. ? Be sure to cook all food thoroughly. This kills bacteria and helps you avoid infection. ? Eat foods that are soft. Soft foods are less likely to cause stomach irritation. ? Try to eat a variety of foods for a well-balanced diet. Drink plenty of fluids and eat fo ods with fiber to avoid constipation. When to call your healthcare provider Call your healthcare provider right away if you have any of the following: Unexplained bleeding Trouble concentrating Ongoing fatigue Shortness of breath, wheezing, trouble breathing, or bad cough Rapid, irregular heartbeat, or chest pain Dizziness, lightheadedness Constant feeling of being cold Hives oracut or rash that swells, turns red, feels hot or painful, or begins to ooze Burning when you urinate Yscadix428.4F (38C) ordwain awadas directed by your healthcare provider Date Last Reviewed: 04/01/201619991393-3049 [facility]. [address] [place] [address], [place] [address]. All righ ts reserved. This information is not intended as a substitute for professional medical care. Always follow your healthcare professional's instructions. documented in this encounter Medications at Time [...] documented as of this encounter Progress Notes Ekta Kamara RN - 10/15/2019 10:15 AM PSTPatient presents for C6D1 treatment of Avastin , labs reviewed, seen/cleared by provider for treatment today, orders/plan verified with 2nd RN Leisa. Patient encouraged to call with any questions or concerns. Patient tolerated treatment well, all questions answered, no issues at discharge. Calender printed and given to patient with next appointment: 5 1:30 PM: IVT LAB DRAW with CATRACHITO BOO SS LAB DRAW in [facility] HO INFUSION SUPPORT SERVICES 2:15 PM: Office Visit Extended Appointment starts at 2:30 PM with Yancy Clifford MD in [facility] HEMATOLOGY AND ONCOLOGY 3:00 PM: Onc Infusion with JAZZY CHAIR 14 in [facility] HEMATOLOGY AND ONCOLOGY INFUSIONS Annabella Sanchez RN - 10:15 AM PSTAlteplase 2mg placed in single lumen port. Pt tolerated. Chair Ellis [place] informed port is Alteplased. 50 minutes after Alteplase instilled in port, blood return achieved. Wasted 10 ml of blood to ensure Alteplase out of port line. Flushed with normal saline 10 ml and line infusing wit h normal saline waiting for Avastin to be mixed by pharmacy documented in this encounter Plan of Treatment [...] [place] | | | | | | [address] | | | | | | | | +--------+ + + + + | 12/17/ | Office | Oncology | Yancy Clifford MD | | 2019 | Visit | | [address] | | | | | | [place] | | | | | | [address] | | | | | | | | +--------+ + + + + | 12/17/ | Appointment | Infusion Therapy | Yancy Clifofrd MD | | | 2019 | | | [address] | | | | | | [place] | | | | | | [address] | | | | | | | | +--------+ + + + + | 01/07/ | Appointment | Infusion Therapy | Yancy Clifford MD | | | 2019 | | | [address] | | | | | | [place] | | | | | | [address] | | | | | | | | +--------+ + + + + | 01/07/ | Office | Oncology | Yancy Clifford MD | | | 2019 | Visit | | [address] | | | | | | [place] | | | | | | [address] | | | | | | | | +--------+ + + + + | 01/07/ | Appointment | Infusion Therapy | Yancy Clifford MD | | | 2020 | | | [address] | | | | | | [place] | | | | | | [address] | | | | | | | | +--------+ + + + + documented as of this encounter Visit Diagnoses + + | Diagnosis | + + | 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 | + + | Ascites, malignant Malignant ascites | + + documented in this encounter Administered Medications + +--------+ +------+------+------+ | Medication Order | MAR | Action | Dose | Rate | Site | | | Action | Date | | | | + +--------+ +------+------+------+ | alteplase (CATHFLO ACTIVASE) | Given | 10/15/20 | 2 mg | | | | injection 2 mg 2 mg, | | 19 9:27 | | | | | Intracatheter, ONCE, [facility] 10/15/19 | | AM PST | | | | | at 0935, For 1 dose | | | | | | + +--------+ +------+------+------+ +---+---+ | | | +---+---+ + +---------+ + +-------+---+ | bevacizumab (AVASTIN) 1,300 mg | New Bag | 10/15/20 | 1,300 mg | 304 | | | in sodium chloride 0.9% 152 mL | | 19 11:17 | | mL/hr | | | infusion [...] | | | | | 10/15/19 at 1105, For 1 dose | | | | | | + +---------+ + +-------+---+ +---+---+ | | | +---+---+ + +-------+ +-------+---+---+ | heparin 100 units/mL flush | Given | 10/15/20 | 500 | | | | injection 500 Units 500 Units (5 | | 19 12:00 | Units | | | | mL), Intracatheter, PRN, Line | | PM PST | | | | | Care, Starting Teresa 10/15/19 at | | | | | | | 1155 | | | | | | + +-------+ +-------+---+---+ +---+---+ | | | +---+---+ documented in this encounter"
--- OUTSIDE RECORDS SUMMARY | ~2019-12-09 | XMS | Encounter Summary ---
Demographics + + + | Address | [address] | | | [place] [address] | + + + | Home Phone | | + + + | Preferred Language | Unknown | + + + | Marital Status | | + + + | Scientology Affiliation | Unknown | + + + | Race | Unknown | + + + | Ethnic Group | Unknown | + + + Author + + + | Author | [facility] | | | and [place] | + + + | Organization | [facility] | | | [...] | | | | [place] [address] | | + + + + + | Emory Larios | ECON | Unknown | | + + + + + Care Team Providers + +------+ + | Care Worm Farmer Name | Role | Phone | + +------+ + PCP | Unavailable | + +------+ + Encounter Details +--------+ + + + + | Date | Type | Department | Care Team | Description | +--------+ + + + + | 06/05/ | Hospital | [facility] | Conversion | Encounter for | | 2019 | Encounter | [facility] [address] | Transaction, | antineoplastic | | | | [address] | Provider Unknown | chemotherapy; | | | | [place], [place] | [phone] | Malignant neoplasm | | | | [address] | | of left ovary (HCC); | | | | [phone] | Yancy Clifford MD [address] | | | | | | [address] | Chemotherapy-induced | | | | | [place] [address] | thrombocytopenia; | | | | | [phone] | Epistaxis | | | | | [...] | | | 2019 | | | [address] | | | | | | [place] | | | | | | [address] | | | | | | | | +--------+ + + + + | 12/17/ | Office | Oncology | Yancy Clifford MD | | | 2019 | Visit | | [address] | | | | | | [place] | | | | | | [address] | | | | | | | | +--------+ + + + + | 12/17/ | Appointment | Infusion Therapy | Yancy Clifford MD | | | 2019 | | | [address] | | | | | | [place] | | | | | | [address] | | | | | | | | +--------+ + + + + | 01/07/ | Appointment | Infusion Therapy | Yancy Clifford MD | | | 2019 | | | [address] | | | | | | [place] | | | | | | [address] | | | | | | | | +--------+ + + + + | 01/07/ | Office | Oncology | Yancy Clifford MD | | | 2019 | Visit | | [address] | | | | | | [place] | | | | | | [address] | | | | | | | | +--------+ + + + + | 01/07/ | Appointment | Infusion Therapy | Yancy Clifford MD | | | 2020 | | | [address] | | | | | | [place] | | | | | | [address] | | | | | | | [...]
--- OUTSIDE RECORDS SUMMARY | ~2019-12-09 | XMS | Encounter Summary ---
Demographics + + + | Address | [address] [address] | | | [place] [address] | + + + | Home Phone | | + + + | Preferred Language | Unknown | + + + | Marital Status | | + + + | Anabaptism Affiliation | Unknown | + + + | Race | Unknown | + + + | Ethnic Group | Unknown | + + + Author + + + | Author | [facility] | | | and [place] | + + + | Organization | [facility] | | [...] | | | | [place] [address] | | + + + + + | Emory Larios | ECON | Unknown | | + + + + + Care Team Providers + +------+ + | Care Foil Spinner Name | Role | Phone | + +------+ + PCP | Unavailable | + +------+ + Encounter Details +--------+ + + + + | Date | Type | Department | Care Team | Description | +--------+ + + + + | 04/23/ | Emergency | [facility] | Claude Salinas MD | Epistaxis; | | 2019 | | MEDICAL CENTER | [address] | Thrombocytopenia | | | | EMERGENCY CENTER | [place] [address] | (HCC); Maintenance | | | | [address] | [phone] | chemotherapy; | | | | [place], [place] | | Pancytopenia due to | | | | [address] | | chemotherapy ([facility]) | | | | [phone] | | | +--------+ + + + [...] + + + | Blood Pressure | 146/64 | 04/23/2019 1:27 PM | | | | | PDT | | + + + + + | Pulse | 90 | 04/23/2019 1:27 PM | | | | | PDT | | + + + + + | Temperature | 36.2 C (97.1 F) | 04/23/2019 1:27 PM | | | | | PDT | | + + + + + | Respiratory Rate | 18 | 04/23/2019 1:27 PM | | | | | PDT | | + + + + + | Oxygen Saturation | - | - | | + + + + + | Inhaled Oxygen | - | - | | | Concentration | | | | + + + + + | Weight | 89.2 kg (196 lb 10.4 | 04/23/2019 1:27 PM | | | | oz) | PDT | | + + + + + | Height | - | - | | + + + + + | Body Mass Index | 33.74 | 04/16/2019 12:10 PM | | | | | PDT | | + + + + + documented in this encounter Medications at Time [...] [place] | | | | | | [address] | | | | | | | | +--------+ + + + + | 12/17/ | Office | Oncology | Yancy Clifford MD | | | 2019 | Visit | | [address] | | | | | | [place] | | | | | | [address] | | | | | | | | +--------+ + + + + | 12/17/ | Appointment | Infusion Therapy | Yancy Clifford MD | | | 2019 | | | [address] | | | | | | [place] | | | | | | [address] | | | | | | | | +--------+ + + + + | 01/07/ | Appointment | Infusion Therapy | Yancy Clifford MD | | | 2019 | | | [address] | | | | | | [place] | | | | | | [address] | | | | | | | | +--------+ + + + + | 01/07/ | Office | Oncology | Yancy Clifford MD | | | 2019 | Visit | | [address] | | | | | | [place] | | | | | | [address] | | | | | | | | +--------+ + + + + | 01/07/ | Appointment | Infusion Therapy | Yancy Clifford MD | | | 2019 | | | [address] | | | | | | [place] | | | | | | [address] | | | | | | | | +--------+ + + + + documented as of this encounter Procedures + +--------+ + + + | Procedure Name | Priori | Date/Time | Associated Diagnosis | Comments | | | ty | | | | + +--------+ + + + | EXTERNAL LAB: CBC | Routin | 04/23/2019 | | Results for this | | | e | 10:48 AM | | procedure are in the | | | | PDT | | results section. | + +--------+ + + + | ARIELLAIME INR | Routin | 04/23/2019 | | Results for this | | | e | 10:48 AM | | procedure are in the | | | | PDT | | results section. | + +--------+ + + + | COMPREHENSIVE | Routin | 04/23/2019 | | Results for this | | METABOLIC PANEL | e | 10:48 AM | | procedure are in the | | | | PDT | | results section. | + +--------+ + + + documented in this encounter Results Protime INR (04/23/2019 10:48 AM PDT) + + + + + + | Component | Value | Ref Range | Performed | Pathologist | | | | | At | Signature | + + + + + + | INR | 1.0Comment: REFERENCE | | EXTERNAL | | | | RANGE:0.9 - 1.2 | | LAB | | | | NON-ANTICOAGULATED2.0 | | | | | | - 3.0 ALL OTHER | | | | | | THERAPEUTIC | | | | | | INDICATIONS2.5 - 3.5 | | | | | | MECHANICAL HEART VALVES, | | | | | | RECURRENT OR SYSTEMIC | | | | | | EMBOLISMTesting | | | | | | performed at [facility];[address] | | | | | | [facility];[place], [place] | | | | | | [address] | | | | + + + + + + + + | Specimen | + + | Blood specimen | | (specimen) | + + + +---------+ + + | Performing | Address | City/State/Zipcode | Phone Number | | Organization | | | | + +---------+ + + | EXTERNAL LAB | | | | + +---------+ + + External Lab: [facility] (04/23/2019 10:48 AM PDT) + + + + + + | Component | Value | Ref Range | Performed | Pathologist | | | | | At | Signature | + + + + + + | WBC | 3.06 (L) | 3.80 - 11.00 | EXTERNAL | | | | | K/uL | LAB | | + + + + + + | RED CELL | 3.20 (L) | 3.70 - 5.10 | EXTERNAL | | | COUNT | | M/uL | LAB | | + + + + + + | Hgb | 10.1 (L) | 11.3 - 15.5 | EXTERNAL | | | | | g/dL | LAB | | + + + + + + | Hematocrit, | 30.5 (L) | 34.0 - 46.0 % | EXTERNAL | | | POC | | | LAB | | + + + + + + | MCV | 95.5 | 80.0 - 100.0 fl | EXTERNAL | | | | | | LAB | | + + + + + + | MCH | 31.6 | 27.0 - 34.0 pg | EXTERNAL | | | | | | LAB | | + + + + + + | MCHC | 33.1 | 32.0 - 35.5 | EXTERNAL | | | | | g/dL | LAB | | + + + + + + | RDW-CV | 78.3 (H) | 37 - 53 fl | EXTERNAL | | | | | | LAB | | + + + + + + | Platelet | 10 (LL)Comment: CALLED | 150 - 400 K/uL | EXTERNAL | | | Count | PHYSICIANREAD BACK | | LAB | | | Plasma | RESULTS VERIFIED | | | | | | IN ED AT 1125 BY CRK | | | | | | IN ED AT 1125 BY GUDELIA | | | | | | | | | | + + + + + + | MPV | 9.1 | fl | EXTERNAL | | | | | | LAB | | + + + + + + | Differentia | AUTOMATED | | EXTERNAL | | | l Type | | | LAB | | + + + + + + | % Segmented | 41.96 | % | EXTERNAL | | | | | | LAB | | | Neutrophils | | | | | + + + + + + | % | 51.26 | % | EXTERNAL | | | Lymphocytes | | | LAB | | + + + + + + | % Monocytes | 6.06 | % | EXTERNAL | | | | | | LAB | | + + + + + + | % | 0.22 | % | EXTERNAL | | | Eosinophils | | | LAB | | + + + + + + | % Basophils | 0.50 | % | EXTERNAL | | | | | | LAB | | + + + + + + | Absolute | 1.28 (L) | 1.90 - 7.40 | EXTERNAL | | | Segmented | | K/uL | LAB | | | Neutrophils | | | | | + + + + + + | Absolute | 1.57 | 1.00 - 3.90 | EXTERNAL | | | Lymphocytes | | K/uL | LAB | | + + + + + + | Absolute | 0.19 | 0.00 - 0.80 | EXTERNAL | | | Monocytes | | K/uL | LAB | | + + + + + + | Absolute | 0.01 | 0.00 - 0.50 | EXTERNAL | | | Eosinophils | | K/uL | LAB | | + + + + + + | Absolute | 0.02 | 0.00 - 0.10 | EXTERNAL | | | Basophils | | K/uL | LAB | | + + + + + + | RBC | 3+ | | EXTERNAL | | | Morphology | Comment: | | LAB | | | | ANISO | | | | | | 1+ | | | | | | MACRO | | | | | | NORMAL PLT MORPH | | | | | | | | | | + + + + + + | Platelet | DECREASEDComment: | | EXTERNAL | | | Estimate | Testing performed at | | LAB | | | | [facility] [address] | | | | | | [place] [address] | | | | + + + [...] + +---------+ + + Comprehensive Metabolic Panel (04/23/2019 10:48 AM PDT) + + + + + + | Component | Value | Ref Range | Performed | Pathologist | | | | | At | Signature | + + + + + + | Na | 143 | 135 - 145 | EXTERNAL | | | | | mmol/L | LAB | | + + + + + + | K | 4.4 | 3.5 - 4.9 | EXTERNAL | | | | | mmol/L | LAB | | + + + + + + | Cl | 110 (H) | 99 - 109 mmol/L | EXTERNAL [...] + + + + | Glucose, | 105 (H) | 65 - 99 mg/dL | EXTERNAL | | | Fasting | | | LAB | | + + + + + + | BUN | 13 | 8 - 25 mg/dL | EXTERNAL | | | | | | LAB | | + + + + + + | Creatinine | 0.66 | 0.50 - 1.00 | EXTERNAL | | | | | mg/dL | LAB | | + + + + + + | BUN/Creatin | 20 | | EXTERNAL | | | ine Ratio | | | LAB | | + + + + + + | Calcium | 8.9 | 8.5 - 10.5 | EXTERNAL | | | | | mg/dL | LAB | | + + + + + + | Protein, | 6.7 | 6.3 - 8.2 g/dL | EXTERNAL | | | Total | | | LAB | | + + + + + + | Albumin | 4.1 | 3.6 - 5.0 g/dL | EXTERNAL | | | | | | LAB | | + + + + + + | Globulin | 2.6 | 1.3 - 4.9 g/dL | EXTERNAL | | | | | | LAB | | + + + + + + | A/G Ratio | 1.6 | 1.0 - 2.4 | EXTERNAL | | | | | | LAB | | + + + + + + | Bilirubin | 0.6 | 0.1 - 1.5 mg/dL | EXTERNAL | | | Total | | | LAB | | + + + + + + | ALP, | 84 | 35 - 115 U/L | EXTERNAL | | | External | | | LAB | | + + + + + + | AST | 14 | 10 - 45 U/L | EXTERNAL | | | | | | LAB | | + + + + + + | ALT | 16 | 10 - 65 U/L | EXTERNAL | | | | | | LAB | | + + + + + + | Estimated | >60Comment: GFR <60: | mL/min/1.73m2 | EXTERNAL | | | GFR | CHRONIC KIDNEY DISEASE, | | LAB | | | | IF FOUND OVER A 3 MONTH | | | | | | PERIOD.GFR <15: KIDNEY | | | | | | FAILURE.FOR | | | | | | AMERICANS, MULTIPLY THE | | | | | | CALCULATED GFR BY | | | | | | 1.210.This eGFR is | | | | | | calculated using the | | | | | | MDRD IDOR traceable | | | | | | equation.Testing | | | | | | performed at [facility];[address] | | | | | | [facility];[place], [place] | | | | | | [address] | | | | + + + [...] + | Diagnosis | + + | Epistaxis | + + | Thrombocytopenia (HCC) Thrombocytopenia, unspecified | + + | Maintenance chemotherapy Encounter for antineoplastic chemotherapy | + + | Pancytopenia due to chemotherapy (HCC) Antineoplastic chemotherapy induced | | pancytopenia | + + documented in this encounter"
--- OUTSIDE RECORDS SUMMARY | ~2019-12-09 | XMS | Clinical Summary ---
Demographics + + + | Address | [address] | | | [place] [address] | + + + | Home Phone | | + + + | Preferred Language | Unknown | + + + | Marital Status | | + + + | Evangelical Affiliation | Unknown | + + + | Race | Unknown | + + + | Ethnic Group | Unknown | + + + Author + + + | Author | [facility] | | | and [place] | + + + | Organization | [facility] | | [...] | | | | [place] [address] | | + + + + + | Emory Larios | ECON | Unknown | | + + + + + Care Team Providers + +------+ + | Care Cager Operator Name | Role | Phone | [...] | | | + + + +---------+------+------+-------+ +---+ + | | Additional | | | informationPatient | | | not taking. Reason: | | | other, Reported on | | | 11/27/2019 10:01 AM | +---+ + + + + +---+------+---+-------+ | loratadine | Take 10 mg by mouth | | 0 | 04/01 | | Activ | | (CLARITIN) 10 mg | daily. | | | 05/21 | | e | | tablet | | | | 19 | | | + + + +---+------+---+-------+ | polyethylene | Take 17 g by mouth | | 0 | 05/02 | | Activ | | glycol (MIRALAX) | daily. | | | 01/21 | | e | | packet | | | | 19 | | | + + + +---+------+---+-------+ | lovastatin | Take 20 mg by mouth | | 0 | | | Activ | | (MEVACOR) 20 mg | nightly. | | | | | e | | tablet | | | | | | | + + + +---+------+---+-------+ | lactulose 10 g/15 | Take 15 mLs by mouth | 240 mL | 3 | 10/0 | | Activ | | mL solution | every 2 hours as | | | 3/20 | | e | | | needed. | | | 19 | | | + + + +---+------+---+-------+ | amoxicillin | | | 0 | 12/2 | | Activ | | (AMOXIL) 875 mg | | | | 2/20 | | e | | tablet | | | | 19 | | | + + + +---+------+---+-------+ Active Problems + + + | Problem [...] + + | 11/27/ | Hospital | Infusion Therapy | Yancy Clifford MD | Malignant neoplasm | | 2018 | Encounter | | Yumiko Crocker RN | of left ovary (HCC) | | | | | | (Primary Dx); | | | | | | Ascites, malignant | +--------+ + + + + | 11/27/ | Office | Oncology | Yancy Clifford MD | Malignant neoplasm | | 2019 | Visit | | Jennyfer Calvert | of left ovary (HCC) | | | | | CIERRA Lou | (Primary Dx) | +--------+ + + + + | 11/27/ | Hospital | Infusion Therapy | Yancy Clifford MD | Malignant neoplasm | | 2018 | Encounter | | Anitha Mills | of left ovary (HCC) | | | | | Yulia RN | (Primary Dx) | +--------+ + + + + | 11/23/ | Telephone | Infusion Therapy | Zonia Rivas RN | Triage | | 2018 | | | | | +--------+ + + + + | 11/05/ | Hospital | Infusion Therapy | Yancy Clifford MD | Malignant neoplasm | | 2018 | Encounter | | Jennyfer Carcamo | of left ovary (HCC) | | [...] neoplasm | | 2019 | | | Claim Clerk | of left ovary (HCC); | | [...] | | 2018 | Visit | | Nehal Jennyfer | of left ovary (HCC) | | | | | CIERRA Lou | (Primary Dx) | +--------+ + + + + | 10/15/ | Hospital | Infusion Therapy | Yancy Clifford MD | Malignant neoplasm | 2018 | Encounter | | Ekta Kamara RN [...] Juli Castillo | Malignant neoplasm | | 2018 | | | M, Claim Clerk | of left ovary (HCC); | | [...] ovary (HCC) | | | | | APOLONIA Montiel | (Primary Dx) | +--------+ + + [...] + + + + | Pulse | 99 | 11/27/2019 9:57 AM | | | | | PST | | + + + + + | Temperature | 36.6 C (97.9 F) | 11/27/2019 9:57 AM | | | | | PST | | + + + + + | Respiratory Rate | 16 | 11/27/2019 9:57 AM | | | | | PST | | + + + + + | Oxygen Saturation | 96% | 11/27/2019 9:57 AM | | | | | PST | | + + + + + | Inhaled Oxygen | - | - | | | Concentration | | | | + + + + + | Weight | 83.5 kg (184 lb 1.3 | 11/27/2019 9:57 AM | | | | oz) | PST | | + + + + + | Height | 162.6 cm (5' 4.02") | 11/27/2019 9:57 AM | | | | | PST | | + + + + + | Body Mass Index | 31.58 | 11/27/2019 9:57 AM | | | | | PST [...] [place] | | | | | | [address] | | | | | | | | +--------+ + + + + | 12/17/ | Office | Oncology | Yancy Clifford MD | | | 2019 | Visit | | [address] | | | | | | [...] [place] | | | | | | [address] | | | | | | | | +--------+ + + + + | 01/07/ | Appointment | Infusion Therapy | Yancy Clifford MD | | | 2019 | | | [address] | | | | | | [place] | | | | | | [address] | | | | | | | | +--------+ + + + + | 01/07/ | Office | Oncology | Yancy Clifford MD | | | 2019 | Visit | | [address] | | | | | | [place] | | | | | | [address] | | | | | | | | +--------+ + + + + | 01/07/ | Appointment | Infusion Therapy | Yancy Clifford MD | | | 2019 | | | [address] | | | | | | [place] | | | | | | [address] | | | | | | | [...] + + | URINALYSIS, | Routin | 11/27/2019 | | Results for this | | MICROSCOPIC ONLY | e | 9:39 AM | | procedure are in the | | | | PST | | results section. | + +--------+ + + + | PROTEIN, URINE, | Routin | 11/27/2019 | | Results for this | | RANDOM | e | 9:39 AM | | procedure are in the | | | | PST | | results section. | + +--------+ + + + | CREATININE, URINE, | Routin | 11/27/2019 | | Results for this | | RANDOM | e | 9:39 AM | | procedure are in the | | | | PST | | results section. | + +--------+ + + + | URINALYSIS WITH | Routin | 11/27/2019 | | Results for this | | MICROSCOPIC IF | e | 9:39 AM | | procedure are in the [...] + + | PROTEIN/CREATININE | Routin | 11/27/2019 | Malignant neoplasm | Results for this | | RATIO, URINE | e | 9:39 AM | of left ovary [...] Months Results Urinalysis with Microscopic if Indicated (11/27/2019 9:39 AM PST)Only the most recent of 4 results within the time period is included. + + + + + + | Component | Value | Ref Range | Performed | Pathologist | | | | | At | Signature | + + + + + + | Color, UA | DK YELLOW | | REFERENCE | | | [...] + + + + | Specific | 1.027 | 1.002 - 1.030 | REFERENCE | | | [facility], | | | LAB | | | [...] + + + + | Urobilinoge | 1.0 | <1.1 mg/dL | REFERENCE | | [...] + + + + | Bilirubin, | SMALL (A) | NEG | REFERENCE | | | UA | | | LAB | | | | | | [facility] | | | | | | LABORATORY | | + + + + + + | Glucose, Ur | NEGATIVEComment: Testing | NEG mg/dL | REFERENCE | | | | Performed at [facility], [address] | | LAB | | | | [address] | | [facility] | | | | [address] | | LABORATORY | | | | [address] | | | | + + + + + + + + | Specimen | + + | | + + + + + + + | Performing | Address | City/State/Zipcode | Phone Number | | Organization | | | | + + + + + | REFERENCE LAB | [address] [place] [address] | [place] [address] | [phone] | | [facility] | Blvd. | | | | LABORATORY | | | | + + + + + | REFERENCE LAB | [address] [place] [address] | [place] [address] | | | [facility] | Blvd. | | | | LABORATORY | | | | + + + + + Urinalysis, Microscopic Only (11/27/2019 9:39 AM PST)Only the most recent of 4 results [...] + + + + | SQUAMOUS | >100 | /lpf | REFERENCE | | | EPITHELIAL | | | LAB | | | UA | | | [facility] | | | | | | LABORATORY | | + + + + + + | BACTERIA UA | 1+ (A) | NONE | REFERENCE | | [...] + + + | CASTS | 1-5Comment: HYALINE | /lpf | REFERENCE | | | | | | LAB | | | | | | [facility] | | | | | | LABORATORY | | + + + + + + | CRYSTAL UA | 1+Comment: CALCIUM | /hpf | REFERENCE | | | | OXALATETesting Performed | | LAB | | | | at [facility], [address] | | [facility] | | | | [address] | | LABORATORY | | | | [address], [place] | | | | | | [address] | | | | + + + + + + + + | Specimen | + + | | + + + + + + + | Performing | Address | City/State/Zipcode | Phone Number | | Organization | | | | + + + + + | REFERENCE LAB | [address] [place], [place] [address] | [place] [address] | [phone] | | [facility] | Blvd. | | | | LABORATORY | | | | + + + + + | REFERENCE LAB | [address] [place], [place] [address] | [place] [address] | | | [facility] | Blvd. | | | | LABORATORY | | | | + + + + + Protein/Creatinine Ratio, Urine (11/27/2019 9:39 AM PST)Only the most recent of 4 results within the time period is included. + + + + + + | Component | Value | Ref Range | Performed | Pathologist | | | | | At | Signature | + + + + + + | PRO/CREA | 0.418Comment: Testing | | REFERENCE | | | RATIO,URINE | performed at [facility];[address] | | LAB | | | | [facility] | | [facility] | | | | Blvd;[place] [address] | | LABORATORY | | + + + + + + + + | Specimen | + + | Urine | + + + + + + + | Performing | Address | City/State/Zipcode | Phone Number | | Organization | | | | + + + + + | REFERENCE LAB | [address] [place] [address] | [place] [address] | [phone] | | [facility] | Blvd. | | | | LABORATORY | | | | + + + + + | REFERENCE LAB | [address] [place] [address] | [place] [address] | | | [facility] | Blvd. | | | | LABORATORY | | | | + + + + + Protein, Urine, Random (11/27/2019 9:39 AM PST)Only the most recent of 4 results within time period is included. + + + + + + | Component | Value | Ref Range | Performed | Pathologist | | | | | At | Signature | + + + + + + | Protein, | 110Comment: NO NORMAL | mg/dL | REFERENCE | | | Urine | RANGE ESTABLISHEDTesting | | LAB | | | | performed at [facility];[address] | | [facility] | | | | [facility] | | LABORATORY | | | | Blvd;[place] [address] | | | | | | | | | | + + + + + + + + | Specimen | + + | | + + + + + + + | Performing | Address | City/State/Zipcode | Phone Number | | Organization | | | | + + + + + | REFERENCE LAB | [address] [place] [address] | [place] [address] | [phone] | | [facility] | Blvd. | | | | LABORATORY | | | | + + + + + | REFERENCE LAB | [address] [place] [address] | [place] [address] | | | [facility] | Blvd. | | | | LABORATORY | | | | + + + + + Creatinine, Urine, Random (11/27/2019 9:39 AM [facility])Only the most recent of 4 results within the time period is included. + + + + + + | Component | Value | Ref Range | Performed | Pathologist | | | | | At | Signature | + + + + + + | Creatinine, | 263.0Comment: NO NORMAL | mg/dL | REFERENCE | | | random | RANGE ESTABLISHEDTesting | | LAB | | | urine | performed at [facility];[address] | | [facility] | | | | [facility] | | LABORATORY | | | | Blvd;[place] [address] | | | | | | | | | | + + + + + + + + | Specimen | + + | | + + + + + + + | Performing | Address | City/State/Zipcode | Phone Number | | Organization | | | | + + + + + | REFERENCE LAB | [address] [facility] | [place] [address] | [phone] | | [facility] | Blvd. | | | | LABORATORY | | | | + + + + + | REFERENCE LAB | [address] | [place] [address] | | | [facility] | Blvd. | | | | LABORATORY | | | | + + + + + CBC with Differential (11/27/2019 9:39 AM PST)Only the most recent of 4 results [...] | | | Estimate | Performed at [facility], [address] | | LAB | | | | [address] | | [facility] | | | | [address], [place] | | LABORATORY | | | | [address] | | | | + + + + + + + + | Specimen | + + | Blood | + + + + + + + | Performing | Address | City/State/Zipcode | Phone Number | | Organization | | | | + + + + + | REFERENCE LAB | [address] [place] [address] | [place] [address] | [phone] | | [facility] | Blvd. | | | | LABORATORY | | | | + + + + + | REFERENCE LAB | [address] [place] [address] | [place] [address] | | | [facility] | Blvd. | | | | LABORATORY | | | | + + + + + Comprehensive Metabolic Panel (11/27/2019 9:39 AM PST)Only the most recent of 4 results [...] [facility] | | | | Blvd;[place] [address] | | LABORATORY | | + + + + + + | K | 4.3Comment: Testing | 3.5 - 4.9 | REFERENCE | | | | performed at [facility];[address] | mmol/L | LAB | | | | [place] | | [facility] | | | | Blvd;[place] [address] | | LABORATORY | | + + + + + + | Cl | 106Comment: Testing | 99 - 109 mmol/L | REFERENCE | | | | performed at [facility];[address] | | LAB | | | | [place] | | [facility] | | | | Blvd;[place] [address] | | LABORATORY | | + + + + + + | CO2 | 27Comment: Testing | 23 - 32 mmol/L | REFERENCE | | | | Performed at [facility], [address] | | LAB | | | | [address] | | [facility] | | | | [address], [place] | | LABORATORY | | | | [address] | | | | + + + + + + | Anion Gap | 9Comment: Testing | 5 - 20 mmol/L | REFERENCE | | | | performed at [facility];[address] | | LAB | | | | [place] | | [facility] | | | | Blvd;[place] [address] | | LABORATORY | | + + [...] | | | | | | [address], [place] | | | | | | [address] | | | | + + + + + + + + | Specimen | + + | Blood | + + + + + + + | Performing | Address | City/State/Zipcode | Phone Number | | Organization | | | | + + + + + | REFERENCE LAB | [address] [place] [address] | [place] [address] | [phone] | | [facility] | Blvd. | | | | LABORATORY | | | | + + + + + | REFERENCE LAB | [address] [place] [address] | [place] [address] | | | [facility] | Blvd. | [...] REFERENCE | | | | [facility] | | LAB | | | | [facility] | | [facility] | | | | [...] | | | | | [facility];[address] | | | | | | Bl;[place] [address] | | | | | | | | | | + + + + + + + + | Specimen | + + | Blood | + + + + + + + | Performing | Address | City/State/Zipcode | Phone Number | | Organization | | | | + + + + + | REFERENCE LAB | [address] [place] [address] | [place] [address] | [phone] | | [facility] | Blvd. | | | | LABORATORY | | | | + + + + + | REFERENCE LAB | [address] [place] [address] | [place] [address] | | | [facility] | Blvd. | | | | LABORATORY [...] +--------+ +---------+--------+ | MEDICARE | MEDICA | [id number] | 05/02/20 | [phone] | | Medica | | | RE | | 17-Pre | 5 | | re | | | PART A | | sent | | | | | | AND B | | | | | | + +--------+ +--------+ +---------+--------+ | COORDINATED CARE | COORDI | [id number] | 04/01/20 | | | Medica | [...] +---------+--------+ | MEDICAID [place] | MEDICA | [id number] | 07/04/20 | [phone] | | Medica [...] Person | Self [birth year] | [address] | | | al/Fam | | 1959 | | [place], | | | ever | | | [address] (Home) | [place] [address] | + +--------+ +--------+ + + | Ramila Lopez | Person | Self | [birth year] | | [address] | | | al/Fam | | 1959 | [id number] | [place] [address] [place], | | | ever | | | [address] (Home) | [place] [address] | + +--------+ +--------+ + + Advance Directives + + + + + | Type | Date Recorded | Patient | Explanation | | | | Computer Education Teacher | | + + + + + | Power of | | | | | Forest And Conservation Worker | | | | + + + + + | Advance | | | | | Directive | | | | + + + + +
--- OUTSIDE RECORDS SUMMARY | ~2019-12-09 | XMS | Encounter Summary ---
Demographics + + + | Address | [address] | | | [place] [address] | + + + | Home Phone | | + + + | Preferred Language | Unknown | + + + | Marital Status | | + + + | Adventism Affiliation | Unknown | + + + | Race | Unknown | + + + | Ethnic Group | Unknown | + + + Author + + + | Author | [facility] | | | and [place] | + + + | Organization | [facility] | | | [...] | | | | [place] [address] | | + + + + + | Emory Larios | ECON | Unknown | | + + + + + Care Team Providers + +------+ + | Care Sexual Abuse Counsellor Name | Role | Phone | + [...] | | | (HCC) | AVE | [place] | | | | | Encounter | [place], | [address] | | | | | for | [place] [address] | Phone: | | | | | antineoplast | Phone: | [phone] | | | | | ic | [phone] | Fax: | | | | | chemotherapy | Fax: | [phone] | | | | | Peritoneal | [phone] | | | | | | | [...] + + | 08/13/ | Office | [facility] | Scott Boswell MD | Personal history of | | 2019 | Visit | PULMONOLOGY [address] | tobacco use, | | | | [address] | [place], [place] | presenting hazards | | | | [place], [place] | [address] | to health (Primary | | | | [address] | | Dx); Mild | | | | [phone] | | intermittent asthma, | | | [...] Boswell MD Pulmonary and Critical Care Medicine [facility] [address] , [place] [address] documented in this enco unter Plan of Treatment +--------+ + + + + | Date | Type | Specialty | Care Team | Description | +--------+ + + + + | 12/17/ | Appointment | Infusion Therapy | Yancy Clifford MD | | | 2019 | | | [address] | | | | | | [place] | | | | | | [address] | | | | | | | | +--------+ + + + + | 12/17/ | Office | Oncology | Yancy Clifford MD | | | 2019 | Visit | | [address] | | | | | | [place] | | | | | | [address] | | | | | | | | +--------+ + + + + | 12/17/ | Appointment | Infusion Therapy | Yancy Clifford MD | | | 2019 | | | [address] | | | | | | [place] | | | | | | [address] | | | | | | | | +--------+ + + + + | 01/07/ | Appointment | Infusion Therapy | Yancy Clifford MD | | | 2019 | | | [address] | | | | | | [place] | | | | | | [address] | | | | | | | | +--------+ + + + + | 01/07/ | Office | Oncology | Yancy Clifford MD | | | 2019 | Visit | | [address] | | | | | | [place] | | | | | | [address] | | | | | | | | +--------+ + + + + | 01/07/ | Appointment | Infusion Therapy | Yancy Clifford MD | | | 2019 | | | [address] | | | | | | [place] | | | | | | [address] | | | | | | | | +--------+ + + + + documented as of this encounter Visit Diagnoses + + | Diagnosis | + + | Personal history of tobacco use, presenting hazards to health - Primary | + + | Mild intermittent asthma, unspecified whether complicated | + + documented in this encounter"
--- OUTSIDE RECORDS SUMMARY | ~2019-12-09 | XMS | Encounter Summary ---
Demographics + + + | Address | [address] | | | [place] [address] | + + + | Home Phone [...] | | | | [place] [address] | | + + + + + | Emory Larios | ECON | Unknown | | + + + + + Care Team Providers + +------+ + | Care Civil Division Commander Deputy Sheriff Name | Role | Phone | + [...] Provider Unknown | | | | | [place], [place] | [phone] | | | | | [address] | | | | | | [phone] | | | +--------+ + + + [...] [place] | | | | | | [address] | | | | | | | | +--------+ + + + + | 12/17/ | Office | Oncology | Yancy Clifford MD | | | 2019 | Visit | | [address] | | | | | | [place] | | | | | | [address] | | | | | | | | +--------+ + + + + | 12/17/ | Appointment | Infusion Therapy | Yancy Clifford MD | | | 2019 | | | [address] | | | | | | [place] | | | | | | [address] | | | | | | | | +--------+ + + + + | 01/07/ | Appointment | Infusion Therapy | Yancy Clifford MD | | | 2019 | | | [address] | | | | | | [place] | | | | | | [address] | | | | | | | | +--------+ + + + + | 01/07/ | Office | Oncology | Yancy Clifford MD | | | 2019 | Visit | | [address] | | | | | | [place] | | | | | | [address] | | | | | | | | +--------+ + + + + | 01/07/ | Appointment | Infusion Therapy | Yancy Clifford MD | | | 2019 | | | [address] | | | | | | [place] | | | | | | [address] | | | | | | | | +--------+ + + + + documented as of this encounter Visit Diagnoses Not on filedocumented in this encounter"
--- OUTSIDE RECORDS SUMMARY | ~2019-12-09 | XMS | Encounter Summary ---
Demographics + + + | Address | [address] | | | [place] [address] | + + + | Home Phone [...] | | | | [place] [address] | | + + + + + | Emory Larios | ECON | Unknown | | + + + + + Care Team Providers + +------+ + | Care Security Site Supervisor Name | Role | Phone | + +------+ + | Shannan Deng | PCP | | + +------+ + Encounter Details +--------+ + + + + | Date | Type | Department | Care Team | Description | +--------+ + + + + | 07/23/ | Hospital | [facility] | Yancy Clifford MD | 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) | | | | SERVICES [address] | [place] | | | | | [address] | [id number] | | | | | [address] [place] | | | | | | [address] | Donya Mckeon, | | | | | [phone] | RN | | +--------+ + + [...] documented as of this encounter Progress Notes Donya Mckeon RN - 07/23/2019 9:40 AM PDTPort accessed, blood return noted, labs draw n, flushed with saline and patient kept accessed for treatment today. documented in this encounter Plan of Treatment +--------+ + + + + | Date | Type | Specialty | Care Team | Description | +--------+ + + + + | 12/17/ | Appointment | Infusion Therapy | Yancy Clifford MD | | 2019 | | | [address] | | | | | | [place] | | | | | | [address] | | | | | | | | +--------+ + + + + | 12/17/ | Office | Oncology | Yancy Clifford MD | | 2019 | Visit | | [address] | | | | | | [place] | | | | | | [address] | | | | | | | | +--------+ + + + + | 12/17/ | Appointment | Infusion Therapy | Yancy Clifford MD | | | 2019 | | | [address] | | | | | | [place] | | | | | | [address] | | | | | | | | +--------+ + + + + | 01/07/ | Appointment | Infusion Therapy | Yancy Clifford MD | | | 2019 | | | [address] | | | | | | [place] | | | | | | [address] | | | | | | | | +--------+ + + + + | 01/07/ | Office | Oncology | Yancy Clifford MD | | | 2019 | Visit | | [address] | | | | | | [place] | | | | | | [address] | | | | | | | | +--------+ + + + + | 01/07/ | Appointment | Infusion Therapy | Yancy Clifford MD | | | 2020 | | | [address] | | | | | | [place] | | | | | | [address] | | | | | | | | +--------+ + + + + documented as of this encounter Visit Diagnoses + + | Diagnosis | + + | Malignant neoplasm of left ovary (HCC) Malignant neoplasm of ovary | + + documented in this encounter"
--- OUTSIDE RECORDS SUMMARY | ~2019-12-09 | XMS | Encounter Summary ---
Demographics + + + | Address | [address] | | | [place] [address] | + + + | Home Phone | | + + + | Preferred Language | Unknown | + + + | Marital Status | | + + + | Evangelical Affiliation | Unknown | + + + | Race | Unknown | + + + | Ethnic Group | Unknown | + + + Author + + + | Author | [facility] | | | and [place] | + + + | Organization | [facility] | | | [...] | | | | [place] [address] | | + + + + + | Emory Larios | ECON | Unknown | | + + + + + Care Team Providers + +------+ + | Care Staff Electrical Engineer Name | Role | Phone | + +------+ + | Shannan Deng | PCP | | + +------+ + Encounter Details +--------+ + + + + | Date | Type | Department | Care Team | Description | +--------+ + + + + | 11/05/ | Hospital | [facility] | Yancy Clifford MD | 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) | | | | SERVICES [address] | [place] | (Primary Dx) | | | | [address] [place] | [id number] | | | | | [address] [facility] [place] | | | | | | [address] | Sherrill Javed, | | | | | [phone] | RN | | +--------+ + + [...] | | | 2019 | | | [address] | | | | | | [place] | | | | | | [address] | | | | | | | | +--------+ + + + + | 12/17/ | Office | Oncology | Yancy Clifford MD | | | 2019 | Visit | | [address] | | | | | | [place] | | | | | | [address] | | | | | | | | +--------+ + + + + | 12/17/ | Appointment | Infusion Therapy | Yancy Clifford MD | | | 2019 | | | [address] | | | | | | [place] | | | | | | [address] | | | | | | | | +--------+ + + + + | 01/07/ | Appointment | Infusion Therapy | Yancy Clifford MD | | | 2019 | | | [address] | | | | | | [place] | | | | | | [address] | | | | | | | | +--------+ + + + + | 01/07/ | Office | Oncology | Yancy Clifford MD | | | 2019 | Visit | | [address] | | | | | | [place] | | | | | | [address] | | | | | | | | +--------+ + + + + | 01/07/ | Appointment | Infusion Therapy | Yancy Clifford MD | | | 2019 | | | [address] | | | | | | [place] | | | | | | [address] | | | | | | | [...] [place] | | | | | | [address] | | | | + + + + + + + + | Specimen | + + | | + + + + + + + | Performing | Address | City/State/Zipcode | Phone Number | | Organization | | | | + + + + + | REFERENCE LAB | [address] [place], [place] [address] | [place] [address] | [phone] | | [facility] | Blvd. | | | | LABORATORY | | | | + + + + + | REFERENCE LAB | [address] | [place] [address] | | | [facility] | Blvd. | [...] LAB | | | | performed at [facility];[address] | | [facility] | | | | [place] | | LABORATORY | | | | Blvd;[place] [address] | | | | | | | | | | + + + + + + + + | Specimen | + + | | + + + + + + + | Performing | Address | City/State/Zipcode | Phone Number | | Organization | | | | + + + + + | REFERENCE LAB | [address] [facility] | [place] [address] | [phone] | | [facility] | Blvd. | | | | LABORATORY | | | | + + + + + | REFERENCE LAB | [address] [facility] | [place] [address] | | | [facility] | Blvd. | [...] | | | urine | performed at [facility];[address] | | [facility] | | | | [place] | | LABORATORY | | | | Blvd;[place] [address] | | | | | | | | | | + + + + + + + + | Specimen | + + | | + + + + + + + | Performing | Address | City/State/Zipcode | Phone Number | | Organization | | | | + + + + + | REFERENCE LAB | [address] [facility] | [place] [address] | [phone] | | [facility] | Blvd. | | | | LABORATORY | | | | + + + + + | REFERENCE LAB | [address] [facility] | [place] [address] | | | [facility] | Blvd. | [...] - 1.030 | REFERENCE | | | [place], | | | LAB | | | [...] REFERENCE | | | | Performed at [facility], [address] | | LAB | | | | [address] | | [facility] | | | | [place] | | LABORATORY | | | | [address] | | | | + + + + + + + + | Specimen | + + | | + + + + + + + | Performing | Address | City/State/Zipcode | Phone Number | | Organization | | | | + + + + + | REFERENCE LAB | [address] [place] [address] | [place] [address] | [phone] | | [facility] | Blvd. | | | | LABORATORY | | | | + + + + + | REFERENCE LAB | [address] [place] [address] | [place] [address] | | | [facility] | Blvd. | [...] | | | RATIO,URINE | performed at [facility];[address] | | LAB | | | | [facility] | | [facility] | | | | vd;[place] [address] | | LABORATORY | | + + + + + + + + | Specimen | + + | | + + + + + + + | Performing | Address | City/State/Zipcode | Phone Number | | Organization | | | | + + + + + | REFERENCE LAB | [address] [place] [address] | [place] [address] | [phone] | | [facility] | Blvd. | | | | LABORATORY | | | | + + + + + | REFERENCE LAB | [address] [place] [address] | [place] [address] | | | [facility] | Blvd. | [...] | | LABORATORY | | | | [address] | | | | + + + + + + + + | Specimen | + + | Blood | + + + + + + + | Performing | Address | City/State/Zipcode | Phone Number | | Organization | | | | + + + + + | REFERENCE LAB | [address] [place] [address] | [place] [address] | [phone] | | [facility] | Blvd. | | | | LABORATORY | | | | + + + + + | REFERENCE LAB | [address] [place] [address] | [place] [address] | | | [facility] | Blvd. | [...] | | | | | performed at [facility];[address] | | | | | | [facility] | | | | | | Blvd;[place] [address] | | | | | | | | | | + + + + + + + + | Specimen | + + | Blood | + + + + + + + | Performing | Address | City/State/Zipcode | Phone Number | | Organization | | | | + + + + + | REFERENCE LAB | [address] [facility] | [place] [address] | [phone] | | [facility] | Blvd. | | | | LABORATORY | | | | + + + + + | REFERENCE LAB | [address] | [place] [address] | | | [facility] | Blvd. | [...]
--- OUTSIDE RECORDS SUMMARY | ~2019-12-09 | XMS | Encounter Summary ---
Demographics + + + | Address | [address] | | | [place] [address] | + + + | Home Phone | | + + + | Preferred Language | Unknown | + + + | Marital Status | | + + + | Restorationism Affiliation | Unknown | + + + | Race | Unknown | + + + | Ethnic Group | Unknown | + + + Author + + + | Author | [facility] | | | and [place] | + + + | Organization | [facility] | | | [...] | | | | [place] [address] | | + + + + + | Emory Larios | ECON | Unknown | | + + + + + Care Team Providers + +------+ + | Care Union Carpenter Name | Role | Phone | + +------+ + PCP | Unavailable | + +------+ + Encounter Details +--------+ + + + + | Date | Type | Department | Care Team | Description | +--------+ + + + + | 04/23/ | Emergency | [facility] | Claude Salinas MD | Epistaxis; | | 2019 | | MEDICAL CENTER | [address] | Thrombocytopenia | | | | EMERGENCY CENTER | [place] [address] | (HCC); Maintenance | | | | [address] | [phone] | chemotherapy; | | | | [place], [place] | | Pancytopenia due to | | | | [address] | | chemotherapy ([facility]) | | | | [phone] | | | +--------+ + + + [...] [place] | | | | | | [address] | | | | | | | | +--------+ + + + + | 12/17/ | Office | Oncology | Yancy Clifford MD | | | 2019 | Visit | | [address] | | | | | | [place] | | | | | | [address] | | | | | | | | +--------+ + + + + | 12/17/ | Appointment | Infusion Therapy | Yancy Clifford MD | | | 2019 | | | [address] | | | | | | [place] | | | | | | [address] | | | | | | | | +--------+ + + + + | 01/07/ | Appointment | Infusion Therapy | Yancy Clifford MD | | | 2019 | | | [address] | | | | | | [place] | | | | | | [address] | | | | | | | | +--------+ + + + + | 01/07/ | Office | Oncology | Yancy Clifford MD | | | 2019 | Visit | | [address] | | | | | | [place] | | | | | | [address] | | | | | | | | +--------+ + + + + | 01/07/ | Appointment | Infusion Therapy | Yancy Clifford MD | | | 2019 | | | [address] | | | | | | [place] | | | | | | [address] | | | | | | | [...] | | | | | performed at [facility];[address] | | | | | | [address] [facility];[place], [place] | | | | | | [address] | | | | + + + [...] | | LAB | | | | [facility] [address] | | | | | | [place] [address] | | | | + + + [...] | | | | | | MDRD IDNM traceable | | | | | | equation.Testing | | | | | | performed at [facility];[address] | | | | | | [facility];[place], [place] | | | | | | [address] | | | | + + + [...]
--- OUTSIDE RECORDS SUMMARY | ~2019-12-09 | XMS | Encounter Summary ---
Demographics + + + | Address | [address] | | | [place] [address] | + + + | Home Phone [...] | | | | | [place] [address] | | + + + + + | Emory Larios | ECON | Unknown | | + + + + + Care Team Providers + +------+ + | Care Community Services Officer Name | Role | Phone | + +------+ + PCP | Unavailable | + +------+ + Encounter Details +--------+ + + + + | Date | Type | Department | Care Team | Description | +--------+ + + + + | 06/29/ | Abstract | [facility] | Adriana Velasco | Malignant neoplasm | | 2019 | | HEMATOLOGY AND | A, BANNER PAINTER | of left ovary (HCC); | | | | ONCOLOGY [address] | | Ascites, malignant | | | | [address] | | | | | | [place] | | | | | | [address] | | | | | | [phone] | | | +--------+ + + + [...] + + + + | Weight | 85.5 kg (188 lb 6.4 | 06/12/2019 9:02 AM | | | | oz) | PDT | | + + + + + | Height | 162.6 cm (5' 4") | 06/12/2019 9:02 AM | | | | | PDT | | + + + + + | Body Mass Index | 32.34 | 06/12/2019 9:02 AM | | | | | PDT | | + + + + + documented in this encounter Plan of Treatment [...] [place] | | | | | | [address] | | | | | | | | +--------+ + + + + | 12/17/ | Appointment | Infusion Therapy | Yancy Clifford MD | | | 2019 | | | [address] | | | | | | [place] | | | | | | [address] | | | | | | | | +--------+ + + + + | 01/07/ | Appointment | Infusion Therapy | Yancy Clifford MD | | | 2019 | | | [address] | | | | | | [place] | | | | | | [address] | | | | | | | | +--------+ + + + + | 01/07/ | Office | Oncology | Yancy Clifford MD | | | 2019 | Visit | | [address] | | | | | | [place] | | | | | | [address] | | | | | | | | +--------+ + + + + | 01/07/ | Appointment | Infusion Therapy | Yancy Clifford MD | | | 2019 | | | [address] | | | | | | [place] | | | | | | [address] | | | | | | | | +--------+ + + + + documented as of this encounter Visit Diagnoses + + | Diagnosis | + + | Malignant neoplasm of left ovary (HCC) Malignant neoplasm of ovary | + + | Ascites, malignant Malignant ascites | + + documented in this encounter
--- OUTSIDE RECORDS SUMMARY | ~2019-12-09 | XMS | Encounter Summary ---
Demographics + + + | Address | [address] | | | [place] [address] | + + + | Home Phone [...] | | | | [place] [address] | | + + + + + | Emory Larios | ECON | Unknown | | + + + + + Care Team Providers + +------+ + | Care Drug Abuse Social Worker Name | Role | Phone [...] | | | 2018 | | [address] [facility] | [address] | | | | | [facility] | [place] | | | | | [address] | [id number] | | | | | [phone] | | | +--------+ + + + [...] [place] | | | | | | [address] | | | | | | | | +--------+ + + + + | 12/17/ | Office | Oncology | Yanyc Clifford MD | | | 2019 | Visit | | [address] | | | | | | [place] | | | | | | [address] | | | | | | | | +--------+ + + + + | 12/17/ | Appointment | Infusion Therapy | Yancy Clifford MD | | | 2019 | | | [address] | | | | | | [place] | | | | | | [address] | | | | | | | | +--------+ + + + + | 01/07/ | Appointment | Infusion Therapy | Yancy Clifford MD | | | 2019 | | | [address] | | | | | | [place] | | | | | | [address] | | | | | | | | +--------+ + + + + | 01/07/ | Office | Oncology | Yancy Clifford MD | | | 2019 | Visit | | [address] | | | | | | [place] | | | | | | [address] | | | | | | | | +--------+ + + + + | 01/07/ | Appointment | Infusion Therapy | Yancy Clifford MD | | | 2019 | | | [address] | | | | | | [place] | | | | | | [address] | | | | | | | [...] | | | | using the MDRD IDNV | | | | | | traceable [...]
--- OUTSIDE RECORDS SUMMARY | ~2019-12-09 | XMS | Encounter Summary ---
Demographics + + + | Address | [address] | | | [place] [address] | + + + | Home Phone | | + + + | Preferred Language | Unknown | + + + | Marital Status | | + + + | Druze Affiliation | Unknown | + + + | Race | Unknown | + + + | Ethnic Group | Unknown | + + + Author + + + | Author | [facility] | | | and [place] | + + + | Organization | [facility] | | [...] | | | | [place] [address] | | + + + + + | Emory Larios | ECON | Unknown | | + + + + + Care Team Providers + +------+ + | Care Lead Supply Worker Name | Role | Phone | + +------+ + PCP | Unavailable | + +------+ + Encounter Details +--------+ + + + + | Date | Type | Department | Care Team | Description | +--------+ + + + + | 06/14/ | Hospital | [facility] | Conversion | Back pain, | | 2015 | Encounter | CONVERSION DEP [address] | Transaction, | unspecified location | | | [address] | Provider Unknown | | | | | [place], [place] | | | | | | [address] | (Fax) | | | | | | | [...] [place] | | | | | | [address] | | | | | | | | +--------+ + + + + | 12/17/ | Office | Oncology | Yancy Clifford MD | | | 2019 | Visit | | [address] | | | | | | [place] | | | | | | [address] | | | | | | | | +--------+ + + + + | 12/17/ | Appointment | Infusion Therapy | Yancy Clifford MD | | | 2019 | | | [address] | | | | | | [place] | | | | | | [address] | | | | | | | | +--------+ + + + + | 01/07/ | Appointment | Infusion Therapy | Yancy Clifford MD | | | 2019 | | | [address] | | | | | | [place] | | | | | | [address] | | | | | | | | +--------+ + + + + | 01/07/ | Office | Oncology | Yancy Clifford MD | | | 2019 | Visit | | [address] | | | | | | [place] | | | | | | [address] | | | | | | | | +--------+ + + + + | 01/07/ | Appointment | Infusion Therapy | Yancy Clifford MD | | | 2019 | | | [address] | | | | | | [place] | | | | | | [address] | | | | | | | | +--------+ + + + + documented as of this encounter Procedures + +--------+ + + + | Procedure Name | Priori | Date/Time | Associated Diagnosis | Comments | | | ty | | | | + +--------+ + + + | MRI LUMBAR SPINE WO | Routin | 05/27/2015 | | Results for this | | CONTRAST | e | 1:46 PM | | procedure are in the | | | | PDT | | results section. | + +--------+ + + + documented in this encounter Results MRI Lumbar Spine wo Contrast (05/27/2015 1:46 PM PDT) + + | Specimen | + + | | + + + + + | Narrative | Performed At | + + + | This is a non-reportable procedure without a radiologist report and | | | is used for image storage only | | + + + + + | Procedure Note | + + | Chris Mireles - 07/17/2019 9:29 AM PDT This is a non-reportable procedure | | without a radiologist report and isused for image storage only | + + documented in this encounter Visit Diagnoses + + | Diagnosis | + + | Back pain, unspecified location | + + documented in this encounter"
--- OUTSIDE RECORDS SUMMARY | ~2019-12-09 | XMS | Encounter Summary ---
Demographics + + + | Address | [address] | | | [place] [address] | + + + | Home Phone [...] | | | | [place] [address] | | + + + + + | Emory Larios | ECON | Unknown | | + + + + + Care Team Providers + +------+ + | Care Head Rigger Name | Role | Phone | + [...] | | ECHO | [address] | [place], [place] | | | | | Complete | [place] | [address] | | | | | | [address] | Phone: | | | | | | Phone: | [phone] | | | | | | [phone] | Fax: | | | | | | Fax: | [phone] | | | | | | [phone] | | +--------+--------+ + + + + Encounter Details +--------+ + + + + | Date | Type | Department | Care Team | Description | +--------+ + + + + | 08/04/ | Orders Only | [facility] | Scott Boswell MD | Pulmonary HTN (HCC) | | 2019 | | PULMONOLOGY [address] | [address] | (Primary Dx) | | | | [address] | [place], [place] | | | | | [place], [place] | [address] | | | | | [address] | | | | | | [phone] | | | +--------+ + + + [...] [place] | | | | | | [address] | | | | | | | | +--------+ + + + + | 01/07/ | Office | Oncology | Yancy Clifford MD | | | 2019 | Visit | | [address] | | | | | | [place] | | | | | | [address] | | | | | | | | +--------+ + + + + | 01/07/ | Appointment | Infusion Therapy | Yancy Clifford MD | | | 2019 | | | [address] | | | | | | [place] | | | | | | [address] | | | | | | | | +--------+ + + + + + + +--------+ + + | Name | Type | Priori | Associated Diagnoses | Order Schedule | | | | ty | | | + + +--------+ + + | ECHO Complete | Echocardiog | Routin | Pulmonary HTN | Expected: | | | pipo | e | ([facility]) | 08/04/2019, Expires: | | | | | | 08/04/2020 | + + +--------+ + + documented as of this encounter Visit Diagnoses + + | Diagnosis | + + | Pulmonary HTN (HCC) - Primary Other chronic pulmonary heart diseases | + + documented in this encounter"
--- OUTSIDE RECORDS SUMMARY | ~2019-12-09 | XMS | Encounter Summary ---
Demographics + + + | Address | [address] | | | [place] [address] | + + + | Home Phone [...] | | | | [place] [address] | | + + + + + | Emory Larios | ECON | Unknown | | + + + + + Care Team Providers + +------+ + | Care Dredge Pipe Installer Name | Role | Phone | + +------+ + | Shannan Deng | PCP | | + +------+ + Encounter Details +--------+ + + + + | Date | Type | Department | Care Team | Description | +--------+ + + + + | 09/24/ | Hospital | [facility] | Yancy Clifford MD | 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) | | | | SERVICES [address] | [place] | (Primary Dx) | | | | [address] [place] | [id number] | | | | | [address] [place] | | | | | | [address] | Sushma Marquis | | | | | [phone] | Tiana RN | | +--------+ + [...] 1:44 PM PDTPort accessed for lab draw. nuclear technologist nique maintained throughout procedure. Saline locked, left accessed for treatment. Urine s ample obtained. do cumented in this encounter Plan of Treatment +--------+ + + + + | Date | Type | Specialty | Care Team | Description | +--------+ + + + + | 12/17/ | Appointment | Infusion Therapy | Yancy Clifford MD | | | 2019 | | | [address] | | | | | | [place] | | | | | | [address] | | | | | | | | +--------+ + + + + | 12/17/ | Office | Oncology | Yancy Clifford MD | | | 2019 | Visit | | [address] | | | | | | [place] | | | | | | [address] | | | | | | | | +--------+ + + + + | 12/17/ | Appointment | Infusion Therapy | Yancy Clifford MD | | | 2019 | | | [address] | | | | | | [place] | | | | | | [address] | | | | | | | | +--------+ + + + + | 01/07/ | Appointment | Infusion Therapy | Yancy Clifford MD | | | 2019 | | | [address] | | | | | | [place] | | | | | | [address] | | | | | | | | +--------+ + + + + | 01/07/ | Office | Oncology | Yancy Clifford MD | | | 2019 | Visit | | [address] | | | | | | [place] | | | | | | [address] | | | | | | | | +--------+ + + + + | 01/07/ | Appointment | Infusion Therapy | Yancy Clifford MD | | | 2020 | | | [address] | | | | | | [place] | | | | | | [address] | | | | | | | [...] [facility] | | | | Blvd;[place] [address] | | LABORATORY | | + + + + + + | K | 4.1Comment: Testing | 3.5 - 4.9 | REFERENCE | | | | performed at [facility];[address] | mmol/L | LAB | | | | [place] | | [facility] | | | | [address];[place] [address] | | LABORATORY | | + + + + + + | Cl | 104Comment: Testing | 99 - 109 mmol/L | REFERENCE | | | | performed at [facility];[address] | | LAB | | | | [place] | | [facility] | | | | Blvd;[place] [address] | | LABORATORY | | + + + + + + | CO2 | 26Comment: Testing | 23 - 32 mmol/L | REFERENCE | | | | Performed at [facility], [address] | | LAB | | | | [address] | | [facility] | | | | [address], [place] | | LABORATORY | | | | [address] | | | | + + + + + + | Anion Gap | 10Comment: Testing | 5 - 20 mmol/L | REFERENCE | | | | performed at [facility];[address] | | LAB | | | | [facility] | | [facility] | | | | Blvd;[place] [address] | | LABORATORY | | + + [...] [place] | | | | | | [address] | | | | + + + + + + + + | Specimen | + + | Blood | + + + + + + + | Performing | Address | City/State/Zipcode | Phone Number | | Organization | | | | + + + + + | REFERENCE LAB | [address] [place] [address] | [place] [address] | [phone] | | [facility] | Blvd. | | | | LABORATORY | | | | + + + + + | REFERENCE LAB | [address] [place] [address] | [place] [address] | | | [facility] | Blvd. | [...] | | LABORATORY | | | | [address] | | | | + + + + + + + + | Specimen | + + | Blood | + + + + + + + | Performing | Address | City/State/Zipcode | Phone Number | | Organization | | | | + + + + + | REFERENCE LAB | [address] | [place] [address] | [phone] | | [facility] | Blvd[address] | | | | LABORATORY | | | | + + + + + | REFERENCE LAB | [address] | [place] [address] | | | [facility] | Blvd. | [...]
--- OUTSIDE RECORDS SUMMARY | ~2019-12-09 | XMS | Encounter Summary ---
Demographics + + + | Address | [address] | | | [place] [address] | + + + | Home Phone | | + + + | Preferred Language | Unknown | + + + | Marital Status | | + + + | Sabianism Affiliation | Unknown | + + + [...] | | | | [place] [address] | | + + + + + | Emory Larios | ECON | Unknown | | + + + + + Care Team Providers + +------+ + | Care Survey Engineer Name | Role | Phone | [...] 2019 | | [address] | Finishing Machine Operator Automatic | of left ovary (HCC) | | | | [place] | | | | | | [address] | | | | | | [phone] | | | +--------+ + + + [...] | | | 2019 | | | [address] | | | | | | [place] | | | | | | [address] | | | | | | | | +--------+ + + + + | 12/17/ | Office | Oncology | Yancy Clifford MD | | | 2019 | Visit | | [address] | | | | | | [place] | | | | | | [address] | | | | | | | | +--------+ + + + + | 12/17/ | Appointment | Infusion Therapy | Yancy Clifford MD | | | 2019 | | | [address] | | | | | | [place] | | | | | | [address] | | | | | | | | +--------+ + + + + | 01/07/ | Appointment | Infusion Therapy | Yancy Clifford MD | | | 2019 | | | [address] | | | | | | [place] | | | | | | [address] | | | | | | | | +--------+ + + + + | 01/07/ | Office | Oncology | Yancy Clifford MD | | | 2019 | Visit | | [address] | | | | | | [place] | | | | | | [address] | | | | | | | | +--------+ + + + + | 01/07/ | Appointment | Infusion Therapy | Yancy Clifford MD | | | 2020 | | | [address] | | | | | | [place] | | | | | | [address] | | | | | | | [...] | | | | | | TCL;[address] | | | | [address];[place] [address] | | | | | | | | | | + + + + + + + + | Specimen | + + | Blood | + + + + + + + | Performing | Address | City/State/Zipcode | Phone Number | | Organization | | | | + + + + + | [facility]FER[facility] | [address] | [place] [address] | [phone] | | [facility] | Blvd[address] | | | | LABORATORY | | | | + + + + + | [facility] | [address] | [place] [address] | | | [facility] | Blvd. | | | | LABORATORY | | | | + + + + + documented in this encounter Visit Diagnoses + + | Diagnosis | + + | Malignant neoplasm of left ovary (HCC) Malignant neoplasm of ovary | + + documented in this encounter"
--- OUTSIDE RECORDS SUMMARY | ~2019-12-09 | XMS | Encounter Summary ---
Demographics + + + | Address | [address] [address] | | | [place] [address] | + + + | Home Phone [...] | | | | [place] [address] | | + + + + + | Emory Larios | ECON | Unknown | | + + + + + Care Team Providers + +------+ + | Care Complaint Manager Name | Role | Phone | [...] | | | Ascites, | [place], | [place] [address] | | | | | malignant | [place] [address] | Phone: | | | | | Procedures | Phone: | [phone] | | | | | [place] | [phone] | Fax: | | | | | BEVACIZUMAB | Fax: | [phone] | | | | | INJECTION, | [phone] | | | | | | 10 MG [id number] | | | | | | | - [place] | | | | | | | [...] + + | 07/23/ | Hospital | [facility] | Yancy Clifford MD | Malignant neoplasm | | 2019 | Encounter | HEMATOLOGY AND | [address] | of left ovary (HCC) | | | | ONCOLOGY INFUSIONS | [place] | (Primary Dx); | | | | [address] | [address] | Ascites, malignant | | | | AVE [place], [place] | | | | | | [address] | Yumkio Crocker, | | | | | [phone] | RN | | +--------+ + + [...] vein. It is given by a health rn home care in a h ospital or clinic setting. Talk to your safety leader regarding the use of this medicine in children. Special care may be needed. What side effects may I notice from receiving this medicine? Side effects that you should report to your doctor or health rn home care as soon as p ossible: allergic reactions [...] attention (report to your doctor or health rn home care if they continue or are bothersome): back pain changes in taste decreased appetite dry skin nausea tiredness What may interact with this medicine? Interactions are not expected. What if I miss a dose? It is important not to miss your dose. Call your doctor or health rn home care if you are unable to keep an [...] should talk to your doctor or health rn home care if you are concerned about your fertility. [...] with [facility] LAB DRAW in [facility] INFUSION SUPPORT SERVICES 08/13/2019 0945 - Office Visit Extended with CIERRA Hartley in [facility] HEMATOLOGY AND ONCOLOGY 08/13/2019 1015 - Onc Infusion with [facility] [address] [facility] HEMATOLOGY AND ONCOLOGY INFUSIONS 08/13/2019 1230 - Office Visit Regular appointment starts at 1240 with Scott Boswell MD in [facility] PULMONOLOGY 12:1 3 PM PDTdocumented [...] [place] | | | | | | [address] | | | | | | | | +--------+ + + + + | 12/17/ | Office | Oncology | Yancy Clifford MD | | | 2019 | Visit | | [address] | | | | | | [place] | | | | | | [address] | | | | | | | | +--------+ + + + + | 12/17/ | Appointment | Infusion Therapy | Yancy Clifford MD | | | 2019 | | | [address] | | | | | | [place] | | | | | | [address] | | | | | | | | +--------+ + + + + | 01/07/ | Appointment | Infusion Therapy | Yancy Clifford MD | | | 2019 | | | [address] | | | | | | [place] | | | | | | [address] | | | | | | | | +--------+ + + + + | 01/07/ | Office | Oncology | Yancy Clifford MD | | | 2019 | Visit | | [address] | | | | | | [place] | | | | | | [address] | | | | | | | | +--------+ + + + + | 01/07/ | Appointment | Infusion Therapy | Yancy Clifford MD | | | 2019 | | | [address] | | | | | | [place] | | | | | | [address] | | | | | | | [...] | | | | Care, Starting Teresa 07/23/19 at | | | | | [...] | | | | NS, Starting [facility] 07/23/19 at 1042 | | | | | | + +---------+ +---------+ +---+ +---+---+ | | | +---+---+ documented in this encounter"
--- OUTSIDE RECORDS SUMMARY | ~2019-12-09 | XMS | Encounter Summary ---
Demographics + + + | Address | [address] [address] | | | [place] [address] | + + + | Home Phone [...] | | | | [place] [address] | | + + + + + | Emory Larios | ECON | Unknown | | + + + + + Care Team Providers + +------+ + | Care Feed Mill Supervisor Name | Role | Phone | [...] + + | 07/23/ | Office | [facility] | Yancy Clifford MD | Malignant neoplasm | | 2019 | Visit | HEMATOLOGY AND | [address] | of left ovary (HCC) | | | | ONCOLOGY [address] | [place] | (Primary Dx); | | [address] | [address] | [address] | Chemotherapy | | | | [place] | | management, | | | | [address] | | encounter for | | | | [phone] | | | +--------+---------+ + + + [...] 05/2017 Genetic Testing Negative genetic testing through [facility]. 07/2017 Surgery S/p debulking surgery. Final pathology [...] Estimate 07/23/2019 ADEQUATE Final Testing Performed at [facility], [address], [address], [place] [address] Na 07/23/2019 140 135 - 145 mmol/L [...] MDRD IDMS traceable equation. Testing Performed at [facility], [address], [address], [place] [address] Color, UA 07/23/2019 YELLOW Final Clarity, UA 07/23/2019 CLEAR Final Specific [place], Urine 07/23/2019 1.025 1.002 - 1.030 Final [...] NEGATIVE NEG mg/dL Final Testing Performed at [facility], [address], [address], [place] [address] WBC UA 07/23/2019 0-2 0 - 5 /hpf Final RBC UA 07/23/2019 NONE SEEN 0 - 5 /hpf Final SQUAMOUS EPITHELIAL UA 07/23/2019 6-10 /lpf Final BACTERIA UA 07/23/2019 NONE SEEN NONE Final MUCUS UA 07/23/2019 1+ Final Testing Performed at [facility], [address], [address], [place] [address] PRO/CREA RATIO,URINE 07/23/2019 0.320 Final Testing performed at [facility];[address] [facility];[place] [address] Creatinine, random urine 07/23/2019 172.0 mg/dL Final Comment: NO NORMAL RANGE ESTABLISHED Testing performed at [facility];[address] [facility];[place] [address] Protein, Urine 07/23/2019 55 mg/dL Final Comment: NO NORMAL RANGE ESTABLISHED Testing performed at [facility];[address] [facility];[place] [address] Imaging: Assessment: ECO 59 yo lady with [...] examining the patient, review of medical records, res counselor ing, coordination of care, and CPOE. [...] [place] | | | | | | [address] | | | | | | | | +--------+ + + + + | 12/17/ | Office | Oncology | Yancy Clifford MD | | | 2019 | Visit | | [address] | | | | | | [place] | | | | | | [address] | | | | | | | | +--------+ + + + + | 12/17/ | Appointment | Infusion Therapy | Yancy Clifford MD | | | 2019 | | | [address] | | | | | | [place] | | | | | | [address] | | | | | | | | +--------+ + + + + | 01/07/ | Appointment | Infusion Therapy | Yancy Clifford MD | | | 2019 | | | [address] | | | | | | [place] | | | | | | [address] | | | | | | | | +--------+ + + + + | 01/07/ | Office | Oncology | Yancy Clifford MD | | | 2019 | Visit | | [address] | | | | | | [place] | | | | | | [address] | | | | | | | | +--------+ + + + + | 01/07/ | Appointment | Infusion Therapy | Yancy Clifford MD | | | 2019 | | | [address] | | | | | | [place] | | | | | | [address] | | | | | | | [...] LAB | | | | performed at [facility];[address] | | [facility] | | | | [address] | | LABORATORY | | | | [address];[place] [address] | | | | | | | | | | + + + + + + + + | Specimen | + + | | + + + + + + + | Performing | Address | City/State/Zipcode | Phone Number | | Organization | | | | + + + + + | REFERENCE LAB | [address] | [place] [address] | [phone] | | [facility] | Bl[address] | | | | LABORATORY | | | | + + + + + | REFERENCE LAB | [address] | [place] [address] | | | [facility] | Blvd[address] | [...] | | | urine | performed at [facility];[address] | | [facility] | | | | [address] | | LABORATORY | | | | [address]vd;[place] [address] | | | | | | | | | | + + + + + + + + | Specimen | + + | | + + + + + + + | Performing | Address | City/State/Zipcode | Phone Number | | Organization | | | | + + + + + | REFERENCE LAB | [address] | [place] [address] | [phone] | | [facility] | Blvd[address] | | | | LABORATORY | | | | + + + + + | REFERENCE LAB | [address] | [place] [address] | | | [facility] | Bl[address] | [...] | | | RATIO,URINE | performed at [facility];[address] | | LAB | | | | [facility] | | [facility] | | | | [address];[place] [address] | | LABORATORY | | + + + + + + + + | Specimen | + + | | + + + + + + + | Performing | Address | City/State/Zipcode | Phone Number | | Organization | | | | + + + + + | REFERENCE LAB | [address] [place] [address] | [place] [address] | [phone] | | [facility] | Blvd[address] | | | | LABORATORY | | | | + + + + + | REFERENCE LAB | [address] [place] [address] | [place] [address] | | | [facility] | Blvd[address] | [...] | | LABORATORY | | | | [address] | | | | + + + + + + + + | Specimen | + + | | + + + + + + + | Performing | Address | City/State/Zipcode | Phone Number | | Organization | | | | + + + + + | REFERENCE LAB | [address] | [place] [address] | [phone] | | [facility] | Blvd[address] | | | | LABORATORY | | | | + + + + + | REFERENCE LAB | [address] | [place] [address] | | | [facility] | Blvd. | [...] - 1.030 | REFERENCE | | | [place], | | | LAB | | | [...] | | LABORATORY | | | | [address] | | | | + + + + + + + + | Specimen | + + | | + + + + + + + | Performing | Address | City/State/Zipcode | Phone Number | | Organization | | | | + + + + + | REFERENCE LAB | [address] | [place] [address] | [phone] | | [facility] | Blvd[address] | | | | LABORATORY | | | | + + + + + | REFERENCE LAB | [address] | [place] [address] | | | [facility] | Blvd. | [...] | | | | | Performed at [facility], [address] | | | | | | [address] | | | | | | [address], [place], [place] | | | | | | [address] | | | | + + + + + + + + | Specimen | + + | | + + + + + + + | Performing | Address | City/State/Zipcode | Phone Number | | Organization | | | | + + + + + | REFERENCE LAB | [address] [place] [address] | [place] [address] | [phone] | | [facility] | Blvd[address] | | | | LABORATORY | | | | + + + + + | REFERENCE LAB | [address] [place] [address] | [place] [address] | | | [facility] | Blvd[address] | [...] | | LABORATORY | | | | [address] | | | | + + + + + + + + | Specimen | + + | | + + + + + + + | Performing | Address | City/State/Zipcode | Phone Number | | Organization | | | | + + + + + | REFERENCE LAB | [address] [place] [address] | [place] [address] | [phone] | | [facility] | Blvd[address] | | | | LABORATORY | | | | + + + + + | REFERENCE LAB | [address] [place] [address] | [place] [address] | | | [facility] | Blvd[address] | [...]
--- OUTSIDE RECORDS SUMMARY | ~2019-12-09 | XMS | Encounter Summary ---
Demographics + + + | Address | [address] [address] | | | [place] [address] | + + + | Home Phone | | + + + | Preferred Language | Unknown | + + + | Marital Status | | + + + | Druze Affiliation | Unknown | + + + | Race | Unknown | + + + | Ethnic Group | Unknown | + + + Author + + + | Author | [facility] | | | and [place] | + + + | Organization | [facility] | | | [...] | | | | [place] [address] | | + + + + + | Emory Larios | ECON | Unknown | | + + + + + Care Team Providers + +------+ + | Care Hand Slitter Name | Role | Phone | + [...] + + | 11/05/ | Office | 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 07/2017 Surgery S/p debulking surgery. Final pathology [...] MDRD IDMS traceable equation. Testing performed at [facility];[address] [facility];[place] [address] WBC 11/05/2019 7.80 3.80 - 11.00 K/uL [...] - 0.10 K/uL Final Testing Performed at [facility], [address], [address], [place] [address] PRO/CREA RATIO,URINE 11/05/2019 0.561 Final Testing performed at [facility];[address] [facility];[place] [address] Color, UA 11/05/2019 YELLOW Final Clarity, UA 11/05/2019 CLEAR Final Specific [place], Urine 11/05/2019 1.025 1.002 - 1.030 Final [...] NEGATIVE NEG mg/dL Final Testing Performed at [facility], [address], [address], [place] [address] Creatinine, random urine 11/05/2019 157.0 mg/dL Final Comment: NO NORMAL RANGE ESTABLISHED Testing performed at [facility];[address] [place] [address];[place] [address] Protein, Urine 11/05/2019 88 mg/dL Final Comment: NO NORMAL RANGE ESTABLISHED Testing performed at [facility];[address] [place] [address];[place] [address] WBC UA 11/05/2019 1-5 0 - 5 /hpf Final RBC UA 11/05/2019 0-2 0 - 5 /hpf Final SQUAMOUS EPITHELIAL UA 11/05/2019 50-100 /lpf Final BACTERIA UA 11/05/2019 2+* NONE Final MUCUS UA 11/05/2019 2+ Final CASTS 11/05/2019 1-5 /lpf Final Comment: HYALINE 0-2 FINE GRANULAR Testing Performed at [facility], [address] [facility], [place] [address] Orders Only on 11/05/2019 Component Date Value Ref Range Status CA125 11/05/2019 44.6* 0 - 35 U/mL Final Comment: THE [employer] (FORMERLY [facility]) ADVIA CENTAUR IMMUNOASSAY METHOD IS USED. RESULTS OBTAINED WITH DIFFERENT ASSAY METHODS OR KITS CANNOT BE USED INTERCHANGEABLY. Testing performed at [facility];[address] [place] [address];[place] [address] Results for ELSY BAXTER ( ) as [...] examining the patient, review of medical records, extension course counselor ing, coordination of care, and CPOE. More than 50% of that time was spent in direct contact with the patient. [facility] Plan of Treatment +--------+ + + + + | Date | Type | Specialty | Care Team | Description | +--------+ + + + + | 12/17/ | Appointment | Infusion Therapy | Yancy Clifford MD | | | 2019 | | | [address] | | | | | | [place] | | | | | | [address] | | | | | | | | +--------+ + + + + | 12/17/ | Office | Oncology | Yancy Clifford MD | | | 2019 | Visit | | [address] | | | | | | [place] | | | | | | [address] | | | | | | | | +--------+ + + + + | 12/17/ | Appointment | Infusion Therapy | Yancy Clifford MD | | | 2019 | | | [address] | | | | | | [place] | | | | | | [address] | | | | | | | | +--------+ + + + + | 01/07/ | Appointment | Infusion Therapy | Yancy Clifford MD | | | 2019 | | | [address] | | | | | | [place] | | | | | | [address] | | | | | | | | +--------+ + + + + | 01/07/ | Office | Oncology | Yancy Clifford MD | | | 2019 | Visit | | [address] | | | | | | [place] | | | | | | [address] | | | | | | | | +--------+ + + + + | 01/07/ | Appointment | Infusion Therapy | Yancy Clifford MD | | | 2019 | | | [address] | | | | | | [place] | | | | | | [address] | | | | | | | [...]
--- OUTSIDE RECORDS SUMMARY | ~2019-12-09 | XMS | Encounter Summary ---
Demographics + + + | Address | [address] [address] | | | [place] [address] | + + + | Home Phone | | + + + | Preferred Language | Unknown | + + + | Marital Status | | + + + | Jain Affiliation | Unknown | + + + | Race | Unknown | + + + | Ethnic Group | Unknown | + + + Author + + + | Author | [facility] | | | [...] | | | | [place] [address] | | + + + + + | Emory Larios | EBENEZER | Unknown | | + + + + + Care Team Providers + +------+ + | Care Piano Builder Name | Role | Phone | [...] | | | Ascites, | [place], | [place] [address] | | | | | malignant | [place] [address] | Phone: | | | | | Procedures | Phone: | [phone] | | | | | [place] | [phone] | Fax: | | | | | BEVACIZUMAB | Fax: | [phone] | | | | | INJECTION, | [phone] | | | | | | 10 [...] + | 08/13/ | Hospital | 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 It is given by a health childbirth and infant care teacher in a h ospital or clinic setting. Talk to your abalone diver regarding the use of this medicine in children. Special care may be needed. What side effects may I notice from receiving this medicine? Side effects that you should report to your doctor or health childbirth and infant care teacher as soon as p ossible: allergic [...] attention (report to your doctor or health childbirth and infant care teacher if they continue or are bothersome): back pain changes in taste decreased appetite dry skin nausea tiredness What may interact with this medicine? Interactions are not expected. What if I miss a dose? It is important not to miss your dose. Call your doctor or health childbirth and infant care teacher if you are unable to keep [...] should talk to your doctor or health childbirth and infant care teacher if you are concerned about your [...] hecked and doses verified with second RN Julinaa before releasing to RX. Patient cleared for t reatment of C 4 D 1 of every 21 day Bevacizumab after DOUGH MIXER HELPER visit. Distress screening complet ed today at patients appointment with a 0 score. Copy of labs and calender given with next s cheduled appointment listed below. 09/03/2019 0745 - IVT LAB DRAW with [facility] LAB DRAW in [facility] HO INFUSION SUPPORT SERVICES 09/03/2019 0830 - Office Visit Extended appointment starts at 0845 with CIERRA Hartley in [facility] HEMATOLOGY AND ONCOLOGY 09/03/2019 0915 - Onc Infusion with [facility] CHAIR [address] [facility] HEMATOLOGY AND ONCOLOGY INFUSIONS documented in [...] [place] | | | | | | [address] | | | | | | | | +--------+ + + + + | 12/17/ | Office | Oncology | Yancy Clifford MD | | | 2019 | Visit | | [address] | | | | | | [place] | | | | | | [address] | | | | | | | | +--------+ + + + + | 12/17/ | Appointment | Infusion Therapy | Yancy Clifford MD | | | 2019 | | | [address] | | | | | | [place] | | | | | | [address] | | | | | | | | +--------+ + + + + | 01/07/ | Appointment | Infusion Therapy | Yancy Clifford MD | | | 2019 | | | [address] | | | | | | [place] | | | | | | [address] | | | | | | | | +--------+ + + + + | 01/07/ | Office | Oncology | Yancy Clifford MD | | | 2020 | Visit | | [address] | | | | | | [place] | | | | | | [address] | | | | | | | | +--------+ + + + + | 01/07/ | Appointment | Infusion Therapy | Yancy Clifford MD | | | 2020 | | | [address] | | | | | | [place] | | | | | | [address] | | | | | | | [...]
--- OUTSIDE RECORDS SUMMARY | ~2019-12-09 | XMS | Encounter Summary ---
Demographics + + + | Address | [address] | | | [place] [address] | + + + | Home Phone [...] | | | | [place] [address] | | + + + + + | Emory Larios | ECON | Unknown | | + + + + + Care Team Providers + +------+ + | Care Wing Scorer Name | Role | Phone | + +------+ + | Shannan Deng | PCP | | + +------+ + Reason for Visit +--------+ + | Reason | Comments | +--------+ + | Triage | | +--------+ + Encounter Details +--------+ + + + + | Date | Type | Department | Care Team | Description | +--------+ + + + + | 11/23/ | Telephone | [facility] | Zonia Rivas RN | Triage | | 2019 | | HEMATOLOGY AND | | | | | | ONCOLOGY INFUSIONS | | | | | | [address] | | | | | | [place] | | | | | | [address] | | | | | | [phone] | | | +--------+ + + + [...] | | 2019 | | | [address] | | | | | | [place] | | | | | | [address] | | | | | | | | +--------+ + + + + | 12/17/ | Office | Oncology | Yancy Clifford MD | | | 2019 | Visit | | [address] | | | | | | [place] | | | | | | [address] | | | | | | | | +--------+ + + + + | 12/17/ | Appointment | Infusion Therapy | Yancy Clifford MD | | | 2019 | | | [address] | | | | | | [place] | | | | | | [address] | | | | | | | | +--------+ + + + + | 01/07/ | Appointment | Infusion Therapy | Yancy Clifford MD | | | 2019 | | | [address] | | | | | | [place] | | | | | | [address] | | | | | | | | +--------+ + + + + | 01/07/ | Office | Oncology | Yancy Clifford MD | | | 2019 | Visit | | [address] | | | | | | [place] | | | | | | [address] | | | | | | | | +--------+ + + + + | 01/07/ | Appointment | Infusion Therapy | Yancy Clifford MD | | | 2019 | | | [address] | | | | | | [place] | | | | | | [address] | | | | | | | | +--------+ + + + + documented as of this encounter Visit Diagnoses Not on filedocumented in this encounter"
--- OUTSIDE RECORDS SUMMARY | ~2019-12-09 | XMS | Encounter Summary ---
Demographics + + + | Address | [address] | | | [place] [address] | + + + | Home Phone [...] | | | | [place] [address] | | + + + + + | Emory Larios | ECON | Unknown | | + + + + + Care Team Providers + +------+ + | Care Technical Expert Name | Role | Phone | [...] Provider Unknown | | | | | [place], [place] | [phone] | | | | | [address] | | | | | | [phone] | | | +--------+ + + + [...] [place] | | | | | | [address] | | | | | | | | +--------+ + + + + | 12/17/ | Office | Oncology | Yancy Clifford MD | | | 2019 | Visit | | [address] | | | | | | [place] | | | | | | [address] | | | | | | | | +--------+ + + + + | 12/17/ | Appointment | Infusion Therapy | Yancy Clifford MD | | | 2019 | | | [address] | | | | | | [place] | | | | | | [address] | | | | | | | | +--------+ + + + + | 01/07/ | Appointment | Infusion Therapy | Yancy Clifford MD | | | 2019 | | | [address] | | | | | | [place] | | | | | | [address] | | | | | | | | +--------+ + + + + | 01/07/ | Office | Oncology | Yancy Clifford MD | | | 2019 | Visit | | [address] | | | | | | [place] | | | | | | [address] | | | | | | | | +--------+ + + + + | 01/07/ | Appointment | Infusion Therapy | Yancy Clifford MD | | | 2019 | | | [address] | | | | | | [place] | | | | | | [address] | | | | | | | | +--------+ + + + + documented as of this encounter Visit Diagnoses Not on filedocumented in this encounter"
--- OUTSIDE RECORDS SUMMARY | ~2019-12-09 | XMS | Encounter Summary ---
Demographics + + + | Address | [address] | | | [place] [address] | + + + | Home Phone | | + + + | Preferred Language | Unknown | + + + | Marital Status | | + + + | Baptism Affiliation | Unknown | + + + [...] | | | | | [place] [address] | | + + + + + | Emory Larios | ECON | Unknown | | + + + + + Care Team Providers + +------+ + | Care Parts Runner Name | Role | Phone | + +------+ + PCP | Unavailable | + +------+ + Encounter Details +--------+ + + + + | Date | Type | Department | Care Team | Description | +--------+ + + + + | 07/02/ | Orders Only | [facility] | Yancy Clifford MD | | | 2018 | | INFUSION SUPPORT | [address] | | | | | SERVICES [address] [place] | | | | | [address] [place] | [address] | | | | | [address] [place] | | | | | | [address] | | | | | | [phone] | | | +--------+ + + + [...] 07/02/19 [id number] Encounter Date: 07/02/2019 Status: Signed [employer]: Laila Jones RN (Registered Nurse) Port accessed. [...] [place] | | | | | | [address] | | | | | | | | +--------+ + + + + | 12/17/ | Appointment | Infusion Therapy | Yancy Clifford MD | | | 2019 | | | [address] | | | | | | [place] | | | | | | [address] | | | | | | | | +--------+ + + + + | 01/07/ | Appointment | Infusion Therapy | Yancy Clifford MD | | | 2019 | | | [address] | | | | | | [place] | | | | | | [address] | | | | | | | | +--------+ + + + + | 01/07/ | Office | Oncology | Yancy Clifford MD | | | 2019 | Visit | | [address] | | | | | | [place] | | | | | | [address] | | | | | | | | +--------+ + + + + | 01/07/ | Appointment | Infusion Therapy | Yancy Clifford MD | | | 2019 | | | [address] | | | | | | [place] | | | | | | [address] | | | | | | | [...] - 1.030 | EXTERNAL | | | [place] | | | LAB | | + [...]
--- OUTSIDE RECORDS SUMMARY | ~2019-12-09 | XMS | Encounter Summary ---
Demographics + + + | Address | [address] | | | [place] [address] | + + + | Home Phone | | + + + | Preferred Language | Unknown | + + + | Marital Status | | + + + | Muslim Affiliation | Unknown | + + + [...] | | | | [place] [address] | | + + + + + | Emory Larios | ECON | Unknown | | + + + + + Care Team Providers + +------+ + | Care Assembler Bonding Name | Role | Phone | + [...] + + | 08/13/ | Office | [facility] | Yancy Clifford MD | Malignant neoplasm | | 2019 | Visit | HEMATOLOGY AND | [address] | of left ovary (HCC) | | | | ONCOLOGY [address] | [place] | (Primary Dx) | | | | [address] | [address] | | | | | [place] | | | | | | [address] | Jennyfer Calvert | | | | | [phone] | CIERRA Lou [address] | | | | [address] | | | | | | [place] [address] | | | | | | [phone] | | | | | | | [...] in this encounter Progress Notes Jennyfer Calvert, MAMMAL CONTROL AGENT - 08/13/2019 9:45 AM PDTFormatting of this note might be differ ent from the original. [facility] Hematology & Oncology Oncology Progress Note [...] 05/2017 Genetic Testing Negative genetic testing through [facility]. 07/2017 Surgery S/p debulking surgery. Final pathology [...] ANISO NORMAL PLT MORPH Testing Performed at [facility], [address] [facility], [address], [place] [address] Na 08/13/2019 139 135 - 145 mmol/L [...] MDRD IDMS traceable equation. Testing Performed at [facility], [address], [address], [place] [address] PRO/CREA RATIO,URINE 08/13/2019 0.293 Final Testing performed at [facility];[address] [facility];[place] [address] Color, UA 08/13/2019 YELLOW Final Clarity, UA 08/13/2019 CLEAR Final Specific Clarinda, Urine 08/13/2019 1.025 1.002 - 1.030 Final [...] NEGATIVE NEG mg/dL Final Testing Performed at [facility], [address], [address], [place] [address] Creatinine, random urine 08/13/2019 167.0 mg/dL Final Comment: NO NORMAL RANGE ESTABLISHED Testing performed at [facility];[address] [facility];[place] [address] Protein, Urine 08/13/2019 49 mg/dL Final Comment: NO NORMAL RANGE ESTABLISHED Testing performed at [facility];[address] [facility];[place] [address] WBC UA 08/13/2019 0-2 0 - 5 /hpf Final RBC UA 08/13/2019 0-2 0 - 5 /hpf Final SQUAMOUS EPITHELIAL UA 08/13/2019 16-25 /lpf Final BACTERIA UA 08/13/2019 TRACE* NONE Final MUCUS UA 08/13/2019 4+ Final CASTS 08/13/2019 1-5 /lpf Final Comment: HYALINE Testing Performed at [facility], [address], [address], [place] [address] Ct Chest Abdomen Pelvis W Contrast Result [...] and coordination of care. CIERRA Hartley, MIKE [facility] Hematology Oncology 08/13/2019 Portions of this [...] [place] | | | | | | [address] | | | | | | | | +--------+ + + + + | 12/17/ | Office | Oncology | Yancy Clifford MD | | | 2019 | Visit | | [address] | | | | | | [place] | | | | | | [address] | | | | | | | | +--------+ + + + + | 12/17/ | Appointment | Infusion Therapy | Yancy Clifford MD | | | 2019 | | | [address] | | | | | | [place] | | | | | | [address] | | | | | | | | +--------+ + + + + | 01/07/ | Appointment | Infusion Therapy | Yancy Clifford MD | | | 2019 | | | [address] | | | | | | [place] | | | | | | [address] | | | | | | | | +--------+ + + + + | 01/07/ | Office | Oncology | Yancy Clifford MD | | | 2019 | Visit | | [address] | | | | | | [place] | | | | | | [address] | | | | | | | | +--------+ + + + + | 01/07/ | Appointment | Infusion Therapy | Yancy Clifford MD | | | 2019 | | | [address] | | | | | | [place] | | | | | | [address] | | | | | | | [...] | | | | | TCL;[address] [facility] | | | | | | [facility];[place] [address] | | | | | | | | | | + + + + + + + + | Specimen | + + | Blood | + + + + + + + | Performing | Address | City/State/Zipcode | Phone Number | | Organization | | | | + + + + + | REFERENCE LAB | [address] [place] [address] | [place] [address] | [phone] | | [facility] | Blvd[address] | | | | LABORATORY | | | | + + + + + | REFERENCE LAB | [address] [place] [address] | [place] [address] | | | [facility] | Blvd. 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
--- OUTSIDE RECORDS SUMMARY | ~2019-12-09 | XMS | Encounter Summary ---
Demographics + + + | Address | [address] | | | [place] [address] | + + + | Home Phone [...] | | | | | [place] [address] | | + + + + + | Emory Larios | ECON | Unknown | | + + + + + Care Team Providers + +------+ + | Care Ferryboat Operator Cable Name | Role | Phone | + +------+ + PCP | Unavailable | + +------+ + Encounter Details +--------+ + + + + | Date | Type | Department | Care Team | Description | +--------+ + + + + | 05/13/ | Hospital | [facility] | Jared Piña, | | | 2019 - | Encounter | [facility] | MD [address] | | | | | C[address]LO[address] | [place] [address] | | | 05/16/ | | [address] | [phone] | | | 2018 | | [place], [place] | | | | | | [address] | | | | | | [phone] | | | +--------+ + + + [...] + + + | Blood Pressure | 164/74 | 05/16/2019 12:13 PM | | | | | PDT | | + + + + + | Pulse | 75 | 05/16/2019 12:13 PM | | | | | PDT | | + + + + + | Temperature | 37.2 C (98.9 F) | 05/16/2019 12:13 PM | | | | | PDT | | + + + + + | Respiratory Rate | 18 | 05/16/2019 12:13 PM | | | | | PDT | | + + + + + | Oxygen Saturation | - | - | | + + + + + | Inhaled Oxygen | - | - | | | Concentration | | | | + + + + + | Weight | 90.8 kg (200 lb 2.9 | 05/16/2019 12:13 PM | | | | oz) | PDT | | + + + + + | Height | 162.6 cm (5' 4") | 05/16/2019 12:13 PM | | | | | PDT | | + + + + + | Body Mass Index | 34.36 | 05/16/2019 12:13 PM | | | | | PDT | | + + + + + documented in this encounter Discharge Summaries Kristine Toussaint DO - 05/16/2019 8:23 AM PDTFormatting of this note might be different fr om the original. Discharge Summaries by Kristine Toussaint DO at 05/16/19822 Author: Kristine Toussaint DO Service: Hospitalist Author Type: Physician Filed: 05/16/19 1511 Date of Service: 05/16/19822 Status: Signed Banquet Supervisor: Kristine Toussaint DO (Physician) Patient: Ramila Lopez : 1960 Date of Admission: 05/13/2019 Date of Discharge: 05/16/2019 Treatment Team: Consulting Physician: Yancy Clifford MD Consulting Physician: Jonnathan Hinds MD Admitting Provider: Jared Piña MD Discharging Provider: Kristine Toussaint DO Discharge Diagnoses: Principal Problem: Pancytopenia (HCC) Active Problems: Chronic deep vein thrombosis (DVT) of right upper extremity (HCC) Malignant neoplasm of left ovary (HCC) Epistaxis Coagulopathy (HCC) Tobacco use disorder Acute cystitis without hematuria Resolved Problems: * No resolved hospital problems. * Procedures Performed: Chief Complaint: No chief complaint on file. Hospital Course: Ramila Lopez is a 58 y.o. female who was admitted on 05/13/2019 with thrombocytopenia related epistaxis. Patient is a 58 yo F with PMHx of metastatic ovarian CA (last chemotherapy treatment last ; under treatment by Dr. Venessa Correa), arthritis, asthma, DVT, dyslipidemia. She presented t [facility]'s ED on 05/13/19 with complaints of epistaxis. At that time her labs were nota ble for platelets 13, Hb 7.6, Hct 22.3. She was transferred to [facility] as there was no transfus ion services available at that time. Upon arrival to [facility] Oncology and ENT Dr. Hinds was consulted. A rhino rocket was placed and she was started on antibiotics for prophylaxis. She was transfused platelets. Patient stabi lized. She was discharged home on antibiotic prophylaxis and plan to follow up with Dr. Hinds on Saturday for removal of packing. Discharge Exam and Data: Vital Signs: BP 164/74 (BP Location: Left upper arm) | Pulse 75 | Temp 98.9 F (37.2 C) (Oral) | R chasity 18 | Ht 1.626 m (5' 4") | Wt 90.8 kg (200 lb 2.8 oz) | SpO2 97% | ? No | BMI 34.36 kg/m General: Alert, no distress, lying in bed Eyes: PERRL, no scleral icterus, no dischage ENT: External ears normal, Nasal packing in place. No blood in oropharynx Neck: Supple, no thyromegaly Cardiovascular: Regular rate and rhythm, no murmurs, no rub Respiratory: No respiratory distress, clear bilaterally, no wheezing Abdomen: Soft, non-tender, non-distended, active bowel sounds Back: No tenderness or deformity Skin: Warm and dry, no rashes Extremities: No edema, no joint deformities Neuro: No gross motor/sensory deficit. CN grossly intact. Alert and oriented to person, pl reina, time. Recent Labs Recent Labs Lab 05/16/19 0458 WBC 4.08 HGB 8.9* HCT 25.9* PLT 39* Recent Labs Lab 05/16/19 0458 NA 142 K 4.1 CL 110* CO2 23 BUN 11 CREATININE 0.6 Recent Labs Lab 05/14/19 0500 INR 1.0 Recent Radiology Results No results found. No discharge procedures on file. Outstanding Issues: None Discharge Information: Follow up: Jonnathan Hinds MD [address] [id number] [facility] [phone] On 05/18/2019 For nasal packing removal Per Pt None Yancy Clifford MD [address] [facility] [address] Medication List START taking these medications amoxicillin-clavulanate 875-125 MG per tablet QTY: 6 tablet Refills: 0 Commonly known as: AUGMENTIN Take 1 tablet by mouth every 12 (twelve) hours. CONTINUE taking these medications albuterol 108 (90 BASE) MCG/ACT inhaler Refills: 0 Commonly known as: PROAIR HFA aspirin 81 MG tablet Refills: 0 EQUATE PO Refills: 0 fluticasone 220 MCG/ACT inhaler Refills: 0 Commonly known as: FLOVENT HFA fluticasone 50 MCG/ACT nasal Refills: 0 Commonly known as: FLONASE lactulose 10 GM/15ML solution QTY: 240 mL Refills: 3 For diagnoses: Constipation, unspecified constipation type Commonly known as: CHRONULAC Take 15 mLs by mouth every 2 (two) hours as needed (constipation). Until a good bowel movem ent. lidocaine-prilocaine cream QTY: 30 g Refills: 2 For diagnoses: Pleural effusion, malignant, Malignant neoplasm of both ovaries Commonly known as: EMLA Apply to the port prior to chemo loratadine 10 MG tablet Refills: 0 Commonly known as: CLARITIN * LOVASTATIN PO Refills: 0 * lovastatin 20 MG tablet Refills: 0 Commonly known as: MEVACOR ondansetron 8 MG tablet Refills: 0 Commonly known as: ZOFRAN polyethylene glycol packet Refills: 0 Commonly known as: GLYCOLAX prochlorperazine 10 MG tablet QTY: 30 tablet Refills: 3 For diagnoses: Pleural effusion, malignant, Malignant neoplasm of both ovaries Take 1 tablet by mouth every 6 (six) hours as needed. * This list has 2 medication(s) that are the same as other medications prescribed for you. Read the directions carefully, and ask your doctor or other care provider to review them wit h you. You might also be taking other medications not listed above. If you have questions about an y of your other medications, talk to the person who prescribed them or your Primary Care Pro vider. Where to Get Your Medications You can get these medications from any pharmacy Bring a paper prescription for each of these medications amoxicillin-clavulanate 875-125 MG per tablet Disposition: Home Condition: Stable Code Status: Full Code Discharge took 35 minutes, to include final examination, discussion of admission, and prepa ration of prescriptions, instructions for on-going care, follow-up and documentation of disc harge summary. Kristine Toussaint 3:19 PM documented in this encounter Medications at Time [...] Progress Notes Conversion Transaction, Provider Unknown - 05/16/2019 2:15 PM PDTFormatting of this note m ight be different from the original. Nurse Progress Note by Burak Brooks RN at 05/16/19 1415 Author: Burak Brooks RN Service: (none) Author Type: Registered Nurse Filed: 05/16/19 1416 Date of Service: 05/16/19 141 Status: Signed Banquet Supervisor: Burak Brooks RN (Registered Nurse) Education provided at time of discharge. No questions at this time. Patient escorted out with her at her side. Yancy Platt MD - 05/16/2019 11:01 AM PDTFormatting of this note might be different from the origin al. Progress Notes by Yancy Clifford MD at 05/16/19 1101 Author: Yancy Clifford MD Service: Hematology/Oncology Author Type: Physician Filed: 05/16/19 1158 Date of Service: 05/16/19 110 Status: Signed Banquet Supervisor: Yancy Clifford MD (Physician) [facility] Service: Hematology and Oncology Progress Note Hospital Day: LOS: 3 days Treatment Team: Consulting Physician: Yancy Clifford MD Consulting Physician: Jonnathan Hinds MD Admitting Provider: Jared Piña MD SUBJECTIVE: No acute issue overnight. No more nose bleeding, but some oozing. No other new complains. A febrile. OBJECTIVE: Scheduled Medications amoxicillin-clavulanate 1 tablet Oral 2 times per day mometasone 220 mcg Inhalation Daily nicotine 1 patch Transdermal Daily Continuous Infusions sodium chloride (IV) 75 mL/hr at 05/16/19 0436 PRN Medications acetaminophen 650 mg Q6H PRN Or acetaminophen 650 mg Q6H PRN albuterol 2 puff Q4H PRN aluminum-magnesium hydroxide-simethicone 30 mL Q6H PRN calcium carbonate 1,000 mg Q6H PRN HYDROcodone-acetaminophen 1 tablet Q4H PRN Or HYDROcodone-acetaminophen 1 tablet Q4H PRN lactulose 10 g Q2H PRN lidocaine PRN melatonin 3 mg Nightly PRN ondansetron 4 mg Q8H PRN Or ondansetron 4 mg Q8H PRN oxymetazoline 2 spray BID PRN polyethylene glycol 17 g Daily PRN DATA Recent Labs Lab 05/16/19 0458 05/15/19 0536 05/14/19 0500 05/13/19 1704 WBC 4.08 3.97 3.44* 2.46* RBC 2.64* 2.67* 2.73* 2.14* HGB 8.9* 8.9* 9.2* 7.3* HCT 25.9* 25.9* 26.3* 21.9* MCV 98.3 97.1 96.4 102.3* MCH 33.8 33.2 33.6 34.2* MCHC 34.4 34.2 34.8 33.4 RDW 78.3* 76.6* 70.4* 92.3* PLT 39* 52* 18* 11* MPV 6.9 7.3 8.1 8.3 BANDSABS -- -- -- 0.05 NEUTROABS 1.94 1.99 1.72* -- LYMPHSABS 1.43 1.41 1.30 -- MONOSABS 0.68 0.55 0.41 -- BASOSABS 0.02 0.01 0.01 -- EOSABS 0.01 0.01 0.00 -- MORPH 4+ 4+ 4+ 4+ Recent Labs Lab 05/16/19 0458 05/14/19 0500 05/13/19 1704 NA 142 140 143 K 4.1 4.1 3.9 CL 110* 109 109 CO2 23 24 26 ANIONGAP 13 11 12 GLUF 102* 103* 103* BUN 11 12 13 CREATININE 0.6 0.7 0.71 BCR 18 17 18 CA 9.0 8.9 9.0 ALB -- 3.2* 4.2 GLOB -- 3.4 2.5 AG -- 0.9* 1.7 PROT -- 6.6 6.7 BILITOT -- 1.2 0.7 ALT -- 24 20 AST -- 17 17 EGFR >60 >60 >60 PHOS -- 3.2 3.8 MG -- 2.4 2.2 IMAGING No results found. EXAM: Patient Vitals for the past 24 hrs: BP Temp Temp src Pulse Resp SpO2 Weight 05/16/19 0855 148/67 97.8 F (36.6 C) Oral 68 18 97 % 90.8 kg (200 lb 2.8 oz) 05/16/19 0419 147/67 98.2 F (36.8 C) Oral 76 17 95 % - 05/16/19 0006 151/68 97.8 F (36.6 C) Oral 77 18 97 % - 05/15/19 1953 148/65 97.7 F (36.5 C) Oral 81 17 98 % - 05/15/19 1625 152/70 98.2 F (36.8 C) Oral 66 18 98 % - 05/15/19 1207 137/62 98 F (36.7 C) Oral 62 20 96 % - Intake/Output Summary (Last 24 hours) at 05/16/19 1102 Last data filed at 05/16/19 0446 Gross per 24 hour Intake 1651 ml Output 1100 ml Net 551 ml General: Alert and oriented. No acute distress. HEENT: PERRLA.Sclera anicteric. Right nasal racket insertion. Some facial swelling Neck: Supple. Lungs: Clear to auscultation B. Heart: Regular rate and rhythm. S1/S2. Abdomen: Soft, nondistended, nontender. No masses are appreciated. No hepatosplenomegaly.+B S. Lymphatics: There is no cervical, supraclavicular, axillary, or inguinal adenopathy. Neuro: Grossly intact. Extremities: No edema. PROBLEM LIST Principal Problem: Pancytopenia (HCC) Active Problems: Chronic deep vein thrombosis (DVT) of right upper extremity (HCC) Malignant neoplasm of left ovary (HCC) Epistaxis Coagulopathy (HCC) Tobacco use disorder Acute cystitis without hematuria ASSESSMENT & PLAN 58 yo lady with 1. Severe epistaxis. This is likely exacerbated by the Avastin use and thrombocythemia anisha david by recent chemo. This has been under control and will be followed by ENT. Continue the o ral antibiotic to complete the course. 2. Pancytopenia. Due to recent chemo. Counts is recovering. 3. Recurrent ovarian cancer on chemo. She has had good response to the treatment. Plan to j ust maintain her on Avastin in the following treatment. Will have more detailed discussion i n the following visit in my clinic. She has a scheduled appointment with me on 05/21. 4. It is ok for her to be discharged from oncology standpoint. Code Status: Full Code Yancy Clifford MD 05/16/201911:02 AM onErwin Palumbo Unknown - 05/15/2019 3:38 PM PDT Case Management by Jaida Shen RN at 05/15/19 1538 Author: Jaida Shen RN Service: (none) Author Type: Top Coater Filed: 05/15/19 1539 Date of Service: 05/15/19 153 Status: Signed Banquet Supervisor: Jaida Shen RN (Top Coater) CM attended daily medical team rounding. Pt is from home with spouse and will return home w hen medically stable. Kristine Burns DO - 05/15/2019 11:26 AM PDT Progress Notes by Kristine Toussaint DO at 05/15/19 1126 Author: Kristine Toussaint DO Service: Hospitalist Author Type: Physician Filed: 05/15/19 1134 Date of Service: 05/15/19 1126 Status: Signed Banquet Supervisor: Kristine Toussaint DO (Physician) [facility] Service: Hospitalist Progress Note Hospital Day: LOS: 2 days Post-Op Day: * No surgery found * SUBJECTIVE Patient Summary: Patient is a 58 yo F with PMHx of metastatic ovarian CA (last chemotherap y treatment last week; under treatment by Dr. Venessa Correa), arthritis, asthma, DVT, dyslipidemi a. She presented to [facility]'s ED on 05/13/19 with complaints of epistaxis. At that time her labs were notable for platelets 13, Hb 7.6, Hct 22.3. She was transferred to [facility] as the re was no transfusion services available at that time. Upon arrival to [facility] Oncology and ENT Dr. Hinds were consulted. A rhino rocket was placed an d she was started on antibiotics for prophylaxis. Events Overnight: Patient feels better and Rhino Rocket is in place in the right nostril. Packing is covered with dry blood but no active bleeding is seen. Patient denies any sore t hroat, chest pain, shortness of breath, nausea or vomiting. No fever or chills. She is requ esting regular diet. Platelets are 52, labs reviewed with patient. Scheduled Medications mometasone 220 mcg Inhalation Daily nicotine 1 patch Transdermal Daily piperacillin-tazobactam 3.375 g 3.375 g Intravenous Q8H Continuous Infusions sodium chloride (IV) 75 mL/hr at 05/15/19 0057 PRN Medications acetaminophen OR acetaminophen, albuterol, aluminum-magnesium hydroxide-simethicone, ca lcium carbonate, HYDROcodone-acetaminophen OR HYDROcodone-acetaminophen, lactulose, lido janak, melatonin, ondansetron OR ondansetron, oxymetazoline, polyethylene glycol OBJECTIVE Vital Signs: BP 139/85 (BP Location: Left upper arm) | Pulse 70 | Temp 97.9 F (36.6 C) (Oral) | R chasity 20 | Ht 1.626 m (5' 4") | Wt 87.5 kg (192 lb 14.4 oz) | SpO2 97% | ? No | BMI 33.11 kg/m Temp: [97.5 F (36.4 C)-98.5 F (36.9 C)] 97.9 F (36.6 C) (05/15 0800) BP: (139-148)/(63-85) 139/85 (06/14 0800) Heart Rate: [62-80] 70 (05/15 800) Resp: [16-20] 20 (05/15 800) SpO2: [96 %-99 %] 97 % (05/15 800) Intake/Output Summary (Last 24 hours) at 05/15/19 1126 Last data filed at 05/15/19 1005 Gross per 24 hour Intake 2256 ml Output 1800 ml Net 456 ml Physical Exam Constitutional: She is oriented to person, place, and time. She appears well-developed and well-nourished. No distress. HENT: Mouth/Throat: Oropharynx is clear and moist. No oropharyngeal exudate. Right nostril packing in place. Packing soaked with dry blood but no active bleeding. Eyes: Pupils are equal, round, and reactive to light. No scleral icterus. Neck: Neck supple. No JVD present. Cardiovascular: Normal rate, regular rhythm, normal heart sounds and intact distal pulses. Exam reveals no gallop and no friction rub. No murmur heard. Pulmonary/Chest: Effort normal and breath sounds normal. No respiratory distress. She has n o wheezes. She has no rales. She exhibits no tenderness. Abdomina/Gl: Soft. Bowel sounds are normal. She exhibits no distension and no mass. There i s no tenderness. There is no rebound and no guarding. No hernia. Musculoskeletal: She exhibits no edema, tenderness or deformity. Neurological: She is alert and oriented to person, place, and time. No cranial nerve defici t. Skin: Skin is warm and dry. No rash noted. No erythema. There is pallor. Psychiatric: She has a normal mood and affect. Her behavior is normal. Thought content norm al. Nursing note and vitals reviewed. DATA CBC: Lab Results Component Value Date WBC 3.97 05/15/2019 RBC 2.67 (L) 05/15/2019 HGB 8.9 (L) 05/15/2019 HCT 25.9 (L) 05/15/2019 MCV 97.1 05/15/2019 MCH 33.2 05/15/2019 MCHC 34.2 05/15/2019 RDW 76.6 (H) 05/15/2019 PLT 52 (L) 05/15/2019 MPV 7.3 05/15/2019 DIFFTYPE AUTOMATED 05/15/2019 CMP: Lab Results Component Value Date NA 140 05/14/2019 K 4.1 05/14/2019 CL 109 05/14/2019 CO2 24 05/14/2019 ANIONGAP 11 05/14/2019 GLUF 103 (H) 05/14/2019 BUN 12 05/14/2019 CREATININE 0.7 05/14/2019 BCR 17 05/14/2019 CA 8.9 05/14/2019 PROT 6.6 05/14/2019 ALB 3.2 (L) 05/14/2019 GLOB 3.4 05/14/2019 BILITOT 1.2 05/14/2019 ALP 65 05/14/2019 AST 17 05/14/2019 ALT 24 05/14/2019 EGFR >60 05/14/2019 No results found. PROBLEM LIST Principal Problem: Pancytopenia (HCC) Active Problems: Chronic deep vein thrombosis (DVT) of right upper extremity (HCC) Malignant neoplasm of left ovary (HCC) Epistaxis Coagulopathy (HCC) Tobacco use disorder Acute cystitis without hematuria ASSESSMENT & PLAN Epistaxis due to severe thrombocytopenia. Patient required anterior nasal packing consiste nt bleeding is stopped. She also received platelet transfusions yesterday. ENT Dr. Hinds co nsulted. Patient can follow up with Dr. Hinds on Saturday if no ENT available in [place]. Juliano l transition to Augmentin for prophylaxis. Severe thrombocytopenia due to recent chemotherapy 2 weeks ago for ovarian cancer. Patient received platelet transfusions x2, Repeat level 52. Severe anemia. Due to recent chemotherapy. Patient received 2 units of blood without any immediate complications. H and H is stable at 9.2 and 26.3 respectively today. Platelets i mproved to 52 post transfusion, will monitor for stability. Pancytopenia. Related to chemotherapy. Plan as above. History of ovarian cancer. Status post debulking surgery followed by chemotherapy. Her la st chemotherapy cycle was 2 weeks ago. Patient follows Dr. Clifford. UTI? Per UA. However patient denies any symptoms of UTI. Urine culture shows coulter sensitiv e E. Coli. Suspect contaminant. Tobacco abuse. On nicotine patches. DVT prophylaxis. Will avoid chemical prophylaxis due to severe thrombus cytopenia, anemia and recurrent epistaxis. Disposition: Likely discharge home tomorrow if platelets are stable. Code Status: Full Code Kristine Toussaint DO 05/15/2019 aylee Arriaga ARNP - 05/15/2019 9:31 AM PDTFormatting of this note might be different from the origin al. Progress Notes by CIERRA Joshi at 05/15/19930 Author: CIERRA Joshi Service: Hematology/Oncology Author Type: Advanced R egistered Nurse Practitioner Filed: 05/15/19 9229 Date of Service: 05/15/19930 Status: Signed Banquet Supervisor: CIERRA Joshi (Advanced Registered Nurse Practitioner) [facility] Service: Hematology and Oncology Progress Note Hospital Day: LOS: 2 days Patient Summary: Ms. Ramila Lopez is a 58 year old woman who presented to ER in [place] in April 2017 second yunior to dyspnea and abdominal distention. CT of the chest, abdomen and pelvis April 04, 2017 at [facility] revealed left pleural effusion with a left ovarian mass measuring 7. 6 X 5 X 5.8 cm with omental caking and ascites. CA 125 was nearly 2000. She underwent parac entesis with removal of 3600 cc fluid and thoracentesis with removal of 700cc, with patholog y from both consistent with malignancy of ovarian primary. She was referred to [facility] and established with Dr. Nolasco. Given her Stage IV disease, she was recommended neoadjuvant chemotherapy and completed 3 cycles of dose den se carboplatin/paclitaxel with excellent response. On July 10, 2017, she underwent oratory laparotomy, bilateral salpingo-oophorectomy and ap pendectomy with omentectomy and optimal tumor debulking. Findings at the time of surgery re vealed no evidence of ascites. There was a cystic left ovarian mass adherent to the sigmoid mesentery and to the vaginal cuff. There was tumor mass within the omentum, scarred to the left upper quadrant. Dr. Nolasco performed optimal debulking with no gross residual disease left behind. Pathology revealed high grade serous carcinoma. Following recovery of surgery, the patient received 3 adjuvant doses of dose dense carbopla tin/paclitaxel between July and September 2017. She achieved remission with normalization of Ca1 25 and was recommended close surveillance. In May 2018, she established with Dr. Clifford after moving to [place]. In December 2018, the patient experienced rising CA125. CT of the chest abdomen and pelvis December 25, 2018 revealed abdominal and pelvic lymphadenopathy likely representing metastati c disease. There was a nodular density just superior to the anterior pelvic wall measuring 1.3 x 1.2 cm thought to represent a metastatic deposit. There was also note of a right adre nal gland nodule measuring 1.9 x 1.5 cm. On February 05, 2019, the patient initiated treatment with carboplatin AUC for IV day 1, gemcit abine 1000 mg/m IV day 1, 8, and bevacizumab 15 mg/kg IV day 1 on a 21-day cycle. She has continued to receive treatment completing cycle 5-day 8 May 07, 2019 with dose reduction in gemcitabine to 800 mg/m2. She has tolerated treatment well with reduction in CA 125. She did experience a nose bleed in mid-April occurring at a time when she was thrombocytopeni c. Bleeding was controlled with nasal packing. On May 13, 2019, the patient presented to [facility] ER secondary to epistaxis. The gaetano ent was seen in the ER by Dr. Diop. The patient was noted to be pancytopenic with platelet s 13,000, hemoglobin 7.6, and total white cell count 25,000. ER provider requested transfer to [facility] given the lack of platelets available in their facility. The patient received 2 un its of fresh frozen plasma prior to transfer and was admitted to [facility] for further manageme nt. SUBJECTIVE: Events Overnight: The patient is doing well. Minimal oozing from her right epistatic. No sore throat. Eating well. OBJECTIVE: Scheduled Medications mometasone 220 mcg Inhalation Daily nicotine 1 patch Transdermal Daily piperacillin-tazobactam 3.375 g 3.375 g Intravenous Q8H Continuous Infusions sodium chloride (IV) 75 mL/hr at 05/15/19 0057 PRN Medications acetaminophen 650 mg Q6H PRN Or acetaminophen 650 mg Q6H PRN albuterol 2 puff Q4H PRN aluminum-magnesium hydroxide-simethicone 30 mL Q6H PRN calcium carbonate 1,000 mg Q6H PRN HYDROcodone-acetaminophen 1 tablet Q4H PRN Or HYDROcodone-acetaminophen 1 tablet Q4H PRN lactulose 10 g Q2H PRN lidocaine PRN melatonin 3 mg Nightly PRN ondansetron 4 mg Q8H PRN Or ondansetron 4 mg Q8H PRN oxymetazoline 2 spray BID PRN polyethylene glycol 17 g Daily PRN Patient Vitals for the past 24 hrs: BP Temp Temp src Pulse Resp SpO2 05/15/19 0800 139/85 97.9 F (36.6 C) Oral 70 20 97 % 05/15/19 0405 148/68 98.1 F (36.7 C) Oral 71 16 96 % 05/14/19 2347 144/65 98 F (36.7 C) Oral 62 16 97 % 05/14/19 2019 139/67 97.5 F (36.4 C) Oral 80 17 99 % 05/14/19 1630 140/63 98.5 F (36.9 C) Oral 74 16 - 05/14/19 1546 139/65 98.2 F (36.8 C) - 67 16 96 % 05/14/19 1513 139/67 97.9 F (36.6 C) Oral 75 16 99 % 05/14/19 1210 145/68 98.5 F (36.9 C) Oral 80 16 97 % 05/14/19 1147 146/67 97.9 F (36.6 C) Oral 72 16 97 % Intake/Output Summary (Last 24 hours) at 05/15/19 0931 Last data filed at 05/15/19 0525 Gross per 24 hour Intake 2216 ml Output 1800 ml Net 416 ml Patient Vitals for the past 96 hrs: Weight 05/13/19 1634 87.5 kg (192 lb 14.4 oz) DATA Recent Labs Lab 05/15/19 0536 05/14/19 0500 05/13/19 1704 WBC 3.97 3.44* 2.46* RBC 2.67* 2.73* 2.14* HGB 8.9* 9.2* 7.3* HCT 25.9* 26.3* 21.9* MCV 97.1 96.4 102.3* MCH 33.2 33.6 34.2* MCHC 34.2 34.8 33.4 RDW 76.6* 70.4* 92.3* PLT 52* 18* 11* MPV 7.3 8.1 8.3 BANDSABS -- -- 0.05 NEUTROABS 1.99 1.72* -- LYMPHSABS 1.41 1.30 -- MONOSABS 0.55 0.41 -- BASOSABS 0.01 0.01 -- EOSABS 0.01 0.00 -- MORPH 4+ 4+ 4+ Recent Labs Lab 05/14/19 0500 05/13/19 1704 NA 140 143 K 4.1 3.9 CL 109 109 CO2 24 26 ANIONGAP 11 12 GLUF 103* 103* BUN 12 13 CREATININE 0.7 0.71 BCR 17 18 CA 8.9 9.0 ALB 3.2* 4.2 GLOB 3.4 2.5 AG 0.9* 1.7 PROT 6.6 6.7 BILITOT 1.2 0.7 ALT 24 20 AST 17 17 EGFR >60 >60 PHOS 3.2 3.8 MG 2.4 2.2 IMAGING No results found. PHYSICAL EXAM: BP 139/85 (BP Location: Left upper arm) | Pulse 70 | Temp 97.9 F (36.6 C) (Oral) | R chasity 20 | Ht 1.626 m (5' 4") | Wt 87.5 kg (192 lb 14.4 oz) | SpO2 97% | ? No | BMI 33.11 kg/m General: Alert and oriented. No acute distress. Vital signs are stable and within normal ra nge. Affect appropriate. ECOG status 0. Pain level is 0 on a scale of 0-10. Skin: Mediport site without oozing of blood. HEENT: Conjunctivae are clear. Sclera anicteric. Oral mucosa is moist and pink without les ions or evidence of thrush. No blood in the back of her oropharynx. Epistatic place right nare with minimal bruising around the insertion. Lungs: Clear to auscultation without wheezes, rales, or rhonchi. Respiratory effort relaxed . Heart: Regular rate and rhythm at 59. Musculoskeletal: Bones and joints are unremarkable. Extremities: No edema. Psychiatric: No signs of depression or anxiety. Maintains good eye contact, asks appropriat e questions, remains fully engaged. 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 [address] atus post 3 cycles of neoadjuvant dose dense carboplatin/paclitaxel followed by optimal debu lking surgery and 3 additional adjuvant cycles of chemotherapy completing this in September 20. Fortunately, disease recurred in December 2018. She has been receiving palliative chemother apy with carboplatin AUC for IV day 1 gemcitabine 1000 mg/m IV day 1 and 8 and bevacizumab 15 mg/kg IV day 1 on a 21-day cycle since January 2019. Most recently she received cycle 5-d ay 8 May 07, 2019. She is due for cycle 6 May 21, 2019 and I anticipate she will remain on scheduled for this . Pancytopenia Secondary to recent chemotherapy. White cells 3970 with absolute neutrophil count 1990. No intervention required. Hemoglobin now stable at 8.9 with hematocrit 25.9. No indication for further transfusion at present. Thrombocytopenia with platelets 52,000. No transfusion. Epistaxis Second significant epistaxis within a month. Exacerbated by thrombocytopenia. Managed by ENT. To keep epistat in place 3-5 days. Oncology will follow along on an as-needed basis. Please do not hesitate to contact us wit h concerns or questions. Code Status: Full Code CIERRA JOSHI 05/15/20199:31 AM onversion T ransaction, Provider Unknown - 05/14/2019 5:09 PM PDTFormatting of this note might be diffe rent from the original. Nurse Progress Note by Senait Lehman RN at 05/14/191708 Author: Senait Lehman RN Service: (none) Author Type: Registered Nurse Filed: 05/14/19 1357 Date of Service: 05/14/191708 Status: Signed Banquet Supervisor: Senait Lehman RN (Registered Nurse) Transfused 2 units of platelets. Tolerated transfusion with no reaction. Mediport accessed. No sign of active bleed from the nares and/or other places. Patient laying in bed, no sign of distress. Vital signs are stable. Afebrile. Denies pain w hen asked. Patient calls appropriately. Call button within reach. HOB up 35 deg. Siderail up x2. Bed in lowest position. Wheels are locked. Will continue to monitor patient. Senait hidalgo RN onver yuri Transaction, Provider Unknown - 05/14/2019 2:21 PM PDT Progress Notes by Alisha De La Torre RD at 05/14/19 1421 Author: Alisha De La Torre RD Service: (none) Author Type: Registered Dietitian Filed: 05/14/19 1422 Date of Service: 05/14/191420 Status: Signed Banquet Supervisor: Alisha De La Torre RD (Registered Dietitian) 05/14/19 1400 Subjective Timepoint Admit Pt c/o Pt triggered for screen secondary to dysphagia. Admitted d/t pancytopenia, had intra ctable nose bleed. 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 Sadler d a BLT before transferring to [facility]. Fluid / Beverage Intake Oral Fluids Amount Fluids ad norm. Liquid Meal Replacement or Supplement Agreeable to try Ensure daily. Food Intake Amount of Food Reports she has been eating less than is typical d/t pureed diet order. RN c onfirms that pureed diet is d/t patients plugged nose limiting her ability to chew. Pt repor ts her appetite is very good and she was "starving", ordered her some soup, mashed potatoes, and an Ensure. Type of Food / Meals General pureed diet Parenteral Nutrition Intake Rate/Solution NS at 75 mL/hr Nutrition-Focused Physical Findings Overall Appearance Appears adequalty nourished. Digestive System (Mouth to Rectum) Pt reports no history of dysphagia, expressed frustratio n with restrictive diet. 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 Anthropometrics Weight change Admit wt: 87.5 kg. BMI of 33 considered obese. Pt reports wt has been stable , medical records confirm. Monitor wt trend. Biochemical data, medical tests, and procedures reviewed Biochemical data, medical tests, and procedures reviewed Labs reviewed. Estimated Energy Needs Total Energy Estimated Needs 4335-5485 kcal/day Method for Estimating Needs 25-30 kcal/kg per 62.78 AdjBW Estimated Protein Needs Total Protein Estimated Needs 75-94 g/day Method for Estimating Needs 1.2-1.5 g/kg Recommendations Recommended energy needs General diet with modified textures as needed. Recommend RUBBER THREAD SPOOLER evalu ation to determine safest PO intake, liberalize diet as possible to promote adequate intake. Monitor and follow per protocol. Nutritional Risk Nutritional risk Moderate Follow up date 05/19/19 Lynne John John, JORDY 05/14/2019 onver yuri Teixeira, Provider Unknown - 05/14/2019 11:51 AM PDT Case Management by Jaida Shen RN at 05/14/19 1151 Author: Jaida Shen RN Service: (none) Author Type: Top Coater Filed: 05/14/19 1231 Date of Service: 05/14/19 1151 Status: Signed Banquet Supervisor: Jaida Shen RN (Top Coater) 05/14/19 1142 Discharge Planning Evaluation Admitting Diagnosis Pancytopenia Readmission No Living Arrangements Spouse/significant other Support Systems Spouse/significant other;Children;Family members Type of Residence Private residence House type House-1 story Independent with ADL's Yes Independent with Mobility Yes Home Care Services No Caregiver after Discharge Yes Caregiver Name Jared Lopez Relationship to Patient spouse Phone number [phone] Mental Status Oriented Prior functional status independent Anticipated Discharge Plan Post Acute Care Needs None at this time Plan communicated to patient/family Yes Resources Financial concerns No Transportation issues No Patient/Family concerns No Prescription Plan Yes Name of Pharmacy [facility] Previous home health equipment No Vascular access device Yes Vascular access type port Anticipated Disposition Facility Type Home Met with patient and discussed discharge planning, Pt is a 58 y.o., female admitted due to pancytopenia. Pt has a history of ovarian cancer. Pt lives with her spouse in [place], [place] and has been independent with adls and mobility. Patient's PCP is:Per PT None Patient's insurance: medicare, medicaid Coverage concerns: no Medication coverage/concerns: no Rx Bedside Delivery: no Community resources utilized / needed: tbd Assistance in transportation: spouse Identification of any specific education / training: tbd Barriers to Discharge / Alternative housing needed: no Anticipated DCP: home Jaida Shen RN CM Star Levin i, MD - 05/14/2019 11:30 AM PDT Progress Notes by Star Cedeño MD at 05/14/19 1130 Author: Star Cedeño MD Service: Hospitalist Author Type: Physician Filed: 05/14/19 1147 Date of Service: 05/14/191129 Status: Signed Banquet Supervisor: Star Cedeño MD (Physician) [facility] Service: Hospitalist Progress Note Hospital Day: LOS: 1 day Post-Op Day: * No surgery found * SUBJECTIVE Patient Summary: Events Overnight: Patient feels better and Rhino Rocket is in place in the right nostr il. Packing is covered with dry blood but no active bleeding is seen. Patient denies any s ore throat, chest pain, shortness of breath, nausea or vomiting. No fever or chills. Scheduled Medications acetaminophen 650 mg Oral Once mometasone 220 mcg Inhalation Daily nicotine 1 patch Transdermal Daily piperacillin-tazobactam 3.375 g 3.375 g Intravenous Q8H Continuous Infusions sodium chloride (IV) 75 mL/hr at 05/14/19 0804 PRN Medications acetaminophen OR acetaminophen, albuterol, aluminum-magnesium hydroxide-simethicone, ca lcium carbonate, HYDROcodone-acetaminophen OR HYDROcodone-acetaminophen, lactulose, lido janak, melatonin, ondansetron OR ondansetron, oxymetazoline, polyethylene glycol OBJECTIVE Vital Signs: BP 143/65 (BP Location: Left upper arm) | Pulse 68 | Temp 98 F (36.7 C) (Oral) | Res p 16 | Ht 1.626 m (5' 4") | Wt 87.5 kg (192 lb 14.4 oz) | SpO2 98% | ? No | BMI 33.11 kg/m Temp: [97.8 F (36.6 C)-99.1 F (37.3 C)] 98 F (36.7 C) (05/14 805) BP: (132-186)/(58-74) 143/65 (05/14 805) Heart Rate: [66-116] 68 (05/14 805) Resp: [16-22] 16 (05/14 0805) SpO2: [96 %-99 %] 98 % (05/14 0330) Height: [162.6 cm (5' 4")] 162.6 cm (5' 4") (05/13 1634) Weight: [87.5 kg (192 lb 14.4 oz)] 87.5 kg (192 lb 14.4 oz) (05/13 1634) BMI (Calculated): [33.2] 33.2 (05/13 163) Intake/Output Summary (Last 24 hours) at 05/14/19 1133 Last data filed at 05/14/19 1000 Gross per 24 hour Intake 2546 ml Output 850 ml Net 1696 ml Physical Exam Constitutional: She is oriented to person, place, and time. She appears well-developed and well-nourished. No distress. HENT: Mouth/Throat: Oropharynx is clear and moist. No oropharyngeal exudate. Right nostril packing in place. Packing soaked with dry blood butno active bleeding. Eyes: Pupils are equal, round, and reactive to light. No scleral icterus. Neck: Neck supple. No JVD present. Cardiovascular: Normal rate, regular rhythm, normal heart sounds and intact distal pulses. Exam reveals no gallop and no friction rub. No murmur heard. Pulmonary/Chest: Effort normal and breath sounds normal. No respiratory distress. She has n o wheezes. She has no rales. She exhibits no tenderness. Abdomina/Gl: Soft. Bowel sounds are normal. She exhibits no distension and no mass. There i s no tenderness. There is no rebound and no guarding. No hernia. Musculoskeletal: She exhibits no edema, tenderness or deformity. Neurological: She is alert and oriented to person, place, and time. No cranial nerve defici t. Skin: Skin is warm and dry. No rash noted. No erythema. There is pallor. Psychiatric: She has a normal mood and affect. Her behavior is normal. Thought content norm al. Nursing note and vitals reviewed. DATA CBC: Lab Results Component Value Date WBC 3.44 (L) 05/14/2019 RBC 2.73 (L) 05/14/2019 HGB 9.2 (L) 05/14/2019 HCT 26.3 (L) 05/14/2019 MCV 96.4 05/14/2019 MCH 33.6 05/14/2019 MCHC 34.8 05/14/2019 RDW 70.4 (H) 05/14/2019 PLT 18 (LL) 05/14/2019 MPV 8.1 05/14/2019 DIFFTYPE AUTOMATED 05/14/2019 CMP: Lab Results Component Value Date NA 140 05/14/2019 K 4.1 05/14/2019 CL 109 05/14/2019 CO2 24 05/14/2019 ANIONGAP 11 05/14/2019 GLUF 103 (H) 05/14/2019 BUN 12 05/14/2019 CREATININE 0.7 05/14/2019 BCR 17 05/14/2019 CA 8.9 05/14/2019 PROT 6.6 05/14/2019 ALB 3.2 (L) 05/14/2019 GLOB 3.4 05/14/2019 BILITOT 1.2 05/14/2019 ALP 65 05/14/2019 AST 17 05/14/2019 ALT 24 05/14/2019 EGFR >60 05/14/2019 No results found. PROBLEM LIST Principal Problem: Pancytopenia (HCC) Active Problems: Chronic deep vein thrombosis (DVT) of right upper extremity (HCC) Malignant neoplasm of left ovary (HCC) Epistaxis Coagulopathy (HCC) Tobacco use disorder Acute cystitis without hematuria ASSESSMENT & PLAN Epistaxis due to severe thrombocytopenia. He is required anterior nasal packing consistent bleeding is stopped. She also received platelet transfusions yesterday. E NT evaluation i s awaited. Severe thrombocytopenia due to recent chemotherapy 2 weeks ago for ovarian cancer. Patient received platelet transfusions yesterday and her platelet count has gone up from 11 to 18. However patient will need 1 more unit of platelets to keep a count around 25. Severe anemia. Due to recent chemotherapy. Patient received 2 units of blood without any immediate complications. H and H is stable at 9.2 and 26.3 respectively today. We will rep eat platelets, hemoglobin, hematocrit and white count tomorrow. Pancytopenia. Related to chemotherapy. Plan as above. History of ovarian cancer. Status post debulking surgery followed by chemotherapy. Her la st chemotherapy cycle was 2 weeks ago. Patient follows Dr. Clifford. UTI? Per UA. However patient denies any symptoms of UTI. Patient is empirically on Zosyn . Will follow urine culture. Tobacco abuse. On nicotine patches. DVT prophylaxis. Will avoid chemical prophylaxis due to severe thrombus cytopenia, anemia and recurrent epistaxis. Disposition: Likely discharge home tomorrow. Code Status: Full Code Star Cedeño MD 05/14/2019 onversion Tra nsaction, Provider Unknown - 05/14/2019 6:17 AM PDTFormatting of this note might be differe nt from the original. Nurse Progress Note by Anitha Simons RN at 05/14/19616 Author: Anitha Simons RN Service: (none) Author Type: Registered Nurse Filed: 05/14/19619 Date of Service: 05/14/19616 Status: Signed Banquet Supervisor: Anitha Simons RN (Registered Nurse) End of shift note: Pt tolerated both units of PRBC without any s/s of reaction or adverse e vent. Pt continues to have post-nasal drip of blood and is frequently coughing up blood from throat of blowing L side of nose that is bloody and/or has clots occasionally. Some bloody oozing around mediport also. APAP given x1 for sinus pressure from Rhinorocket that remains in R nare. Pt also reported a small amount of drainage from R nare during the night but that it stopped (this RN did not witness drainage coming form R nare throughout shift). Pt calls appropriately and has been sleeping well. No other changes to note. End of shift audit complete. 24 hour chart check complete. onver yuri Transaction, Provider Unknown - 05/13/2019 6:27 PM PDT Progress Notes by Jessica Garza RPH at 05/13/191826 Author: Jessica Garza RPH Service: Pharmacy Author Type: Pharmacist Filed: 05/13/191826 Date of Service: 05/13/191826 Status: Signed Banquet Supervisor: Jessica Garza RPH (Pharmacist) Clinical Pharmacy Note: Renal Monitoring Ramila Lopez 58 y.o. female Ht Readings from Last 1 Encounters: 05/13/19 1.626 m (5' 4") Wt Readings from Last 1 Encounters: 05/13/19 87.5 kg (192 lb 14.4 oz) Serum creatinine: 0.71 mg/dL 05/13/19 1704 Estimated creatinine clearance: 91.3 mL/min Pharmacy dosing for renal function per Dr. Jared Piña. Currently, there are no medications needing to be adjusted as patient's renal function is n ormal. Pharmacy will continue to monitor for changes in medication orders and in renal function an d adjust accordingly. Jessica Garza Pharm D, [facility] 05/13/2019 6:26 PM onver yuri Transaction, Provider Unknown - 05/13/2019 6:00 PM PDT Progress Notes by Jessica Garza RPH at 05/13/19 1800 Author: Jessica Garza RPH Service: Pharmacy Author Type: Pharmacist Filed: 05/13/191799 Date of Service: 05/13/19 1800 Status: Signed Banquet Supervisor: Jessica Garza RPH (Pharmacist) Clinical Pharmacy Note: Piperacillin-Tazobactam (Zosyn) Extended Infusion Pharmacy to initiate Zosyn per Dr. Piña S/O: 58 y.o. female starting Zosyn on 05/13/19 for Prophylaxis following nasal tampon placement. Ht Readings from Last 1 Encounters: 05/13/19 1.626 m (5' 4") Wt Readings from Last 1 Encounters: 05/13/19 87.5 kg (192 lb 14.4 oz) Serum creatinine: 0.71 mg/dL 05/13/19 1704 Estimated creatinine clearance: 91.3 mL/min NEUTROPHILS ABS Date Value Ref Range Status 05/07/2019 1.62 (L) 1.90 - 7.40 10*3/uL Final A/P: Renal function status: CrCl > 20 ml/min, CrCl <20 ml/min, CRRT, HD, PD Will begin Zosyn with loading dose of 4.5 g IV over 30 min, then 4 hours after dose is comp lete, continue with 3.375 g IV Q8H (each 3.375 g dose to be infused over 4 hours). Pharmacy will continue monitoring patient for appropriate dosing per renal function. Jessica Garza [facility] 5:59 PM 05/13/2019 Pharmacist onver yuri Teixeira, Provider Unknown - 05/13/2019 4:53 PM PDT Nurse Progress Note by Jillian Cruz RN at 05/13/191652 Author: Jillian Cruz RN Service: (none) Author Type: Registered Nurse Filed: 05/13/191815 Date of Service: 05/13/191652 Status: Addendum Banquet Supervisor: Jillian Cruz RN (Registered Nurse) Related Notes: Original Note by Jillian Cruz RN (Registered Nurse) filed at 05/13/19 16 55 End of Shift Note: Pt admitted to floor resting comfortably in bed. Rhinorocket in place, but pt reports that nose is still oozing down throat. 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 Pt states she was told by her PCP to not take aspirin b ut she states "I take it everyday anyways for heart health. I had it last night" End of shift review complete. docume nted in this encounter Plan of Treatment +--------+ + + + + | Date | Type | Specialty | Care Team | Description | +--------+ + + + + | 12/17/ | Appointment | Infusion Therapy | Yancy Clifford MD | | | 2019 | | | [address] | | | | | | [place] | | | | | | [address] | | | | | | | | +--------+ + + + + | 12/17/ | Office | Oncology | Yancy Clifford MD | | | 2019 | Visit | | [address] | | | | | | [place] | | | | | | [address] | | | | | | | | +--------+ + + + + | 12/17/ | Appointment | Infusion Therapy | Yancy Clifford MD | | | 2019 | | | [address] | | | | | | [place] | | | | | | [address] | | | | | | | | +--------+ + + + + | 01/07/ | Appointment | Infusion Therapy | Yancy Clifford MD | | | 2019 | | | [address] | | | | | | [place] | | | | | | [address] | | | | | | | | +--------+ + + + + | 01/07/ | Office | Oncology | Yancy Clifford MD | | | 2019 | Visit | | [address] | | | | | | [place] | | | | | | [address] | | | | | | | | +--------+ + + + + | 01/07/ | Appointment | Infusion Therapy | Yancy Clifford MD | | | 2019 | | | [address] | | | | | | [place] | | | | | | [address] | | | | | | | | +--------+ + + + + documented as of this encounter Procedures + +--------+ + + + | Procedure Name | Priori | Date/Time | Associated Diagnosis | Comments | | | ty | | | | + +--------+ + + + | EXTERNAL LAB: [facility] | Routin | 05/16/2019 | | Results for this | | | e | 4:58 AM | | procedure are in the | | | | PDT | | results section. | + +--------+ + + + | BASIC METABOLIC | Routin | 05/16/2019 | | Results for this | | PANEL | e | 4:58 AM | | procedure are in the | | | | PDT | | results section. | + +--------+ + + + | EXTERNAL LAB: CBC | Routin | 05/15/2019 | | Results for this | | | e | 5:36 AM | | procedure are in the | | | | PDT | | results section. | + +--------+ + + + | EXTERNAL LAB: CBC | Routin | 05/14/2019 | | Results for this | | | e | 5:00 AM | | procedure are in the | | | | PDT | | results section. | + +--------+ + + + | PROTIME INR | Routin | 05/14/2019 | | Results for this | | | e | 5:00 AM | | procedure are in the | | | | PDT | | results section. | + +--------+ + + + | PHOSPHORUS | Routin | 05/14/2019 | | Results for this | | | e | 5:00 AM | | procedure are in the | | | | PDT | | results section. | + +--------+ + + + | MAGNESIUM | Routin | 05/14/2019 | | Results for this | | | e | 5:00 AM | | procedure are in the | | | | PDT | | results section. | + +--------+ + + + | COMPREHENSIVE | Routin | 05/14/2019 | | Results for this | | METABOLIC PANEL | e | 5:00 AM | | procedure are in the | | | | PDT | | results section. | + +--------+ + + + | URINALYSIS WITH | Routin | 05/13/2019 | | Results for this | | MICROSCOPIC WITH | e | 5:46 PM | | procedure are in the | | CULTURE IF INDICATED | | PDT | | results section. | + +--------+ + + + | CULTURE, URINE | Routin | 05/13/2019 | | Results for this | | | e | 5:46 PM | | procedure are in the | | | | PDT | | results section. | + +--------+ + + + | ECG 12 LEAD | Routin | 05/13/2019 | | Results for this | | | e | 5:33 PM | | procedure are in the | | | | PDT | | results section. | + +--------+ + + + | CBC WITH MANUAL | Routin | 05/13/2019 | | Results for this | | DIFFERENTIAL | e | 5:04 PM | | procedure are in the | | | | PDT | | results section. | + +--------+ + + + | PTT | Routin | 05/13/2019 | | Results for this | | | e | 5:04 PM | | procedure are in the | | | | PDT | | results section. | + +--------+ + + + | PROTIME INR | Routin | 05/13/2019 | | Results for this | | | e | 5:04 PM | | procedure are in the | | | | PDT | | results section. | + +--------+ + + + | PHOSPHORUS | Routin | 05/13/2019 | | Results for this | | | e | 5:04 PM | | procedure are in the | | | | PDT | | results section. | + +--------+ + + + | MAGNESIUM | Routin | 05/13/2019 | | Results for this | | | e | 5:04 PM | | procedure are in the | | | | PDT | | results section. | + +--------+ + + + | COMPREHENSIVE | Routin | 05/13/2019 | | Results for this | | METABOLIC PANEL | e | 5:04 PM | | procedure are in the | | | | PDT | | results section. | + +--------+ + + + documented in this encounter Results External Lab: [facility] (05/16/2019 4:58 AM PDT) + + +---- + + + | Component | Value | Ref Range | Performed | Pathologist | | | | | At | Signature | + + +---- + + + | WBC | 4.08 | 3.8 0 - 11.00 | EXTERNAL | | | | | K/u L | LAB | | + + +---- + + + | RED CELL | 2.64 (L) | 3.7 0 - 5.10 | EXTERNAL | | | COUNT | | M/u L | LAB | | + + +---- + + + | Hgb | 8.9 (L) | 11. 3 - 15.5 | EXTERNAL | | | | | g/d L | LAB | | + + +---- + + + | Hematocrit, | 25.9 (L) | 34. 0 - 46.0 % | EXTERNAL | | | POC | | | LAB | | + + +---- + + + | MCV | 98.3 | 80. 0 - 100.0 fl | EXTERNAL | | | | | | LAB | | + + +---- + + + | MCH | 33.8 | 27. 0 - 34.0 pg | EXTERNAL | | | | | | LAB | | + + +---- + + + | MCHC | 34.4 | 32. 0 - 35.5 | EXTERNAL | | | | | g/d L | LAB | | + + +---- + + + | RDW-CV | 78.3 (H) | 37 - 53 fl | EXTERNAL | | | | | | LAB | | + + +---- + + + | Platelet | 39 (LL)Comment: RESULT | 150 - 400 K/uL | EXTERNAL | | | Count | READ BACK BY:REGINE V 6RP | | LAB | | | Plasma | 28 05/16/19 CMS | | | | | |REGINE V 6RP 62705/16/19 CMS | | | | | | | | | | + + +---- + + + | MPV | 6.9 | fl | EXTERNAL | | | | | | LAB | | + + +---- + + + | Differentia | AUTOMATED | | EXTERNAL | | | l Type | | | LAB | | + + +---- + + + | % Segmented | 47.49 | % | EXTERNAL | | | | | | LAB | | | Neutrophils | | | | | + + +---- + + + | % | 35.19 | % | EXTERNAL | | | Lymphocytes | | | LAB | | + + +---- + + + | % Monocytes | 16.77 | % | EXTERNAL | | | | | | LAB | | + + +---- + + + | % | 0.17 | % | EXTERNAL | | | Eosinophils | | | LAB | | + + +---- + + + | % Basophils | 0.38 | % | EXTERNAL | | | | | | LAB | | + + +---- + + + | Absolute | 1.94 | 1.9 0 - 7.40 | EXTERNAL | | | Segmented | | K/u L | LAB | | | Neutrophils | | | | | + + +---- + + + | Absolute | 1.43 | 1.0 0 - 3.90 | EXTERNAL | | | Lymphocytes | | K/u L | LAB | | + + +---- + + + | Absolute | 0.68 | 0.0 0 - 0.80 | EXTERNAL | | | Monocytes | | K/u L | LAB | | + + +---- + + + | Absolute | 0.01 | 0.0 0 - 0.50 | EXTERNAL | | | Eosinophils | | K/u L | LAB | | + + +---- + + + | Absolute | 0.02 | 0.0 0 - 0.10 | EXTERNAL | | | Basophils | | K/u L | LAB | | + + +---- + + + | RBC | 4+Comment: | | EXTERNAL | | | Morphology | ANISO1+POLYNORMAL PLT | | LAB | | | | MORPHTesting performed | | | | | | at [facility], [address] | | | | | | [place], | | | | | | [place] [address] | | | | | |Testing performed at [facility], [address] [place] [address] | | | | | | | | | | + + +---- + + + + + | Specimen | + + | Blood specimen | | (specimen) | + + + +---------+ + + | Performing | Address | City/State/Zipcode | Phone Number | | Organization | | | | + +---------+ + + | EXTERNAL LAB | | | | + +---------+ + + Basic Metabolic Panel (05/16/2019 4:58 AM PDT) + + + + + + | Component | Value | Ref Range | Performed | Pathologist | | | | | At | Signature | + + + + + + | Na | 142 | 135 - 145 | EXTERNAL | | | | | mmol/L | LAB | | + + + + + + | K | 4.1 | 3.5 - 4.9 | EXTERNAL | | | | | mmol/L | LAB | | + + + + + + | Cl | 110 (H) | 99 - 109 mmol/L | EXTERNAL | | | | | | LAB | | + + + + + + | CO2 | 23 | 23 - 32 mmol/L | EXTERNAL | | | | | | LAB | | + + + + + + | Anion Gap | 13 | 5 - 20 mmol/L | EXTERNAL | | | | | | LAB | | + + + + + + | Glucose, | 102 (H) | 65 - 99 mg/dL | EXTERNAL | | | Fasting | | | LAB | | + + + + + + | BUN | 11 | 8 - 25 mg/dL | EXTERNAL | | | | | | LAB | | + + + + + + | Creatinine | 0.6 | 0.50 - 1.00 | EXTERNAL | | | | | mg/dL | LAB | | + + + + + + | BUN/Creatin | 18 | | EXTERNAL | | | ine Ratio | | | LAB | | + + + + + + | Calcium | 9.0 | 8.5 - 10.5 | EXTERNAL | [...] | | | | performed at [facility], [address] | | | | | [place], | | | | | | [place] [address] | | | | + + + [...] + +---------+ + + External Lab: CBC (05/15/2019 5:36 AM PDT) + + + + + + | Component | Value | Ref Range | Performed | Pathologist | | | | | At | Signature | + + + + + + | WBC | 3.97 | 3.80 - 11.00 | EXTERNAL | | | | | K/uL | LAB | | + + + + + + | RED CELL | 2.67 (L) | 3.70 - 5.10 | EXTERNAL | | | COUNT | | M/uL | LAB | | + + + + + + | Hgb | 8.9 (L) | 11.3 - 15.5 | EXTERNAL | | | | | g/dL | LAB | | + + + + + + | Hematocrit, | 25.9 (L) | 34.0 - 46.0 % | EXTERNAL | | | POC | | | LAB | | + + + + + + | MCV | 97.1 | 80.0 - 100.0 fl | EXTERNAL | | | | | | LAB | | + + + + + + | MCH | 33.2 | 27.0 - 34.0 pg | EXTERNAL | | | | | | LAB | | + + + + + + | MCHC | 34.2 | 32.0 - 35.5 | EXTERNAL | | | | | g/dL | LAB | | + + + + + + | RDW-CV | 76.6 (H) | 37 - 53 fl | EXTERNAL | | | | | | LAB | | + + + + + + | Platelet | 52 (L) | 150 - 400 K/uL | EXTERNAL | | | Count | | | LAB | | | Plasma | | | | | + + + + + + | MPV | 7.3 | fl | EXTERNAL | | | | | | LAB | | + + + + + + | Differentia | AUTOMATED | | EXTERNAL | | | l Type | | | LAB | | + + + + + + | % Segmented | 50.15 | % | EXTERNAL | | | | | | LAB | | | Neutrophils | | | | | + + + + + + | % | 35.58 | % | EXTERNAL | | | Lymphocytes | | | LAB | | + + + + + + | % Monocytes | 13.75 | % | EXTERNAL | | | | | | LAB | | + + + + + + | % | 0.34 | % | EXTERNAL | | | Eosinophils | | | LAB | | + + + + + + | % Basophils | 0.18 | % | EXTERNAL | | | | | | LAB | | + + + + + + | Absolute | 1.99 | 1.90 - 7.40 | EXTERNAL | | | Segmented | | K/uL | LAB | | | Neutrophils | | | | | + + + + + + | Absolute | 1.41 | 1.00 - 3.90 | EXTERNAL | | | Lymphocytes | | K/uL | LAB | | + + + + + + | Absolute | 0.55 | 0.00 - 0.80 | EXTERNAL | | | Monocytes | | K/uL | LAB | | + + + + + + | Absolute | 0.01 | 0.00 - 0.50 | EXTERNAL | | | Eosinophils | | K/uL | LAB | | + + + + + + | Absolute | 0.01 | 0.00 - 0.10 | EXTERNAL | | | Basophils | | K/uL | LAB | | + + + + + + | RBC | 4+Comment: ANISONORMAL | | EXTERNAL | | | Morphology | PLT MORPHTesting | | LAB | | | | performed at [facility], [address] | | | | | | [address], | | | | | | [place] [address] | | | | | | | [...] | | | + +---------+ + + Protime INR (05/14/2019 5:00 AM PDT) + + + + + [...] | | | | | performed at [facility];[address] | | | | | [address];[place] | | | | | | [address] | | | | + + + [...] + +---------+ + + External Lab: CBC (05/14/2019 5:00 AM PDT) + + + + + + | Component | Value | Ref Range | Performed | Pathologist | | | | | At | Signature | + + + + + + | WBC | 3.44 (L) | 3.80 - 11.00 | EXTERNAL | | | | | K/uL | LAB | | + + + + + + | RED CELL | 2.73 (L) | 3.70 - 5.10 | EXTERNAL | | | COUNT | | M/uL | LAB | | + + + + + + | Hgb | 9.2 (L) | 11.3 - 15.5 | EXTERNAL | | | | | g/dL | LAB | | + + + + + + | Hematocrit, | 26.3 (L) | 34.0 - 46.0 % | EXTERNAL | | | POC | | | LAB | | + + + + + + | MCV | 96.4 | 80.0 - 100.0 fl | EXTERNAL | | | | | | LAB | | + + + + + + | MCH | 33.6 | 27.0 - 34.0 pg | EXTERNAL | | | | | | LAB | | + + + + + + | MCHC | 34.8 | 32.0 - 35.5 | EXTERNAL | | | | | g/dL | LAB | | + + + + + + | RDW-CV | 70.4 (H) | 37 - 53 fl | EXTERNAL | | | | | | LAB | | + + + + + + | Platelet | 18 (LL)Comment: RESULT | 150 - 400 K/uL | EXTERNAL | | | Count | READ BACK BY:AUGUSTINE Koroma 6RP | | LAB | | | Plasma | 37 05/14/19 [facility] | | | | | |AUGUSTINE Koroma 6RP 37 05/14/19 [facility] | | | | | | | | | | + + + + + + | MPV | 8.1 | fl | EXTERNAL | | | | | | LAB | | + + + + + + | Differentia | AUTOMATED | | EXTERNAL | | | l Type | | | LAB | | + + + + + + | % Segmented | 49.98 | % | EXTERNAL | | | | | | LAB | | | Neutrophils | | | | | + + + + + + | % | 37.89 | % | EXTERNAL | | | Lymphocytes | | | LAB | | + + + + + + | % Monocytes | 11.91 | % | EXTERNAL | | | | | | LAB | | + + + + + + | % | 0.02 | % | EXTERNAL | | | Eosinophils | | | LAB | | + + + + + + | % Basophils | 0.20 | % | EXTERNAL | | | | | | LAB | | + + + + + + | Absolute | 1.72 (L) | 1.90 - 7.40 | EXTERNAL | | | Segmented | | K/uL | LAB | | | Neutrophils | | | | | + + + + + + | Absolute | 1.30 | 1.00 - 3.90 | EXTERNAL | | | Lymphocytes | | K/uL | LAB | | + + + + + + | Absolute | 0.41 | 0.00 - 0.80 | EXTERNAL | | | Monocytes | | K/uL | LAB | | + + + + + + | Absolute | 0.00 | 0.00 - 0.50 | EXTERNAL | | | Eosinophils | | K/uL | LAB | | + + + + + + | Absolute | 0.01 | 0.00 - 0.10 | EXTERNAL | | | Basophils | | K/uL | LAB | | + + + + + + | RBC | 4+Comment: ANISO | | EXTERNAL | | | Morphology | | | LAB | | + + + + + + | Platelet | DECREASEDComment: | | EXTERNAL | | | Estimate | Testing performed at | | LAB | | | | [facility], [address] | | | | | | [place] | | | | | | [address] | | | | + + + + + + + + | Specimen | + + | Blood specimen | | (specimen) | + + + +---------+ + + | Performing | Address | City/State/Zipcode | Phone Number | | Organization | | | | + +---------+ + + | EXTERNAL LAB | | | | + +---------+ + + Phosphorus (05/14/2019 5:00 AM PDT) + + + + + + | Component | Value | Ref Range | Performed | Pathologist | | | | | At | Signature | + + + + + + | PHOSPHORUS | 3.2Comment: Testing | 2.3 - 4.8 mg/dL | EXTERNAL | | | | performed at [facility], [address] | | LAB | | | | [address], | | | | | | [place] [address] | | | | + + + + + + + + | Specimen | + + | Blood specimen | | (specimen) | + + + +---------+ + + | Performing | Address | City/State/Zipcode | Phone Number | | Organization | | | | + +---------+ + + | EXTERNAL LAB | | | | + +---------+ + + Magnesium (05/14/2019 5:00 AM PDT) + + + + + + | Component | Value | Ref Range | Performed | Pathologist | | | | | At | Signature | + + + + + + | Magnesium | 2.4Comment: Testing | 1.7 - 2.4 mg/dL | EXTERNAL | | | | performed at [facility], [address] | | LAB | | | | [address], | | | | | | [place] [address] | | | | + + + [...] + +---------+ + + Comprehensive Metabolic Panel (05/14/2019 5:00 AM PDT) + + + + + + | Component | Value | Ref Range | Performed | Pathologist | | | | | At | Signature | + + + + + + | Na | 140 | 135 - 145 | EXTERNAL | | | | | mmol/L | LAB | | + + + + + + | K | 4.1 | 3.5 - 4.9 | EXTERNAL | | | | | mmol/L | LAB | | + + + + + + | Cl | 109 | 99 - 109 mmol/L | EXTERNAL | | | | | | LAB | | + + + + + + | CO2 | 24 | 23 - 32 mmol/L | EXTERNAL | | | | | | LAB | | + + + + + + | Anion Gap | 11 | 5 - 20 mmol/L | EXTERNAL | | | | | | LAB | | + + + + + + | Glucose, | 103 (H) | 65 - 99 mg/dL | [...] + + + + | Protein, | 6.6 | 6.3 - 8.2 g/dL | EXTERNAL | | | Total | | | LAB | | + + + + + + | Albumin | 3.2 (L) | 3.6 - 5.0 g/dL | EXTERNAL | | | | | | LAB | | + + + + + + | Globulin | 3.4 | 1.3 - 4.9 g/dL | EXTERNAL | | | | | | LAB | | + + + + + + | A/G Ratio | 0.9 (L) | 1.0 - 2.4 | EXTERNAL | | | | | | LAB | | + + + + + + | Bilirubin | 1.2 | 0.1 - 1.5 mg/dL | EXTERNAL | | | Total | | | LAB | | + + + + + + | ALP, | 65 | 35 - 115 U/L | EXTERNAL | | | External | | | LAB | | + + + + + + | AST | 17 | 10 - 45 U/L | EXTERNAL | | | | | | LAB | | + + + + + + | ALT | 24 | 10 - 65 U/L | EXTERNAL [...] | | | | | performed at [facility], [address] | | | | | | [address], | | | | | | [place] [address] | | | | + + + + + + + + | Specimen | + + | Blood specimen | | (specimen) | + + + +---------+ + + | Performing | Address | City/State/Zipcode | Phone Number | | Organization | | | | + +---------+ + + | EXTERNAL LAB | | | | + +---------+ + + Culture, Urine (05/13/2019 5:46 PM PDT) + + | Specimen | + + | | + + + + + | Narrative | Performed At | + + + | Specimen Description [facility] | EXTERNAL LAB | | >100,000 CFU/ML | | | ESCHERICHIA COLIAbnormal | | | Suscepibility for - ESCHERICHIA COLI Ampicillin | | | SUSCEPTIBLESensitive Ampicillin + Sulbactam | | | SUSCEPTIBLESensitive Cefepime | | | SUSCEPTIBLESensitive Cefoxitin | | | SUSCEPTIBLESensitive Ceftazidime | | | SUSCEPTIBLESensitive Ceftriaxone | | | SUSCEPTIBLESensitive Ciprofloxacin | | | SUSCEPTIBLESensitive Gentamicin | | | SUSCEPTIBLESensitive Levofloxacin | | | SUSCEPTIBLESensitive Nitrofurantoin | | | SUSCEPTIBLESensitive Tobramycin | | | SUSCEPTIBLESensitive Trimethoprim + | | | SulfamethoxazoleSUSCEPTIBLESensitive | | + + + + +---------+ + + | Performing | Address | City/State/Zipcode | Phone Number | | Organization | | | | + +---------+ + + | EXTERNAL LAB | | | | + +---------+ + + Urinalysis with Microscopic with Culture if Indicated (05/13/2019 5:46 PM PDT) + + + + + [...] + + + + | Specific | 1.011 | 1.002 - 1.030 | EXTERNAL | | | [place] | | | LAB | | + + + + + + | Leukocyte | MODERATE (A) | | EXTERNAL | | | Esterase, | | | LAB | | | Urine | | | | | + + + + + + | Nitrite, | NEGATIVE | | EXTERNAL | | | Urine | | | LAB | | + + + + + + | Urobilinoge | NORMAL | mg/dL | EXTERNAL | | | n, Urine | | | LAB | | + + + + + + | Protein, | NEGATIVE | mg/dL | EXTERNAL | | | Urine | | | LAB | | + + + + + + | pH, Urine | 9.0 (H) | 5.0 - 8.0 | EXTERNAL | | | | | | LAB | | + + + + + + | Blood, | SMALL (A) | | EXTERNAL | | | [...] + + + | WBC, UA | >100 | 0 - 5 /hpf | EXTERNAL | | | | | | LAB | | + + + + + + | RBC, UA | 6-10 | 0 - 5 /hpf | EXTERNAL | | | | | | LAB | | + + + + + + | Epithelial | 6-10 | /lpf | EXTERNAL | | | Cells | | | LAB | | + + + + + + | Bacteria, | 1+ (A) | | EXTERNAL | | | UA | | | LAB | | + + + + + + | MUCUS UA | 1+Comment: Testing | | EXTERNAL | | | | performed at [facility] | | LAB | | | | [address];[place], [place] | | | | | | [address] | | | | + + + + + + + + | Specimen | + + | Urine specimen | | (specimen) | + + + +---------+ + + | Performing | Address | City/State/Zipcode | Phone Number | | Organization | | | | + +---------+ + + | EXTERNAL LAB | | | | + +---------+ + + ECG 12 lead (05/13/2019 5:33 PM PDT) + + + + + + | Component | Value | Ref Range | Performed | Pathologist | | | | | At | Signature | + + + + + + | DIAGNOSIS: | Normal sinus | | EXTERNAL | | | | rhythmNormal ECGNo | | LAB | | | | previous ECGs | | | | | | availableConfirmed by | | | | | | Chon Cerda MD | | | | | | (127) on 05/14/2019 | | | | | | 7:14:38 PM | | | | + + + + + + + + | Specimen | + + | | + + + + + | Narrative | Performed At | + + + | Historically converted procedure from [facility] environment | EXTERNAL LAB | + + + + +---------+ + + | Performing | Address | City/State/Zipcode | Phone Number | | Organization | | | | + +---------+ + + | EXTERNAL LAB | | | | + +---------+ + + PTT (05/13/2019 5:04 PM PDT) + + + + + + | Component | Value | Ref Range | Performed | Pathologist | | | | | At | Signature | + + + + + + | aPTT, | 26Comment: Testing | 23 - 32 seconds | EXTERNAL | | | Patient | performed at [facility];[address] | | LAB | | | | [address];[place], [place] | | | | | | [address] | | | | + + + + + + + + | Specimen | + + | Blood specimen | | (specimen) | + + + +---------+ + + | Performing | Address | City/State/Zipcode | Phone Number | | Organization | | | | + +---------+ + + | EXTERNAL LAB | | | | + +---------+ + + Protime INR (05/13/2019 5:04 PM PDT) + + + + + [...] | | | | | performed at [facility];[address] | | | | | | [address];[place], [place] | | | | | | [address] | | | | + + + + + + + + | Specimen | + + | Blood specimen | | (specimen) | + + + +---------+ + + | Performing | Address | City/State/Zipcode | Phone Number | | Organization | | | | + +---------+ + + | EXTERNAL LAB | | | | + +---------+ + + CBC with Manual Differential (05/13/2019 5:04 PM PDT) + + + + + + | Component | Value | Ref Range | Performed | Pathologist | | | | | At | Signature | + + + + + + | WBC | 2.46 (L) | 3.80 - 11.00 | EXTERNAL | | | | | K/uL | LAB | | + + + + + + | RED CELL | 2.14 (L) | 3.70 - 5.10 | EXTERNAL | | | COUNT | | M/uL | LAB | | + + + + + + | Hgb | 7.3 (L) | 11.3 - 15.5 | EXTERNAL | | | | | g/dL | LAB | | + + + + + + | Hematocrit, | 21.9 (L) | 34.0 - 46.0 % | EXTERNAL | | | POC | | | LAB | | + + + + + + | MCV | 102.3 (H) | 80.0 - 100.0 fl | EXTERNAL | | | | | | LAB | | + + + + + + | MCH | 34.2 (H) | 27.0 - 34.0 pg | EXTERNAL | | | | | | LAB | | + + + + + + | MCHC | 33.4 | 32.0 - 35.5 | EXTERNAL | | | | | g/dL | LAB | | + + + + + + | RDW-CV | 92.3 (H) | 37 - 53 fl | EXTERNAL | | | | | | LAB | | + + + + + + | Platelet | 11 (LL)Comment: RESULT | 150 - 400 K/uL | EXTERNAL | | | Count | READ BACK BY:KEISHA Stephenson RN | | LAB | | | Plasma | 6RP [id number] | | | | | |KEISHA Stephenson RN 6RP [id number] | | | | | | | | | | + + + + + + | MPV | 8.3 | fl | EXTERNAL | | | | | | LAB | | + + + + + + | Differentia | MANUAL | | EXTERNAL | | | l Type | | | LAB | | + + + + + + | Segmented | 55 | % | EXTERNAL | | | Neutrophils | | | LAB | | | Manual | | | | | + + + + + + | % Bands | 2 | % | EXTERNAL | | | | | | LAB | | + + + + + + | Lymphocytes | 35 | % | EXTERNAL | | | Manual | | | LAB | | + + + + + + | % Atypical | 3 | % | EXTERNAL | | | Lymphocytes | | | LAB | | + + + + + + | Monocytes | 5 | % | EXTERNAL | | | Manual | | | LAB | | + + + + + + | Absolute | 1.36 (L) | 1.90 - 7.40 | EXTERNAL | | | Neutrophils | | K/uL | LAB | | + + + + + + | Bands | 0.05 | 0.00 - 0.20 | EXTERNAL | | | Manual | | K/uL | LAB | | + + + + + + | Absolute | 0.86 (L) | 1.00 - 3.90 | EXTERNAL | | | Lymphocytes | | K/uL | LAB | | + + + + + + | Absolute | 0.07 (H) | K/uL | EXTERNAL | | | Atypical | | | LAB | | | Lymphocytes | | | | | + + + + + + | Absolute | 0.12 | 0.00 - 0.80 | EXTERNAL | | | Monocytes | | K/uL | LAB | | + + + + + + | Platelet | DECREASED | | EXTERNAL | | | Estimate | | | LAB | | + + + + + + | RBC | 4+Comment: | | EXTERNAL | | | Morphology | ANISO1+TEARDROPNORMAL | | LAB | | | | PLT MORPHTesting | | | | | | performed at [facility];[address] | | | | | | [facility];[place], [place] | | | | | | [address] | | | | | |Testing performed at [facility];[address] [place] [address];[place] [address] | | | | | | | [...] | | | + +---------+ + + Phosphorus (05/13/2019 5:04 PM PDT) + + + + + + | Component | Value | Ref Range | Performed | Pathologist | | | | | At | Signature | + + + + + + | PHOSPHORUS | 3.8Comment: Testing | 2.3 - 4.8 mg/dL | EXTERNAL | | | | performed at [facility] | | LAB | | | | [address];[place] | | | | | | [address] | | | | + + + + + + + + | Specimen | + + | Blood specimen | | (specimen) | + + + +---------+ + + | Performing | Address | City/State/Zipcode | Phone Number | | Organization | | | | + +---------+ + + | EXTERNAL LAB | | | | + +---------+ + + Magnesium (05/13/2019 5:04 PM PDT) + + + + + + | Component | Value | Ref Range | Performed | Pathologist | | | | | At | Signature | + + + + + + | Magnesium | 2.2Comment: Testing | 1.7 - 2.4 mg/dL | EXTERNAL | | | | performed at [facility];[address] | | LAB | | | | [address];[place], [place] | | | | | | [address] | | | | + + + [...] + +---------+ + + Comprehensive Metabolic Panel (05/13/2019 5:04 PM PDT) + + + + + + | Component | Value | Ref Range | Performed | Pathologist | | | | | At | Signature | + + + + + + | Na | 143 | 135 - 145 | EXTERNAL | | | | | mmol/L | LAB | | + + + + + + | K | 3.9 | 3.5 - 4.9 | EXTERNAL | | | | | mmol/L | LAB | | + + + + + + | Cl | 109 | 99 - 109 mmol/L | EXTERNAL | | | | | | LAB | | + + + + + + | CO2 | 26 | 23 - 32 mmol/L | EXTERNAL | | | | | | LAB | | + + + + + + | Anion Gap | 12 | 5 - 20 mmol/L | EXTERNAL | | | | | | LAB | | + + + + + + | Glucose, | 103 (H) | 65 - 99 mg/dL | EXTERNAL | | | Fasting | | | LAB | | + + + + + + | BUN | 13 | 8 - 25 mg/dL | EXTERNAL | | | | | | LAB | | + + + + + + | Creatinine | 0.71 | 0.50 - 1.00 | EXTERNAL | | | | | mg/dL | LAB | | + + + + + + | BUN/Creatin | 18 | | EXTERNAL | | | ine Ratio | | | LAB | | + + + + + + | Calcium | 9.0 | 8.5 - 10.5 | EXTERNAL | [...] + + + + | Globulin | 2.5 | 1.3 - 4.9 g/dL | EXTERNAL | | | | | | LAB | | + + + + + + | A/G Ratio | 1.7 | 1.0 - 2.4 | EXTERNAL | | | | | | LAB | | + + + + + + | Bilirubin | 0.7 | 0.1 - 1.5 mg/dL | EXTERNAL | | | Total | | | LAB | | + + + + + + | ALP, | 71 | 35 - 115 U/L | EXTERNAL | | | External | | | LAB | | + + + + + + | AST | 17 | 10 - 45 U/L | EXTERNAL | | | | | | LAB | | + + + + + + | ALT | 20 | 10 - 65 U/L | EXTERNAL [...] | | | | | performed at [facility];[address] | | | | | | [facility];[place], [place] | | | | | | [address] | | | | + + + [...] Visit Diagnoses Not on filedocumented in this encounter
--- OUTSIDE RECORDS SUMMARY | ~2019-12-09 | XMS | Encounter Summary ---
Demographics + + + | Address | [address] | | | [place] [address] | + + + | Home Phone [...] | | | | [place] [address] | | + + + + + | Emory Larios | ECON | Unknown | | + + + + + Care Team Providers + +------+ + | Care Peripheral Vascular Tech Name | Role | Phone | + +------+ + | Shannan Deng | PCP | | + +------+ + Encounter Details +--------+ + + + + | Date | Type | Department | Care Team | Description | +--------+ + + + + | 12/25/ | Orders Only | [facility] | Yancy Clifford MD | | | 2019 | | HEMATOLOGY AND | [address] | | | | | ONCOLOGY [address] [place] | [address] | [address] | | | | | [place] | | | | | | [address] | | | | | | [phone] | | | +--------+ + + + [...] [place] | | | | | | [address] | | | | | | | | +--------+ + + + + | 12/17/ | Office | Oncology | Yancy Clifford MD | | | 2019 | Visit | | [address] | | | | | | [place] | | | | | | [address] | | | | | | | | +--------+ + + + + | 12/17/ | Appointment | Infusion Therapy | Yancy Clifford MD | | | 2019 | | | [address] | | | | | | [place] | | | | | | [address] | | | | | | | | +--------+ + + + + | 01/07/ | Appointment | Infusion Therapy | Yancy Clifford MD | | | 2019 | | | [address] | | | | | | [place] | | | | | | [address] | | | | | | | | +--------+ + + + + | 01/07/ | Office | Oncology | Yancy Clifford MD | | | 2019 | Visit | | [address] | | | | | | [place] | | | | | | [address] | | | | | | | | +--------+ + + + + | 01/07/ | Appointment | Infusion Therapy | Yancy Clifford MD | | | 2019 | | | [address] | | | | | | [place] | | | | | | [address] | | | | | | | | +--------+ + + + + documented as of this encounter Visit Diagnoses Not on filedocumented in this encounter"
--- OUTSIDE RECORDS SUMMARY | ~2019-12-09 | XMS | Encounter Summary ---
Demographics + + + | Address | [address] | | | [place] [address] | + + + | Home Phone | | + + + | Preferred Language | Unknown | + + + | Marital Status | | + + + | Anabaptist Affiliation | Unknown | + + + | Race | Unknown | + + + | Ethnic Group | Unknown | + + + Author + + + | Author | [facility] | | | and [place] | + + + | Organization | [facility] | | | [...] | | | | [place] [address] | | + + + + + | Emory Larios | ECON | Unknown | | + + + + + Care Team Providers + +------+ + | Care Peeler Operator Name | Role | Phone | [...] + + + + | 08/19/ | Telephone | [facility] | Yuli Serna | Triage | | 2019 | | SUPPORT SERVICES | Brittany, SALES AGENT [facility] [address] | | | | | [address] | [address] | | | | | [address] | [place] [address] | | | | | [place], [place] | [phone] | | | | | [address] | | | | | | [phone] | | | +--------+ + + + [...] [place] | | | | | | [address] | | | | | | | | +--------+ + + + + | 12/17/ | Office | Oncology | Yancy Clifford MD | | | 2019 | Visit | | [address] | | | | | | [place] | | | | | | [address] | | | | | | | | +--------+ + + + + | 12/17/ | Appointment | Infusion Therapy | Yancy Clifford MD | | | 2019 | | | [address] | | | | | | [place] | | | | | | [address] | | | | | | | | +--------+ + + + + | 01/07/ | Appointment | Infusion Therapy | Yancy Clifford MD | | | 2019 | | | [address] | | | | | | [place] | | | | | | [address] | | | | | | | | +--------+ + + + + | 01/07/ | Office | Oncology | Yancy Clifford MD | | | 2019 | Visit | | [address] | | | | | | [place] | | | | | | [address] | | | | | | | | +--------+ + + + + | 01/07/ | Appointment | Infusion Therapy | Yancy Clifford MD | | | 2019 | | | [address] | | | | | | [place] | | | | | | [address] | | | | | | | | +--------+ + + + + documented as of this encounter Visit Diagnoses Not on filedocumented in this encounter"
--- OUTSIDE RECORDS SUMMARY | ~2019-12-09 | XMS | Encounter Summary ---
Demographics + + + | Address | [address] | | | [place] [address] | + + + | Home Phone [...] | | | | [place] [address] | | + + + + + | Emory Larios | ECON | Unknown | | + + + + + Care Team Providers + +------+ + | Care Graining Operator Name | Role | Phone | + +------+ + | Shannan Deng | PCP | | + +------+ + Encounter Details +--------+ + + + + | Date | Type | Department | Care Team | Description | +--------+ + + + + | 07/05/ | Orders Only | [facility] | Lizzette Yumiko, | | | 2019 | | HEMATOLOGY AND | RN | | | | | ONCOLOGY [address] | [address] | | | | | | [place] | | | | | | [address] | | | | | | [phone] | | | +--------+ + + + [...] [place] | | | | | | [address] | | | | | | | | +--------+ + + + + | 12/17/ | Office | Oncology | Yancy Clifford MD | | | 2019 | Visit | | [address] | | | | | | [place] | | | | | | [address] | | | | | | | | +--------+ + + + + | 12/17/ | Appointment | Infusion Therapy | Yancy Clifford MD | | | 2019 | | | [address] | | | | | | [place] | | | | | | [address] | | | | | | | | +--------+ + + + + | 01/07/ | Appointment | Infusion Therapy | Yancy Clifford MD | | | 2019 | | | [address] | | | | | | [place] | | | | | | [address] | | | | | | | | +--------+ + + + + | 01/07/ | Office | Oncology | Yancy Clifford MD | | | 2019 | Visit | | [address] | | | | | | [place] | | | | | | [address] | | | | | | | | +--------+ + + + + | 01/07/ | Appointment | Infusion Therapy | Yancy Clifford MD | | | 2019 | | | [address] | | | | | | [place] | | | | | | [address] | | | | | | | | +--------+ + + + + documented as of this encounter Visit Diagnoses Not on filedocumented in this encounter"
--- OUTSIDE RECORDS SUMMARY | ~2019-12-09 | XMS | Encounter Summary ---
Demographics + + + | Address | [address] | | | [place] [address] | + + + | Home Phone | | + + + | Preferred Language | Unknown | + + + | Marital Status | | + + + | Jain Affiliation | Unknown | + + + | Race | Unknown | + + + | Ethnic Group | Unknown | + + + Author + + + | Author | [facility] | | | and [place] | + + + | Organization | [facility] | | | [...] | | | | | [place] [address] | | + + + + + | Emory Larios | ECON | Unknown | | + + + + + Care Team Providers + +------+ + | Care Research Quality Assurance Specialist Name | Role | Phone | + +------+ + PCP | Unavailable | + +------+ + Encounter Details +--------+ + + + + | Date | Type | Department | Care Team | Description | +--------+ + + + + | 06/11/ | Orders Only | [facility] | Yancy Clifford MD | | | 2019 | | [address] [facility] | [address] | | | | | [place] | [place] | | | | | [address] | [address] | | | | | [phone] | | | +--------+ + + + [...] [place] | | | | | | [address] | | | | | | | | +--------+ + + + + | 12/17/ | Office | Oncology | Yancy Clifford MD | | | 2019 | Visit | | [address] | | | | | | [place] | | | | | | [address] | | | | | | | | +--------+ + + + + | 12/17/ | Appointment | Infusion Therapy | Yancy Clifford MD | | | 2019 | | | [address] | | | | | | [place] | | | | | | [address] | | | | | | | | +--------+ + + + + | 01/07/ | Appointment | Infusion Therapy | Yancy Clifford MD | | | 2019 | | | [address] | | | | | | [place] | | | | | | [address] | | | | | | | | +--------+ + + + + | 01/07/ | Office | Oncology | Yancy Clifford MD | | | 2019 | Visit | | [address] | | | | | | [place] | | | | | | [address] | | | | | | | | +--------+ + + + + | 01/07/ | Appointment | Infusion Therapy | Yancy Clifford MD | | | 2019 | | | [address] | | | | | | [place] | | | | | | [address] | | | | | | | [...]
--- OUTSIDE RECORDS SUMMARY | ~2019-12-09 | XMS | Encounter Summary ---
Demographics + + + | Address | [address] | | | [place] [address] | + + + | Home Phone [...] | | | | [place] [address] | | + + + + + | Emory Larios | ECON | Unknown | | + + + + + Care Team Providers + +------+ + | Care Cab Starter Name | Role | Phone | + [...] | | | Ascites, | [place], | [place] [address] | | | | | malignant | [place] [address] | Phone: | | | | | Procedures | Phone: | [phone] | | | | | [place] | [phone] | Fax: | | | | | BEVACIZUMAB | Fax: | [phone] | | | | | INJECTION, | [phone] | | | | | | 10 MG [id number] | | | | | | | - [place] | | | | | | | [...] + + | 09/24/ | Hospital | [facility] | Yancy Clifford MD | Malignant neoplasm | | 2019 | Encounter | HEMATOLOGY AND | [address] | of left ovary (HCC) | | | | ONCOLOGY INFUSIONS | [place] | (Primary Dx); | | | | [address] | [address] | Ascites, malignant | | | | AVE [place], [place] | | | | | | [address] | | | | | | [phone] | | | +--------+ + + + [...] prevent mouth sores: Keep your mouth clean. [place] your teeth with a soft-bristle toothbrush after [...] baking soda to clean your mouth. M gr2jvriixvjsf salt wks2gvsenmkk of baking soda in 1 quart of [...] begins to ooze Burning when you urinate Qotpumy990.4F (38C) tiffani pineda directed by your healthcare provider Date Last Reviewed: 04/01/201619996048-2181 [employer]. [address] [place] [address]. All righ ts reserved. This information is [...] for any concerns or questions. Discharged to [facility] with copy of labs and [...] [place] | | | | | | [address] | | | | | | | | +--------+ + + + + | 12/17/ | Office | Oncology | Yancy Clifford MD | | | 2019 | Visit | | [address] | | | | | | [place] | | | | | | [address] | | | | | | | | +--------+ + + + + | 12/17/ | Appointment | Infusion Therapy | Yancy Clifford MD | | | 2019 | | | [address] | | | | | | [place] | | | | | | [address] | | | | | | | | +--------+ + + + + | 01/07/ | Appointment | Infusion Therapy | Yancy Clifford MD | | | 2019 | | | [address] | | | | | | [place] | | | | | | [address] | | | | | | | | +--------+ + + + + | 01/07/ | Office | Oncology | Yancy Clifford MD | | | 2019 | Visit | | [address] | | | | | | [place] | | | | | | [address] | | | | | | | | +--------+ + + + + | 01/07/ | Appointment | Infusion Therapy | Yancy Clifford MD | | | 2019 | | | [address] | | | | | | [place] | | | | | | [address] | | | | | | | [...]
--- OUTSIDE RECORDS SUMMARY | ~2019-12-09 | XMS | Encounter Summary ---
Demographics + + + | Address | [address] | | | [place] [address] | + + + | Home Phone | | + + + | Preferred Language | Unknown | + + + | Marital Status | | + + + | Episcopal Affiliation | Unknown | + + + | Race | Unknown | + + + | Ethnic Group | Unknown | + + + Author + + + | Author | [facility] | | | and [place] | + + + | Organization | [facility] | | | [...] | | | | [place] [address] | | + + + + + | Emory Larios | ECON | Unknown | | + + + + + Care Team Providers + +------+ + | Care Electroneurodiagnostic Technician Name | Role | Phone | [...] | | | Ascites, | [place], | [place] [address] | | | | | malignant | [place] [address] | Phone: | | | | | Procedures | Phone: | [phone] | | | | | [place] | [phone] | Fax: | | | | | BEVACIZUMAB | Fax: | [phone] | | | | | INJECTION, | [phone] | | | | | | 10 MG [id number] | | | | | | | - [place] | | | | | | | [...] + + | 11/05/ | Hospital | [facility] | Yancy Clifford MD | Malignant neoplasm | | 2019 | Encounter | HEMATOLOGY AND | [address] | of left ovary (HCC) | | | | ONCOLOGY INFUSIONS | [place] | (Primary Dx); | | | | [address] | [address] | Ascites, malignant | | | | AVE [place], [place] | | | | | | [address] | Jennyfer Carcamo, | | | | | [phone] | RN | | +--------+ + + [...] vein. It is given by a health resident care aid in a h ospital or clinic setting. Talk to your freight team associate regarding the use of this medicine in children. Special care may be needed. What side effects may I notice from receiving this medicine? Side effects that you should report to your doctor or health resident care aid as soon as p ossible: allergic reactions [...] attention (report to your doctor or health resident care aid if they continue or are bothersome): back pain changes in taste decreased appetite dry skin nausea tiredness What may interact with this medicine? Interactions are not expected. What if I miss a dose? It is important not to miss your dose. Call your doctor or health resident care aid if you are unable to keep an [...] should talk to your doctor or health resident care aid if you are concerned about your fertility. [...] for any concerns or questions. Discharged to [facility] with copy of labs and calendar for next appointment: 26 of November 2:15 PM: IVT LAB DRAW with CATRACHITO BOO SS LAB DRAW in [facility] INFUSION SUPPORT SERVICES 3:00 PM: Office Visit Extended Appointment starts at 3:15 PM with CIERRA Hartley in [facility] HEMATOLOGY AND ONCOLOGY 4:00 PM: Onc Infusion with JAZZY CHAIR 14 in [facility] HEMATOLOGY AND ONCOLOGY [...] [place] | | | | | | [address] | | | | | | | | +--------+ + + + + | 12/17/ | Office | Oncology | Yancy Clifford MD | | | 2019 | Visit | | [address] | | | | | | [place] | | | | | | [address] | | | | | | | | +--------+ + + + + | 12/17/ | Appointment | Infusion Therapy | Yancy Clifford MD | | | 2019 | | | [address] | | | | | | [place] | | | | | | [address] | | | | | | | | +--------+ + + + + | 01/07/ | Appointment | Infusion Therapy | Yancy Clifford MD | | | 2019 | | | [address] | | | | | | [place] | | | | | | [address] | | | | | | | | +--------+ + + + + | 01/07/ | Office | Oncology | Yancy Clifford MD | | | 2019 | Visit | | [address] | | | | | | [place] | | | | | | [address] | | | | | | | | +--------+ + + + + | 01/07/ | Appointment | Infusion Therapy | Yancy Clifford MD | | | 2019 | | | [address] | | | | | | [place] | | | | | | [address] | | | | | | | [...]
--- OUTSIDE RECORDS SUMMARY | ~2019-12-09 | XMS | Encounter Summary ---
Demographics + + + | Address | [address] | | | [place] [address] | + + + | Home Phone [...] | | | | [place] [address] | | + + + + + | Emory Larios | ECON | Unknown | | + + + + + Care Team Providers + +------+ + | Care Business Development Associate Name | Role | Phone | + [...] | | Ascites, | [place], | [place] [address] | | | | | malignant | [place] [address] | Phone: | | | | | Procedures | Phone: | [phone] | | | | | [place] | [phone] | Fax: | | | | | BEVACIZUMAB | Fax: | [phone] | | | | | INJECTION, | [phone] | | | | | | 10 MG [id number] | | | | | | | - [place] | | | | | | | [...] + + | 11/27/ | Hospital | [facility] | Yancy Clifford MD | Malignant neoplasm | | 2019 | Encounter | HEMATOLOGY AND | [address] | of left ovary (HCC) | | | | ONCOLOGY INFUSIONS | [place] | (Primary Dx); | | | | [address] | [address] | Ascites, malignant | | | | AVE [place], [place] | | | | | | [address] | Yumiko Crocker, | | | | | [phone] | RN | | +--------+ + + [...] vein. It is given by a health youth care specialist in a h ospital or clinic setting. Talk to your networks computer consultant regarding the use of this medicine in children. Special care may be needed. What side effects may I notice from receiving this medicine? Side effects that you should report to your doctor or health youth care specialist as soon as p ossible: [...] attention (report to your doctor or health youth care specialist if they continue or are bothersome): back pain changes in taste decreased appetite dry skin nausea tiredness What may interact with this medicine? Interactions are not expected. What if I miss a dose? It is important not to miss your dose. Call your doctor or health youth care specialist if you are unable to [...] should talk to your doctor or health youth care specialist if you are concerned about [...] with CATRACHITO BOO SS LAB DRAW in [facility] INFUSION SUPPORT SERVICES 2:15 PM: Office Visit Extended Appointment starts at 2:30 PM with Yancy Clifford MD in [facility] HEMATOLOGY AND ONCOLOGY 3:00 PM: Onc Infusion with JAZZY CHAIR 14 in [facility] HEMATOLOGY AND ONCOLOGY INFUSIONS documented in this [...] [place] | | | | | | [address] | | | | | | | | +--------+ + + + + | 12/17/ | Office | Oncology | Yancy Clifford MD | | | 2019 | Visit | | [address] | | | | | | [place] | | | | | | [address] | | | | | | | | +--------+ + + + + | 12/17/ | Appointment | Infusion Therapy | Yancy Clifford MD | | | 2019 | | | [address] | | | | | | [place] | | | | | | [address] | | | | | | | | +--------+ + + + + | 01/07/ | Appointment | Infusion Therapy | Yancy Clifford MD | | | 2019 | | | [address] | | | | | | [place] | | | | | | [address] | | | | | | | | +--------+ + + + + | 01/07/ | Office | Oncology | Yancy Clifford MD | | | 2019 | Visit | | [address] | | | | | | [place] | | | | | | [address] | | | | | | | | +--------+ + + + + | 01/07/ | Appointment | Infusion Therapy | Yancy Clifford MD | | | 2019 | | | [address] | | | | | | [place] | | | | | | [address] | | | | | | | [...]
--- OUTSIDE RECORDS SUMMARY | ~2019-12-09 | XMS | Encounter Summary ---
Demographics + + + | Address | [address] | | | [place] [address] | + + + | Home Phone [...] | | | | [place] [address] | | + + + + + | Emory Larios | ECON | Unknown | | + + + + + Care Team Providers + +------+ + | Care Auto Specialty Services Manager Name | Role | Phone | + +------+ + | Shannan Deng | PCP | | + +------+ + Encounter Details +--------+ + + + + | Date | Type | Department | Care Team | Description | +--------+ + + + + | 09/24/ | Hospital | [facility] | Yancy Clifford MD | 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) | | | | SERVICES [address] | [place] | (Primary Dx) | | | | [address] [place] | [id number] | | | | | [address] [place] | | | | | | [address] | Sushma Marquis | | | | | [phone] | Tiana RN | | +--------+ + [...] as of this encounter Progress Notes Sushma Maruqis RN - 09/24/2019 1:44 PM PDTPort accessed for lab draw. pc maintenance technician nique maintained throughout procedure. Saline locked, left accessed for treatment. Urine s ample obtained. do cumented in this encounter Plan of Treatment +--------+ + + + + | Date | Type | Specialty | Care Team | Description | +--------+ + + + + | 12/17/ | Appointment | Infusion Therapy | Yancy Clifford MD | | | 2019 | | | [address] | | | | | | [place] | | | | | | [address] | | | | | | | | +--------+ + + + + | 12/17/ | Office | Oncology | Yancy Clifford MD | | | 2019 | Visit | | [address] | | | | | | [place] | | | | | | [address] | | | | | | | | +--------+ + + + + | 12/17/ | Appointment | Infusion Therapy | Yancy Clifford MD | | | 2019 | | | [address] | | | | | | [place] | | | | | | [address] | | | | | | | | +--------+ + + + + | 01/07/ | Appointment | Infusion Therapy | Yancy Clifford MD | | | 2019 | | | [address] | | | | | | [place] | | | | | | [address] | | | | | | | | +--------+ + + + + | 01/07/ | Office | Oncology | Yancy Clifford MD | | | 2019 | Visit | | [address] | | | | | | [place] | | | | | | [address] | | | | | | | | +--------+ + + + + | 01/07/ | Appointment | Infusion Therapy | Yancy Clifford MD | | | 2020 | | | [address] | | | | | | [place] | | | | | | [address] | | | | | | | [...] [facility] | | | | Blvd;[place] [address] | | LABORATORY | | + + + + + + | K | 4.1Comment: Testing | 3.5 - 4.9 | REFERENCE | | | | performed at [facility];[address] | mmol/L | LAB | | | | [place] | | [facility] | | | | [address];[place] [address] | | LABORATORY | | + + + + + + | Cl | 104Comment: Testing | 99 - 109 mmol/L | REFERENCE | | | | performed at [facility] | | LAB | | | | [place] | | [facility] | | | | [address];[place] [address] | | LABORATORY | | + + + + + + | CO2 | 26Comment: Testing | 23 - 32 mmol/L | REFERENCE | | | | Performed at [facility], [address] | | LAB | | | | [facility] | | [facility] | | | | [address], [place] | | LABORATORY | | | | [address] | | | | + + + + + + | Anion Gap | 10Comment: Testing | 5 - 20 mmol/L | REFERENCE | | | | performed at [facility];[address] | | LAB | | | | [facility] | | [facility] | | | | [address];[place] [address] | | LABORATORY | | + + [...] [place] | | | | | | [address] | | | | + + + + + + + + | Specimen | + + | Blood | + + + + + + + | Performing | Address | City/State/Zipcode | Phone Number | | Organization | | | | + + + + + | REFERENCE LAB | [address] [place] [address] | [place] [address] | [phone] | | [facility] | Blvd[address] | | | | LABORATORY | | | | + + + + + | REFERENCE LAB | [address] [place] [address] | [place] [address] | | | [facility] | Blvd. | [...] | | LABORATORY | | | | [address] | | | | + + + + + + + + | Specimen | + + | Blood | + + + + + + + | Performing | Address | City/State/Zipcode | Phone Number | | Organization | | | | + + + + + | REFERENCE LAB | [address] | [place] [address] | [phone] | | [facility] | Blvd. | | | | LABORATORY | | | | + + + + + | REFERENCE LAB | [address] | [place] [address] | | | [facility] | Blvd. | [...]
--- OUTSIDE RECORDS SUMMARY | ~2019-12-09 | XMS | Encounter Summary ---
Demographics + + + | Address | [address] | | | [place] [address] | + + + | Home Phone | | + + + | Preferred Language | Unknown | + + + | Marital Status | | + + + | Congregational Affiliation | Unknown | + + + [...] | | | | [place] [address] | | + + + + + | Emory Larios | ECON | Unknown | | + + + + + Care Team Providers + +------+ + | Care Firearms Model Maker Name | Role | Phone | + +------+ + | Shannan Deng | PCP | | + +------+ + Encounter Details +--------+ + + + + | Date | Type | Department | Care Team | Description | +--------+ + + + + | 04/16/ | Orders Only | [facility] | Conversion | | | 2019 | | CONVERSION [address] | Transaction, | | | | | [address] | Provider Unknown | | | | | [place], [place] | [phone] | | | | | [address] | | | | | | [phone] | | | +--------+ + + + [...] [place] | | | | | | [address] | | | | | | | | +--------+ + + + + | 12/17/ | Office | Oncology | Yancy Clifford MD | | | 2019 | Visit | | [address] | | | | | | [place] | | | | | | [address] | | | | | | | | +--------+ + + + + | 12/17/ | Appointment | Infusion Therapy | Yancy Clifford MD | | | 2019 | | | [address] | | | | | | [place] | | | | | | [address] | | | | | | | | +--------+ + + + + | 01/07/ | Appointment | Infusion Therapy | Yancy Clifford MD | | | 2019 | | | [address] | | | | | | [place] | | | | | | [address] | | | | | | | | +--------+ + + + + | 01/07/ | Office | Oncology | Yancy Clifford MD | | | 2019 | Visit | | [address] | | | | | | [place] | | | | | | [address] | | | | | | | | +--------+ + + + + | 01/07/ | Appointment | Infusion Therapy | Yancy Clifford MD | | | 2019 | | | [address] | | | | | | [place] | | | | | | [address] | | | | | | | | +--------+ + + + + documented as of this encounter Visit Diagnoses Not on filedocumented in this encounter"
--- OUTSIDE RECORDS SUMMARY | ~2019-12-09 | XMS | Encounter Summary ---
Demographics + + + | Address | [address] [address] | | | [place] [address] | + + + | Home Phone [...] | | | | [place] [address] | | + + + + + | Emory Larios | ECON | Unknown | | + + + + + Care Team Providers + +------+ + | Care Cardiovascular Tech Name | Role | Phone | + +------+ + | Shannan Deng | PCP | | + +------+ + Encounter Details +--------+ + + + + | Date | Type | Department | Care Team | Description | +--------+ + + + + | 10/15/ | Hospital | [facility] | Yancy Clifford MD | 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) | | | | SERVICES [address] | [place] | (Primary Dx); | | | | [address] [place] | [id number] | 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 Sent to [facility] for peripheral draw 19 9:06 AM [...] [place] | | | | | | [address] | | | | | | | | +--------+ + + + + | 12/17/ | Office | Oncology | Yancy Clifford MD | | | 2019 | Visit | | [address] | | | | | | [place] | | | | | | [address] | | | | | | | | +--------+ + + + + | 12/17/ | Appointment | Infusion Therapy | Yancy Clifford MD | | | 2019 | | | [address] | | | | | | [place] | | | | | | [address] | | | | | | | | +--------+ + + + + | 01/07/ | Appointment | Infusion Therapy | Yancy Clifford MD | | | 2019 | | | [address] | | | | | | [place] | | | | | | [address] | | | | | | | | +--------+ + + + + | 01/07/ | Office | Oncology | Yancy Clifford MD | | | 2019 | Visit | | [address] | | | | | | [place] | | | | | | [address] | | | | | | | | +--------+ + + + + | 01/07/ | Appointment | Infusion Therapy | Yancy Clifford MD | | | 2019 | | | [address] | | | | | | [place] | | | | | | [address] | | | | | | | [...]
--- OUTSIDE RECORDS SUMMARY | ~2019-12-09 | XMS | Clinical Summary ---
Demographics + + + | Address | [address] | | | [place] [address] | + + + | Home Phone | | + + + | Preferred Language | Unknown | + + + | Marital Status | Legally | + + + | Hoahaoism Affiliation | Unknown | + + + | Race | Unknown | + + + | Ethnic Group | Unknown | + + + Author + + + | Author | [facility] (Historical as of | | | 07-18-19) | + + + | Organization | [facility] (Historical as of | | | 07-18-19) [...] | | | | [place] [address] | | + + + + + | Emory Larios | EBENEZER | Unknown | | + + + + + Care Team Providers + +------+ + | Care Hog Cooler Name | Role | Phone | + [...] +------+-------+ + | MEDICARE | MEDICA | [id number] | | | [address] | | | RE | | | | [place] [address] | | | IP-OP | | | | | + +--------+ +------+-------+ + | MEDICAID | MEDICA | [id number] | | | [address] | | | ID | | | | [place] | | | [place] | | | | [address] | + +--------+ +------+-------+ + + +--------+ +--------+ + + | Guarantor Name | Accoun | Relation to | Date | Phone | Billing Address | | | t Type | Patient | of | | | | | | | | | | + +--------+ +--------+ + + | ELSY BAXTER | Person | Self [birth year] | Home: | [address] | | | al/Fam | | 1959 | [phone] | [address] [place], | | | ever | | | [address] | [place] [address] | + +--------+ +--------+ + +
--- OUTSIDE RECORDS SUMMARY | ~2019-12-09 | XMS | Encounter Summary ---
Demographics + + + | Address | [address] | | | [place] [address] | + + + | Home Phone | | + + + | Preferred Language | Unknown | + + + | Marital Status | | + + + | Lutheran Affiliation | Unknown | + + + [...] | | | | [place] [address] | | + + + + + | Emory Larios | ECON | Unknown | | + + + + + Care Team Providers + +------+ + | Care Senior Informatica Developer Name | Role | Phone | [...] + | 08/13/ | Office | [facility] | Yancy Clifford MD | Malignant neoplasm | | 2019 | Visit | HEMATOLOGY AND | [address] | of left ovary (HCC) | | | | ONCOLOGY [address] | [place] | (Primary Dx) | | | | [address] | [address] | | | | | [place] | | | | | | [address] | Jennyfer Calvert | | | | | [phone] | CIERRA Lou [address] | | | | | [address] | | | | | | [place] [address] | | | | | | [phone] | | | | | | | [...] in this encounter Progress Notes Jennyfer Calvert, STREET FLUSHER DRIVER - 08/13/2019 9:45 AM PDTFormatting of this note might be differ ent from the original. [facility] Hematology & Oncology Oncology Progress Note [...] 05/2017 Genetic Testing Negative genetic testing through [employer]. 07/2017 Surgery S/p debulking surgery. Final pathology [...] ANISO NORMAL PLT MORPH Testing Performed at [facility], [address] [facility], [address], [place] [address] Na 08/13/2019 139 135 - 145 mmol/L [...] MDRD IDMS traceable equation. Testing Performed at [facility], [address], [address], [place] [address] PRO/CREA RATIO,URINE 08/13/2019 0.293 Final Testing performed at [facility];[address] [facility];[place] [address] Color, UA 08/13/2019 YELLOW Final Clarity, UA 08/13/2019 CLEAR Final Specific [place], Urine 08/13/2019 1.025 1.002 - 1.030 Final [...] NEGATIVE NEG mg/dL Final Testing Performed at [facility], [address], [address], [place] [address] Creatinine, random urine 08/13/2019 167.0 mg/dL Final Comment: NO NORMAL RANGE ESTABLISHED Testing performed at [facility];[address] [facility];[place] [address] Protein, Urine 08/13/2019 49 mg/dL Final Comment: NO NORMAL RANGE ESTABLISHED Testing performed at [facility];[address] [facility];[place] [address] WBC UA 08/13/2019 0-2 0 - 5 /hpf Final RBC UA 08/13/2019 0-2 0 - 5 /hpf Final SQUAMOUS EPITHELIAL UA 08/13/2019 16-25 /lpf Final BACTERIA UA 08/13/2019 TRACE* NONE Final MUCUS UA 08/13/2019 4+ Final CASTS 08/13/2019 1-5 /lpf Final Comment: HYALINE Testing Performed at [facility], [address], [address], [place] [address] Ct Chest Abdomen Pelvis W Contrast Result [...] and coordination of care. CIERRA Hartley, MIKE [facility] Hematology Oncology 08/13/2019 Portions of this [...] [place] | | | | | | [address] | | | | | | | | +--------+ + + + + | 12/17/ | Office | Oncology | Yancy Clifford MD | | | 2019 | Visit | | [address] | | | | | | [place] | | | | | | [address] | | | | | | | | +--------+ + + + + | 12/17/ | Appointment | Infusion Therapy | Yancy Clifford MD | | | 2019 | | | [address] | | | | | | [place] | | | | | | [address] | | | | | | | | +--------+ + + + + | 01/07/ | Appointment | Infusion Therapy | Yancy Clifford MD | | | 2019 | | | [address] | | | | | | [place] | | | | | | [address] | | | | | | | | +--------+ + + + + | 01/07/ | Office | Oncology | Yancy Clifford MD | | | 2019 | Visit | | [address] | | | | | | [place] | | | | | | [address] | | | | | | | | +--------+ + + + + | 01/07/ | Appointment | Infusion Therapy | Yancy Clifford MD | | | 2019 | | | [address] | | | | | | [place] | | | | | | [address] | | | | | | | [...] | | | | | TCL;[address] [facility] | | | | | | [facility];[place] [address] | | | | | | | | | | + + + + + + + + | Specimen | + + | Blood | + + + + + + + | Performing | Address | City/State/Zipcode | Phone Number | | Organization | | | | + + + + + | REFERENCE LAB | [address] [place] [address] | [place] [address] | [phone] | | [facility] | Blvd. | | | | LABORATORY | | | | + + + + + | REFERENCE LAB | [address] [place] [address] | [place] [address] | | | [facility] | Blvd. 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
--- OUTSIDE RECORDS SUMMARY | ~2019-12-09 | XMS | Encounter Summary ---
Demographics + + + | Address | [address] | | | [place] [address] | + + + | Home Phone [...] | | | | [place] [address] | | + + + + + | Emory Larios | ECON | Unknown | | + + + + + Care Team Providers + +------+ + | Care Nuclear Medicine Tech Name | Role | Phone | [...] + + | 11/05/ | Telephone | [facility] | Yancy Clifford MD | LABS (add on) | | 2019 | | HEMATOLOGY AND | [address] | | | | | ONCOLOGY [address] | [place] | | | | | [address] | [address] | | | | | [place] | | | | | | [address] | | | | | | [phone] | | | +--------+ + + + [...] [place] | | | | | | [address] | | | | | | | | +--------+ + + + + | 12/17/ | Office | Oncology | Yancy Clifford MD | | | 2019 | Visit | | [address] | | | | | | [place] | | | | | | [address] | | | | | | | | +--------+ + + + + | 12/17/ | Appointment | Infusion Therapy | Yancy Clifford MD | | | 2019 | | | [address] | | | | | | [place] | | | | | | [address] | | | | | | | | +--------+ + + + + | 01/07/ | Appointment | Infusion Therapy | Yancy Clifford MD | | | 2019 | | | [address] | | | | | | [place] | | | | | | [address] | | | | | | | | +--------+ + + + + | 01/07/ | Office | Oncology | Yancy Clifford MD | | | 2019 | Visit | | [address] | | | | | | [place] | | | | | | [address] | | | | | | | | +--------+ + + + + | 01/07/ | Appointment | Infusion Therapy | Yancy Clifford MD | | | 2019 | | | [address] | | | | | | [place] | | | | | | [address] | | | | | | | | +--------+ + + + + documented as of this encounter Visit Diagnoses Not on filedocumented in this encounter"
--- OUTSIDE RECORDS SUMMARY | ~2019-12-09 | XMS | Encounter Summary ---
Demographics + + + | Address | [address] | | | [place] [address] | + + + | Home Phone | | + + + | Preferred Language | Unknown | + + + | Marital Status | | + + + | Bahai Affiliation | Unknown | + + + | Race | Unknown | + + + | Ethnic Group | Unknown | + + + Author + + + | Author | [facility] | | | and [place] | + + + | Organization | [facility] | [...] | | | | [place] [address] | | + + + + + | Emory Larios | ECON | Unknown | | + + + + + Care Team Providers + +------+ + | Care Hollow Handle Knife Assembler Name | Role | Phone | [...] Provider Unknown | | | | | [place], [place] | [phone] | | | | | [address] | | | | | | [phone] | | | +--------+ + + + [...] [place] | | | | | | [address] | | | | | | | | +--------+ + + + + | 12/17/ | Office | Oncology | Yancy Clifford MD | | | 2019 | Visit | | [address] | | | | | | [place] | | | | | | [address] | | | | | | | | +--------+ + + + + | 12/17/ | Appointment | Infusion Therapy | Yancy Clifford MD | | | 2019 | | | [address] | | | | | | [place] | | | | | | [address] | | | | | | | | +--------+ + + + + | 01/07/ | Appointment | Infusion Therapy | Yancy Clifford MD | | | 2019 | | | [address] | | | | | | [place] | | | | | | [address] | | | | | | | | +--------+ + + + + | 01/07/ | Office | Oncology | Yancy Clifford MD | | | 2019 | Visit | | [address] | | | | | | [place] | | | | | | [address] | | | | | | | | +--------+ + + + + | 01/07/ | Appointment | Infusion Therapy | Yancy Clifford MD | | | 2019 | | | [address] | | | | | | [place] | | | | | | [address] | | | | | | | | +--------+ + + + + documented as of this encounter Visit Diagnoses Not on filedocumented in this encounter"
--- OUTSIDE RECORDS SUMMARY | ~2019-12-09 | XMS | Encounter Summary ---
Demographics + + + | Address | [address] | | | [place] [address] | + + + | Home Phone | | + + + | Preferred Language | Unknown | + + + | Marital Status | | + + + | Quaker Affiliation | Unknown | + + + | Race | Unknown | + + + | Ethnic Group | Unknown | + + + Author + + + | Author | [facility] | | | and [place] | + + + | Organization | [facility] | | | [...] | | | | [place] [address] | | + + + + + | Emory Larios | ECON | Unknown | | + + + + + Care Team Providers + +------+ + | Care Insurance Sales Assistant Name | Role | Phone | [...] + + | 11/05/ | Telephone | [facility] | Yancy Clifford MD | LABS (add on) | | 2019 | | HEMATOLOGY AND | [address] | | | | | ONCOLOGY [address] | [place] | | | | | [address] | [address] | | | | | [place] | | | | | | [address] | | | | | | [phone] | | | +--------+ + + + [...] [place] | | | | | | [address] | | | | | | | | +--------+ + + + + | 12/17/ | Office | Oncology | Yancy Clifford MD | | | 2019 | Visit | | [address] | | | | | | [place] | | | | | | [address] | | | | | | | | +--------+ + + + + | 12/17/ | Appointment | Infusion Therapy | Yancy Clifford MD | | | 2019 | | | [address] | | | | | | [place] | | | | | | [address] | | | | | | | | +--------+ + + + + | 01/07/ | Appointment | Infusion Therapy | Yancy Clifford MD | | | 2019 | | | [address] | | | | | | [place] | | | | | | [address] | | | | | | | | +--------+ + + + + | 01/07/ | Office | Oncology | Yancy Clifford MD | | | 2019 | Visit | | [address] | | | | | | [place] | | | | | | [address] | | | | | | | | +--------+ + + + + | 01/07/ | Appointment | Infusion Therapy | Yancy Clifford MD | | | 2019 | | | [address] | | | | | | [place] | | | | | | [address] | | | | | | | | +--------+ + + + + documented as of this encounter Visit Diagnoses Not on filedocumented in this encounter"
--- OUTSIDE RECORDS SUMMARY | ~2019-12-09 | XMS | Encounter Summary ---
Demographics + + + | Address | [address] | | | [place] [address] | + + + | Home Phone [...] | | | | [place] [address] | | + + + + + | Emory Larios | ECON | Unknown | | + + + + + Care Team Providers + +------+ + | Care Amusement Ride Inspector Name | Role | Phone | [...] + + | 09/24/ | Office | 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 07/2017 Surgery S/p debulking surgery. Final pathology [...] - 0.10 K/uL Final Testing Performed at [facility], [address], [address], [place] [address] Na 09/24/2019 136 135 - 145 mmol/L Final Testing performed at [facility];[address];[place] [address] K 09/24/2019 4.1 3.5 - 4.9 mmol/L Final Testing performed at [facility];[address] [facility];[place] [address] Cl 09/24/2019 104 99 - 109 mmol/L Final Testing performed at [facility];[address] [facility];[place] [address] CO2 09/24/2019 26 23 - 32 mmol/L Final Testing Performed at [facility], [address], [address], [place] [address] Anion Gap 09/24/2019 10 5 - 20 mmol/L Final Testing performed at [facility];[address] [facility];[place] [address] Glucose 09/24/2019 182* 65 - 99 mg/dL [...] MDRD IDMS traceable equation. Testing Performed at [facility], [address], [address], [place] [address] Imaging: Assessment: ECO 59 yo lady with [...] examining the patient, review of medical records, correctional counselor ing, coordination of care, and CPOE. [...] | | | 2019 | | | [address] | | | | | | [place] | | | | | | [address] | | | | | | | | +--------+ + + + + | 12/17/ | Office | Oncology | Yancy Clifford MD | | | 2019 | Visit | | [address] | | | | | | [place] | | | | | | [address] | | | | | | | | +--------+ + + + + | 12/17/ | Appointment | Infusion Therapy | Yancy Clifford MD | | | 2019 | | | [address] | | | | | | [place] | | | | | | [address] | | | | | | | | +--------+ + + + + | 01/07/ | Appointment | Infusion Therapy | Yancy Clifford MD | | | 2019 | | | [address] | | | | | | [place] | | | | | | [address] | | | | | | | | +--------+ + + + + | 01/07/ | Office | Oncology | Yancy Clifford MD | | | 2019 | Visit | | [address] | | | | | | [place] | | | | | | [address] | | | | | | | | +--------+ + + + + | 01/07/ | Appointment | Infusion Therapy | Yancy Clifford MD | | | 2020 | | | [address] | | | | | | [place] | | | | | | [address] | | | | | | | [...] | | | | | TCL;[address] [facility] | | | | | | [facility];[place] [address] | | | | | | | | | | + + + + + + + + | Specimen | + + | Blood | + + + + + + + | Performing | Address | City/State/Zipcode | Phone Number | | Organization | | | | + + + + + | REFERENCE LAB | [address] [place] [address] | [place] [address] | [phone] | | [facility] | Blvd. | | | | LABORATORY | | | | + + + + + | REFERENCE LAB | [address] [facility] | [place] [address] | | | [facility] | Blvd. | [...] | | | | | [place] [address] | | | | | | | | | | + + + + + + + + | Specimen | + + | Blood | + + + + + + + | Performing | Address | City/State/Zipcode | Phone Number | | Organization | | | | + + + + + | REFERENCE LAB | [address] [place] [address] | [place] [address] | [phone] | | [facility] | Blvd. | | | | LABORATORY | | | | + + + + + | REFERENCE LAB | [address] [place] [address] | [place] [address] | | | [facility] | Blvd. | [...] LAB | | | | performed at [facility];[address] | | [facility] | | | | [place] | | LABORATORY | | | | Blvd;[place] [address] | | | | | | | | | | + + + + + + + + | Specimen | + + | | + + + + + + + | Performing | Address | City/State/Zipcode | Phone Number | | Organization | | | | + + + + + | REFERENCE LAB | [address] [place] [address] | [place] [address] | [phone] | | [facility] | Blvd. | | | | LABORATORY | | | | + + + + + | REFERENCE LAB | [address] [place] [address] | [place] [address] | | | [facility] | Blvd. | [...] LAB | | | | performed at [facility];[address] | | [facility] | | | | [facility] | | LABORATORY | | | | Blvd;[place] [address] | | | | | | | | | | + + + + + + + + | Specimen | + + | | + + + + + + + | Performing | Address | City/State/Zipcode | Phone Number | | Organization | | | | + + + + + | REFERENCE LAB | [address] [place] [address] | [place] [address] | [phone] | | [facility] | Blvd. | | | | LABORATORY | | | | + + + + + | REFERENCE LAB | [address] [place] [address] | [place] [address] | | | [facility] | Blvd. | [...] | | | urine | performed at [facility];[address] | | [facility] | | | | [place] | | LABORATORY | | | | Blvd;[place] [address] | | | | | | [...] | [address] [facility] | [place] [address] | [phone] | | [facility] | Blvd. | | | | LABORATORY | | | | + + + + + | REFERENCE LAB | [address] | [place] [address] | | | [facility] | Blvd. | [...] - 1.030 | REFERENCE | | | [place], | | | LAB | | | [...] + + + | REFERENCE LAB | [address] [place] [address] | [place] [address] | [phone] | | [facility] | Blvd. | | | | LABORATORY | | | | + + + + + | REFERENCE LAB | [address] [place] [address] | [place] [address] | | | [facility] | Blvd. | [...] | | | RATIO,URINE | performed at [facility];[address] | | LAB | | | | [place] | | [facility] | | | | Blvd;[place] [address] | | LABORATORY | | + + + + + + + + | Specimen | + + | | + + + + + + + | Performing | Address | City/State/Zipcode | Phone Number | | Organization | | | | + + + + + | REFERENCE LAB | [address] [facility] | [place] [address] | [phone] | | [facility] | Blvd. | | | | LABORATORY | | | | + + + + + | REFERENCE LAB | [address] | [place] [address] | | | [facility] | Blvd. | [...]
--- OUTSIDE RECORDS SUMMARY | ~2019-12-09 | XMS | Encounter Summary ---
Demographics + + + | Address | [address] | | | [place] [address] | + + + | Home Phone | | + + + | Preferred Language | Unknown | + + + | Marital Status | | + + + | Nondenominational Affiliation | Unknown | + + + | Race | Unknown | + + + | Ethnic Group | Unknown | + + + Author + + + | Author | [facility] | | | and [place] | + + + | Organization | [facility] | | | and [...] | | | | [place] [address] | | + + + + + | Emory Larios | ECON | Unknown | | + + + + + Care Team Providers + +------+ + | Care Grinding Operator Name | Role | Phone | [...] + + | 07/23/ | Office | [facility] | Yancy Clifford MD | Malignant neoplasm | | 2019 | Visit | HEMATOLOGY AND | [address] | of left ovary (HCC) | | | | ONCOLOGY [address] | [place] | (Primary Dx); | | [address] | [id number] | Chemotherapy | | | | [place] | | management, | | | | [address] | | encounter for | | | | [phone] | | | +--------+---------+ + + + [...] 05/2017 Genetic Testing Negative genetic testing through [employer]. 07/2017 Surgery S/p debulking surgery. Final pathology [...] Estimate 07/23/2019 ADEQUATE Final Testing Performed at [facility], [address], [address], [place] [address] Na 07/23/2019 140 135 - 145 mmol/L [...] IDMS traceable equation. Testing Performed at [facility], [address], [address], [place] [address] Color, UA 07/23/2019 YELLOW Final Clarity, UA 07/23/2019 CLEAR Final Specific [place], Urine 07/23/2019 1.025 1.002 - 1.030 Final [...] NEG mg/dL Final Testing Performed at [facility], [address], [address], [place] [address] WBC UA 07/23/2019 0-2 0 - 5 /hpf Final RBC UA 07/23/2019 NONE SEEN 0 - 5 /hpf Final SQUAMOUS EPITHELIAL UA 07/23/2019 6-10 /lpf Final BACTERIA UA 07/23/2019 NONE SEEN NONE Final MUCUS UA 07/23/2019 1+ Final Testing Performed at [facility], [address], [address], [place] [address] PRO/CREA RATIO,URINE 07/23/2019 0.320 Final Testing performed at [facility];[address];[place] [address] Creatinine, random urine 07/23/2019 172.0 mg/dL Final Comment: NO NORMAL RANGE ESTABLISHED Testing performed at [facility];[address];[place] [address] Protein, Urine 07/23/2019 55 mg/dL Final Comment: NO NORMAL RANGE ESTABLISHED Testing performed at [facility];[address];[place] [address] Imaging: Assessment: ECO 59 yo lady with [...] examining the patient, review of medical records, vocational counselor ing, coordination of care, and CPOE. [...] [place] | | | | | | [address] | | | | | | | | +--------+ + + + + | 12/17/ | Office | Oncology | Yancy Clifford MD | | | 2019 | Visit | | [address] | | | | | | [place] | | | | | | [address] | | | | | | | | +--------+ + + + + | 12/17/ | Appointment | Infusion Therapy | Yancy Clifford MD | | | 2019 | | | [address] | | | | | | [place] | | | | | | [address] | | | | | | | | +--------+ + + + + | 01/07/ | Appointment | Infusion Therapy | Yancy Clifford MD | | | 2019 | | | [address] | | | | | | [place] | | | | | | [address] | | | | | | | | +--------+ + + + + | 01/07/ | Office | Oncology | Yancy Clifford MD | | | 2019 | Visit | | [address] | | | | | | [place] | | | | | | [address] | | | | | | | | +--------+ + + + + | 01/07/ | Appointment | Infusion Therapy | Yancy Clifford MD | | | 2019 | | | [address] | | | | | | [place] | | | | | | [address] | | | | | | | [...] LABORATORY | | | | Blvd;[place] [address] | | | | | | | | | | + + + + + + + + | Specimen | + + | | + + + + + + + | Performing | Address | City/State/Zipcode | Phone Number | | Organization | | | | + + + + + | REFERENCE LAB | [address] | [place] [address] | [phone] | | [facility] | Blvd. | | | | LABORATORY | | | | + + + + + | REFERENCE LAB | [address] | [place] [address] | | | [facility] | Blvd. | [...] | | LABORATORY | | | | Blvd;[place] [address] | | | | | | | | | | + + + + + + + + | Specimen | + + | | + + + + + + + | Performing | Address | City/State/Zipcode | Phone Number | | Organization | | | | + + + + + | REFERENCE LAB | [address] | [place] [address] | [phone] | | [facility] | Blvd. | | | | LABORATORY | | | | + + + + + | REFERENCE LAB | [address] | [place] [address] | | | [facility] | Blvd. | [...] | | LAB | | | [facility] | | [facility] | | | | Blvd;[place] [address] | | LABORATORY | | + + + + + + + + | Specimen | + + | | + + + + + + + | Performing | Address | City/State/Zipcode | Phone Number | | Organization | | | | + + + + + | REFERENCE LAB | [address] [place] [address] | [place] [address] | [phone] | | [facility] | Blvd. | | | | LABORATORY | | | | + + + + + | REFERENCE LAB | [address] [place] [address] | [place] [address] | | | [facility] | Blvd. | [...] | | LABORATORY | | | | [address] | | | | + + + + + + + + | Specimen | + + | | + + + + + + + | Performing | Address | City/State/Zipcode | Phone Number | | Organization | | | | + + + + + | REFERENCE LAB | [address] | [place] [address] | [phone] | | [facility] | Blvd. | | | | LABORATORY | | | | + + + + + | REFERENCE LAB | [address] | [place] [address] | | | [facility] | Blvd. | [...] - 1.030 | REFERENCE | | | [place], | | | LAB | | | [...] | | LABORATORY | | | | [address] | | | | + + + + + + + + | Specimen | + + | | + + + + + + + | Performing | Address | City/State/Zipcode | Phone Number | | Organization | | | | + + + + + | REFERENCE LAB | [address] | [place] [address] | [phone] | | [facility] | Blvd. | | | | LABORATORY | | | | + + + + + | REFERENCE LAB | [address] [facility] | [place] [address] | | | [facility] | Blvd. | [...] | | | | | Performed at [facility], [address] | | | | | | [address] | | | | | | [address], [place], [place] | | | | | | [address] | | | | + + + + + + + + | Specimen | + + | | + + + + + + + | Performing | Address | City/State/Zipcode | Phone Number | | Organization | | | | + + + + + | REFERENCE LAB | [address] [place] [address] | [place] [address] | [phone] | | [facility] | Blvd. | | | | LABORATORY | | | | + + + + + | REFERENCE LAB | [address] [place] [address] | [place] [address] | | | [facility] | Blvd. | [...] | | LABORATORY | | | | [address] | | | | + + + + + + + + | Specimen | + + | | + + + + + + + | Performing | Address | City/State/Zipcode | Phone Number | | Organization | | | | + + + + + | REFERENCE LAB | [address] [place] [address] | [place] [address] | [phone] | | [facility] | Blvd. | | | | LABORATORY | | | | + + + + + | REFERENCE LAB | [address] [place] [address] | [place] [address] | | | [facility] | Blvd. | [...]
--- OUTSIDE RECORDS SUMMARY | ~2019-12-09 | XMS | Encounter Summary ---
Demographics + + + | Address | [address] | | | [place] [address] | + + + | Home Phone | | + + + | Preferred Language | Unknown | + + + | Marital Status | | + + + | Evangelical Affiliation | Unknown | + + + | Race | Unknown | + + + | Ethnic Group | Unknown | + + + Author + + + | Author | [facility] | | | and [place] | + + + | Organization | [facility] | | [...] | | | | [place] [address] | | + + + + + | Emory Larios | ECON | Unknown | | + + + + + Care Team Providers + +------+ + | Care City Carrier Assistant Name | Role | Phone | [...] Provider Unknown | | | | | [place], [place] | [phone] | | | | | [address] | | | | | | [phone] | | | +--------+ + + + [...] [place] | | | | | | [address] | | | | | | | | +--------+ + + + + | 12/17/ | Office | Oncology | Yancy Clifford MD | | | 2019 | Visit | | [address] | | | | | | [place] | | | | | | [address] | | | | | | | | +--------+ + + + + | 12/17/ | Appointment | Infusion Therapy | Yancy Clifford MD | | | 2019 | | | [address] | | | | | | [place] | | | | | | [address] | | | | | | | | +--------+ + + + + | 01/07/ | Appointment | Infusion Therapy | Yancy Clifford MD | | | 2019 | | | [address] | | | | | | [place] | | | | | | [address] | | | | | | | | +--------+ + + + + | 01/07/ | Office | Oncology | Yancy Clifford MD | | | 2019 | Visit | | [address] | | | | | | [place] | | | | | | [address] | | | | | | | | +--------+ + + + + | 01/07/ | Appointment | Infusion Therapy | Yancy Clifford MD | | | 2019 | | | [address] | | | | | | [place] | | | | | | [address] | | | | | | | | +--------+ + + + + documented as of this encounter Visit Diagnoses Not on filedocumented in this encounter"
--- OUTSIDE RECORDS SUMMARY | ~2019-12-09 | XMS | Encounter Summary ---
Demographics + + + | Address | [address] | | | [place] [address] | + + + | Home Phone [...] | | | | [place] [address] | | + + + + + | Emory Larios | ECON | Unknown | | + + + + + Care Team Providers + +------+ + | Care Quality Control Engineer Name | Role | Phone | + +------+ + | Shannan Deng | PCP | | + +------+ + Encounter Details +--------+ + + + + | Date | Type | Department | Care Team | Description | +--------+ + + + + | 07/16/ | Orders Only | [facility] | Sushma Marquis | Malignant neoplasm | | 2019 | | INFUSION SUPPORT | A, RN | of left ovary (HCC) | | | | SERVICES [address] | | (Primary Dx) | | | | [address] | | | | | | [address] [place] | | | | | | [address] | | | | | | [phone] | | | +--------+ + + + [...] [place] | | | | | | [address] | | | | | | | | +--------+ + + + + | 12/17/ | Office | Oncology | Yancy Clifford MD | | | 2019 | Visit | | [address] | | | | | | [place] | | | | | | [address] | | | | | | | | +--------+ + + + + | 12/17/ | Appointment | Infusion Therapy | Yancy Clifford MD | | | 2019 | | | [address] | | | | | | [place] | | | | | | [address] | | | | | | | | +--------+ + + + + | 01/07/ | Appointment | Infusion Therapy | Yancy Clifford MD | | | 2019 | | | [address] | | | | | | [place] | | | | | | [address] | | | | | | | | +--------+ + + + + | 01/07/ | Office | Oncology | Yancy Clifford MD | | | 2019 | Visit | | [address] | | | | | | [place] | | | | | | [address] | | | | | | | | +--------+ + + + + | 01/07/ | Appointment | Infusion Therapy | Ynacy Clifford MD | | | 2020 | | | [address] | | | | | | [place] | | | | | | [address] | | | | | | | | +--------+ + + + + documented as of this encounter Visit Diagnoses + + | Diagnosis | + + | 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
--- OUTSIDE RECORDS SUMMARY | ~2019-12-09 | XMS | Encounter Summary ---
Demographics + + + | Address | [address] | | | [place] [address] | + + + | Home Phone [...] | | | | [place] [address] | | + + + + + | Emory Larios | ECON | Unknown | | + + + + + Care Team Providers + +------+ + | Care Piggyback Clerk Name | Role | Phone | [...] + + | 08/19/ | Telephone | [facility] | Yuli Serna | Triage | | 2019 | | SUPPORT SERVICES | Brittany, CIRCULATION MANAGER [address] | | | | | [address] | [address] | | | | | [address] | [place] [address] | | | | | [place], [place] | [phone] | | | | | [address] | | | | | | [phone] | | | +--------+ + + + [...] [place] | | | | | | [address] | | | | | | | | +--------+ + + + + | 12/17/ | Office | Oncology | Yancy Clifford MD | | | 2019 | Visit | | [address] | | | | | | [place] | | | | | | [address] | | | | | | | | +--------+ + + + + | 12/17/ | Appointment | Infusion Therapy | Yancy Clifford MD | | | 2019 | | | [address] | | | | | | [place] | | | | | | [address] | | | | | | | | +--------+ + + + + | 01/07/ | Appointment | Infusion Therapy | Yancy Clifford MD | | | 2019 | | | [address] | | | | | | [place] | | | | | | [address] | | | | | | | | +--------+ + + + + | 01/07/ | Office | Oncology | Yancy Clifford MD | | | 2019 | Visit | | [address] | | | | | | [place] | | | | | | [address] | | | | | | | | +--------+ + + + + | 01/07/ | Appointment | Infusion Therapy | Yancy Clifford MD | | | 2019 | | | [address] | | | | | | [place] | | | | | | [address] | | | | | | | | +--------+ + + + + documented as of this encounter Visit Diagnoses Not on filedocumented in this encounter"
--- OUTSIDE RECORDS SUMMARY | ~2019-12-09 | XMS | Encounter Summary ---
Demographics + + + | Address | [address] | | | [place] [address] | + + + | Home Phone [...] | | | | [place] [address] | | + + + + + | Emory Larios | EBENEZER | Unknown | | + + + + + Care Team Providers + +------+ + | Care Landscaping And Groundskeeping Laborer Name | Role | Phone | + [...] Description | +--------+---------+ + + + | 11/27/ | Office | [facility] | Yancy Clifford MD | Malignant neoplasm | | 2019 | Visit | HEMATOLOGY AND | [address] | of left ovary (HCC) | | | | ONCOLOGY [address] | [place] | (Primary Dx) | | | | [address] | [address] | | | | | [place] | | | | | | [address] | Jennyfer Calvert | | | | | [phone] | CIERRA Lou [address] | | | | | [address] | | | | | | [place] [address] | | | | | | [phone] | | | | | | | [...] + documented in this encounter Progress Notes Nehal Jennyfer Carmine, CIERRA - 11/27/2019 10:30 AM PSTFormatting of this note might be differ ent from the original. ONCOLOGY FOLLOW-UP VISIT Patient ID: Ramila Lopez [...] 05/2017 Genetic Testing Negative genetic testing through [employer] [facility]. 07/2017 Surgery S/p debulking surgery. Final pathology [...] Clifford MD on 07/24/2019 Laterality: Left HPI: Ramila is here today accompanied by her in follow-up for ovarian cancer and ernestina pnea for treatment. She states she is feeling well. She reports that she is currently recove ring from a cold. She denies fevers or chills. She reports sinus congestion, sore throat a nd occasional nonproductive cough. She states that she is on amoxicillin and her symptoms a re improving. She denies chest pain, shortness of breath or palpitations. She denies abdom inal pain, nausea or changes in bowel or bladder function. She denies any new bone aches or pains. Review of Systems Constitutional: Negative for activity change, appetite change, fatigue, fever and unexpecte d weight change. HENT: Positive for congestion, postnasal drip and sore throat. Negative for mouth sores, no sebleeds and trouble swallowing. Respiratory: Positive for cough. Negative for shortness of breath. Cardiovascular: Negative for chest pain, palpitations and leg swelling. Gastrointestinal: Negative for abdominal distention, abdominal pain, constipation, diarrhea , nausea and vomiting. Genitourinary: Negative for difficulty urinating. Musculoskeletal: Positive for arthralgias. Negative for back pain and myalgias. Skin: Negative for rash. Neurological: Negative for dizziness, weakness, light-headedness, numbness and headaches. Hematological: Negative for adenopathy. Does not bruise/bleed easily. Allergies Allergen Reactions Codeine Nausea And Vomiting [...] on file prior to visit. Objective: BP (P) 120/68 | Pulse 99 | Temp 36.6 C (97.9 F) (Tympanic) | Resp 16 | Ht 1.626 m ( 5' 4.02") | Wt 83.5 kg (184 lb 1.3 oz) | SpO2 96% | BMI 31.58 kg/m ECO Physical Exam Vitals signs reviewed. Constitutional: General: She is not in acute distress. HENT: Mouth/Throat: Mouth: Mucous membranes are moist. Pharynx: Oropharynx is clear. No oropharyngeal exudate or posterior oropharyngeal erythe ma. Eyes: General: No scleral icterus. Extraocular Movements: Extraocular movements intact. Pupils: Pupils are equal, round, and reactive to light. Neck: Musculoskeletal: Normal range of motion and neck supple. Cardiovascular: Rate and Rhythm: Normal rate and regular rhythm. Heart sounds: Normal heart sounds. Pulmonary: Effort: Pulmonary effort is normal. No respiratory distress. Breath sounds: Wheezing (Scattered expiratory throughout) present. No rales. Abdominal: General: Bowel sounds are normal. There is no distension. Palpations: Abdomen is soft. There is no hepatomegaly or splenomegaly. Tenderness: There is no tenderness. There is no right CVA tenderness, left CVA tendernes s or guarding. Musculoskeletal: Normal range of motion. Right lower leg: No edema. Left lower leg: No edema. Lymphadenopathy: Cervical: No cervical adenopathy. Upper Body: Right upper body: No supraclavicular or axillary adenopathy. Left upper body: No supraclavicular or axillary adenopathy. Skin: General: Skin is warm and dry. Neurological: General: No focal deficit present. Mental Status: She is alert and oriented to person, place, and time. Hospital Outpatient Visit on 11/27/2019 Component Date Value Ref Range Status Na 11/27/2019 138 135 - 145 mmol/L Final Testing performed at [facility];[address] [facility];[place] [address] K 11/27/2019 4.3 3.5 - 4.9 mmol/L Final Testing performed at [facility];[address] [facility];[place] [address] Cl 11/27/2019 106 99 - 109 mmol/L Final Testing performed at [facility];[address] [facility];[place] [address] CO2 11/27/2019 27 23 - 32 mmol/L Final Testing Performed at [facility], [address], [address], [place] [address] Anion Gap 11/27/2019 9 5 - 20 mmol/L Final Testing performed at [facility];[address] [facility];[place] [address] Glucose 11/27/2019 135* 65 - 99 mg/dL Final BUN 11/27/2019 10 8 - 25 mg/dL Final Creatinine 11/27/2019 0.75 0.50 - 1.00 mg/dL Final BUN/Creatinine Ratio 11/27/2019 13 Final Calcium 11/27/2019 9.6 8.5 - 10.5 mg/dL Final Protein, Total 11/27/2019 6.8 6.3 - 8.2 g/dL Final Albumin 11/27/2019 3.5 3.3 - 4.8 g/dL Final Globulin 11/27/2019 3.3 1.3 - 4.9 g/dL Final A/G Ratio 11/27/2019 1.1 1.0 - 2.4 Final BILIRUBIN, TOTAL 11/27/2019 0.4 0.1 - 1.5 mg/dL Final ALK PHOS 11/27/2019 70 35 - 115 U/L Final AST 11/27/2019 15 10 - 45 U/L Final ALT 11/27/2019 16 10 - 65 U/L Final Estimated GFR 11/27/2019 >60 >60 mL/min/1.73m2 Final Comment: GFR <60: CHRONIC KIDNEY DISEASE, IF FOUND OVER A 3 MONTH PERIOD. GFR <15: KIDNEY FAILURE. FOR AMERICANS, MULTIPLY THE CALCULATED GFR BY 1.210. This eGFR is calculated using the MDRD IDMS traceable equation. Testing Performed at [facility], [address], [address], [place] [address] WBC 11/27/2019 8.16 3.80 - 11.00 K/uL Final RBC 11/27/2019 4.85 3.70 - 5.10 M/uL Final Hemoglobin 11/27/2019 14.0 11.3 - 15.5 g/dL Final Hematocrit 11/27/2019 42.7 34.0 - 46.0 % Final MCV 11/27/2019 88.1 80.0 - 100.0 fl Final MCH 11/27/2019 28.8 27.0 - 34.0 pg Final MCHC 11/27/2019 32.7 32.0 - 35.5 g/dL Final RDW-SD 11/27/2019 55.6* 37 - 53 fl Final Platelet Count 11/27/2019 278 150 - 400 K/uL Final MPV 11/27/2019 7.5 fl Final Diff Type 11/27/2019 AUTOMATED Final % Neutrophils 11/27/2019 62.04 % Final % Lymphocytes 11/27/2019 29.27 % Final Monocyte % 11/27/2019 5.79 % Final Eosinophils % 11/27/2019 1.59 % Final Basophils % 11/27/2019 1.31 % Final Neutrophils, Absolute 11/27/2019 5.06 1.90 - 7.40 K/uL Final Absolute Lymphocytes 11/27/2019 2.39 1.00 - 3.90 K/uL Final Absolute Monocytes 11/27/2019 0.47 0.00 - 0.80 K/uL Final Eosinophils, Absolute 11/27/2019 0.13 0.00 - 0.50 K/uL Final Basophils, Absolute 11/27/2019 0.11* 0.00 - 0.10 K/uL Final RBC Morphology 11/27/2019 1+ Final ANISO Platelet Estimate 11/27/2019 ADEQUATE Final Testing Performed at [facility], [address], [address], [place] [address] Imaging: Ct Chest Abdomen Pelvis W Contrast Result Date: 10/16/2019 Summary of Target Lesions: 1. Left periaortic node, image 160, 1.1 cm, previously 0.5 cm 2. Left external iliac node, image 214, 1.6 cm, previously 0.8 cm Comments: Recurrent disease and low retroperitoneal and bilateral pelvic lymph nodes. Signed by: Catracho Chinchilla Scott Sign Date/Time: 10/16/2019 2:47 PM Assessment: Ms. aRmila Lopez is a pleasant 59 yo female with: 1. History of left ovarian [...] response. She is currently on maintenance Avastin. Her CA125 is slowl y increasing since 10/2019. CT done in 10/2019 showed there may be slightly disease progress ion within the two pelvic lymph nodes. She is recommended to continue the Avastin with close monitoring. she is tolerating the the treatment well with no obvious side effects. There is no clinical evidence of disease progression. The review of systems, physical exam and lab results are a ppropriate. We will proceed with treatment today. Will consider re-challenging the carboplatin if her disease continue to progress. The patient was educated on the signs and symptoms of worsening disease and when to call fo r an earlier appointment. The patient was agreeable with the plan as outlined below, all the patient's questions were answered and she verbalized understanding. Plan: At the end of today's discussion, the patient expressed understanding and willingness to pr oceed with the plan as outlined below: 1. Proceed with treatment today. 2. Follow-up in 3 weeks with labs prior. 25 minutes were spent face to face with the patient. Over 50% of the time was spent in coun seling and coordination of care. CIERRA Hartley, MIKE [facility] Hematology Oncology 11/27/2019 Portions of this chart may have been created with voice recognition software. Occasional wr paul-word or "sound-alike" substitutions may have occurred, even after review, due to the inh erent limitations of voice recognition software. Please read the chart carefully and recogni ze, using context, where these substitutions have occurred. Personal communication is aj ruano for any clarifications. documented in this encounter [...] [place] | | | | | | [phone] | | | | | | | | +--------+ + + + + | 12/17/ | Office | Oncology | Yancy Clifford MD | | | 2019 | Visit | | [address] | | | | | | [place] | | | | | | [phone] | | | | | | | | +--------+ + + + + | 12/17/ | Appointment | Infusion Therapy | Yancy Clifford MD | | | 2019 | | | [address] | | | | | | [place] | | | | | | [address] | | | | | | | | +--------+ + + + + | 01/07/ | Appointment | Infusion Therapy | Yancy Clifford MD | | | 2019 | | | [address] | | | | | | [place] | | | | | | [address] | | | | | | | | +--------+ + + + + | 01/07/ | Office | Oncology | Yancy Clifford MD | | | 2019 | Visit | | [address] | | | | | | [place] | | | | | | [address] | | | | | | | | +--------+ + + + + | 01/07/ | Appointment | Infusion Therapy | Yancy Clifford MD | | | 2020 | | | [address] | | | | | | [place] | | | | | | [address] | | | | | | | | +--------+ + + + + documented as of this encounter Visit Diagnoses + + | Diagnosis | + + | 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
--- OUTSIDE RECORDS SUMMARY | ~2019-12-09 | XMS | Encounter Summary ---
Demographics + + + | Address | [address] [address] | | | [place] [address] | + + + | Home Phone [...] | | | | [place] [address] | | + + + + + | Emory Larios | ECON | Unknown | | + + + + + Care Team Providers + +------+ + | Care Donkey Ride Operator Name | Role | Phone | [...] Closed | | Radiology | Diagnoses | Maljamar, | [facility] [address] | | | | | Malignant | Jennyfer M, | [address] | | | | | neoplasm of | MARKETING AND DEVELOPMENT COORDINATOR [address] | [place], [place] | | | | | left ovary | [address] | [address] | | | | | (HCC) | AVE | Phone: | | | | | Procedures | [place], | [phone] | | | | | CT Chest | [place] [address] | Fax: | | | | | Abdomen | Phone: | [phone] | | | | | Pelvis w | [phone] | | | | | | Contrast | Fax: | | | | | | | [phone] | | +--------+--------+ + + + + Reason for Visit Diagnostic/Screening (Urgent) +--------+--------+ + + + + | Status | Reason | Specialty | Diagnoses / | Referred By | Referred To | | | | | Procedures | Contact | Contact | +--------+--------+ + + + + | Closed | | Radiology | Diagnoses | Nehal, | [facility] [address] | | | | | Malignant | Jennyfer Lou, | [address] | | | | | neoplasm of | MARKETING AND DEVELOPMENT COORDINATOR [address] | [place], [place] | | | | | left ovary | [address] | [address] | | | | | (HCC) | AVE | Phone: | | | | | Procedures | [place], | [phone] | | | | | CT Chest | [place] [address] | Fax: | | | | | Abdomen | Phone: | [phone] | | | | | Pelvis w | [phone] | | | | | | Contrast | Fax: | | | | | | | [phone] | | +--------+--------+ + + + + Encounter Details +--------+ + + + + | Date | Type | Department | Care Team | Description | +--------+ + + + + | 10/16/ | Hospital | [facility] | Jennyfer Calvert | Malignant neoplasm | | 2019 | Encounter | [facility] [address] | M, MARKETING AND DEVELOPMENT COORDINATOR [address] | of left ovary (HCC) | | | | [address] | [address] | | | | | [place], [place] | [place] [address] | | | | | [address] | [phone] | | | | | [phone] | | | +--------+ + + + [...] [place] | | | | | | [address] | | | | | | | | +--------+ + + + + | 12/17/ | Office | Oncology | Yancy Clifford MD | | | 2019 | Visit | | [address] | | | | | | [place] | | | | | | [address] | | | | | | | | +--------+ + + + + | 12/17/ | Appointment | Infusion Therapy | Yancy Clifford MD | | | 2019 | | | [address] | | | | | | [place] | | | | | | [address] | | | | | | | | +--------+ + + + + | 01/07/ | Appointment | Infusion Therapy | Yancy Clifford MD | | | 2019 | | | [address] | | | | | | [place] | | | | | | [address] | | | | | | | | +--------+ + + + + | 01/07/ | Office | Oncology | Yancy Clifford MD | | | 2019 | Visit | | [address] | | | | | | [place] | | | | | | [address] | | | | | | | | +--------+ + + + + | 01/07/ | Appointment | Infusion Therapy | Yancy Clifford MD | | | 2019 | | | [address] | | | | | | [place] | | | | | | [address] | | | | | | | [...]
--- OUTSIDE RECORDS SUMMARY | ~2019-12-09 | XMS | Encounter Summary ---
Demographics + + + | Address | [address] [address] | | | [place] [address] | + + + | Home Phone | | + + + | Preferred Language | Unknown | + + + | Marital Status | | + + + | Sikh Affiliation | Unknown | + + + | Race | Unknown | + + + | Ethnic Group | Unknown | + + + Author + + + | Author | [facility] | | | and [place] | + + + | Organization | [facility] | | [...] | | | | [place] [address] | | + + + + + | Emory Larios | ECON | Unknown | | + + + + + Care Team Providers + +------+ + | Care Needle Maker Name | Role | Phone | [...] + + | 09/24/ | Office | [facility] | Yancy Clifford MD | Malignant neoplasm | | 2019 | Visit | HEMATOLOGY AND | [address] | of left ovary (HCC) | | | | ONCOLOGY [address] | [place] | (Primary Dx); | | | | [address] | [address] | 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 07/2017 Surgery S/p debulking surgery. Final pathology [...] Testing Performed at [facility], [address], [address], [place] [address] Na 09/24/2019 136 135 - 145 mmol/L Final Testing performed at [facility];[address];[place] [address] K 09/24/2019 4.1 3.5 - 4.9 mmol/L Final Testing performed at [facility];[address] [facility];[place] [address] Cl 09/24/2019 104 99 - 109 mmol/L Final Testing performed at [facility];[address] [facility];[place] [address] CO2 09/24/2019 26 23 - 32 mmol/L Final Testing Performed at [facility], [address], [address], [place] [address] Anion Gap 09/24/2019 10 5 - 20 mmol/L Final Testing performed at [facility];[address] [facility];[place] [address] Glucose 09/24/2019 182* 65 - 99 mg/dL [...] Testing Performed at [facility], [address], [address], [place] [address] Imaging: Assessment: ECO 59 yo lady with [...] examining the patient, review of medical records, loan counselor ing, coordination of care, and CPOE. [...] | | | 2019 | | | [address] | | | | | | [place] | | | | | | [id number] | | | | | | | | +--------+ + + + + | 12/17/ | Office | Oncology | Yancy Clifford MD | | | 2019 | Visit | | [address] | | | | | | [place] | | | | | | [address] | | | | | | | | +--------+ + + + + | 12/17/ | Appointment | Infusion Therapy | Yancy Clifford MD | | | 2019 | | | [address] | | | | | | [place] | | | | | | [address] | | | | | | | | +--------+ + + + + | 01/07/ | Appointment | Infusion Therapy | Yancy Clifford MD | | | 2019 | | | [address] | | | | | | [place] | | | | | | [address] | | | | | | | | +--------+ + + + + | 01/07/ | Office | Oncology | Yancy Clifford MD | | | 2019 | Visit | | [address] | | | | | | [place] | | | | | | [address] | | | | | | | | +--------+ + + + + | 01/07/ | Appointment | Infusion Therapy | Yancy Clifford MD | | | 2020 | | | [address] | | | | | | [place] | | | | | | [address] | | | | | | | [...] | | | | | TCL;[address] [facility] | | | | | | [facility];[place] [address] | | | | | | | | | | + + + + + + + + | Specimen | + + | Blood | + + + + + + + | Performing | Address | City/State/Zipcode | Phone Number | | Organization | | | | + + + + + | REFERENCE LAB | [address] [place] [address] | [place] [address] | [phone] | | [facility] | Blvd. | | | | LABORATORY | | | | + + + + + | REFERENCE LAB | [address] [facility] | [place] [address] | | | [facility] | Blvd. | [...] | | | | | [place] [address] | | | | | | | | | | + + + + + + + + | Specimen | + + | Blood | + + + + + + + | Performing | Address | City/State/Zipcode | Phone Number | | Organization | | | | + + + + + | REFERENCE LAB | [address] [place] [address] | [place] [address] | [phone] | | [facility] | Blvd. | | | | LABORATORY | | | | + + + + + | REFERENCE LAB | [address] [place] [address] | [place] [address] | | | [facility] | Blvd. | [...] | performed at [facility];[address] | | [facility] | | | | [place] | | LABORATORY | | | | Blvd;[place] [address] | | | | | | | | | | + + + + + + + + | Specimen | + + | | + + + + + + + | Performing | Address | City/State/Zipcode | Phone Number | | Organization | | | | + + + + + | REFERENCE LAB | [address] [place] [address] | [place] [address] | [phone] | | [facility] | Blvd. | | | | LABORATORY | | | | + + + + + | REFERENCE LAB | [address] [place] [address] | [place] [address] | | | [facility] | Blvd. | [...] | performed at [facility];[address] | | [facility] | | | | [facility] | | LABORATORY | | | | Blvd;[place] [address] | | | | | | | | | | + + + + + + + + | Specimen | + + | | + + + + + + + | Performing | Address | City/State/Zipcode | Phone Number | | Organization | | | | + + + + + | REFERENCE LAB | [address] [place] [address] | [place] [address] | [phone] | | [facility] | Blvd. | | | | LABORATORY | | | | + + + + + | REFERENCE LAB | [address] [place] [address] | [place] [address] | | | [facility] | Blvd. | [...] | performed at [facility];[address] | | [facility] | | | | [place] | | LABORATORY | | | | Blvd;[place] [address] | | | | | | | | | | + + + + + + + + | Specimen | + + | | + + + + + + + | Performing | Address | City/State/Zipcode | Phone Number | | Organization | | | | + + + + + | REFERENCE LAB | [address] [facility] | [place] [address] | [phone] | | [facility] | Blvd. | | | | LABORATORY | | | | + + + + + | REFERENCE LAB | [address] | [place] [address] | | | [facility] | Blvd. | [...] - 1.030 | REFERENCE | | | [place], | | | LAB | | | [...] + + | REFERENCE LAB | [address] [place] [address] | [place] [address] | [phone] | | [facility] | Blvd. | | | | LABORATORY | | | | + + + + + | REFERENCE LAB | [address] [place] [address] | [place] [address] | | | [facility] | Blvd. | [...] | performed at [facility];[address] | | LAB | | | | [place] | | [facility] | | | | Blvd;[place] [address] | | LABORATORY | | + + + + + + + + | Specimen | + + | | + + + + + + + | Performing | Address | City/State/Zipcode | Phone Number | | Organization | | | | + + + + + | REFERENCE LAB | [address] [facility] | [place] [address] | [phone] | | [facility] | Blvd. | | | | LABORATORY | | | | + + + + + | REFERENCE LAB | [address] | [place] [address] | | | [facility] | Blvd. | [...]
--- OUTSIDE RECORDS SUMMARY | ~2019-12-09 | XMS | Encounter Summary ---
Demographics + + + | Address | [address] [address] | | | [place] [address] | + + + | Home Phone [...] | | | | [place] [address] | | + + + + + | Emory Larios | ECON | Unknown | | + + + + + Care Team Providers + +------+ + | Care Bushel Worker Name | Role | Phone | + +------+ + | Shannan Deng | PCP | | + +------+ + Encounter Details +--------+ + + + + | Date | Type | Department | Care Team | Description | +--------+ + + + + | 07/16/ | Orders Only | [facility] | Sushma Marquis | Malignant neoplasm | | 2019 | | INFUSION SUPPORT | A, RN | of left ovary (HCC) | | | | SERVICES [address] | | (Primary Dx) | | | | [address] | | | | | | [address] [place] | | | | | | [address] | | | | | | [phone] | | | +--------+ + + + [...] [place] | | | | | | [address] | | | | | | | | +--------+ + + + + | 12/17/ | Office | Oncology | Yancy Clifford MD | | | 2019 | Visit | | [address] | | | | | | [place] | | | | | | [address] | | | | | | | | +--------+ + + + + | 12/17/ | Appointment | Infusion Therapy | Yancy Clifford MD | | | 2019 | | | [address] | | | | | | [place] | | | | | | [address] | | | | | | | | +--------+ + + + + | 01/07/ | Appointment | Infusion Therapy | Yancy Clifford MD | | | 2019 | | | [address] | | | | | | [place] | | | | | | [address] | | | | | | | | +--------+ + + + + | 01/07/ | Office | Oncology | Yancy Clifford MD | | | 2019 | Visit | | [address] | | | | | | [place] | | | | | | [address] | | | | | | | | +--------+ + + + + | 01/07/ | Appointment | Infusion Therapy | Yancy Clifford MD | | | 2020 | | | [address] | | | | | | [place] | | | | | | [address] | | | | | | | | +--------+ + + + + documented as of this encounter Visit Diagnoses + + | Diagnosis | + + | 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
--- OUTSIDE RECORDS SUMMARY | ~2019-12-09 | XMS | Encounter Summary ---
Demographics + + + | Address | [address] | | | [place] [address] | + + + | Home Phone | | + + + | Preferred Language | Unknown | + + + | Marital Status | | + + + | Holiness Affiliation | Unknown | + + + [...] | | | | [place] [address] | | + + + + + | Emory Larios | ECON | Unknown | | + + + + + Care Team Providers + +------+ + | Care Computer Assembler Name | Role | Phone | + +------+ + | Shannan Deng | PCP | | + +------+ + Encounter Details +--------+ + + + + | Date | Type | Department | Care Team | Description | +--------+ + + + + | 08/19/ | Orders Only | [facility] | Yancy Clifford MD | | | 2017 | | INFUSION SUPPORT | [address] | | | | | SERVICES [address] | [place], [place] | | | | | [address] | [address] | | | | | [address] [place] | | | | | | [address] | | | | | | [phone] | | | +--------+ + + + [...] Filed: 08/19/1848 Encounter Date: 08/19/2018 Status: Signed Mechanical Technical Service Specialist: Bhakti Godfrey RN (Registered Nurse) Port accessed. [...] [place] | | | | | | [address] | | | | | | | | +--------+ + + + + | 12/17/ | Appointment | Infusion Therapy | Yancy Clifford MD | | | 2019 | | | [address] | | | | | | [place] | | | | | | [address] | | | | | | | | +--------+ + + + + | 01/07/ | Appointment | Infusion Therapy | Yancy Clifford MD | | | 2019 | | | [address] | | | | | | [place] | | | | | | [address] | | | | | | | | +--------+ + + + + | 01/07/ | Office | Oncology | Yancy Clifford MD | | | 2019 | Visit | | [address] | | | | | | [place] | | | | | | [address] | | | | | | | | +--------+ + + + + | 01/07/ | Appointment | Infusion Therapy | Yancy Clifford MD | | | 2019 | | | [address] | | | | | | [place] | | | | | | [address] | | | | | | | [...]
--- OUTSIDE RECORDS SUMMARY | ~2019-12-09 | XMS | Encounter Summary ---
Demographics + + + | Address | [address] | | | [place] [address] | + + + | Home Phone [...] | | | | [place] [address] | | + + + + + | Emory Larios | ECON | Unknown | | + + + + + Care Team Providers + +------+ + | Care Elementary Librarian Name | Role | Phone | + +------+ + | Shannan Deng | PCP | | + +------+ + Encounter Details +--------+ + + + + | Date | Type | Department | Care Team | Description | +--------+ + + + + | 07/23/ | Hospital | [facility] | Yancy Clifford MD | 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) | | | | SERVICES [address] | [place] | | | | | [address] | [id number] | | | | | [address] [place] | | | | | | [address] | Donya Mckeon, | | | | | [phone] | RN | | +--------+ + + [...] [place] | | | | | | [address] | | | | | | | | +--------+ + + + + | 12/17/ | Office | Oncology | Yancy Clifford MD | | 2019 | Visit | | [address] | | | | | | [place] | | | | | | [address] | | | | | | | | +--------+ + + + + | 12/17/ | Appointment | Infusion Therapy | Yancy Clifford MD | | | 2019 | | | [address] | | | | | | [place] | | | | | | [address] | | | | | | | | +--------+ + + + + | 01/07/ | Appointment | Infusion Therapy | Yancy Clifford MD | | | 2019 | | | [address] | | | | | | [place] | | | | | | [address] | | | | | | | | +--------+ + + + + | 01/07/ | Office | Oncology | Yancy Clifford MD | | | 2019 | Visit | | [address] | | | | | | [place] | | | | | | [address] | | | | | | | | +--------+ + + + + | 01/07/ | Appointment | Infusion Therapy | Yancy Clifford MD | | | 2020 | | | [address] | | | | | | [place] | | | | | | [address] | | | | | | | | +--------+ + + + + documented as of this encounter Visit Diagnoses + + | Diagnosis | + + | Malignant neoplasm of left ovary (HCC) Malignant neoplasm of ovary | + + documented in this encounter"
--- OUTSIDE RECORDS SUMMARY | ~2019-12-09 | XMS | Encounter Summary ---
Demographics + + + | Address | [address] | | | [place] [address] | + + + | Home Phone | | + + + | Preferred Language | Unknown | + + + | Marital Status | | + + + | Mandaen Affiliation | Unknown | + + + [...] | | | | [place] [address] | | + + + + + | Emoyr Larios | ECON | Unknown | | + + + + + Care Team Providers + +------+ + | Care Principal Clerk Name | Role | Phone | + +------+ + PCP | Unavailable | + +------+ + Encounter Details +--------+ + + + + | Date | Type | Department | Care Team | Description | +--------+ + + + + | 07/08/ | Hospital | [facility] | Conversion | Chronic deep vein | | 2018 | Encounter | [facility] | Transaction, | thrombosis (DVT) of | | | | ULTRASOUND [address] | Provider Unknown | other vein of right | | | | [address] | [phone] | upper extremity | | | | [place], [place] | | (HCC); Malignant | | | | [address] | Yancy Clifford MD [address] | neoplasm of both | | | | [phone] | [address] | ovaries (HCC) | | | | | [place] [address] | | | | | | [phone] | | | | | | | [...] Gardenia Seo CMA Service: (none) Author Type: Silk Finisher Filed: 07/30/18 5838 Date of Service: 07/08/182358 Status: Signed Sql Application Developer: Gardenia Seo CMA (Silk Finisher) Message informed to patient. docume nted in [...] [place] | | | | | | [address] | | | | | | | | +--------+ + + + + | 12/17/ | Office | Oncology | Yancy Clifford MD | | | 2019 | Visit | | [address] | | | | | | [place] | | | | | | [address] | | | | | | | | +--------+ + + + + | 12/17/ | Appointment | Infusion Therapy | Yancy Clifford MD | | | 2019 | | | [address] | | | | | | [place] | | | | | | [address] | | | | | | | | +--------+ + + + + | 01/07/ | Appointment | Infusion Therapy | Yancy Clifford MD | | | 2019 | | | [address] | | | | | | [place] | | | | | | [address] | | | | | | | | +--------+ + + + + | 01/07/ | Office | Oncology | Yancy Clifford MD | | | 2019 | Visit | | [address] | | | | | | [place] | | | | | | [address] | | | | | | | | +--------+ + + + + | 01/07/ | Appointment | Infusion Therapy | Yancy Clifford MD | | | 2019 | | | [address] | | | | | | [place] | | | | | | [address] | | | | | | | [...]
--- OUTSIDE RECORDS SUMMARY | ~2019-12-09 | XMS | Encounter Summary ---
Demographics + + + | Address | [address] | | | [place] [address] | + + + | Home Phone [...] | | | | [place] [address] | | + + + + + | Emory Larios | ECON | Unknown | | + + + + + Care Team Providers + +------+ + | Care Homicide Squad Commanding Officer Name | Role | Phone | [...] | | [address] | Director Vaccine | of left ovary (HCC) | | | | [place] | | | | | | [address] | | | | | | [phone] | | | +--------+ + + + [...] | | | 2019 | | | [address] | | | | | | [place] | | | | | | [address] | | | | | | | | +--------+ + + + + | 12/17/ | Office | Oncology | Yancy Clifford MD | | | 2019 | Visit | | [address] | | | | | | [place] | | | | | | [address] | | | | | | | | +--------+ + + + + | 12/17/ | Appointment | Infusion Therapy | Yancy Clifford MD | | | 2019 | | | [address] | | | | | | [place] | | | | | | [address] | | | | | | | | +--------+ + + + + | 01/07/ | Appointment | Infusion Therapy | Yancy Clifford MD | | | 2019 | | | [address] | | | | | | [place] | | | | | | [address] | | | | | | | | +--------+ + + + + | 01/07/ | Office | Oncology | Yancy Clifford MD | | | 2019 | Visit | | [address] | | | | | | [place] | | | | | | [address] | | | | | | | | +--------+ + + + + | 01/07/ | Appointment | Infusion Therapy | Yancy Clifford MD | | | 2020 | | | [address] | | | | | | [place] | | | | | | [address] | | | | | | | [...] | | | | | TCL;[address] | | | | | | [address];[place] [address] | | | | | | | | | | + + + + + + + + | Specimen | + + | Blood | + + + + + + + | Performing | Address | City/State/Zipcode | Phone Number | | Organization | | | | + + + + + | REFERENCE LAB | [address] | [place] [address] | [phone] | | [facility] | Blvd. | | | | LABORATORY | | | | + + + + + | REFERENCE LAB | [address] | [place] [id number] | | | [facility] | Blvd. | | | | LABORATORY | | | | + + + + + documented in this encounter Visit Diagnoses + + | Diagnosis | + + | Malignant neoplasm of left ovary (HCC) Malignant neoplasm of ovary | + + documented in this encounter"
--- OUTSIDE RECORDS SUMMARY | ~2019-12-09 | XMS | Encounter Summary ---
Demographics + + + | Address | [address] | | | [place] [address] | + + + | Home Phone [...] | | | | [place] [address] | | + + + + + | Emory Larios | ECON | Unknown | | + + + + + Care Team Providers + +------+ + | Care Passenger Flagman Name | Role | Phone | + +------+ + | Shannan Deng | PCP | | + +------+ + Encounter Details +--------+ + + + + | Date | Type | Department | Care Team | Description | +--------+ + + + + | 07/05/ | Orders Only | [facility] | Lizzette Yumiko, | | | 2019 | | HEMATOLOGY AND | RN | | | | | ONCOLOGY [address] | | | | | [address] | | | | | | [place] | | | | | | [address] | | | | | | [phone] | | | +--------+ + + + [...] [place] | | | | | | [address] | | | | | | | | +--------+ + + + + | 12/17/ | Office | Oncology | Yancy Clifford MD | | | 2019 | Visit | | [address] | | | | | | [place] | | | | | | [address] | | | | | | | | +--------+ + + + + | 12/17/ | Appointment | Infusion Therapy | Yancy Clifford MD | | | 2019 | | | [address] | | | | | | [place] | | | | | | [address] | | | | | | | | +--------+ + + + + | 01/07/ | Appointment | Infusion Therapy | Yancy Clifford MD | | | 2019 | | | [address] | | | | | | [place] | | | | | | [address] | | | | | | | | +--------+ + + + + | 01/07/ | Office | Oncology | Yancy Clifford MD | | | 2019 | Visit | | [address] | | | | | | [place] | | | | | | [address] | | | | | | | | +--------+ + + + + | 01/07/ | Appointment | Infusion Therapy | Yancy Clifford MD | | | 2019 | | | [address] | | | | | | [place] | | | | | | [id number] | | | | | | | | +--------+ + + + + documented as of this encounter Visit Diagnoses Not on filedocumented in this encounter"
--- OUTSIDE RECORDS SUMMARY | ~2019-12-09 | XMS | Encounter Summary ---
Demographics + + + | Address | [address] | | | [place] [address] | + + + | Home Phone | | + + + | Preferred Language | Unknown | + + + | Marital Status | | + + + | Mosque Affiliation | Unknown | + + + | Race | Unknown | + + + | Ethnic Group | Unknown | + + + Author + + + | Author | [facility] | | | and [place] | + + + | Organization | [facility] | | | [...] | | | | [place] [address] | | + + + + + | Emory Larios | ECON | Unknown | | + + + + + Care Team Providers + +------+ + | Care Jewelry Setter Name | Role | Phone | + +------+ + | Shannan Deng | PCP | | + +------+ + Encounter Details +--------+ + + + + | Date | Type | Department | Care Team | Description | +--------+ + + + + | 07/23/ | Orders Only | [facility] | CrockerYumiko pichardo, | Malignant neoplasm | | 2019 | | HEMATOLOGY AND | RN | of left ovary (HCC) | | | | ONCOLOGY [address] | | (Primary Dx) | | | | [address] | | | | | | [place] | | | | | | [address] | | | | | | [phone] | | | +--------+ + + + [...] [place] | | | | | | [address] | | | | | | | | +--------+ + + + + | 12/17/ | Office | Oncology | Yancy Clifford MD | | | 2019 | Visit | | [address] | | | | | | [place] | | | | | | [address] | | | | | | | | +--------+ + + + + | 12/17/ | Appointment | Infusion Therapy | Yancy Clifford MD | | | 2019 | | | [address] | | | | | | [place] | | | | | | [address] | | | | | | | | +--------+ + + + + | 01/07/ | Appointment | Infusion Therapy | Yancy Clifford MD | | | 2019 | | | [address] | | | | | | [place] | | | | | | [address] | | | | | | | | +--------+ + + + + | 01/07/ | Office | Oncology | Yancy Clifford MD | | | 2019 | Visit | | [address] | | | | | | [place] | | | | | | [address] | | | | | | | | +--------+ + + + + | 01/07/ | Appointment | Infusion Therapy | Yancy Clifford MD | | | 2020 | | | [address] | | | | | | [place] | | | | | | [address] | | | | | | | | +--------+ + + + + documented as of this encounter Visit Diagnoses + + | Diagnosis | + + | 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
--- OUTSIDE RECORDS SUMMARY | ~2019-12-09 | XMS | Encounter Summary ---
Demographics + + + | Address | [address] | | | [place] [address] | + + + | Home Phone [...] | | | | [place] [address] | | + + + + + | Emory Larios | ECON | Unknown | | + + + + + Care Team Providers + +------+ + | Care Lacquer Spray Booth Operator Name | Role | Phone | [...] | | Ascites, | [place], | [place] [address] | | | | | malignant | [place] [address] | Phone: | | | | | Procedures | Phone: | [phone] | | | | | [place] | [phone] | Fax: | | | | | BEVACIZUMAB | Fax: | [phone] | | | | | INJECTION, | [phone] | | | | | | 10 MG [id number] | | | | | | | - [place] | | | | | | | [...] + + | 09/03/ | Hospital | [facility] | Yancy Clifford MD | Malignant neoplasm | | 2019 | Encounter | HEMATOLOGY AND | [address] | of left ovary (HCC) | | | | ONCOLOGY INFUSIONS | [place], [place] | (Primary Dx); | | | | [address] | [address] | Ascites, malignant | | | | [address]VE [place], [place] | | | | | | [address] | Bhakti Godfrey RN | | | | | [phone] | | | +--------+ + + + [...] vein. It is given by a health acute care physician in a h ospital or clinic setting. Talk to your block bolter mule operator regarding the use of this medicine in children. Special care may be needed. What side effects may I notice from receiving this medicine? Side effects that you should report to your doctor or health acute care physician as soon as p ossible: [...] attention (report to your doctor or health acute care physician if they continue or are bothersome): back pain changes in taste decreased appetite dry skin nausea tiredness What may interact with this medicine? Interactions are not expected. What if I miss a dose? It is important not to miss your dose. Call your doctor or health acute care physician if you are unable to [...] should talk to your doctor or health acute care physician if you are concerned about [...] with [facility] in [facility] INFUSION SUPPORT SERVICES 09/24/2019 1415 - Office Visit Extended appointment starts at 1430 with Yancy Clifford MD in [facility] HEMATOLOGY AND ONCOLOGY 09/24/2019 1500 - Onc Infusion with JAZZY CHAIR 15 in [facility] HEMATOLOGY AND ONCOLOGY INFUSIONS documented in [...] [place] | | | | | | [address] | | | | | | | | +--------+ + + + + | 12/17/ | Office | Oncology | Yancy Clifford MD | | | 2019 | Visit | | [address] | | | | | | [place] | | | | | | [address] | | | | | | | | +--------+ + + + + | 12/17/ | Appointment | Infusion Therapy | Yancy Clifford MD | | | 2019 | | | [address] | | | | | | [place] | | | | | | [address] | | | | | | | | +--------+ + + + + | 01/07/ | Appointment | Infusion Therapy | Yancy Clifford MD | | | 2019 | | | [address] | | | | | | [place] | | | | | | [address] | | | | | | | | +--------+ + + + + | 01/07/ | Office | Oncology | Yancy Clifford MD | | | 2019 | Visit | | [address] | | | | | | [place] | | | | | | [address] | | | | | | | | +--------+ + + + + | 01/07/ | Appointment | Infusion Therapy | Yancy Clifford MD | | | 2019 | | | [address] | | | | | | [place] | | | | | | [address] | | | | | | | [...]
--- OUTSIDE RECORDS SUMMARY | ~2019-12-09 | XMS | Encounter Summary ---
Demographics + + + | Address | [address] | | | [place] [address] | + + + | Home Phone | | + + + | Preferred Language | Unknown | + + + | Marital Status | | + + + | Caodaism Affiliation | Unknown | + + + | Race | Unknown | + + + | Ethnic Group | Unknown | + + + Author + + + | Author | [facility] | | | and [place] | + + + | Organization | [facility] | | [...] | | | | | [place] [address] | | + + + + + | Emory Larios | ECON | Unknown | | + + + + + Care Team Providers + +------+ + | Care Grip Wrapper Name | Role | Phone | + +------+ + PCP | Unavailable | + +------+ + Encounter Details +--------+ + + + + | Date | Type | Department | Care Team | Description | +--------+ + + + + | 06/11/ | Orders Only | [facility] | Yancy Clifford MD | | | 2018 | | INFUSION SUPPORT | [address] | | | | | SERVICES [address] | [place], [place] | | | | | [address] | [address] | | | | | [address] [place] | | | | | | [address] | | | | | | [phone] | | | +--------+ + + + [...] Notes by Sushma Mcfarlane RN at 06/11/19 4288 Author: Sushma Mcfarlane RN Service: (none) Author Type: Registered Nurse Filed: 06/11/19 1337 Encounter Date: 06/11/2019 Status: Signed Project Manager Industrial: Sushma Mcfarlane RN (Registered Nurse) Port accessed [...] [place] | | | | | | [address] | | | | | | | | +--------+ + + + + | 12/17/ | Appointment | Infusion Therapy | Yancy Clifford MD | | | 2019 | | | [address] | | | | | | [place] | | | | | | [address] | | | | | | | | +--------+ + + + + | 01/07/ | Appointment | Infusion Therapy | Yancy Clifford MD | | | 2019 | | | [address] | | | | | | [place] | | | | | | [address] | | | | | | | | +--------+ + + + + | 01/07/ | Office | Oncology | Yancy Clifford MD | | | 2019 | Visit | | [address] | | | | | | [place] | | | | | | [address] | | | | | | | | +--------+ + + + + | 01/07/ | Appointment | Infusion Therapy | Yancy Clifford MD | | | 2019 | | | [address] | | | | | | [place] | | | | | | [address] | | | | | | | [...] - 1.030 | EXTERNAL | | | [facility] | | | LAB | | + [...]
--- OUTSIDE RECORDS SUMMARY | ~2019-12-09 | XMS | Encounter Summary ---
Demographics + + + | Address | [address] | | | [place] [address] | + + + | Home Phone | | + + + | Preferred Language | Unknown | + + + | Marital Status | | + + + | Cheondoism Affiliation | Unknown | + + + | Race | Unknown | + + + | Ethnic Group | Unknown | + + + Author + + + | Author | [facility] | | | and [place] | + + + | Organization | [facility] | | [...] | | | | [place] [address] | | + + + + + | Emory Larios | ECON | Unknown | | + + + + + Care Team Providers + +------+ + | Care Stack Matcher Name | Role | Phone | + +------+ + PCP | Unavailable | + +------+ + Encounter Details +--------+ + + + + | Date | Type | Department | Care Team | Description | +--------+ + + + + | 06/14/ | Hospital | [facility] | Conversion | Back pain, | | 2015 | Encounter | CONVERSION [address]P [address] | Transaction, | unspecified location | | | | [address] | Provider Unknown | | | | | [place], [place] | | | | | | [address] | (Fax) | | | | | [...] [place] | | | | | | [address] | | | | | | | | +--------+ + + + + | 12/17/ | Office | Oncology | Yancy Clifford MD | | | 2019 | Visit | | [address] | | | | | | [place] | | | | | | [address] | | | | | | | | +--------+ + + + + | 12/17/ | Appointment | Infusion Therapy | Yancy Clifford MD | | | 2019 | | | [address] | | | | | | [place] | | | | | | [address] | | | | | | | | +--------+ + + + + | 01/07/ | Appointment | Infusion Therapy | Yancy Clifford MD | | | 2019 | | | [address] | | | | | | [place] | | | | | | [address] | | | | | | | | +--------+ + + + + | 01/07/ | Office | Oncology | Yancy Clifford MD | | | 2019 | Visit | | [address] | | | | | | [place] | | | | | | [address] | | | | | | | | +--------+ + + + + | 01/07/ | Appointment | Infusion Therapy | Yancy Clifford MD | | | 2019 | | | [address] | | | | | | [place] | | | | | | [address] | | | | | | | [...]
--- OUTSIDE RECORDS SUMMARY | ~2019-12-09 | XMS | Encounter Summary ---
Demographics + + + | Address | [address] | | | [place] [address] | + + + | Home Phone | | + + + | Preferred Language | Unknown | + + + | Marital Status | | + + + | Mosque Affiliation | Unknown | + + + | Race | Unknown | + + + | Ethnic Group | Unknown | + + + Author + + + | Author | [facility] | | | and [place] | + + + | Organization | [facility] | | | [...] | | | | [place] [address] | | + + + + + | Emory Larios | EBENEZER | Unknown | | + + + + + Care Team Providers + +------+ + | Care Peoplesoft Taleo Manager Name | Role | Phone | [...] + + | 11/27/ | Office | [facility] | Yancy Clifford MD | Malignant neoplasm | | 2019 | Visit | HEMATOLOGY AND | [address] | of left ovary (HCC) | | | | ONCOLOGY [address] | [place] | (Primary Dx) | | | | [address] | [address] | | | | | [place] | | | | | | [address] | Jennyfer Calvert | | | | | [phone] | CIERRA Lou [address] | | | | | | [address] | | | | | | [place] [address] | | | | | | [phone] | | | | | | | [...] 05/2017 Genetic Testing Negative genetic testing through [facility]. 07/2017 Surgery S/p debulking surgery. Final pathology [...] - 145 mmol/L Final Testing performed at [facility];[address];[place] [address] K 11/27/2019 4.3 3.5 - 4.9 mmol/L Final Testing performed at [facility];[address];[place] [address] Cl 11/27/2019 106 99 - 109 mmol/L Final Testing performed at [facility];[address];[place] [address] CO2 11/27/2019 27 23 - 32 mmol/L Final Testing Performed at [facility], [address], [address], [place] [address] Anion Gap 11/27/2019 9 5 - 20 mmol/L Final Testing performed at [facility];[address];[place] [address] Glucose 11/27/2019 135* 65 - 99 mg/dL [...] MDRD IDMS traceable equation. Testing Performed at [facility], [address], [address], [place] [address] WBC 11/27/2019 8.16 3.80 - 11.00 K/uL [...] Estimate 11/27/2019 ADEQUATE Final Testing Performed at [facility], [address], [address], [place] [address] Imaging: Ct Chest Abdomen Pelvis W Contrast [...] [place], [facility] Hematology Oncology 11/27/2019 Portions of this [...] [place] | | | | | | [id number] | | | | | | | | +--------+ + + + + | 12/17/ | Office | Oncology | Yancy Clifford MD | | | 2019 | Visit | | [address] | | | | | | [place] | | | | | | [phone] | | | | | | | | +--------+ + + + + | 12/17/ | Appointment | Infusion Therapy | Yancy Clifford MD | | | 2019 | | | [address] | | | | | | [place] | | | | | | [address] | | | | | | | | +--------+ + + + + | 01/07/ | Appointment | Infusion Therapy | Yancy Clifford MD | | | 2019 | | | [address] | | | | | | [place] | | | | | | [address] | | | | | | | | +--------+ + + + + | 01/07/ | Office | Oncology | Yancy Clifford MD | | | 2019 | Visit | | [address] | | | | | | [place] | | | | | | [address] | | | | | | | | +--------+ + + + + | 01/07/ | Appointment | Infusion Therapy | Yancy Clifford MD | | | 2020 | | | [address] | | | | | | [place] | | | | | | [address] | | | | | | | | +--------+ + + + + documented as of this encounter Visit Diagnoses + + | Diagnosis | + + | 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
--- OUTSIDE RECORDS SUMMARY | ~2019-12-09 | XMS | Encounter Summary ---
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 | | | | [phone] | | (HCC); Pleural | | | [...] [place] | | | | | | [address] | | | | | | | [...] [place] | | | | | | [address] | | | | | | | | +--------+ + + + + | 01/07/ | Appointment | Infusion Therapy | Yancy Clifford MD | | | 2019 | | | [address] | | | | | | [place] | | | | | | [address] | | | | | | | | +--------+ + + + + | 01/07/ | Office | Oncology | Yancy Clifford MD | | | 2019 | Visit | | [address] | | | | | | [place] | | | | | | [address] | | | | | | | | +--------+ + + + + | 01/07/ | Appointment | Infusion Therapy | Yancy Clifford MD | | | 2020 | | | [address] | | | | | | [place] | | | | | | [address] | | | | | | | [...] | | | | | TC;[address] [facility] | | | | | | [facility];[place] [address] | | | | | | | | | | + + + + + + + + | Specimen | + + | Blood | + + + + + + + | Performing | Address | City/State/Zipcode | Phone Number | | Organization | | | | + + + + + | REFERENCE LAB | [address] | [place] [address] | [phone] | | [facility] | Blvd[address] | | | | LABORATORY | | | | + + + + + | REFERENCE LAB | [address] | [place] [address] | | | [facility] | Blvd[address] | [...]
--- OUTSIDE RECORDS SUMMARY | ~2019-12-09 | XMS | Encounter Summary ---
Demographics + + + | Address | [address] | | | [place] [address] | + + + | Home Phone [...] | | | | [place] [address] | | + + + + + | Emory Larios | ECON | Unknown | | + + + + + Care Team Providers + +------+ + | Care Silica Dry Press Helper Name | Role | Phone | + +------+ + | Shannan Deng | PCP | | + +------+ + Encounter Details +--------+ + + + + | Date | Type | Department | Care Team | Description | +--------+ + + + + | 11/27/ | Hospital | [facility] | Yancy Clifford MD | 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) | | | | SERVICES [address] | [place] | (Primary Dx) | | | | [address] [place] | [phone] | | | | | [address] [place] | | | | | | [address] | An[place]a [place] | | | | | [phone] | Yulia, RN | | +--------+ + [...] [place] | | | | | | [address] | | | | | | | | +--------+ + + + + | 12/17/ | Office | Oncology | Yancy Clifford MD | | | 2019 | Visit | | [address] | | | | | | [place] | | | | | | [address] | | | | | | | | +--------+ + + + + | 12/17/ | Appointment | Infusion Therapy | Yancy Clifford MD | | | 2019 | | | [address] | | | | | | [place] | | | | | | [address] | | | | | | | | +--------+ + + + + | 01/07/ | Appointment | Infusion Therapy | Yancy Clifford MD | | | 2019 | | | [address] | | | | | | [place] | | | | | | [address] | | | | | | | | +--------+ + + + + | 01/07/ | Office | Oncology | Yancy Clifford MD | | | 2019 | Visit | | [address] | | | | | | [place] | | | | | | [address] | | | | | | | | +--------+ + + + + | 01/07/ | Appointment | Infusion Therapy | Yancy Clifford MD | | | 2019 | | | [address] | | | | | | [place] | | | | | | [address] | | | | | | | [...] | | | Estimate | Performed at [facility], [address] | | LAB | | | | [address] | | [facility] | | | | [address], [place] | | LABORATORY | | | | [address] | | | | + + + + + + + + | Specimen | + + | Blood | + + + + + + + | Performing | Address | City/State/Zipcode | Phone Number | | Organization | | | | + + + + + | REFERENCE LAB | [address] | [place] [address] | [phone] | | [facility] | Blvd. | | | | LABORATORY | | | | + + + + + | REFERENCE LAB | [address] | [place] [address] | | | [facility] | Blvd[address] | [...] [facility] | | | | Blvd;[place] [address] | | LABORATORY | | + + + + + + | K | 4.3Comment: Testing | 3.5 - 4.9 | REFERENCE | | | | performed at [facility];[address] | mmol/L | LAB | | | | [place] | | [facility] | | | | Blvd;[place] [address] | | LABORATORY | | + + + + + + | Cl | 106Comment: Testing | 99 - 109 mmol/L | REFERENCE | | | | performed at [facility];[address] | | LAB | | | | [place] | | [facility] | | | | Blvd;[place] [address] | | LABORATORY | | + + + + + + | CO2 | 27Comment: Testing | 23 - 32 mmol/L | REFERENCE | | | | Performed at [facility], [address] | | LAB | | | | [address] | | [facility] | | | | [address], [place] | | LABORATORY | | | | [address] | | | | + + + + + + | Anion Gap | 9Comment: Testing | 5 - 20 mmol/L | REFERENCE | | | | performed at [facility];[address] | | LAB | | | | [place] | | [facility] | | | | Blvd;[place] [address] | | LABORATORY | | + + [...] [place] | | | | | | [address] | | | | + + + + + + + + | Specimen | + + | Blood | + + + + + + + | Performing | Address | City/State/Zipcode | Phone Number | | Organization | | | | + + + + + | REFERENCE LAB | [address] | [place] [address] | [phone] | | [facility] | Blvd. | | | | LABORATORY | | | | + + + + + | REFERENCE LAB | [address] | [place] [address] | | | [facility] | Blvd. | [...]
--- OUTSIDE RECORDS SUMMARY | ~2019-12-09 | XMS | Encounter Summary ---
Demographics + + + | Address | [address] | | | [place] [address] | + + + | Home Phone | | + + + | Preferred Language | Unknown | + + + | Marital Status | | + + + | Latter-Day Affiliation | Unknown | + + + [...] | | | | [place] [address] | | + + + + + | Emory Larios | ECON | Unknown | | + + + + + Care Team Providers + +------+ + | Care Calcine Furnace Tender Name | Role | Phone | [...] Unknown | | | | | [place], [place] | [phone] | | | | | [address] | | | | | | [phone] | | | +--------+ + + + [...] [place] | | | | | | [address] | | | | | | | | +--------+ + + + + | 12/17/ | Office | Oncology | Yancy Clifford MD | | | 2019 | Visit | | [address] | | | | | | [place] | | | | | | [address] | | | | | | | | +--------+ + + + + | 12/17/ | Appointment | Infusion Therapy | Yancy Clifford MD | | | 2019 | | | [address] | | | | | | [place] | | | | | | [address] | | | | | | | | +--------+ + + + + | 01/07/ | Appointment | Infusion Therapy | Yancy Clifford MD | | | 2019 | | | [address] | | | | | | [place] | | | | | | [address] | | | | | | | | +--------+ + + + + | 01/07/ | Office | Oncology | Yancy Clifford MD | | | 2019 | Visit | | [address] | | | | | | [place] | | | | | | [address] | | | | | | | | +--------+ + + + + | 01/07/ | Appointment | Infusion Therapy | Yancy Clifford MD | | | 2019 | | | [address] | | | | | | [place] | | | | | | [address] | | | | | | | | +--------+ + + + + documented as of this encounter Visit Diagnoses Not on filedocumented in this encounter"
--- OUTSIDE RECORDS SUMMARY | ~2019-12-09 | XMS | Encounter Summary ---
Demographics + + + | Address | [address] | | | [place] [address] | + + + | Home Phone | | + + + | Preferred Language | Unknown | + + + | Marital Status | | + + + | Yarsani Affiliation | Unknown | + + + | Race | Unknown | + + + | Ethnic Group | Unknown | + + + Author + + + | Author | [facility] | | | and [place] | + + + | Organization | [facility] | | | and [...] | | | | [place] [address] | | + + + + + | Emory Larios | ECON | Unknown | | + + + + + Care Team Providers + +------+ + | Care Geothermal Plant Manager Name | Role | Phone | + +------+ + | Shannan Deng | PCP | | + +------+ + Encounter Details +--------+ + + + + | Date | Type | Department | Care Team | Description | +--------+ + + + + | 07/22/ | Orders Only | [facility] | Sushma Marquis | Malignant neoplasm | | 2019 | | INFUSION SUPPORT | A, RN | of left ovary (HCC) | | | | SERVICES [address] | | (Primary Dx) | | | | [address] | | | | | | [address] [place] | | | | | | [address] | | | | | | [phone] | | | +--------+ + + + [...] [place] | | | | | | [address] | | | | | | | | +--------+ + + + + | 12/17/ | Office | Oncology | Yancy Clifford MD | | | 2019 | Visit | | [address] | | | | | | [place] | | | | | | [address] | | | | | | | | +--------+ + + + + | 12/17/ | Appointment | Infusion Therapy | Yancy Clifford MD | | | 2019 | | | [address] | | | | | | [place] | | | | | | [address] | | | | | | | | +--------+ + + + + | 01/07/ | Appointment | Infusion Therapy | Yancy Clifford MD | | | 2019 | | | [address] | | | | | | [place] | | | | | | [address] | | | | | | | | +--------+ + + + + | 01/07/ | Office | Oncology | Yancy Clifford MD | | | 2019 | Visit | | [address] | | | | | | [place] | | | | | | [address] | | | | | | | | +--------+ + + + + | 01/07/ | Appointment | Infusion Therapy | Yancy Clifford MD | | | 2020 | | | [address] | | | | | | [place] | | | | | | [id number] | | | | | | | | +--------+ + + + + documented as of this encounter Visit Diagnoses + + | Diagnosis | + + | 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
--- OUTSIDE RECORDS SUMMARY | ~2019-12-09 | XMS | Encounter Summary ---
Demographics + + + | Address | [address] [facility] [facility] [address] [address] | | | [place] [address] | + + + | Home Phone | | + + + | Preferred Language | Unknown | + + + | Marital Status | | + + + | Gnosticism Affiliation | Unknown | + + + [...] | | | | [place] [address] | | + + + + + | Emory Larios | ECON | Unknown | | + + + + + Care Team Providers + +------+ + | Care Extras Casting Director Name | Role | Phone | + +------+ + | Shannan Deng | PCP | | + +------+ + Encounter Details +--------+ + + + + | Date | Type | Department | Care Team | Description | +--------+ + + + + | 11/27/ | Hospital | [facility] | Yancy Clifford MD | 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) | | | | SERVICES [address] | [place] | (Primary Dx) | | | | [address] [place] | [id number] | | | | | [address] [place] | | | | | | [id number] | Anitha [place] | | | | | [phone] | Yulia, RN | | +--------+ + [...] [place] | | | | | | [address] | | | | | | | | +--------+ + + + + | 12/17/ | Office | Oncology | Yancy Clifford MD | | | 2019 | Visit | | [address] | | | | | | [place] | | | | | | [address] | | | | | | | | +--------+ + + + + | 12/17/ | Appointment | Infusion Therapy | Yancy Clifford MD | | | 2019 | | | [address] | | | | | | [place] | | | | | | [address] | | | | | | | | +--------+ + + + + | 01/07/ | Appointment | Infusion Therapy | Yancy Clifford MD | | | 2019 | | | [address] | | | | | | [place] | | | | | | [address] | | | | | | | | +--------+ + + + + | 01/07/ | Office | Oncology | Yancy Clifford MD | | | 2019 | Visit | | [address] | | | | | | [place] | | | | | | [address] | | | | | | | | +--------+ + + + + | 01/07/ | Appointment | Infusion Therapy | Yancy Clifford MD | | | 2019 | | | [address] | | | | | | [place] | | | | | | [address] | | | | | | | [...] | | | Estimate | Performed at [facility], [address] | | LAB | | | | [address] | | [facility] | | | | [address], [place] | | LABORATORY | | | | [address] | | | | + + + + + + + + | Specimen | + + | Blood | + + + + + + + | Performing | Address | City/State/Zipcode | Phone Number | | Organization | | | | + + + + + | REFERENCE LAB | [address] [facility] | [place] [address] | [phone] | | [facility] | Blvd. | | | | LABORATORY | | | | + + + + + | REFERENCE LAB | [address] [facility] | [place] [address] | | | [facility] | Blvd. | [...] [facility] | | | | Blvd;[place] [address] | | LABORATORY | | + + + + + + | K | 4.3Comment: Testing | 3.5 - 4.9 | REFERENCE | | | | performed at [facility];[address] | mmol/L | LAB | | | | [place] | | [facility] | | | | Blvd;[place] [address] | | LABORATORY | | + + + + + + | Cl | 106Comment: Testing | 99 - 109 mmol/L | REFERENCE | | | | performed at [facility];[address] | | LAB | | | | [place] | | [facility] | | | | Blvd;[place] [address] | | LABORATORY | | + + + + + + | CO2 | 27Comment: Testing | 23 - 32 mmol/L | REFERENCE | | | | Performed at [facility], [address] | | LAB | | | | [address] | | [facility] | | | | [address], [place] | | LABORATORY | | | | [address] | | | | + + + + + + | Anion Gap | 9Comment: Testing | 5 - 20 mmol/L | REFERENCE | | | | performed at [facility];[address] | | LAB | | | | [place] | | [facility] | | | | Blvd;[place] [address] | | LABORATORY | | + + [...] [place] | | | | | | [address] | | | | + + + + + + + + | Specimen | + + | Blood | + + + + + + + | Performing | Address | City/State/Zipcode | Phone Number | | Organization | | | | + + + + + | REFERENCE LAB | [address] [facility] | [place] [address] | [phone] | | [facility] | Blvd. | | | | LABORATORY | | | | + + + + + | REFERENCE LAB | [address] | [place] [address] | | | [facility] | Blvd. | [...]
--- OUTSIDE RECORDS SUMMARY | ~2019-12-09 | XMS | Encounter Summary ---
Demographics + + + | Address | [address] | | | [place] [address] | + + + | Home Phone | | + + + | Preferred Language | Unknown | + + + | Marital Status | | + + + | Congregational Affiliation | Unknown | + + + | Race | Unknown | + + + | Ethnic Group | Unknown | + + + Author + + + | Author | [facility] | | | and [place] | + + + | Organization | [facility] [...] | | | | [place] [address] | | + + + + + | Emory Larios | EBENEZER | Unknown | | + + + + + Care Team Providers + +------+ + | Care Machine Molder Name | Role | Phone | [...] + + | 09/03/ | Office | [facility] | Yancy Clifford MD | Malignant neoplasm | | 2019 | Visit | HEMATOLOGY AND | [address] | of left ovary (HCC) | | | | ONCOLOGY [address] | [place] | (Primary Dx) | | | | [address] | [address] | | | | | [place] | | | | | | [address] | Jennyfer Calvert | | | | | [phone] | M, COMMUNITY PROGRAM ASSISTANT [address] | | | | | | [address] | | | | | | [place] [address] | | | | | | [phone] | | | | | | | [...] might be differ ent from the original. [facility] Hematology & Oncology Oncology Progress Note Patient [...] 05/2017 Genetic Testing Negative genetic testing through [employer] [employer]. 07/2017 Surgery S/p debulking surgery. Final pathology [...] 35 U/mL Final Comment: THE [employer] (FORMER[employer]) ADVIA HyperfairAUR IMMUNOASSAY METHOD IS USED. RESULTS OBTAINED WITH DIFFERENT ASSAY METHODS OR KITS CANNOT BE USED INTERCHANGEABLY. Testing performed at [facility];[address] [facility];[place] [address] Ct Chest Abdomen Pelvis W Contrast Result [...] and coordination of care. CIERRA Hartley, MIKE [facility] Hematology Oncology 09/03/2019 Portions of this chart [...] [place] | | | | | | [address] | | | | | | | | +--------+ + + + + | 12/17/ | Office | Oncology | Yancy Clifford MD | | | 2019 | Visit | | [address] | | | | | | [place] | | | | | | [address] | | | | | | | | +--------+ + + + + | 12/17/ | Appointment | Infusion Therapy | Yancy Clifford MD | | | 2019 | | | [address] | | | | | | [place] | | | | | | [address] | | | | | | | | +--------+ + + + + | 01/07/ | Appointment | Infusion Therapy | Yancy Clifford MD | | | 2019 | | | [address] | | | | | | [place] | | | | | | [address] | | | | | | | | +--------+ + + + + | 01/07/ | Office | Oncology | Yancy Clifford MD | | | 2019 | Visit | | [address] | | | | | | [place] | | | | | | [address] | | | | | | | | +--------+ + + + + | 01/07/ | Appointment | Infusion Therapy | Yancy Clifford MD | | | 2020 | | | [address] | | | | | | [place] | | | | | | [address] | | | | | | | | +--------+ + + + + documented as of this encounter Visit Diagnoses + + | Diagnosis | + + | 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
--- OUTSIDE RECORDS SUMMARY | ~2019-12-09 | XMS | Encounter Summary ---
Demographics + + + | Address | [address] [address] | | | [place] [address] | + + + | Home Phone [...] | | | | [place] [address] | | + + + + + | Eomry Larios | ECON | Unknown | | + + + + + Care Team Providers + +------+ + | Care Billet Inspector Name | Role | Phone | [...] | | | 2018 | | [address] [facility] | [address] | | | | | [facility] | [place] | | | | | [address] | [id number] | | | | | [phone] | | | +--------+ + + + [...] [place] | | | | | | [address] | | | | | | | | +--------+ + + + + | 12/17/ | Office | Oncology | Yancy Clifford MD | | | 2019 | Visit | | [address] | | | | | | [place] | | | | | | [address] | | | | | | | | +--------+ + + + + | 12/17/ | Appointment | Infusion Therapy | Yancy Clifford MD | | | 2019 | | | [address] | | | | | | [place] | | | | | | [address] | | | | | | | | +--------+ + + + + | 01/07/ | Appointment | Infusion Therapy | Yancy Clifford MD | | | 2019 | | | [address] | | | | | | [place] | | | | | | [address] | | | | | | | | +--------+ + + + + | 01/07/ | Office | Oncology | Yancy Clifford MD | | | 2019 | Visit | | [address] | | | | | | [place] | | | | | | [address] | | | | | | | | +--------+ + + + + | 01/07/ | Appointment | Infusion Therapy | Yancy Clifford MD | | | 2019 | | | [address] | | | | | | [place] | | | | | | [address] | | | | | | | [...] | | | | using the MDRD IDOH | | | | | | traceable [...]
--- OUTSIDE RECORDS SUMMARY | ~2019-12-09 | XMS | Encounter Summary ---
Demographics + + + | Address | [address] [facility] [address] [address] | | | [place] [address] | + + + | Home Phone | | + + + | Preferred Language | Unknown | + + + | Marital Status | | + + + | Presybeterian Affiliation | Unknown | + + + | Race | Unknown | + + + | Ethnic Group | Unknown | + + + Author + + + | Author | [facility] | | | and [place] | + + + | Organization | [facility] | | | [...] | | | | [place] [address] | | + + + + + | Emory Larios | ECON | Unknown | | + + + + + Care Team Providers + +------+ + | Care Gis Physical Scientist Name | Role | Phone | + +------+ + | Shannan Deng | PCP | | + +------+ + Encounter Details +--------+ + + + + | Date | Type | Department | Care Team | Description | +--------+ + + + + | 08/19/ | Orders Only | [facility] | Yancy Clifford MD | | | 2017 | | INFUSION SUPPORT | [address] | | | | | SERVICES [address] | [place], [place] | | | | | [address] [place] | [address] | | | | | [address] [place] | | | | | | [address] | | | | | | [phone] | | | +--------+ + + + [...] Filed: 08/19/1848 Encounter Date: 08/19/2018 Status: Signed Wheel Assembler: Bhakti Godfrey RN (Registered Nurse) Port accessed. [...] [place] | | | | | | [address] | | | | | | | | +--------+ + + + + | 12/17/ | Appointment | Infusion Therapy | Yancy Clifford MD | | | 2019 | | | [address] | | | | | | [place] | | | | | | [address] | | | | | | | | +--------+ + + + + | 01/07/ | Appointment | Infusion Therapy | Yancy Clifford MD | | | 2019 | | | [address] | | | | | | [place] | | | | | | [address] | | | | | | | | +--------+ + + + + | 01/07/ | Office | Oncology | Yancy Clifford MD | | | 2019 | Visit | | [address] | | | | | | [place] | | | | | | [address] | | | | | | | | +--------+ + + + + | 01/07/ | Appointment | Infusion Therapy | Yancy Clifford MD | | | 2019 | | | [address] | | | | | | [place] | | | | | | [address] | | | | | | | [...]
--- OUTSIDE RECORDS SUMMARY | ~2019-12-09 | XMS | Encounter Summary ---
Demographics + + + | Address | [address] | | | [place] [address] | + + + | Home Phone [...] | | | | [place] [address] | | + + + + + | Emory Larios | ECON | Unknown | | + + + + + Care Team Providers + +------+ + | Care Jig Filler Name | Role | Phone | + +------+ + | Shannan Deng | PCP | | + +------+ + Encounter Details +--------+ + + + + | Date | Type | Department | Care Team | Description | +--------+ + + + + | 07/17/ | Orders Only | [facility] | Scott Boswell MD | Moderate persistent | | 2019 | | PULMONOLOGY [address] | [address] | asthma, | | | | [address] | [place], [place] | uncomplicated; | | | | [place], [place] | [address] | Malignant neoplasm | | | | [address] | | of left ovary (HCC) | | | | [phone] | | | +--------+ + + + [...] [place] | | | | | | [address] | | | | | | | | +--------+ + + + + | 12/17/ | Office | Oncology | Yancy Clifford MD | | | 2019 | Visit | | [address] | | | | | | [place] | | | | | | [address] | | | | | | | | +--------+ + + + + | 12/17/ | Appointment | Infusion Therapy | Yancy Clifford MD | | | 2019 | | | [address] | | | | | | [place] | | | | | | [address] | | | | | | | | +--------+ + + + + | 01/07/ | Appointment | Infusion Therapy | Yancy Clifford MD | | | 2019 | | | [address] | | | | | | [place] | | | | | | [address] | | | | | | | | +--------+ + + + + | 01/07/ | Office | Oncology | Yancy Clifford MD | | | 2019 | Visit | | [address] | | | | | | [place] | | | | | | [address] | | | | | | | | +--------+ + + + + | 01/07/ | Appointment | Infusion Therapy | Yancy Clifford MD | | | 2020 | | | [address] | | | | | | [place] | | | | | | [address] | | | | | | | [...] Routin | Moderate | Expected: | | [place] | | e | persistent asthma, | [...]
--- OUTSIDE RECORDS SUMMARY | ~2019-12-09 | XMS | Encounter Summary ---
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 | | | | [phone] | | (HCC); Pleural | | | [...] [place] | | | | | | [address] | | | | | | | | +--------+ + + + + | 12/17/ | Office | Oncology | Yancy Clifford MD | | | 2019 | Visit | | [address] | | | | | | [place] | | | | | | [address] | | | | | | | | +--------+ + + + + | 12/17/ | Appointment | Infusion Therapy | Yancy Clifford MD | | | 2019 | | | [address] | | | | | | [place] | | | | | | [address] | | | | | | | | +--------+ + + + + | 01/07/ | Appointment | Infusion Therapy | Yancy Clifford MD | | | 2019 | | | [address] | | | | | | [place] | | | | | | [address] | | | | | | | | +--------+ + + + + | 01/07/ | Office | Oncology | Yancy Clifford MD | | | 2019 | Visit | | [address] | | | | | | [place] | | | | | | [address] | | | | | | | | +--------+ + + + + | 01/07/ | Appointment | Infusion Therapy | Yancy Clifford MD | | | 2020 | | | [address] | | | | | | [place] | | | | | | [address] | | | | | | | [...] [place] | | | | | | [address] | | | | + + + + + + + + | Specimen | + + | | + + + + + + + | Performing | Address | City/State/Zipcode | Phone Number | | Organization | | | | + + + + + | REFERENCE LAB | [address] [facility] | [place] [address] | [phone] | | [facility] | Blvd. | | | | LABORATORY | | | | + + + + + | REFERENCE LAB | [address] [facility] | [place] [address] | | | [facility] | Blvd. | | | [...] LAB | | | | performed at [facility];[address] | | [facility] | | | | [facility] | | LABORATORY | | | | Blvd;[place] [address] | | | | | | | | | | + + + + + + + + | Specimen | + + | | + + + + + + + | Performing | Address | City/State/Zipcode | Phone Number | | Organization | | | | + + + + + | REFERENCE LAB | [address] [place] [address] | [place] [address] | [phone] | | [facility] | Blvd. | | | | LABORATORY | | | | + + + + + | REFERENCE LAB | [address] [place] [address] | [place] [address] | | | [facility] | Blvd. | [...] | | | urine | performed at [facility];[address] | | [facility] | | | | [facility] | | LABORATORY | | | | Blvd;[place] [address] | | | | | | | | | | + + + + + + + + | Specimen | + + | | + + + + + + + | Performing | Address | City/State/Zipcode | Phone Number | | Organization | | | | + + + + + | REFERENCE LAB | [address] [place] [address] | [place] [address] | [phone] | | [facility] | Blvd. | | | | LABORATORY | | | | + + + + + | REFERENCE LAB | [address] [place] [address] | [place] [address] | | | [facility] | Blvd. | [...] - 1.030 | REFERENCE | | | [place], | | | LAB | | | [...] REFERENCE | | | | Performed at [facility], [address] | | LAB | | | | [address] | | [facility] | | | | [address] | | LABORATORY | | | | [address] | | | | + + + + + + + + | Specimen | + + | | + + + + + + + | Performing | Address | City/State/Zipcode | Phone Number | | Organization | | | | + + + + + | REFERENCE LAB | [address] [place] [address] | [place] [address] | [phone] | | [facility] | Blvd. | | | | LABORATORY | | | | + + + + + | REFERENCE LAB | [address] [place] [address] | [place] [address] | | | [facility] | Blvd. | [...] | | | RATIO,URINE | performed at [facility];[address] | | LAB | | | | [place] | | [facility] | | | | Blvd;[place] [address] | | LABORATORY | | + + + + + + + + | Specimen | + + | Urine | + + + + + + + | Performing | Address | City/State/Zipcode | Phone Number | | Organization | | | | + + + + + | REFERENCE LAB | [address] [place] [address] | [place] [address] | [phone] | | [facility] | Blvd. | | | | LABORATORY | | | | + + + + + | REFERENCE LAB | [address] [place] [address] | [place] [address] | | | [facility] | Blvd. | [...] LAB | | | | Performed at [facility], [address] | | [facility] | | | | [address] | | LABORATORY | | | | [address], [place] | | | | | | [address] | | | | + + + + + + + + | Specimen | + + | | + + + + + + + | Performing | Address | City/State/Zipcode | Phone Number | | Organization | | | | + + + + + | REFERENCE LAB | [address] [facility] | [place] [address] | [phone] | | [facility] | Blvd. | | | | LABORATORY | | | | + + + + + | REFERENCE LAB | [address] [facility] | [place] [address] | | | [facility] | Blvd. | [...] LAB | | | | performed at [facility];[address] | | [facility] | | | | [facility] | | LABORATORY | | | | Blvd;[place] [address] | | | | | | | | | | + + + + + + + + | Specimen | + + | | + + + + + + + | Performing | Address | City/State/Zipcode | Phone Number | | Organization | | | | + + + + + | REFERENCE LAB | [address] [facility] | [place] [address] | [phone] | | [facility] | Blvd. | | | | LABORATORY | | | | + + + + + | REFERENCE LAB | [address] [facility] | [place] [address] | | | [facility] | Blvd. | [...] | | | urine | performed at [facility];[address] | | [facility] | | | | [place] | | LABORATORY | | | | Blvd;[place] [address] | | | | | | | | | | + + + + + + + + | Specimen | + + | | + + + + + + + | Performing | Address | City/State/Zipcode | Phone Number | | Organization | | | | + + + + + | REFERENCE LAB | [address] [facility] | [place] [address] | [phone] | | [facility] | Blvd. | | | | LABORATORY | | | | + + + + + | REFERENCE LAB | [address] [facility] | [place] [address] | | | [facility] | Blvd. | [...] | | | RATIO,URINE | performed at [facility];[address] | | LAB | | | | [place] | | [facility] | | | | Blvd;[place] [address] | | LABORATORY | | + + + + + + + + | Specimen | + + | | + + + + + + + | Performing | Address | City/State/Zipcode | Phone Number | | Organization | | | | + + + + + | REFERENCE LAB | [address] [place] [address] | [place] [address] | [phone] | | [facility] | Blvd. | | | | LABORATORY | | | | + + + + + | REFERENCE LAB | [address] [place] [address] | [place] [address] | | | [facility] | Blvd. | [...] | [facility] | | | | [address], [place], [place] | | LABORATORY | | | | [address] | | | | + + + + + + + + | Specimen | + + | Blood | + + + + + + + | Performing | Address | City/State/Zipcode | Phone Number | | Organization | | | | + + + + + | REFERENCE LAB | [address] [place] [address] | [place] [address] | [phone] | | [facility] | Blvd. | | | | LABORATORY | | | | + + + + + | REFERENCE LAB | [address] [place] [address] | [place] [address] | | | [facility] | Blvd. | [...] [facility] | | | | Blvd;[place] [address] | | LABORATORY | | + + + + + + | K | 4.3Comment: Testing | 3.5 - 4.9 | REFERENCE | | | | performed at [facility];[address] | mmol/L | LAB | | | | [place] | | [facility] | | | | Blvd;[place] [address] | | LABORATORY | | + + + + + + | Cl | 105Comment: Testing | 99 - 109 mmol/L | REFERENCE | | | | performed at [facility];[address] | | LAB | | | | [place] | | [facility] | | | | Blvd;[place] [address] | | LABORATORY | | + + + + + + | CO2 | 26Comment: Testing | 23 - 32 mmol/L | REFERENCE | | | | Performed at [facility], [address] | | LAB | | | | [address] | | [facility] | | | | [address], [place] | | LABORATORY | | | | [address] | | | | + + + + + + | Anion Gap | 11Comment: Testing | 5 - 20 mmol/L | REFERENCE | | | | performed at [facility];[address] | | LAB | | | | [place] | | [facility] | | | | Blvd;[place] [address] | | LABORATORY | | + + [...] [place] | | | | | | [address] | | | | + + + + + + + + | Specimen | + + | Blood | + + + + + + + | Performing | Address | City/State/Zipcode | Phone Number | | Organization | | | | + + + + + | REFERENCE LAB | [address] [place] [address] | [place] [address] | [phone] | | [facility] | Blvd. | | | | LABORATORY | | | | + + + + + | REFERENCE LAB | [address] [place] [address] | [place] [address] | | | [facility] | Blvd. | [...] - 1.030 | REFERENCE | | | [place], | | | LAB | | | [...] | | LABORATORY | | | | [address] | | | | + + + + + + + + | Specimen | + + | Urine | + + + + + + + | Performing | Address | City/State/Zipcode | Phone Number | | Organization | | | | + + + + + | REFERENCE LAB | [address] [facility] | [place] [address] | [phone] | | [facility] | Blvd. | | | | LABORATORY | | | | + + + + + | REFERENCE LAB | [address] [facility] | [place] [address] | | | [facility] | Blvd. | [...] Hospital | | | | | | Blvd;[place] [address] | | | | | | | | | | + + + + + + + + | Specimen | + + | Blood | + + + + + + + | Performing | Address | City/State/Zipcode | Phone Number | | Organization | | | | + + + + + | REFERENCE LAB | [address] [place] [address] | [place] [address] | [phone] | | [facility] | Blvd. | | | | LABORATORY | | | | + + + + + | REFERENCE LAB | [address] [place] [address] | [place] [address] | | | [facility] | Blvd. | [...]
--- OUTSIDE RECORDS SUMMARY | ~2019-12-09 | XMS | Encounter Summary ---
Demographics + + + | Address | [address] | | | [place] [address] | + + + | Home Phone [...] | | | | [place] [address] | | + + + + + | Emory Larios | ECON | Unknown | | + + + + + Care Team Providers + +------+ + | Care Title Assistant Name | Role | Phone | [...] | | | Ascites, | [place], | [place] [address] | | | | | malignant | [place] [address] | Phone: | | | | | Procedures | Phone: | [phone] | | | | | [place] | [phone] | Fax: | | | | | BEVACIZUMAB | Fax: | [phone] | | | | | INJECTION, | [phone] | | | | | | 10 [...] + + | 10/15/ | Hospital | [facility] | Yancy Clifford MD | Malignant neoplasm | | 2019 | Encounter | HEMATOLOGY AND | [address] | of left ovary (HCC) | | | | ONCOLOGY INFUSIONS | [place] | (Primary Dx); | | | | [address] | [address] | Ascites, malignant | | | | [place]VE [place], [place] | | | | | | [address] | Ekta Kamara RN | | | | | [phone] | | | +--------+ + + + [...] prevent mouth sores: Keep your mouth clean. Browning your teeth with a soft-bristle toothbrush after [...] baking soda to clean your mouth. M wz0hbhghicrft salt ehx1yzcstnpp of baking soda in 1 quart of [...] begins to ooze Burning when you urinate Usgzyiz640.4F (38C) ordwain awadas directed by your healthcare provider Date Last Reviewed: 04/01/201619999113-3359 [employer]. [address] [place] [address], [place] [address]. All righ ts reserved. This information is [...] with [facility] DRAW in [facility] HO INFUSION SUPPORT SERVICES 2:15 PM: Office Visit Extended Appointment starts at 2:30 PM with Yancy Clifford MD in [facility] HEMATOLOGY AND ONCOLOGY 3:00 PM: Onc Infusion with JAZZY CHAIR 14 in [facility] HEMATOLOGY AND ONCOLOGY INFUSIONS Annabella Sanchez RN [...] [place] | | | | | | [address] | | | | | | | | +--------+ + + + + | 12/17/ | Office | Oncology | Yancy Clifford MD | | 2019 | Visit | | [address] | | | | | | [place] | | | | | | [address] | | | | | | | | +--------+ + + + + | 12/17/ | Appointment | Infusion Therapy | Yancy Clifford MD | | | 2019 | | | [address] | | | | | | [place] | | | | | | [address] | | | | | | | | +--------+ + + + + | 01/07/ | Appointment | Infusion Therapy | Yancy Clifford MD | | | 2019 | | | [address] | | | | | | [place] | | | | | | [address] | | | | | | | | +--------+ + + + + | 01/07/ | Office | Oncology | Yancy Clifford MD | | | 2019 | Visit | | [address] | | | | | | [place] | | | | | | [address] | | | | | | | | +--------+ + + + + | 01/07/ | Appointment | Infusion Therapy | Yancy Clifford MD | | | 2020 | | | [address] | | | | | | [place] | | | | | | [address] | | | | | | | [...] | | | | | Intracatheter, ONCE, [facility] 10/15/19 | | AM PST | [...]
--- OUTSIDE RECORDS SUMMARY | ~2019-12-09 | XMS | Encounter Summary ---
Demographics + + + | Address | [address] | | | [place] [address] | + + + | Home Phone [...] | | | | [place] [address] | | + + + + + | Emory Larios | ECON | Unknown | | + + + + + Care Team Providers + +------+ + | Care Instant Potato Processing Supervisor Name | Role | Phone | [...] 2019 | | [address] | Runner Worker | of left ovary (HCC); | | | | [place] | | Peritoneal | | | | [address] | | carcinomatosis | | | | [phone] | | (HCC); Pleural | | | [...] [place] | | | | | | [address] | | | | | | | | +--------+ + + + + | 12/17/ | Office | Oncology | Yancy Clfiford MD | | | 2019 | Visit | | [address] | | | | | | [place] | | | | | | [address] | | | | | | | | +--------+ + + + + | 12/17/ | Appointment | Infusion Therapy | Yancy Clifford MD | | | 2019 | | | [address] | | | | | | [place] | | | | | | [address] | | | | | | | | +--------+ + + + + | 01/07/ | Appointment | Infusion Therapy | Yancy Clifford MD | | | 2019 | | | [address] | | | | | | [place] | | | | | | [address] | | | | | | | | +--------+ + + + + | 01/07/ | Office | Oncology | Yancy Clifford MD | | | 2019 | Visit | | [address] | | | | | | [place] | | | | | | [address] | | | | | | | | +--------+ + + + + | 01/07/ | Appointment | Infusion Therapy | Yancy Clifford MD | | | 2020 | | | [address] | | | | | | [place] | | | | | | [address] | | | | | | | [...] | | | | | TC;[address] [facility] | | | | | | [facility];[place] [address] | | | | | | | | | | + + + + + + + + | Specimen | + + | Blood | + + + + + + + | Performing | Address | City/State/Zipcode | Phone Number | | Organization | | | | + + + + + | REFERENCE LAB | [address] | [place] [address] | [phone] | | [facility] | Blvd[address] | | | | LABORATORY | | | | + + + + + | REFERENCE LAB | [address] [facility] | [place] [address] | | | [facility] | Blvd. | [...]
--- OUTSIDE RECORDS SUMMARY | ~2019-12-09 | XMS | Encounter Summary ---
Demographics + + + | Address | [address] | | | [place] [address] | + + + | Home Phone | | + + + | Preferred Language | Unknown | + + + | Marital Status | | + + + | Mosque Affiliation | Unknown | + + + | Race | Unknown | + + + | Ethnic Group | Unknown | + + + Author + + + | Author | [facility] | | | and [place] | + + + | Organization | [facility] | | [...] | | | | [place] [address] | | + + + + + | Emory Larios | ECON | Unknown | | + + + + + Care Team Providers + +------+ + | Care Security Compliance Engineer Name | Role | Phone | + +------+ + PCP | Unavailable | + +------+ + Encounter Details +--------+ + + + + | Date | Type | Department | Care Team | Description | +--------+ + + + + | 06/05/ | Hospital | [facility] | Conversion | Encounter for | | 2019 | Encounter | [facility] [address] | Transaction, | antineoplastic | | | | [address] | Provider Unknown | chemotherapy; | | | | [place], [place] | [phone] | Malignant neoplasm | | | | [address] | | of left ovary (HCC); | | | | [phone] | Yancy Clifford MD [address] | | | | [address] | 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; | | | | | [phone] | Epistaxis | | | | | [...] | | | 2019 | | | [address] | | | | | | [place] | | | | | | [address] | | | | | | | | +--------+ + + + + | 12/17/ | Office | Oncology | Yancy Clifford MD | | | 2019 | Visit | | [address] | | | | | | [place] | | | | | | [address] | | | | | | | [...] [place] | | | | | | [address] | | | | | | | | +--------+ + + + + | 01/07/ | Office | Oncology | Yancy Clifford MD | | | 2019 | Visit | | [address] | | | | | | [place] | | | | | | [address] | | | | | | | | +--------+ + + + + | 01/07/ | Appointment | Infusion Therapy | Yancy Clifford MD | | | 2020 | | | [address] | | | | | | [place] | | | | | | [address] | | | | | | | [...]
--- OUTSIDE RECORDS SUMMARY | ~2019-12-09 | XMS | Encounter Summary ---
Demographics + + + | Address | [address] | | | [place] [address] | + + + | Home Phone [...] | | | | [place] [address] | | + + + + + | Emory Larios | ECON | Unknown | | + + + + + Care Team Providers + +------+ + | Care Distribution Engineering Technologist Name | Role | Phone | [...] | | Ascites, | [place], | [place] [address] | | | | | malignant | [place] [address] | Phone: | | | | | Procedures | Phone: | [phone] | | | | | [place] | [phone] | Fax: | | | | | BEVACIZUMAB | Fax: | [phone] | | | | | INJECTION, | [phone] | | | | | | 10 MG [id number] | | | | | | | - [place] | | | | | | | [...] + | 09/24/ | Hospital | [facility] | Yancy Clifford MD | Malignant neoplasm | | 2019 | Encounter | HEMATOLOGY AND | [address] | of left ovary (HCC) | | | | ONCOLOGY INFUSIONS | [place] | (Primary Dx); | | | | [address] | [address] | Ascites, malignant | | | | AVE [place], [place] | | | | | | [address] | | | | | | [phone] | | | +--------+ + + + [...] prevent mouth sores: Keep your mouth clean. Odon your teeth with a soft-bristle toothbrush after [...] baking soda to clean your mouth. M aq9wijmucktfq salt qaz2tvlqfidx of baking soda in 1 quart of [...] begins to ooze Burning when you urinate Iqnzoce924.4F (38C) tiffani pineda directed by your healthcare provider Date Last Reviewed: 04/01/201619995725-0095 [employer]. [address] [place] [address]. All righ ts reserved. This information is [...] for any concerns or questions. Discharged to [facility] with copy of labs and calendar [...] [place] | | | | | | [address] | | | | | | | | +--------+ + + + + | 12/17/ | Office | Oncology | Yancy Clifford MD | | | 2019 | Visit | | [address] | | | | | | [place] | | | | | | [address] | | | | | | | | +--------+ + + + + | 12/17/ | Appointment | Infusion Therapy | Yancy Clifford MD | | | 2019 | | | [address] | | | | | | [place] | | | | | | [address] | | | | | | | | +--------+ + + + + | 01/07/ | Appointment | Infusion Therapy | Yancy Clifford MD | | | 2019 | | | [address] | | | | | | [place] | | | | | | [address] | | | | | | | | +--------+ + + + + | 01/07/ | Office | Oncology | Yancy Clifford MD | | | 2019 | Visit | | [address] | | | | | | [place] | | | | | | [address] | | | | | | | | +--------+ + + + + | 01/07/ | Appointment | Infusion Therapy | Yancy Clifford MD | | | 2019 | | | [address] | | | | | | [place] | | | | | | [address] | | | | | | | [...]
--- OUTSIDE RECORDS SUMMARY | ~2019-12-09 | XMS | Encounter Summary ---
Demographics + + + | Address | [address] | | | [place] [address] | + + + | Home Phone [...] | | | | | [place] [address] | | + + + + + | Emory Larios | ECON | Unknown | | + + + + + Care Team Providers + +------+ + | Care User Support Analyst Name | Role | Phone | + +------+ + PCP | Unavailable | + +------+ + Encounter Details +--------+ + + + + | Date | Type | Department | Care Team | Description | +--------+ + + + + | 07/09/ | Abstract | [facility] | Patricia Sanchez, | | | 2018 | | HEMATOLOGY AND | Vice President Of Talent Acquisition | | | | | ONCOLOGY [address] | | | | | | [place] | | | | | | [address] | | | | | | [phone] | | | +--------+ + + + [...] [place] | | | | | | [address] | | | | | | | | +--------+ + + + + | 12/17/ | Office | Oncology | Yancy Clifford MD | | | 2019 | Visit | | [address] | | | | | | [place] | | | | | | [address] | | | | | | | | +--------+ + + + + | 12/17/ | Appointment | Infusion Therapy | Yancy Cliffodr MD | | | 2019 | | | [address] | | | | | | [place] | | | | | | [address] | | | | | | | | +--------+ + + + + | 01/07/ | Appointment | Infusion Therapy | Yancy Clifford MD | | | 2019 | | | [address] | | | | | | [place] | | | | | | [address] | | | | | | | | +--------+ + + + + | 01/07/ | Office | Oncology | Yancy Clifford MD | | | 2019 | Visit | | [address] | | | | | | [place] | | | | | | [address] | | | | | | | | +--------+ + + + + | 01/07/ | Appointment | Infusion Therapy | Yancy Clifford MD | | | 2019 | | | [address] | | | | | | [place] | | | | | | [address] | | | | | | | | +--------+ + + + + documented as of this encounter Visit Diagnoses Not on filedocumented in this encounter"
--- OUTSIDE RECORDS SUMMARY | ~2019-12-09 | XMS | Encounter Summary ---
Demographics + + + | Address | [address] | | | [place] [address] | + + + | Home Phone [...] | | | | [place] [address] | | + + + + + | Emory Larios | ECON | Unknown | | + + + + + Care Team Providers + +------+ + | Care Furnace Fitter Name | Role | Phone | + +------+ + | Shannan Deng | PCP | | + +------+ + Encounter Details +--------+ + + + + | Date | Type | Department | Care Team | Description | +--------+ + + + + | 07/17/ | Orders Only | [facility] | Scott Boswell MD | Moderate persistent | | 2019 | | PULMONOLOGY [address] | [address] | asthma, | | | | [address] | [place], [place] | uncomplicated; | | | | [place], [place] | [address] | Malignant neoplasm | | | | [address] | | of left ovary (HCC) | | | | [phone] | | | +--------+ + + + [...] [place] | | | | | | [address] | | | | | | | | +--------+ + + + + | 12/17/ | Office | Oncology | Yancy Clifford MD | | | 2019 | Visit | | [address] | | | | | | [place] | | | | | | [address] | | | | | | | | +--------+ + + + + | 12/17/ | Appointment | Infusion Therapy | Yancy Clifford MD | | | 2019 | | | [address] | | | | | | [place] | | | | | | [address] | | | | | | | | +--------+ + + + + | 01/07/ | Appointment | Infusion Therapy | Yancy Clifford MD | | | 2019 | | | [address] | | | | | | [place] | | | | | | [address] | | | | | | | | +--------+ + + + + | 01/07/ | Office | Oncology | Yancy Clifford MD | | | 2019 | Visit | | [address] | | | | | | [place] | | | | | | [address] | | | | | | | | +--------+ + + + + | 01/07/ | Appointment | Infusion Therapy | Yancy Clifford MD | | | 2020 | | | [address] | | | | | | [place] | | | | | | [address] | | | | | | | [...] Routin | Moderate | Expected: | | [place] | | e | persistent asthma, | [...]
--- OUTSIDE RECORDS SUMMARY | ~2019-12-09 | XMS | Encounter Summary ---
Demographics + + + | Address | [address] | | | [place] [address] | + + + | Home Phone [...] | | | | [place] [address] | | + + + + + | Emory Larios | ECON | Unknown | | + + + + + Care Team Providers + +------+ + | Care Associate Editor Name | Role | Phone | + +------+ + | Shannan Deng | PCP | | + +------+ + Encounter Details +--------+ + + + + | Date | Type | Department | Care Team | Description | +--------+ + + + + | 12/25/ | Orders Only | [facility] | Yancy Clifford MD | | | 2019 | | HEMATOLOGY AND | [address] | | | | | ONCOLOGY [address] | [place] | | [address] | [address] | | | | | [place] | | | | | | [address] | | | | | | [phone] | | | +--------+ + + + [...] [place] | | | | | | [address] | | | | | | | | +--------+ + + + + | 12/17/ | Office | Oncology | Yancy Clifford MD | | | 2019 | Visit | | [address] | | | | | | [place] | | | | | | [address] | | | | | | | | +--------+ + + + + | 12/17/ | Appointment | Infusion Therapy | Yancy Clifford MD | | | 2019 | | | [address] | | | | | | [place] | | | | | | [address] | | | | | | | | +--------+ + + + + | 01/07/ | Appointment | Infusion Therapy | Yancy Clifford MD | | | 2019 | | | [address] | | | | | | [place] | | | | | | [address] | | | | | | | | +--------+ + + + + | 01/07/ | Office | Oncology | Yancy Clifford MD | | | 2019 | Visit | | [address] | | | | | | [place] | | | | | | [address] | | | | | | | | +--------+ + + + + | 01/07/ | Appointment | Infusion Therapy | Yancy Clifford MD | | | 2019 | | | [address] | | | | | | [place] | | | | | | [address] | | | | | | | | +--------+ + + + + documented as of this encounter Visit Diagnoses Not on filedocumented in this encounter"
--- OUTSIDE RECORDS SUMMARY | ~2019-12-09 | XMS | Encounter Summary ---
Demographics + + + | Address | [address] | | | [place] [address] | + + + | Home Phone [...] | | | | [place] [address] | | + + + + + | Emory Larios | EBENEZER | Unknown | | + + + + + Care Team Providers + +------+ + | Care Motor Equipment Commanding Officer Name | Role | Phone [...] + + | 09/03/ | Office | [facility] | Yancy Clifford MD | Malignant neoplasm | | 2019 | Visit | HEMATOLOGY AND | [address] | of left ovary (HCC) | | | | ONCOLOGY [address] | [place] | (Primary Dx) | | | | [address] | [address] | | | | | [place] | | | | | | [address] | Jennyfer Calvert | | | | | [phone] | M, 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 [facility] Hematology & Oncology Oncology Progress Note [...] 05/2017 Genetic Testing Negative genetic testing through [facility]. 07/2017 Surgery S/p debulking surgery. Final pathology [...] 35 U/mL Final Comment: [facility] ([facility]) ADVIA [email or web address] IMMUNOASSAY METHOD IS USED. RESULTS OBTAINED WITH DIFFERENT ASSAY METHODS OR KITS CANNOT BE USED INTERCHANGEABLY. Testing performed at [facility];[address] [facility];[place] [address] Ct Chest Abdomen Pelvis W Contrast Result [...] and coordination of care. CIERRA Hartley, MIKE [facility] Hematology Oncology 09/03/2019 Portions of this [...] [place] | | | | | | [address] | | | | | | | | +--------+ + + + + | 12/17/ | Office | Oncology | Yancy Clifford MD | | | 2019 | Visit | | [address] | | | | | | [place] | | | | | | [address] | | | | | | | | +--------+ + + + + | 12/17/ | Appointment | Infusion Therapy | Yancy Clifford MD | | | 2019 | | | [address] | | | | | | [place] | | | | | | [address] | | | | | | | | +--------+ + + + + | 01/07/ | Appointment | Infusion Therapy | Yancy Clifford MD | | | 2019 | | | [address] | | | | | | [place] | | | | | | [address] | | | | | | | | +--------+ + + + + | 01/07/ | Office | Oncology | Yancy Clifford MD | | | 2019 | Visit | | [address] | | | | | | [place] | | | | | | [address] | | | | | | | | +--------+ + + + + | 01/07/ | Appointment | Infusion Therapy | Yancy Clifford MD | | | 2020 | | | [address] | | | | | | [place] | | | | | | [address] | | | | | | | | +--------+ + + + + documented as of this encounter Visit Diagnoses + + | Diagnosis | + + | 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
--- OUTSIDE RECORDS SUMMARY | ~2019-12-09 | XMS | Encounter Summary ---
Demographics + + + | Address | [address] | | | [place] [address] | + + + | Home Phone [...] | | | | | [place] [address] | | + + + + + | Emory Larios | ECON | Unknown | | + + + + + Care Team Providers + +------+ + | Care Water Quality Tester Name | Role | Phone | + +------+ + PCP | Unavailable | + +------+ + Encounter Details +--------+ + + + + | Date | Type | Department | Care Team | Description | +--------+ + + + + | 06/29/ | Abstract | [facility] | Adriana Velasco | Malignant neoplasm | | 2019 | | HEMATOLOGY AND | A, SORTER LUMBER STRAIGHTENER | of left ovary (HCC); | | | | ONCOLOGY [address] | | Ascites, malignant | | | | [address] | | | | | | [place] | | | | | | [address] | | | | | | [phone] | | | +--------+ + + + [...] [place] | | | | | | [address] | | | | | | | | +--------+ + + + + | 12/17/ | Office | Oncology | Yancy Clifford MD | | | 2019 | Visit | | [address] | | | | | | [place] | | | | | | [address] | | | | | | | | +--------+ + + + + | 12/17/ | Appointment | Infusion Therapy | Yancy Clifford MD | | | 2019 | | | [address] | | | | | | [place] | | | | | | [address] | | | | | | | | +--------+ + + + + | 01/07/ | Appointment | Infusion Therapy | Yancy Clifford MD | | | 2019 | | | [address] | | | | | | [place] | | | | | | [address] | | | | | | | | +--------+ + + + + | 01/07/ | Office | Oncology | Yancy Clifford MD | | | 2019 | Visit | | [address] | | | | | | [place] | | | | | | [address] | | | | | | | | +--------+ + + + + | 01/07/ | Appointment | Infusion Therapy | Yancy Clifford MD | | | 2019 | | | [address] | | | | | | [place] | | | | | | [address] | | | | | | | | +--------+ + + + + documented as of this encounter Visit Diagnoses + + | Diagnosis | + + | Malignant neoplasm of left ovary (HCC) Malignant neoplasm of ovary | + + | Ascites, malignant Malignant ascites | + + documented in this encounter
--- OUTSIDE RECORDS SUMMARY | ~2019-12-09 | XMS | Encounter Summary ---
Demographics + + + | Address | [address] | | | [place] [address] | + + + | Home Phone | | + + + | Preferred Language | Unknown | + + + | Marital Status | | + + + | Christian Affiliation | Unknown | + + + [...] | | | | [place] [address] | | + + + + + | Emory Larios | ECON | Unknown | | + + + + + Care Team Providers + +------+ + | Care Blasting Worker Name | Role | Phone | [...] Closed | | Radiology | Diagnoses | [place], | [facility] [address] | | | | | Malignant | Jennyfer M, | [address] | | | | | neoplasm of | P[address] UP HAND [address] | [place], [place] | | | | | left ovary | [address] | [address] | | | | | (HCC) | AVE | Phone: | | | | | Procedures | [place], | [phone] | | | | | CT Chest | [place] [address] | Fax: | | | | | Abdomen | Phone: | [phone] | | | | | Pelvis w | [phone] | | | | | | Contrast | Fax: | | | | | | | [phone] | | +--------+--------+ + + + + Reason for Visit + + + | Reason | Comments | + + + | Follow-up | Malignant neoplasm of left ovary | + + + Encounter Details +--------+---------+ + + + | Date | Type | Department | Care Team | Description | +--------+---------+ + + + | 10/15/ | Office | [facility] | Yancy Clifford MD | Malignant neoplasm | | 2019 | Visit | HEMATOLOGY AND | [address] | of left ovary (HCC) | | | | ONCOLOGY [address] | [place] | (Primary Dx) | | | | [address] | [address] | | | | | [place] | | | | | | [address] | Jennyfer Calvert | | | | | [phone] | CIERRA Lou [address] | | | | | [address] | | | | | | [place] [address] | | | | | | [phone] | | | | | | | [...] might be differ ent from the original. [facility] Oncology Progress Note [...] 05/2017 Genetic Testing Negative genetic testing through [facility]. 07/2017 Surgery S/p debulking surgery. Final pathology [...] file Gets together: Not on file Attends latter-day service: Not on file Active member of [...] 35 U/mL Final Comment: [facility] ([employer]) ADVIA Pharmacopeia[employer]UR IMMUNOASSAY METHOD IS USED. RESULTS OBTAINED WITH DIFFERENT ASSAY METHODS OR KITS CANNOT BE USED INTERCHANGEABLY. Testing performed at [facility];[address] [place] [address];[place] [address] Color, UA 10/15/2019 YELLOW Final Clarity, UA 10/15/2019 HAZY Final Specific Aubrey, Urine 10/15/2019 1.025 1.002 - 1.030 Final [...] NEGATIVE NEG mg/dL Final Testing Performed at [facility], [address], [address], [place] [address] Na 10/15/2019 138 135 - 145 mmol/L Final Testing performed at [facility];[address] [place] [address];[place] [address] K 10/15/2019 4.3 3.5 - 4.9 mmol/L Final Testing performed at [facility];[address] [place] [address];[place] [address] Cl 10/15/2019 105 99 - 109 mmol/L Final Testing performed at [facility];[address] [place] [address];[place] [address] CO2 10/15/2019 26 23 - 32 mmol/L Final Testing Performed at [facility], [address], [address], [place] [address] Anion Gap 10/15/2019 11 5 - 20 mmol/L Final Testing performed at [facility];[address] [facility];[place] [address] Glucose 10/15/2019 145* 65 - 99 mg/dL [...] MDRD IDMS traceable equation. Testing Performed at [facility], [address], [address], [place] [address] WBC 10/15/2019 7.27 3.80 - 11.00 K/uL [...] - 0.10 K/uL Final Testing Performed at [facility], [address], [address], [place] [address] PRO/CREA RATIO,URINE 10/15/2019 0.508 Final Testing performed at [facility];[address] [place] [address];[place] [address] Creatinine, random urine 10/15/2019 120.0 mg/dL Final Comment: NO NORMAL RANGE ESTABLISHED Testing performed at [facility];[address] [place] [address];[place] [address] Protein, Urine 10/15/2019 61 mg/dL Final Comment: NO NORMAL RANGE ESTABLISHED Testing performed at [facility];[address] [place] [address];[place] [address] WBC UA 10/15/2019 NONE SEEN 0 - 5 /hpf Final RBC UA 10/15/2019 NONE SEEN 0 - 5 /hpf Final SQUAMOUS EPITHELIAL UA 10/15/2019 >100 /lpf Final BACTERIA UA 10/15/2019 NONE SEEN NONE Final MUCUS UA 10/15/2019 1+ Final CASTS 10/15/2019 0-2 /lpf Final Comment: COARSE GRANULAR Testing Performed at [facility], [address], [address], [place] [address] No results found. Assessment Ms. Ramila Baxter [...] and coordination of care. CIERRA Hartley, MIKE [facility] Hematology Oncology 10/15/2019 Portions of this [...] [place] | | | | | | [address] | | | | | | | | +--------+ + + + + | 12/17/ | Office | Oncology | Yancy Clifford MD | | | 2019 | Visit | | [address] | | | | | | [place] | | | | | | [address] | | | | | | | | +--------+ + + + + | 12/17/ | Appointment | Infusion Therapy | Yancy Clifford MD | | | 2019 | | | [address] | | | | | | [place] | | | | | | [address] | | | | | | | | +--------+ + + + + | 01/07/ | Appointment | Infusion Therapy | Yancy Clifford MD | | | 2019 | | | [address] | | | | | | [place] | | | | | | [address] | | | | | | | | +--------+ + + + + | 01/07/ | Office | Oncology | Yancy Clifford MD | | | 2019 | Visit | | [address] | | | | | | [place] | | | | | | [address] | | | | | | | | +--------+ + + + + | 01/07/ | Appointment | Infusion Therapy | Yancy Clifford MD | | | 2019 | | | [address] | | | | | | [place] | | | | | | [address] | | | | | | | [...]
--- OUTSIDE RECORDS SUMMARY | ~2019-12-09 | XMS | Encounter Summary ---
Demographics + + + | Address | [address] | | | [place] [address] | + + + | Home Phone | | + + + | Preferred Language | Unknown | + + + | Marital Status | | + + + | Hinduism Affiliation | Unknown | + + + | Race | Unknown | + + + | Ethnic Group | Unknown | + + + Author + + + | Author | [facility] | | | and [place] | + + + | Organization | [facility] | | | [...] | | | | [place] [address] | | + + + + + | Emory Larios | ECON | Unknown | | + + + + + Care Team Providers + +------+ + | Care Mission Support Specialist Name | Role | Phone | + +------+ + | Shannan Deng | PCP | | + +------+ + Encounter Details +--------+ + + + + | Date | Type | Department | Care Team | Description | +--------+ + + + + | 07/23/ | Orders Only | [facility] | CrockerYumiko pichardo, | Malignant neoplasm | | 2019 | | HEMATOLOGY AND | RN | of left ovary (HCC) | | | | ONCOLOGY [address] | | (Primary Dx) | | | | [address] | | | | | | [place] | | | | | | [address] | | | | | | [phone] | | | +--------+ + + + [...] [place] | | | | | | [address] | | | | | | | | +--------+ + + + + | 12/17/ | Office | Oncology | Yancy Clifford MD | | | 2019 | Visit | | [address] | | | | | | [place] | | | | | | [address] | | | | | | | | +--------+ + + + + | 12/17/ | Appointment | Infusion Therapy | Yancy Clifford MD | | | 2019 | | | [address] | | | | | | [place] | | | | | | [address] | | | | | | | | +--------+ + + + + | 01/07/ | Appointment | Infusion Therapy | Yancy Clifford MD | | | 2019 | | | [address] | | | | | | [place] | | | | | | [address] | | | | | | | | +--------+ + + + + | 01/07/ | Office | Oncology | Yancy Clifford MD | | | 2019 | Visit | | [address] | | | | | | [place] | | | | | | [address] | | | | | | | | +--------+ + + + + | 01/07/ | Appointment | Infusion Therapy | Yancy Clifford MD | | | 2020 | | | [address] | | | | | | [place] | | | | | | [address] | | | | | | | | +--------+ + + + + documented as of this encounter Visit Diagnoses + + | Diagnosis | + + | 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
--- OUTSIDE RECORDS SUMMARY | ~2019-12-09 | XMS | Encounter Summary ---
Demographics + + + | Address | [address] | | | [place] [address] | + + + | Home Phone [...] | | | | [place] [address] | | + + + + + | Emory Larios | ECON | Unknown | | + + + + + Care Team Providers + +------+ + | Care Hadoop Administrator Name | Role | Phone | [...] | | SERVICES [address] | [place] | (Primary Dx) | | | | [address] [place] | [phone] | | | | | [address] [facility] [place] [place] | | | | | | [address] | Sherrill Javed, | | | | | [phone] | RN | | +--------+ + + [...] | | | 2019 | | | [address] | | | | | | [place] | | | | | | [address] | | | | | | | | +--------+ + + + + | 12/17/ | Office | Oncology | Yancy Clifford MD | | | 2019 | Visit | | [address] | | | | | | [place] | | | | | | [address] | | | | | | | | +--------+ + + + + | 12/17/ | Appointment | Infusion Therapy | Yancy Clifford MD | | | 2019 | | | [address] | | | | | | [place] | | | | | | [address] | | | | | | | | +--------+ + + + + | 01/07/ | Appointment | Infusion Therapy | Yancy Clifford MD | | | 2019 | | | [address] | | | | | | [place] | | | | | | [address] | | | | | | | | +--------+ + + + + | 01/07/ | Office | Oncology | Yancy Clifford MD | | | 2019 | Visit | | [address] | | | | | | [place] | | | | | | [address] | | | | | | | | +--------+ + + + + | 01/07/ | Appointment | Infusion Therapy | Yancy Clifford MD | | | 2019 | | | [address] | | | | | | [place] | | | | | | [address] | | | | | | | [...] [place] | | | | | | [address] | | | | + + + + + + + + | Specimen | + + | | + + + + + + + | Performing | Address | City/State/Zipcode | Phone Number | | Organization | | | | + + + + + | REFERENCE LAB | [address] [place], [place] [address] | [place] [address] | [phone] | | [facility] | Blvd[address] | | | | LABORATORY | | | | + + + + + | REFERENCE LAB | [address] | [place] [address] | | | [facility] | Blvd. | [...] LAB | | | | performed at [facility];[address] | | [facility] | | | | [place] | | LABORATORY | | | | Blvd;[place] [address] | | | | | | | | | | + + + + + + + + | Specimen | + + | | + + + + + + + | Performing | Address | City/State/Zipcode | Phone Number | | Organization | | | | + + + + + | REFERENCE LAB | [address] [facility] | [place] [address] | [phone] | | [facility] | Blvd. | | | | LABORATORY | | | | + + + + + | REFERENCE LAB | [address] [facility] | [place] [address] | | | [facility] | Blvd. | [...] | | | urine | performed at [facility];[address] | | [facility] | | | | [place] | | LABORATORY | | | | Blvd;[place] [address] | | | | | | | | | | + + + + + + + + | Specimen | + + | | + + + + + + + | Performing | Address | City/State/Zipcode | Phone Number | | Organization | | | | + + + + + | REFERENCE LAB | [address] [facility] | [place] [address] | [phone] | | [facility] | Blvd. | | | | LABORATORY | | | | + + + + + | REFERENCE LAB | [address] [facility] | [place] [address] | | | [facility] | Blvd. | [...] - 1.030 | REFERENCE | | | [place], | | | LAB | | | [...] REFERENCE | | | | Performed at [facility], [address] | | LAB | | | | [address] | | [facility] | | | | [place] | | LABORATORY | | | | [address] | | | | + + + + + + + + | Specimen | + + | | + + + + + + + | Performing | Address | City/State/Zipcode | Phone Number | | Organization | | | | + + + + + | REFERENCE LAB | [address] [place] [address] | [place] [address] | [phone] | | [facility] | Blvd. | | | | LABORATORY | | | | + + + + + | REFERENCE LAB | [address] [place] [address] | [place] [address] | | | [facility] | Blvd. | [...] | | | RATIO,URINE | performed at [facility];[address] | | LAB | | | | [facility] | | [facility] | | | | vd;[place] [address] | | LABORATORY | | + + + + + + + + | Specimen | + + | | + + + + + + + | Performing | Address | City/State/Zipcode | Phone Number | | Organization | | | | + + + + + | REFERENCE LAB | [address] [place] [address] | [place] [address] | [phone] | | [facility] | Blvd. | | | | LABORATORY | | | | + + + + + | REFERENCE LAB | [address] [place] [address] | [place] [address] | | | [facility] | Blvd. | [...] | | LABORATORY | | | | [address] | | | | + + + + + + + + | Specimen | + + | Blood | + + + + + + + | Performing | Address | City/State/Zipcode | Phone Number | | Organization | | | | + + + + + | REFERENCE LAB | [address] [place] [address] | [place] [address] | [phone] | | [facility] | Blvd. | | | | LABORATORY | | | | + + + + + | REFERENCE LAB | [address] [place] [address] | [place] [address] | | | [facility] | Blvd. | [...] | | | | | performed at [facility];[address] | | | | | | [facility] | | | | | | Blvd;[place] [address] | | | | | | | | | | + + + + + + + + | Specimen | + + | Blood | + + + + + + + | Performing | Address | City/State/Zipcode | Phone Number | | Organization | | | | + + + + + | REFERENCE LAB | [address] [facility] | [place] [address] | [phone] | | [facility] | Blvd. | | | | LABORATORY | | | | + + + + + | REFERENCE LAB | [address] | [place] [address] | | | [facility] | Blvd. | [...]
--- OUTSIDE RECORDS SUMMARY | ~2019-12-09 | XMS | Encounter Summary ---
Demographics + + + | Address | [address] | | | [place] [address] | + + + | Home Phone [...] | | | | [place] [address] | | + + + + + | Emory Larios | ECON | Unknown | | + + + + + Care Team Providers + +------+ + | Care Rd Project Manager Name | Role | Phone | [...] | | | (HCC) | AVE | [place] | | | | | Encounter | [place], | [address] | | | | | for | [place] [address] | Phone: | | | | | antineoplast | Phone: | [phone] | | | | | ic | [phone] | Fax: | | | | | chemotherapy | Fax: | [phone] | | | | | Peritoneal | [phone] | | | | | | | [...] + + | 08/13/ | Office | [facility] | Scott Boswell MD | Personal history of | | 2019 | Visit | PULMONOLOGY [address] | tobacco use, | | | | [address] | [place], [place] | presenting hazards | | | | [place], [place] | [address] | to health (Primary | | | | [address] | | Dx); Mild | | | | [phone] | | intermittent asthma, | | | [...] Boswell MD Pulmonary and Critical Care Medicine [facility] [address] [facility] , [place] [address] documented in this enco unter Plan of [...] [place] | | | | | | [address] | | | | | | | | +--------+ + + + + | 12/17/ | Office | Oncology | Yancy Clifford MD | | | 2019 | Visit | | [address] | | | | | | [place] | | | | | | [address] | | | | | | | | +--------+ + + + + | 12/17/ | Appointment | Infusion Therapy | Yancy Clifford MD | | | 2019 | | | [address] | | | | | | [place] | | | | | | [address] | | | | | | | | +--------+ + + + + | 01/07/ | Appointment | Infusion Therapy | Yancy Clifford MD | | | 2019 | | | [address] | | | | | | [place] | | | | | | [address] | | | | | | | | +--------+ + + + + | 01/07/ | Office | Oncology | Yancy Clifford MD | | | 2019 | Visit | | [address] | | | | | | [place] | | | | | | [address] | | | | | | | | +--------+ + + + + | 01/07/ | Appointment | Infusion Therapy | Yancy Clifford MD | | | 2019 | | | [address] | | | | | | [place] | | | | | | [address] | | | | | | | | +--------+ + + + + documented as of this encounter Visit Diagnoses + + | Diagnosis | + + | Personal history of tobacco use, presenting hazards to health - Primary | + + | Mild intermittent asthma, unspecified whether complicated | + + documented in this encounter"
--- OUTSIDE RECORDS SUMMARY | ~2019-12-09 | XMS | Clinical Summary ---
Demographics + + + | Address | [address] | | | [place] [address] | + + + | Home Phone [...] | | | | [place] [address] | | + + + + + | Emory Larios | ECON | Unknown | | + + + + + Care Team Providers + +------+ + | Care Assistant Professor Of Music Name | Role | Phone | + [...] neoplasm | | 2019 | | | Cuff Stitcher | of left ovary (HCC); | | [...] | | 2018 | | | M, Cuff Stitcher | of left ovary (HCC); | | [...] [place] | | | | | | [address] | | | | | | | | +--------+ + + + + | 12/17/ | Office | Oncology | Yancy Clifford MD | | | 2019 | Visit | | [address] | | | | | | [place] | | | | | | [address] | | | | | | | | +--------+ + + + + | 12/17/ | Appointment | Infusion Therapy | Yancy Clifford MD | | | 2019 | | | [address] | | | | | | [place] | | | | | | [address] | | | | | | | | +--------+ + + + + | 01/07/ | Appointment | Infusion Therapy | Yancy Clifford MD | | | 2019 | | | [address] | | | | | | [place] | | | | | | [address] | | | | | | | | +--------+ + + + + | 01/07/ | Office | Oncology | Yancy Clifford MD | | | 2019 | Visit | | [address] | | | | | | [place] | | | | | | [address] | | | | | | | | +--------+ + + + + | 01/07/ | Appointment | Infusion Therapy | Yancy Clifford MD | | | 2019 | | | [address] | | | | | | [place] | | | | | | [address] | | | | | | | [...] - 1.030 | REFERENCE | | | [place], | | | LAB | | | [...] | | | | Performed at [facility], [address] | | LAB | | | | [address] | | [facility] | | | | [address] | | LABORATORY | | | | [address] | | | | + + + + + + + + | Specimen | + + | | + + + + + + + | Performing | Address | City/State/Zipcode | Phone Number | | Organization | | | | + + + + + | REFERENCE LAB | [address] [place] [address] | [place] [address] | [phone] | | [facility] | Blvd. | | | | LABORATORY | | | | + + + + + | REFERENCE LAB | [address] [place] [address] | [place] [address] | | | [facility] | Blvd. | [...] [place] | | | | | | [address] | | | | + + + + + + + + | Specimen | + + | | + + + + + + + | Performing | Address | City/State/Zipcode | Phone Number | | Organization | | | | + + + + + | REFERENCE LAB | [address] [place], [place] [address]and[place] | [place] [address] | [phone] | | [facility] | Blvd. | | | | LABORATORY | | | | + + + + + | REFERENCE LAB | [address] [place], [place] [address]and[place] | [place] [address] | | | [facility] | Blvd. | [...] | | RATIO,URINE | performed at [facility];[address] | | LAB | | | | [facility] | | [facility] | | | | Blvd;[place] [address] | | LABORATORY | | + + + + + + + + | Specimen | + + | Urine | + + + + + + + | Performing | Address | City/State/Zipcode | Phone Number | | Organization | | | | + + + + + | REFERENCE LAB | [address] [place] [address] | [place] [address] | [phone] | | [facility] | Blvd. | | | | LABORATORY | | | | + + + + + | REFERENCE LAB | [address] [place] [address] | [place] [address] | | | [facility] | Blvd. | [...] | | | | performed at [facility];[address] | | [facility] | | | | [facility] | | LABORATORY | | | | Blvd;[place] [address] | | | | | | | | | | + + + + + + + + | Specimen | + + | | + + + + + + + | Performing | Address | City/State/Zipcode | Phone Number | | Organization | | | | + + + + + | REFERENCE LAB | [address] [place] [address] | [place] [address] | [phone] | | [facility] | Blvd. | | | | LABORATORY | | | | + + + + + | REFERENCE LAB | [address] [place] [address] | [place] [address] | | | [facility] | Blvd. | | | | LABORATORY | | | | + + + + + Creatinine, Urine, Random (11/27/2019 9:39 AM [facility])Only the most recent of 4 results [...] | | urine | performed at [facility];[address] | | [facility] | | | | [address] | | LABORATORY | | | | [place]vd;[place] [address] | | | | | | | | | | + + + + + + + + | Specimen | + + | | + + + + + + + | Performing | Address | City/State/Zipcode | Phone Number | | Organization | | | | + + + + + | REFERENCE LAB | [address] [facility] | [place] [address] | [phone] | | [facility] | Blvd. | | | | LABORATORY | | | | + + + + + | REFERENCE LAB | [address] | [place] [address] | | | [facility] | Blvd. | [...] | | | Estimate | Performed at [facility], [address] | | LAB | | | | [address] | | [facility] | | | | [address], [place] | | LABORATORY | | | | [address] | | | | + + + + + + + + | Specimen | + + | Blood | + + + + + + + | Performing | Address | City/State/Zipcode | Phone Number | | Organization | | | | + + + + + | REFERENCE LAB | [address] [place] [address] | [place] [address] | [phone] | | [facility] | Blvd. | | | | LABORATORY | | | | + + + + + | REFERENCE LAB | [address] [place] [address] | [place] [address] | | | [facility] | Blvd. | [...] [facility] | | | | Blvd;[place] [address] | | LABORATORY | | + + + + + + | K | 4.3Comment: Testing | 3.5 - 4.9 | REFERENCE | | | | performed at [facility];[address] | mmol/L | LAB | | | | [place] | | [facility] | | | | Blvd;[place] [address] | | LABORATORY | | + + + + + + | Cl | 106Comment: Testing | 99 - 109 mmol/L | REFERENCE | | | | performed at [facility];[address] | | LAB | | | | [place] | | [facility] | | | | Blvd;[place] [address] | | LABORATORY | | + + + + + + | CO2 | 27Comment: Testing | 23 - 32 mmol/L | REFERENCE | | | | Performed at [facility], [address] | | LAB | | | | [address] | | [facility] | | | | [address], [place] | | LABORATORY | | | | [address] | | | | + + + + + + | Anion Gap | 9Comment: Testing | 5 - 20 mmol/L | REFERENCE | | | | performed at [facility];[address] | | LAB | | | | [place] | | [facility] | | | | Blvd;[place] [address] | | LABORATORY | | + + [...] | | | | | [address], [place] | | | | | | [address] | | | | + + + + + + + + | Specimen | + + | Blood | + + + + + + + | Performing | Address | City/State/Zipcode | Phone Number | | Organization | | | | + + + + + | REFERENCE LAB | [address] [place] [address] | [place] [address] | [phone] | | [facility] | Blvd. | | | | LABORATORY | | | | + + + + + | REFERENCE LAB | [address] [place] [address] | [place] [address] | | | [facility] | Blvd. | [...] REFERENCE | | | | [facility] [employer] | | LAB | | | | [facility] | | [facility] | | | | [...] | | | | | TCL;[address] | | | | | | Bl;[place] [address] | | | | | | | | | | + + + + + + + + | Specimen | + + | Blood | + + + + + + + | Performing | Address | City/State/Zipcode | Phone Number | | Organization | | | | + + + + + | REFERENCE LAB | [address] [place] [address] | [place] [address] | [phone] | | [facility] | Blvd. | | | | LABORATORY | | | | + + + + + | REFERENCE LAB | [address] [place] [address] | [place] [address] | | | [facility] | Blvd. | | | | [...] +--------+ +---------+--------+ | MEDICARE | MEDICA | [id number] | 05/02/20 | [phone] | | Medica | | | RE | | 17-Pre | 5 | | re | | | PART A | | sent | | | | | | AND B | | | | | | + +--------+ +--------+ +---------+--------+ | COORDINATED CARE | COORDI | [id number] | 04/01/20 | | | Medica | [...] +---------+--------+ | MEDICAID [place] | MEDICA | [id number] | 07/04/20 | [phone] | | Medica [...] Person | Self [birth year] | [address] | | | al/Fam | | 1959 | | [place], | | | ever | | | 5 (Home) | [place] [address] | + +--------+ +--------+ + + | Ramila Lopez | Person | Self | [birth year] | [address] | | | al/Fam | | 1959 | [phone] | [place] [address] [place], | | | ever | | | 6 (Home) | [place] [address] | + +--------+ +--------+ + + Advance Directives + + + + + | Type | Date Recorded | Patient | Explanation | | | | Fire Apparatus Sprinkler Inspector | | + + + + + | Power of | | | | | Brick Off Bearer | | | | + + + + + | Advance | | | | | Directive | | | | + + + + +
--- OUTSIDE RECORDS SUMMARY | ~2019-12-09 | XMS | Encounter Summary ---
Demographics + + + | Address | [address] | | | [place] [address] | + + + | Home Phone | | + + + | Preferred Language | Unknown | + + + | Marital Status | | + + + | Congregation Affiliation | Unknown | + + + [...] | | | | [place] [address] | | + + + + + | Emory Larios | ECON | Unknown | | + + + + + Care Team Providers + +------+ + | Care Electric Tripper Machine Operator Name | Role | Phone | + +------+ + PCP | Unavailable | + +------+ + Encounter Details +--------+ + + + + | Date | Type | Department | Care Team | Description | +--------+ + + + + | 01/01/ | Hospital | [facility] | Conversion | Constipation, | | 2019 | Encounter | [facility] [address] | Transaction, | unspecified | | | | [address] | Provider Unknown | constipation type; | | | | [place], [place] | [phone] | 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); | | | | [phone] | Yancy Clifford MD [address] | Pleural effusion, | | | | | [address] | malignant | | | | | [place] [address] | | | | | | [phone] | | | | | | | [...] [place] | | | | | | [address] | | | | | | | | +--------+ + + + + | 12/17/ | Office | Oncology | Yancy Clifford MD | | | 2019 | Visit | | [address] | | | | | | [place] | | | | | | [address] | | | | | | | | +--------+ + + + + | 12/17/ | Appointment | Infusion Therapy | Yancy Clifford MD | | | 2019 | | | [address] | | | | | | [place] | | | | | | [address] | | | | | | | | +--------+ + + + + | 01/07/ | Appointment | Infusion Therapy | Yancy Clifford MD | | | 2019 | | | [address] | | | | | | [place] | | | | | | [address] | | | | | | | | +--------+ + + + + | 01/07/ | Office | Oncology | Yancy Clifford MD | | | 2019 | Visit | | [address] | | | | | | [place] | | | | | | [address] | | | | | | | | +--------+ + + + + | 01/07/ | Appointment | Infusion Therapy | Yancy Clifford MD | | | 2019 | | | [address] | | | | | | [place] | | | | | | [address] | | | | | | | [...]
--- OUTSIDE RECORDS SUMMARY | ~2019-12-09 | XMS | Encounter Summary ---
Demographics + + + | Address | [address] | | | [place] [address] | + + + | Home Phone [...] | | | | [place] [address] | | + + + + + | Emory Larios | ECON | Unknown | | + + + + + Care Team Providers + +------+ + | Care Student Finance Specialist Name | Role | Phone | [...] Provider Unknown | | | | | [place], [place] | [phone] | | | | | [address] | | | | | | [phone] | | | +--------+ + + + [...] [place] | | | | | | [address] | | | | | | | | +--------+ + + + + | 12/17/ | Office | Oncology | Yancy Clifford MD | | | 2019 | Visit | | [address] | | | | | | [place] | | | | | | [address] | | | | | | | | +--------+ + + + + | 12/17/ | Appointment | Infusion Therapy | Yancy Clifford MD | | | 2019 | | | [address] | | | | | | [place] | | | | | | [address] | | | | | | | | +--------+ + + + + | 01/07/ | Appointment | Infusion Therapy | Yancy Clifford MD | | | 2019 | | | [address] | | | | | | [place] | | | | | | [address] | | | | | | | | +--------+ + + + + | 01/07/ | Office | Oncology | Yancy Clifford MD | | | 2019 | Visit | | [address] | | | | | | [place] | | | | | | [address] | | | | | | | | +--------+ + + + + | 01/07/ | Appointment | Infusion Therapy | Yancy Clifford MD | | | 2019 | | | [address] | | | | | | [place] | | | | | | [address] | | | | | | | | +--------+ + + + + documented as of this encounter Visit Diagnoses Not on filedocumented in this encounter"
--- OUTSIDE RECORDS SUMMARY | ~2019-12-09 | XMS | Encounter Summary ---
Demographics + + + | Address | [address] [facility] [address] [facility] [facility] [address] | | | [place] [address] | + + + | Home Phone [...] | | | | [place] [address] | | + + + + + | Emory Larios | EBENEZER | Unknown | | + + + + + Care Team Providers + +------+ + | Care Systems Software Engineer Name | Role | Phone | [...] | | | Ascites, | [place], | [place] [address] | | | | | malignant | [place] [address] | Phone: | | | | | Procedures | Phone: | [phone] | | | | | [place] | [phone] | Fax: | | | | | BEVACIZUMAB | Fax: | [phone] | | | | | INJECTION, | [phone] | | | | | | 10 [...] + + | 08/13/ | Hospital | [facility] | Yancy Clifford MD | Malignant neoplasm | | 2019 | Encounter | HEMATOLOGY AND | [address] | of left ovary (HCC) | | | | ONCOLOGY INFUSIONS | [place] | (Primary Dx); | | | | [address] | [address] | Ascites, malignant | | | | AVE [place] | | | | | | [address] | | | | | | [phone] | | | +--------+ + + + [...] vein. It is given by a health menagerie caretaker in a h ospital or clinic setting. Talk to your boat hand regarding the use of this medicine in children. Special care may be needed. What side effects may I notice from receiving this medicine? Side effects that you should report to your doctor or health menagerie caretaker as soon as p ossible: allergic reactions [...] attention (report to your doctor or health menagerie caretaker if they continue or are bothersome): back pain changes in taste decreased appetite dry skin nausea tiredness What may interact with this medicine? Interactions are not expected. What if I miss a dose? It is important not to miss your dose. Call your doctor or health menagerie caretaker if you are unable to keep an [...] should talk to your doctor or health menagerie caretaker if you are concerned about your fertility. [...] 1 of every 21 day Bevacizumab after HOSPITAL PRODUCT SPECIALIST visit. Distress screening complet ed today at patients appointment with a 0 score. Copy of labs and calender given with next s cheduled appointment listed below. 09/03/2019 0745 - IVT LAB DRAW with CATRACHITO BOO SS LAB DRAW in [facility] HO INFUSION SUPPORT SERVICES 09/03/2019 0830 - Office Visit Extended appointment starts at 0845 with CIERRA Hartley in [facility] HEMATOLOGY AND ONCOLOGY 09/03/2019 0915 - Onc Infusion with [facility] CHAIR 16 in [facility] HEMATOLOGY AND ONCOLOGY INFUSIONS documented in [...] [place] | | | | | | [address] | | | | | | | | +--------+ + + + + | 12/17/ | Office | Oncology | Yancy Clifford MD | | | 2019 | Visit | | [address] | | | | | | [place] | | | | | | [address] | | | | | | | | +--------+ + + + + | 12/17/ | Appointment | Infusion Therapy | Yancy Clifford MD | | | 2019 | | | [address] | | | | | | [place] | | | | | | [address] | | | | | | | | +--------+ + + + + | 01/07/ | Appointment | Infusion Therapy | Yancy Clifford MD | | | 2019 | | | [address] | | | | | | [place] | | | | | | [address] | | | | | | | | +--------+ + + + + | 01/07/ | Office | Oncology | Yancy Clifford MD | | | 2020 | Visit | | [address] | | | | | | [place] | | | | | | [address] | | | | | | | | +--------+ + + + + | 01/07/ | Appointment | Infusion Therapy | Yancy Clifford MD | | | 2020 | | | [address] | | | | | | [place] | | | | | | [address] | | | | | | | [...]
--- OUTSIDE RECORDS SUMMARY | ~2019-12-09 | XMS | Encounter Summary ---
Demographics + + + | Address | [address] | | | [place] [address] | + + + | Home Phone [...] | | | | [place] [address] | | + + + + + | Emory Larios | ECON | Unknown | | + + + + + Care Team Providers + +------+ + | Care Sexual Assault Response Coordinator Name | Role | Phone | [...] | | | Ascites, | [place], | [place] [address] | | | | | malignant | [place] [address] | Phone: | | | | | Procedures | Phone: | [phone] | | | | | [place] | [phone] | Fax: | | | | | BEVACIZ[facility] | Fax: | [phone] | | | | | INJECTION, | [phone] | | | | | | 10 MG [id number] | | | | | | | - [place] | | | | | | | [...] + + | 09/03/ | Hospital | [facility] | Yancy Clifford MD | Malignant neoplasm | | 2019 | Encounter | HEMATOLOGY AND | [address] | of left ovary (HCC) | | | | ONCOLOGY INFUSIONS | [place], [place] | (Primary Dx); | | | | [address] | [address] | Ascites, malignant | | | | AVE [place], [place] | | | | | | [address] | Bhakti Godfrey RN | | | | | [phone] | | | +--------+ + + + [...] vein. It is given by a health care partner in a h ospital or clinic setting. Talk to your photofinishing laboratory worker regarding the use of this medicine in children. Special care may be needed. What side effects may I notice from receiving this medicine? Side effects that you should report to your doctor or health care partner as soon as p ossible: allergic reactions [...] attention (report to your doctor or health care partner if they continue or are bothersome): back pain changes in taste decreased appetite dry skin nausea tiredness What may interact with this medicine? Interactions are not expected. What if I miss a dose? It is important not to miss your dose. Call your doctor or health care partner if you are unable to keep an [...] should talk to your doctor or health care partner if you are concerned about your fertility. [...] with CATRACHITO BOO SS LAB DRAW in [facility] INFUSION SUPPORT SERVICES 09/24/2019 1415 - Office Visit Extended appointment starts at 1430 with Yancy Clifford MD in [facility] HEMATOLOGY AND ONCOLOGY 09/24/2019 1500 - Onc Infusion with JAZZY CHAIR 15 in [facility] HEMATOLOGY AND ONCOLOGY INFUSIONS documented in this [...] [place] | | | | | | [address] | | | | | | | | +--------+ + + + + | 12/17/ | Office | Oncology | Yancy Clifford MD | | | 2019 | Visit | | [address] | | | | | | [place] | | | | | | [address] | | | | | | | | +--------+ + + + + | 12/17/ | Appointment | Infusion Therapy | Yancy Clifford MD | | | 2019 | | | [address] | | | | | | [place] | | | | | | [address] | | | | | | | | +--------+ + + + + | 01/07/ | Appointment | Infusion Therapy | Yancy Clifford MD | | | 2019 | | | [address] | | | | | | [place] | | | | | | [address] | | | | | | | | +--------+ + + + + | 01/07/ | Office | Oncology | Yancy Clifford MD | | | 2019 | Visit | | [address] | | | | | | [place] | | | | | | [address] | | | | | | | | +--------+ + + + + | 01/07/ | Appointment | Infusion Therapy | Yancy Clifford MD | | | 2019 | | | [address] | | | | | | [place] | | | | | | [address] | | | | | | | [...]
--- OUTSIDE RECORDS SUMMARY | ~2019-12-09 | XMS | Encounter Summary ---
Demographics + + + | Address | [address] | | | [place] [address] | + + + | Home Phone [...] | | | | | [place] [address] | | + + + + + | Emory Larios | ECON | Unknown | | + + + + + Care Team Providers + +------+ + | Care Coding Support Specialist Name | Role | Phone | + +------+ + PCP | Unavailable | + +------+ + Encounter Details +--------+ + + + + | Date | Type | Department | Care Team | Description | +--------+ + + + + | 01/15/ | Orders Only | [facility] | Yancy Clifford MD | | | 2019 | | HEMATOLOGY AND | [address] | | | | | ONCOLOGY INFUSIONS | [place], [place] | | | | | [address] | [address] | | | | | AVE [place], [place] | | | | | | [address] | | | | | | [phone] | | | +--------+ + + + [...] [place] | | | | | | [address] | | | | | | | | +--------+ + + + + | 12/17/ | Office | Oncology | Yancy Clifford MD | | | 2019 | Visit | | [address] | | | | | | [place] | | | | | | [address] | | | | | | | | +--------+ + + + + | 12/17/ | Appointment | Infusion Therapy | Yancy Clifford MD | | | 2019 | | | [address] | | | | | | [place] | | | | | | [address] | | | | | | | | +--------+ + + + + | 01/07/ | Appointment | Infusion Therapy | Yancy Clifford MD | | | 2019 | | | [address] | | | | | | [place] | | | | | | [address] | | | | | | | | +--------+ + + + + | 01/07/ | Office | Oncology | Yancy Clifford MD | | | 2019 | Visit | | [address] | | | | | | [place] | | | | | | [address] | | | | | | | | +--------+ + + + + | 01/07/ | Appointment | Infusion Therapy | Yancy Clifford MD | | | 2019 | | | [address] | | | | | | [place] | | | | | | [address] | | | | | | | [...] EXTERNAL | | | | [facility] [employer] | | LAB | | | | [...]
--- OUTSIDE RECORDS SUMMARY | ~2019-12-09 | XMS | Encounter Summary ---
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 [address] | [place], [place] | | | | | left ovary | [address] | [address] | | | | | (HCC) | AVE | Phone: | | | | | Procedures | [place], | [phone] | | | | | CT Chest | [place] [address] | Fax: | | | | | Abdomen | Phone: | [phone] | | | | | Pelvis w | [phone] | | | | | | Contrast | Fax: | | | | | | | [phone] | | +--------+--------+ + + + + Reason for Visit + + + | Reason | Comments | + + + | Follow-up | Malignant neoplasm of left ovary | + + + Encounter Details +--------+---------+ + + + | Date | Type | Department | Care Team | Description | +--------+---------+ + + + | 10/15/ | Office | [facility] | Yancy Clifford MD | Malignant neoplasm | | 2019 | Visit | HEMATOLOGY AND | [address] | of left ovary (HCC) | | | | ONCOLOGY [address] | [place] | (Primary Dx) | | | | [address] | [address] | | | | | [place] | | | | | | [address] | Jennyfer Calvert | | | | | [phone] | CIERRA Lou [address] | | | | | [address] | | | | | | [place] [address] | | | | | | [phone] | | | | | | | [...] might be differ ent from the original. [facility] Hematology & Oncology Oncology Progress Note [...] 05/2017 Genetic Testing Negative genetic testing through [facility]. 07/2017 Surgery S/p debulking surgery. Final pathology [...] file Gets together: Not on file Attends evangelical service: Not on file Active member of [...] 35 U/mL Final Comment: THE [facility] [employer] ADVIA [employer] IMMUNOASSAY METHOD IS USED. RESULTS OBTAINED WITH DIFFERENT ASSAY METHODS OR KITS CANNOT BE USED INTERCHANGEABLY. Testing performed at [facility];[address] [place] [address];[place] [address] Color, UA 10/15/2019 YELLOW Final Clarity, UA 10/15/2019 HAZY Final Specific [place], Urine 10/15/2019 1.025 1.002 - 1.030 Final [...] NEG mg/dL Final Testing Performed at [facility], [address], [address], [place] [address] Na 10/15/2019 138 135 - 145 mmol/L Final Testing performed at [facility];[address] [place] [address];[place] [address] K 10/15/2019 4.3 3.5 - 4.9 mmol/L Final Testing performed at [facility];[address] [place] [address];[place] [address] Cl 10/15/2019 105 99 - 109 mmol/L Final Testing performed at [facility];[address] [place] [address];[place] [address] CO2 10/15/2019 26 23 - 32 mmol/L Final Testing Performed at [facility], [address], [address], [place] [address] Anion Gap 10/15/2019 11 5 - 20 mmol/L Final Testing performed at [facility];[address] [facility];[place] [address] Glucose 10/15/2019 145* 65 - 99 mg/dL [...] IDMS traceable equation. Testing Performed at [facility], [address], [address], [place] [address] WBC 10/15/2019 7.27 3.80 - 11.00 K/uL [...] 0.10 K/uL Final Testing Performed at [facility], [address], [address], [place] [address] PRO/CREA RATIO,URINE 10/15/2019 0.508 Final Testing performed at [facility];[address] [place] [address];[place] [address] Creatinine, random urine 10/15/2019 120.0 mg/dL Final Comment: NO NORMAL RANGE ESTABLISHED Testing performed at [facility];[address] [place] [address];[place] [address] Protein, Urine 10/15/2019 61 mg/dL Final Comment: NO NORMAL RANGE ESTABLISHED Testing performed at [facility];[address] [place] [address];[place] [address] WBC UA 10/15/2019 NONE SEEN 0 - 5 /hpf Final RBC UA 10/15/2019 NONE SEEN 0 - 5 /hpf Final SQUAMOUS EPITHELIAL UA 10/15/2019 >100 /lpf Final BACTERIA UA 10/15/2019 NONE SEEN NONE Final MUCUS UA 10/15/2019 1+ Final CASTS 10/15/2019 0-2 /lpf Final Comment: COARSE GRANULAR Testing Performed at [facility], [address], [address], [place] [address] No results found. Assessment Ms. Ramila Baxter [...] and coordination of care. CIERRA Hartley, [facility] Hematology Oncology 10/15/2019 Portions of this [...] [place] | | | | | | [address] | | | | | | | | +--------+ + + + + | 12/17/ | Office | Oncology | Yancy Clifford MD | | | 2019 | Visit | | [address] | | | | | | [place] | | | | | | [address] | | | | | | | | +--------+ + + + + | 12/17/ | Appointment | Infusion Therapy | Yancy Clifford MD | | | 2019 | | | [address] | | | | | | [place] | | | | | | [address] | | | | | | | | +--------+ + + + + | 01/07/ | Appointment | Infusion Therapy | Yancy Clifford MD | | | 2019 | | | [address] | | | | | | [place] | | | | | | [address] | | | | | | | | +--------+ + + + + | 01/07/ | Office | Oncology | Yancy Clifford MD | | | 2019 | Visit | | [address] | | | | | | [place] | | | | | | [address] | | | | | | | | +--------+ + + + + | 01/07/ | Appointment | Infusion Therapy | Yancy Clifford MD | | | 2019 | | | [address] | | | | | | [place] | | | | | | [address] | | | | | | | [...]
--- OUTSIDE RECORDS SUMMARY | ~2019-12-09 | XMS | Encounter Summary ---
Demographics + + + | Address | [address] | | | [place] [address] | + + + | Home Phone [...] + + + + + | Jared Esaonrick | ECON | [address] | | | | | [place] [address] | | + + + + + | Emory Larios | ECON | Unknown | | + + + + + Care Team Providers + +------+ + | Care Lawn Mower Operator Name | Role | Phone | [...] | | Ascites, | [place], | [place] [address] | | | | | malignant | [place] [address] | Phone: | | | | | Procedures | Phone: | [phone] | | | | | [place] | [phone] | Fax: | | | | | [facility]AC[facility] | Fax: | [phone] | | | | | INJECTION, | [phone] | | | | | | 10 MG [id number] | | | | | | | - [place] | | | | | | | [...] + + | 11/05/ | Hospital | [facility] | Yancy Clifford MD | Malignant neoplasm | | 2019 | Encounter | HEMATOLOGY AND | [address] | of left ovary (HCC) | | | | ONCOLOGY INFUSIONS | [place] | (Primary Dx); | | | | [address] | [address] | Ascites, malignant | | | | AVE [place], [place] | | | | | | [address] | Jennyfer Carcamo, | | | | | [phone] | RN | | +--------+ + + [...] It is given by a health care management assistant in a h ospital or clinic setting. Talk to your cabin cleaning supervisor regarding the use of this medicine in children. Special care may be needed. What side effects may I notice from receiving this medicine? Side effects that you should report to your doctor or health care management assistant as soon as p ossible: allergic [...] (report to your doctor or health care management assistant if they continue or are bothersome): back pain changes in taste decreased appetite dry skin nausea tiredness What may interact with this medicine? Interactions are not expected. What if I miss a dose? It is important not to miss your dose. Call your doctor or health care management assistant if you are unable to keep [...] talk to your doctor or health care management assistant if you are concerned about your [...] for any concerns or questions. Discharged to [facility] with copy of labs and calendar for next appointment: 26 of November 2:15 PM: IVT LAB DRAW with CATRACHITO BOO SS LAB DRAW in [facility] HO INFUSION SUPPORT SERVICES 3:00 PM: Office Visit Extended Appointment starts at 3:15 PM with CIERRA Hatrley in [facility] HEMATOLOGY AND ONCOLOGY 4:00 PM: Onc Infusion with JAZZY CHAIR 14 in [facility] HEMATOLOGY AND ONCOLOGY INFUSIONS documented [...] [place] | | | | | | [address] | | | | | | | | +--------+ + + + + | 12/17/ | Office | Oncology | Yancy Clifford MD | | | 2019 | Visit | | [address] | | | | | | [place] | | | | | | [address] | | | | | | | | +--------+ + + + + | 12/17/ | Appointment | Infusion Therapy | Yancy Clifford MD | | | 2019 | | | [address] | | | | | | [place] | | | | | | [address] | | | | | | | | +--------+ + + + + | 01/07/ | Appointment | Infusion Therapy | Yancy Clifford MD | | | 2019 | | | [address] | | | | | | [place] | | | | | | [address] | | | | | | | | +--------+ + + + + | 01/07/ | Office | Oncology | Yancy Clifford MD | | | 2019 | Visit | | [address] | | | | | | [place] | | | | | | [address] | | | | | | | | +--------+ + + + + | 01/07/ | Appointment | Infusion Therapy | Yancy Clifford MD | | | 2019 | | | [address] | | | | | | [place] | | | | | | [address] | | | | | | | [...]
--- OUTSIDE RECORDS SUMMARY | ~2019-12-09 | XMS | Encounter Summary ---
Demographics + + + | Address | [address] | | | [place] [address] | + + + | Home Phone [...] | | | | [place] [address] | | + + + + + | Emory Larios | ECON | Unknown | | + + + + + Care Team Providers + +------+ + | Care Violent Crimes Detective Name | Role | Phone | + [...] | | | Ascites, | [place], | [place] [address] | | | | | malignant | [place] [address] | Phone: | | | | | Procedures | Phone: | [phone] | | | | | [place] | [phone] | Fax: | | | | | BEVACIZUMAB | Fax: | [phone] | | | | | INJECTION, | [phone] | | | | | | 10 [...] + + | 07/23/ | Hospital | [facility] | Yancy Clifford MD | Malignant neoplasm | | 2019 | Encounter | HEMATOLOGY AND | [address] | of left ovary (HCC) | | | | ONCOLOGY INFUSIONS | [place] | (Primary Dx); | | | | [address] | [address] | Ascites, malignant | | | | [place]VE [place], [place] | | | | | | [address] | Yumiko Crocker, | | | | | [phone] | RN | | +--------+ + + [...] ospital or clinic setting. Talk to your family court registrar regarding the use of this medicine in [...] [facility] 08/13/2019 0945 - Office Visit Extended with CIERRA Hartley in [facility] HEMATOLOGY AND ONCOLOGY 08/13/2019 1015 - Onc Infusion with [facility] CHAIR 04 in [facility] HEMATOLOGY AND ONCOLOGY INFUSIONS 08/13/2019 1230 - Office Visit Regular appointment starts at 1240 with Scott Boswell MD in [facility] PULMONOLOGY 12:1 3 PM PDTdocumented in this [...] [place] | | | | | | [address] | | | | | | | | +--------+ + + + + | 12/17/ | Office | Oncology | Yancy Clifford MD | | | 2019 | Visit | | [address] | | | | | | [place] | | | | | | [address] | | | | | | | | +--------+ + + + + | 12/17/ | Appointment | Infusion Therapy | Yancy Clifford MD | | | 2019 | | | [address] | | | | | | [place] | | | | | | [address] | | | | | | | | +--------+ + + + + | 01/07/ | Appointment | Infusion Therapy | Yancy Clifford MD | | | 2019 | | | [address] | | | | | | [place] | | | | | | [address] | | | | | | | | +--------+ + + + + | 01/07/ | Office | Oncology | Yancy Clifford MD | | | 2019 | Visit | | [address] | | | | | | [place] | | | | | | [address] | | | | | | | | +--------+ + + + + | 01/07/ | Appointment | Infusion Therapy | Yancy Clifford MD | | | 2019 | | | [address] | | | | | | [place] | | | | | | [address] | | | | | | | [...] | | | | NS, Starting [facility] 07/23/19 at 1042 | | | | | | + +---------+ +---------+ +---+ +---+---+ | | | +---+---+ documented in this encounter"
--- OUTSIDE RECORDS SUMMARY | ~2019-12-09 | XMS | Encounter Summary ---
Demographics + + + | Address | [address] | | | [place] [address] | + + + | Home Phone [...] | | | | [place] [address] | | + + + + + | Emory Larios | ECON | Unknown | | + + + + + Care Team Providers + +------+ + | Care Fabric Lay Out Worker Name | Role | Phone | [...] + + | 11/23/ | Telephone | [facility] | Zonia Rivas RN | Triage | | 2019 | | HEMATOLOGY AND | | | | | | ONCOLOGY INFUSIONS | | | | | | [address] | | | | | | [place] | | | | | | [address] | | | | | | [phone] | | | +--------+ + + + [...] [place] | | | | | | [address] | | | | | | | | +--------+ + + + + | 12/17/ | Office | Oncology | Yancy Clifford MD | | | 2019 | Visit | | [address] | | | | | | [place] | | | | | | [address] | | | | | | | | +--------+ + + + + | 12/17/ | Appointment | Infusion Therapy | Yancy Clifford MD | | | 2019 | | | [address] | | | | | | [place] | | | | | | [address] | | | | | | | | +--------+ + + + + | 01/07/ | Appointment | Infusion Therapy | Yancy Clifford MD | | | 2019 | | | [address] | | | | | | [place] | | | | | | [address] | | | | | | | | +--------+ + + + + | 01/07/ | Office | Oncology | Yancy Clifford MD | | | 2019 | Visit | | [address] | | | | | | [place] | | | | | | [address] | | | | | | | | +--------+ + + + + | 01/07/ | Appointment | Infusion Therapy | Yancy Clifford MD | | | 2019 | | | [address] | | | | | | [place] | | | | | | [address] | | | | | | | | +--------+ + + + + documented as of this encounter Visit Diagnoses Not on filedocumented in this encounter"
--- OUTSIDE RECORDS SUMMARY | ~2019-12-09 | XMS | Encounter Summary ---
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) | | | | SERVICES [address] | [place] | (Primary Dx) | | | | [address] [place] | [id number] | | | | | [address] [place] | | | | | | [address] | Sushma Marquis | | | | | [phone] | Tiana RN | | +--------+ + [...] | | | 2019 | | | [address] | | | | | | [place] | | | | | | [address] | | | | | | | | +--------+ + + + + | 12/17/ | Office | Oncology | Yancy Clifford MD | | 2019 | Visit | | [address] | | | | | | [place] | | | | | | [address] | | | | | | | | +--------+ + + + + | 12/17/ | Appointment | Infusion Therapy | Yancy Clifford MD | | | 2019 | | | [address] | | | | | | [place] | | | | | | [address] | | | | | | | | +--------+ + + + + | 01/07/ | Appointment | Infusion Therapy | Yancy Clifford MD | | | 2019 | | | [address] | | | | | | [place] | | | | | | [address] | | | | | | | | +--------+ + + + + | 01/07/ | Office | Oncology | Yancy Clifford MD | | | 2019 | Visit | | [address] | | | | | | [place] | | | | | | [address] | | | | | | | | +--------+ + + + + | 01/07/ | Appointment | Infusion Therapy | Yancy Clifford MD | | | 2020 | | | [address] | | | | | | [place] | | | | | | [address] | | | | | | | [...] [facility];[address] | | LAB | | | | [facility] | | [facility] | | | | [address];[place] [address] | | LABORATORY | | + + + + + + + + | Specimen | + + | Urine | + + + + + + + | Performing | Address | City/State/Zipcode | Phone Number | | Organization | | | | + + + + + | REFERENCE LAB | [address] [place] [address] | [place] [address] | [phone] | | [facility] | Blvd[address] | | | | LABORATORY | | | | + + + + + | REFERENCE LAB | [address] [place] [address] | [place] [address] | | | [facility] | Blvd. | [...] [facility] | | | | Blvd;[place] [address] | | LABORATORY | | + + + + + + | K | 4.3Comment: Testing | 3.5 - 4.9 | REFERENCE | | | | performed at [facility];[address] | mmol/L | LAB | | | | [place] | | [facility] | | | | [address];[place] [address] | | LABORATORY | | + + + + + + | Cl | 106Comment: Testing | 99 - 109 mmol/L | REFERENCE | | | | performed at [facility];[address] | | LAB | | | | [place] | | [facility] | | | | Bl[address];[place] [address] | | LABORATORY | | + + + + + + | CO2 | 27Comment: Testing | 23 - 32 mmol/L | REFERENCE | | | | Performed at [facility], [address] | | LAB | | | | [address] | | [facility] | | | | [address], [place] | | LABORATORY | | | | [address] | | | | + + + + + + | Anion Gap | 9Comment: Testing | 5 - 20 mmol/L | REFERENCE | | | | performed at [facility];[address] | | LAB | | | | [place] | | [facility] | | | | Bl[address];[place] [address] | | LABORATORY | | + + [...] [place] | | | | | | [address] | | | | + + + + + + + + | Specimen | + + | Blood | + + + + + + + | Performing | Address | City/State/Zipcode | Phone Number | | Organization | | | | + + + + + | REFERENCE LAB | [address] | [place] [address] | [phone] | | [facility] | Blvd[address] | | | | LABORATORY | | | | + + + + + | REFERENCE LAB | [address] [address] | [place] [address] | | | [facility] | Blvd. | [...] [facility], [address] | | LAB | | | | [address] | | [facility] | | | | [address], [place] | | LABORATORY | | | | [address] | | | | + + + + + + + + | Specimen | + + | Blood | + + + + + + + | Performing | Address | City/State/Zipcode | Phone Number | | Organization | | | | + + + + + | REFERENCE LAB | [address] [facility] | [place] [address] | [phone] | | [facility] | Blvd[address] | | | | LABORATORY | | | | + + + + + | REFERENCE LAB | [address] [facility] | [place] [address] | | | [facility] | Blvd. | [...] [facility];[address] | | | | | | [facility] | | | | | | [facility];[place] [address] | | | | | | | | | | + + + + + + + + | Specimen | + + | Blood | + + + + + + + | Performing | Address | City/State/Zipcode | Phone Number | | Organization | | | | + + + + + | REFERENCE LAB | [address] [place] [address] | [place] [address] | [phone] | | [facility] | Blvd[address] | | | | LABORATORY | | | | + + + + + | REFERENCE LAB | [address] [facility] | [place] [address] | | | [facility] | Blvd. | [...] | | LABORATORY | | | | [address] | | | | + + + + + + + + | Specimen | + + | Blood | + + + + + + + | Performing | Address | City/State/Zipcode | Phone Number | | Organization | | | | + + + + + | REFERENCE LAB | [address] [place] [address] | [place] [address] | [phone] | | [facility] | Blvd. | | | | LABORATORY | | | | + + + + + | REFERENCE LAB | [address] [place] [address] | [place] [address] | | | [facility] | Blvd. | [...] - 1.030 | REFERENCE | | | [place], | | | LAB | | | [...] [facility], [address] | | LAB | | | | [address] | | [facility] | | | | [address], [place] | | LABORATORY | | | | [address] | | | | + + + + + + + + | Specimen | + + | Urine | + + + + + + + | Performing | Address | City/State/Zipcode | Phone Number | | Organization | | | | + + + + + | REFERENCE LAB | [address] [place], [place] [address] | [place] [address] | [phone] | | [facility] | Blvd. | | | | LABORATORY | | | | + + + + + | REFERENCE LAB | [address] [place], [place] [address] | [place] [address] | | | [facility] | Blvd. | [...] [facility] | | | | Blvd;[place] [address] | | LABORATORY | | + + + + + + | K | 4.3Comment: Testing | 3.5 - 4.9 | REFERENCE | | | | performed at [facility];[address] | mmol/L | LAB | | | | [place] | | [facility] | | | | Blvd;[place] [address] | | LABORATORY | | + + + + + + | Cl | 105Comment: Testing | 99 - 109 mmol/L | REFERENCE | | | | performed at [facility];[address] | | LAB | | | | [place] | | [facility] | | | | Blvd;[place] [address] | | LABORATORY | | + + + + + + | CO2 | 26Comment: Testing | 23 - 32 mmol/L | REFERENCE | | | | Performed at [facility], [address] | | LAB | | | | [address] | | [facility] | | | | [address], [place] | | LABORATORY | | | | [address] | | | | + + + + + + | Anion Gap | 11Comment: Testing | 5 - 20 mmol/L | REFERENCE | | | | performed at [facility];[address] | | LAB | | | | [address] | | [facility] | | | | Bl[address];[place] [address] | | LABORATORY | | + + [...] [facility], [address] | | | | | | [address] | | | | | | [address], [place] | | | | | | [address] | | | | + + + + + + + + | Specimen | + + | Blood | + + + + + + + | Performing | Address | City/State/Zipcode | Phone Number | | Organization | | | | + + + + + | REFERENCE LAB | [address] [facility] | [place] [address] | [phone] | | [facility] | Blvd. | | | | LABORATORY | | | | + + + + + | REFERENCE LAB | [address] [facility] | [place] [address] | | | [facility] | Blvd. | [...] | [facility] | | | | [address], [place] | | LABORATORY | | | | [address] | | | | + + + + + + + + | Specimen | + + | Blood | + + + + + + + | Performing | Address | City/State/Zipcode | Phone Number | | Organization | | | | + + + + + | REFERENCE LAB | [address] [facility] | [place] [address] | [phone] | | [facility] | Blvd. | | | | LABORATORY | | | | + + + + + | REFERENCE LAB | [address] [facility] | [place] [address] | | | [facility] | Blvd. | [...] [facility] | | | | Blvd;[place] [address] | | LABORATORY | | + + + + + + | K | 4.1Comment: Testing | 3.5 - 4.9 | REFERENCE | | | | performed at [facility];[address] | mmol/L | LAB | | | | [place] | | [facility] | | | | Blvd;[place] [address] | | LABORATORY | | + + + + + + | Cl | 104Comment: Testing | 99 - 109 mmol/L | REFERENCE | | | | performed at [facility];[address] | | LAB | | | | [place] | | [facility] | | | | Blvd;[place] [address] | | LABORATORY | | + + + + + + | CO2 | 26Comment: Testing | 23 - 32 mmol/L | REFERENCE | | | | Performed at [facility], [address] | | LAB | | | | [address] | | [facility] | | | | [address], [place] | | LABORATORY | | | | [address] | | | | + + + + + + | Anion Gap | 10Comment: Testing | 5 - 20 mmol/L | REFERENCE | | | | performed at [facility];[address] | | LAB | | | | [place] | | [facility] | | | | Blvd;[place] [address] | | LABORATORY | | + + [...] | | | | | | MDRD IDPR traceable | | | | | | equation.Testing | | | | | | Performed at [facility], [address] | | | | | | [facility] | | | | | | [address], [place] | | | | | | [address] | | | | + + + + + + + + | Specimen | + + | Blood | + + + + + + + | Performing | Address | City/State/Zipcode | Phone Number | | Organization | | | | + + + + + | REFERENCE LAB | [address] [facility] | [place] [address] | [phone] | | [facility] | Blvd. | | | | LABORATORY | | | | + + + + + | REFERENCE LAB | [address] | [place] [address] | | | [facility] | Blvd. | [...] | | LABORATORY | | | | [address] | | | | + + + + + + + + | Specimen | + + | Blood | + + + + + + + | Performing | Address | City/State/Zipcode | Phone Number | | Organization | | | | + + + + + | REFERENCE LAB | [address] | [place] [address] | [phone] | | [facility] | Blvd. | | | | LABORATORY | | | | + + + + + | REFERENCE LAB | [address] | [place] [address] | | | [facility] | Blvd. | [...] [facility], [address] | | | | | | [address] | | | | | | [address], [place] | | | | | | [address] | | | | + + + + + + + + | Specimen | + + | Blood | + + + + + + + | Performing | Address | City/State/Zipcode | Phone Number | | Organization | | | | + + + + + | REFERENCE LAB | [address] [facility] [address] | [place] [address] | [phone] | | [facility] | Blvd. | | | | LABORATORY | | | | + + + + + | REFERENCE LAB | [address] | [place] [address] | | | [facility] | Blvd. | [...] | | LABORATORY | | | | [address] | | | | + + + + + + + + | Specimen | + + | Blood | + + + + + + + | Performing | Address | City/State/Zipcode | Phone Number | | Organization | | | | + + + + + | REFERENCE LAB | [address] | [place] [address] | [phone] | | [facility] | Blvd. | | | | LABORATORY | | | | + + + + + | REFERENCE LAB | [address] | [place] [address] | | | [facility] | Blvd. | [...] [place] | | | | | | [address] | | | | + + + + + + + + | Specimen | + + | | + + + + + + + | Performing | Address | City/State/Zipcode | Phone Number | | Organization | | | | + + + + + | REFERENCE LAB | [address] [place] [address] | [place] [address] | [phone] | | [facility] | Blvd. | | | | LABORATORY | | | | + + + + + | REFERENCE LAB | [address] [place] [address] | [place] [address] | | | [facility] | Blvd. | [...] [facility];[address] | | [facility] | | | | [place] | | LABORATORY | | | | Blvd;[place] [address] | | | | | | | | | | + + + + + + + + | Specimen | + + | | + + + + + + + | Performing | Address | City/State/Zipcode | Phone Number | | Organization | | | | + + + + + | REFERENCE LAB | [address] [place] [address] | [place] [address] | [phone] | | [facility] | Blvd. | | | | LABORATORY | | | | + + + + + | REFERENCE LAB | [address] [place] [address] | [place] [address] | | | [facility] | Blvd. | [...] performed at [facility];[address] | | [facility] | | | | [place] | | LABORATORY | | | | Blvd;[place] [address] | | | | | | | | | | + + + + + + + + | Specimen | + + | | + + + + + + + | Performing | Address | City/State/Zipcode | Phone Number | | Organization | | | | + + + + + | REFERENCE LAB | [address] [facility] [address] | [place] [address] | [phone] | | [facility] | Blvd. | | | | LABORATORY | | | | + + + + + | REFERENCE LAB | [address] [facility] [address] [facility] [address] | [place] [address] | | | [facility] | Blvd. | [...] - 1.030 | REFERENCE | | | [place], | | | LAB | | | [...] [facility], [address] | | LAB | | | | [address] | | [facility] | | | | [address] | | LABORATORY | | | | [address] | | | | + + + + + + + + | Specimen | + + | | + + + + + + + | Performing | Address | City/State/Zipcode | Phone Number | | Organization | | | | + + + + + | REFERENCE LAB | [address] [facility] [address] | [place] [address] | [phone] | | [facility] | Blvd. | | | | LABORATORY | | | | + + + + + | REFERENCE LAB | [address] [facility] [address] | [place] [address] | | | [facility] | Blvd. | [...] [facility];[address] | | LAB | | | | [place] | | [facility] | | | | Blvd;[place] [address] | | LABORATORY | | + + + + + + + + | Specimen | + + | | + + + + + + + | Performing | Address | City/State/Zipcode | Phone Number | | Organization | | | | + + + + + | REFERENCE LAB | [address] [place] [address] | [place] [address] | [phone] | | [facility] | Blvd. | | | | LABORATORY | | | | + + + + + | REFERENCE LAB | [address] [place] [address] | [place] [address] | | | [facility] | Blvd. | [...] [place] | | | | | | [address] | | | | + + + + + + + + | Specimen | + + | | + + + + + + + | Performing | Address | City/State/Zipcode | Phone Number | | Organization | | | | + + + + + | REFERENCE LAB | [address] | [place] [address] | [phone] | | [facility] | Blvd. | | | | LABORATORY | | | | + + + + + | REFERENCE LAB | [address] | [place] [address] | | | [facility] | Blvd. | [...] [facility], [address] | | [facility] | | | | [address] | | LABORATORY | | | | [address], [place] | | | | | | [address] | | | | + + + + + + + + | Specimen | + + | | + + + + + + + | Performing | Address | City/State/Zipcode | Phone Number | | Organization | | | | + + + + + | REFERENCE LAB | [address] | [place] [address] | [phone] | | [facility] | Blvd[address] | | | | LABORATORY | | | | + + + + + | REFERENCE LAB | [address] | [place] [address] | | | [facility] | Blvd. | [...]
--- OUTSIDE RECORDS SUMMARY | ~2019-12-09 | XMS | Encounter Summary ---
Demographics + + + | Address | [address] | | | [place] [address] | + + + | Home Phone [...] | | | | [place] [address] | | + + + + + | Emory Larios | ECON | Unknown | | + + + + + Care Team Providers + +------+ + | Care Braid Maker Name | Role | Phone | [...] + | 11/05/ | Office | 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 07/2017 Surgery S/p debulking surgery. Final pathology [...] MDRD IDMS traceable equation. Testing performed at [facility];[address] [facility];[place] [address] WBC 11/05/2019 7.80 3.80 - 11.00 K/uL [...] - 0.10 K/uL Final Testing Performed at [facility], [address], [address], [place] [address] PRO/CREA RATIO,URINE 11/05/2019 0.561 Final Testing performed at [facility];[address] [facility];[place] [address] Color, UA 11/05/2019 YELLOW Final Clarity, UA 11/05/2019 CLEAR Final Specific [place], Urine 11/05/2019 1.025 1.002 - 1.030 Final [...] NEGATIVE NEG mg/dL Final Testing Performed at [facility], [address], [place] [address] Creatinine, random urine 11/05/2019 157.0 mg/dL Final Comment: NO NORMAL RANGE ESTABLISHED Testing performed at [facility];[address] [place] [address];[place] [address] Protein, Urine 11/05/2019 88 mg/dL Final Comment: NO NORMAL RANGE ESTABLISHED Testing performed at [facility];[address] [place] [address];[place] [address] WBC UA 11/05/2019 1-5 0 - 5 /hpf Final RBC UA 11/05/2019 0-2 0 - 5 /hpf Final SQUAMOUS EPITHELIAL UA 11/05/2019 50-100 /lpf Final BACTERIA UA 11/05/2019 2+* NONE Final MUCUS UA 11/05/2019 2+ Final CASTS 11/05/2019 1-5 /lpf Final Comment: HYALINE 0-2 FINE GRANULAR Testing Performed at [facility], [address] [facility] [address], [place] [address] Orders Only on 11/05/2019 Component Date Value Ref Range Status CA125 11/05/2019 44.6* 0 - 35 U/mL Final Comment: THE [facility] (FORMERLY [facility]) ADVIA CENTAUR IMMUNOASSAY METHOD IS USED. RESULTS OBTAINED WITH DIFFERENT ASSAY METHODS OR KITS CANNOT BE USED INTERCHANGEABLY. Testing performed at [facility];[address] [place] [address];[place] [address] Results for ELSY BAXTER ( ) as [...] examining the patient, review of medical records, senior counsel ing, coordination of care, and CPOE. More than 50% of that time was spent in direct contact with the patient. [facility] Treatment +--------+ + + + + | Date | Type | Specialty | Care Team | Description | +--------+ + + + + | 12/17/ | Appointment | Infusion Therapy | Yancy Clifford MD | | | 2019 | | | [address] | | | | | | [place] | | | | | | [id number] | | | | | | | | +--------+ + + + + | 12/17/ | Office | Oncology | Yancy Clifford MD | | | 2019 | Visit | | [address] | | | | | | [place] | | | | | | [address] | | | | | | | | +--------+ + + + + | 12/17/ | Appointment | Infusion Therapy | Yancy Clifford MD | | | 2019 | | | [address] | | | | | | [place] | | | | | | [address] | | | | | | | | +--------+ + + + + | 01/07/ | Appointment | Infusion Therapy | Yancy Clifford MD | | | 2019 | | | [address] | | | | | | [place] | | | | | | [address] | | | | | | | | +--------+ + + + + | 01/07/ | Office | Oncology | Yancy Clifford MD | | | 2019 | Visit | | [address] | | | | | | [place] | | | | | | [address] | | | | | | | | +--------+ + + + + | 01/07/ | Appointment | Infusion Therapy | Yancy Clifford MD | | | 2019 | | | [address] | | | | | | [place] | | | | | | [phone] | | | | | | | [...]
--- OUTSIDE RECORDS SUMMARY | ~2019-12-09 | XMS | Encounter Summary ---
Demographics + + + | Address | [address] | | | [place] [address] | + + + | Home Phone [...] | | | | | [place] [address] | | + + + + + | Emory Larios | ECON | Unknown | | + + + + + Care Team Providers + +------+ + | Care Hide Inspector And Sorter Name | Role | Phone | + +------+ + PCP | Unavailable | + +------+ + Encounter Details +--------+ + + + + | Date | Type | Department | Care Team | Description | +--------+ + + + + | 05/13/ | Hospital | [facility] | Jared Piña, | | | 2019 - | Encounter | [facility] | MD [address] | | | | | CARE FLOOR [address] | [place] [address] | | | 05/16/ | | [address] | [phone] | | | 2018 | | [place], [place] | | | | | | [address] | | | | | | [phone] | | | +--------+ + + + [...] 1510 Date of Service: 05/16/19822 Status: Signed Automotive Parts Salesperson: Kristine Toussaint DO (Physician) Patient: Ramila Lopez [...] arthritis, asthma, DVT, dyslipidemia. She presented t [facility] ED on 05/13/19 with complaints of epistaxis. At that time her labs were nota ble for platelets 13, Hb 7.6, Hct 22.3. She was transferred to [facility] as there was no transfus ion services available at that time. Upon arrival to [facility] Oncology and ENT Dr. [...] Discharge Information: Follow up: Jonnathan Hinds MD [address] [id number] [facility] [phone] On 05/18/2019 For nasal packing removal Per Pt None Yancy Clifford MD [address] [facility] [address] Medication List START taking these medications amoxicillin-clavulanate [...] Date of Service: 05/16/19 141 Status: Signed Automotive Parts Salesperson: Burak Brooks RN (Registered Nurse) Education provided [...] Date of Service: 05/16/19 110 Status: Signed Automotive Parts Salesperson: Yancy Clifford MD (Physician) [facility] Service: Hematology and Oncology Progress [...] Jaida Shen RN Service: (none) Author Type: Heat Sealing Machine Operator Filed: 05/15/19 1539 Date of Service: 05/15/19 153 Status: Signed Automotive Parts Salesperson: Jaida Shen RN (Heat Sealing Machine Operator) CM attended daily medical team rounding. Pt is from home with spouse and will return home w hen medically stable. Kristine Burns DO - 05/15/2019 11:26 AM PDT Progress Notes by Kristine Toussaint DO at 05/15/19 1126 Author: Kristine Toussaint DO Service: Hospitalist Author Type: Physician Filed: 05/15/19 1134 Date of Service: 05/15/19 1126 Status: Signed Automotive Parts Salesperson: Kristine Toussaint DO (Physician) [facility] Service: Hospitalist Progress Note Hospital Day: LOS: 2 days Post-Op Day: * No surgery found * SUBJECTIVE Patient Summary: Patient is a 58 yo F with PMHx of metastatic ovarian CA (last chemotherap y treatment last week; under treatment by Dr. Venessa Correa), arthritis, asthma, DVT, dyslipidemi a. She presented to [place]'s ED on 05/13/19 with complaints of epistaxis. At that time her labs were notable for platelets 13, Hb 7.6, Hct 22.3. She was transferred to [facility] as the re was no transfusion services available at that time. Upon arrival to [facility] Oncology and ENT Dr. [...] on Saturday if no ENT available in [place]. Juliano l transition to Augmentin for prophylaxis. [...] Advanced R egistered Nurse Practitioner Filed: 05/15/19 9926 Date of Service: 05/15/19930 Status: Signed Automotive Parts Salesperson: CIERRA Joshi (Advanced Registered Nurse Practitioner) [facility] Service: Hematology and Oncology Progress Note Hospital Day: LOS: 2 days Patient Summary: Ms. Ramila Lopez is a 58 year old woman who presented to ER in [place] in April 2017 second yunior to dyspnea and abdominal distention. CT of the chest, abdomen and pelvis April 04, 2017 at [facility] revealed left pleural effusion with a left ovarian mass measuring 7. 6 X 5 X 5.8 cm with omental caking and ascites. CA 125 was nearly 2000. She underwent parac entesis with removal of 3600 cc fluid and thoracentesis with removal of 700cc, with patholog y from both consistent with malignancy of ovarian primary. She was referred to [facility] and established with Dr. Nolasco. Given her [...] established with Dr. Clifford after moving to [place]. In December 2018, the patient experienced rising [...] May 13, 2019, the patient presented to [place] ER secondary to epistaxis. The gaetano ent was seen in the ER by Dr. Diop. The patient was noted to be pancytopenic with platelet s 13,000, hemoglobin 7.6, and total white cell count 25,000. ER provider requested transfer to [facility] given the lack of platelets available in their facility. The patient received 2 un its of fresh frozen plasma prior to transfer and was admitted to [facility] for further manageme nt. SUBJECTIVE: Events [...] (none) Author Type: Registered Nurse Filed: 05/14/19 7774 Date of Service: 05/14/191708 Status: Signed Automotive Parts Salesperson: Senait Lehman RN (Registered Nurse) Transfused 2 [...] 1422 Date of Service: 05/14/191420 Status: Signed Automotive Parts Salesperson: Alisha De La Torre RD (Registered Dietitian) 05/14/19 1400 Subjective Timepoint Admit Pt c/o Pt triggered for screen secondary to dysphagia. Admitted d/t pancytopenia, had intra ctable nose bleed. Reported by Patient Diet Experience Self-selected diet(s) followed Reports she was eating well DAM WORKER, follows no special diet. Sadler d a BLT before transferring to [facility]. Fluid / Beverage Intake [...] expressed frustratio n with restrictive diet. Recommend SENIOR TAX MANAGER evaluation to determine safest diet or liberalizing i f appropriate. Anthropometrics Weight change Admit wt: 87.5 kg. BMI of 33 considered obese. Pt reports wt has been stable , medical records confirm. Monitor wt trend. Biochemical data, medical tests, and procedures reviewed Biochemical data, medical tests, and procedures reviewed Labs reviewed. Estimated Energy Needs Total Energy Estimated Needs 1231-6643 kcal/day Method for Estimating Needs 25-30 kcal/kg per 62.78 AdjBW Estimated Protein Needs Total Protein Estimated Needs 75-94 g/day Method for Estimating Needs 1.2-1.5 g/kg Recommendations Recommended energy needs General diet with modified textures as needed. Recommend SENIOR TAX MANAGER evalu ation to determine safest PO intake, liberalize diet as possible to promote adequate intake. Monitor and follow per protocol. Nutritional Risk Nutritional risk Moderate Follow up date 05/19/19 Lynne John John, JORDY 05/14/2019 onver yuri Teixeira, Provider Unknown - 05/14/2019 11:51 AM PDT Case Management by Jaida Shen RN at 05/14/19 1151 Author: Jaida Shen RN Service: (none) Author Type: Heat Sealing Machine Operator Filed: 05/14/19 1231 Date of Service: 05/14/19 1151 Status: Signed Automotive Parts Salesperson: Jaida Shen RN (Heat Sealing Machine Operator) 05/14/19 1149 Discharge Planning Evaluation Admitting Diagnosis Pancytopenia Readmission No Living Arrangements Spouse/significant other Support Systems Spouse/significant other;Children;Family members Type of Residence Private residence House type House-1 story Independent with ADL's Yes Independent with Mobility Yes Home Care Services No Caregiver after Discharge Yes Caregiver Name Jared Lopez Relationship to Patient spouse Phone number [phone] Mental Status Oriented Prior functional status independent [...] cancer. Pt lives with her spouse in [place], [place] and has been independent with adls [...] Service: Hospitalist Author Type: Physician Filed: 05/14/19 1144 Date of Service: 05/14/191129 Status: Signed Automotive Parts Salesperson: Star Cedeño MD (Physician) [facility] Service: Hospitalist Progress Note Hospital [...] 05/14/19619 Date of Service: 05/14/19616 Status: Signed Automotive Parts Salesperson: Anitha Simons RN (Registered Nurse) End of [...] 05/13/191826 Date of Service: 05/13/191826 Status: Signed Automotive Parts Salesperson: Jessica Garza RPH (Pharmacist) Clinical Pharmacy Note: [...] Date of Service: 05/13/19 1800 Status: Signed Automotive Parts Salesperson: Jessica Garza RPH (Pharmacist) Clinical Pharmacy Note: [...] appropriate dosing per renal function. Jessica Garza [facility] 5:59 PM 05/13/2019 Pharmacist onver yuri Teixeira, Provider Unknown - 05/13/2019 4:53 PM PDT Nurse Progress Note by Jillian Cruz RN at 05/13/191652 Author: Jillian Cruz RN Service: (none) Author Type: Registered Nurse Filed: 05/13/191815 Date of Service: 05/13/191652 Status: Addendum Automotive Parts Salesperson: Jillian Cruz RN (Registered Nurse) Related Notes: Original Note by Jillian Cruz RN (Registered Nurse) filed at 05/13/19 16 55 End of Shift Note: Pt admitted to floor resting comfortably in bed. [place] in place, but pt reports that nose is still oozing down throat. DAM WORKER med list reviewed and complete. Pt states [...] [place] | | | | | | [address] | | | | | | | | +--------+ + + + + | 12/17/ | Office | Oncology | Yancy Clifford MD | | | 2019 | Visit | | [address] | | | | | | [place] | | | | | | [address] | | | | | | | | +--------+ + + + + | 12/17/ | Appointment | Infusion Therapy | Yancy Clifford MD | | | 2019 | | | [address] | | | | | | [place] | | | | | | [address] | | | | | | | | +--------+ + + + + | 01/07/ | Appointment | Infusion Therapy | Yancy Clifford MD | | | 2019 | | | [address] | | | | | | [place] | | | | | | [address] | | | | | | | [...] [place] | | | | | | [address] | | | | | | | [...] | | | | | | at [facility], [address] | | | | | | [facility], | | | | | | [place] [address] | | | | | |Testing performed at [facility], [address] [place] [address] | | | | | | | [...] | | | | | performed at [facility], [address] | | | | | | [facility], | | | | | | [place] [address] | | | | + + + [...] | performed at [facility], [address] | | | | | | [address], | | | | | | [place] [address] | | | | | | | [...] | | | | | performed at [facility];[address] | | | | [address];[place] | | | | | | [address] | | | | + + + [...] LAB | | | | TCL, [address] [facility] | | | | | | [place] | | | | | | [address] | | | | + + + [...] | | | | | [place] [address] | | | | + + + [...] EXTERNAL | | | | performed at [facility], [address] | | LAB | | | | [address], | | | | | | [place] [address] | | | | + + + [...] [address], | | | | | | [place] [address] | | | | + + + [...] - 1.030 | EXTERNAL | | | [place] | | | LAB | | + [...] EXTERNAL | | | | performed at [facility] | | LAB | | | | [address];[place], [place] | | | | | | [address] | | | | + + + [...] | Historically converted procedure from [facility] environment | EXTERNAL LAB | + + [...] | | | Patient | performed at [facility];[address] | | LAB | | | | [address];[place], [place] | | | | | | [address] | | | | + + + [...] | | | | | performed at [facility];[address] | | | | | | [address];[place], [place] | | | | | | [address] | | | | + + + [...] | | | Plasma | 6RP [phone] [place] | | | | | |KEISHA Stephenson RN 6RP [phone] [id number] [place] | | | | | | | [...] | | | | | performed at [facility];[address] | | | | | | [facility];[place], [place] | | | | | | [address] | | | | | |Testing performed at [facility];[address] [place] [address];[place] [address] | | | | | | | [...] EXTERNAL | | | | performed at [facility] | | LAB | | | | [address] [place];[place] | | | | | | [address] | | | | + + + [...] EXTERNAL | | | | performed at [facility];[address] | | LAB | | | | [address];[place], [place] | | | | | | [address] | | | | + + + [...] | | | | | performed at [facility];[address] | | | | | | [facility];[place], [place] | | | | | | [address] | | | | + + + [...]
--- OUTSIDE RECORDS SUMMARY | ~2019-12-09 | XMS | Encounter Summary ---
Demographics + + + | Address | [address] | | | [place] [address] | + + + | Home Phone [...] | | | | [place] [address] | | + + + + + | Emory Larios | ECON | Unknown | | + + + + + Care Team Providers + +------+ + | Care Drop Forger Name | Role | Phone | + +------+ + | Shannan Deng | PCP | | + +------+ + Encounter Details +--------+ + + + + | Date | Type | Department | Care Team | Description | +--------+ + + + + | 10/15/ | Hospital | [facility] | Yancy Clifford MD | 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) | | | | SERVICES [address] | [place] | (Primary Dx); | | | | [address] [place] | [id number] | 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 Sent to [facility] for peripheral draw 19 9:06 AM [...] [place] | | | | | | [address] | | | | | | | | +--------+ + + + + | 12/17/ | Office | Oncology | Yancy Clifford MD | | | 2019 | Visit | | [address] | | | | | | [place] | | | | | | [address] | | | | | | | | +--------+ + + + + | 12/17/ | Appointment | Infusion Therapy | Yancy Clifford MD | | | 2019 | | | [address] | | | | | | [place] | | | | | | [address] | | | | | | | | +--------+ + + + + | 01/07/ | Appointment | Infusion Therapy | Yancy Clifford MD | | | 2019 | | | [address] | | | | | | [place] | | | | | | [address] | | | | | | | | +--------+ + + + + | 01/07/ | Office | Oncology | Yancy Clifford MD | | | 2019 | Visit | | [address] | | | | | | [place] | | | | | | [address] | | | | | | | | +--------+ + + + + | 01/07/ | Appointment | Infusion Therapy | Yancy Clifford MD | | | 2019 | | | [address] | | | | | | [place] | | | | | | [address] | | | | | | | [...]
--- OUTSIDE RECORDS SUMMARY | ~2019-12-09 | XMS | Encounter Summary ---
Demographics + + + | Address | [address] | | | [place] [address] | + + + | Home Phone [...] | | | | | [place] [address] | | + + + + + | Emory Larios | ECON | Unknown | | + + + + + Care Team Providers + +------+ + | Care Public Events Facilities Rental Manager Name | Role | Phone | + +------+ + PCP | Unavailable | + +------+ + Encounter Details +--------+ + + + + | Date | Type | Department | Care Team | Description | +--------+ + + + + | 06/11/ | Orders Only | [facility] | Yancy Clifford MD | | | 2019 | | [address] [facility] | [address] | | | | | [place] | [place] | | | | | [address] | [address] | | | | | [phone] | | | +--------+ + + + [...] [place] | | | | | | [address] | | | | | | | | +--------+ + + + + | 12/17/ | Office | Oncology | Yancy Clifford MD | | | 2019 | Visit | | [address] | | | | | | [place] | | | | | | [address] | | | | | | | | +--------+ + + + + | 12/17/ | Appointment | Infusion Therapy | Yancy Clifford MD | | | 2019 | | | [address] | | | | | | [place] | | | | | | [address] | | | | | | | | +--------+ + + + + | 01/07/ | Appointment | Infusion Therapy | Yancy Clifford MD | | | 2019 | | | [address] | | | | | | [place] | | | | | | [address] | | | | | | | | +--------+ + + + + | 01/07/ | Office | Oncology | Yancy Clifford MD | | | 2019 | Visit | | [address] | | | | | | [place] | | | | | | [address] | | | | | | | | +--------+ + + + + | 01/07/ | Appointment | Infusion Therapy | Yancy Clifford MD | | | 2019 | | | [address] | | | | | | [place] | | | | | | [address] | | | | | | | [...]
--- OUTSIDE RECORDS SUMMARY | ~2019-12-09 | XMS | Clinical Summary ---
Demographics + + + | Address | [address] | | | [place] [address] | + + + | Home Phone | | + + + | Preferred Language | Unknown | + + + | Marital Status | Legally | + + + | Islam Affiliation | Unknown | + + + | Race | Unknown | + + + | Ethnic Group | Unknown | + + + Author + + + | Author | [employer] [facility] (Historical as of | | | 07-18-19) | + + + | Organization | [facility] (Historical as of | | | 07-18-19) [...] | | | | [place] [address] | | + + + + + | Emory Larios | EBENEZER | Unknown | | + + + + + Care Team Providers + +------+ + | Care Community Development Director Name | Role | Phone | [...] +------+-------+ + | MEDICARE | MEDICA | [id number] | | | [address] | | | RE | | | | [place] [address] | | | IP-OP | | | | | + +--------+ +------+-------+ + | MEDICAID | MEDICA | [id number] | | | [address] | | | ID | | | | [place] | | | [place] | | | | [address] | + +--------+ +------+-------+ + + +--------+ +--------+ + + | Guarantor Name | Accoun | Relation to | Date | Phone | Billing Address | | | t Type | Patient | of | | | | | | | | | | + +--------+ +--------+ + + | ELSY BAXTER | Person | Self [birth year] | Home: | [address] | | | al/Fam | | 1959 | [phone] [address] [place], | | | ever | | | [address] | [place] [address] | + +--------+ +--------+ + +
--- OUTSIDE RECORDS SUMMARY | ~2019-12-09 | XMS | Encounter Summary ---
Demographics + + + | Address | [address] | | | [place] [address] | + + + | Home Phone [...] | | | | | [place] [address] | | + + + + + | Emory Larios | ECON | Unknown | | + + + + + Care Team Providers + +------+ + | Care Magistrate Judge Name | Role | Phone | + +------+ + PCP | Unavailable | + +------+ + Encounter Details +--------+ + + + + | Date | Type | Department | Care Team | Description | +--------+ + + + + | 06/11/ | Orders Only | [facility] | Yancy Clifford MD | | | 2018 | | INFUSION SUPPORT | [address] | | | | | SERVICES [address] | [place], [place] | | | | | [address] [place] | [address] | | | | | [address] [place] | | | | | | [address] | | | | | | [phone] | | | +--------+ + + + [...] Notes by Sushma Mcfarlane RN at 06/11/19 8728 Author: Sushma Mcfarlane RN Service: (none) Author Type: Registered Nurse Filed: 06/11/19 1337 Encounter Date: 06/11/2019 Status: Signed Senior Cytogenetic Technologist: Sushma Mcfarlane RN (Registered Nurse) Port accessed [...] [place] | | | | | | [address] | | | | | | | | +--------+ + + + + | 12/17/ | Appointment | Infusion Therapy | Yancy Clifford MD | | | 2019 | | | [address] | | | | | | [place] | | | | | | [address] | | | | | | | | +--------+ + + + + | 01/07/ | Appointment | Infusion Therapy | Yancy Clifford MD | | | 2019 | | | [address] | | | | | | [place] | | | | | | [address] | | | | | | | | +--------+ + + + + | 01/07/ | Office | Oncology | Yancy Clifford MD | | | 2019 | Visit | | [address] | | | | | | [place] | | | | | | [address] | | | | | | | | +--------+ + + + + | 01/07/ | Appointment | Infusion Therapy | Yancy Clifford MD | | | 2019 | | | [address] | | | | | | [place] | | | | | | [address] | | | | | | | [...] - 1.030 | EXTERNAL | | | [place] | | | LAB | | + [...]
--- OUTSIDE RECORDS SUMMARY | ~2019-12-09 | XMS | Encounter Summary ---
Demographics + + + | Address | [address] | | | [place] [address] | + + + | Home Phone [...] | | | | [place] [address] | | + + + + + | Emory Larios | ECON | Unknown | | + + + + + Care Team Providers + +------+ + | Care Senior Test Engineer Name | Role | Phone | [...] | | ECHO | [address] | [place], [place] | | | | | Complete | [place], [place] | [address] | | | | | | [address] | Phone: | | | | | | Phone: | [phone] | | | | | | [phone] | Fax: | | | | | | Fax: | [phone] | | | | | | [phone] | | +--------+--------+ + + + + Encounter Details +--------+ + + + + | Date | Type | Department | Care Team | Description | +--------+ + + + + | 08/04/ | Orders Only | [facility] | Scott Boswell MD | Pulmonary HTN (HCC) | | 2019 | | PULMONOLOGY [address] | [address] | (Primary Dx) | | | | [address] | [place], [place] | | | | | [place], [place] | [address] | | | | | [address] | | | | | | [phone] | | | +--------+ + + + [...] [place] | | | | | | [address] | | | | | | | | +--------+ + + + + | 01/07/ | Appointment | Infusion Therapy | Yancy Clifford MD | | | 2019 | | | [address] | | | | | | [place] | | | | | | [address] | | | | | | | | +--------+ + + + + | 01/07/ | Office | Oncology | Yancy Clifford MD | | | 2019 | Visit | | [address] | | | | | | [place] | | | | | | [address] | | | | | | | | +--------+ + + + + | 01/07/ | Appointment | Infusion Therapy | Yancy Clifford MD | | | 2019 | | | [address] | | | | | | [place] | | | | | | [address] | | | | | | | | +--------+ + + + + + + +--------+ + + | Name | Type | Priori | Associated Diagnoses | Order Schedule | | | | ty | | | + + +--------+ + + | ECHO Complete | Echocardiog | Routin | Pulmonary HTN | Expected: | | | pipo | e | ([facility]) | 08/04/2019, Expires: | | | | | | 08/04/2020 | + + +--------+ + + documented as of this encounter Visit Diagnoses + + | Diagnosis | + + | Pulmonary HTN (HCC) - Primary Other chronic pulmonary heart diseases | + + documented in this encounter"
--- OUTSIDE RECORDS SUMMARY | ~2019-12-09 | XMS | Encounter Summary ---
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 | | | | [phone] | | (HCC); Pleural | | | [...] [place] | | | | | | [address] | | | | | | | | +--------+ + + + + | 12/17/ | Office | Oncology | Yancy Clifford MD | | | 2019 | Visit | | [address] | | | | | | [place] | | | | | | [address] | | | | | | | | +--------+ + + + + | 12/17/ | Appointment | Infusion Therapy | Yancy Clifford MD | | | 2019 | | | [address] | | | | | | [place] | | | | | | [address] | | | | | | | | +--------+ + + + + | 01/07/ | Appointment | Infusion Therapy | Yancy Clifford MD | | | 2019 | | | [address] | | | | | | [place] | | | | | | [address] | | | | | | | | +--------+ + + + + | 01/07/ | Office | Oncology | Yancy Clifford MD | | | 2019 | Visit | | [address] | | | | | | [place] | | | | | | [address] | | | | | | | | +--------+ + + + + | 01/07/ | Appointment | Infusion Therapy | Yancy Clifford MD | | | 2020 | | | [address] | | | | | | [place] | | | | | | [address] | | | | | | | [...] [place] | | | | | | [address] | | | | + + + + + + + + | Specimen | + + | | + + + + + + + | Performing | Address | City/State/Zipcode | Phone Number | | Organization | | | | + + + + + | REFERENCE LAB | [address] [facility] | [place] [address] | [phone] | | [facility] | Blvd. | | | | LABORATORY | | | | + + + + + | REFERENCE LAB | [address] [facility] [facility] [address] | [place] [address] | | | [facility] | Blvd. | | | | [...] | performed at [facility];[address] | | [facility] | | | | [facility] | | LABORATORY | | | | Blvd;[place] [address] | | | | | | | | | | + + + + + + + + | Specimen | + + | | + + + + + + + | Performing | Address | City/State/Zipcode | Phone Number | | Organization | | | | + + + + + | REFERENCE LAB | [address] [place] [address] | [place] [address] | [phone] | | [facility] | Blvd. | | | | LABORATORY | | | | + + + + + | REFERENCE LAB | [address] [place] [address] | [place] [address] | | | [facility] | Blvd. | [...] | performed at [facility];[address] | | [facility] | | | | [facility] | | LABORATORY | | | | Blvd;[place] [address] | | | | | | | | | | + + + + + + + + | Specimen | + + | | + + + + + + + | Performing | Address | City/State/Zipcode | Phone Number | | Organization | | | | + + + + + | REFERENCE LAB | [address] [place] [address] | [place] [address] | [phone] | | [facility] | Blvd. | | | | LABORATORY | | | | + + + + + | REFERENCE LAB | [address] [place] [address] | [place] [address] | | | [facility] | Blvd. | [...] - 1.030 | REFERENCE | | | [place], | | | LAB | | | [...] | Performed at [facility], [address] | | LAB | | | | [address] | | [facility] | | | | [address] | | LABORATORY | | | | [address] | | | | + + + + + + + + | Specimen | + + | | + + + + + + + | Performing | Address | City/State/Zipcode | Phone Number | | Organization | | | | + + + + + | REFERENCE LAB | [address] [place] [address] | [place] [address] | [phone] | | [facility] | Blvd. | | | | LABORATORY | | | | + + + + + | REFERENCE LAB | [address] [place] [address] | [place] [address] | | | [facility] | Blvd. | [...] | performed at [facility];[address] | | LAB | | | | [place] | | [facility] | | | | Blvd;[place] [address] | | LABORATORY | | + + + + + + + + | Specimen | + + | Urine | + + + + + + + | Performing | Address | City/State/Zipcode | Phone Number | | Organization | | | | + + + + + | REFERENCE LAB | [address] [place] [address] | [place] [address] | [phone] | | [facility] | Blvd. | | | | LABORATORY | | | | + + + + + | REFERENCE LAB | [address] [place] [address] | [place] [address] | | | [facility] | Blvd. | [...] | Performed at [facility], [address] | | [facility] | | | | [address] | | LABORATORY | | | | [address], [place] | | | | | | [address] | | | | + + + + + + + + | Specimen | + + | | + + + + + + + | Performing | Address | City/State/Zipcode | Phone Number | | Organization | | | | + + + + + | REFERENCE LAB | [address] [facility] | [place] [address] | [phone] | | [facility] | Blvd. | | | | LABORATORY | | | | + + + + + | REFERENCE LAB | [address] [facility] | [place] [address] | | | [facility] | Blvd. | [...] | performed at [facility];[address] | | [facility] | | | | [facility] | | LABORATORY | | | | Blvd;[place] [address] | | | | | | | [...] [address] [facility] | [place] [address] | [phone] | | [facility] | Blvd. | | | | LABORATORY | | | | + + + + + | REFERENCE LAB | [address] [facility] | [place] [address] | | | [facility] | Blvd. | [...] | performed at [facility];[address] | | [facility] | | | | [place] | | LABORATORY | | | | Blvd;[place] [address] | | | | | | | | | | + + + + + + + + | Specimen | + + | | + + + + + + + | Performing | Address | City/State/Zipcode | Phone Number | | Organization | | | | + + + + + | REFERENCE LAB | [address] [facility] | [place] [address] | [phone] | | [facility] | Blvd. | | | | LABORATORY | | | | + + + + + | REFERENCE LAB | [address] [facility] | [place] [address] | | | [facility] | Blvd. | [...] | performed at [facility];[address] | | LAB | | | | [place] | | [facility] | | | | Blvd;[place] [address] | | LABORATORY | | + + + + + + + + | Specimen | + + | | + + + + + + + | Performing | Address | City/State/Zipcode | Phone Number | | Organization | | | | + + + + + | REFERENCE LAB | [address] [place] [address] | [place] [address] | [phone] | | [facility] | Blvd. | | | | LABORATORY | | | | + + + + + | REFERENCE LAB | [address] [place] [address] | [place] [address] | | | [facility] | Blvd. | [...] | [facility] | | | | [address], [place], [place] | | LABORATORY | | | | [address] | | | | + + + + + + + + | Specimen | + + | Blood | + + + + + + + | Performing | Address | City/State/Zipcode | Phone Number | | Organization | | | | + + + + + | REFERENCE LAB | [address] [place] [address] | [place] [address] | [phone] | | [facility] | Blvd. | | | | LABORATORY | | | | + + + + + | REFERENCE LAB | [address] [place] [address] | [place] [address] | | | [facility] | Blvd. | [...] [facility] | | | | Blvd;[place] [address] | | LABORATORY | | + + + + + + | K | 4.3Comment: Testing | 3.5 - 4.9 | REFERENCE | | | | performed at [facility];[address] | mmol/L | LAB | | | | [place] | | [facility] | | | | Blvd;[place] [address] | | LABORATORY | | + + + + + + | Cl | 105Comment: Testing | 99 - 109 mmol/L | REFERENCE | | | | performed at [facility];[address] | | LAB | | | | [place] | | [facility] | | | | Blvd;[place] [address] | | LABORATORY | | + + + + + + | CO2 | 26Comment: Testing | 23 - 32 mmol/L | REFERENCE | | | | Performed at [facility], [address] | | LAB | | | | [address] | | [facility] | | | | [address], [place] | | LABORATORY | | | | [address] | | | | + + + + + + | Anion Gap | 11Comment: Testing | 5 - 20 mmol/L | REFERENCE | | | | performed at [facility];[address] | | LAB | | | | [place] | | [facility] | | | | Blvd;[place] [address] | | LABORATORY | | + + [...] [place] | | | | | | [address] | | | | + + + + + + + + | Specimen | + + | Blood | + + + + + + + | Performing | Address | City/State/Zipcode | Phone Number | | Organization | | | | + + + + + | REFERENCE LAB | [address] [place] [address] | [place] [address] | [phone] | | [facility] | Blvd. | | | | LABORATORY | | | | + + + + + | REFERENCE LAB | [address] [place] [address] | [place] [address] | | | [facility] | Blvd. | [...] - 1.030 | REFERENCE | | | [place], | | | LAB | | | [...] | | LABORATORY | | | | [address] | | | | + + + + + + + + | Specimen | + + | Urine | + + + + + + + | Performing | Address | City/State/Zipcode | Phone Number | | Organization | | | | + + + + + | REFERENCE LAB | [address] [facility] | [place] [address] | [phone] | | [facility] | Blvd. | | | | LABORATORY | | | | + + + + + | REFERENCE LAB | [address] [facility] [address] | [place] [address] | | | [facility] | Blvd. | [...] | | | | | | [facility];[address] [facility] | | | | | | Blvd;[place] [address] | | | | | | | | | | + + + + + + + + | Specimen | + + | Blood | + + + + + + + | Performing | Address | City/State/Zipcode | Phone Number | | Organization | | | | + + + + + | REFERENCE LAB | [address] [place] [address] | [place] [address] | [phone] | | [facility] | Blvd. | | | | LABORATORY | | | | + + + + + | REFERENCE LAB | [address] [place] [address] | [place] [address] | | | [facility] | Blvd. | [...]
--- OUTSIDE RECORDS SUMMARY | ~2019-12-09 | XMS | Encounter Summary ---
Demographics + + + | Address | [address] | | | [place] [address] | + + + | Home Phone [...] | | | | [place] [address] | | + + + + + | Emory Larios | ECON | Unknown | | + + + + + Care Team Providers + +------+ + | Care Associate Professor Of Media Arts Name | Role | Phone | + [...] Closed | | Radiology | Diagnoses | Carson, | [facility] [address] | | | | | Malignant | Jennyfer M, | [address] | | | | | neoplasm of | [address] | [place], [place] | | | | | left ovary | [place] | [address] | | | | | (HCC) | AVE | Phone: | | | | | Procedures | SHAI, | [phone] | | | | | CT Chest | [place] [address] | Fax: | | | | | Abdomen | Phone: | [phone] | | | | | Pelvis w | [phone] | | | | | | Contrast | Fax: | | | | | | | [phone] | | +--------+--------+ + + + + Reason for Visit Diagnostic/Screening (Urgent) +--------+--------+ + + + + | Status | Reason | Specialty | Diagnoses / | Referred By | Referred To | | | | | Procedures | Contact | Contact | +--------+--------+ + + + + | Closed | | Radiology | Diagnoses | Nehal, | [facility] [address] | | | | | Malignant | Jennyfer Lou, | [address] | | | | | neoplasm of | [address] | [place], [place] | | | | | left ovary | [place] | [address] | | | | | (HCC) | AVE | Phone: | | | | | Procedures | SHAI, | [phone] | | | | | CT Chest | [place] [address] | Fax: | | | | | Abdomen | Phone: | [phone] | | | | | Pelvis w | [phone] | | | | | | Contrast | Fax: | | | | | | | [phone] | | +--------+--------+ + + + + Encounter Details +--------+ + + + + | Date | Type | Department | Care Team | Description | +--------+ + + + + | 10/16/ | Hospital | [facility] | Jennyfer Calvert | Malignant neoplasm | | 2019 | Encounter | [facility] | M, [address] | of left ovary (HCC) | | | | [address] | [address] | | | | | [place], [place] | [place] [address] | | | | | [address] | [phone] | | | | | [phone] | | | +--------+ + + + [...] [place] | | | | | | [address] | | | | | | | | +--------+ + + + + | 12/17/ | Office | Oncology | Yancy Clifford MD | | | 2019 | Visit | | [address] | | | | | | [place] | | | | | | [address] | | | | | | | | +--------+ + + + + | 12/17/ | Appointment | Infusion Therapy | Yancy Clifford MD | | | 2019 | | | [address] | | | | | | [place] | | | | | | [address] | | | | | | | | +--------+ + + + + | 01/07/ | Appointment | Infusion Therapy | Yancy Clifford MD | | | 2019 | | | [address] | | | | | | [place] | | | | | | [address] | | | | | | | | +--------+ + + + + | 01/07/ | Office | Oncology | Yancy Clifford MD | | | 2019 | Visit | | [address] | | | | | | [place] | | | | | | [address] | | | | | | | | +--------+ + + + + | 01/07/ | Appointment | Infusion Therapy | Yancy Clifford MD | | | 2019 | | | [address] | | | | | | [place] | | | | | | [address] | | | | | | | [...]
--- OUTSIDE RECORDS SUMMARY | 2019-12-09 16:40 | XMS ---
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 E.D. VISIT COUNT (12 MO.) [address] TOTAL 6 NOTE: Visits indicate total known visits. ED/C VISIT TRACKING (12 MO.) 12/09/2019 16:37 [facility] [place] TYPE: Emergency COMPLAINT: - RIGHT LEG PAIN NON INJURY 12/08/2019 13:43 [facility] [place] TYPE: Emergency COMPLAINT: - R LEG SWOLLEN 11/22/2019 13:38 [facility] [place] TYPE: Emergency COMPLAINT: - SORE THROAT, EAR PAIN DIAGNOSES: - Acute pharyngitis, unspecified - Allergy status to narcotic agent status - Other termite inspector (current) drug therapy - Nicotine dependence, unspecified, uncomplicated - Acute upper respiratory infection, unspecified 05/13/2019 08:11 [facility] TYPE: Emergency COMPLAINT: - BLOODY NOSE DIAGNOSES: - Malignant neoplasm of unspecified ovary - Thrombocytopenia, unspecified - Nicotine dependence, unspecified, uncomplicated - Other pancytopenia - Unspecified asthma, uncomplicated - Allergy status to narcotic agent status - Epistaxis - Other termite inspector (current) drug therapy 04/23/2019 09:42 [facility] TYPE: Emergency DIAGNOSES: - Antineoplastic chemotherapy induced [...] int - Unspecified asthma, uncomplicated - Other usp (current) drug therapy - Personal history of malignant neoplasm of liver - Shortness of breath INPATIENT VISIT TRACKING (12 MO.) 05/13/2019 16:32 [facility] DIAGNOSES: - Epistaxis - Pancytopenia [email or web address]
== END 2019-12-09 16:54 | disposition home or self-care (01) ==
LOC: ED 16:37
DX: M79.604 Pain in right leg (principal)

== ENCOUNTER 2019-12-22 17:27 | Emergency (ER) | payer MEDICARE, OTHER ==
[~2019-12-22] VITALS: Ht 162.6 cm; Wt 80.7 kg
--- OUTSIDE RECORDS SUMMARY | 2019-12-22 17:30 | XMS ---
PreManage Notification: ELSY BAXTER Security Display Specialist Events No recent Security Events currently on file CRITERIA MET - [facility] - 2 Visits in 30 Days CARE PROVIDERS CASEY TATUM Physician Field Application Engineer Current PHONE: [phone] Elizabeth has no Care Guidelines for this patient. E.Luis Carlos VISIT COUNT (12 MO.) [address] TOTAL 7 NOTE: Visits indicate total known visits. ED/UCC VISIT TRACKING (12 MO.) 12/22/2019 17:28 [facility] [place] TYPE: Emergency COMPLAINT: - CONGESTION, COUGH 12/09/2019 16:37 [facility] [place] TYPE: Emergency COMPLAINT: - RIGHT LEG PAIN NON INJURY,MSE TO HOME DIAGNOSES: - Pain in right leg - Pain in left leg 12/08/2019 13:43 [facility] [place] TYPE: Emergency COMPLAINT: - R LEG SWOLLEN DIAGNOSES: - Unspecified asthma, uncomplicated - jail (current) use of inhaled steroids - Allergy status to narcotic agent status - Other specified soft tissue disorders - Other music internship (current) drug therapy - Localized edema - Nicotine dependence, unspecified, uncomplicated 11/22/2019 13:38 [facility] [place] TYPE: Emergency COMPLAINT: - SORE THROAT, EAR PAIN DIAGNOSES: - Acute pharyngitis, unspecified - Allergy status to narcotic agent status - Other music internship (current) drug therapy - Nicotine dependence, unspecified, uncomplicated - Acute upper respiratory infection, unspecified 05/13/2019 08:11 [facility] [place] TYPE: Emergency COMPLAINT: - BLOODY NOSE DIAGNOSES: - Malignant neoplasm of unspecified ovary - Thrombocytopenia, unspecified - Nicotine dependence, unspecified, uncomplicated - Other pancytopenia - Unspecified asthma, uncomplicated - Allergy status to narcotic agent status - Epistaxis - Other snf (current) drug therapy [facility]23/2019 09:[facility] DIAGNOSES: - Antineoplastic chemotherapy induced pancytopenia - Epistaxis - Epistaxis - Encounter for antineoplastic chemotherapy - Thrombocytopenia, unspecified 03/22/2019 17:01 [facility] [place] TYPE: Emergency COMPLAINT: - DIFFICULTY BREATHING DIAGNOSES: - Allergy status to narcotic agent status - Personal history of malignant neoplasm of ovary - Nicotine dependence, unspecified, uncomplicated - Personal history of other malignant neoplasm of stomach - Chronic rhinitis - Personal history of malignant carcinoid tumor of lg int - Unspecified asthma, uncomplicated - Other music internship (current) drug therapy - Personal history of malignant neoplasm of liver - Shortness of breath INPATIENT VISIT TRACKING (12 MO.) 05/13/2019 16:32 [facility] TYPE: General Medicine DIAGNOSES: - Epistaxis - Pancytopenia [id number]
[2019-12-22] MEDS ORDERED: FUROSEMIDE40 MG PO (17:53)
[2019-12-22] MEDS ORDERED: POTASSIUM CHLO10 ME2 PO (17:53)
[2019-12-22] MEDS ORDERED: ZITHROMAX250 MG PO (19:49)
[2019-12-22] MEDS ORDERED: MEDROL4 M1 PO (19:49)
== END 2019-12-22 20:03 | disposition home or self-care (01) ==
LOC: ED 17:27
DX: J44.1 Chronic obstructive pulmonary disease with (acute) exacerbation (principal); Z85.43 Personal history of malignant neoplasm of ovary; Z85.05 Personal history of malignant neoplasm of liver; F17.200 Nicotine dependence, unspecified, uncomplicated; Z88.5 Allergy status to narcotic agent; Z79.899 Other long term (current) drug therapy
CPT/HCPCS: 71046; 80053; 85025; 87502; 94640; 99283-25

== ENCOUNTER → 2020-01-17 | Emergency (ER) | payer MEDICARE, OTHER ==
[~2020-01-17] VITALS: Ht 162.6 cm; Wt 80.7 kg
[~2020-01-17] MED LIST changes: +FUROSEMIDE40 MG PO; +MEDROL4 M1 PO; +POTASSIUM CHLO10 ME2 PO; +ZITHROMAX250 MG PO
--- OUTSIDE RECORDS SUMMARY | 2020-01-17 16:38 | XMS ---
PreManage Notification: ELSY BAXTER Security Pit Boss Events No recent Security Events currently on file CRITERIA MET - [facility] - 2 Visits in 30 Days CARE PROVIDERS CASEY TATUM Physician Cnc Service Technician Current PHONE: [phone] Elizabeth has no Care Guidelines for this patient. Care History Medical/Surgical 12/23/2019 [facility] CONTACTED [id number]- NOTIFIED OF PATIENT COPD DX. FOR FURTHER FOLLOW UP AND EDUCATION. ERamses VISIT COUNT (12 MO.) 1 [facility] 7 [facility]. TOTAL 8 NOTE: Visits indicate total known visits. ED/UCC VISIT TRACKING (12 MO.) 01/17/2020 16:37 [facility] [place] TYPE: Emergency COMPLAINT: - PRESSURE ON CHEST, R HAND NUMBNESS 12/22/2019 17:28 [facility] [place] TYPE: Emergency COMPLAINT: - CONGESTION, COUGH DIAGNOSES: - Personal history of malignant neoplasm of liver - Cough - Chronic obstructive pulmonary disease w (acute) exacerbation - Allergy status to narcotic agent status - Other terminal gauger (current) drug therapy - Nicotine dependence, unspecified, uncomplicated - Personal history of malignant neoplasm of ovary 12/09/2019 16:37 [facility] [place] TYPE: Emergency COMPLAINT: - RIGHT LEG PAIN NON INJURY,MSE TO HOME DIAGNOSES: - Pain in right leg - Pain in left leg 12/08/2019 13:43 [facility] [place] TYPE: Emergency COMPLAINT: - R LEG SWOLLEN DIAGNOSES: - Unspecified asthma, uncomplicated - long term (current) use of inhaled steroids - Allergy status to narcotic agent status - Other specified soft tissue disorders - Other terminal gauger (current) drug therapy - Localized edema - Nicotine dependence, unspecified, uncomplicated 11/22/2019 13:38 [facility] [place] TYPE: Emergency COMPLAINT: - SORE THROAT, EAR PAIN DIAGNOSES: - Acute pharyngitis, unspecified - Allergy status to narcotic agent status - Other terminal gauger (current) drug therapy - Nicotine dependence, unspecified, uncomplicated - Acute upper respiratory infection, unspecified 05/13/2019 08:11 [facility] [place] TYPE: Emergency COMPLAINT: - BLOODY NOSE DIAGNOSES: - Malignant neoplasm of unspecified ovary - Thrombocytopenia, unspecified - Nicotine dependence, unspecified, uncomplicated - Other pancytopenia - Unspecified asthma, uncomplicated - Allergy status to narcotic agent status - Epistaxis - Other residential (current) drug therapy 04/23/2019 09:42 [facility]: [facility] DIAGNOSES: - Antineoplastic chemotherapy [...] int - Unspecified asthma, uncomplicated - Other residential (current) drug therapy - Personal history of malignant neoplasm of liver - Shortness of breath INPATIENT VISIT TRACKING (12 MO.) 05/13/2019 16:32 [facility] TYPE: General Medicine DIAGNOSES: - Epistaxis - Pancytopenia [email or web address]
--- NOTE | 2020-01-17 18:14 | EKG ---
[facility] [address] [facility] [place], [place] [address] Signed Normal sinus rhythm Nonspecific ST abnormality Abnormal ECG Confirmed by JAMES MENDEZ DO ([id number]) on 01/17/2020 6:14:10 PM Electronically Signed By: JAMES MENDEZ DO 01/17/20 1814 PATIENT NAME: ELSY BAXTER Electrocardiogram DATE OF : 58 PHYSICIAN: JAMES MENDEZ DO REPORT #: [id number] REPORT IS CONFIDENTIAL AND NOT TO BE RELEASED WITHOUT AUTHORIZATION
--- NOTE | 2020-01-18 19:38 | EKG ---
[facility] [address] [facility] [place], [place] [address] Signed Normal sinus rhythm Nonspecific ST abnormality Abnormal ECG When compared with ECG of 17-JAN-2020 16:42, (Unconfirmed) No significant change was found Confirmed by JAMES MENDEZ DO ([id number]) on 01/18/2020 7:38:09 PM Electronically Signed By: JAMES MENDEZ DO 01/18/20 1938 PATIENT NAME: ELSY BAXTER Electrocardiogram DATE OF : 58 PHYSICIAN: JAMES MENDEZ DO REPORT #: [id number] REPORT IS CONFIDENTIAL AND NOT TO BE RELEASED WITHOUT AUTHORIZATION
== END ==
LOC: ED 16:36
DX: I21.4 Non-ST elevation (NSTEMI) myocardial infarction (principal); F17.200 Nicotine dependence, unspecified, uncomplicated; Z88.5 Allergy status to narcotic agent; Z79.899 Other long term (current) drug therapy
CPT/HCPCS: 36415; 71045; 71046; 80053; 83735; 84484; 85025; 85610; 85730; 93005; 93010; 96365; 96366; 96376; 99285-25; J1644

== ENCOUNTER 2020-01-30 14:43 | Emergency (ER) | payer MEDICARE, OTHER ==
[~2020-01-30] VITALS: Ht 162.6 cm; Wt 83.0 kg
--- OUTSIDE RECORDS SUMMARY | 2020-01-30 14:46 | XMS ---
PreManage Notification: ELSY BAXTER Security Customer Servicer Events No recent Security Events currently on file CRITERIA MET - 6 ED Visits in 6 Months CARE PROVIDERS CASEY TATUM Physician Vinyl Flooring Installer Current PHONE: [phone] Elizabeth has no Care Guidelines for this patient. Care History Medical/Surgical 12/23/2019 [facility] CONTACTED [id number] REH[facility]- NOTIFIED OF PATIENT COPD DX. FOR FURTHER FOLLOW UP AND EDUCATION. Ricci VISIT COUNT (12 MO.) 2 [facility] 8 [facility] TOTAL 10 NOTE: Visits indicate total known visits. ED/C VISIT TRACKING (12 MO.) 01/30/2020 14:43 [facility] [place] TYPE: Emergency COMPLAINT: - LEFT ARM NUMBNESS, GAS? 01/17/2020 21:59 [facility] TYPE: Emergency DIAGNOSES: - Chest Pain - Non-ST elevation (NSTEMI) myocardial infarction - NSTEMI 01/17/2020 16:37 [facility] [place] TYPE: Emergency COMPLAINT: - PRESSURE ON CHEST, R HAND NUMBNESS DIAGNOSES: - Allergy status to narcotic agent status - Nicotine dependence, unspecified, uncomplicated - Other chest pain - Other termite exterminator helper (current) drug therapy - Non-ST elevation (NSTEMI) myocardial infarction 12/22/2019 17:28 [facility] [place] TYPE: Emergency COMPLAINT: - CONGESTION, COUGH DIAGNOSES: - Personal history of malignant neoplasm of liver - Cough - Chronic obstructive pulmonary disease w (acute) exacerbation - Allergy status to narcotic agent status - Other termite exterminator helper (current) drug therapy - Nicotine dependence, unspecified, [...] Other specified soft tissue disorders - Other termite exterminator helper (current) drug therapy - Localized edema - Nicotine dependence, unspecified, uncomplicated 11/22/2019 13:38 [facility] [place] TYPE: Emergency COMPLAINT: - SORE THROAT, EAR PAIN DIAGNOSES: - Acute pharyngitis, unspecified - Allergy status to narcotic agent status - Other snf (current) drug therapy - Nicotine dependence, unspecified, uncomplicated - Acute upper respiratory infection, unspecified 05/13/2019 08:11 [facility] [place] TYPE: Emergency COMPLAINT: - BLOODY NOSE DIAGNOSES: - Malignant neoplasm of unspecified ovary - Thrombocytopenia, unspecified - Nicotine dependence, unspecified, uncomplicated - Other pancytopenia - Unspecified asthma, uncomplicated - Allergy status to narcotic agent status - Epistaxis - Other termite exterminator helper (current) drug therapy 04/23/2019 09:42 [facility] TYPE: Emergency DIAGNOSES: - Antineoplastic chemotherapy induced [...] int - Unspecified asthma, uncomplicated - Other termite exterminator helper (current) drug therapy - Personal history of malignant neoplasm of liver - Shortness of breath INPATIENT VISIT TRACKING (12 MO.) 01/17/2020 21:59 [facility] TYPE: Internal Medicine DIAGNOSES: - Non-ST elevation (NSTEMI) myocardial infarction - Presence of coronary angioplasty implant and graft 05/13/2019 16:32 [facility] DIAGNOSES: - Epistaxis - Pancytopenia [id number]
[2020-01-30] MEDS ORDERED: ATORVASTATIN CA40 MG PO (14:51)
[2020-01-30] MEDS ORDERED: CARVEDILOL6.25 MG PO (14:51)
[2020-01-30] MEDS ORDERED: CLOPIDOGREL75 MG PO (14:51)
[2020-01-30] MEDS ORDERED: BAYER CHEWABLE81 MG PO (14:52)
--- NOTE | 2020-01-30 16:38 | EKG ---
[facility] [address] [facility] [place], [place] [address] Signed Normal sinus rhythm Normal ECG Confirmed by SELENA BASS MD ([id number]) on 01/30/2020 4:37:58 PM Electronically Signed By: SELENA BASS MD 01/30/20 1638 PATIENT NAME: ELSY BAXTER Electrocardiogram DATE OF : 58 PHYSICIAN: SELENA BASS MD REPORT #: [id number] REPORT IS CONFIDENTIAL AND NOT TO BE RELEASED WITHOUT AUTHORIZATION
== END 2020-01-30 19:18 | disposition home or self-care (01) ==
LOC: ED 14:43
DX: R07.9 Chest pain, unspecified (principal); F17.200 Nicotine dependence, unspecified, uncomplicated; Z88.5 Allergy status to narcotic agent; Z79.899 Other long term (current) drug therapy
CPT/HCPCS: 36415; 71260; 80053; 83880; 84484; 85025; 93005; 93010; 99285-25; 99406; Q9967

== ENCOUNTER 2020-03-07 07:26 | Emergency (ER) | payer MEDICARE, OTHER ==
[~2020-03-07] VITALS: Ht 162.6 cm; Wt 83.0 kg
[~2020-03-07 07:26] MED LIST changes: +ATORVASTATIN CA40 MG PO; +BAYER CHEWABLE81 MG PO; +CARVEDILOL6.25 MG PO; +CLOPIDOGREL75 MG PO
--- OUTSIDE RECORDS SUMMARY | 2020-03-07 07:28 | XMS ---
PreManage Notification: ELSY BAXTER Security Quality Rn Events No recent Security Events currently on file CRITERIA MET - 6 ED Visits in 6 Months CARE PROVIDERS CASEY TATUM Physician Computing Consultant Current PHONE: [phone] Elizabeth has no Care Guidelines for this patient. Care History Medical/Surgical 12/23/2019 [facility] - [facility] CONTACTED [id number]- NOTIFIED OF PATIENT COPD DX. FOR FURTHER FOLLOW UP AND EDUCATION. Ricci VISIT COUNT (12 MO.) 2 [facility] 9 [facility] TOTAL 11 NOTE: Visits indicate total known visits. ED/C VISIT TRACKING (12 MO.) 03/07/2020 07:26 [facility] TYPE: Emergency COMPLAINT: - CHEST PAIN 01/30/2020 14:43 [facility] TYPE: Emergency COMPLAINT: - LEFT ARM NUMBNESS, GAS? DIAGNOSES: - Other manager terminal (current) drug therapy - Nicotine dependence, unspecified, uncomplicated - Nicotine dependence, cigarettes, uncomplicated - Allergy status to narcotic agent status - Chest pain, unspecified 01/17/2020 21:59 [facility] TYPE: Emergency DIAGNOSES: - Chest Pain - Non-ST elevation (NSTEMI) myocardial infarction - NSTEMI 01/17/2020 16:37 [facility] [place] TYPE: Emergency COMPLAINT: - PRESSURE ON CHEST, R HAND NUMBNESS DIAGNOSES: - Allergy status to narcotic agent status - Nicotine dependence, unspecified, uncomplicated - Other chest pain - Other manager terminal (current) drug therapy - Non-ST elevation (NSTEMI) myocardial infarction 12/22/2019 17:28 [facility] [place] TYPE: Emergency COMPLAINT: - CONGESTION, COUGH DIAGNOSES: - Personal history of malignant neoplasm of liver - Cough - Chronic obstructive pulmonary disease with (acute) exacerbati - Allergy status to narcotic agent status - Other care home (current) drug therapy - Nicotine dependence, unspecified, uncomplicated - Personal history of malignant neoplasm of ovary 12/09/2019 16:37 [facility] [place] TYPE: Emergency COMPLAINT: - RIGHT LEG PAIN NON INJURY,MSE TO HOME DIAGNOSES: - Pain in right leg - Pain in left leg 12/08/2019 13:43 [facility] [place] TYPE: Emergency COMPLAINT: - R LEG SWOLLEN DIAGNOSES: - Unspecified asthma, uncomplicated - terminal supervisor (current) use of inhaled steroids - Allergy status to narcotic agent status - Other specified soft tissue disorders - Other manager terminal (current) drug therapy - Localized edema - Nicotine dependence, unspecified, uncomplicated 11/22/2019 13:38 [facility] [place] TYPE: Emergency COMPLAINT: - SORE THROAT, EAR PAIN DIAGNOSES: - Acute pharyngitis, unspecified - Allergy status to narcotic agent status - Other manager terminal (current) drug therapy - Nicotine dependence, unspecified, uncomplicated - Acute upper respiratory infection, unspecified 05/13/2019 08:11 [facility] [place] TYPE: Emergency COMPLAINT: - BLOODY NOSE DIAGNOSES: - Malignant neoplasm of unspecified ovary - Thrombocytopenia, unspecified - Nicotine dependence, unspecified, uncomplicated - Other pancytopenia - Unspecified asthma, uncomplicated - Allergy status to narcotic agent status - Epistaxis - Other care home (current) drug therapy [facility] DIAGNOSES: - 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 Rivas JEONG TYPE: General Medicine DIAGNOSES: - Epistaxis - [email or web address] [email or web address]
[2020-03-07] MEDS ORDERED: POTASSIUM CHLO20 ME1 PO (07:37)
[2020-03-07] MEDS ORDERED: FUROSEMIDE20 MG PO (07:37)
--- NOTE | 2020-03-07 14:23 | EKG ---
[facility] [address] [place], [place] [address] Signed Normal sinus rhythm Normal ECG When compared with ECG of 30-JAN-2020 14:47, No significant change was found Confirmed by HAILEY CEE MD ([id number]) on 03/07/2020 2:23:22 PM Electronically Signed By: HAILEY CEE MD 03/07/20 1423 PATIENT NAME: ELSY BAXTER Electrocardiogram DATE OF : 58 PHYSICIAN: HAILEY CEE MD REPORT #: [id number] REPORT IS CONFIDENTIAL AND NOT TO BE RELEASED WITHOUT AUTHORIZATION
== END 2020-03-07 09:17 | disposition home or self-care (01) ==
LOC: ED 07:26
DX: R07.9 Chest pain, unspecified (principal); J45.909 Unspecified asthma, uncomplicated; Z87.891 Personal history of nicotine dependence; Z88.5 Allergy status to narcotic agent; Z79.899 Other long term (current) drug therapy
CPT/HCPCS: 71045; 80053; 81001; 84484; 85025; 93005; 93010; 99285-25

== ENCOUNTER 2021-11-05 11:13 | Emergency (ER) | payer MEDICARE, OTHER ==
[~2021-11-05] VITALS: Ht 162.6 cm; Wt 77.6 kg
[~2021-11-05 11:13] MED LIST changes: +FUROSEMIDE20 MG PO; +POTASSIUM CHLO20 ME1 PO
[2021-11-05] MEDS ORDERED: OMEPRAZOLE20 MG PO (15:09)
--- NOTE | 2021-11-05 17:16 | EKG ---
[facility] [address] [facility] [place], [place] [address] Signed Normal sinus rhythm Normal ECG When compared with ECG of 07-MAR-2020 07:32, No significant change was found Confirmed by SELENA BASS MD ([id number]) on 11/05/2021 5:16:37 PM Electronically Signed By: SELENA BASS MD 11/05/21 1716 PATIENT NAME: ELSY BAXTER Electrocardiogram DATE OF : 58 PHYSICIAN: SELENA BASS MD REPORT #: [id number] REPORT IS CONFIDENTIAL AND NOT TO BE RELEASED WITHOUT AUTHORIZATION
== END 2021-11-05 14:55 | disposition home or self-care (01) ==
LOC: ED 11:13
DX: J18.9 Pneumonia, unspecified organism (principal); Z20.822 Contact with and (suspected) exposure to COVID-19; Z87.891 Personal history of nicotine dependence; Z88.5 Allergy status to narcotic agent; Z79.899 Other long term (current) drug therapy; Z79.82 Long term (current) use of aspirin
CPT/HCPCS: 71045; 80053; 80500; 83880; 84484; 85025; 93005; 93010; 94640; 96365; 96375; 99285-25; C9803; J0696; J1100; J7512; U0003

== ENCOUNTER 2021-11-12 04:28 | Inpatient (IN) | payer MEDICARE, OTHER ==
[~2021-11-12] VITALS: Ht 162.6 cm; Wt 77.6 kg
[~2021-11-12 04:28] MED LIST changes: +OMEPRAZOLE20 MG PO
--- OUTSIDE RECORDS SUMMARY | 2021-11-12 04:36 | XMS ---
PreManage Notification: ELSY BAXTER Security Weather Forecaster Events No recent Security Events currently on file CRITERIA MET - [facility] - 2 Visits in 30 Days CARE PROVIDERS CASEY TATUM Physician Scaffold Builder Current PHONE: Unknown Elizabeth has no Care Guidelines for this patient. Care History Medical/Surgical 03/08/2020 [facility] - PATIENT HAS A INSURANCE EXAMINER DR RIZVI- [phone] - PATIENT LAST VISIT WITH [facility] 02/08/20 NEXT APT SCHEDULED 03/14/20 - REQUESTED RECENT ED VISIT RECORDS SENT TO INSURANCE EXAMINER OFFICE. 12/23/2019 [facility] - [facility] CONTACTED [id number]- NOTIFIED OF PATIENT COPD DX. FOR FURTHER FOLLOW UP AND EDUCATION. E.D. VISIT COUNT (12 MO.) 2 [facility]. TOTAL 2 NOTE: Visits indicate total known visits. ED/UCC VISIT TRACKING (12 MO.) 11/12/2021 04:29 [facility] [place] TYPE: Emergency COMPLAINT: - SHORTNESS OF BREATH 11/05/2021 11:14 [facility] [place] TYPE: Emergency COMPLAINT: - DIFF BREATHING, COUGH DIAGNOSES: - Personal history of nicotine dependence - Other long term acute care registered nurse (current) drug therapy - Allergy status to narcotic agent - Pneumonia, unspecified organism - Shortness of breath - long term acute care registered nurse (current) use of aspirin INPATIENT VISIT TRACKING (12 MO.) No inpatient visits to display in this time frame [email or web address]
[2021-11-12] MEDS ORDERED: FLONASE ALLERG9.9 ML NAS (13:37)
[2021-11-12] MEDS ORDERED: VENTOLIN HFA18 GM INH (15:22)
--- NOTE | 2021-11-12 17:04 | NUR ---
rn in room with Dr. aquino transfer to [facility] accepted. supervisor refractory products working on transfer now. pt happy.
--- NOTE | 2021-11-12 18:21 | NUR ---
report called to [facility] to Marlee morgan
--- NOTE | 2021-11-13 20:01 | EKG ---
[facility] [address] [place], [place] [address] Signed Normal sinus rhythm Low voltage QRS Borderline ECG When compared with ECG of 05-NOV-2021 12:03, No significant change was found Confirmed by JAMES MENDEZ DO ([id number]) on 11/13/2021 8:01:04 PM Electronically Signed By: JAMES MENDEZ DO 11/13/212000 PATIENT NAME: ELSY BAXTER ADALBERTO Electrocardiogram DATE OF : 58 PHYSICIAN: JAMES MENDEZ DO REPORT #: [id number] REPORT IS CONFIDENTIAL AND NOT TO BE RELEASED WITHOUT AUTHORIZATION
== END 2021-11-12 18:00 | disposition short-term general hospital (02) | DRG 186 ==
LOC: ED 04:28 → MS 04:30
PROVIDERS: ADMIT Student in an Organized Health Care Education/Training Program; ATTEND Student in an Organized Health Care Education/Training Program
DX: J90 Pleural effusion, not elsewhere classified (principal); J96.01 Acute respiratory failure with hypoxia; C56.9 Malignant neoplasm of unspecified ovary; C77.4 Secondary and unspecified malignant neoplasm of inguinal and lower limb lymph nodes; C79.89 Secondary malignant neoplasm of other specified sites; C78.7 Secondary malignant neoplasm of liver and intrahepatic bile duct; C78.5 Secondary malignant neoplasm of large intestine and rectum; C78.89 Secondary malignant neoplasm of other digestive organs; C80.0 Disseminated malignant neoplasm, unspecified; Z20.822 Contact with and (suspected) exposure to COVID-19; I10 Essential (primary) hypertension; K21.9 Gastro-esophageal reflux disease without esophagitis; E78.5 Hyperlipidemia, unspecified; J44.9 Chronic obstructive pulmonary disease, unspecified; Z92.21 Personal history of antineoplastic chemotherapy; Z95.828 Presence of other vascular implants and grafts; Z87.891 Personal history of nicotine dependence; Z90.710 Acquired absence of both cervix and uterus; Z98.51 Tubal ligation status; Z98.890 Other specified postprocedural states; Z90.49 Acquired absence of other specified parts of digestive tract; Z88.5 Allergy status to narcotic agent; Z79.899 Other long term (current) drug therapy; Z79.82 Long term (current) use of aspirin; Z79.51 Long term (current) use of inhaled steroids
CPT/HCPCS: 71045; 71260; 80053; 80500; 83880; 84484; 85025; 85379; 85610; 85730; 87070; 87205; 93005; 93010; 93970; 94640; 99285-25; C9803; G0378; J0692; J0696; J1940; J2930; U0003